=== PATIENT | female | born 1950 | race African-American/Black ===

== ENCOUNTER 2017-11-02 07:21 | Emergency (ER) | payer MEDICARE, OTHER, SELFPAY ==
[2017-11-02 07:22] VITALS: BP 173/84; PULSE 71; RESP 16; TEMP 36.7; O2SAT 97; BMI 31.1
--- NOTE | 2017-11-02 07:29 | RAD_ITS ---
STUDY: X-RAY - RIGHT ANKLE REASON FOR EXAM: Female, 67 years old. Status post fall with ankle pain and swelling. TECHNIQUE: 3 view(s) of the ankle. COMPARISON: None. FINDINGS: Osseous alignment appear anatomic. The ankle mortise is preserved. There is no acute fracture lucency. There is no cortical step-off. 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 There is a well-corticated degenerative plantar spur on the calcaneus. There is nonspecific marked lateral soft tissue swelling. RAD/Ankle min 3 Views IMPRESSION: No radiographically evident acute osseous abnormality. Marked lateral soft tissue swelling/edema. Electronically Signed: Ephraim Leonard MD at 8:24 EDT , Service support ,
--- NOTE | 2017-11-02 07:29 | RAD_ITS ---
STUDY: X-RAY - RIGHT TIBIA AND FIBULA REASON FOR EXAM: Female, 67 years old. Pain status post fall. TECHNIQUE: 2 view(s) of the tibia and fibula were obtained. COMPARISON: None. FINDINGS: Osseous alignments appear anatomic. There is no acute fracture lucency. There is no cortical step-off. There is soft tissue swelling/edema overlying the lateral malleolus. A well corticated plantar calcaneal spur is identified degenerative in nature. RAD/Tibia & Fibula 2 Views IMPRESSION: No plain film evident acute osseous abnormality. Lateral malleolar soft tissue swelling. Degenerative anterior spur on the calcaneus. Electronically Signed: Ephraim Leonard MD at 8:25 EDT , Service support ,
[2017-11-02] MEDS: Ondansetron ODT 4 MG Tablet PO (08:03)
[2017-11-02] MEDS: Morphine 4 MG/ML Syringe IM (08:03)
--- NOTE | 2017-11-02 08:29 | ED.VISSUMM ---
- ER Visit Summary Date of Service: 11/02/17 Chief Complaint: [Injury right ankle] History of Present Illness: The patient is a 67 F [presents to the emergency department via EMS after sustaining an injury to her right ankle during a fall this morning. Patient states that she had gone out to her car to take her to dialysis when she slipped and fell injuring her right ankle. Patient initially able to bear some weight but actually had to crawl into the house where she was able to get onto the couch and call for help. Patient denies any other injuries. Patient denies striking her head. Patient denies neck pain. Patient denies chest pain or abdominal pain.] Physical Examination: [HEENT-PERRLA, EOMI. Cranial nerves II through XII grossly intact. TMs clear. Mucous membranes moist. No adenopathy. No C-spine tenderness on palpation. Cardiovascular-regular rate and rhythm without murmur or ectopy Lungs-clear to auscultation, chest wall stable without crepitus or subcu emphysema Abdomen-normoactive bowel sounds, soft, nontender, no rebound or rigidity, no peritoneal signs. Extremities-intact ?4, normal range of motion, normal pulses, atraumatic]. Right ankle-patient has soft tissue swelling over the lateral malleolus. Patient has tenderness over the proximal fibular head and lateral malleolus. No pain at the base of the fifth metatarsal. Neurovascular intact. No obvious deformity. Test Results: [X-rays of the right ankle and right tib-fib obtained showed no fractures.] Emergency Department Course and Treatment: [Patient will receive Skip wrap, air splint, and crutches. Patient was given 4 mg of morphine and 4 mg of Zofran on arrival.] Treatment Plan: [Patient advised to ice and elevate extremity and follow-up with her primary care physician in 7-10 days. Patient will be given a prescription for 12 [place].] Disposition: [Discharged to home in stable condition.] Impression: [Right ankle sprain] This note was generated with Scan•Jour dictation software. It may contain incorrect words, spelling, and punctuation that were not noted in review of the chart prior to signing ED Disposition - Plan for ED Patient: Chief Complaint: Lower Extremity Injury Referrals: Annette Mckniley MD [Primary Care Provider] -
--- NOTE | 2017-11-02 08:32 | ED.DEP ---
ED Disposition - Plan for ED Patient: Chief Complaint: Lower Extremity Injury Instructions: ED Sprain Ankle W X Ray Prescriptions: Hydrocodone Bitart/Apap 5-325 [Fol[place] 5/325] 1 - 2 tab PO Q4H PRN PRN 3 Days #12 tab PRN Reason: Pain Referrals: Annette Mckinley MD [Primary Care Provider] - 5-7 Days
== END 2017-11-02 08:44 | disposition home or self-care (01) ==
PROVIDERS: Emergency Provider Emergency Medicine; Family Provider Internal Medicine; PCP Internal Medicine
DX: S93.401A Sprain of unspecified ligament of right ankle, initial encounter (principal); W01.0XXA Fall on same level from slipping, tripping and stumbling without subsequent striking against object, initial encounter; Y93.01 Activity, walking, marching and hiking; Y92.008 Other place in unspecified non-institutional (private) residence as the place of occurrence of the external cause; Y99.8 Other external cause status
CPT/HCPCS: 73590; 73610; 96372; 99285

== ENCOUNTER 2018-06-15 23:18 | Observation (INO) | payer MEDICARE, OTHER, SELFPAY ==
[2018-06-15 23:20] VITALS: BP 157/74; PULSE 87; RESP 19; TEMP 36.8; O2SAT 98; BMI 35.4
--- NOTE | 2018-06-15 23:20 | ED.RN ---
CALLED FOR EKG PER RN REQUEST, PULLED OLD EKGS FOR
--- NOTE | 2018-06-15 23:30 | EKG12_ITS ---
Test Reason : CP Blood Pressure : / mmHG Vent. Rate : 082 BPM Atrial Rate : 082 BPM P-R Int : 156 ms QRS Dur : 078 ms QT Int : 382 ms P-R-T Axes : 046 -24 105 degrees QTc Int : 446 ms Normal sinus rhythm Possible Left atrial enlargement T wave abnormality, consider lateral ischemia Abnormal ECG Confirmed by BRIDGET GUADALUPE, LUIZ ([id number]), editor index JAMES MULLEN ([id number]) on 06/19/2018 2:51:26 PM Referred By: JADE Confirmed By:LUIZ GILL MD
--- NOTE | 2018-06-15 23:31 | ED.VISSUMM ---
- ER Visit Summary Date of Service: 06/15/18 Chief Complaint: Chest pain History of Present Illness: The patient is a 67 F who presents for chest pain for approximately 7 hours. Onset was at rest, and pain is in the right chest, described as a bad dull ache. Pain waxes and wanes in intensity but has never completely gone away. It is not relieved or worsened by anything, including movement, breathing, cough, exertion or touch. Patient tried a Valium and half a Vicodin without any relief. She thought it might be a muscle spasm. She states she had similar pain about about 3 years ago but does not know what it was from. She is had a cardiac catheterization in the past and states she had a small amount of disease. She is diabetic, hypertensive, has a history of shingles but is not quite sure exactly where. She is not on any blood thinners. No history of blood clot in the lungs or legs, no recent travel or surgery. Physical Examination: Vital signs: afebrile, hemodynamically stable, no hypoxia on room air General: well nourished, well developed, in mild discomfort, clutching her right chest and breast with the left hand Skin: warm, dry, no rash, no pallor, no hyperesthesia to the right back or chest HEENT: normocephalic and atraumatic; PERRL, EOMI, moist mucous membranes Cardiovascular: regular rate and rhythm without murmurs, no peripheral edema, 2+ pulses all distal extremities Respiratory: No increased work of breathing, lungs are clear to auscultation bilaterally, no rales, rhonchi or wheezing Abdominal: Abdomen is soft, nontender with normoactive bowel sounds, no guarding or rebound, no masses MSK: Moves all extremities, no deformities, normal strength Neuro: Awake and alert, oriented ?4. No facial droop, sensation and motor function intact and symmetric Test Results: Abnormal Lab Results 06/16/18 06/16/18 06/16/18 00:05 00:05 00:05 WBC 9.1 RBC 4.90 Hgb 12.9 Hct 39.4 MCV 80.4 L MCH 26.3 L MCHC 32.7 RDW 14.2 RDW Differential 41.3 Plt Count 176 MPV 11.6 Immature Gran % (Auto) 0.500 Neut % (Auto) 52.2 Lymph % (Auto) 36.0 [place] % (Auto) 8.2 Eos % (Auto) 2.4 Baso % (Auto) 0.7 Absolute Neuts (auto) 4.8 Absolute Lymphs (auto) 3.29 Total Counted Not Reportable PT 12.5 INR 0.9 APTT 26.9 Sodium 136 Potassium 3.8 Chloride 100 Carbon Dioxide 29.0 Anion Gap 7 BUN 23 H Creatinine 1.22 H Estim Creat Clear Calc 33.30 Est GFR (MDRD) Af Amer 56 L Est GFR (MDRD) Non-Af 47 L BUN/Creatinine Ratio 18.9 Glucose 310 H Calcium 8.3 L Troponin I 0.022 Clinical Impression(s) from Imaging Studies Chest X-Ray 06/15/18 23:55 IMPRESSION: There is no acute cardiopulmonary disease. Other nonacute findings as outlined above. Electronically Signed: Nury Falcon MD at 0:09 EST , Service support , Chest CTA 06/16/18 01:13 IMPRESSION: No demonstrated pulmonary embolism, aneurysm, leak or arterial dissection. Mild pericardial fluid, coronary artery calcification, ossification along the aortic arch and left ventricular wall thickening. Emphysema. No pulmonary edema, congestive heart failure or confluent pneumonia. Other nonacute findings as outlined above. Electronically Signed: Nury Falcon MD at 2:44 EST , Service support , Medications Given Discontinued Medications Morphine Sulfate () 4 mg IV X1 ONE Stop: 06/16/18 00:26 Nitroglycerin (Nitrostat) 0.4 mg SUBLINGUAL Q5M MÓNICA Stop: 06/15/18 23:41 Last Admin: 06/16/18 00:04 Dose: 0.4 mg Admin: 06/15/18 23:54 Dose: 0.4 mg Admin: 06/15/18 23:38 Dose: 0.4 mg Emergency Department Course and Treatment: Patient received aspirin by EMS and 1 nitroglycerin without any change in her discomfort. EKG concerning for new T wave inversions in the anterolateral leads that were not present on an EKG from 2011. Otherwise a sinus rhythm. Chest pain workup was performed. Patient was given additional nitro. She does have a history of shingles which she thinks was on her right torso but does not equate her current pain to her post-herpetic neuralgia. Given her EKG changes, significant risk factors, and the description of the pain, cardiac etiology must be ruled out before considering postherpetic neuralgia. Patient had a troponin within normal range. Glucose elevated at 310. Creatinine of 1.22, with prior creatinine for comparison from 2012. This is likely patient's baseline. No electrolyte derangements. No leukocytosis or anemia. Chest x-ray showed no acute process. Patient has no risk factors for pulmonary embolism, no hypoxia, no tachycardia, and no tachypnea. Thus PE is low on the differential. However, she is having severe right-sided pain, constant, and patient is not PERC negative due to age. She is low risk per Well's criteria. D-dimer obtained and was elevated, even per age-adjusted criteria. CTA showed no PE or dissection. A chart review did show an EKG from 2017 that exhibited the T wave inversions present on patient's EKG today. Thus this may be baseline for her. Due to patient's significant risk factors, her right-sided chest pain, and T wave inversions on EKG, she will be admitted for further chest pain workup. Patient discussed with Dr. Lozano for admission. Treatment Plan: [] Disposition: [] Impression: right-sided chest pain, concern for ACS This note was generated with Olu[employer]ai dictation software. It may contain incorrect words, spelling, and punctuation that were not noted in review of the chart prior to signing ED Disposition - Plan for ED Patient: Disposition: Acute Care Hospital [facility] Chief Complaint: Chest Pain
--- NOTE | 2018-06-15 23:34 | ED.DCSUM_ITS ---
- ER Visit Summary Date of Service: 06/15/18 Chief Complaint: Chest pain History of Present Illness: The patient is a 67 F who presents for chest pain for approximately 7 hours. Onset was at rest, and pain is in the right chest, described as a bad dull ache. Pain waxes and wanes in intensity but has never completely gone away. It is not relieved or worsened by anything, including movement, breathing, cough, exertion or touch. Patient tried a Valium and half a Vicodin without any relief. She thought it might be a muscle spasm. She states she had similar pain about about 3 years ago but does not know what it was from. She is had a cardiac catheterization in the past and states she had a small amount of disease. She is diabetic, hypertensive, has a history of shingles but is not quite sure exactly where. She is not on any blood thinners. No history of blood clot in the lungs or legs, no recent travel or surgery. Physical Examination: Vital signs: afebrile, hemodynamically stable, no hypoxia on room air General: well nourished, well developed, in mild discomfort, clutching her right chest and breast with the left hand Skin: warm, dry, no rash, no pallor, no hyperesthesia to the right back or chest HEENT: normocephalic and atraumatic; PERRL, EOMI, moist mucous membranes Cardiovascular: regular rate and rhythm without murmurs, no peripheral edema, 2+ pulses all distal extremities Respiratory: No increased work of breathing, lungs are clear to auscultation bilaterally, no rales, rhonchi or wheezing Abdominal: Abdomen is soft, nontender with normoactive bowel sounds, no guarding or rebound, no masses MSK: Moves all extremities, no deformities, normal strength Neuro: Awake and alert, oriented ?4. No facial droop, sensation and motor function intact and symmetric Test Results: Abnormal Lab Results 06/16/18 06/16/18 06/16/18 00:05 00:05 00:05 WBC 9.1 RBC 4.90 Hgb 12.9 Hct 39.4 MCV 80.4 L MCH 26.3 L MCHC 32.7 RDW 14.2 RDW Differential 41.3 Plt Count 176 MPV 11.6 Immature Gran % (Auto) 0.500 Neut % (Auto) 52.2 Lymph % (Auto) 36.0 [place] % (Auto) 8.2 Eos % (Auto) 2.4 Baso % (Auto) 0.7 Absolute Neuts (auto) 4.8 Absolute Lymphs (auto) 3.29 Total Counted Not Reportable PT 12.5 INR 0.9 APTT 26.9 Sodium 136 Potassium 3.8 Chloride 100 Carbon Dioxide 29.0 Anion Gap 7 BUN 23 H Creatinine 1.22 H Estim Creat Clear Calc 33.30 Est GFR (MDRD) Af Amer 56 L Est GFR (MDRD) Non-Af 47 L BUN/Creatinine Ratio 18.9 Glucose 310 H Calcium 8.3 L Troponin I 0.022 Clinical Impression(s) from Imaging Studies Chest X-Ray 06/15/18 23:55 IMPRESSION: There is no acute cardiopulmonary disease. Other nonacute findings as outlined above. Electronically Signed: Nury Falcon MD at 0:09 EST , Service support , Chest CTA 06/16/18 01:13 IMPRESSION: No demonstrated pulmonary embolism, aneurysm, leak or arterial dissection. Mild pericardial fluid, coronary artery calcification, ossification along the aortic arch and left ventricular wall thickening. Emphysema. No pulmonary edema, congestive heart failure or confluent pneumonia. Other nonacute findings as outlined above. Electronically Signed: Nury Falcon MD at 2:44 EST , Service support , Medications Given Discontinued Medications Morphine Sulfate () 4 mg IV X1 ONE Stop: 06/16/18 00:26 Nitroglycerin (Nitrostat) 0.4 mg SUBLINGUAL Q5M MÓNICA Stop: 06/15/18 23:41 Last Admin: 06/16/18 00:04 Dose: 0.4 mg Admin: 06/15/18 23:54 Dose: 0.4 mg Admin: 06/15/18 23:38 Dose: 0.4 mg Emergency Department Course and Treatment: Patient received aspirin by EMS and 1 nitroglycerin without any change in her discomfort. EKG concerning for new T wave inversions in the anterolateral leads that were not present on an EKG from 2011. Otherwise a sinus rhythm. Chest pain workup was performed. Patient was given additional nitro. She does have a history of shingles which she thinks was on her right torso but does not equate her current pain to her post-herpetic neuralgia. Given her EKG changes, significant risk factors, and the description of the pain, cardiac etiology must be ruled out before considering postherpetic neuralgia. Patient had a troponin within normal range. Glucose elevated at 310. Creatinine of 1.22, with prior creatinine for comparison from 2012. This is likely patient's baseline. No electrolyte derangements. No leukocytosis or anemia. Chest x-ray showed no acute process. Patient has no risk factors for pulmonary embolism, no hypoxia, no tachycardia, and no tachypnea. Thus PE is low on the differential. However, she is having severe right-sided pain, constant, and patient is not PERC negative due to age. She is low risk per Well's criteria. D-dimer obtained and was elevated, even per age-adjusted criteria. CTA showed no PE or dissection. A chart review did show an EKG from 2017 that exhibited the T wave inversions present on patient's EKG today. Thus this may be baseline for her. Due to patient's significant risk factors, her right-sided chest pain, and T wave inversions on EKG, she will be admitted for further chest pain workup. Patient discussed with Dr. Lozano for admission. Treatment Plan: [] Disposition: [] Impression: right-sided chest pain, concern for ACS This note was generated with Quintiles dictation software. It may contain incorrect words, spelling, and punctuation that were not noted in review of the chart prior to signing ED Disposition - Plan for ED Patient: Disposition: Acute Care Hospital [facility] Chief Complaint: Chest Pain
[2018-06-15 23:35] VITALS: O2SAT 97
[2018-06-15 23:38] VITALS: BP 196/82; PULSE 77
[2018-06-15 23:54] VITALS: BP 180/87; PULSE 80
--- NOTE | 2018-06-15 23:55 | RAD_ITS ---
STUDY: X-RAY CHEST REASON FOR EXAM: Female, 67 years old. Sternal chest pain with radiation to jaw, pain comes and goes TECHNIQUE: PA and lateral views of the chest. COMPARISON: Prior comparison studies are not available for review at this time. FINDINGS: There are superimposed monitor leads. The lungs are clear and expanded. There is no demonstrated pleural abnormality. Normal size heart. Normal mediastinum and stefany. Normal visualized pulmonary arteries. There is atherosclerotic calcification of the aortic arch with tortuosity. There are degenerative changes of the visualized thoracic spine. There is degenerative osteoarthritis of the bilateral shoulders and prior ORIF right shoulder. There is no demonstrated abnormality of the visualized soft tissue structures of the upper abdomen. RAD/Chest PA and Lateral IMPRESSION: There is no acute cardiopulmonary disease. Other nonacute findings as outlined above. Electronically Signed: Nury Falcon MD at 0:09 EST , Service support ,
[2018-06-16] VITALS (12 sets, daily range): BP systolic 129–202; BP diastolic 70–100; PULSE 63–94; RESP 17–24; TEMP 36.2–36.6; O2SAT 95–99; BMI 34.1; BMI 34.2
[2018-06-16 00:19] LABS: Absolute Lymphocyte Count 3.29 X10^3/ul (0.83-4.51); Absolute Neutrophil Count 4.8 X10^3/uL (2.0-7.7); Basophil# 0.06 X10^3/uL; Basophil% 0.7 % (0-1); Eosinophil# 0.22 X10^3/uL; Eosinophils% 2.4 % (0-5); Hematocrit 39.4 % (37-47); Hemoglobin 12.9 g/dl (12.0-15.0); Lymphocyte # 3.29 X10^3/ul (4.0); Mean Corp Hgb Conc 32.7 g/gl (32-36); Mean Corpuscular Hgb 26.3 pg (27.0-32.0); Mean Corpuscular Volume 80.4 fL (81-99); Mean Platelet Vol. 11.6 fl (6.2-12.0); Monocyte# 0.75 X10^3/uL; Monocyte% 8.2 % (0-10); Neutrophil # 4.76 X10^3/uL (2.7-7.7); Neutrophil % 52.2 % (47-70); Platelet Count 176 K/mm3 (150-450); RBC Distribution Width CV 14.2 % (11.6-14.6); RBC Distribution Width SD 41.3 fl (35.1-43.9); White Blood Count 9.1 K/mm3 (4.4-11.0)
[2018-06-16 00:21] LABS: POSITIVE COUNT NO; POSITIVE DIFFERENTIAL NO; POSITIVE MORPHOLOGY NO
[2018-06-16 00:26] LABS: International Normalized Ratio 0.9; Partial Thromboplast Time 26.9 Seconds (24.1-36.2); Prothrombin Time (Protime)PT. 12.5 SECONDS (11.7-14.9)
[2018-06-16 00:27] LABS: Anion Gap 7 (5-15); BUN 23 mg/dL (7-18); BUN/Creat Ratio 18.9 RATIO (10-20); Calcium,Total 8.3 mg/dL (8.5-10.1); Chloride 100 mmol/L (98-107); Creatinine, Serum 1.22 mg/dL (0.55-1.02); EST Glomerular Filtration Rate 47 mL/min (>60); Est Glom Filt Rate - Afr Amer 56 mL/min (>60); Glucose 310 mg/dL (74-106); Potassium 3.8 mmol/L (3.5-5.1); Sodium Level 136 mmol/L (136-145)
[2018-06-16 01:12] LABS: D-Dimer Quantitative (DVT/PE) 0.92 FEU/ug/m (0.27-0.49)
--- NOTE | 2018-06-16 01:13 | CT_ITS ---
STUDY: CTA CHEST REASON FOR EXAM: Female, 67 years old. Midsternal chest pain radiating to jaw, elevated d-dimer. History of diabetes, hypertension, ascites RADIATION DOSAGE (If Supplied By Facility): CTDIvol = ( 12.65 ) mGy, DLP = ( 608.27 ) mGycm TECHNIQUE: The examination was performed with the intravenous administration of 100 ml of Isovue 370 contrast material. Post-processing of the angiographic images was performed, with multiplanar reformation and 3D reconstruction. There is obesity, the entirety of soft tissue is not imaged. Individualized dose optimization techniques were used for this CT. COMPARISON: Chest x-ray 06/15/2018. CT chest 02/04/2007 axial images only FINDINGS: Normal enhancement of the main pulmonary artery and right and left pulmonary arteries. Normal enhancement of the bilateral peripheral pulmonary arteries. There is no demonstrated pulmonary embolism. Calcification atheromatous wall thickening of the aortic arch and at the origin of the left subclavian artery. There is a bovine arch as a vascular variant. There is no demonstrated aortic dissection. Mild pericardial fluid. There are calcifications of the coronary arteries. Thickening of the left ventricular wall. Normal mediastinum. Normal hilar regions. Mild symmetric bilateral emphysema with small right, moderate sized subsegmental apical cysts/bulla. Linear changes in the lung bases felt to be chronic likely scarring, minor atelectasis in the left upper lobe.. The lungs are well expanded. Normal pulmonary parenchyma. Normal pleura. Normal chest wall structures. There are degenerative changes of thoracic spine and bilateral shoulder joint status post ORIF left shoulder. Liver is incompletely imaged but appears enlarged. CT/CTA Chest W/WO Contrast IMPRESSION: No demonstrated pulmonary embolism, aneurysm, leak or arterial dissection. Mild pericardial fluid, coronary artery calcification, ossification along the aortic arch and left ventricular wall thickening. Emphysema. No pulmonary edema, congestive heart failure or confluent pneumonia. Other nonacute findings as outlined above. Electronically Signed: Nury Falcon MD at 2:44 EST , Service support ,
--- NOTE | 2018-06-16 01:13 | ED.RN ---
lab called with critical lab results. D dimer 0.92. Dr. Hernandez made aware. no new orders at this time
[2018-06-16] MEDS: Morphine 4 MG/ML Syringe IV (01:22)
[2018-06-16] MEDS: 0.9% Normal Saline 1,000 ML 999 ML IV (01:22)
--- NOTE | 2018-06-16 01:50 | HP.PCM_ITS ---
Problem List (1) Chest pain Status: Acute (2) Anxiety Status: Chronic (3) Hyperlipidemia Status: Chronic Qualifiers: Comment: On statin without side effect. Enc fax seed oil capsules. (4) Hypertension Status: Chronic Comment: Initial BP elevated. Rechecked 136/80 Enc to continue to monitor diet, weight, exercise. (5) Diabetes mellitus Status: Chronic Qualifiers: Diabetes mellitus type: type 2 Comment: Control has improved. A1c down to 7.3 Doing fairly well with diet. Exercise has started to increase. Eating occ snack. (6) Cellulitis of buttock Status: Resolved (7) Hepatitis C Status: Chronic (8) Angina pectoris Status: Chronic (9) Chronic renal failure, stage 3 (moderate) Status: Chronic History of Present Illness Date of Admission: 06/16/18 Chief Complaint: r chest pain The patient is a 67 year old F with a past medical history of hypertension, diabetes mellitus type 2, hyperlipidemia, hepatitis C and reported angina pectoris who presented to the ED at [facility] on 06/15/18 c/o R side chest pain that came on at rest that AM and had been coming and going all day. The pain lasts a few seconds and it radiates around the right side and into the R lower thoracic area. She took Valium and and Vicodin at home but this did not relieve the pain. She received NTG in the ED and this also did not relieve the pain. She denies SOB and she has not had diaphoresis. She denies cough. She denies palpitations. She tells me that she has had a cardiac cath in the past and there was a tiny bit of disease in 1 artery. She has been very anxious lately because her has been in a NH for the past month and he is supposed to be coming home Tuesday. When she saw her PCP recently her BP was up over 200 systolic and this is unusual. She had a stress test a little over a year ago that was negative for ischemia and showed a normal ejection fraction. Vital signs of presentation to the emergency room were temperature 98.3, pulse rate 87, blood pressure 157/74, respiratory rate 19 and she was 97-98% saturated on room air. EKG shows normal sinus rhythm with nonspecific ST and T wave changes in the lateral precordial leads which have been present in the past. CBC was unremarkable and electrolytes were within normal limits. The BUN is 23 with a creatinine of 1.22 which is up from 0.74 in 2016. Troponin was normal at 0.022. A d-dimer was increased at 0.9 and a CTA of the chest has been ordered. Chest x-ray shows no infiltrates, pleural effusions or significant pulmonary vascular congestion. On PE she has pain with palpation of the right anterior chest that tracks along the rib, into the axilla and to the costo-vertebral angle.....the chest pain is reproducible with palpation. OMT was performed on the rib and the pt had resolution of the pain in the back but still had mild pain in the anterior chest. It was much improved. Past Medical History Past Medical History (Chronic Problems): Chronic Problems (Last Reviewed 03/07/18 @ 13:22 by Chika Matute) Anxiety (Chronic) Chronic renal failure, stage 3 (moderate) (Chronic) Hyperlipidemia (Chronic) On statin without side effect. Enc fax seed oil capsules. Hypertension (Chronic) Initial BP elevated. Rechecked 136/80 Enc to continue to monitor diet, weight, exercise. Diabetes mellitus (Chronic) Control has improved. A1c down to 7.3 Doing fairly well with diet. Exercise has started to increase. Eating occ snack. Hepatitis C (Chronic) Angina pectoris (Chronic) Medical History: Medical History (Last Reviewed 06/16/18 @ 01:50 by Dae Lozano DO) Back problem M53.9 Corneal injury S05.8X9A Diabetes type 2, controlled E11.9 Dx : 1998 Last exacerbation : DKA : never Hypoglycemic episode : never ER visit : never Hepatitis K75.9 Right wrist pain M25.531 Allergies metformin Allergy (Verified 06/15/18 23:19) Unknown Home Medications: Ambulatory Orders Medication Instructions Recorded Diazepam [Valium] 5 mg PO DAILY 04/15/16 Lisinopril [Zestril] 20 mg PO BID 04/15/16 Simvastatin [Zocor] 20 mg PO QHS 04/15/16 blood sugar diagnostic strips See Dose Instructions .ROUTE 07/26/17 .MEDSUPPLY #20 ea insulin aspart U- 100 100 unit/mL 10 unit SC TID ml 07/26/17 subcutaneous pen Hydrocodone Bitart/Apap 5-325 1 - 2 tab PO Q4H PRN PRN 3 Days 11/02/17 [[place] 5/325] #12 tab Surgical History: Surgical History (Last Reviewed 06/16/18 @ 01:50 by Dae Lozano DO) History of total abdominal hysterectomy Z98.890, Z90.710 S/P colonoscopy Z98.890 Surgical History: hysterectomy Psychiatric History: No pertinent psych hx [employer] History: No pertinent [employer]PER[employer]OR history Lives: Spouse/ Significant Other Smoking Status: Never smoker Tobacco Use: Non-smoker Alcohol: Rare Drugs: None - *Family History Maternal Family History: Family History (Last Reviewed 06/16/18 @ 01:51 by Dae Lozano DO) Mother Arthritis Father Arthritis History Items: Heart Disease Review of Systems Constitutional: Denies: Anorexia, Chills, Fever, Weight Change HEENT: Denies: Head Aches, Sinus Congestion, Sinus Drainage Cardiovascular: Reports: Chest Pain. Denies: Edema, Light Headedness, Orthopnea, Palpitations, Syncope Respiratory: Denies: Cough, Shortness of breath at rest, Sputum production Gastrointestinal: Denies: Abdominal Pain, Diarrhea, Nausea, Vomiting Genitourinary: Denies: Dysuria Musculoskeletal: Denies: Joint Pain, Joint Tenderness Skin: Denies: Rash, Wounds Neurological: Denies: Focal weakness, Numbness, Tingling, Seizures Psychiatric: Reports: Anxiety. Denies: Depression, Homicidal Ideations, Suicidal Ideations Hematologic/ Lymphatic: Denies: Easy Bruising, Easy Bleeding, Hx of blood clot VTE Information - Inpt Only VTE Present on Admission: No VTE Mechan Device Prophylaxis: SCD's VTE Pharm Prophylaxis ordered?: Yes Patient Problems: Active and Suspected Problems (Last Reviewed 03/07/18 @ 13:22 by Chika Matute) Chest pain (Acute) - Physical Exam General: Alert, Oriented x3, Cooperative, No apparent distress, Well developed, Well nourished HEENT: Atraumatic, PERRLA, EOMI, Normocephalic Oral: Moist Mucosa Neck: Supple, No JVD, Negative Carotid Bruits Lungs: Clear to auscultation, Normal air movement Cardiovascular: Regular rate, Regular Rhythm, Normal S1, Normal S2, No murmurs, No Ectopic Activity, No rub noted, No Gallop Abdomen: Bowel Sounds Present, Soft, Non Tender Extremities: No clubbing, No cyanosis, No edema, Capillary Refill Less than 3 Seconds, Peripheral Pulses Normal, - - onychomycosis of the toenails Skin: No rashes, No breakdown Musculoskeletal: No Tenderness to Palpation of Joints or Extremities, No Muscle Wasting, - - pain with palpation of the R 6 and 7 th ribs that radiates into the axilla and around to the costovertebral angle. Palpation of this rib reproduces the chest pain Neurological: Cranial nerves II-XII grossly intact, Neuro grossly intact Psych/Mental Status: Normal Affect, Appropriate, Anxious Vital Signs Temp Pulse Resp BP Pulse Ox 98.3 F 82 20 H 168/76 H 98 06/15/18 23:20 06/16/18 01:14 06/16/18 01:14 06/16/18 01:14 06/16/18 01:14 Oxygen Delivery Method Room Air Weight: 187 lb 13.341 oz Body Mass Index (BMI) 35.4 Laboratory Tests Past 24 Hrs 06/15/18 06/16/18 06/16/18 00:05 00:05 00:05 WBC 9.1 RBC 4.90 Hgb 12.9 Hct 39.4 MCV 80.4 L MCH 26.3 L MCHC 32.7 RDW 14.2 RDW Differential 41.3 Plt Count 176 MPV 11.6 Immature Gran % (Auto) 0.500 Neut % (Auto) 52.2 Lymph % (Auto) 36.0 [place] % (Auto) 8.2 Eos % (Auto) 2.4 Baso % (Auto) 0.7 Absolute Neuts (auto) 4.8 Absolute Lymphs (auto) 3.29 Total Counted Not Reportable PT 12.5 INR 0.9 APTT 26.9 D-Dimer Quant (PE/DVT) 0.92 H* Sodium Potassium Chloride Carbon Dioxide Anion Gap BUN Creatinine Estim Creat Clear Calc Est GFR (MDRD) Af Amer Est GFR (MDRD) Non-Af BUN/Creatinine Ratio Glucose Calcium Troponin I 06/16/18 00:05 WBC RBC Hgb Hct MCV MCH MCHC RDW RDW Differential Plt Count MPV Immature Gran % (Auto) Neut % (Auto) Lymph % (Auto) [place] % (Auto) Eos % (Auto) Baso % (Auto) Absolute Neuts (auto) Absolute Lymphs (auto) Total Counted PT INR APTT D-Dimer Quant (PE/DVT) Sodium 136 Potassium 3.8 Chloride 100 Carbon Dioxide 29.0 Anion Gap 7 BUN 23 H Creatinine 1.22 H Estim Creat Clear Calc 33.30 Est GFR (MDRD) Af Amer 56 L Est GFR (MDRD) Non-Af 47 L BUN/Creatinine Ratio 18.9 Glucose 310 H Calcium 8.3 L Troponin I 0.022 Assessment/Plan All Active Problems (Last Reviewed 03/07/18 @ 13:22 by Chika Matute) Chest pain (Acute) Cellulitis of buttock (Resolved) Diverticulitis large intestine (Resolved) Impressions 1. Chest pain - with an Abnormal EKG but, unchanged from prior EKG's. Negative stress a little over a year ago. D-Dimer elevated and CTA of the chest has been ordered. 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 However she does have multiple risk factors for CAD so will admit to a monitored bed for serial cardiac enzymes and a stress in the AM if these are negative. 2. Uncontrolled hypertension 3. Hyperlipidemia 4. Diabetes mellitus type 2 5. Morbid obesity 6. Anxiety Await the results of CTA of the chest Admit to a monitored bed on PCU ASA 81 mg PO daily SL NTG 0.4 mg PRN chest pain Serial Cardiac Enzymes Stat EKG PRN CP Chest XRAY - done nuclear Stress test in the AM if the cardiac enzymes are negative DVT prophylaxis ordered Zostrix to the anterior chest for musculoskeletal pain Code Visit OBSV E&M: 05799 Initial observation care L3
--- NOTE | 2018-06-16 02:11 | EKG12_ITS ---
Test Reason : CP ADMIT Blood Pressure : / mmHG Vent. Rate : 074 BPM Atrial Rate : 074 BPM P-R Int : 168 ms QRS Dur : 082 ms QT Int : 416 ms P-R-T Axes : 053 -27 134 degrees QTc Int : 461 ms Normal sinus rhythm T wave abnormality, consider lateral ischemia Abnormal ECG When compared with ECG of 20-MAY-2012 05:41, T wave inversion now evident in Lateral leads Confirmed by BRIDGET GUADALUPE, LUIZ ([id number]), manager editorial JAMES MULLEN ([id number]) on 06/19/2018 2:54:19 PM Referred By: DR MEJIA Confirmed By:LUIZ GILL MD
[2018-06-16 02:18] LABS: Hemoglobin A1c 9.5 % (4.2-6.3)
[2018-06-16] MEDS: Ketorolac 15 MG/ML Vial IV (02:39)
[2018-06-16] MEDS: Capsaicin 0.025% 1 APPLIC Tube TOPICAL (02:56)
[2018-06-16] MEDS: Aspirin 81 MG TAB.CHEW 324 MG PO (03:04)
[2018-06-16] MEDS: 0.9% NaCl Peripheral Flush Adult/Peds IV (03:15)
[2018-06-16] MEDS: Ondansetron 4 MG/2 ML Vial IV (03:15)
[2018-06-16 04:15] LABS: ALB/GLOB Ratio 0.7 RATIO (0.9-2.4); AST(SGOT) 19 U/L (15-37); Alanine Aminotransfer ALT/SGPT 20 U/L (13-56); Alkaline Phosphatase 70 U/L (45-117); Anion Gap 9 (5-15); BUN 21 mg/dL (7-18); BUN/Creat Ratio 18.3 RATIO (10-20); Calcium,Total 8.1 mg/dL (8.5-10.1); Chloride 101 mmol/L (98-107); Cholesterol 215 mg/dL (200); Creatinine, Serum 1.15 mg/dL (0.55-1.02); EST Glomerular Filtration Rate 50 mL/min (>60); Est Glom Filt Rate - Afr Amer 60 mL/min (>60); Estimated Creatinine Clearance 35.33 ml/min; Globulin 4.2 g/dL (2.2-4.2); Glucose 222 mg/dL (74-106); High Density Lipoprotein 58 mg/dL; Potassium 3.9 mmol/L (3.5-5.1); Protein, Total 7.2 g/dL (6.4-8.2); Sodium Level 136 mmol/L (136-145); Triglycerides 126 mg/dL; Very Low Density Lipoprotein 25 mg/dL (5-40)
[2018-06-16] MEDS: Labetalol 200 MG Tablet 400 MG PO ×2 (04:17→11:47)
[2018-06-16] MEDS: Lisinopril 20 MG Tablet PO (06:19)
[2018-06-16] MEDS: Aspirin E.C. 81 MG Tablet PO (06:19)
[2018-06-16 06:52] LABS: International Normalized Ratio 0.9; Prothrombin Time (Protime)PT. 12.4 SECONDS (11.7-14.9)
[2018-06-16 06:53] LABS: Partial Thromboplast Time 25.6 Seconds (24.1-36.2)
[2018-06-16 06:55] LABS: Bedside Glucose 331 mg/dL (70-110)
[2018-06-16] MEDS: hydroCHLOROthiazide 25 MG Tablet PO (11:47)
[2018-06-16] MEDS: diazePAM 5 MG Tablet PO (11:47)
[2018-06-16] MEDS: Insulin Lispro 100 UNIT/ML INSULN.PEN SC (11:47)
--- NOTE | 2018-06-16 11:51 | STRESSREP ---
Stress Test Report Pharmacologic myocardial perfusion stress test. 67-year-old lady with a history of chest pain. Stress protocol: Resting EKG demonstrates normal sinus rhythm with a rate of 67 bpm T wave inversions noted in lead I, II and aVL. 0.4 mg of regadenoson was infused per usual protocol followed by rapid intravenous saline flush injection continuous EKG monitoring was performed. Patient maintained sinus rhythm throughout the recording. Post infusion patient experienced a vagal episode with bradycardia arrhythmia with a heart rate to 41 bpm with 2-1 heart block. She recovered after being put in the Trendelenburg position back to normal sinus rhythm. She did have some nausea and emesis. The maximum heart rate was 104 bpm which was 68% of maximum predicted heart rate the maximum workload was 1 metabolic equivalent. At rest there were no ST or T wave changes noted suggest ischemia at peak infusion no ST or T wave changes were noted suggest ischemia. The resting blood pressure was 132/70 with a final blood pressure of 152/100 mmHg. Myocardial perfusion protocol. 12.0 mCi of technetium 99m sestamibi was injected at rest. 0.4 mg of regadenoson was infused per usual protocol peak infusion 34.0 mCi of technetium 99m sestamibi was injected stress images were obtained stress and rest images were reconstructed and compared in the short axis vertical long horizontal long axis. Gated images were also obtained Perfusion SPECT analysis: Review of the stress images demonstrate normal uptake of tracer noted in all areas of myocardium. The resting images similarly demonstrate normal uptake with tracer in all areas of the myocardium. No areas of reversibility are noted suggest ischemia. Gated SPECT analysis: Gated ejection fraction is 60%. Conclusion: Normal pharmacologic myocardial perfusion stress test. Preserved ejection fraction.
[2018-06-16 12:01] LABS: Bedside Glucose 285 mg/dL (70-110)
--- NOTE | 2018-06-16 12:45 | PCM.DC ---
- Discharge Diagnoses Current Active Problems: Current Active and Chronic Problems (Last Reviewed 06/16/18 @ 01:50 by Dae Lozano DO) Chest pain (Acute) Anxiety (Chronic) Chronic renal failure, stage 3 (moderate) (Chronic) You will use the following diet at home:: Calorie/Carbohydrate Controlled (specify 1200, 1400, etc) - 1800 SANDY Your food should be the consistency of: Regular Your liquids should be the consistency of: Regular/Thin Discharge Activity: Return to Normal Activity Weight Bearing Status: Full weight bearing Allergies/Adverse Reactions: Allergies metformin Allergy (Verified 06/15/18 23:19) Unknown Medications to take at Discharge Diazepam [Valium] 5 mg PO DAILY 04/15/16 Lisinopril [Zestril] 20 mg PO BID 04/15/16 Simvastatin [Zocor] 20 mg PO QHS 04/15/16 blood sugar diagnostic strips See Dose Instructions .ROUTE .MEDSUPPLY #20 ea 07/26/17 insulin aspart U- 100 100 unit/mL subcutaneous pen 10 unit SC TID ml 07/26/17 Hydrocodone Bitart/Apap 5-325 [[place] 5/325] 1 - 2 tab PO Q4H PRN PRN 3 Days #12 tab 11/02/17 Aspirin E.C. [Ecotrin] 81 mg PO DAILY@0800 tablet 06/16/18 Labetalol [Trandate (Beta Stefanie)] 400 mg PO BID #120 tablet 06/16/18 hydroCHLOROthiazide [Hydrochlorothiazide] 12.5 mg PO DAILY #30 capsule 06/16/18 The following prescriptions were given: hydroCHLOROthiazide [Hydrochlorothiazide] 12.5 mg PO DAILY #30 capsule Labetalol [Trandate (Beta Stefanie)] 400 mg PO BID #120 tablet Primary Care Physician: Annette Mckinley MD [Primary Care Provider] - Please follow up with your Primary Care Physician in: AT NEXT APPOINTMENT Test Results: Test results from this visit will be discussed in further detail at your follow-up appointment, if applicable.
--- NOTE | 2018-06-16 12:48 | DCINST_ITS ---
- Discharge Diagnoses Current Active Problems: Current Active and Chronic Problems (Last Reviewed 06/16/18 @ 01:50 by Dae Lozano DO) Chest pain (Acute) Anxiety (Chronic) Chronic renal failure, stage 3 (moderate) (Chronic) You will use the following diet at home:: Calorie/Carbohydrate Controlled (specify 1200, 1400, etc) - 1800 SANDY Your food should be the consistency of: Regular Your liquids should be the consistency of: Regular/Thin Discharge Activity: Return to Normal Activity Weight Bearing Status: Full weight bearing Allergies/Adverse Reactions: Allergies metformin Allergy (Verified 06/15/18 23:19) Unknown Medications to take at Discharge Diazepam [Valium] 5 mg PO DAILY 04/15/16 Lisinopril [Zestril] 20 mg PO BID 04/15/16 Simvastatin [Zocor] 20 mg PO QHS 04/15/16 blood sugar diagnostic strips See Dose Instructions .ROUTE .MEDSUPPLY #20 ea 07/26/17 insulin aspart U- 100 100 unit/mL subcutaneous pen 10 unit SC TID ml 07/26/17 Hydrocodone Bitart/Apap 5-325 [[place] 5/325] 1 - 2 tab PO Q4H PRN PRN 3 Days #12 tab 11/02/17 Aspirin E.C. [Ecotrin] 81 mg PO DAILY@0800 tablet 06/16/18 Labetalol [Trandate (Beta Stefanie)] 400 mg PO BID #120 tablet 06/16/18 hydroCHLOROthiazide [Hydrochlorothiazide] 12.5 mg PO DAILY #30 capsule 06/16/18 The following prescriptions were given: hydroCHLOROthiazide [Hydrochlorothiazide] 12.5 mg PO DAILY #30 capsule Labetalol [Trandate (Beta Stefanie)] 400 mg PO BID #120 tablet Primary Care Physician: Annette Mckinley MD [Primary Care Provider] - Please follow up with your Primary Care Physician in: AT NEXT APPOINTMENT Test Results: Test results from this visit will be discussed in further detail at your follow- up appointment, if applicable.
--- NOTE | 2018-06-17 16:54 | PCM.DC.SUM ---
Discharge Date and Diagnosis Date of Admission: 06/16/18 Date of Discharge: 06/16/18 - Primary Discharge Diagnosis #1 musculoskeletal chest pain #2 uncontrolled hypertension #3 type 2 diabetes #4 hyperlipidemia #5 chronic anxiety - Secondary Discharge Diagnosis Chronic Problems (Last Reviewed 06/16/18 @ 01:50 by Dae Lozano DO) Anxiety (Chronic) Chronic renal failure, stage 3 (moderate) (Chronic) Hyperlipidemia (Chronic) On statin without side effect. Enc fax seed oil capsules. Hypertension (Chronic) Initial BP elevated. Rechecked 136/80 Enc to continue to monitor diet, weight, exercise. Diabetes mellitus (Chronic) Control has improved. A1c down to 7.3 Doing fairly well with diet. Exercise has started to increase. Eating occ snack. Hepatitis C (Chronic) Angina pectoris (Chronic) Hospital Course and Treatment Operations: None Procedures: Nuclear stress test Summary of Care Provided: The patient is a 67 year old F was seen in the emergency room at [facility] with chief complaint of chest pain. She described the chest pain is a bad dull ache workup in the emergency room included an EKG which showed no ischemic changes-stable T wave inversions were noted however compared with a previous EKG, chest x-ray was unremarkable, patient's labs were unremarkable, patient's blood pressure was elevated at 196/82. Patient was placed into observation status for chest pain and uncontrolled hypertension, her blood pressure medications were adjusted, serial cardiac enzymes were obtained which remained normal, patient underwent a nuclear stress test which was negative for reversible ischemia. On 06/16/18, patient was seen and examined: On examination she appeared in good health and spirits. Vital signs as documented. Skin warm and dry and without overt rashes. Neck without JVD. Lungs clear. Heart exam notable for regular rhythm, normal sounds and absence of murmurs, rubs or gallops. Abdomen unremarkable and without evidence of organomegaly, masses, or abdominal aortic enlargement. Extremities nonedematous. Neuro: Cranial nerves II through XII are grossly intact, no focal motor deficits were noted. Psych: Patient is alert and oriented x3, she does not appear to be anxious or depressed. On 06/16/18, patient was seen and examined and felt to be stable for discharge home - Physical Exam Vital Signs Temp Pulse Resp BP Pulse Ox 97.5 F L 78 17 163/81 H 99 06/16/18 11:31 06/16/18 13:38 06/16/18 11:31 06/16/18 11:31 06/16/18 11:31 Oxygen Flow Rate (L/min) 2 Oxygen Delivery Method Room Air Weight: 82 kg Body Mass Index (BMI) 34.1 Intake and Output for Last 24 Hours 06/15/18 06/16/18 06/17/18 23:59 23:59 23:59 Intake Total 1050 / 1050 Balance 1050 / 1050 Discharge Activity: Return to Normal Activity Weight Bearing Status: Full weight bearing Home Medications: Medications to take at Discharge Diazepam [Valium] 5 mg PO DAILY 04/15/16 Lisinopril [Zestril] 20 mg PO BID 04/15/16 Simvastatin [Zocor] 20 mg PO QHS 04/15/16 blood sugar diagnostic strips See Dose Instructions .ROUTE .MEDSUPPLY #20 ea 07/26/17 insulin aspart U- 100 100 unit/mL subcutaneous pen 10 unit SC TID ml 07/26/17 Hydrocodone Bitart/Apap 5-325 [[place] 5/325] 1 - 2 tab PO Q4H PRN PRN 3 Days #12 tab 11/02/17 Aspirin E.C. [Ecotrin] 81 mg PO DAILY@0800 tablet 06/16/18 Labetalol [Trandate (Beta Stefanie)] 400 mg PO BID #120 tablet 06/16/18 hydroCHLOROthiazide [Hydrochlorothiazide] 12.5 mg PO DAILY #30 capsule 06/16/18 Following Prescrptions Were Given to Patient: hydroCHLOROthiazide [Hydrochlorothiazide] 12.5 mg PO DAILY #30 capsule Labetalol [Trandate (Beta Stefanie)] 400 mg PO BID #120 tablet Primary Care Physician: Annette Mckinley MD [Primary Care Provider] - Please follow up with your Primary Care Physician in: AT NEXT APPOINTMENT Disposition: Home Minutes spent on discharge:: 32 Patient Condition:: Stable Medical Necessity - Tobacco Use Smoking Status: Former smoker Tobacco Use: Non-smoker Meaningful Use Info Meaningful Use Diagnoses (Choose all that apply): None applicable Code Visit OBSV E&M: 39542 Observ/hosp same date L3
--- NOTE | 2018-06-17 16:58 | DS.PCM_ITS ---
Discharge Date and Diagnosis Date of Admission: 06/16/18 Date of Discharge: 06/16/18 - Primary Discharge Diagnosis #1 musculoskeletal chest pain #2 uncontrolled hypertension #3 type 2 diabetes #4 hyperlipidemia #5 chronic anxiety - Secondary Discharge Diagnosis Chronic Problems (Last Reviewed 06/16/18 @ 01:50 by Dae Lozano DO) Anxiety (Chronic) Chronic renal failure, stage 3 (moderate) (Chronic) Hyperlipidemia (Chronic) On statin without side effect. Enc fax seed oil capsules. Hypertension (Chronic) Initial BP elevated. Rechecked 136/80 Enc to continue to monitor diet, weight, exercise. Diabetes mellitus (Chronic) Control has improved. A1c down to 7.3 Doing fairly well with diet. Exercise has started to increase. Eating occ snack. Hepatitis C (Chronic) Angina pectoris (Chronic) Hospital Course and Treatment Operations: None Procedures: Nuclear stress test Summary of Care Provided: The patient is a 67 year old F was seen in the emergency room at [facility] with chief complaint of chest pain. She described the chest pain is a bad dull ache workup in the emergency room included an EKG which showed no ischemic changes-stable T wave inversions were noted however compared with a previous EKG, chest x-ray was unremarkable, patient's labs were unremarkable, patient's blood pressure was elevated at 196/82. Patient was placed into observation status for chest pain and uncontrolled hypertension, her blood pressure medications were adjusted, serial cardiac enzymes were obtained which remained normal, patient underwent a nuclear stress test which was negative for reversible ischemia. On 06/16/18, patient was seen and examined: On examination she appeared in good health and spirits. Vital signs as documented. Skin warm and dry and without overt rashes. Neck without JVD. Lungs clear. Heart exam notable for regular rhythm, normal sounds and absence of murmurs, rubs or gallops. Abdomen unremark able and without evidence of organomegaly, masses, or abdominal aortic enlargement. Extremities nonedematous. Neuro: Cranial nerves II through XII are grossly intact, no focal motor deficits were noted. Psych: Patient is alert and oriented x3, she does not appear to be anxious or depressed. On 06/16/18, patient was seen and examined and felt to be stable for discharge home - Physical Exam Vital Signs Temp Pulse Resp BP Pulse Ox 97.5 F L 78 17 163/81 H 99 06/16/18 11:31 06/16/18 13:38 06/16/18 11:31 06/16/18 11:31 06/16/18 11:31 Oxygen Flow Rate (L/min) 2 Oxygen Delivery Method Room Air Weight: 82 kg Body Mass Index (BMI) 34.1 Intake and Output for Last 24 Hours 06/15/18 06/16/18 06/17/18 23:59 23:59 23:59 Intake Total 1050 / 1050 Balance 1050 / 1050 Discharge Activity: Return to Normal Activity Weight Bearing Status: Full weight bearing Home Medications: Medications to take at Discharge Diazepam [Valium] 5 mg PO DAILY 04/15/16 Lisinopril [Zestril] 20 mg PO BID 04/15/16 Simvastatin [Zocor] 20 mg PO QHS 04/15/16 blood sugar diagnostic strips See Dose Instructions .ROUTE .MEDSUPPLY #20 ea 07/26/17 insulin aspart U- 100 100 unit/mL subcutaneous pen 10 unit SC TID ml 07/26/17 Hydrocodone Bitart/Apap 5-325 [[place] 5/325] 1 - 2 tab PO Q4H PRN PRN 3 Days #12 tab 11/02/17 Aspirin E.C. [Ecotrin] 81 mg PO DAILY@0800 tablet 06/16/18 Labetalol [Trandate (Beta Stefanie)] 400 mg PO BID #120 tablet 06/16/18 hydroCHLOROthiazide [Hydrochlorothiazide] 12.5 mg PO DAILY #30 capsule 06/16/18 Following Prescrptions Were Given to Patient: hydroCHLOROthiazide [Hydrochlorothiazide] 12.5 mg PO DAILY #30 capsule Labetalol [Trandate (Beta Stefanie)] 400 mg PO BID #120 tablet Primary Care Physician: Annette Mckinley MD [Primary Care Provider] - Please follow up with your Primary Care Physician in: AT NEXT APPOINTMENT Disposition: Home Minutes spent on discharge:: 32 Patient Condition:: Stable Medical Necessity - Tobacco Use Smoking Status: Former smoker Tobacco Use: Non-smoker Meaningful Use Info Meaningful Use Diagnoses (Choose all that apply): None applicable Code Visit OBSV E&M: 00684 Observ/hosp same date L3
== END 2018-06-16 12:46 | disposition home or self-care (01) ==
LOC: ED 23:51 → PCU 06-16 01:39
PROVIDERS: Admitting Provider Internal Medicine; Emergency Provider Emergency Medicine; Family Provider Internal Medicine; PCP Internal Medicine; Visit Provider Internal Medicine
DX: R07.89 Other chest pain (principal); E78.5 Hyperlipidemia, unspecified; F41.9 Anxiety disorder, unspecified; B18.2 Chronic viral hepatitis C; I12.9 Hypertensive chronic kidney disease with stage 1 through stage 4 chronic kidney disease, or unspecified chronic kidney disease; E11.22 Type 2 diabetes mellitus with diabetic chronic kidney disease; N18.3 Chronic kidney disease, stage 3 (moderate); Z79.899 Other long term (current) drug therapy; Z79.4 Long term (current) use of insulin; E66.01 Morbid (severe) obesity due to excess calories; Z68.34 Body mass index [BMI] 34.0-34.9, adult; Z71.3 Dietary counseling and surveillance; R94.31 Abnormal electrocardiogram [ECG] [EKG]; Z87.891 Personal history of nicotine dependence
CPT/HCPCS: 36415; 71046; 71275; 78452; 80048; 80053; 80061; 82962; 83036; 84484; 85025; 85379; 85610; 85730; 93005; 93017; 96374; 96375; 99218; 99285; A9500; J7030; Q9967; A4216; G0378; J2405; J2785

== ENCOUNTER 2018-06-22 10:52 | Inpatient (IN) | payer MEDICARE, OTHER, SELFPAY ==
[2018-06-21 16:09] VITALS: BMI 34.1
[2018-06-22] VITALS (16 sets, daily range): BP systolic 158–202; BP diastolic 51–99; PULSE 66–79; RESP 16–24; TEMP 36.5–37.1; O2SAT 92–100; BMI 36.1; BMI 36.2; BMI 34.4
--- NOTE | 2018-06-22 11:49 | EKG12_ITS ---
Test Reason : Blood Pressure : / mmHG Vent. Rate : 069 BPM Atrial Rate : 069 BPM P-R Int : 180 ms QRS Dur : 080 ms QT Int : 414 ms P-R-T Axes : 044 -09 138 degrees QTc Int : 443 ms Normal sinus rhythm T wave abnormality, consider lateral ischemia Abnormal ECG Confirmed by BRIDGET GUADALUPE, LUIZ ([id number]), assistant film editor JAMES MULLEN ([id number]) on 06/23/2018 11:54:17 AM Referred By: DAIANA Confirmed By:LUIZ GILL MD
--- NOTE | 2018-06-22 11:50 | RAD_ITS ---
STUDY: X-RAY CHEST REASON FOR EXAM: Female, 67 years old. Shortness of breath and chest pain. TECHNIQUE: PA and lateral views of the chest. COMPARISON: Comparison is made with prior study dated June 15, 2018. FINDINGS: EKG electrodes are seen. There is evidence of vascular congestion and mild CHF. There is blunting of the right cause phrenic angle with right basilar atelectasis. There is borderline cardiomegaly. Normal mediastinum and stefany. Normal visualized pulmonary arteries. There is atherosclerotic calcification of the aortic arch with tortuosity. Normal visualized thoracic spine. Metallic anchor clips are seen in the right humeral head most likely secondary to prior rotator cuff surgery. There is no demonstrated abnormality of the visualized soft tissue structures of the upper abdomen. RAD/Chest PA and Lateral IMPRESSION: Findings in keeping with mild degree of CHF. Blunting of the right costophrenic angle with right basilar atelectasis. Electronically Signed: Teto De La Torre MD at 13:14 EST Tel [phone], Service support ,
--- NOTE | 2018-06-22 11:55 | ED.DCSUM_ITS ---
History of Present Illness Chief Complaint: Shortness of Breath Informant: Patient Onset: Weeks - about 1 Context: Gradual Onset Timing: Continuous - worse this AM Quality: sob Location: chest Current Severity: Mild Maximum Severity: Moderate Worsened by: lying flat. light exertion. conversation while sitting at rest. Relieved by: rest, sitting up. Associated Symptoms: sharp left sided chest pain. LUE discomfort. Narrative: This morning patient had sharp nonpleuritic chest discomfort that she rubbed, and then went away. It only lasted a minute or 2. She noticed it when she woke up before she sat up. She states in the past week or so when she is short of breath, she also has some discomfort in her left arm that she rubs to make improve. She was admitted last week and had a nuclear stress test that was negative, and a negative CT angiography of the chest after a slightly elevated d-dimer. She states that her legs are sore but not swollen. She does not have any known history of heart or lung problems. - Past Medical History (1) Anxiety Status: Chronic (2) Chronic renal failure, stage 3 (moderate) Status: Chronic (3) Diabetes mellitus Status: Chronic Comment: Control has improved. A1c down to 7.3 Doing fairly well with diet. Exercise has started to increase. Eating occ snack. (4) Hepatitis C Status: Chronic (5) Hyperlipidemia Status: Chronic Comment: On statin without side effect. Enc fax seed oil capsules. (6) Hypertension Status: Chronic Comment: Initial BP elevated. Rechecked 136/80 Enc to continue to monitor diet, weight, exercise. Past Medical History - Allergies and Home Meds Allergies/Adverse Reactions: Allergies metformin Allergy (Verified 06/21/18 15:59) Unknown aspirin [ASA] Adverse Reaction (Verified 06/22/18 10:56) Nausea Primary Care Physician: Annette Mckinley MD [Primary Care Provider] - Surgical History: hysterectomy Smoking Status: Former smoker - Family History Maternal Family History: Family History (Last Reviewed 06/21/18 @ 16:01 by Chika Matute) Mother Arthritis Father Arthritis Family History: Reports: Heart Disease Review of Systems All systems negative except as indicated General: Denies: Chills, Fever, Sweats Eyes: Denies: Visual changes - bilaterally, Diplopia ENT: Denies: Rhinorrhea, Sore throat Cardiovascular: Denies: Chest pain, Palpitations Respiratory: Reports: Dyspnea, Cough, Dyspnea on exertion, Orthopnea. Denies: Sputum Gastrointestinal: Denies: Abdominal pain, Nausea, Vomiting, Diarrhea, Melena, Hematochezia Genitourinary: Denies: Dysuria, Hematuria, Frequency Musculoskeletal: Reports: Extremity Pain - BLE from hips, down, symmetrically bilaterally. Denies: Back pain, Swelling Skin: Denies: Rash, Abscess, Wounds Neurological: Denies: Headache, Weakness, Parasthesia, Numbness Psych: Reports: Anxiety. Denies: Suicidal thoughts, Suicidal ideations Endocrine: Denies: Polyuria, Polydipsia Hematologic: Denies: Easy bruising, Easy bleeding Allergy: Denies: Swelling of the mouth, Swelling of the tongue Physical Exam Vital Signs/Narrative: Vital Signs Temp Pulse Resp BP Pulse Ox 06/22/18 10:59 70 100 06/22/18 10:56 98.1 F 70 18 158/53 H 98 Inital Vital Signs reviewed: Yes General: Well nourished, Well developed Head: Normocephalic, Atraumatic Eyes: Perrl, EOMI ENT: Moist mucous membranes, No rhinorrhea. Negative for: Nasal congestion, Sinus tenderness Neck: Supple, Nontender, No lymphadenopathy, No JVD Cardiovascular: Regular rate, Regular rhythm, No murmurs Respiratory: No distress, Chest nontender, Diminished - at bases; otherwise, clear Abdomen: Soft, Nontender, Nondistended, Normal bowel sounds Back: Nontender, Normal Inspection Extremities: Nontender, No edema, Tenderness - both shins, w/ nml color. no calf tenderness, no palpable cords. Skin: Normal color, No rash, No Trauma Neurological: Alert, Oriented x3, Cranial nerves II-XII grossly intact, Normal Strength, Normal Sensation Psychological: Normal affect Diagnostic/Tx/Re-eval Impressions Chest X-Ray 06/22/18 11:50 IMPRESSION: Findings in keeping with mild degree of CHF. Blunting of the right costophrenic angle with right basilar atelectasis. Electronically Signed: Teto De La Torre MD at 13:14 EST Tel [phone], Service support , 06/22/18 11:50 Chest PA and Lateral [RAD] Stat Laboratory Results 06/22/18 06/22/18 06/22/18 13:15 13:15 13:15 WBC 8.3 RBC 4.61 Hgb 11.8 L Hct 37.9 MCV 82.2 MCH 25.6 L MCHC 31.1 L RDW 14.7 H RDW Differential 43.8 Plt Count 161 MPV 10.5 Immature Gran % (Auto) 0.200 Neut % (Auto) 59.8 Lymph % (Auto) 30.5 [place] % (Auto) 6.1 Eos % (Auto) 2.6 Baso % (Auto) 0.8 Absolute Neuts (auto) 5.0 Absolute Lymphs (auto) 2.54 Total Counted Not Reportable Sodium 144 Potassium 4.4 Chloride 109 H Carbon Dioxide 29.0 Anion Gap 6 BUN 21 H Creatinine 1.10 H Estim Creat Clear Calc 36.94 Est GFR (MDRD) Af Amer 63 Est GFR (MDRD) Non-Af 52 L BUN/Creatinine Ratio 19.1 Glucose 137 H Calcium 8.8 Troponin I 0.137 H B-Natriuretic Peptide 272.7 H - Rhythm Strip Rhythm Strip: Sinus Rhythm Rate: 70 Ectopy: None - EKG Initial EKG Interpretation: Sinus Rhythm, No Acute Injury Pattern, Inverted T-Waves - V4-6, 1 & aVL, - - no ST dep/jamel Prior: Unchanged - Medical Decision Making Patient is comfortable and stable without chest pain, her workup shows an abnormal troponin, she does have some possibly ischemic lateral EKG abnormalities that were present on her prior EKG. Plan is for admission and further evaluation. Of note, patient has had a negative/normal stress test last week in the hospital. Blood pressures were high then, and they are climbing here in the ER. Initially she was in the 150s now she is at about 200. She feels much better after nebulizer treatment, she is additionally given IV Lasix. I spoke with Dr. Mcdowell, who advises additionally giving her aspirin along with medicine to treat her side effects to it, Norvasc 10 mg, and holding off on any anticoagulation, with plans to perform heart cath in the morning. ED Disposition - Plan for ED Patient: Disposition: Acute Care Hospital [facility] Chief Complaint: Shortness of Breath Diagnosis: ACS (acute coronary syndrome), Hypertensive urgency Referrals: Annette Mckinley MD [Primary Care Provider] -
[2018-06-22] MEDS: Albuterol 2.5 MG/3 ML VIAL.NEB. INHALATION ×2 (12:06→15:44)
[2018-06-22] MEDS: Ipratropium/Albuterol Sulfate 3 ML AMPUL.NEB INHALATION (12:06)
[2018-06-22 13:38] LABS: Absolute Lymphocyte Count 2.54 X10^3/ul (0.83-4.51); Basophil# 0.07 X10^3/uL; Basophil% 0.8 % (0-1); Eosinophil# 0.22 X10^3/uL; Eosinophils% 2.6 % (0-5); Hematocrit 37.9 % (37-47); Hemoglobin 11.8 g/dl (12.0-15.0); Lymphocyte # 2.54 X10^3/ul (4.0); Lymphocyte % 30.5 % (19-41); Mean Corp Hgb Conc 31.1 g/gl (32-36); Mean Corpuscular Hgb 25.6 pg (27.0-32.0); Mean Corpuscular Volume 82.2 fL (81-99); Mean Platelet Vol. 10.5 fl (6.2-12.0); Monocyte# 0.51 X10^3/uL; Monocyte% 6.1 % (0-10); Neutrophil # 4.98 X10^3/uL (2.7-7.7); Neutrophil % 59.8 % (47-70); Platelet Count 161 K/mm3 (150-450); RBC Distribution Width CV 14.7 % (11.6-14.6); RBC Distribution Width SD 43.8 fl (35.1-43.9); Red Blood Count 4.61 M/mm3 (4.2-5.4); White Blood Count 8.3 K/mm3 (4.4-11.0)
[2018-06-22 13:39] LABS: POSITIVE COUNT NO; POSITIVE DIFFERENTIAL NO; POSITIVE MORPHOLOGY NO
[2018-06-22 13:46] LABS: BUN 21 mg/dL (7-18); Estimated Creatinine Clearance 36.94 ml/min; Glucose 137 mg/dL (74-106)
[2018-06-22 13:47] LABS: Anion Gap 6 (5-15); BUN/Creat Ratio 19.1 RATIO (10-20); Calcium,Total 8.8 mg/dL (8.5-10.1); Chloride 109 mmol/L (98-107); EST Glomerular Filtration Rate 52 mL/min (>60); Est Glom Filt Rate - Afr Amer 63 mL/min (>60); Potassium 4.4 mmol/L (3.5-5.1); Sodium Level 144 mmol/L (136-145)
[2018-06-22 14:03] LABS: BNP,B-Type NATRIURETIC PEPTIDE 272.7 pg/mL (0-100)
[2018-06-22] MEDS: Aspirin 325 MG Tablet PO (15:56)
[2018-06-22] MEDS: Ondansetron 4 MG/2 ML Vial IV (15:56)
--- NOTE | 2018-06-22 15:58 | HP.PCM_ITS ---
Problem List (1) Chest pain Status: Acute (2) Anxiety Status: Chronic (3) Hypertensive urgency Status: Acute (4) Hyperlipidemia Status: Chronic Qualifiers: Comment: On statin without side effect. Enc fax seed oil capsules. (5) Hypertension Status: Chronic Comment: Initial BP elevated. Rechecked 136/80 Enc to continue to monitor diet, weight, exercise. 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 A1c down to 7.3 Doing fairly well with diet. Exercise has started to increase. Eating occ snack. History of Present Illness Date of Admission: 06/22/18 Chief Complaint: Chest pressure/SOB The patient is a 67 year old F with PMH as below who was recently admitted to the hospital for right-sided chest pain a little less than a week ago. At that time she had a nuclear stress test as well as a CTA of her chest to rule out a PE. Both the CTA and the stress test were negative. She presents again today to the ER for a 2-second episode of chest pain that she was able to rub away, as well as chest pressure and shortness of breath. She says that the chest pressure is new and is different than the right-sided chest pain she was having a week ago. She states that the chest pressure is mostly now on her left side and up into her throat. In the ER she had an EKG which was unchanged from the one a week ago, and she did have a troponin which was elevated to .137, last week during her admission for chest pain her troponins remained negative. The ER physician also called cardiology who recommended a dose of aspirin and possible cardiac catheterization in the morning. Past Medical History Past Medical History (Chronic Problems): Chronic Problems (Last Reviewed 06/21/18 @ 16:01 by Chika Matute) Anxiety (Chronic) Chronic renal failure, stage 3 (moderate) (Chronic) Hyperlipidemia (Chronic) On statin without side effect. Enc fax seed oil capsules. Hypertension (Chronic) Initial BP elevated. Rechecked 136/80 Enc to continue to monitor diet, weight, exercise. Diabetes mellitus (Chronic) Control has improved. A1c down to 7.3 Doing fairly well with diet. Exercise has started to increase. Eating occ snack. Hepatitis C (Chronic) Angina pectoris (Chronic) Medical History: Medical History (Last Reviewed 06/21/18 @ 16:01 by Chika Matute) Back problem M53.9 Corneal injury S05.8X9A Diabetes type 2, controlled E11.9 Dx : 1998 Last exacerbation : DKA : never Hypoglycemic episode : never ER visit : never Hepatitis K75.9 Right wrist pain M25.531 Allergies metformin Allergy (Verified 06/21/18 15:59) Unknown aspirin [ASA] Adverse Reaction (Verified 06/22/18 10:56) Nausea Home Medications: Ambulatory Orders Medication Instructions Recorded Lisinopril [Zestril] 20 mg PO BID 04/15/16 Simvastatin [Zocor] 20 mg PO QHS 04/15/16 insulin aspart U- 100 100 unit/mL 10 unit SC TIDCM ml 07/26/17 subcutaneous pen Hydrocodone Bitart/Apap 5-325 1 - 2 tab PO Q4H PRN PRN 3 Days 11/02/17 [[place] 5/325] #12 tab Labetalol [Trandate (Beta Stefanie)] 400 mg PO BID #120 tab 06/16/18 hydroCHLOROthiazide 12.5 mg PO DAILY #30 cap 06/16/18 [Hydrochlorothiazide] Diazepam [Valium] 2.5 mg PO PRN PRN 06/22/18 Insulin Detemir [Levemir FlexPen] 10 units SQ QHS 06/22/18 Insulin Detemir [Levemir FlexPen] 17 units SQ DAILY 06/22/18 Lidocaine [Lidoderm Patch] 1 patch TOPICAL DAILY 06/22/18 Nitroglycerin [Nitrostat] 0.4 mg SUBLINGUAL Q5M PRN 06/22/18 Surgical History: Surgical History (Last Reviewed 06/21/18 @ 16:01 by Chika Matute) History of total abdominal hysterectomy Z98.890, Z90.710 S/P colonoscopy Z98.890 Surgical History: hysterectomy Smoking Status: Former smoker Tobacco Use: Cigarettes - *Family History Maternal Family History: Family History (Last Reviewed 06/21/18 @ 16:01 by Chika Matute) Mother Arthritis Father Arthritis History Items: Heart Disease Review of Systems Constitutional: Denies: Chills, Fever, Weight Change HEENT: Denies: Head Aches, Sinus Congestion, Sinus Drainage Cardiovascular: Reports: Chest Pressure, Heaviness. Denies: Chest Pain, Palpitations Respiratory: Reports: Shortness of Breath. Denies: Cough, Shortness of breath at rest, Sputum production Gastrointestinal: Denies: Abdominal Pain, Nausea, Vomiting Genitourinary: Denies: Dysuria Musculoskeletal: Denies: Joint Pain, Joint Tenderness Skin: Denies: Rash, Wounds Neurological: Denies: Numbness, Tingling, Focal weakness Psychiatric: Denies: Anxiety, Depression Hematologic/ Lymphatic: Denies: Easy Bruising, Easy Bleeding VTE Information - Inpt Only VTE Present on Admission: No Patient Problems: Active and Suspected Problems (Last Reviewed 06/21/18 @ 16:01 by Chika Matute) ACS (acute coronary syndrome) (Acute) Hypertensive urgency (Acute) - Physical Exam General: Alert, Oriented x3, Cooperative, No apparent distress HEENT: Atraumatic, PERRLA, EOMI, Normocephalic Oral: Moist Mucosa Neck: Supple, No JVD Lungs: Clear to auscultation, Normal air movement, No rhonchi, No wheeze, No rales Cardiovascular: Regular rate, Regular Rhythm, Normal S1, Normal S2, No murmurs Abdomen: Soft, Non Tender, Non-Distended, No Hepato-splenomegaly Extremities: No edema, Capillary Refill Less than 3 Seconds Skin: No rashes, No breakdown Neurological: Neuro grossly intact, Sensory exam intact to light touch and pain Psych/Mental Status: Normal Affect, Appropriate Vital Signs Temp Pulse Resp BP Pulse Ox 98.1 F 71 20 H 202/99 H 95 06/22/18 10:56 06/22/18 14:03 06/22/18 14:03 06/22/18 14:03 06/22/18 14:03 Oxygen Delivery Method Room Air Weight: 191 lb 5.78 oz Body Mass Index (BMI) 36.1 Laboratory Tests Past 24 Hrs 06/22/18 06/22/18 06/22/18 13:15 13:15 13:15 WBC 8.3 RBC 4.61 Hgb 11.8 L Hct 37.9 MCV 82.2 MCH 25.6 L MCHC 31.1 L RDW 14.7 H RDW Differential 43.8 Plt Count 161 MPV 10.5 Immature Gran % (Auto) 0.200 Neut % (Auto) 59.8 Lymph % (Auto) 30.5 [place] % (Auto) 6.1 Eos % (Auto) 2.6 Baso % (Auto) 0.8 Absolute Neuts (auto) 5.0 Absolute Lymphs (auto) 2.54 Total Counted Not Reportable Sodium 144 Potassium 4.4 Chloride 109 H Carbon Dioxide 29.0 Anion Gap 6 BUN 21 H Creatinine 1.10 H Estim Creat Clear Calc 36.94 Est GFR (MDRD) Af Amer 63 Est GFR (MDRD) Non-Af 52 L BUN/Creatinine Ratio 19.1 Glucose 137 H Calcium 8.8 Troponin I 0.137 H B-Natriuretic Peptide 272.7 H Assessment/Plan All Active Problems (Last Reviewed 06/21/18 @ 16:01 by Chika Matute) Chest pain (Acute) ACS (acute coronary syndrome) (Acute) Hypertensive urgency (Acute) Cellulitis of buttock (Resolved) Diverticulitis large intestine (Resolved) 1. Hypertensive urgency/Chest pressure with an elevated troponin/SOB/HTN/HLD - will obtain serial enzymes, EKG was unchanged from previous - c/w to cardiology, possible cath in the am, will f/u with an further recommendations - Will add Norvasc to her daily regimen and will continue her home meds - During her last admission her SBP was greater than 170 most of the time - HCTZ, lisinopril BID, Labetalol BID - C/w Statin 2. DM2 - BG is 137 - C/w home medications and monitor 3. Anxiety - stable - can c/w her valium PRN DVT: SCDs Code Visit Inpatient E&M: 03172 Init Hosp L3
[2018-06-22] MEDS: amLODIPine 10 MG Tablet PO (15:59)
[2018-06-22] MEDS: Furosemide 20 MG/2 ML VIAL IV (16:01)
--- NOTE | 2018-06-22 17:11 | PCM.CONS.C ---
Reason for Consult Date of Consultation: 06/22/18 Reason for Consultation: Chest pain History of Present Illness: The patient is a 67 year old F with a past medical history of hypertension and no significant coronary artery disease who presented to the emergency room this afternoon with episodes of chest discomfort. He says that some of these were sharp occasionally radiating to her arm and also her leg. She denied any dizziness or diaphoresis no near syncope or syncope. She was seen in the emergency room and was noted to be markedly hypertensive. She had been in the hospital a week ago and at that time was noted to be hypertensive with EKG changes. Her troponins were negative then. She underwent a pharmacologic myocardial perfusion stress test we did not demonstrate any evidence of ischemia. She was subsequently discharged but has re-presented this time with a similar problem. Her troponins this time were noted to be mildly abnormal and she was also noted to be short of breath. Cardiology was called for further evaluation and management. [] Past Medical History Allergies/Adverse Reactions: Allergies metformin Allergy (Verified 06/21/18 15:59) Unknown aspirin [ASA] Adverse Reaction (Verified 06/22/18 10:56) Nausea Home Medications: Ambulatory Orders Medication Instructions Recorded Lisinopril [Zestril] 20 mg PO BID 04/15/16 Simvastatin [Zocor] 20 mg PO QHS 04/15/16 insulin aspart U- 100 100 unit/mL 10 unit SC TIDCM ml 07/26/17 subcutaneous pen Hydrocodone Bitart/Apap 5-325 1 - 2 tab PO Q4H PRN PRN 3 Days 11/02/17 [[place] 5/325] #12 tab Labetalol [Trandate (Beta Stefanie)] 400 mg PO BID #120 tab 06/16/18 hydroCHLOROthiazide 12.5 mg PO DAILY #30 cap 06/16/18 [Hydrochlorothiazide] Diazepam [Valium] 2.5 mg PO PRN PRN 06/22/18 Insulin Detemir [Levemir FlexPen] 10 units SQ QHS 06/22/18 Insulin Detemir [Levemir FlexPen] 17 units SQ DAILY 06/22/18 Lidocaine [Lidoderm Patch] 1 patch TOPICAL DAILY 06/22/18 Nitroglycerin [Nitrostat] 0.4 mg SUBLINGUAL Q5M PRN 06/22/18 Past Medical History (Chronic Problems): Chronic Problems (Last Reviewed 06/21/18 @ 16:01 by Chika Matute) Anxiety (Chronic) Chronic renal failure, stage 3 (moderate) (Chronic) Hyperlipidemia (Chronic) On statin without side effect. Enc fax seed oil capsules. Hypertension (Chronic) Initial BP elevated. Rechecked 136/80 Enc to continue to monitor diet, weight, exercise. Diabetes mellitus (Chronic) Control has improved. A1c down to 7.3 Doing fairly well with diet. Exercise has started to increase. Eating occ snack. Hepatitis C (Chronic) Angina pectoris (Chronic) Surgical History: hysterectomy - *Family History Maternal Family History: Family History (Last Reviewed 06/21/18 @ 16:01 by Chika Matute) Mother Arthritis Father Arthritis History Items: Heart Disease Smoking Status: Former smoker Tobacco Use: Cigarettes Alcohol: None Drugs: None Review of Systems - Review of Systems General: Denies: Fever, Night Sweats, Fatigue HEENT: Denies: Vision Change Cardiovascular: Reports: Chest Discomfort at Rest. Denies: Chest Discomfort, Shortness of Breath, Orthopnea, PND, Peripheral Edema, Palpitations, Lightheadedness, Dizziness, Near Syncope, Syncope Respiratory: Denies: Cough, Sputum Production, Hemoptysis Gastrointestinal: Denies: Indigestion, Hematemesis, Hematochezia, Melena Genitourinary: Denies: Dysuria, Hematuria Muscoloskeletal: Denies: Myalgias Skin: Denies: Rash Neurological: Denies: Dizziness Psychiatric: Reports: Anxiety Endocrine: Denies: Unexplained Weight Loss Hematologic/ Lymphatic: Denies: Anemia Subjectve: Pleasant lady in no apparent distress Objective: Vital Signs Temp Pulse Resp BP Pulse Ox 97.7 F L 79 18 161/73 H 96 06/22/18 16:50 06/22/18 16:50 06/22/18 16:50 06/22/18 16:50 06/22/18 16:50 Oxygen Delivery Method Room Air Weight: 182 lb 1.629 oz Body Mass Index (BMI) 34.4 General: Awake, Alert, Oriented x 3 HEENT: PERRL, EOMI, Sclera Non Icteric Neck: Supple, Good ROM, No Lymph Node Enlargement Lungs: Clear to auscultation Cardiovascular: Regular Rhythm, Normal S1, Normal S2, No Murmurs, No Rubs, No Gallops Vascular: No Carotid Bruits, Normal Femoral Pulses, Normal Radial Pulses, Normal Dorsalis Pedal Pulse, Normal Posterior Tibial Pulses Abdomen: Bowel Sounds Present, Soft, Non Tender, No HSM, No Organomegaly Extremities: No Cyanosis, No Clubbing, No edema Skin: No Rashes Lymphatic: No Lymph Node Enlargement Neurological: No Focal Motor or Sensory Deficit Psych/Mental Status: Appropriate 06/22/18 13:15: WBC 8.3, RBC 4.61, Hgb 11.8 L, Hct 37.9, MCV 82.2, MCH 25.6 L, MCHC 31.1 L, RDW 14.7 H, RDW Differential 43.8, Plt Count 161, MPV 10.5, Immature Gran % (Auto) 0.200, Neut % (Auto) 59.8, Lymph % (Auto) 30.5, [place] % (Auto) 6.1, Eos % (Auto) 2.6, Baso % (Auto) 0.8, Absolute Neuts (auto) 5.0, Total Counted Not Reportable 06/22/18 13:15: Sodium 144, Potassium 4.4, Chloride 109 H, Carbon Dioxide 29.0, Anion Gap 6, BUN 21 H, Creatinine 1.10 H, Est GFR (MDRD) Af Amer 63, Est GFR (MDRD) Non-Af 52 L, BUN/Creatinine Ratio 19.1, Glucose 137 H, Calcium 8.8, Troponin I 0.137 H 06/22/18 13:15: B-Natriuretic Peptide 272.7 H Rhythm: EKG: ECHO: Stress Test: Cardiac Cath: PCI: CT Surgery: Holter monitor: EPS: PPM: CXR: Chest CT Scan: Assessment/Plan 1. Chest pain Patient presents with chest pain which is somewhat atypical. She has recently had a normal stress test. My recommendation at this time in view of her presentation and her EKG changes will be to proceed with a left heart catheterization. The risk benefits and alternatives have been explained to her she understands and agrees to proceed. 2. Hypertension Her blood pressure appears to be rather uncontrolled. I would recommend that we optimize her blood pressure continuing her beta-stefanie Norvasc 10 mg a day Increase hydrochlorothiazide to 25 mg a day Continue lisinopril 20 mg twice a day Close follow-up by her primary physician 3. Diastolic heart failure She does have a history of diastolic heart failure and she would need some diuretics in addition to the current medications which have been prescribed Thank you for allowing me to participate in the care of your patient. Please don't hesitate to call if any issues arise
--- NOTE | 2018-06-22 17:20 | CON.PCM_ITS ---
Reason for Consult Date of Consultation: 06/22/18 Reason for Consultation: Chest pain History of Present Illness: The patient is a 67 year old F with a past medical history of hypertension and no significant coronary artery disease who presented to the emergency room this afternoon with episodes of chest discomfort. He says that some of these were sharp occasionally radiating to her arm and also her leg. She denied any dizziness or diaphoresis no near syncope or syncope. She was seen in the emergency room and was noted to be markedly hypertensive. She had been in the hospital a week ago and at that time was noted to be hypertensive with EKG changes. Her troponins were negative then. She underwent a pharmacologic myocardial perfusion stress test we did not demonstrate any evidence of ischemia. She was subsequently discharged but has re-presented this time with a similar problem. Her troponins this time were noted to be mildly abnormal and she was also noted to be short of breath. Cardiology was called for further evaluation and management. [] Past Medical History Allergies/Adverse Reactions: Allergies metformin Allergy (Verified 06/21/18 15:59) Unknown aspirin [ASA] Adverse Reaction (Verified 06/22/18 10:56) Nausea Home Medications: Ambulatory Orders Medication Instructions Recorded Lisinopril [Zestril] 20 mg PO BID 04/15/16 Simvastatin [Zocor] 20 mg PO QHS 04/15/16 insulin aspart U- 100 100 unit/mL 10 unit SC TIDCM ml 07/26/17 subcutaneous pen Hydrocodone Bitart/Apap 5-325 1 - 2 tab PO Q4H PRN PRN 3 Days 11/02/17 [[place] 5/325] #12 tab Labetalol [Trandate (Beta Stefanie)] 400 mg PO BID #120 tab 06/16/18 hydroCHLOROthiazide 12.5 mg PO DAILY #30 cap 06/16/18 [Hydrochlorothiazide] Diazepam [Valium] 2.5 mg PO PRN PRN 06/22/18 Insulin Detemir [Levemir FlexPen] 10 units SQ QHS 06/22/18 Insulin Detemir [Levemir FlexPen] 17 units SQ DAILY 06/22/18 Lidocaine [Lidoderm Patch] 1 patch TOPICAL DAILY 06/22/18 Nitroglycerin [Nitrostat] 0.4 mg SUBLINGUAL Q5M PRN 06/22/18 Past Medical History (Chronic Problems): Chronic Problems (Last Reviewed 06/21/18 @ 16:01 by Chika Matute) Anxiety (Chronic) Chronic renal failure, stage 3 (moderate) (Chronic) Hyperlipidemia (Chronic) On statin without side effect. Enc fax seed oil capsules. Hypertension (Chronic) Initial BP elevated. Rechecked 136/80 Enc to continue to monitor diet, weight, exercise. Diabetes mellitus (Chronic) Control has improved. A1c down to 7.3 Doing fairly well with diet. Exercise has started to increase. Eating occ snack. Hepatitis C (Chronic) Angina pectoris (Chronic) Surgical History: hysterectomy - *Family History Maternal Family History: Family History (Last Reviewed 06/21/18 @ 16:01 by Chika Matute) Mother Arthritis Father Arthritis History Items: Heart Disease Smoking Status: Former smoker Tobacco Use: Cigarettes Alcohol: None Drugs: None Review of Systems - Review of Systems General: Denies: Fever, Night Sweats, Fatigue HEENT: Denies: Vision Change Cardiovascular: Reports: Chest Discomfort at Rest. Denies: Chest Discomfort, Shortness of Breath, Orthopnea, PND, Peripheral Edema, Palpitations, Lightheadedness, Dizziness, Near Syncope, Syncope Respiratory: Denies: Cough, Sputum Production, Hemoptysis Gastrointestinal: Denies: Indigestion, Hematemesis, Hematochezia, Melena Genitourinary: Denies: Dysuria, Hematuria Muscoloskeletal: Denies: Myalgias Skin: Denies: Rash Neurological: Denies: Dizziness Psychiatric: Reports: Anxiety Endocrine: Denies: Unexplained Weight Loss Hematologic/ Lymphatic: Denies: Anemia Subjectve: Pleasant lady in no apparent distress Objective: Vital Signs Temp Pulse Resp BP Pulse Ox 97.7 F L 79 18 161/73 H 96 06/22/18 16:50 06/22/18 16:50 06/22/18 16:50 06/22/18 16:50 06/22/18 16:50 Oxygen Delivery Method Room Air Weight: 182 lb 1.629 oz Body Mass Index (BMI) 34.4 General: Awake, Alert, Oriented x 3 HEENT: PERRL, EOMI, Sclera Non Icteric Neck: Supple, Good ROM, No Lymph Node Enlargement Lungs: Clear to auscultation Cardiovascular: Regular Rhythm, Normal S1, Normal S2, No Murmurs, No Rubs, No Gallops Vascular: No Carotid Bruits, Normal Femoral Pulses, Normal Radial Pulses, Normal Dorsalis Pedal Pulse, Normal Posterior Tibial Pulses Abdomen: Bowel Sounds Present, Soft, Non Tender, No HSM, No Organomegaly Extremities: No Cyanosis, No Clubbing, No edema Skin: No Rashes Lymphatic: No Lymph Node Enlargement Neurological: No Focal Motor or Sensory Deficit Psych/Mental Status: Appropriate 06/22/18 13:15: WBC 8.3, RBC 4.61, Hgb 11.8 L, Hct 37.9, MCV 82.2, MCH 25.6 L, MCHC 31.1 L, RDW 14.7 H, RDW Differential 43.8, Plt Count 161, MPV 10.5, Immature Gran % (Auto) 0.200, Neut % (Auto) 59.8, Lymph % (Auto) 30.5, [place] % (Auto) 6.1, Eos % (Auto) 2.6, Baso % (Auto) 0.8, Absolute Neuts (auto) 5.0, Total Counted Not Reportable 06/22/18 13:15: Sodium 144, Potassium 4.4, Chloride 109 H, Carbon Dioxide 29.0, Anion Gap 6, BUN 21 H, Creatinine 1.10 H, Est GFR (MDRD) Af Amer 63, Est GFR (MDRD) Non-Af 52 L, BUN/Creatinine Ratio 19.1, Glucose 137 H, Calcium 8.8, Troponin I 0.137 H 06/22/18 13:15: B-Natriuretic Peptide 272.7 H Rhythm: EKG: ECHO: Stress Test: Cardiac Cath: PCI: CT Surgery: Holter monitor: EPS: PPM: CXR: Chest CT Scan: Assessment/Plan 1. Chest pain * Patient presents with chest pain which is somewhat atypical. She has recently had a normal stress test. My recommendation at this time in view of her presentation and her EKG changes will be to proceed with a left heart catheterization. The risk benefits and alternatives have been explained to her she understands and agrees to proceed. * 2. Hypertension * Her blood pressure appears to be rather uncontrolled. I would recommend that we optimize her blood pressure continuing her beta-stefanie * Norvasc 10 mg a day * Increase hydrochlorothiazide to 25 mg a day * Continue lisinopril 20 mg twice a day * Close follow-up by her primary physician * 3. Diastolic heart failure * She does have a history of diastolic heart failure and she would need some diuretics in addition to the current medications which have been prescribed * * Thank you for allowing me to participate in the care of your patient. Please don't hesitate to call if any issues arise
--- NOTE | 2018-06-22 17:32 | EKG12_ITS ---
Test Reason : CP ADMISSION Blood Pressure : / mmHG Vent. Rate : 076 BPM Atrial Rate : 076 BPM P-R Int : 172 ms QRS Dur : 080 ms QT Int : 400 ms P-R-T Axes : 050 -12 138 degrees QTc Int : 450 ms Normal sinus rhythm T wave abnormality, consider lateral ischemia Abnormal ECG Confirmed by BRIDGET GUADALUPE, LUIZ ([id number]), technical editor JAMES MULLEN ([id number]) on 06/26/2018 7:49:51 AM Referred By: DEANNA Confirmed By:LUIZ GILL MD
[2018-06-22] MEDS: Clopidogrel Bisulfate 300 MG Tablet PO (18:38)
[2018-06-22] MEDS: HYDROcodone Bitartrate/Apap 5/325 Tablet PO (19:36)
[2018-06-22] MEDS: Atorvastatin Calcium 10 MG Tablet PO (22:20)
[2018-06-22] MEDS: Lisinopril 20 MG Tablet PO (22:20)
[2018-06-22] MEDS: Labetalol 200 MG Tablet 400 MG PO (22:20)
[2018-06-22 22:40] LABS: Bedside Glucose 210 mg/dL (70-110)
[2018-06-23] VITALS (43 sets, daily range): BP systolic 112–203; BP diastolic 24–104; PULSE 63–75; RESP 13–26; TEMP 36.6–36.9; O2SAT 15–100
[2018-06-23] MEDS: HYDROcodone Bitartrate/Apap 5/325 Tablet PO ×2 (04:58→20:29)
[2018-06-23 05:37] LABS: Absolute Lymphocyte Count 2.29 X10^3/ul (0.83-4.51); Absolute Neutrophil Count 3.7 X10^3/uL (2.0-7.7); Basophil# 0.04 X10^3/uL; Basophil% 0.6 % (0-1); Eosinophil# 0.21 X10^3/uL; Hematocrit 35.4 % (37-47); Lymphocyte # 2.29 X10^3/ul (4.0); Lymphocyte % 33.2 % (19-41); Mean Corp Hgb Conc 31.1 g/gl (32-36); Mean Corpuscular Hgb 25.5 pg (27.0-32.0); Mean Corpuscular Volume 82.1 fL (81-99); Mean Platelet Vol. 11.1 fl (6.2-12.0); Monocyte# 0.63 X10^3/uL; Monocyte% 9.1 % (0-10); Neutrophil # 3.71 X10^3/uL (2.7-7.7); Platelet Count 162 K/mm3 (150-450); Prothrombin Time (Protime)PT. 13.2 SECONDS (11.7-14.9); RBC Distribution Width CV 14.7 % (11.6-14.6); RBC Distribution Width SD 43.9 fl (35.1-43.9); Red Blood Count 4.31 M/mm3 (4.2-5.4); White Blood Count 6.9 K/mm3 (4.4-11.0)
[2018-06-23 05:38] LABS: Partial Thromboplast Time 27.9 Seconds (24.1-36.2)
[2018-06-23 05:41] LABS: Anion Gap 7 (5-15); BUN 23 mg/dL (7-18); BUN/Creat Ratio 16.9 RATIO (10-20); Calcium,Total 8.2 mg/dL (8.5-10.1); Chloride 108 mmol/L (98-107); Creatinine, Serum 1.36 mg/dL (0.55-1.02); EST Glomerular Filtration Rate 41 mL/min (>60); Est Glom Filt Rate - Afr Amer 50 mL/min (>60); Estimated Creatinine Clearance 29.87 ml/min; Glucose 178 mg/dL (74-106); Potassium 4.2 mmol/L (3.5-5.1); Sodium Level 143 mmol/L (136-145)
[2018-06-23] MEDS: Labetalol 200 MG Tablet 400 MG PO ×2 (05:41→21:43)
[2018-06-23] MEDS: amLODIPine 10 MG Tablet PO (05:41)
[2018-06-23] MEDS: Clopidogrel Bisulfate 75 MG Tablet PO (05:41)
[2018-06-23] MEDS: Lisinopril 20 MG Tablet PO ×3 (05:41→21:43)
[2018-06-23 05:43] LABS: POSITIVE COUNT NO; POSITIVE DIFFERENTIAL NO; POSITIVE MORPHOLOGY NO
--- NOTE | 2018-06-23 05:55 | EKG12_ITS ---
Test Reason : AM Blood Pressure : / mmHG Vent. Rate : 067 BPM Atrial Rate : 067 BPM P-R Int : 186 ms QRS Dur : 080 ms QT Int : 436 ms P-R-T Axes : 053 -16 128 degrees QTc Int : 460 ms Normal sinus rhythm T wave abnormality, consider lateral ischemia Abnormal ECG When compared with ECG of 22-JUN-2018 17:42, MANUAL COMPARISON REQUIRED, DATA IS UNCONFIRMED Confirmed by BRIDGET GUADALUPE, LUIZ ([id number]), editor book JAMES MULLEN ([id number]) on 06/26/2018 7:48:27 AM Referred By: DEANNA Confirmed By:LUIZ GILL MD
[2018-06-23 06:51] LABS: Bedside Glucose 203 mg/dL (70-110)
--- NOTE | 2018-06-23 07:50 | PCM.PN.CARD ---
Subjectve: Patient seen and evaluated Objective: Vital Signs Temp Pulse Resp BP Pulse Ox 98.3 F 70 18 176/70 H 97 06/23/18 05:40 06/23/18 05:40 06/23/18 05:40 06/23/18 05:40 06/23/18 05:40 Oxygen Delivery Method Room Air Weight: 182 lb 1.629 oz Body Mass Index (BMI) 34.4 Intake and Output for Last 24 Hours 06/21/18 06/22/18 06/23/18 23:59 23:59 23:59 Intake Total 240 / 240 120 / 120 Balance 240 / 240 120 / 120 General: Awake, Alert, Oriented x 3 HEENT: PERRL, EOMI, Sclera Non Icteric Neck: Supple, Good ROM, No Lymph Node Enlargement Lungs: Clear to auscultation Cardiovascular: Regular Rhythm, Normal S1, Normal S2, No Murmurs, No Rubs, No Gallops Vascular: No Carotid Bruits, Normal Femoral Pulses, Normal Radial Pulses, Normal Dorsalis Pedal Pulse, Normal Posterior Tibial Pulses Abdomen: Bowel Sounds Present, Soft, Non Tender, No HSM, No Organomegaly Extremities: No Cyanosis, No Clubbing, No edema Neurological: No Focal Motor or Sensory Deficit 06/22/18 13:15: WBC 8.3, RBC 4.61, Hgb 11.8 L, Hct 37.9, MCV 82.2, MCH 25.6 L, MCHC 31.1 L, RDW 14.7 H, RDW Differential 43.8, Plt Count 161, MPV 10.5, Immature Gran % (Auto) 0.200, Neut % (Auto) 59.8, Lymph % (Auto) 30.5, [place] % (Auto) 6.1, Eos % (Auto) 2.6, Baso % (Auto) 0.8, Absolute Neuts (auto) 5.0, Total Counted Not Reportable 06/22/18 13:15: Sodium 144, Potassium 4.4, Chloride 109 H, Carbon Dioxide 29.0, Anion Gap 6, BUN 21 H, Creatinine 1.10 H, Est GFR (MDRD) Af Amer 63, Est GFR (MDRD) Non-Af 52 L, BUN/Creatinine Ratio 19.1, Glucose 137 H, Calcium 8.8, Troponin I 0.137 H 06/22/18 13:15: B-Natriuretic Peptide 272.7 H 06/22/18 19:00: Troponin I 0.103 H 06/22/18 21:20: Troponin I 0.094 H 06/23/18 05:10: WBC 6.9, RBC 4.31, Hgb 11.0 L, Hct 35.4 L, MCV 82.1, MCH 25.5 L, MCHC 31.1 L, RDW 14.7 H, RDW Differential 43.9, Plt Count 162, MPV 11.1, Immature Gran % (Auto) 0.100, Neut % (Auto) 54.0, Lymph % (Auto) 33.2, [place] % (Auto) 9.1, Eos % (Auto) 3.0, Baso % (Auto) 0.6, Absolute Neuts (auto) 3.7, Total Counted Not Reportable 06/23/18 05:10: PT 13.2, INR 1.0, APTT 27.9 06/23/18 05:10: Sodium 143, Potassium 4.2, Chloride 108 H, Carbon Dioxide 28.0, Anion Gap 7, BUN 23 H, Creatinine 1.36 H, Est GFR (MDRD) Af Amer 50 L, Est GFR (MDRD) Non-Af 41 L, BUN/Creatinine Ratio 16.9, Glucose 178 H, Calcium 8.2 L Rhythm: EKG: ECHO: Stress Test: Cardiac Cath: PCI: CT Surgery: Holter monitor: EPS: PPM: CXR: Chest CT Scan: Medical Necessity - Tobacco Use Smoking Status: Former smoker Tobacco Use: Cigarettes Assessment/Plan 1. Chest pain Patient presents with chest pain which is somewhat atypical. She has recently had a normal stress test. She underwent a cardiac catheterization today which demonstrated normal left main coronary Left anterior descending artery with moderate 60-75% stenosis Left circumflex artery with moderate mid segment disease Codominant right coronary artery with proximal 60% stenosis Preserved left ventricular systolic function It appears that the patient may have had balanced ischemia based on the last stress test. However with the moderately severe disease noted in the left anterior descending artery would recommend angioplasty and stenting of the above vessel. 2. Hypertension Her blood pressure appears to be rather uncontrolled. I would recommend that we optimize her blood pressure continuing her beta-ramón Norvasc 10 mg a day Increase hydrochlorothiazide to 25 mg a day Continue lisinopril 20 mg twice a day Close follow-up by her primary physician 3. Diastolic heart failure She does have a history of diastolic heart failure and she would need some diuretics in addition to the current medications which have been prescribed Thank you for allowing me to participate in the care of your patient. Please don't hesitate to call if any issues arise
--- NOTE | 2018-06-23 07:55 | PN.CARD_ITS ---
Subjectve: Patient seen and evaluated Objective: Vital Signs Temp Pulse Resp BP Pulse Ox 98.3 F 70 18 176/70 H 97 06/23/18 05:40 06/23/18 05:40 06/23/18 05:40 06/23/18 05:40 06/23/18 05:40 Oxygen Delivery Method Room Air Weight: 182 lb 1.629 oz Body Mass Index (BMI) 34.4 Intake and Output for Last 24 Hours 06/21/18 06/22/18 06/23/18 23:59 23:59 23:59 Intake Total 240 / 240 120 / 120 Balance 240 / 240 120 / 120 General: Awake, Alert, Oriented x 3 HEENT: PERRL, EOMI, Sclera Non Icteric Neck: Supple, Good ROM, No Lymph Node Enlargement Lungs: Clear to auscultation Cardiovascular: Regular Rhythm, Normal S1, Normal S2, No Murmurs, No Rubs, No Gallops Vascular: No Carotid Bruits, Normal Femoral Pulses, Normal Radial Pulses, Normal Dorsalis Pedal Pulse, Normal Posterior Tibial Pulses Abdomen: Bowel Sounds Present, Soft, Non Tender, No HSM, No Organomegaly Extremities: No Cyanosis, No Clubbing, No edema Neurological: No Focal Motor or Sensory Deficit 06/22/18 13:15: WBC 8.3, RBC 4.61, Hgb 11.8 L, Hct 37.9, MCV 82.2, MCH 25.6 L, MCHC 31.1 L, RDW 14.7 H, RDW Differential 43.8, Plt Count 161, MPV 10.5, Immature Gran % (Auto) 0.200, Neut % (Auto) 59.8, Lymph % (Auto) 30.5, [place] % (Auto) 6.1, Eos % (Auto) 2.6, Baso % (Auto) 0.8, Absolute Neuts (auto) 5.0, Total Counted Not Reportable 06/22/18 13:15: Sodium 144, Potassium 4.4, Chloride 109 H, Carbon Dioxide 29.0, Anion Gap 6, BUN 21 H, Creatinine 1.10 H, Est GFR (MDRD) Af Amer 63, Est GFR ( MDRD) Non-Af 52 L, BUN/Creatinine Ratio 19.1, Glucose 137 H, Calcium 8.8, Troponin I 0.137 H 06/22/18 13:15: B-Natriuretic Peptide 272.7 H 06/22/18 19:00: Troponin I 0.103 H 06/22/18 21:20: Troponin I 0.094 H 06/23/18 05:10: WBC 6.9, RBC 4.31, Hgb 11.0 L, Hct 35.4 L, MCV 82.1, MCH 25.5 L, MCHC 31.1 L, RDW 14.7 H, RDW Differential 43.9, Plt Count 162, MPV 11.1, Immature Gran % (Auto) 0.100, Neut % (Auto) 54.0, Lymph % (Auto) 33.2, [place] % (Auto) 9.1, Eos % (Auto) 3.0, Baso % (Auto) 0.6, Absolute Neuts (auto) 3.7, Total Counted Not Reportable 06/23/18 05:10: PT 13.2, INR 1.0, APTT 27.9 06/23/18 05:10: Sodium 143, Potassium 4.2, Chloride 108 H, Carbon Dioxide 28.0, Anion Gap 7, BUN 23 H, Creatinine 1.36 H, Est GFR (MDRD) Af Amer 50 L, Est GFR (MDRD) Non-Af 41 L, BUN/Creatinine Ratio 16.9, Glucose 178 H, Calcium 8.2 L Rhythm: EKG: ECHO: Stress Test: Cardiac Cath: PCI: CT Surgery: Holter monitor: EPS: PPM: CXR: Chest CT Scan: Medical Necessity - Tobacco Use Smoking Status: Former smoker Tobacco Use: Cigarettes Assessment/Plan 1. Chest pain * Patient presents with chest pain which is somewhat atypical. She has recently had a normal stress test. * She underwent a cardiac catheterization today which demonstrated normal left main coronary * Left anterior descending artery with moderate 60-75% stenosis * Left circumflex artery with moderate mid segment disease * Codominant right coronary artery with proximal 60% stenosis * Preserved left ventricular systolic function * It appears that the patient may have had balanced ischemia based on the last stress test. However with the moderately severe disease noted in the left a nterior descending artery would recommend angioplasty and stenting of the above vessel. 2. Hypertension * Her blood pressure appears to be rather uncontrolled. I would recommend that we optimize her blood pressure continuing her beta-ramón * Norvasc 10 mg a day * Increase hydrochlorothiazide to 25 mg a day * Continue lisinopril 20 mg twice a day * Close follow-up by her primary physician * 3. Diastolic heart failure * She does have a history of diastolic heart failure and she would need some diuretics in addition to the current medications which have been prescribed * * Thank you for allowing me to participate in the care of your patient. Please don't hesitate to call if any issues arise
--- NOTE | 2018-06-23 08:07 | CL.D_ITS ---
Patient Name: NIKUNJ LORD Study Date: 06/23/2018 Performing: Sylvain Mcdowell MD Ht: 61.02 inches 155 cm : 1950 Wt: 182.98 lbs 83 kg Age: 67 Gender: female BSA: 1.82 PROCEDURE(S) PERFORMED [id number]/LV [id number] W OR WO PTCA, SINGLE CORONARY ARTERY CLINICAL PROFILE AND INDICATIONS Heart Failure: None Stress/Imaging Stress Test w/SPECT MPI: Yes Result: NegativeStress Test with SPECT MPI: Negative CAD Presentations: Unstable angina. CONCLUSIONS 2 vessel CAD with LAD and RCA with 75 % stenosis RECOMMENDATIONS Referred for immediate PCI DESCRIPTION OF PROCEDURE The patient arrived to the procedure lab. The risks and benefits of the procedure as well as a full d escription of our services here and current unavailability of surgical backup were fully explained to the patient and/or their significant other prior to the catheterization. The Timeout was completed, verifying the correct patient and procedure. The patient's procedural site was prepped and draped in the usual fashion. Local anesthetic was given subcutaneously to right radial region with Lidocaine 2% . Using a modified Seldinger technique, arterial access was obtained via the right radial artery, a 6 Fr sheath was inserted. Right Coronary Artery selective angiography was then performed in multiple v iews using a 5 Fr. 4.0 Norris catheter. Left Coronary Artery selective angiography was performed in mu ltiple views using a 5 Fr. 4.0 Norris catheter. Left Ventriculography was performed in PIEDRA projection using a 5 Fr. Pigtail catheter. LV to AO pullback pressures were then recorded.The arterial sheath was pulled and a TR Band was applied for hemostasis w/ 12ml air CORONARY ANGIOGRAPHY DOMINANCE: Co- Dominant LEFT HEART ASSESSMENT Left Ventricular Ejection Fraction: by LV Gram 65 % Normal LV wall motion Normal Left Ventricular systolic function LEFT MAIN: Angiographically normal LEFT ANTERIOR DECENDING ARTERY: PROX LAD: long 75 % Stenosis MID LAD: Mild luminal irregularities less than 30% CIRCUMFLEX ARTERY: MID CIRC: Mild luminal irregularities less than 30% OM 1: Ostial - 65 % Stenosis RIGHT CORONARY ARTERY: PROX RCA: 70 % Stenosis COMPLICATIONS No Complications PROCEDURE MEDICATIONS Versed 1 mg IV Fentanyl 50 mcg IV Oxygen: 2 L/min via nasal cannula Heparin diluted in 23cc Heparinized saline. Patient given 10cc IA of this solution. 06/23/2018 07:13 :40 Labetalol 20 mg 06/23/2018 07:24:56 Heparin 7000 unit(s) IV 06/23/2018 07:45:08 Heparin 1000 unit(s) IV 06/23/2018 08:07:22 Heparin 2000 unit(s) IV 06/23/2018 08:19:45 Nitro Tab 0.4 mg PO 06/23/2018 07:27:59 Nitro 200 mcg IC 06/23/2018 08:02:01 Nitro 200 mcg IC 06/23/2018 08:09:33 Nitro 400 mcg IC 06/23/2018 08:20:12 Verapamil 2.5mg, Ntg 100mcgs, 2000 units of Heparin diluted in 23cc Heparinized saline. Patient give n 10cc IA of this solution. 06/23/2018 07:13:40 SUMMARY OF HEMODYNAMIC DATA Time AIR REST ECG 06:52:42 AO 187/93 (128) SA 07:18:29 AO 208/101 (140) 07:22:14 LV 185/24, 39 07:26:24 LV 183/24, 38 07:26:31 LV 190/24, 39 07:28:19 LVp 195/30, 44 07:28:39 AOp 191/81 (119) 07:28:44 AO 184/80 (114) 07:43:39 ECG 08:41:11 RM AIR REST 08:41:19 Signed By Sylvain Mcdowell MD On 06/23/2018 08:43:32 Sylvain Mcdowell MD
--- NOTE | 2018-06-23 08:31 | EKG12_ITS ---
Test Reason : POST PCI Blood Pressure : / mmHG Vent. Rate : 063 BPM Atrial Rate : 063 BPM P-R Int : 184 ms QRS Dur : 084 ms QT Int : 420 ms P-R-T Axes : 061 -17 143 degrees QTc Int : 429 ms Normal sinus rhythm T wave abnormality, consider lateral ischemia Abnormal ECG When compared with ECG of 23-JUN-2018 04:13, MANUAL COMPARISON REQUIRED, DATA IS UNCONFIRMED Confirmed by BRIDGET GUADALUPE, LUIZ ([id number]), editorial clerk JAMES MULLEN ([id number]) on 06/26/2018 7:58:25 AM Referred By: A NBA Confirmed By:LUIZ GILL MD
--- NOTE | 2018-06-23 08:43 | CL.I_ITS ---
Patient Name: NIKUNJ LODR Study Date: 06/23/2018 Performing: Saul Fonseca MD Ht: 61.02 inches 155 cm : 1950 Wt: 182.98 lbs 83 kg Age: 67 Gender: female BSA: 1.82 PROCEDURE(S) PERFORMED [id number] W OR WO PTCA, SINGLE CORONARY ARTERY CLINICAL PROFILE AND CO-MORBIDITIES Heart Failure: None Stress/Imaging Stress Test w/SPECT MPI: Yes Result: Negative Stress Test with SPECT MPI: Negative CAD Presentations: Unstable angina. CONCLUSIONS Successful SIVAN prox LAD using Synergy 3.0x38 mm RECOMMENDATIONS ASA Indefinitley Plavix for at least 12 months Follow up with Dr. Mcdowell INTERVENTION INFORMATION LESION SITE: LAD (Proximal) Lesion Complexity: High/C, culprit lesion: Yes Pre Stenosis: 80 % Pre intervention JULITA flow: 3 PROCEDURE: Drug Eluting Stent with post dilatation Post Stenosis: 0 % Post intervention JULITA flow: 3 Lesion Devices: Terumo .014 Runthrough Extra Floppy 180cm straight Cordis 6 Fr XB3.0 100cm Guide Catheter Barry Sci Synergy MR SIVAN 3.00x38 Barry Sci NC EMERGE MR 3.00x30 BALLOON Lesion Devices: Cordis 6 Fr JR4 100cm Guide Catheter Cordis 6 Fr 3DRC 100cm Guide Catheter COMPLICATIONS No Complications PROCEDURE MEDICATIONS Versed 1 mg IV Fentanyl 50 mcg IV Oxygen: 2 L/min via nasal cannula Heparin diluted in 23cc Heparinized saline. Patient given 10cc IA of this solution. 06/23/2018 07:13 :40 Labetalol 20 mg 06/23/2018 07:24:56 Heparin 7000 unit(s) IV 06/23/2018 07:45:08 Heparin 1000 unit(s) IV 06/23/2018 08:07:22 Heparin 2000 unit(s) IV 06/23/2018 08:19:45 Nitro Tab 0.4 mg PO 06/23/2018 07:27:59 Nitro 200 mcg IC 06/23/2018 08:02:01 Nitro 200 mcg IC 06/23/2018 08:09:33 Nitro 400 mcg IC 06/23/2018 08:20:12 Verapamil 2.5mg, Ntg 100mcgs, 2000 units of Heparin diluted in 23cc Heparinized saline. Patient give n 10cc IA of this solution. 06/23/2018 07:13:40 SUMMARY OF HEMODYNAMIC DATA Time AIR REST ECG 06:52:42 AO 187/93 (128) SA 07:18:29 AO 208/101 (140) 07:22:14 LV 185/24, 39 07:26:24 LV 183/24, 38 07:26:31 LV 190/24, 39 07:28:19 LVp 195/30, 44 07:28:39 AOp 191/81 (119) 07:28:44 AO 184/80 (114) 07:43:39 ECG 08:41:11 08:41:19 Signed By Saul Fonseca MD On 06/23/2018 08:41:34 Saul Fonseca MD
[2018-06-23] MEDS: 0.9% Normal Saline 1,000 ML 100 ML IV (09:00)
--- NOTE | 2018-06-23 10:00 | EKG12_ITS ---
Test Reason : CHEST PAIN Blood Pressure : / mmHG Vent. Rate : 071 BPM Atrial Rate : 071 BPM P-R Int : 162 ms QRS Dur : 084 ms QT Int : 410 ms P-R-T Axes : 044 002 130 degrees QTc Int : 445 ms Normal sinus rhythm T wave abnormality, consider lateral ischemia Abnormal ECG When compared with ECG of 23-JUN-2018 08:45, MANUAL COMPARISON REQUIRED, DATA IS UNCONFIRMED Confirmed by BRIDGET GUADALUPE, LUIZ ([id number]), supervising editor news reel JAMES MULLEN ([id number]) on 06/28/2018 4:04:15 PM Referred By: NBA Confirmed By:LUIZ GILL MD
--- NOTE | 2018-06-23 10:21 | CASEMGMT ---
As per admitting RN, pt has LW/POA forms but is not able to bring them in. LEIGH ANN Up, [employer]
--- NOTE | 2018-06-23 10:42 | CRPHASE1 ---
Patient Data/Charges Phase II Referral:: [facility] Start Phase II:: FOLLOWING CARDIOLOGY OFFICE VISIT Risk Factors/Lifestyle Smoking Status: Former smoker Hx Hypertension: Yes Hx Diabetes Mellitus Type 2: Yes Hx Metabolic Disorders: Yes Post-Menopausal: Yes Stress: Home/Family Risk Factor for Sedentary Lifestyle: Moderate Risk Family History: Family History (Last Reviewed 06/21/18 @ 16:01 by Chika Matute) Mother Arthritis Father Arthritis Past Cardiac Illness: Other - HEPATITIS Phase I Education Given On:: [place], Nutrition, Antiplatelet medication, Diabetes - Type II Issues Affecting Care:: None Knowledge of Condition:: Yes Learning Preferences: Verbal, Written Hospital Course Presenting Symptoms:: CHEST PAIN Medical/Surgical History Diabetes Type II:: Yes Hypertension:: Yes Discharge/Home/Social Eval Discharge Disposition: Home
--- NOTE | 2018-06-23 10:44 | CRPH1.INSTRU ---
General Education CAD and cardiac anatomy and function:: Patient communicates acknowledgment Explanation of diagnoses and procedures:: Patient communicates acknowledgment Sign/Symptoms of SD:: Patient communicates acknowledgment Antiplatelet therapy: Patient communicates acknowledgment Proper use of NTG-SL: Not instructed Emergency procedures and activation of EMS: Patient communicates acknowledgment Compliance of all prescribed medications: Patient communicates acknowledgment Smoking Recommendations Include:: Previous smoker; encourage continued cessation Nicotine/Smoking Response Code:: Patient communicates acknowledgment Dyslipidemia Patient Dyslipidemia Risk Factors Are:: Total Cholesterol, Triglycerides, HDL, LDL Recommendations Include:: Lipid profile provided, Reviewed NCEP/ATP guidelines, Therapeutic Lifestyle Change dietary guidelines Dyslipidemia Response Code:: Patient communicates acknowledgment Overweight/Obesity Patient Overweight/Obesity Risk Factors Are:: Obesity - > or = 30 Recommendations Include:: Weight loss of 5-10%, Reduced calorie diet, Exercise 5-7 times/week Overweight/Obesity:: Patient communicates acknowledgment Hypertension Recommendations Include:: BP <130/80 if diabetic, DASH dietary guidelines, Decrease/maintain normal body weight, Moderation of ETOH Hypertension:: Patient communicates acknowledgment Heart Disease Heart Disease Response Code:: Patient communicates acknowledgment Diabetes Patient Diabetes Risk Factors Are:: Elevated blood sugars Date of HgbA1c:: 06/23/ - 9.5 Recommendations Include:: Maintain fasting blood sugars 70-110 md/dL, Maintain HgbA1c of 6% or less, Monitor blood sugar as prescribed, Diabetic dietary guidelines, Decrease/maintain body weight Diabetes:: Patient communicates acknowledgment Metabolic Syndrome Patient Metabolic Syndrome Risk Factors Are [3 of 5]:: Fasting blood sugar > 100 mg/dL, Waist circumference > 35 [female] or 40 [male], Hypertension Recommendations Include:: Reinforce compliance to risk factor modifications, Patient is diabetic, Encouraged follow-up with Primary Care Physician Metabolic Syndrome Response Code:: Patient communicates acknowledgment Sedentary Patient Sedentary Risk Factors Are:: Lack of regular exercise Recommendations Include:: Aerobic exercise 5-7 times/week for 20-30 minutes continuously, Benefits of regular exercise, Discussed home walking program, Monitored Outpatient Cardiac Rehab Sedentary Response Code:: Patient communicates acknowledgment Stress Recommendations Include:: Identification of stressors, and assessment of coping skills, Stress management techniques Stress Response Code:: Patient communicates acknowledgment
[2018-06-23 10:50] LABS: ACT Activated Clotting Time 263 sec (74-137)
[2018-06-23 10:50] LABS: ACT Activated Clotting Time 235 sec (74-137)
[2018-06-23 11:15] LABS: Bedside Glucose 225 mg/dL (70-110)
[2018-06-23] MEDS: Insulin Lispro 100 UNIT/ML INSULN.PEN 10 UNIT SC (11:32)
[2018-06-23] MEDS: Lidocaine 5% Patch 1 PATCH TOPICAL (11:33)
[2018-06-23] MEDS: hydroCHLOROthiazide 12.5mg 25 MG PO (11:34)
--- NOTE | 2018-06-23 11:59 | PN_ITS ---
<Alphonso Fabian - Last Filed: 06/23/18 11:55> Patient Problems: Active and Suspected Problems (Last Reviewed 06/21/18 @ 16:01 by Chika Matute) ACS (acute coronary syndrome) (Acute) Hypertensive urgency (Acute) Subjective: Seen post cath/stent placement. No CP. No LH. BP high, pt complains when her BP is up her vision gets blurry, but currently she has no blurry vision fortunately. She has a mild Right frontal headache. No N/V. - Physical Exam General: Alert, Oriented x3, Cooperative HEENT: Atraumatic, PERRLA, EOMI, Normocephalic Neck: Supple, No JVD, Negative Carotid Bruits Lungs: Clear to auscultation, Normal air movement Cardiovascular: Regular rate, No murmurs Abdomen: Bowel Sounds Present, Soft, Non Tender Extremities: No edema, Capillary Refill Less than 3 Seconds Skin: No rashes, No breakdown Musculoskeletal: No Tenderness to Palpation of Joints or Extremities Neurological: Cranial nerves II-XII grossly intact Psych/Mental Status: Normal Affect, Appropriate, Alert and oriented to time, place, person, mood and affect Vital Signs Temp Pulse Resp BP Pulse Ox 98.3 F 64 15 143/80 H 97 06/23/18 05:40 06/23/18 11:00 06/23/18 11:00 06/23/18 11:00 06/23/18 11:00 Oxygen Flow Rate (L/min) 2 Oxygen Delivery Method Room Air Weight: 182 lb 1.629 oz Body Mass Index (BMI) 34.4 Intake and Output for Last 24 Hours 06/21/18 06/22/18 06/23/18 23:59 23:59 23:59 Intake Total 240 / 240 120 / 120 Balance 240 / 240 120 / 120 Laboratory Tests Past 24 Hrs 06/22/18 06/22/18 06/22/18 13:15 13:15 13:15 WBC 8.3 RBC 4.61 Hgb 11.8 L Hct 37.9 MCV 82.2 MCH 25.6 L MCHC 31.1 L RDW 14.7 H RDW Differential 43.8 Plt Count 161 MPV 10.5 Immature Gran % (Auto) 0.200 Neut % (Auto) 59.8 Lymph % (Auto) 30.5 Canadian % (Auto) 6.1 Eos % (Auto) 2.6 Baso % (Auto) 0.8 Absolute Neuts (auto) 5.0 Absolute Lymphs (auto) 2.54 Total Counted Not Reportable PT INR APTT Activated Clotting Time Sodium 144 Potassium 4.4 Chloride 109 H Carbon Dioxide 29.0 Anion Gap 6 BUN 21 H Creatinine 1.10 H Estim Creat Clear Calc 36.94 Est GFR (MDRD) Af Amer 63 Est GFR (MDRD) Non-Af 52 L BUN/Creatinine Ratio 19.1 Glucose 137 H Calcium 8.8 Troponin I 0.137 H B-Natriuretic Peptide 272.7 H 06/22/18 06/22/18 06/23/18 19:00 21:20 05:10 WBC 6.9 RBC 4.31 Hgb 11.0 L Hct 35.4 L MCV 82.1 MCH 25.5 L MCHC 31.1 L RDW 14.7 H RDW Differential 43.9 Plt Count 162 MPV 11.1 Immature Gran % (Auto) 0.100 Neut % (Auto) 54.0 Lymph % (Auto) 33.2 Canadian % (Auto) 9.1 Eos % (Auto) 3.0 Baso % (Auto) 0.6 Absolute Neuts (auto) 3.7 Absolute Lymphs (auto) 2.29 Total Counted Not Reportable PT INR APTT Activated Clotting Time Sodium Potassium Chloride Carbon Dioxide Anion Gap BUN Creatinine Estim Creat Clear Calc Est GFR (MDRD) Af Amer Est GFR (MDRD) Non-Af BUN/Creatinine Ratio Glucose Calcium Troponin I 0.103 H 0.094 H B-Natriuretic Peptide 06/23/18 06/23/18 06/23/18 05:10 05:10 07:55 WBC RBC Hgb Hct MCV MCH MCHC RDW RDW Differential Plt Count MPV Immature Gran % (Auto) Neut % (Auto) Lymph % (Auto) Canadian % (Auto) Eos % (Auto) Baso % (Auto) Absolute Neuts (auto) Absolute Lymphs (auto) Total Counted PT 13.2 INR 1.0 APTT 27.9 Activated Clotting Time 263 H Sodium 143 Potassium 4.2 Chloride 108 H Carbon Dioxide 28.0 Anion Gap 7 BUN 23 H Creatinine 1.36 H Estim Creat Clear Calc 29.87 Est GFR (MDRD) Af Amer 50 L Est GFR (MDRD) Non-Af 41 L BUN/Creatinine Ratio 16.9 Glucose 178 H Calcium 8.2 L Troponin I B-Natriuretic Peptide 06/23/18 08:16 WBC RBC Hgb Hct MCV MCH MCHC RDW RDW Differential Plt Count MPV Immature Gran % (Auto) Neut % (Auto) Lymph % (Auto) Canadian % (Auto) Eos % (Auto) Baso % (Auto) Absolute Neuts (auto) Absolute Lymphs (auto) Total Counted PT INR APTT Activated Clotting Time 235 H Sodium Potassium Chloride Carbon Dioxide Anion Gap BUN Creatinine Estim Creat Clear Calc Est GFR (MDRD) Af Amer Est GFR (MDRD) Non-Af BUN/Creatinine Ratio Glucose Calcium Troponin I B-Natriuretic Peptide POC Glucose 06/23/18 06/23/18 06/22/18 11:10 06:37 22:22 POC Glucose 225 H 203 H 210 H Medical Necessity - Tobacco Use Smoking Status: Former smoker Tobacco Use: Cigarettes Assessment/Plan All Active Problems (Last Reviewed 06/21/18 @ 16:01 by Chika Matute) Chest pain (Acute) ACS (acute coronary syndrome) (Acute) Hypertensive urgency (Acute) Cellulitis of buttock (Resolved) Diverticulitis large intestine (Resolved) 1. CP/NSTEMI - post cath and 2 stents placed. Continue asa/plavix/statin/estefani/imdur/hctz 2. DMt2 - continue insulin regiment. 3. HTN - remains elevated. mild farris. trend with additional agents. prn trandate. 4. HLD - statin 5. Chronic back pain - home meds DVT ppx: SCDs DC planning: possibly home tomorrow if stable overnight. This patient was seen by Alphonso Fabian PA-C under the supervision of Dr. Alstno. <Samina Alston E - Last Filed: 06/23/18 12:12> - Physical Exam Vital Signs Temp Pulse Resp BP Pulse Ox 98.3 F 66 15 181/74 H 96 06/23/18 05:40 06/23/18 11:30 06/23/18 11:30 06/23/18 11:30 06/23/18 11:30 Oxygen Flow Rate (L/min) 2 Oxygen Delivery Method Room Air Weight: 182 lb 1.629 oz Body Mass Index (BMI) 34.4 Intake and Output for Last 24 Hours 06/21/18 06/22/18 06/23/18 23:59 23:59 23:59 Intake Total 240 / 240 120 / 120 Balance 240 / 240 120 / 120 Laboratory Tests Past 24 Hrs 06/22/18 06/22/18 06/22/18 13:15 13:15 13:15 WBC 8.3 RBC 4.61 Hgb 11.8 L Hct 37.9 MCV 82.2 MCH 25.6 L MCHC 31.1 L RDW 14.7 H RDW Differential 43.8 Plt Count 161 MPV 10.5 Immature Gran % (Auto) 0.200 Neut % (Auto) 59.8 Lymph % (Auto) 30.5 Canadian % (Auto) 6.1 Eos % (Auto) 2.6 Baso % (Auto) 0.8 Absolute Neuts (auto) 5.0 Absolute Lymphs (auto) 2.54 Total Counted Not Reportable PT INR APTT Activated Clotting Time Sodium 144 Potassium 4.4 Chloride 109 H Carbon Dioxide 29.0 Anion Gap 6 BUN 21 H Creatinine 1.10 H Estim Creat Clear Calc 36.94 Est GFR (MDRD) Af Amer 63 Est GFR (MDRD) Non-Af 52 L BUN/Creatinine Ratio 19.1 Glucose 137 H Calcium 8.8 Troponin I 0.137 H B-Natriuretic Peptide 272.7 H 06/22/18 06/22/18 06/23/18 19:00 21:20 05:10 WBC 6.9 RBC 4.31 Hgb 11.0 L Hct 35.4 L MCV 82.1 MCH 25.5 L MCHC 31.1 L RDW 14.7 H RDW Differential 43.9 Plt Count 162 MPV 11.1 Immature Gran % (Auto) 0.100 Neut % (Auto) 54.0 Lymph % (Auto) 33.2 Canadian % (Auto) 9.1 Eos % (Auto) 3.0 Baso % (Auto) 0.6 Absolute Neuts (auto) 3.7 Absolute Lymphs (auto) 2.29 Total Counted Not Reportable PT INR APTT Activated Clotting Time Sodium Potassium Chloride Carbon Dioxide Anion Gap BUN Creatinine Estim Creat Clear Calc Est GFR (MDRD) Af Amer Est GFR (MDRD) Non-Af BUN/Creatinine Ratio Glucose Calcium Troponin I 0.103 H 0.094 H B-Natriuretic Peptide 06/23/18 06/23/18 06/23/18 05:10 05:10 07:55 WBC RBC Hgb Hct MCV MCH MCHC RDW RDW Differential Plt Count MPV Immature Gran % (Auto) Neut % (Auto) Lymph % (Auto) Canadian % (Auto) Eos % (Auto) Baso % (Auto) Absolute Neuts (auto) Absolute Lymphs (auto) Total Counted PT 13.2 INR 1.0 APTT 27.9 Activated Clotting Time 263 H Sodium 143 Potassium 4.2 Chloride 108 H Carbon Dioxide 28.0 Anion Gap 7 BUN 23 H Creatinine 1.36 H Estim Creat Clear Calc 29.87 Est GFR (MDRD) Af Amer 50 L Est GFR (MDRD) Non-Af 41 L BUN/Creatinine Ratio 16.9 Glucose 178 H Calcium 8.2 L Troponin I B-Natriuretic Peptide 06/23/18 08:16 WBC RBC Hgb Hct MCV MCH MCHC RDW RDW Differential Plt Count MPV Immature Gran % (Auto) Neut % (Auto) Lymph % (Auto) Canadian % (Auto) Eos % (Auto) Baso % (Auto) Absolute Neuts (auto) Absolute Lymphs (auto) Total Counted PT INR APTT Activated Clotting Time 235 H Sodium Potassium Chloride Carbon Dioxide Anion Gap BUN Creatinine Estim Creat Clear Calc Est GFR (MDRD) Af Amer Est GFR (MDRD) Non-Af BUN/Creatinine Ratio Glucose Calcium Troponin I B-Natriuretic Peptide POC Glucose 06/23/18 06/23/18 06/22/18 11:10 06:37 22:22 POC Glucose 225 H 203 H 210 H Assessment/Plan Hospitalist note: I am seeing this patient in conjunction with Alphonso Fabian. I independently seen and examined the patient. Progress note above , laboratory data and imaging studies reviewed and I concur with the above treatment plan. Patient seen and examined. She denied any more chest pressure or pain, denied shortness of breath. This morning, she underwent cardiac catheterization and she was found to have two-vessel disease with LAD and RCA with 75% stenosis, status post drug eluting stents placement. Blood pressure slightly elevated, other vital l signs are stable at this time. - Physical Exam General: Alert, Oriented x3, Cooperative, No apparent distress. HEENT: Atraumatic, PERRLA, EOMI. Neck: Supple, No JVD, Negative Carotid Bruits, Trachea Midline, Thyroid Normal. Lungs: Clear to auscultation, Normal air movement, No rhonchi, No wheeze, No rales. Cardiovascular: Regular rate, Regular Rhythm, Normal S1, Normal S2, PMI Normal. Abdomen: Bowel Sounds Present, Soft, Non Tender, Non-Distended, No Hepato- splenomegaly. Extremities: No clubbing, No cyanosis, No edema Skin: No rashes, No breakdown Neurological: Neuro grossly intact #1 Acute non-ST elevation OR: Status post cardiac catheterization, found to have two-vessel disease of the LAD and RCA, status post stenting. She is on aspirin, Plavix, statins, lisinopril and nitrates. Blood work was remarkable for creatinine of 1.26. Her troponins are trending down. Blood pressure is not well controlled. Cardiology on the case, plan to continue same treatment, monitor blood pressure. #2 other chronic medical problems: Stable, continue current medications as above. This note was generated with [employer] dictation software. It may contain incorrect words, spelling, and punctuation that were not noted in checking the note before signing. Code Visit Inpatient E&M: 04821 Subs Hosp L2
[2018-06-23] MEDS: Isosorbide Mononitrate 30 MG Tablet PO (12:16)
--- NOTE | 2018-06-23 13:10 | CASEMGMT ---
SW met with patient in room in regard to prior level of function and discharge plan. Pt;s primary care physician is Dr. Mckinley, uses [facility] for Medication. Pt's is POA, she is not able to bring the forms to the hospital at present however. Pt has Medicare, [employer], and has prescription coverage also. Pt lives home w/her in a mobile home, a few steps to enter. Pt was independent prior to admission, drives, helps her a lot. Pt is struggling w/housework. SW spoke w/pt about Passport, pt will not qualify for Medicaid however. Pt has no history of home health or alf stay. Pt plans to return home at discharge. Pt explains her goes to dialysis, and he uses the [facility]. Pt explains her just recently got out of [facility]. She states her was frustrated w/her as she was in the hospital. Pt's is used to pt caring for him, not for her to be sick herself. SW offered support. SW asked about other supports, she states everyone is in [place] and [place]. Pt also talked about having trouble getting words out at times, she hears and comprehends but struggles to speak at times. SW asked if she let her physician know, she states no. SW encouraged her to let her physician know. SW let RN know what pt said in regard to this. Home health needs not anticipated. SW spoke w/pt about Meals on Wheels, pt is agreeable to referral for [facility] Whe[facility] for both she and and . SW completed the [facility] referral and faxed it to [facility] for pt, let pt know. No further needs anticipated. LEIGH ANN Up, TONGUE CARRIER
--- NOTE | 2018-06-23 13:18 | CHAPLAIN ---
Type of Pastoral Visit _x__ Initial Visit ___ Follow-up Visit ___ On-call Visit ___ General Patient Visit ___ Spiritual Assessment ___ Family Conference ___ Bereavement ___ Rapid Response ___ Code Blue ___ Other (describe below) Pastoral Care Referral From _x__ Patient ___ Family ___ Nurse ___ Physician ___ School Teacher ___ Signal Maintainer ___ Other (describe below) Sacrament/Intervention ___ Active listening ___ Anointing ___ Jehovah'S Witness ___ Bereavement ___ Communion ___ Rosie exploration ___ ___ Life review _x__ Prayer ___ Reconciliation ___ Sacrament of Sick _x__ Supportive presence ___ Wedding ___ Other (describe below) Pastoral Comments
[2018-06-23 17:00] LABS: Bedside Glucose 97 mg/dL (70-110)
[2018-06-23] MEDS: Atorvastatin Calcium 10 MG Tablet PO (21:43)
[2018-06-23 21:46] LABS: Bedside Glucose 174 mg/dL (70-110)
[2018-06-24] VITALS (21 sets, daily range): BP systolic 106–195; BP diastolic 41–79; PULSE 62–70; RESP 11–22; TEMP 36.6–36.9; O2SAT 94–99
[2018-06-24 05:09] LABS: Hematocrit 32.1 % (37-47); Hemoglobin 10.1 g/dl (12.0-15.0); Mean Corp Hgb Conc 31.5 g/gl (32-36); Mean Corpuscular Hgb 25.6 pg (27.0-32.0); Mean Corpuscular Volume 81.5 fL (81-99); Mean Platelet Vol. 10.5 fl (6.2-12.0); Platelet Count 147 K/mm3 (150-450); RBC Distribution Width CV 14.6 % (11.6-14.6); RBC Distribution Width SD 43.8 fl (35.1-43.9); Red Blood Count 3.94 M/mm3 (4.2-5.4); White Blood Count 7.5 K/mm3 (4.4-11.0)
[2018-06-24 05:10] LABS: Scan Indicated on CBC? Y/N NO
[2018-06-24 05:23] LABS: Anion Gap 7 (5-15); BUN 27 mg/dL (7-18); BUN/Creat Ratio 18.4 RATIO (10-20); Calcium,Total 7.9 mg/dL (8.5-10.1); Chloride 107 mmol/L (98-107); Creatinine, Serum 1.47 mg/dL (0.55-1.02); EST Glomerular Filtration Rate 38 mL/min (>60); Est Glom Filt Rate - Afr Amer 45 mL/min (>60); Estimated Creatinine Clearance 27.64 ml/min; Glucose 165 mg/dL (74-106); Potassium 3.9 mmol/L (3.5-5.1); Sodium Level 142 mmol/L (136-145)
[2018-06-24] MEDS: cloNIDine HCl 0.1 MG Tablet PO (07:09)
[2018-06-24 07:11] LABS: Bedside Glucose 148 mg/dL (70-110)
[2018-06-24] MEDS: Aspirin E.C. 81 MG Tablet PO (07:58)
[2018-06-24] MEDS: hydroCHLOROthiazide 12.5mg 25 MG PO (07:59)
[2018-06-24] MEDS: Labetalol 200 MG Tablet 400 MG PO ×2 (08:00→21:24)
[2018-06-24] MEDS: Insulin Lispro 100 UNIT/ML INSULN.PEN 10 UNIT SC ×2 (08:02→11:01)
--- NOTE | 2018-06-24 08:30 | EKG12_ITS ---
Test Reason : AM Blood Pressure : / mmHG Vent. Rate : 066 BPM Atrial Rate : 066 BPM P-R Int : 190 ms QRS Dur : 080 ms QT Int : 448 ms P-R-T Axes : 053 -17 130 degrees QTc Int : 469 ms Normal sinus rhythm T wave abnormality, consider lateral ischemia Abnormal ECG Confirmed by BRIDGET GUADALUPE, LUIZ ([id number]), editorial cartoonist JAMES MULLEN ([id number]) on 06/28/2018 4:03:06 PM Referred By: DEANNA Confirmed By:LUIZ GLIL MD
[2018-06-24] MEDS: Lisinopril 20 MG Tablet PO ×2 (10:49→21:25)
[2018-06-24] MEDS: Isosorbide Mononitrate 30 MG Tablet PO (10:49)
[2018-06-24] MEDS: Lidocaine 5% Patch 1 PATCH TOPICAL (10:50)
[2018-06-24] MEDS: Clopidogrel Bisulfate 75 MG Tablet PO (10:50)
--- NOTE | 2018-06-24 11:08 | PCM.PN.CARD ---
Subjectve: Denies any complaints. Objective: Vital Signs Temp Pulse Resp BP Pulse Ox 98 F 66 17 140/60 H 98 06/24/18 11:00 06/24/18 11:00 06/24/18 11:00 06/24/18 11:00 06/24/18 11:00 Oxygen Flow Rate (L/min) 2 Oxygen Delivery Method Room Air Weight: 82.6 kg Body Mass Index (BMI) 34.4 Finger Stick Blood Glucose 97 Intake and Output for Last 24 Hours 06/22/18 06/23/18 06/24/18 23:59 23:59 23:59 Intake Total 240 / 240 3190 / 3190 400 / 400 Output Total 950 / 950 1000 / 1000 Balance 240 / 240 2240 / 2240 -600 / -600 General: Awake, Alert, Oriented x 3 HEENT: Atraumatic, Normocephalic Oral: Moist Mucosa Neck: Supple Lungs: Clear to auscultation Cardiovascular: Regular Rhythm, Normal S1, Normal S2 Vascular: - - Right radial pulse 2+ Extremities: No edema 06/24/18 04:58: WBC 7.5, RBC 3.94 L, Hgb 10.1 L, Hct 32.1 L, MCV 81.5, MCH 25.6 L, MCHC 31.5 L, RDW 14.6, RDW Differential 43.8, Plt Count 147 L, MPV 10.5 06/24/18 04:58: Sodium 142, Potassium 3.9, Chloride 107, Carbon Dioxide 28.0, Anion Gap 7, BUN 27 H, Creatinine 1.47 H, Est GFR (MDRD) Af Amer 45 L, Est GFR (MDRD) Non-Af 38 L, BUN/Creatinine Ratio 18.4, Glucose 165 H, Calcium 7.9 L Rhythm: Normal sinus rhythm EKG: ECHO: Stress Test: Cardiac Cath: PCI: CT Surgery: Holter monitor: EPS: PPM: CXR: Chest CT Scan: Medical Necessity - Tobacco Use Smoking Status: Former smoker Tobacco Use: Cigarettes Assessment/Plan 1. Coronary artery disease status post percutaneous intervention to the left anterior descending artery. Stable. Asymptomatic. 2. Hypertension. Blood pressure still uncontrolled requiring as needed Catapres. Stop amlodipine. Start on nifedipine extended release. Need to monitor blood pressure. DC hydrochlorothiazide. Start on Lasix. 3. Diabetes mellitus. If blood pressure improves requiring no further prn administration of clonidine today, then may discharge home tomorrow morning
[2018-06-24 11:11] LABS: Bedside Glucose 373 mg/dL (70-110)
[2018-06-24] MEDS: 0.9% NaCl Peripheral Flush Adult/Peds IV (12:23)
[2018-06-24] MEDS: Furosemide 40 MG/4 ML Vial IV (12:23)
--- NOTE | 2018-06-24 13:44 | PN_ITS ---
<Alphonso Fabian - Last Filed: 06/24/18 13:42> Patient Problems: Active and Suspected Problems (Last Reviewed 06/21/18 @ 16:01 by Chika Matute) ACS (acute coronary syndrome) (Acute) Hypertensive urgency (Acute) Subjective: BP improving. Some CP this AM, right sided, resolved before I saw her this AM. She did also complain of ongoing SOB with exertion, while up in the room. No LE edema. No fever/chills. No palp. No dizziness/LH. - Physical Exam General: Alert, Oriented x3, Cooperative HEENT: Atraumatic, PERRLA, EOMI, Normocephalic Neck: Supple, No JVD, Negative Carotid Bruits Lungs: Rales - right sided Cardiovascular: Regular rate, No murmurs Abdomen: Bowel Sounds Present, Soft, Non Tender Extremities: No edema, Capillary Refill Less than 3 Seconds Skin: No rashes, No breakdown Musculoskeletal: No Tenderness to Palpation of Joints or Extremities Neurological: Cranial nerves II-XII grossly intact Psych/Mental Status: Normal Affect, Appropriate Vital Signs Temp Pulse Resp BP Pulse Ox 98.1 F 65 17 151/57 H 99 06/24/18 12:00 06/24/18 12:00 06/24/18 12:00 06/24/18 12:00 06/24/18 12:00 Oxygen Flow Rate (L/min) 2 Oxygen Delivery Method Room Air Weight: 182 lb 1.629 oz Body Mass Index (BMI) 34.4 Finger Stick Blood Glucose 97 Intake and Output for Last 24 Hours 06/22/18 06/23/18 06/24/18 23:59 23:59 23:59 Intake Total 240 / 240 3190 / 3190 920 / 920 Output Total 950 / 950 1300 / 1300 Balance 240 / 240 2240 / 2240 -380 / -380 Laboratory Tests Past 24 Hrs 06/24/18 06/24/18 04:58 04:58 WBC 7.5 RBC 3.94 L Hgb 10.1 L Hct 32.1 L MCV 81.5 MCH 25.6 L MCHC 31.5 L RDW 14.6 RDW Differential 43.8 Plt Count 147 L MPV 10.5 Sodium 142 Potassium 3.9 Chloride 107 Carbon Dioxide 28.0 Anion Gap 7 BUN 27 H Creatinine 1.47 H Estim Creat Clear Calc 27.64 Est GFR (MDRD) Af Amer 45 L Est GFR (MDRD) Non-Af 38 L BUN/Creatinine Ratio 18.4 Glucose 165 H Calcium 7.9 L POC Glucose 06/24/18 06/24/18 06/23/18 10:59 07:00 21:34 POC Glucose 373 H 148 H 174 H 06/23/18 16:52 POC Glucose 97 Medical Necessity - Tobacco Use Smoking Status: Former smoker Tobacco Use: Cigarettes Assessment/Plan All Active Problems (Last Reviewed 06/21/18 @ 16:01 by Chika Matute) Chest pain (Acute) ACS (acute coronary syndrome) (Acute) Hypertensive urgency (Acute) Cellulitis of buttock (Resolved) Diverticulitis large intestine (Resolved) 1. CP/NSTEMI - post cath and 2 stents placed. Continue asa/plavix/statin/ac e/imdur/hctz. With some congestion on cxr, rales on exam, elevated BNP, and SOB with exertion, will add 40mg IV lasix x1 to see if this helps her breathing. -Creatinine did bump, will continue to monitor and recheck AM BMP. 2. DMt2 - continue insulin regiment. 3. HTN - improving. 4. HLD - statin 5. Chronic back pain - home meds DVT ppx: SCDs DC planning: possibly home tomorrow if stable overnight. This patient was seen by Alphonso Fabian PA-C under the supervision of Dr. Alston. <Samina Alston - Last Filed: 06/24/18 13:48> - Physical Exam Vital Signs Temp Pulse Resp BP Pulse Ox 98.1 F 65 17 151/57 H 99 06/24/18 12:00 06/24/18 12:00 06/24/18 12:00 06/24/18 12:00 06/24/18 12:00 Oxygen Flow Rate (L/min) 2 Oxygen Delivery Method Room Air Weight: 182 lb 1.629 oz Body Mass Index (BMI) 34.4 Finger Stick Blood Glucose 97 Intake and Output for Last 24 Hours 06/22/18 06/23/18 06/24/18 23:59 23:59 23:59 Intake Total 240 / 240 3190 / 3190 920 / 920 Output Total 950 / 950 1300 / 1300 Balance 240 / 240 2240 / 2240 -380 / -380 Laboratory Tests Past 24 Hrs 06/24/18 06/24/18 04:58 04:58 WBC 7.5 RBC 3.94 L Hgb 10.1 L Hct 32.1 L MCV 81.5 MCH 25.6 L MCHC 31.5 L RDW 14.6 RDW Differential 43.8 Plt Count 147 L MPV 10.5 Sodium 142 Potassium 3.9 Chloride 107 Carbon Dioxide 28.0 Anion Gap 7 BUN 27 H Creatinine 1.47 H Estim Creat Clear Calc 27.64 Est GFR (MDRD) Af Amer 45 L Est GFR (MDRD) Non-Af 38 L BUN/Creatinine Ratio 18.4 Glucose 165 H Calcium 7.9 L POC Glucose 06/24/18 06/24/18 06/23/18 10:59 07:00 21:34 POC Glucose 373 H 148 H 174 H 06/23/18 16:52 POC Glucose 97 Assessment/Plan Hospitalist note: I am seeing this patient in conjunction with Alphonso Fabian. I independently seen and examined the patient. Progress note above and laboratory data I concur with the above treatment plan. Today, patient complains of exertional shortness of breath when she walks to the bathroom. Overnight, she had chest pain on the right side that lasted for a few seconds. Her vital signs are stable. - Physical Exam General: Alert, Oriented x3, Cooperative, No apparent distress. HEENT: Atraumatic, PERRLA, EOMI. Neck: Supple, No JVD, Negative Carotid Bruits, Trachea Midline, Thyroid Normal. Lungs: Clear to auscultation, Normal air movement, No rhonchi, No wheeze, No rales. Cardiovascular: Regular rate, Regular Rhythm, Normal S1, Normal S2, PMI Normal. Abdomen: Bowel Sounds Present, Soft, Non Tender, Non-Distended, No Hepato- splenomegaly. Extremities: No clubbing, No cyanosis, No edema Skin: No rashes, No breakdown Neurological: Neuro grossly intact #1 Acute non-ST elevation CA: Status post cardiac catheterization, found to have two-vessel disease of the LAD and RCA, status post stenting. She is on aspirin, Plavix, statins, lisinopril and nitrates. Today, patient complained of exertional shortness of breath and she does have minimal pulmonary vascular congestion on chest x-ray. Blood pressure still uncontrolled, fluctuating up and down. Serum creatinine start to go up. Plan: Started on nifedipine XL 60 mg p.o. daily, will give 1 dose of IV Lasix, repeat BMP tomorrow morning. #2 uncontrolled hypertension: Blood pressure still fluctuating significantly. Started on nifedipine, continue labetalol, lisinopril and ulcers Midamor nitrate. Also, started on Lasix. #3 other chronic medical problems: Stable, continue current medications as above. This note was generated with [employer] dictation software. It may contain incorrect words, spelling, and punctuation that were not noted in checking the note before signing. Code Visit Inpatient E&M: 04392 Subs Hosp L2
[2018-06-24] MEDS: HYDROcodone Bitartrate/Apap 5/325 Tablet PO (14:45)
[2018-06-24 17:21] LABS: Bedside Glucose 79 mg/dL (70-110)
[2018-06-24] MEDS: Magnesium Hydroxide 30 ML UDC PO (17:59)
[2018-06-24] MEDS: Atorvastatin Calcium 10 MG Tablet PO (21:24)
[2018-06-24 21:31] LABS: Bedside Glucose 124 mg/dL (70-110)
[2018-06-25] VITALS (7 sets, daily range): BP systolic 135–155; BP diastolic 55–68; PULSE 66–70; RESP 16–18; TEMP 36.6–36.8; O2SAT 95–97
[2018-06-25 06:22] LABS: Anion Gap 9 (5-15); BUN 32 mg/dL (7-18); BUN/Creat Ratio 22.9 RATIO (10-20); Calcium,Total 8.6 mg/dL (8.5-10.1); Chloride 109 mmol/L (98-107); EST Glomerular Filtration Rate 40 mL/min (>60); Est Glom Filt Rate - Afr Amer 48 mL/min (>60); Estimated Creatinine Clearance 29.02 ml/min; Glucose 102 mg/dL (74-106); Potassium 3.9 mmol/L (3.5-5.1); Sodium Level 144 mmol/L (136-145)
[2018-06-25 06:23] LABS: Absolute Lymphocyte Count 2.15 X10^3/ul (0.83-4.51); Absolute Neutrophil Count 3.9 X10^3/uL (2.0-7.7); Basophil# 0.04 X10^3/uL; Basophil% 0.6 % (0-1); Eosinophil# 0.25 X10^3/uL; Eosinophils% 3.6 % (0-5); Hematocrit 34.1 % (37-47); Hemoglobin 10.8 g/dl (12.0-15.0); Lymphocyte # 2.15 X10^3/ul (4.0); Lymphocyte % 30.6 % (19-41); Mean Corp Hgb Conc 31.7 g/gl (32-36); Mean Corpuscular Hgb 25.8 pg (27.0-32.0); Mean Corpuscular Volume 81.6 fL (81-99); Mean Platelet Vol. 11.3 fl (6.2-12.0); Monocyte# 0.64 X10^3/uL; Monocyte% 9.1 % (0-10); Neutrophil # 3.91 X10^3/uL (2.7-7.7); Neutrophil % 55.7 % (47-70); Platelet Count 165 K/mm3 (150-450); RBC Distribution Width CV 14.6 % (11.6-14.6); RBC Distribution Width SD 42.7 fl (35.1-43.9); Red Blood Count 4.18 M/mm3 (4.2-5.4)
[2018-06-25 06:35] LABS: POSITIVE COUNT NO; POSITIVE DIFFERENTIAL NO; POSITIVE MORPHOLOGY NO
[2018-06-25 07:06] LABS: Bedside Glucose 108 mg/dL (70-110)
[2018-06-25] MEDS: Aspirin E.C. 81 MG Tablet PO (07:44)
[2018-06-25] MEDS: diazePAM 5 MG Tablet 2.5 MG PO (07:44)
[2018-06-25] MEDS: Insulin Lispro 100 UNIT/ML INSULN.PEN 10 UNIT SC ×2 (07:46→13:12)
[2018-06-25] MEDS: NIFEdipine 60 MG Tablet PO (07:48)
[2018-06-25] MEDS: Labetalol 200 MG Tablet 400 MG PO (09:02)
[2018-06-25] MEDS: Isosorbide Mononitrate 30 MG Tablet PO (09:02)
[2018-06-25] MEDS: Clopidogrel Bisulfate 75 MG Tablet PO (09:02)
[2018-06-25] MEDS: Lidocaine 5% Patch 1 PATCH TOPICAL (09:03)
[2018-06-25] MEDS: Furosemide 40 MG Tablet PO (09:03)
[2018-06-25] MEDS: Lisinopril 20 MG Tablet PO (09:10)
--- NOTE | 2018-06-25 10:00 | EKG12_ITS ---
Test Reason : AM EKG Blood Pressure : / mmHG Vent. Rate : 067 BPM Atrial Rate : 067 BPM P-R Int : 186 ms QRS Dur : 082 ms QT Int : 428 ms P-R-T Axes : 052 -17 133 degrees QTc Int : 452 ms Normal sinus rhythm T wave abnormality, consider lateral ischemia Abnormal ECG When compared with ECG of 24-JUN-2018 05:15, MANUAL COMPARISON REQUIRED, DATA IS UNCONFIRMED Confirmed by BRIDGET GUADALUPE, LUIZ ([id number]), fashion editor JAMES MULLEN ([id number]) on 06/28/2018 3:59:13 PM Referred By: ROSSY Confirmed By:LUIZ GILL MD
[2018-06-25 11:15] LABS: Bedside Glucose 156 mg/dL (70-110)
--- NOTE | 2018-06-25 11:41 | DCINST_ITS ---
- Discharge Diagnoses Current Active Problems: Current Active and Chronic Problems (Last Reviewed 06/21/18 @ 16:01 by Chika Matute) ACS (acute coronary syndrome) (Acute) Hypertensive urgency (Acute) You will use the following diet at home:: Calorie/Carbohydrate Controlled (specify 1200, 1400, etc) - 1800 parris., Cardiac Your food should be the consistency of: Regular Discharge Activity: Return to Normal Activity Weight Bearing Status: Weight bearing as tolerated Call your doctor if you observe: Fever of 101 or Higher, Shortness of breath, Dizziness, Fainting spells, Chest pain, Increased palpitations (irregular heartbeat), Uncontrolled pain Instructions: Discharge Instructions for Heart Attack, Controlling High Blood Pressure, Taking Your Blood Pressure Allergies/Adverse Reactions: Allergies metformin Allergy (Verified 06/21/18 15:59) Unknown aspirin [ASA] Adverse Reaction (Verified 06/22/18 10:56) Nausea Medications to take at Discharge Lisinopril [Zestril] 20 mg PO BID 04/15/16 Simvastatin [Zocor] 20 mg PO QHS 04/15/16 insulin aspart U- 100 100 unit/mL subcutaneous pen 10 unit SC TIDCM ml 07/26/17 Hydrocodone Bitart/Apap 5-325 [[place] 5/325] 1 - 2 tab PO Q4H PRN PRN 3 Days #12 tab 11/02/17 Labetalol [Trandate (Beta Stefanie)] 400 mg PO BID #120 tab 06/16/18 Diazepam [Valium] 2.5 mg PO PRN PRN 06/22/18 Insulin Detemir [Levemir FlexPen] 10 units SQ QHS 06/22/18 Insulin Detemir [Levemir FlexPen] 17 units SQ DAILY 06/22/18 Lidocaine [Lidoderm Patch] 1 patch TOPICAL DAILY 06/22/18 Nitroglycerin [Nitrostat] 0.4 mg SUBLINGUAL Q5M PRN 06/22/18 Aspirin E.C. [Ecotrin] 81 mg PO DAILY@0800 #90 tablet 06/25/18 Clopidogrel Bisulfate [Plavix] 75 mg PO DAILY #90 tablet 06/25/18 Furosemide [Lasix] 40 mg PO DAILY #30 tablet 06/25/18 Isosorbide Mononitrate [Imdur] 30 mg PO DAILY #30 tablet 06/25/18 NIFEdipine [Procardia Xl] 60 mg PO DAILY #30 tablet 06/25/18 The following prescriptions were given: Aspirin E.C. [Ecotrin] 81 mg PO DAILY@0800 #90 tablet Clopidogrel Bisulfate [Plavix] 75 mg PO DAILY #90 tablet Furosemide [Lasix] 40 mg PO DAILY #30 tablet Isosorbide Mononitrate [Imdur] 30 mg PO DAILY #30 tablet NIFEdipine [Procardia Xl] 60 mg PO DAILY #30 tablet Primary Care Physician: Annette Mckinley MD [Primary Care Provider] - Please follow up with your Primary Care Physician in: 1 week. Test Results: Test results from this visit will be discussed in further detail at your follow- up appointment, if applicable. Please Follow Up With: Sylvain Mcdowell MD When: 2 weeks.
--- NOTE | 2018-06-25 14:01 | PCM.DC.SUM ---
Discharge Date and Diagnosis Date of Admission: 06/22/18 Date of Discharge: 06/25/18 - Primary Discharge Diagnosis #1 acute non-ST elevation HI, status post stents to LAD and RCA. #2 uncontrolled hypertension. - Secondary Discharge Diagnosis Chronic Problems (Last Reviewed 06/21/18 @ 16:01 by Chika Matute) Anxiety (Chronic) Chronic renal failure, stage 3 (moderate) (Chronic) Hyperlipidemia (Chronic) On statin without side effect. Enc fax seed oil capsules. Hypertension (Chronic) Initial BP elevated. Rechecked 136/80 Enc to continue to monitor diet, weight, exercise. Diabetes mellitus (Chronic) Control has improved. A1c down to 7.3 Doing fairly well with diet. Exercise has started to increase. Eating occ snack. Hepatitis C (Chronic) Angina pectoris (Chronic) Hospital Course and Treatment Imaging Results: Clinical Impression(s) from Imaging Studies Chest X-Ray 06/22/18 11:50 IMPRESSION: Findings in keeping with mild degree of CHF. Blunting of the right costophrenic angle with right basilar atelectasis. Electronically Signed: Teto De La Torre MD at 13:14 EST Tel [phone], Service support , Dr. Mcdowell, Dr. yañez, cardiology. Operations: None Procedures: Cardiac catheterization, EKG Summary of Care Provided: Patient seen and examined on the day of discharge and appeared to be stable to be discharged home. Shortness of breath on ambulation improved. She denied any more chest pain. Her blood pressure is getting better, other vital signs are stable. The patient is a 67 year old F admitted because of chest pain and shortness of breath, found to have acute non-ST elevation HI. Patient underwent cardiac catheterization she was found to have two-vessel disease of the LAD and RCA . She underwent successful SIVAN placement to proximal LAD. Patient was treated with aspirin, Plavix, statins, labetalol and lisinopril. Her blood pressure was elevated. Her medication was adjusted. She was started on Procardia XL 60 mg p.o. daily as well as isosorbide mononitrate. Patient did complain of exertional shortness of breath and that was expected to be due to probable mild acute diastolic CHF. She received 1 dose of IV Lasix and she was started on oral Lasix. Her symptoms improved. Patient remained without chest pain after the cardiac intervention. Her blood pressure improved. Patient discharged home in a stable medical condition, discharged on aspirin, Plavix, labetalol, lisinopril, statins and nitrates. Started on Procardia XL for uncontrolled hypertension as well as Lasix recommended to follow-up with PCP in 1 week, recommended to check blood pressure at least twice daily, follow-up with cardiology in 2 weeks. - Physical Exam General: Alert, Oriented x3, Cooperative, No apparent distress HEENT: Atraumatic, PERRLA, EOMI, Normocephalic Oral: Moist Mucosa, No Gingival or Mucosal Lesions/ Ulcerations Neck: Supple, No JVD, Negative Carotid Bruits, Trachea Midline, Thyroid Normal Size and Texture Lungs: Clear to auscultation, Normal air movement, No rhonchi, No wheeze, No rales Cardiovascular: Regular rate, Regular Rhythm, Normal S1, Normal S2, PMI Normal Abdomen: Bowel Sounds Present, Soft, Non Tender, Non-Distended, No Hepato-splenomegaly Extremities: No clubbing, No cyanosis, No edema Skin: No rashes, No breakdown Lymphatic: No Cervical, Supraclavicular, or Inguinal Adenopathy Neurological: Cranial nerves II-XII grossly intact, Neuro grossly intact Psych/Mental Status: Normal Affect, Appropriate Vital Signs Temp Pulse Resp BP Pulse Ox 98.3 F 70 16 138/55 H 95 06/25/18 08:57 06/25/18 08:57 06/25/18 08:57 06/25/18 08:57 06/25/18 08:57 Oxygen Flow Rate (L/min) 2 Oxygen Delivery Method Room Air Weight: 181 lb 7.047 oz Body Mass Index (BMI) 34.4 Finger Stick Blood Glucose 97 Intake and Output for Last 24 Hours 06/23/18 06/24/18 06/25/18 23:59 23:59 23:59 Intake Total 3190 / 3190 1400 / 1400 600 / 600 Output Total 950 / 950 1300 / 1300 Balance 2240 / 2240 100 / 100 600 / 600 Laboratory Tests Past 24 Hrs 06/25/18 06/25/18 05:53 05:53 WBC 7.0 RBC 4.18 L Hgb 10.8 L Hct 34.1 L MCV 81.6 MCH 25.8 L MCHC 31.7 L RDW 14.6 RDW Differential 42.7 Plt Count 165 MPV 11.3 Immature Gran % (Auto) 0.400 Neut % (Auto) 55.7 Lymph % (Auto) 30.6 [place] % (Auto) 9.1 Eos % (Auto) 3.6 Baso % (Auto) 0.6 Absolute Neuts (auto) 3.9 Absolute Lymphs (auto) 2.15 Total Counted Not Reportable Sodium 144 Potassium 3.9 Chloride 109 H Carbon Dioxide 26.0 Anion Gap 9 BUN 32 H Creatinine 1.40 H Estim Creat Clear Calc 29.02 Est GFR (MDRD) Af Amer 48 L Est GFR (MDRD) Non-Af 40 L BUN/Creatinine Ratio 22.9 H Glucose 102 Calcium 8.6 POC Glucose 06/25/18 06/25/18 06/24/18 11:04 06:48 21:07 POC Glucose 156 H 108 124 H 06/24/18 16:49 POC Glucose 79 Discharge Activity: Return to Normal Activity Weight Bearing Status: Weight bearing as tolerated Call your doctor if you observe: Fever of 101 or Higher, Shortness of breath, Dizziness, Fainting spells, Chest pain, Increased palpitations (irregular heartbeat), Uncontrolled pain Home Medications: Medications to take at Discharge Lisinopril [Zestril] 20 mg PO BID 04/15/16 Simvastatin [Zocor] 20 mg PO QHS 04/15/16 insulin aspart U- 100 100 unit/mL subcutaneous pen 10 unit SC TIDCM ml 07/26/17 Hydrocodone Bitart/Apap 5-325 [[place] 5/325] 1 - 2 tab PO Q4H PRN PRN 3 Days #12 tab 11/02/17 Labetalol [Trandate (Beta Stefanei)] 400 mg PO BID #120 tab 06/16/18 Diazepam [Valium] 2.5 mg PO PRN PRN 06/22/18 Insulin Detemir [Levemir FlexPen] 10 units SQ QHS 06/22/18 Insulin Detemir [Levemir FlexPen] 17 units SQ DAILY 06/22/18 Lidocaine [Lidoderm Patch] 1 patch TOPICAL DAILY 06/22/18 Nitroglycerin [Nitrostat] 0.4 mg SUBLINGUAL Q5M PRN 06/22/18 Aspirin E.C. [Ecotrin] 81 mg PO DAILY@0800 #90 tablet 06/25/18 Clopidogrel Bisulfate [Plavix] 75 mg PO DAILY #90 tablet 06/25/18 Furosemide [Lasix] 40 mg PO DAILY #30 tablet 06/25/18 Isosorbide Mononitrate [Imdur] 30 mg PO DAILY #30 tablet 06/25/18 NIFEdipine [Procardia Xl] 60 mg PO DAILY #30 tablet 06/25/18 Following Prescrptions Were Given to Patient: Aspirin E.C. [Ecotrin] 81 mg PO DAILY@0800 #90 tablet Clopidogrel Bisulfate [Plavix] 75 mg PO DAILY #90 tablet Furosemide [Lasix] 40 mg PO DAILY #30 tablet Isosorbide Mononitrate [Imdur] 30 mg PO DAILY #30 tablet NIFEdipine [Procardia Xl] 60 mg PO DAILY #30 tablet Primary Care Physician: Annette Mckinley MD [Primary Care Provider] - Please follow up with your Primary Care Physician in: 1 week. Please Follow Up With: Sylvain Mcdowell MD When: 2 weeks. Patient Instructions: Controlling High Blood Pressure, Taking Your Blood Pressure, Discharge Instructions for Heart Attack Disposition: Home Minutes spent on discharge:: 32 Patient Condition:: Stable Medical Necessity - Tobacco Use Smoking Status: Former smoker Tobacco Use: Cigarettes Meaningful Use Info Meaningful Use Diagnoses (Choose all that apply): AMI - AMI Aspirin given w/in 24hrs of arrival?: Yes ASA at discharge?: Yes Statins at discharge?: Yes Skip/ARB at discharge?: Yes Beta Stefanie at discharge?: Yes Done w/ Acute HI measure.: Yes Code Visit Inpatient E&M: 23139 Disch Hosp
--- NOTE | 2018-06-25 14:07 | DS.PCM_ITS ---
Discharge Date and Diagnosis Date of Admission: 06/22/18 Date of Discharge: 06/25/18 - Primary Discharge Diagnosis #1 acute non-ST elevation MO, status post stents to LAD and RCA. #2 uncontrolled hypertension. - Secondary Discharge Diagnosis Chronic Problems (Last Reviewed 06/21/18 @ 16:01 by Chika Matute) Anxiety (Chronic) Chronic renal failure, stage 3 (moderate) (Chronic) Hyperlipidemia (Chronic) On statin without side effect. Enc fax seed oil capsules. Hypertension (Chronic) Initial BP elevated. Rechecked 136/80 Enc to continue to monitor diet, weight, exercise. Diabetes mellitus (Chronic) Control has improved. A1c down to 7.3 Doing fairly well with diet. Exercise has started to increase. Eating occ snack. Hepatitis C (Chronic) Angina pectoris (Chronic) Hospital Course and Treatment Imaging Results: Clinical Impression(s) from Imaging Studies Chest X-Ray 06/22/18 11:50 IMPRESSION: Findings in keeping with mild degree of CHF. Blunting of the right costophrenic angle with right basilar atelectasis. Electronically Signed: Teto De La Torre MD at 13:14 EST Tel [phone], Service support , Dr. Mcdowell, Dr. yañez, cardiology. Operations: None Procedures: Cardiac catheterization, EKG Summary of Care Provided: Patient seen and examined on the day of discharge and appeared to be stable to be discharged home. Shortness of breath on ambulation improved. She denied any more chest pain. Her blood pressure is getting better, other vital signs are stable. The patient is a 67 year old F admitted because of chest pain and shortness of breath, found to have acute non-ST elevation MO. Patient underwent cardiac catheterization she was found to have two-vessel disease of the LAD and RCA . She underwent successful SIVAN placement to proximal LAD. Patient was treated with aspirin, Plavix, statins, labetalol and lisinopril. Her blood pressure was elevated. Her medication was adjusted. She was started on Procardia XL 60 mg p.o. daily as well as isosorbide mononitrate. Patient did complain of exertional shortness of breath and that was expected to be due to probable mild acute diastolic CHF. She received 1 dose of IV Lasix and she was started on oral Lasix. Her symptoms improved. Patient remained without chest pain after the cardiac intervention. Her blood pressure improved. Patient discharged home in a stable medical condition, discharged on aspirin, Plavix, labetalol, lisinopril, statins and nitrates. Started on Procardia XL for uncontrolled hypertension as well as Lasix recommended to follow-up with PCP in 1 week, recommended to check blood pressure at least twice daily, follow-up with cardiology in 2 weeks. - Physical Exam General: Alert, Oriented x3, Cooperative, No apparent distress HEENT: Atraumatic, PERRLA, EOMI, Normocephalic Oral: Moist Mucosa, No Gingival or Mucosal Lesions/ Ulcerations Neck: Supple, No JVD, Negative Carotid Bruits, Trachea Midline, Thyroid Normal Size and Texture Lungs: Clear to auscultation, Normal air movement, No rhonchi, No wheeze, No rales Cardiovascular: Regular rate, Regular Rhythm, Normal S1, Normal S2, PMI Normal Abdomen: Bowel Sounds Present, Soft, Non Tender, Non-Distended, No Hepato- splenomegaly Extremities: No clubbing, No cyanosis, No edema Skin: No rashes, No breakdown Lymphatic: No Cervical, Supraclavicular, or Inguinal Adenopathy Neurological: Cranial nerves II-XII grossly intact, Neuro grossly intact Psych/Mental Status: Normal Affect, Appropriate Vital Signs Temp Pulse Resp BP Pulse Ox 98.3 F 70 16 138/55 H 95 06/25/18 08:57 06/25/18 08:57 06/25/18 08:57 06/25/18 08:57 06/25/18 08:57 Oxygen Flow Rate (L/min) 2 Oxygen Delivery Method Room Air Weight: 181 lb 7.047 oz Body Mass Index (BMI) 34.4 Finger Stick Blood Glucose 97 Intake and Output for Last 24 Hours 06/23/18 06/24/18 06/25/18 23:59 23:59 23:59 Intake Total 3190 / 3190 1400 / 1400 600 / 600 Output Total 950 / 950 1300 / 1300 Balance 2240 / 2240 100 / 100 600 / 600 Laboratory Tests Past 24 Hrs 06/25/18 06/25/18 05:53 05:53 WBC 7.0 RBC 4.18 L Hgb 10.8 L Hct 34.1 L MCV 81.6 MCH 25.8 L MCHC 31.7 L RDW 14.6 RDW Differential 42.7 Plt Count 165 MPV 11.3 Immature Gran % (Auto) 0.400 Neut % (Auto) 55.7 Lymph % (Auto) 30.6 [place] % (Auto) 9.1 Eos % (Auto) 3.6 Baso % (Auto) 0.6 Absolute Neuts (auto) 3.9 Absolute Lymphs (auto) 2.15 Total Counted Not Reportable Sodium 144 Potassium 3.9 Chloride 109 H Carbon Dioxide 26.0 Anion Gap 9 BUN 32 H Creatinine 1.40 H Estim Creat Clear Calc 29.02 Est GFR (MDRD) Af Amer 48 L Est GFR (MDRD) Non-Af 40 L BUN/Creatinine Ratio 22.9 H Glucose 102 Calcium 8.6 POC Glucose 06/25/18 06/25/18 06/24/18 11:04 06:48 21:07 POC Glucose 156 H 108 124 H 06/24/18 16:49 POC Glucose 79 Discharge Activity: Return to Normal Activity Weight Bearing Status: Weight bearing as tolerated Call your doctor if you observe: Fever of 101 or Higher, Shortness of breath, Dizziness, Fainting spells, Chest pain, Increased palpitations (irregular heartbeat), Uncontrolled pain Home Medications: Medications to take at Discharge Lisinopril [Zestril] 20 mg PO BID 04/15/16 Simvastatin [Zocor] 20 mg PO QHS 04/15/16 insulin aspart U- 100 100 unit/mL subcutaneous pen 10 unit SC TIDCM ml 07/26/17 Hydrocodone Bitart/Apap 5-325 [[place] 5/325] 1 - 2 tab PO Q4H PRN PRN 3 Days #12 tab 11/02/17 Labetalol [Trandate (Beta Stefanie)] 400 mg PO BID #120 tab 06/16/18 Diazepam [Valium] 2.5 mg PO PRN PRN 06/22/18 Insulin Detemir [Levemir FlexPen] 10 units SQ QHS 06/22/18 Insulin Detemir [Levemir FlexPen] 17 units SQ DAILY 06/22/18 Lidocaine [Lidoderm Patch] 1 patch TOPICAL DAILY 06/22/18 Nitroglycerin [Nitrostat] 0.4 mg SUBLINGUAL Q5M PRN 06/22/18 Aspirin E.C. [Ecotrin] 81 mg PO DAILY@0800 #90 tablet 06/25/18 Clopidogrel Bisulfate [Plavix] 75 mg PO DAILY #90 tablet 06/25/18 Furosemide [Lasix] 40 mg PO DAILY #30 tablet 06/25/18 Isosorbide Mononitrate [Imdur] 30 mg PO DAILY #30 tablet 06/25/18 NIFEdipine [Procardia Xl] 60 mg PO DAILY #30 tablet 06/25/18 Following Prescrptions Were Given to Patient: Aspirin E.C. [Ecotrin] 81 mg PO DAILY@0800 #90 tablet Clopidogrel Bisulfate [Plavix] 75 mg PO DAILY #90 tablet Furosemide [Lasix] 40 mg PO DAILY #30 tablet Isosorbide Mononitrate [Imdur] 30 mg PO DAILY #30 tablet NIFEdipine [Procardia Xl] 60 mg PO DAILY #30 tablet Primary Care Physician: Annette Mckinley MD [Primary Care Provider] - Please follow up with your Primary Care Physician in: 1 week. Please Follow Up With: Sylvain Mcdowell MD When: 2 weeks. Patient Instructions: Controlling High Blood Pressure, Taking Your Blood Pressure, Discharge Instructions for Heart Attack Disposition: Home Minutes spent on discharge:: 32 Patient Condition:: Stable Medical Necessity - Tobacco Use Smoking Status: Former smoker Tobacco Use: Cigarettes Meaningful Use Info Meaningful Use Diagnoses (Choose all that apply): AMI - AMI Aspirin given w/in 24hrs of arrival?: Yes ASA at discharge?: Yes Statins at discharge?: Yes Skip/ARB at discharge?: Yes Beta Stefanie at discharge?: Yes Done w/ Acute MO measure.: Yes Code Visit Inpatient E&M: 67067 Disch Hosp
--- NOTE | 2018-06-26 14:19 | CASEMGMT ---
RN CM Discharge Follow-up Phone Call: PEPE: Lynne Strata: 3 Call Date: 06/26/18 Discharge Date: 06/25/18 Time of Call: 1420 Duration: 0 ? Admitting Diagnosis: NSTEMI This RN KYREE attempted to contact pt regarding discharged follow-up. Voicemail message received and message left requesting a return call if the pt has any questions or concerns. Lexi Ivy RN
--- OUTSIDE RECORDS SUMMARY | 2018-08-08 09:37 | XMS RPT_ITS ---
:1950 Author Organization OHIP Support Name Relationship Address Phone ELIAS LORD Unavailable [address] [place] [address] R Unavailable Unavailable Unavailable ELIAS LORD Unavailable [address] [place] [address] R Unavailable Unavailable Unavailable ELIAS LORD Unavailable [address] [place] [address] R Unavailable Unavailable Unavailable ELIAS LORD Unavailable [address] [place] [address] R Unavailable Unavailable Unavailable ELIAS LORD Unavailable [address] [place] [address] R Unavailable Unavailable Unavailable ELIAS LORD Unavailable [address] [place] [address] R Unavailable Unavailable Unavailable ELIAS LORD Unavailable [address] [place] [address] R Unavailable Unavailable Unavailable ELIAS LORD Unavailable [address] [place] [address] R Unavailable Unavailable Unavailable ELIAS LORD Unavailable [address] [place] [address] R Unavailable Unavailable Unavailable ELIAS LORD Unavailable [address] [place] [address] R Unavailable Unavailable Unavailable ELIAS LORD Unavailable [address] [place] [address] R Unavailable Unavailable Unavailable ELIAS LORD Unavailable [address] [place] [address] R Unavailable Unavailable Unavailable LEIAS LORD Unavailable [address] [place] [address] R Unavailable Unavailable Unavailable ELIAS LORD Unavailable [address] [place] [address] R Unavailable Unavailable Unavailable ELIAS LORD Unavailable [address] [place] [address] R Unavailable Unavailable Unavailable ELIAS LORD Unavailable [address] [place] [address] R Unavailable Unavailable Unavailable ELIAS LORD Unavailable [address] [place] [address] R Unavailable Unavailable Unavailable ELIAS LORD Unavailable [address] [place] [address] R Unavailable Unavailable Unavailable ELIAS LORD Unavailable [address] [phone] [address] [place] [address] R Unavailable Unavailable Unavailable ELIAS LORD Unavailable [address] [place] [address] R Unavailable Unavailable Unavailable ELIAS LORD Unavailable [address] [place] [address] R Unavailable Unavailable Unavailable ELIAS LORD Unavailable [phone] [address] [place] [address] R Unavailable Unavailable Unavailable Care Team Providers Name Role Phone Sheryl Lopez DIRECTOR QUALITY SYSTEMS-C Attending Unavailable Talampas, Abrahan Referring Unavailable Talampas, Abrahan Primary Care Unavailable Kotsonis, Patrick F Admitting Unavailable Jeremias, Sylvain Consulting Unavailable Ashelfah, Ghasem Attending Unavailable Kotsonis, Patrick F Admitting Unavailable Kotsonis, Patrick F Attending Unavailable Talampas, Abrahan Primary Care Unavailable Jeremias, Sylvain Consulting Unavailable Kotsonis, Patrick F Consulting Unavailable Kotsonis, Patrick F Admitting Unavailable Jeremias, Sylvain Attending Unavailable Talampas, Abrahan Primary Care Unavailable Jeremias, [place] Consulting Unavailable Ashelfah, Ghasem Consulting Unavailable Kotsonis, Patrick F Admitting Unavailable Talampas, Abrahan Primary Care Unavailable Jeremias, Sylvain Consulting Unavailable Ashelfah, Ghasem Attending Unavailable Ashelfah, Ghasem Consulting Unavailable Kotsonis, Patrick F Admitting Unavailable Nba, Saul Attending Unavailable Talampas, Abrahan Primary Care Unavailable Jeremias, Sylvain Consulting Unavailable Ashelfah, Ghasem Consulting Unavailable Kotsonis, Patrick F Admitting Unavailable Talampas, Abrahan Primary Care Unavailable Jeremias, Sylvain Consulting Unavailable Ashelfah, Ghasem Attending Unavailable Ashelfah, Ghasem Consulting Unavailable Kotsonis, Patrick F Admitting Unavailable Ashelfah, Ghasem Attending Unavailable Talampas, Abrahan Primary Care Unavailable Jeremias, Sylvain Consulting Unavailable Ashelfah, Ghasem Consulting Unavailable Yue Holley Attending Unavailable Jeremias, Sylvain Attending Unavailable Sementi, Lauren Referring Unavailable Jeremias, [place] Attending Unavailable Ashelfah, Ghasem Referring Unavailable Jeremias, Sylvain Attending Unavailable Talampas, Abrahan Referring Unavailable Jeremias, [place] Attending Unavailable Jeremias, Sylvain Referring Unavailable Talampas, Abrahan Primary Care Unavailable Sheryl Lopez DIRECTOR QUALITY SYSTEMS-C Attending Unavailable Talampas, Abrahan Referring Unavailable Talampas, Abrahan Primary Care Unavailable Talampas, Abrahan Primary Care Unavailable Ungur, Malloryus Attending Unavailable ShookSheryl DIRECTOR QUALITY SYSTEMS-C Attending Unavailable Talampas, Abrahan Referring Unavailable ShookSheryl DIRECTOR QUALITY SYSTEMS-C Attending Unavailable Talampas, Abrahan Referring Unavailable Talampas, Abrahan Primary Care Unavailable Sementi, Lauren Admitting Unavailable Tereletsky Simon Attending Unavailable Sementi, Lauren Admitting Unavailable Sementi, Lauren Attending Unavailable Talampas, Abrahan Primary Care Unavailable Sementi, Lauren Consulting Unavailable Sementi, Lauren Admitting Unavailable Tereletsky, Simon Attending Unavailable Talampas, Abrahan Primary Care Unavailable Tereletsky, Simon Consulting Unavailable Jeremias, [place] Attending Unavailable Jeremias, [place] Referring Unavailable Talampas, Abrahan Primary Care Unavailable Nba, Saul Attending Unavailable Nba, Saul Referring Unavailable Talampas, Abrahan Primary Care Unavailable TALAMPAS, ABRAHAN D Attending Unavailable TALAMPAS, ABRAHAN D Referring Unavailable TALAMPAS, ABRAHAN D Referring Unavailable TALAMPAS, ABRAHAN D Attending Unavailable MANDO DAVENPORT ([facility]) Referring Unavailable TESTRAKE, EL Attending Unavailable TESTRAKE, EL Referring Unavailable TALAMPAS, ABRAHAN D Referring Unavailable TALAMPAS, ABRAHAN D Attending Unavailable CORNIELLO, MANDO [place] ([facility]) Referring Unavailable TALAMPAS, ABRAHAN D Attending Unavailable TESTRAKE, EL Attending Unavailable TESTRAKE, EL Referring Unavailable TESTRAKE, EL Referring Unavailable TALAMPAS, ABRAHAN D Referring Unavailable TALAMPAS, ABRAHAN D Attending Unavailable CORNIELLO, MANDO [place] ([facility]) Referring Unavailable TALAMPAS, ABRAHAN D Attending Unavailable TESTRAKE, EL Attending Unavailable TESTRAKE, EL Referring Unavailable TALAMPAS, ABRAHAN D Attending Unavailable CORNIELLO, MANDO [place] ([facility]) Referring Unavailable TALAMPAS, ABRAHAN D Referring Unavailable TALAMPAS, ABRAHAN D Referring Unavailable TALAMPAS, ABRAHAN D Attending Unavailable TALAMPAS, ABRAHAN D Referring Unavailable TALAMPAS, ABRAHAN D Referring Unavailable MCINTOSH, YOUNG (BROACHING MACHINE SET UP OPERATOR) Attending Unavailable TALAMPAS, ABRAHAN D Referring Unavailable MCINTOSH, YOUNG (BROACHING MACHINE SET UP OPERATOR) Referring Unavailable MCINTOSH, YOUNG (BROACHING MACHINE SET UP OPERATOR) Attending Unavailable MCINTOSH, YOUNG (BROACHING MACHINE SET UP OPERATOR) Referring Unavailable TALAMPAS, ABRAHAN D Attending Unavailable TALAMPAS, ABRAHAN D Referring Unavailable MCINTOSH, YOUNG (BROACHING MACHINE SET UP OPERATOR) Attending Unavailable CORNIELLO, MANDO [place] ([facility]) Referring Unavailable CARLOS EDUARDO DE LEÓN Attending Unavailable [facility] Referring Unavailable PROBLEMS PROBLEMS DATE TYPE CONDITION / CODE ATTENDING STATUS SOURCE 07/24/2018 Unknown I21.4 - Non-ST Jeremias, [place] Active [facility] elevation (NSTEMI) Community myocardial Hospital infarction / Repository I21.4(ICD-10) 07/24/2018 Unknown I25.10 - Jeremias, Sylavin Active [place] Atherosclerotic Community heart disease of [facility] [place] coronary Repository artery without angina pectoris / I25.10(ICD-10) 07/24/2018 Unknown I10 - Essential Jeremias, Sylvain Active [facility] (primary) Community hypertension / Hospital I10(ICD-10) Repository 07/24/2018 Unknown E78.5 - Jeremias, Sylvain Active [place] Hyperlipidemia, Community unspecified / Hospital E78.5(ICD-10) Repository 07/24/2018 Unknown I50.31 - Acute Jeremias, [place] Active [facility] diastolic Community (congestive) heart Hospital failure / Repository I50.31(ICD-10) 07/24/2018 Unknown Z95.5 - Presence of Jeremias, [place] Active [place] coronary angioplasty Community implant and graft / Hospital Z95.5(ICD-10) Repository 07/05/2018 Unknown R07.9 - Chest pain, Jeremias, [place] Active [place] unspecified / Community R07.9(ICD-10) Hospital Repository 05/10/2018 Active Encounter for NA Active [place] screening mammogram [facility] Main for malignant [place] neoplasm of breast / Repository Z12.31(ICD-10) 04/24/2018 Active Myalgia, unspecified NA Active [place] site / Clinic Main M79.10(ICD-10) [place] Repository 04/24/2018 Active Paresthesia of skin NA Active [place] / R20.2(ICD-10) Clinic Main [place] Repository 01/17/2018 Active 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 / [place] Z79.899(ICD-10) Repository 01/02/2018 Admitting Unknown / SARTHAK, Active [place] General diagnosis UNK(Unknown) [facility] Repository 12/09/2017 Active Sprain of other NA Active [place] ligament of right Clinic Main ankle, initial [place] encounter / Repository S93.491A(ICD-10) 11/02/2017 Unknown S93.409A - Sprain of Ungur, Remus Active [place] unspecified ligament Community of unspecified Hospital ankle, initial Repository encounter / S93.409A(ICD-10) 06/25/2016 Active Type 2 diabetes NA Active [place] mellitus with Clinic Main diabetic nephropathy [place] / E11.21(ICD-10) Repository 06/27/2015 Active Essential (primary) NA Active [place] hypertension / Clinic Main I10(ICD-10) [place] Repository 04/23/2015 Active Type 2 diabetes NA Active [place] mellitus with Clinic Main hyperglycemia / [place] E11.65(ICD-10) Repository 04/23/2015 Active Type 2 diabetes NA Active [place] 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[place] complication / Repository E11.39(ICD-10) 04/23/2015 Active Glaucoma in diseases NA Active [place] classified elsewhere Clinic Main / H42(ICD-10) [place] Repository 02/08/2007 Active Pure NA Active [place] hypercholesterolemia Clinic Main , unspecified / [place] E78.00(ICD-10) Repository 08/26/2017 Active 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, [facility]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 / [place] H47.019(ICD-10) Repository 08/04/2017 Active Unknown / ABRAAHN GALVAN Active [place] UNK(Unknown) D Clinic Main [place] Repository PROCEDURES PROCEDURES No Procedure Records FoundRESULTS RESULTS CR - HISTORY AND Observed: 07/25/2018 Status: F Source: [place] PHYSICAL 12:53 PM [facility] REPOSITORY [facility] Cardiac Rehab [address] [place] [address] CR - History AND Physical MR#: [id number] Acct: [id number] Name: TORI LORD Rep #: [id number] : 1950 67 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 Mcdowell Primary Diagnosis: PTCA PCI w/coronary stent placement, nstemi - History of Present Cardiac Event Onset Date: Enter Onset Date of cardiac illnesses in Comment field below Acute Myocardial Infarction within 12 months:: Yes - NSTEMI PTCA or coronary stenting:: Yes - 06/23/18, repeat procedure 07/29/2018 for added stent placement Heart or Heart-Lung Transplant:: No Heart Failure EF <35%:: No Type of Symptoms:: tired, hard to walk, shortness of breath when walking, pressure on the right side of chest, blood pressure were very high, was actually in the doctors office for the elevated blood pressure sent to hospital. Interventions with present event:: heart cath, stent placement Were there any complications?: still had to work through soem issues but overall did okay. - Medications Home Medications: Ambulatory Orders Medication Instructions Recorded insulin aspart U- 100 100 unit/mL 10 unit SC TIDCM ml 07/26/17 subcutaneous pen Insulin Detemir [Levemir FlexPen] 10 units SQ QHS 06/22/18 - Allergies Allergies/Adverse Reactions: Allergies metformin Allergy (Verified 07/21/18 12:22) Unknown - Sleep Disorder Evaluation Hx of Sleep Apnea: No Do you snore loudly (louder than talking or can be heard through closed doors)?: Yes Do you often feel tired/ fatigued/ sleepy during daytime?: Yes - frequently nods off in the chair Has anyone observed you stop breathing during sleep?: No History of Hypertension (for STOP score): Yes STOP Results: Positive Advanced Directives - Advanced Directives Power of Director Safety Council: Yes Living Will: Yes Advance Directives Information Provided: No Advance Directives on File: Yes DNR Order?:: No - MOLST See MOLST form: No Past Medical History - Past Medical Illness Medical History: Past Medical History (Last Reviewed 07/21/18 @ 14:13 by Sylvain Mcdowell MD) Non-ST elevation (NSTEMI) myocardial infarction (Resolved) Onset Date: 06/22/18 I21.4 Acute diastolic (congestive) heart failure (Acute) I50.31 Atherosclerosis of coronary artery of [place] heart without angina pectoris (Chronic) I25.10 KVA-TGB-Mjzr LAD w/ a 3.0 x 38 mm Synergy Stent 06/23/18 Essential (primary) hypertension (Chronic) I10 Hyperlipidemia (Chronic) E78.5 Anxiety F41.9 Back problem M53.9 Corneal injury S05.8X9A Diabetes type 2, controlled E11.9 Dx : 1997 Last exacerbation : DKA : never Hypoglycemic episode : never ER visit : never Hepatitis K75.9 Right wrist pain M25.531 - Past Surgical History Surgical History: Past Surgical History (Last Reviewed 07/21/18 @ 14:13 by Sylvain Mcdowell MD) History of coronary artery stent placement (Resolved) Onset Date: 06/23/18 Z95.5 QAX-FOU-Tcpu LAD w/ a 3.0 x 38 mm Synergy Stent 06/23/18 History of total abdominal hysterectomy Z98.890, Z90.710 S/P colonoscopy Z98.890 Surgical History: hysterectomy - Family History Summary Family History: Family History (Last Reviewed 07/21/18 @ 14:13 by Sylvain Mcdowell MD) Mother Arthritis Father Arthritis Social History - Smoking History Smoking Status: Former smoker Years Smokin Packs Smoked per Day: 0.5 Hx Smoking Cessation Date: 20 years ago. Hx Tobacco Use: No Hx Smoking Exposure: No - Alcohol Use Alcohol Usage: No - Substance Abuse Hx Substance Use: No - Occupation Occupation (List type of work in comments):: Retired - Hobbies, Recreation, Social Activities Hobbies: Other - kylie foods, yard work gardening, flower beds. Recreational Activities: I am able to engage in most, but not all activities - has to do them slower and in smaller quantity Social Environment - Status Marital Status: - Current Living Arrangements Living Environment:: Spouse - Children How many children do you have?: 5 - 3 step children Do any of your children live nearby?: No - [place] and [place] - Safety Do you feel safe in your surroundings?: Yes - Assistance Do you need any assistance at home?: yes; has a rn home care that comes to help with heavy housework. Review of Systems - Review of Systems Hints: Right click = Denies (Slash). Left click = Reports ([place]) Review of Present Symptoms: Reports: Shortness of Breath with Exertion - if getting up and to heavy activity, can't work to fast or walk to fast., Fatigue, Appetite - Normal, Appetite - Special Diet - Diabetic diet, low fat, low carb, no salt diet., Sleep - Normal. Denies: Shortness of Breath at Rest, Angina, Dizziness/Lightheadedness, Heart Arrhythmia/Irregularities, Sexual Changes - Pain Is Patient Pain Free?: Yes Pain Location: none Pain Level: 0/10 Risk Factor Assessment - Chief Complaint Chief Complaint: Patient presents to cardiac rehab today following recent NSTEMI and PCI w/coronary stent placement. She is scheduled tuesdayJul 29 for an additional stent placement by Dr. Calero. We will postpone her starting her cardiac rehab for two more weeks to allow for proper recovery from the intervention this tuesday. - Vital Signs Temperature: 98.7 F Respiratory Rate: 16 Pulse Ox: 96 Blood Pressure: 172/68 Nailbeds:: pink - Pulse Pulse Rate: 80 Pulse Rhythm: Regular - Hypertension How long have you been treated?: 1999 On medication(s)?: yes Blood Pressure Sitting - Left Arm: 172/68 - Stress Stress: Recent - Blood Cholesterol/Lipids HDL Cholesterol (mg/dL) Goal = less than 40 mg/dL: 58 LDL Cholesterol (mg/dL) Goal = less than 70 mg/dL: 132 Triglycerides (mg/dL) Goal = less than 150 mg/dL: 126 - Diabetes Diabetic History: Type II, Insulin Dependent Nutrition Referral for Diabetes: Yes - Obesity Height: 5 ft 1 in Weight:: 177 lb Weight in Pounds: 177.0 lbs Weight Source: Estimated by Patient Body Mass Index (BMI): 33.4 Realistic Weight Goal (Loss of 1-2 lbs/week): 165 Nutritional Referral for Obesity: Yes - Physical Inactivity Physical Inactivity: None - Risk Stratification Risk Guidelines: Lowest Risk: Risk Factor for Smoking, Risk Factor for Depression, Moderate Risk: Risk Factor for Dyslipidemia, Risk Factor for Diabetes, Risk Factor for Hypertension, Highest Risk: Risk Factor for Obesity, Risk Factor for Sedentary Lifestyle - For Smoking Smoking Risk Guidelines: Smoking Low Risk: None or quit greater than 6 months ago. Smoking Moderate Risk: Smoker or quit 6 months or less ago. Smoking High Risk: Smoker - For Dyslipidemia Dyslipidemia Risk Guidelines: Low Risk: Moderate Risk: High Risk: 15-25% fat 25.1-29% fat >/= 30% fat. <7% sat fat 7-9% sat fat >9% sat fat. <150 mg chol 150-299 mg chol >/= 300 mg chol. LDL <100 LDL 100-129 LDL >/= 130. Chol/HDL ratio <5.0 Chol/HDL ratio 5.0-6.0 Chol/HDL ratio >6.0. Triglycerides <100 Triglycerides 100-149 Triglycerides >/= 150 - For Diabetes Mellitus Diabetes Risk Guidelines: Diabetes Low Risk: HgA1c <6.5% and/or FBG <120. Diabetes Moderate Risk: HgA1c 6.6-7.9% and/or FBG 120- 180. Diabetes High Risk: HgA1c >/= 8% and/or FBG >180 - For Obesity/Overweight Obesity/Overweight Risk Guidelines: Obesity Low Risk: BMI <25.0. Obesity Moderate Risk: BMI 25-29.9. Obesity High Risk: BMI >/= 30.0 - For Hypertension Hypertension Risk Guidelines: Hypertension Low Risk: Systolic <120 and Diastolic <80. Hypertension Moderate Risk: Systolic 120-139 and Diastolic 80-89. Hypertension High Risk: Systolic >/= 140 and Diastolic >/= 90 - For Sedentary Lifestyle Sedentary Lifestyle Risk Guidelines: Sedentary Lifestyle Low Risk: >/= 1,500 kcal/week. Sedentary Lifestyle Moderate Risk: 700-1,499 kcal/week. Sedentary Lifestyle High Risk: < 700 kcal/week - For Depression Depression Risk Guidelines: Depression Low Risk: Not clinically depressed. Depression Moderate Risk: Mildly depressed. Depression High Risk: Clinically depressed - Family History Family History: Family History (Last Reviewed 07/21/18 @ 14:13 by Sylvain Mcdowell MD) Mother Arthritis Father Arthritis Motivation - Motivation to Participate On a scale of 1 to 10, how prepared are you to commit to attending program?: 10 - 100% What do you see as barriers to successfully being able to complete the program?: none; is on dialysis and conflict with his treatment What do you see as the benefits of succesfully completing the program? In other words, what do you hope to get out of participating in the program?: being able to move again, do things I am used to doing again. Are there issues you are dealing with that will interfere with completing the program?: none Do you have a spouse or signficant other, family or friends who will help support you to complete the program?: yes; locally support of friends and family to help. 07/25/18 1105 <Electronically signed by Ag Ortega CRT, RCP, BS> Date Ag Ortega CRT, RCP, BS Outcome assessment reviewed. Exercise plan approved as documented. Treatment plan and goals support patient needs/abilities. Continue with current plan. I certify the patient demonstrates improvement and remains willing and capable of participation. the patient continues to benefit from cardiac rehab services/training. The patient may continue at current intensity, endurance and modality and progress per protocol. 07/25/18 1253 <Electronically signed by Sylvain Mcdowell MD> Cosigner Signature: Date Sylvain Mcdowell MD CC: Signed BASIC METABOLIC Collected: 07/21/2018 Status: F Source: [place] PROFILE (BMP) 3:08 PM [facility] REPOSITORY TYPE CODE TESTS RESULT OUT OF RANGE REFERENCE UNITS LAB L501.0100 74-106 mg/dL High GLU 118 Result Comment: Fasting Glucose result from 100 to 125 mg/dL suggests IMPAIRED HOMEOSTASIS per A.D.A. criteria. Please note revised GLUCOSE reference range effective 2017. LAB L501.1000 7-18 mg/dL Normal BUN 17 LAB L501.1100 0.55-1.02 mg/dL Normal CREAT,SERUM 0.98 Result Comment: The validity of the calculated GFR AND GFRAA in patients over 70 years has not been determined. Clinical correlation is essential. LAB L501.1110 >60 mL/min Normal EST GFR 60 Result Comment: Non- GFR Calc LAB L501.1115 >60 mL/min Normal EST GFR - AA 72 Result Comment: GFR Calc LAB L501.1300 10-20 RATIO Normal BUN/CRE 17.3 LAB L501.2200 8.5-10.1 mg/dL CA Normal 9.3 LAB L501.5300 136-145 mmol/L NA Normal 141 LAB L501.5600 3.5-5.1 mmol/L K Normal 3.8 LAB L501.5900 98-107 mmol/L CL Normal 104 LAB L501.6100 21.0-32.0 mmol/L Normal CO2 28.0 LAB L501.6200 5-15 Normal GAP 9 Performed By: #### L500.2500 #### [facility] [address] [place], [address] CBC W/DIFF, AUTOMATED Collected: 07/21/2018 Status: F Source: [place] 3:08 PM [facility] REPOSITORY TYPE CODE TESTS RESULT OUT OF RANGE REFERENCE UNITS LAB L100.1000 4.4-11.0 K/mm3 Normal WBC 7.0 LAB L100.1200 4.2-5.4 M/mm3 Normal RBC 5.08 LAB L100.1300 12.0-15.0 g/dl Normal HGB 13.1 LAB L100.1400 37-47 % Normal HCT 41.5 LAB L100.1500 81-99 fL Normal MCV 81.7 LAB L100.1600 27.0-32.0 pg Low MCH 25.8 LAB L100.1700 32-36 g/gl Low MCHC 31.6 LAB L100.1810 11.6-14.6 % Normal RDW CV 14.5 LAB L100.1820 35.1-43.9 fl Normal RDW SD 43.6 LAB L100.1900 150-450 K/mm3 Normal PLT 211 LAB L100.2000 6.2-12.0 fl Normal MPV 11.3 LAB L100.2100 47-70 % Normal NEUT% 56.9 LAB L100.2200 19-41 % Normal LY% 34.8 LAB L100.2300 0-10 % Normal MONO% 5.0 LAB L100.2400 0-5 % Normal EO% 2.0 LAB L100.2500 0-1 % Normal BASO% 0.9 LAB L100.2550 0.0-0.9 % Normal IM GRAN % 0.400 Result Comment: IG% - Immature Granulocytes (promyelocytes, myelocytes and metamyelocytes) > 1% indicates that a LEFT SHIFT is Present. LAB L100.2620 2.0-7.7 X10 3/uL Normal Absolute Neut 4.0 LAB L100.2720 0.83-4.51 X10 3/ul Normal Absolute Lymph 2.42 Performed By: #### L100.0100 #### [facility] [address] [place], [address] CARDIOLOGY VISIT Observed: 07/21/2018 Status: F Source: [place] REPORT 2:22 PM [facility] REPOSITORY [facility] [address] [place] [address] OFFICE VISIT Date of Service: 07/21/18 MR#: [id number] Acct: [id number] Name: TORI LORD Rep #: [id number] : 1950 Provider: Sylvain Mcdowell MD Age/Sex: 67/F Location: [facility] [place] Status: Signed [facility] Chief Complaint: Follow up visit Details: TORI LORD, is a 67 F who presents to the office today for a follow-up evaluation. She had presented to the emergency room with chest discomfort which was recurrent she underwent a cardiac catheterization which demonstrated significant left anterior descending artery stenosis with a long 75% proximal stenosis and a mid 30% stenosis in the circumflex artery with 40% stenosis. The right coronary artery had a 70% stenosis. She underwent angioplasty and stenting with a drug-eluting stent to the left anterior descending artery successfully. She is been doing well she does complain of some cough her blood pressure has also been somewhat erratic. She has had no dizziness or diaphoresis no near syncope or syncope. Her physical exam here today demonstrates clear lung hartley regular rate and rhythm and no pedal edema. Intake Vital Signs07/21/18 Height 5 ft 1 in Intake Visit Reasons: DC 12-16 post PCU/Nba (NEW to [facility] [place]) Allergies metformin Allergy (Verified 07/21/18 12:22) Unknown aspirin [ASA] Adverse Reaction (Verified 07/21/18 12:22) Nausea Medications insulin aspart U- 100 100 unit/mL subcutaneous pen 10 unit SC TIDCM ml 07/26/17 [History Confirmed 07/21/18] Insulin Detemir [Levemir FlexPen] 10 units SQ QHS 06/22/18 [History Confirmed 07/21/18] Insulin Detemir [Levemir FlexPen] 17 units SQ DAILY 06/22/18 [History Confirmed 07/21/18] Nitroglycerin [Nitrostat] 0.4 mg SUBLINGUAL Q5M PRN 06/22/18 [History Confirmed 07/21/18] aspirin 81 mg tablet,delayed release 81 mg PO DAILY@0800 #90 tab 07/21/18 [Rx Confirmed 07/21/18] clopidogrel 75 mg tablet 75 mg PO DAILY #90 tab 07/21/18 [Rx Confirmed 07/21/18] hydrochlorothiazide 12.5 mg capsule 12.5 mg PO DAILY 07/21/18 [History Confirmed 07/21/18] isosorbide mononitrate ER 30 mg tablet,extended release 24 hr 30 mg PO DAILY #90 tab 07/21/18 [Rx Confirmed 07/21/18] metoprolol succinate ER 50 mg tablet,extended release 24 hr 50 mg PO DAILY #90 tab 07/21/18 [Rx Confirmed 07/21/18] nifedipine ER 60 mg tablet,extended release 24 hr 60 mg PO DAILY #90 tab 07/21/18 [Rx Confirmed 07/21/18] simvastatin 20 mg tablet 20 mg PO QHS #90 tab 07/21/18 [Rx Confirmed 07/21/18] [facility] Medical History Non-ST elevation (NSTEMI) myocardial infarction (Resolved 06/22/18) Acute diastolic (congestive) heart failure (Acute) Atherosclerosis of coronary artery of [place] heart without angina pectoris (Chronic) Essential (primary) hypertension (Chronic) Hyperlipidemia (Chronic) Anxiety (Acute) Back problem (Acute) Corneal injury (Acute) Diabetes type 2, controlled (Acute) Hepatitis (Acute) Right wrist pain (Acute) Surgical History History of coronary artery stent placement (Resolved 06/23/18) History of total abdominal hysterectomy (Acute) S/P colonoscopy (Acute) Family History Mother Arthritis Father Arthritis Social History Smoking Status: Former smoker second hand exposure: No alcohol intake: never substance use type: does not use ROS Const Const: Positive for fatigue and weakness; negative for difficulty sleeping, frequent falls, excessive sweating or headache(s) Eyes Eyes: Negative for loss of peripheral vision, transient loss of vision, blurry vision, tunnel vision or double vision ENT ENT: Negative for headache(s), dizziness, Nosebleed/epistaxis or balance problems Cardio Chest Pain: Yes Character: tightness Location: left chest, right chest Duration: brief Palpitations: No Edema: None Muscle aches with walking: None Additional Details: C/O RUE pain s/p heart cath. Right radial pulse 3+ Resp Respiratory: Positive for SOB with activity; negative for SOB at rest, SOB orthopnea\SOB lying down, paroxysmal nocturnal dyspnea or Cough GI GI: Negative nausea, heartburn, black,tarry stools or vomiting : Negative for hematuria Musc Musc: Positive for joint pain (Bilateral hip pain); negative for balance problems, muscle aches/ myalgia or muscle weakness Skin Skin: Negative non-healing lesions, unusual bruising or rash Neuro Neuro: Positive for weakness; negative for frequent falls, headache(s), blurry vision, double vision, dizziness, lightheadedness, orthostatic symptoms, near syncope, syncope or lack of coordination Thanh Hematologic/Lymphatic: Negative for easy bruising or easy bleeding Endo Endo: Positive for fatigue; negative for excessive sweating or increased thirst/drinking Psych Psych: Negative for anxiety or depression Allergy Allergy/Immunology: Negative for hives, Negative for rash Cardiology Exam Const Appearance: cooperative, healthy appearing, well developed, well groomed and no acute distress Nutritional Appearance: well nourished and average body habitus Orientation: alert, awake and oriented x3 Head Head: normal to inspection, normocephalic and atraumatic Ears: hearing grossly normal bilaterally and external ears normal Nose: external nose normal, nasal mucous membranes and turbinates normal, nares normal, septum normal, no nasal discharge Face and Sinus: face symmetric Mouth: oral mucosae normal, tongue normal, oropharynx normal and moist mucous membranes Teeth and gingiva: dentition normal Throat: posterior oropharynx normal, tonsils normal and uvula midline Eyes General: appearance normal, both eyes and all related structures Eyelids: eyelids normal Conjunctivae: conjunctivae normal Pupils: PERRL, normal by confrontation and accommodation normal EOM: EOM intact bilaterally Neck Neck: normal visual inspection, trachea midline and no JVD JVD: +5 Carotids: normal carotid upstroke and bounding pulses Chest Chest inspection: normal inspection of the chest, symmetric chest movement and normal respiratory effort Auscultation: Bilateral: Clear to Auscultation Cardio Palpation: normal PMI Rate: regular rate Rhythm: regular rhythm Heart sounds: S1 normal, S2 normal and normal, physiologic split S2; negative rub, gallop or murmur GI GI: normal to inspection, soft, no hepatosplenomegaly and bowel sounds present Neuro General: alert, awake, oriented x3, no focal sensory deficit, gait normal and moves all extremities Skin Skin: no rashes or lesions noted Extremities Pulses: Normal: Right Femoral Pulse, Left Femoral Pulse, Right Dorsalis Pedis Pulse, Left Dorsalis Pedis Pulse, Right Posterior Tibial Pulse, Left Posterior Tibial Pulse, Right Radial Pulse, Left Radial Pulse Lower Extremity Edema: None: Bilateral Musculoskel Musculoskeletal: No joint tenderness Psych Psychological: normal affect Assessment AND Plan 1. Atherosclerosis of coronary artery of [place] heart without angina pectoris I25.10 [id number] LAD w/ a 3.0 x 38 mm Synergy Stent 06/23/18 Plan She does have a history of atherosclerotic cardiovascular disease. She has had previous stenting of the LAD and needs to have the right coronary artery stented. She will be brought in electively to have the above done she will continue on her calcium channel ramón nitrates aspirin and clopidogrel. I would like us to metoprolol 50 mill grams a day long-acting. Orders Orders: 2. Essential (primary) hypertension I10 Plan She does have a history of hypertension which is not well controlled on the current medical therapy. My recommendation is for her to continue the same medications with addition of Toprol-XL to her regimen. 3. Mixed hyperlipidemia E78.5 Plan She does have a history of mixed hyperlipidemia and will remain on her medium intensity statin at this time. 4. Acute diastolic (congestive) heart failure I50.31 Plan She does have mild diastolic dysfunction noted. I suspect this is also on the basis of her hypertension. I would recommend that she remain on the diuretic with the hydrochlorothiazide. Thank you for allowing me to participate in the care of your patient. Please don't hesitate to call if any issues arise Plan Detail Other Orders Orders: Other Medications New: Refilled: Discontinued: Follow Up 3 Months (mmm) Coding Level of Care Code Off vis,est,level 4 Diagnoses Atherosclerosis of coronary artery of [place] heart without angina pectoris I25.10 Essential (primary) hypertension I10 Mixed hyperlipidemia E78.5 Acute diastolic (congestive) heart failure I50.31 Coding Level of Care Code Off vis,est,level 4 Diagnoses Atherosclerosis of coronary artery of [place] heart without angina pectoris I25.10 Essential (primary) hypertension I10 Mixed hyperlipidemia E78.5 Acute diastolic (congestive) heart failure I50.31 Supplemental Info Supplemental Information Labs LDL Cholesterol 132 mg/dL (0-130) H 06/16/18 HDL Cholesterol 58 mg/dL (40-) 06/16/18 Triglycerides 126 mg/dL (-199) 06/16/18 VLDL Cholesterol 25 mg/dL (5-40) 06/16/18 Diagnostics Electrocardiogram 06/25/18 Stress Test Nuclear Medicine 06/16/18 Stress Test 06/16/18 Cardiac Catheterization 06/23/18 Chest X-Ray 06/22/18 07/21/18 1422 <Electronically signed by Sylvain Mcdowell MD> Date Sylvain Mcdowell MD Cosigner Signature: Date (if applicable) CC: Abrahan Galvan MD 12 LEAD EKG PERFORMED Observed: 07/21/2018 Status: F Source: [facility] [place] 2:22 PM [facility] REPOSITORY [facility] [address] [id number] 12 Lead EKG performed by BMS 07/21/18 142 MR#: [id number] Acct: [id number] Name: TORI LORD Rep #: [id number] : 1950 67 From: Sylvain Mcdowell MD Attending Dr: Sylvain Mcdowell MD Status: DEP AMB Ordering Dr: Sylvain Mcdowell MD Date: 07/21/18 [place] [facility] [place]: F AA Admitted: BMS/12 Lead EKG performed by [facility] ECG Report Interpretation Sinus Rhythm - Nonspecific T-abnormality. ABNORMAL Electronically signed on 08/01/2018 at 13:19 by Sylvain Mcdowell [employer] Version [id number] 08/01/18 1324 Date Sylvain Mcdowell MD CC: Abrahan Galvan MD Date Dictated: 07/21/181421 Date Transcribed: 07/21/181421 Delivery Stock Clerk: [place] Signed PROGRESS Observed: 06/29/2018 Status: COMPLETED Source: [place] 12:44 PM [facility] REPOSITORY HNO ID: [id number] Author: Rocio Morris [facility] Service: (none) Author Type: Registered Nurse Type: Progress Notes Filed: 06/29/2018 4:04 PM Note Text: PRIMARY CARE COORDINATION IN OFFICE VISIT WITH PCP Patient has been identified by name and date of . PCP Assessment/Plan: Reviewed PCP plan with patient using Teach Back Pt is doing well. Still w/fatigue and she is trying to rest. is on dialysis and he expects her to do a great deal for him. PCC Plan of Care: Patient concerns: He BP elevated, tho she is more concerned about her . She said she will go home and rest. Patient goals: to regain strength and ability to get around. PCC Interventions: Pt agreed to MoW every day for she and her so today was the first day and worked out very well for them. She will continue as long as she feels she needs it. Next Office Visit: 07/25/2018 Plan For Next Call: 2 wks. Rocio Hampton fusion analyst Sewage Disposal Worker Internal Medicine [facility] June 29, 2018 PROGRESS Observed: 06/29/2018 Status: COMPLETED Source: [place] 12:34 PM [facility] [place] REPOSITORY O ID: [id number] Author: Young Mcintosh (Cns) Service: (none) Author Type: Nurse Specialist Type: Progress Notes Filed: 06/29/2018 1:19 PM Note Text: Transitional Care Management Progress Note The patients TCM visit was performed within the 7 days of discharge. Patient's Date of discharge: June 25, 2018 Date of initial coordinator contact after discharge: June 27, 2018 Discharge diagnosis: Acute non-STEMI with stents placed in the LAD and RCA Medication review completed Yes Young Mcintosh, REFRIGERATION HOUSEMAN.BROACHING MACHINE SET UP OPERATOR Provider Documentation: In follow-up of hospitalization, Tori Lord is a 67 year old female with the chief complaint of acute non-STEMI with stents placed in the LAD and RCA I have reviewed the patient?s last hospital course including diagnostic testing performed during this hospitalization, their discharge medications, and my assessment and plan with the patient and any family members present at today?s visit. HPI: She was taken by squad to [facility] on May 23, 2018. She was admitted because of chest pain and shortness of breath. She was found to have an acute non-ST elevation AL. She underwent cardiac catheterization and was found to have two-vessel disease of the LAD and RCA. She underwent successful drug-eluting stent placement to the proximal LAD. She was treated with aspirin and Plavix statin labetalol and lisinopril. On arrival blood pressure was elevated. Medication adjustments were made with improvement of blood pressure control. She was started on Procardia XL 60 mg oral daily as well as isosorbide mononitrate. She did have exertional shortness of breath that was attributed to mild acute diastolic heart failure during her admission. She was treated with 1 dose of IV Lasix and was started on oral Lasix. Symptoms continued to improve. She remained without chest pain following her cardiac intervention. Blood pressure remained controlled following medication adjustments. She was discharged home in stable medical condition. Advised follow-up with primary care physician in one week. Recommended to check blood pressure at least twice daily and follow-up with cardiology in 2 weeks. Medications at discharge lisinopril 20 mg oral twice daily, simvastatin 20 mg oral daily, insulin subcutaneous 3 times daily with meals, hydrocodone as needed for pain, labetalol 400 mg oral twice daily, diazepam 2.5 mg oral as needed, Levemir flex pen 10 units subcutaneous daily at bedtime, Pap smear flex pen 17 units subcutaneous daily, Lidoderm patch, sublingual nitroglycerin, aspirin 81 mg oral daily Plavix 75 mg oral daily Lasix 40 mg oral daily Imdur 30 mg oral daily nifedipine 60 mg oral daily. Advised to follow up with [facility] . Has follow up with Dr. De León 08/2017. [facility] 06/25/2018 labs LAB L501.0100 GLU 102 Normal 74-106 mg/dL Result Comment: Fasting Glucose result from 100 to 125 mg/dL suggests IMPAIRED HOMEOSTASIS per A.D.A. criteria. Please note revised GLUCOSE reference range effective 2017. LAB L501.1000 BUN 32 High 7-18 mg/dL LAB L501.1100 CREAT,SERUM 1.40 High 0.55-1.02 mg/dL Result Comment: The validity of the calculated GFR AND GFRAA in patients over 70 years has not been determined. Clinical correlation is essential. LAB L501.1110 EST GFR 40 Low >60 mL/min Result Comment: Non- GFR Calc LAB L501.1115 EST GFR - AA 48 Low >60 mL/min Result Comment: GFR Calc LAB L501.1255 Estimated CRCL 29.02 Normal ? ml/min LAB L501.1300 BUN/CRE 22.9 High 10-20 RATIO LAB L501.2200 CA 8.6 Normal 8.5-10.1 mg/dL LAB L501.5300 NA 144 Normal 136-145 mmol/L LAB L501.5600 K 3.9 Normal 3.5-5.1 mmol/L LAB L501.5900 CL 109 High 98-107 mmol/L LAB L501.6100 CO2 26.0 Normal 21.0-32.0 mmol/L LAB L501.6200 GAP 9 Normal 5-15 ? Presents today feeling improved. No further chest pain. Breathing is improved, decreased shortness of breath. Reports she has been taking all medications as prescribed. She has a July 19 appointment with , cardiac rehab follow up is scheduled at [facility]. Right radial access site for heart catheterization is without bleeding, hematoma, erythema. PAST MEDICAL HISTORY: Reviewed and updated ALLERGIES: Reviewed and updated MEDICATIONS: Reviewed and updated SOCIAL HISTORY: Reviewed and updated FAMILY HISTORY: Reviewed and updated REVIEW OF SYSTEMS: Respiratory system: no cough, no orthopnea, no paroxysmal nocturnal dyspnea Cardiovascular system: No chest pain, palpitations, edema Gastrointestinal system: no abdominal pain, no constipation, no diarrhea Genitourinary system: no dysuria, no hematuria, no stones Endocrine system: diabetes mellitus Neurologic system: no syncope, no dizziness All other systems reviewed and negative, other than HPI. PHYSICAL EXAMINATION BP 160/72 Pulse 80 Resp 16 General appearance: Well appearing, alert, in no acute distress, well-hydrated, well nourished. Lungs: clear to auscultation no wheezing or rhonchi Heart: RRR without murmur, gallop, or rubs. No ectopy Abdomen: Abdomen soft, non-tender. Bowel sounds normal. No masses, organomegaly Extremities: No deformities, edema, skin discoloration, clubbing or cyanosis. Good capillary refill. normal right radial pulse without hematoma or erythema or warmth at the heart catheterization access site 1. I have reviewed the patient record including associated test results during the last hospitalization Yes 2. I have reviewed Lab test Yes 3. I have reviewed Radiology test Yes 4. I reviewed assessment/plan with the patient/family member Yes ASSESSMENT/PLAN 1. 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 NSTEMI (non-ST elevated myocardial infarction) (HCC) - ICD9: 410.70, ICD10: I21.4 3. S/P coronary artery stent placement - ICD9: V45.82, ICD10: Z95.5 4. ACS (acute coronary syndrome) (HCC) - ICD9: 411.1, ICD10: I24.9 5. Hypertension, uncontrolled - ICD9: 401.9, ICD10: I10 Continue with aspirin and Plavix and statin BP is improved control, not yet at target. Well healed at cath site No current CP or shortness of breath Has scheduled follow up with price lister and Dr. Sarthak Mcintosh APRN.CNS June 29, 2018 12:34 PM CNOV Observed: 06/29/2018 Status: COMPLETED Source: [place] 12:20 PM [facility] REPOSITORY Office Visit (INTMWS) TORI LORD ([id number]) 1950 F Date Time Provider Department 06/29/18 12:20 PM YOUNG MCINTOSH (RAMONITA) INTMWS During your visit today, we recorded the following information about you: Pulse Respiration Blood pressure 80/minute 16/minute 160/72 Young Mcintosh APRN.CNS 06/29/2018 1:19 PM Signed Transitional Care Management Progress Note The patients TCM visit was performed within the 7 days of discharge. Patient's Date of discharge: June 25, 2018 Date of initial coordinator contact after discharge: June 27, 2018 Discharge diagnosis: Acute non-STEMI with stents placed in the LAD and RCA Medication review completed Yes Young Mcintosh APRN.CNS Provider Documentation: In follow-up of hospitalization, Tori Dae Lord is a 67 year old female with the chief complaint of acute non-STEMI with stents placed in the LAD and RCA I have reviewed the patient?s last hospital course including diagnostic testing performed during this hospitalization, their discharge medications, and my assessment and plan with the patient and any family members present at today?s visit. HPI: She was taken by squad to [facility] on May 23, 2018. She was admitted because of chest pain and shortness of breath. She was found to have an acute non-ST elevation AL. She underwent cardiac catheterization and was found to have two-vessel disease of the LAD and RCA. She underwent successful drug-eluting stent placement to the proximal LAD. She was treated with aspirin and Plavix statin labetalol and lisinopril. On arrival blood pressure was elevated. Medication adjustments were made with improvement of blood pressure control. She was started on Procardia XL 60 mg oral daily as well as isosorbide mononitrate. She did have exertional shortness of breath that was attributed to mild acute diastolic heart failure during her admission. She was treated with 1 dose of IV Lasix and was started on oral Lasix. Symptoms continued to improve. She remained without chest pain following her cardiac intervention. Blood pressure remained controlled following medication adjustments. She was discharged home in stable medical condition. Advised follow-up with primary care physician in one week. Recommended to check blood pressure at least twice daily and follow-up with cardiology in 2 weeks. Medications at discharge lisinopril 20 mg oral twice daily, simvastatin 20 mg oral daily, insulin subcutaneous 3 times daily with meals, hydrocodone as needed for pain, labetalol 400 mg oral twice daily, diazepam 2.5 mg oral as needed, Levemir flex pen 10 units subcutaneous daily at bedtime, Pap smear flex pen 17 units subcutaneous daily, Lidoderm patch, sublingual nitroglycerin, aspirin 81 mg oral daily Plavix 75 mg oral daily Lasix 40 mg oral daily Imdur 30 mg oral daily nifedipine 60 mg oral daily. Advised to follow up with [facility] . Has follow up with Dr. De León 08/2017. [facility] 06/25/2018 labs LAB L501.0100 GLU 102 Normal 74-106 mg/dL Result Comment: Fasting Glucose result from 100 to 125 mg/dL suggests IMPAIRED HOMEOSTASIS per A.D.A. criteria. Please note revised GLUCOSE reference range effective 2017. LAB L501.1000 BUN 32 High 7-18 mg/dL LAB L501.1100 CREAT,SERUM 1.40 High 0.55-1.02 mg/dL Result Comment: The validity of the calculated GFR AND GFRAA in patients over 70 years has not been determined. Clinical correlation is essential. LAB L501.1110 EST GFR 40 Low >60 mL/min Result Comment: Non- GFR Calc LAB L501.1115 EST GFR - AA 48 Low >60 mL/min Result Comment: GFR Calc LAB L501.1255 Estimated CRCL 29.02 Normal ? ml/min LAB L501.1300 BUN/CRE 22.9 High 10-20 RATIO LAB L501.2200 CA 8.6 Normal 8.5-10.1 mg/dL LAB L501.5300 NA 144 Normal 136-145 mmol/L LAB L501.5600 K 3.9 Normal 3.5-5.1 mmol/L LAB L501.5900 CL 109 High 98-107 mmol/L LAB L501.6100 CO2 26.0 Normal 21.0-32.0 mmol/L LAB L501.6200 GAP 9 Normal 5-15 ? Presents today feeling improved. No further chest pain. Breathing is improved, decreased shortness of breath. Reports she has been taking all medications as prescribed. She has a July 19 appointment with , cardiac rehab follow up is scheduled at [facility]. Right radial access site for heart catheterization is without bleeding, hematoma, erythema. PAST MEDICAL HISTORY: Reviewed and updated ALLERGIES: Reviewed and updated MEDICATIONS: Reviewed and updated SOCIAL HISTORY: Reviewed and updated FAMILY HISTORY: Reviewed and updated REVIEW OF SYSTEMS: Respiratory system: no cough, no orthopnea, no paroxysmal nocturnal dyspnea Cardiovascular system: No chest pain, palpitations, edema Gastrointestinal system: no abdominal pain, no constipation, no diarrhea Genitourinary system: no dysuria, no hematuria, no stones Endocrine system: diabetes mellitus Neurologic system: no syncope, no dizziness All other systems reviewed and negative, other than HPI. PHYSICAL EXAMINATION BP 160/72 Pulse 80 Resp 16 General appearance: Well appearing, alert, in no acute distress, well-hydrated, well nourished. Lungs: clear to auscultation no wheezing or rhonchi Heart: RRR without murmur, gallop, or rubs. No ectopy Abdomen: Abdomen soft, non-tender. Bowel sounds normal. No masses, organomegaly Extremities: No deformities, edema, skin discoloration, clubbing or cyanosis. Good capillary refill. normal right radial pulse without hematoma or erythema or warmth at the heart catheterization access site 1. I have reviewed the patient record including associated test results during the last hospitalization Yes 2. I have reviewed Lab test Yes 3. I have reviewed Radiology test Yes 4. I reviewed assessment/plan with the patient/family member Yes ASSESSMENT/PLAN 1. 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 NSTEMI (non-ST elevated myocardial infarction) ([facility]) - ICD9: 410.70, ICD10: I21.4 3. S/P coronary artery stent placement - ICD9: V45.82, ICD10: Z95.5 4. ACS (acute coronary syndrome) ([facility]) - ICD9: 411.1, ICD10: I24.9 5. Hypertension, uncontrolled - ICD9: 401.9, ICD10: I10 Continue with aspirin and Plavix and statin BP is improved control, not yet at target. Well healed at cath site No current CP or shortness of breath Has scheduled follow up with price lister and Dr. Sarthak Mcintosh APRN.BROACHING MACHINE SET UP OPERATOR June 29, 2018 12:34 PM Young Mcintosh APRN.BROACHING MACHINE SET UP OPERATOR 06/29/2018 12:57 PM Signed Check labs before next visit Referring Provider: MANDO DAVENPORT ([facility]) [[id number]] Allergies As of Date: 06/29/2018 Noted Allergy Reaction BENTYL (DICYCLOMINE) 12/30/2016 1 - Mental Status Change Comments: difficulty thinking Caused her to take extra insulin because did not remember taking it BYETTA (EXENATIDE) 01/03/2012 8 - GI Upset CYCLOBENZAPRINE 06/28/2011 14 - Other: See Comments Comments: Vaginal itich DOXYCYCLINE 03/22/2013 11 - Vomiting METFORMIN 03/31/2005 8 - GI Upset NEURONTIN (GABAPENTIN) 10/14/2006 5 - Intolerance Comments: bad dreams NSAIDS (NON-STEROIDAL ANTI-INFLAM*10/23/2007 8 - GI Upset Comments: Avoids all NSAIDs because upsets her stomach Date Reviewed: 06/29/2018 Reviewed by: Karen Pena LPN - Fully Assessed Reason for Visit: Hospital F/U [57] Primary Visit Diagnosis: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) [E11.65, E11.39, H42] Other Visit Diagnoses:NSTEMI (non-ST elevated myocardial infarction) ([facility]) [I21.4] S/P coronary artery stent placement [Z95.5] ACS (acute coronary syndrome) ([facility]) [I24.9] Hypertension, uncontrolled [I10] Prescriptions as of 06/29/2018 Sig: ASPIRIN 81 MG TABLET,DELAYED * Take 81 mg by mouth once maricarmen* CLOPIDOGREL 75 MG TABLET Take 1 tablet by mouth once d* DIAZEPAM 5 MG TABLET Take 0.5-1 tablets by mouth o* FUROSEMIDE 40 MG TABLET Take 1 tablet by mouth once d* HYDROCODONE 7.5 MG-ACETAMINOP* Take 1-2 tablets by mouth onc* INSULIN ASPART U-100 100 UNI* Inject 10 Units subcutaneousl* INSULIN DETEMIR (U-100) 100 U* Inject 16 units subcutaneousl* Patient taking differently: Inject 17 units subcutaneousl* PEN NEEDLE, DIABETIC 31 GAUGE* 1 Each four times daily. ISOSORBIDE MONONITRATE ER 30 * Take 1 tablet by mouth once d* LABETALOL 200 MG TABLET Take 1 tablet by mouth twice * Patient taking differently: Take 400 mg by mouth twice da* * FINGERSTIX LANCETS use as directed LIDOCAINE 5 % TOPICAL PATCH Apply 1 Patch as directed norbert* LISINOPRIL 20 MG TABLET Take 1 tablet by mouth twice * NIFEDIPINE ER 60 MG TABLET,EX* Take 1 tablet by mouth once d* NITROGLYCERIN 0.4 MG SUBLINGU* Dissolve 1 tablet under the t* SIMVASTATIN 20 MG TABLET Take 1 tablet by mouth daily * ACYCLOVIR 5 % TOPICAL CREAM Apply 1 application to affect* BLOOD SUGAR DIAGNOSTIC STRIPS Test blood sugar(s) 3 to 4 ti* CICLOPIROX 8 % TOPICAL SOLUTI* Apply 1 application to affect* CODEINE 10 MG-GUAIFENESIN 100* Take 5-10 mL by mouth four ti* Patient not taking: Reported on 04/24/2018 DICLOFENAC EPOLAMINE 1.3 % TR* Apply 1 application to affect* HYDROCHLOROTHIAZIDE 12.5 MG C* Take daily Patient not taking: Reported on 06/29/2018 [id number] 3* TRIAMCINOLONE ACETONIDE 0.5 %* Apply 1 application to affect* Patient not taking: Reported on 06/29/2018 Problem List As Of Date 06/29/2018 Noted Resolved TRIGGER FINGER [M65.30] INVALID FOR* More... Essential hypertension [I10] INVALID FOR* More... Esophageal reflux [K21.9] INVALID FOR*01/31/2013 More... ALLERGIC RHINITIS NOS [J30.9] INVALID FOR* PERS HX OF DISEASES NEC [V13.8] INVALID FOR* More... TENOSYNOV HAND/WRIST NEC [M65.849, M65.839] INVALID FOR* JOINT CONTRACTURE-HAND [M24.549] INVALID FOR* Coronary atherosclerosis [I25.10] INVALID FOR* More... 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 Acute back pain with sciatica [M54.40] INVALID FOR* More... 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 NSTEMI (non-ST elevated myocardial infarction) *INVALID FOR* S/P coronary artery stent placement [Z95.5] INVALID FOR* More... Other instructions from your clinician: Check labs before next visit Follow-up and Disposition History Recorded Encounter Status:Closed by YOUNG WEINBERG on 06/29/18 ZACKERY Observed: 06/29/2018 Status: COMPLETED Source: [place] 12:00 AM [facility] REPOSITORY Patient Outreach (INTMWS) TORI LORD ([id number]) 1950 F Date Time Provider Department 06/29/18 ROCIO PEREZ During your visit today, we recorded the following information about you: Rocio Morris RN 06/29/2018 4:04 PM Signed PRIMARY CARE COORDINATION IN OFFICE VISIT WITH PCP Patient has been identified by name and date of . PCP Assessment/Plan: Reviewed PCP plan with patient using [employer] Pt is doing well. Still w/fatigue and she is trying to rest. is on dialysis and he expects her to do a great deal for him. PCC Plan of Care: Patient concerns: He BP elevated, tho she is more concerned about her . She said she will go home and rest. Patient goals: to regain strength and ability to get around. PCC Interventions: Pt agreed to MoW every day for she and her so today was the first day and worked out very well for them. She will continue as long as she feels she needs it. Next Office Visit: 07/25/2018 Plan For Next Call: 2 wks. 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 Worker Internal Medicine [facility] June 29, 2018 Allergies As of Date: 06/29/2018 Noted Allergy Reaction BENTYL (DICYCLOMINE) 12/30/2016 1 - Mental Status Change Comments: difficulty thinking Caused her to take extra insulin because did not remember taking it BYETTA (EXENATIDE) 01/03/2012 8 - GI Upset CYCLOBENZAPRINE 06/28/2011 14 - Other: See Comments Comments: Vaginal itich DOXYCYCLINE 03/22/2013 11 - Vomiting METFORMIN 03/31/2005 8 - GI Upset NEURONTIN (GABAPENTIN) 10/14/2006 5 - Intolerance Comments: bad dreams NSAIDS (NON-STEROIDAL ANTI-INFLAM*10/23/2007 8 - GI Upset Comments: Avoids all NSAIDs because upsets her stomach Date Reviewed: 06/29/2018 Reviewed by: Karen Pena LPN - Fully Assessed 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] Prescriptions as of 06/29/2018 Sig: ACYCLOVIR 5 % TOPICAL CREAM Apply 1 application to affect* ASPIRIN 81 MG TABLET,DELAYED * Take 81 mg by mouth once maricarmen* BLOOD SUGAR DIAGNOSTIC STRIPS Test blood sugar(s) 3 to 4 ti* CICLOPIROX 8 % TOPICAL SOLUTI* Apply 1 application to affect* CLOPIDOGREL 75 MG TABLET Take 1 tablet by mouth once d* CODEINE 10 MG-GUAIFENESIN 100* Take 5-10 mL by mouth four ti* Patient not taking: Reported on 04/24/2018 DIAZEPAM 5 MG TABLET Take 0.5-1 tablets by mouth o* DICLOFENAC EPOLAMINE 1.3 % TR* Apply 1 application to affect* FUROSEMIDE 40 MG TABLET Take 1 tablet by mouth once d* HYDROCHLOROTHIAZIDE 12.5 MG C* Take daily Patient not taking: Reported on 06/29/2018 HYDROCODONE 7.5 MG-ACETAMINOP* Take 1-2 tablets by mouth onc* INSULIN ASPART U-100 100 UNI* Inject 10 Units subcutaneousl* INSULIN DETEMIR (U-100) 100 U* Inject 16 units subcutaneousl* Patient taking differently: Inject 17 units subcutaneousl* PEN NEEDLE, DIABETIC 31 GAUGE* 1 Each four times daily. ISOSORBIDE MONONITRATE ER 30 * Take 1 tablet by mouth once d* LABETALOL 200 MG TABLET Take 1 tablet by mouth twice * Patient taking differently: Take 400 mg by mouth twice da* * FINGERSTIX LANCETS use as directed LIDOCAINE 5 % TOPICAL PATCH Apply 1 Patch as directed norbert* LISINOPRIL 20 MG TABLET Take 1 tablet by mouth twice * [id number] 3* NIFEDIPINE ER 60 MG TABLET,EX* Take 1 tablet by mouth once d* NITROGLYCERIN 0.4 MG SUBLINGU* Dissolve 1 tablet under the t* SIMVASTATIN 20 MG TABLET Take 1 tablet by mouth daily * TRIAMCINOLONE ACETONIDE 0.5 %* Apply 1 application to affect* Patient not taking: Reported on 06/29/2018 Problem List As Of Date 06/29/2018 Noted Resolved TRIGGER FINGER [M65.30] INVALID FOR* More... Essential hypertension [I10] INVALID FOR* More... Esophageal reflux [K21.9] INVALID FOR*01/31/2013 More... ALLERGIC RHINITIS NOS [J30.9] INVALID FOR* PERS HX OF DISEASES NEC [V13.8] INVALID FOR* More... TENOSYNOV HAND/WRIST NEC [M65.849, M65.839] INVALID FOR* JOINT CONTRACTURE-HAND [M24.549] INVALID FOR* Coronary atherosclerosis [I25.10] INVALID FOR* More... 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 Acute back pain with sciatica [M54.40] INVALID FOR* More... 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 NSTEMI (non-ST elevated myocardial infarction) *INVALID FOR* S/P coronary artery stent placement [Z95.5] INVALID FOR* More... Encounter Status:Closed by ROCIO HAMPTON on 06/29/18 12 LEAD ELECTROCARDIOGRAM Observed: 06/28/2018 Status: F Source: [place] 4:04 PM [facility] REPOSITORY [facility] Cardiovascular Services [address] [place] [id number] 12 Lead EKG 06/23/182033 MR#: [id number] Acct: [id number] Name: TORI LORD Rep #: [id number] : 1950 67 From: Sylvain Mcdowell MD Attending Dr: Samina Alston Status: DIS IN Ordering Dr: Saul Arango MD Date: 06/23/18 Location: [facility] Sex: F AA Admitted: 06/22/18 Test Reason : CHEST PAIN Blood Pressure : / mmHG Vent. Rate : 071 BPM Atrial Rate : 071 BPM P-R Int : 162 ms QRS Dur : 084 ms QT Int : 410 ms P-R-T Axes : 044 002 130 degrees QTc Int : 445 ms Normal sinus rhythm T wave abnormality, consider lateral ischemia Abnormal ECG When compared with ECG of 23-JUN-2018 08:45, MANUAL COMPARISON REQUIRED, DATA IS UNCONFIRMED Confirmed by SYLVAIN MCDOWELL MD ([id number]), assignment desk editor JAMES MULLEN ([id number]) on 06/28/2018 4:04:15 PM Referred By: NBA Confirmed By:SYLVAIN MCDOWELL MD 06/28/18 1606 Date Sylvain Mcdowell MD CC: Saul Arango MD; Samina Alston; Abrahan Galvan MD Signed 12 LEAD ELECTROCARDIOGRAM Observed: 06/28/2018 Status: F Source: [place] 4:03 PM COUNT INCLUDES THE [facility] REPOSITORY [facility] Cardiovascular Services [address] [place] [place] [address] 12 Lead EKG 06/24/18 0515 MR#: [id number] Acct: [id number] Name: TORI LORD Rep #: [id number] : 1950 67 From: Sylvain Mcdowell MD Attending Dr: Samina Alston Status: DIS IN Ordering Dr: Saul Arango MD Date: 06/24/18 Location: [facility] Sex: F AA Admitted: 06/22/18 Test Reason : AM Blood Pressure : / mmHG Vent. Rate : 066 BPM Atrial Rate : 066 BPM P-R Int : 190 ms QRS Dur : 080 ms QT Int : 448 ms P-R-T Axes : 053 -17 130 degrees QTc Int : 469 ms Normal sinus rhythm T wave abnormality, consider lateral ischemia Abnormal ECG Confirmed by SYLVAIN MCDOWELL MD ([id number]), assignment desk editor JAMES MULLEN ([id number]) on 06/28/2018 4:03:06 PM Referred By: DEANNA Confirmed By:SYLVAIN MCDOWELL MD 06/28/18 1609 Date Sylvain Mcdowell MD CC: Saul Arango MD; Samina Galvan MD Signed 12 LEAD ELECTROCARDIOGRAM Observed: 06/28/2018 Status: F Source: [place] 3:59 [facility] Cardiovascular Services [address] [place] [address] 12 Lead EKG 06/25/18 0536 MR#: [id number] Acct: [id number] Name: TORI LORD Rep #: [id number] : 1950 67 From: Sylvain Mcdowell MD Attending Dr: Samina Alston Status: DIS IN Ordering Dr: Saul Arango MD Date: 06/25/18 Location: [facility] Sex: F AA Admitted: 06/22/18 Test Reason : AM EKG Blood Pressure : / mmHG Vent. Rate : 067 BPM Atrial Rate : 067 BPM P-R Int : 186 ms QRS Dur : 082 ms QT Int : 428 ms P-R-T Axes : 052 -17 133 degrees QTc Int : 452 ms Normal sinus rhythm T wave abnormality, consider lateral ischemia Abnormal ECG When compared with ECG of 24-JUN-2018 05:15, MANUAL COMPARISON REQUIRED, DATA IS UNCONFIRMED Confirmed by SYLVAIN MCDOWELL MD ([id number]), assignment desk editor JAMES MULLEN ([id number]) on 06/28/2018 3:59:13 PM Referred By: ROSSY Confirmed By:SYLVAIN MCDOWELL MD 06/28/18 1559 Date Sylvain Mcdowell MD CC: Saul Arango MD; Samina Alston; Abrahan Galvan MD Signed PROGRESS Observed: 06/27/2018 Status: COMPLETED Source: [place] 11:07 AM [facility] REPOSITORY O ID: [id number] Author: Rocio Morris [facility] Service: (none) Author Type: Registered Nurse Type: Progress Notes Filed: 06/27/2018 4:06 PM Note Text: TRANSITION CARE MANAGEMENT (TCM) INITIAL CONTACT Provider Action/FYI: Pt stressed from dialysis problem. He is going daily for shorter periods for now. He has rides there so she can rest while he's gone. Initial contact with patient post discharge, spoke to Tori. Patient identified by name and . TRANSITION CARE MANAGEMENT: Date of Outreach: 06/27/2018 Outreach Attempt 1: Contact Made Date of Discharge 06/25/2018 Some recent data might be hidden SUMMARY: -Pt discharged from [facility] on 06/25/18. -Follow up appointment on 06/29/18 with RAMONITA Isabel. -Medication review done with pt. -Admitted for: HTN, Acute NSTEMI, S/P stents LAD>RCA CONCERNS: Feeling very tired. Had 2 stents put in. Using a walker. She is using meds she rec'd. BSs in hosp 79-109, 122. Checking BP 150/ AM before meds. Needs to check BSs. Has to take care of as well on dialysis, MWF. Had problem with fistula. Has MOW coming on . I convinced her to have it daily at least for now. NEW MEDICATIONS: Plavix 75mg Lasix 40mg daily Imdur 30mg daily Procardia XL 60mg daily ASA 81mg MEDS HELD/DISCONTINUED: HCTZ BRIEF HOSPITAL COURSE: The patient is a 67 year old F admitted because of chest pain and shortness of breath, found to have acute non-ST elevation AL. Patient underwent cardiac catheterization she was found to have two- vessel disease of the LAD and RCA . She underwent successful SIVAN placement to proximal LAD. Patient was treated with aspirin, Plavix, statins, labetalol and lisinopril. Her blood pressure was elevated. Her medication was adjusted. She was started on Procardia XL 60 mg p.o. daily as well as isosorbide mononitrate. Patient did complain of exertional shortness of breath and that was expected to be due to probable mild acute diastolic CHF. She received 1 dose of IV Lasix and she was started on oral Lasix. Her symptoms improved. Patient remained without chest pain after the cardiac intervention. Her blood pressure improved. Patient discharged home in a stable medical condition, discharged on aspirin, Plavix, labetalol, lisinopril, statins and nitrates. Started on Procardia XL for uncontrolled hypertension as well as Lasix recommended to follow-up with PCP in 1 week, recommended to check blood pressure at least twice daily, follow-up with cardiology in 2 weeks. Copied from [facility] D/C summary. CNPTOUTREACH Observed: 06/27/2018 Status: COMPLETED Source: [place] 12:00 AM [facility] REPOSITORY Patient Outreach (INTMWS) TORI LORD ([id number]) 1950 F Date Time Provider Department 06/27/18 ROCIO PEREZ During your visit today, we recorded the following information about you: Rocio Morris RN 06/27/2018 4:06 PM Signed TRANSITION CARE MANAGEMENT (TCM) INITIAL CONTACT Provider Action/FYI: Pt stressed from dialysis problem. He is going daily for shorter periods for now. He has rides there so she can rest while he's gone. Initial contact with patient post discharge, spoke to Tori. Patient identified by name and . TRANSITION CARE MANAGEMENT: Date of Outreach: 06/27/2018 Outreach Attempt 1: Contact Made Date of Discharge 06/25/2018 Some recent data might be hidden SUMMARY: -Pt discharged from [facility] on 06/25/18. -Follow up appointment on 06/29/18 with RAMONITA Isabel. -Medication review done with pt. -Admitted for: HTN, Acute NSTEMI, S/P stents LAD>RCA CONCERNS: Feeling very tired. Had 2 stents put in. Using a walker. She is using meds she rec'd. BSs in hosp 79-109, 122. Checking BP 150/ AM before meds. Needs to check BSs. Has to take care of as well on dialysis, MWF. Had problem with fistula. Has MOW coming on . I convinced her to have it daily at least for now. NEW MEDICATIONS: Plavix 75mg Lasix 40mg daily Imdur 30mg daily Procardia XL 60mg daily ASA 81mg MEDS HELD/DISCONTINUED: HCTZ BRIEF HOSPITAL COURSE: The patient is a 67 year old F admitted because of chest pain and shortness of breath, found to have acute non-ST elevation AL. Patient underwent cardiac catheterization she was found to have two-vessel disease of the LAD and RCA . She underwent successful SIVAN placement to proximal LAD. Patient was treated with aspirin, Plavix, statins, labetalol and lisinopril. Her blood pressure was elevated. Her medication was adjusted. She was started on Procardia XL 60 mg p.o. daily as well as isosorbide mononitrate. Patient did complain of exertional shortness of breath and that was expected to be due to probable mild acute diastolic CHF. She received 1 dose of IV Lasix and she was started on oral Lasix. Her symptoms improved. Patient remained without chest pain after the cardiac intervention. Her blood pressure improved. Patient discharged home in a stable medical condition, discharged on aspirin, Plavix, labetalol, lisinopril, statins and nitrates. Started on Procardia XL for uncontrolled hypertension as well as Lasix recommended to follow-up with PCP in 1 week, recommended to check blood pressure at least twice daily, follow-up with cardiology in 2 weeks. Copied from [facility] D/C summary. Allergies As of Date: 06/27/2018 Noted Allergy Reaction BENTYL (DICYCLOMINE) 12/30/2016 1 - Mental Status Change Comments: difficulty thinking Caused her to take extra insulin because did not remember taking it BYETTA (EXENATIDE) 01/03/2012 8 - GI Upset CYCLOBENZAPRINE 06/28/2011 14 - Other: See Comments Comments: Vaginal itich DOXYCYCLINE 03/22/2013 11 - Vomiting METFORMIN 03/31/2005 8 - GI Upset NEURONTIN (GABAPENTIN) 10/14/2006 5 - Intolerance Comments: bad dreams NSAIDS (NON-STEROIDAL ANTI-INFLAM*10/23/2007 8 - GI Upset Comments: Avoids all NSAIDs because upsets her stomach Date Reviewed: 06/22/2018 Reviewed by: Lashon Lundberg LPN - Fully Assessed 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] Primary Visit Diagnosis:ACS (acute coronary syndrome) (HCC) [I24.9] Other Visit Diagnoses:S/P coronary artery stent placement [Z95.5] Hypertension, uncontrolled [I10] Order(s):clopidogrel (PLAVIX) 75 mg tabletTake 1 tablet by mouth once daily.Disp: Rfl: furosemide (LASIX) 40 mg tabletTake 1 tablet by mouth once daily.Disp: Rfl: isosorbide mononitrate ER (IMDUR) 30 mg 24 hr tabletTake 1 tablet by mouth once daily.Disp: Rfl: NIFEdipine ER (PROCARDIA XL) 60 mg 24 hr tabletTake 1 tablet by mouth once daily.Disp: Rfl: Prescriptions as of 06/27/2018 Sig: ASPIRIN 81 MG TABLET,DELAYED * Take 81 mg by mouth once maricarmen* BLOOD SUGAR DIAGNOSTIC STRIPS Test blood sugar(s) 3 to 4 ti* HYDROCODONE 7.5 MG-ACETAMINOP* Take 1-2 tablets by mouth onc* INSULIN ASPART U-100 100 UNI* Inject 10 Units subcutaneousl* INSULIN DETEMIR (U-100) 100 U* Inject 16 units subcutaneousl* LABETALOL 200 MG TABLET Take 1 tablet by mouth twice * LISINOPRIL 20 MG TABLET Take 1 tablet by mouth twice * SIMVASTATIN 20 MG TABLET Take 1 tablet by mouth daily * ACYCLOVIR 5 % TOPICAL CREAM Apply 1 application to affect* CICLOPIROX 8 % TOPICAL SOLUTI* Apply 1 application to affect* CLOPIDOGREL 75 MG TABLET Take 1 tablet by mouth once d* CODEINE 10 MG-GUAIFENESIN 100* Take 5-10 mL by mouth four ti* Patient not taking: Reported on 04/24/2018 DIAZEPAM 5 MG TABLET Take 0.5-1 tablets by mouth o* DICLOFENAC EPOLAMINE 1.3 % TR* Apply 1 application to affect* FUROSEMIDE 40 MG TABLET Take 1 tablet by mouth once d* HYDROCHLOROTHIAZIDE 12.5 MG C* Take daily PEN NEEDLE, DIABETIC 31 GAUGE* 1 Each four times daily. ISOSORBIDE MONONITRATE ER 30 * Take 1 tablet by mouth once d* * FINGERSTIX LANCETS use as directed LIDOCAINE 5 % TOPICAL PATCH Apply 1 Patch as directed norbert* [id number] 3* NIFEDIPINE ER 60 MG TABLET,EX* Take 1 tablet by mouth once d* NITROGLYCERIN 0.4 MG SUBLINGU* Dissolve 1 tablet under the t* TRIAMCINOLONE ACETONIDE 0.5 %* Apply 1 application to affect* Medication notes this encounter LABETALOL 200 MG TABLET >> Rocio Morris RN 06/27/2018 11:14 AM >> ROCIO HAMPTON Jun 27, 2018 11:14 AM Increased to 400mg BID at [facility] 06/22/18 Problem List As Of Date 06/27/2018 Noted Resolved TRIGGER FINGER [M65.30] INVALID FOR* More... Essential hypertension [I10] INVALID FOR* More... Esophageal reflux [K21.9] INVALID FOR*01/31/2013 More... ALLERGIC RHINITIS NOS [J30.9] INVALID FOR* PERS HX OF DISEASES NEC [V13.8] INVALID FOR* More... TENOSYNOV HAND/WRIST NEC [M65.849, M65.839] INVALID FOR* JOINT CONTRACTURE-HAND [M24.549] INVALID FOR* Coronary atherosclerosis [I25.10] INVALID FOR* More... 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 Acute back pain with sciatica [M54.40] INVALID FOR* More... 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 Prescriptions ordered this encounter Disp Refills Start End CLOPIDOGREL 75 MG TABLET 06/27/2018 Class: Med Update Route: ORAL Sig: Take 1 tablet by mouth once daily. FUROSEMIDE 40 MG TABLET 06/27/2018 Class: Med Update Route: ORAL Sig: Take 1 tablet by mouth once daily. ISOSORBIDE MONONITRATE ER 30 MG TABL* 06/27/2018 Class: Med Update Route: ORAL Sig: Take 1 tablet by mouth once daily. NIFEDIPINE ER 60 MG TABLET,EXTENDED * 06/27/2018 Class: Med Update Route: ORAL Sig: Take 1 tablet by mouth once daily. Encounter Status:Closed by ROCIO HAMPTON on 06/27/18 12 LEAD ELECTROCARDIOGRAM Observed: 06/26/2018 Status: F Source: [place] 7:58 AM [facility] REPOSITORY [facility] Cardiovascular Services [address] [place] [address] [place] [address] 12 Lead EKG 12/14/18 0845 MR#: [id number] Acct: [id number] Name: TORI LORD Rep #: [id number] : 1950 67 From: Sylvain Mcdowell MD Attending Dr: Samina Alston Status: DIS IN Ordering Dr: Saul Arango MD Date: 06/23/18 Location: U Sex: F AA Admitted: 06/22/18 Test Reason : POST PCI Blood Pressure : / mmHG Vent. Rate : 063 BPM Atrial Rate : 063 BPM P-R Int : 184 ms QRS Dur : 084 ms QT Int : 420 ms P-R-T Axes : 061 -17 143 degrees QTc Int : 429 ms Normal sinus rhythm T wave abnormality, consider lateral ischemia Abnormal ECG When compared with ECG of 23-JUN-2018 04:13, MANUAL COMPARISON REQUIRED, DATA IS UNCONFIRMED Confirmed by SYLVAIN MCDOWELL MD ([id number]), assignment desk editor JAMES MULLEN ([id number]) on 06/26/2018 7:58:25 AM Referred By: Ceci ARANGO Confirmed By:SYLVAIN MCDOWELL MD 06/26/18 0758 Date Sylvain Mcdowell MD CC: Saul Arango MD; Samina Alston; Abrahan Galvan MD Signed 12 LEAD ELECTROCARDIOGRAM Observed: 06/26/2018 Status: F Source: [place] 7:50 AM [facility] REPOSITORY [facility] Cardiovascular Services [address] [place] [address] 12 Lead EKG 06/22/18 1742 MR#: [id number] Acct: [id number] Name: TORI LORD Rep #: [id number] : 1950 67 From: Sylvain Mcdowell MD Attending Dr: Samina Alston Status: DIS IN Ordering Dr: Patrick Suárez MD Date: 06/22/18 Location: [facility] Sex: F AA Admitted: 06/22/18 Test Reason : CP ADMISSION Blood Pressure : / mmHG Vent. Rate : 076 BPM Atrial Rate : 076 BPM P-R Int : 172 ms QRS Dur : 080 ms QT Int : 400 ms P-R-T Axes : 050 -12 138 degrees QTc Int : 450 ms Normal sinus rhythm T wave abnormality, consider lateral ischemia Abnormal ECG Confirmed by SYLVAIN MCDOWELL MD ([id number]), assignment desk editor JAMES MULLEN ([id number]) on 06/26/2018 7:49:51 AM Referred By: DEANNA Confirmed By:SYLVAIN MCDOWELL MD 06/26/18 0749 Date Sylvain Mcdowell MD CC: Samina Alston; Abrahan Galvan MD; Patrick Suárez MD Signed 12 LEAD ELECTROCARDIOGRAM Observed: 06/26/2018 Status: F Source: [place] 7:48 AM [facility] Cardiovascular Services [address] [place] [id number] 12 Lead EKG 06/23/18 0413 MR#: [id number] Acct: [id number] Name: TORI LORD Dae Rep #: [id number] : 1950 67 From: Sylvain Mcdowell MD Attending Dr: Samina Alston Status: DIS IN Ordering Dr: Patrick Suárez MD Date: 06/23/18 Location: [facility] Sex: F AA Admitted: 06/22/18 Test Reason : AM Blood Pressure : / mmHG Vent. Rate : 067 BPM Atrial Rate : 067 BPM P-R Int : 186 ms QRS Dur : 080 ms QT Int : 436 ms P-R-T Axes : 053 -16 128 degrees QTc Int : 460 ms Normal sinus rhythm T wave abnormality, consider lateral ischemia Abnormal ECG When compared with ECG of 22-JUN-2018 17:42, MANUAL COMPARISON REQUIRED, DATA IS UNCONFIRMED Confirmed by SYLVAIN MCDOWELL MD ([id number]), assignment desk editor JAMES MULLEN ([id number]) on 06/26/2018 7:48:27 AM Referred By: KOTSONIS Confirmed By:SYLVAIN MCDOWELL MD 06/26/18 0748 Date Sylvain Mcdowell MD CC: Samina Alston; Abrahan Galvan MD; Patrick Suárez MD Signed DISCHARGE SUMMARY Observed: 06/25/2018 Status: F Source: [place] 2:08 PM [facility] [place] REPOSITORY [facility] Medical Records Department [address] [place] [address] Discharge Summary 06/25/18 1401 MR#: [id number] Acct: [id number] Name: TORI LORD Rep #: [id number] : 1950 67 From: Samina Alston MD PCP: Abrahan Galvan MD Status: DIS IN Y Location: [place] [address] Discharge Date and Diagnosis Date of Admission: 06/22/18 Date of Discharge: 06/25/18 - Primary Discharge Diagnosis #1 acute non-ST elevation AL, status post stents to LAD and RCA. #2 uncontrolled hypertension. - Secondary Discharge Diagnosis Chronic Problems (Last Reviewed 06/21/18 @ 16:01 by Chika Matute) Anxiety (Chronic) Chronic renal failure, stage 3 (moderate) (Chronic) Hyperlipidemia (Chronic) On statin without side effect. Enc fax seed oil capsules. Hypertension (Chronic) Initial BP elevated. Rechecked 136/80 Enc to continue to monitor diet, weight, exercise. Diabetes mellitus (Chronic) Control has improved. A1c down to 7.3 Doing fairly well with diet. Exercise has started to increase. Eating occ snack. Hepatitis C (Chronic) Angina pectoris (Chronic) Hospital Course and Treatment Imaging Results: Clinical Impression(s) from Imaging Studies Chest X-Ray 06/22/18 11:50 IMPRESSION: Findings in keeping with mild degree of CHF. Blunting of the right costophrenic angle with right basilar atelectasis. Electronically Signed: Teto De La Torre MD at 13:14 EST Tel [phone], Service support , Dr. Mcdowell, Dr. arango, cardiology. Operations: None Procedures: Cardiac catheterization, EKG Summary of Care Provided: Patient seen and examined on the day of discharge and appeared to be stable to be discharged home. Shortness of breath on ambulation improved. She denied any more chest pain. Her blood pressure is getting better, other vital signs are stable. The patient is a 67 year old F admitted because of chest pain and shortness of breath, found to have acute non-ST elevation AL. Patient underwent cardiac catheterization she was found to have two-vessel disease of the LAD and RCA . She underwent successful SIVAN placement to proximal LAD. Patient was treated with aspirin, Plavix, statins, labetalol and lisinopril. Her blood pressure was elevated. Her medication was adjusted. She was started on Procardia XL 60 mg p.o. daily as well as isosorbide mononitrate. Patient did complain of exertional shortness of breath and that was expected to be due to probable mild acute diastolic CHF. She received 1 dose of IV Lasix and she was started on oral Lasix. Her symptoms improved. Patient remained without chest pain after the cardiac intervention. Her blood pressure improved. Patient discharged home in a stable medical condition, discharged on aspirin, Plavix, labetalol, lisinopril, statins and nitrates. Started on Procardia XL for uncontrolled hypertension as well as Lasix recommended to follow-up with PCP in 1 week, recommended to check blood pressure at least twice daily, follow-up with cardiology in 2 weeks. - Physical Exam General: Alert, Oriented x3, Cooperative, No apparent distress HEENT: Atraumatic, PERRLA, EOMI, Normocephalic Oral: Moist Mucosa, No Gingival or Mucosal Lesions/ Ulcerations Neck: Supple, No JVD, Negative Carotid Bruits, Trachea Midline, Thyroid Normal Size and Texture Lungs: Clear to auscultation, Normal air movement, No rhonchi, No wheeze, No rales Cardiovascular: Regular rate, Regular Rhythm, Normal S1, Normal S2, PMI Normal Abdomen: Bowel Sounds Present, Soft, Non Tender, Non-Distended, No Hepato-splenomegaly Extremities: No clubbing, No cyanosis, No edema Skin: No rashes, No breakdown Lymphatic: No Cervical, Supraclavicular, or Inguinal Adenopathy Neurological: Cranial nerves II-XII grossly intact, Neuro grossly intact Psych/Mental Status: Normal Affect, Appropriate Vital Signs Temp Pulse Resp BP Pulse Ox 98.3 F 70 16 138/55 H 95 06/25/18 08:57 06/25/18 08:57 06/25/18 08:57 06/25/18 08:57 06/25/18 08:57 Oxygen Flow Rate (L/min) 2 Oxygen Delivery Method Room Air Weight: 181 lb 7.047 oz Body Mass Index (BMI) 34.4 Finger Stick Blood Glucose 97 Intake and Output for Last 24 Hours Intake Total 3190 / 3190 1400 / 1400 600 / 600 Output Total 950 / 950 1300 / 1300 Balance 2240 / 2240 100 / 100 600 / 600 Laboratory Tests Past 24 Hrs WBC 7.0 RBC 4.18 L Hgb 10.8 L Hct 34.1 L MCV 81.6 MCH 25.8 L MCHC 31.7 L POC Glucose POC Glucose 156 H 108 124 H POC Glucose 79 Discharge Activity: Return to Normal Activity Weight Bearing Status: Weight bearing as tolerated Call your doctor if you observe: Fever of 101 or Higher, Shortness of breath, Dizziness, Fainting spells, Chest pain, Increased palpitations (irregular heartbeat), Uncontrolled pain Home Medications: Medications to take at Discharge Lisinopril [Zestril] 20 mg PO BID 04/15/16 Simvastatin [Zocor] 20 mg PO QHS 04/15/16 insulin aspart U- 100 100 unit/mL subcutaneous pen 10 unit SC TIDCM ml 07/26/17 Hydrocodone Bitart/Apap 5-325 [[place] 5/325] 1 - 2 tab PO Q4H PRN PRN 3 Days #12 tab 11/02/17 Labetalol [Trandate (Beta Ramón)] 400 mg PO BID #120 tab 06/16/18 Diazepam [Valium] 2.5 mg PO PRN PRN 06/22/18 Insulin Detemir [Levemir FlexPen] 10 units SQ QHS 06/22/18 Insulin Detemir [Levemir FlexPen] 17 units SQ DAILY 06/22/18 Lidocaine [Lidoderm Patch] 1 patch TOPICAL DAILY 06/22/18 Nitroglycerin [Nitrostat] 0.4 mg SUBLINGUAL Q5M PRN 06/22/18 Aspirin E.C. [Ecotrin] 81 mg PO DAILY@0800 #90 tablet 06/25/18 Clopidogrel Bisulfate [Plavix] 75 mg PO DAILY #90 tablet 06/25/18 Furosemide [Lasix] 40 mg PO DAILY #30 tablet 06/25/18 Isosorbide Mononitrate [Imdur] 30 mg PO DAILY #30 tablet 06/25/18 NIFEdipine [Procardia Xl] 60 mg PO DAILY #30 tablet 06/25/18 Following Prescrptions Were Given to Patient: Aspirin E.C. [Ecotrin] 81 mg PO DAILY@0800 #90 tablet Clopidogrel Bisulfate [Plavix] 75 mg PO DAILY #90 tablet Furosemide [Lasix] 40 mg PO DAILY #30 tablet Isosorbide Mononitrate [Imdur] 30 mg PO DAILY #30 tablet NIFEdipine [Procardia Xl] 60 mg PO DAILY #30 tablet Primary Care Physician: Abrahan Galvan MD [Primary Care Provider] - Please follow up with your Primary Care Physician in: 1 week. Please Follow Up With: Sylvain Mcdowell MD When: 2 weeks. Patient Instructions: Controlling High Blood Pressure, Taking Your Blood Pressure, Discharge Instructions for Heart Attack Disposition: Home Minutes spent on discharge:: 32 Patient Condition:: Stable Medical Necessity - Tobacco Use Smoking Status: Former smoker Tobacco Use: Cigarettes Meaningful Use Info Meaningful Use Diagnoses (Choose all that apply): AMI - AMI Aspirin given w/in 24hrs of arrival?: Yes ASA at discharge?: Yes Statins at discharge?: Yes Marlene/ARB at discharge?: Yes Beta Ramón at discharge?: Yes Done w/ Acute AL measure.: Yes Code Visit Inpatient E AND M: [id number] Disch Hosp 06/25/18 1408 <Electronically signed by Samina Alston MD> Date Samina Alston MD Cosigner Signature (if applicable): Date CC: Sylvain Mcdowell MD; Samina Alston; Abrahan Galvan MD Signed DISCHARGE INSTRUCTION Observed: 06/25/2018 Status: F Source: [place] 11:41 AM [facility] REPOSITORY [facility] Medical Records Department [address] [place] [address] Instructions for Home/Discharge Instructions 06/25/18 1139 MR#: [id number] Acct: [id number] Name: TORI LORD Rep #: [id number] : 1950 67 From: Samina Alston MD PCP: Abrahan Galvan MD Status: ADM IN - Discharge Diagnoses Current Active Problems: Current Active and Chronic Problems (Last Reviewed 06/21/18 @ 16:01 by Chika Matute) ACS (acute coronary syndrome) (Acute) Hypertensive urgency (Acute) You will use the following diet at home:: Calorie/Carbohydrate Controlled (specify 1200, 1400, etc) - 1800 sandy., Cardiac Your food should be the consistency of: Regular Discharge Activity: Return to Normal Activity Weight Bearing Status: Weight bearing as tolerated Call your doctor if you observe: Fever of 101 or Higher, Shortness of breath, Dizziness, Fainting spells, Chest pain, Increased palpitations (irregular heartbeat), Uncontrolled pain Instructions: Discharge Instructions for Heart Attack, Controlling High Blood Pressure, Taking Your Blood Pressure Allergies/Adverse Reactions: Allergies metformin Allergy (Verified 06/21/18 15:59) Unknown aspirin [ASA] Adverse Reaction (Verified 06/22/18 10:56) Nausea Medications to take at Discharge Lisinopril [Zestril] 20 mg PO BID 04/15/16 Simvastatin [Zocor] 20 mg PO QHS 04/15/16 insulin aspart U- 100 100 unit/mL subcutaneous pen 10 unit SC TIDCM ml 07/26/17 Hydrocodone Bitart/Apap 5-325 [[place] 5/325] 1 - 2 tab PO Q4H PRN PRN 3 Days #12 tab 11/02/17 Labetalol [Trandate (Beta Ramón)] 400 mg PO BID #120 tab 06/16/18 Diazepam [Valium] 2.5 mg PO PRN PRN 06/22/18 Insulin Detemir [Levemir FlexPen] 10 units SQ QHS 06/22/18 Insulin Detemir [Levemir FlexPen] 17 units SQ DAILY 06/22/18 Lidocaine [Lidoderm Patch] 1 patch TOPICAL DAILY 06/22/18 Nitroglycerin [Nitrostat] 0.4 mg SUBLINGUAL Q5M PRN 06/22/18 Aspirin E.C. [Ecotrin] 81 mg PO DAILY@0800 #90 tablet 06/25/18 Clopidogrel Bisulfate [Plavix] 75 mg PO DAILY #90 tablet 06/25/18 Furosemide [Lasix] 40 mg PO DAILY #30 tablet 06/25/18 Isosorbide Mononitrate [Imdur] 30 mg PO DAILY #30 tablet 06/25/18 NIFEdipine [Procardia Xl] 60 mg PO DAILY #30 tablet 06/25/18 The following prescriptions were given: Aspirin E.C. [Ecotrin] 81 mg PO DAILY@0800 #90 tablet Clopidogrel Bisulfate [Plavix] 75 mg PO DAILY #90 tablet Furosemide [Lasix] 40 mg PO DAILY #30 tablet Isosorbide Mononitrate [Imdur] 30 mg PO DAILY #30 tablet NIFEdipine [Procardia Xl] 60 mg PO DAILY #30 tablet Primary Care Physician: Abrahan Galvan MD [Primary Care Provider] - Please follow up with your Primary Care Physician in: 1 week. Test Results: Test results from this visit will be discussed in further detail at your follow-up appointment, if applicable. Please Follow Up With: Sylvain Mcdowell MD When: 2 weeks. 06/25/18 1141 <Electronically signed by Samina Alston MD> Date Samina Alston MD CC: Sylvain Mcdowell MD; Abrahan Galvan MD BEDSIDE GLUCOSE Collected: 06/25/2018 Status: F Source: [place] 11:04 AM [facility] REPOSITORY TYPE CODE TESTS RESULT OUT OF REFERENCE UNITS RANGE LAB L501.080 70-110 mg/dL High BEDSIDE GLU 156 Result Comment: MANAGEMENT OF PATIENT CARE PER NURSING PROTOCOL Performed By: #### L501.080 #### [facility] Laboratory Point of Care [address] [place] [address] BEDSIDE GLUCOSE Collected: 06/25/2018 Status: F Source: [place] 6:48 AM [facility] REPOSITORY TYPE CODE TESTS RESULT OUT OF RANGE REFERENCE UNITS LAB L501.080 70-110 mg/dL Normal BEDSIDE GLU 108 Result Comment: MANAGEMENT OF PATIENT CARE PER NURSING PROTOCOL Performed By: #### L501.080 #### [facility] Point of Care [address] [place] [address] BASIC METABOLIC Collected: 06/25/2018 Status: F Source: [place] PROFILE (BMP) 5:53 AM [facility] REPOSITORY TYPE CODE TESTS RESULT OUT OF RANGE REFERENCE UNITS LAB L501.0100 74-106 mg/dL Normal GLU 102 Result Comment: Fasting Glucose result from 100 to 125 mg/dL suggests IMPAIRED HOMEOSTASIS per A.D.A. criteria. Please note revised GLUCOSE reference range effective 2017. LAB L501.1000 7-18 mg/dL High BUN 32 LAB L501.1100 0.55-1.02 mg/dL High CREAT,SERUM 1.40 Result Comment: The validity of the calculated GFR AND GFRAA in patients over 70 years has not been determined. Clinical correlation is essential. LAB L501.1110 >60 mL/min Low EST GFR 40 Result Comment: Non- GFR Calc LAB L501.1115 >60 mL/min Low EST GFR - AA 48 Result Comment: GFR Calc LAB L501.1255 ml/min Normal Estimated CRCL 29.02 LAB L501.1300 10-20 RATIO High BUN/CRE 22.9 LAB L501.2200 8.5-10 mg/dL Normal .1 CA 8.6 LAB L501.5300 136-14 mmol/L Normal 5 NA 144 LAB L501.5600 3.5-5. mmol/L Normal 1 K 3.9 LAB L501.5900 98-107 mmol/L High CL 109 LAB L501.6100 21.0-3 mmol/L Normal 2.0 CO2 26.0 LAB L501.6200 5-15 Normal GAP 9 Performed By: #### L500.2500 #### [facility] [address] [place], [address] CBC W/DIFF, AUTOMATED Collected: 06/25/2018 Status: F Source: [place] 5:53 AM [facility] REPOSITORY TYPE CODE TESTS RESULT OUT OF RANGE REFERENCE UNITS LAB L100.1000 4.4-11.0 K/mm3 Normal WBC 7.0 LAB L100.1200 4.2-5.4 M/mm3 Low RBC 4.18 LAB L100.1300 12.0-15.0 g/dl Low HGB 10.8 LAB L100.1400 37-47 % Low HCT 34.1 LAB L100.1500 81-99 fL Normal MCV 81.6 LAB L100.1600 27.0-32.0 pg Low MCH 25.8 LAB L100.1700 32-36 g/gl Low MCHC 31.7 LAB L100.1810 11.6-14.6 % Normal RDW CV 14.6 LAB L100.1820 35.1-43.9 fl Normal RDW SD 42.7 LAB L100.1900 150-450 K/mm3 Normal PLT 165 LAB L100.2000 6.2-12.0 fl Normal MPV 11.3 LAB L100.2100 47-70 % Normal NEUT% 55.7 LAB L100.2200 19-41 % Normal LY% 30.6 LAB L100.2300 0-10 % Normal MONO% 9.1 LAB L100.2400 0-5 % Normal EO% 3.6 LAB L100.2500 0-1 % Normal BASO% 0.6 LAB L100.2550 0.0-0.9 % Normal IM GRAN % 0.400 Result Comment: IG% - Immature Granulocytes (promyelocytes, myelocytes and metamyelocytes) > 1% indicates that a LEFT SHIFT is Present. LAB L100.2620 2.0-7.7 X10 3/uL Normal Absolute Neut 3.9 LAB L100.2720 0.83-4.51 X10 3/ul Normal Absolute Lymph 2.15 Performed By: #### L100.0100 #### [facility] [address] [place], [place], [address] BEDSIDE GLUCOSE Collected: 06/24/2018 Status: F Source: [place] 9:07 PM [facility] REPOSITORY TYPE CODE TESTS RESULT OUT OF REFERENCE UNITS RANGE LAB L501.080 70-110 mg/dL High BEDSIDE GLU 124 Result Comment: MANAGEMENT OF PATIENT CARE PER NURSING PROTOCOL Performed By: #### L501.080 #### [facility] Point of Care [address] [place] [address] BEDSIDE GLUCOSE Collected: 06/24/2018 Status: F Source: [place] 4:49 PM [facility] REPOSITORY TYPE CODE TESTS RESULT OUT OF RANGE REFERENCE UNITS LAB L501.080 70-110 mg/dL Normal BEDSIDE GLU 79 Result Comment: MANAGEMENT OF PATIENT CARE PER NURSING PROTOCOL Performed By: #### L501.080 #### [facility] Point of Care [address] [place] [address] CONSULTATION Observed: 06/24/2018 Status: F Source: [place] 11:46 AM [facility] REPOSITORY [facility] Medical Records Department [address] [place] [address] Consultation 06/22/18 1711 MR#: [id number] Acct: [id number] Name: TORI LORD Rep #: [id number] : 1950 67 From: Sylvain Mcdowell MD PCP: Abrahan Galvan MD Status: ADM IN Y Location: ICU [id number] Reason for Consult Date of Consultation: 06/22/18 Reason for Consultation: Chest pain History of Present Illness: The patient is a 67 year old F with a past medical history of hypertension and no significant coronary artery disease who presented to the emergency room this afternoon with episodes of chest discomfort. He says that some of these were sharp occasionally radiating to her arm and also her leg. She denied any dizziness or diaphoresis no near syncope or syncope. She was seen in the emergency room and was noted to be markedly hypertensive. She had been in the hospital a week ago and at that time was noted to be hypertensive with EKG changes. Her troponins were negative then. She underwent a pharmacologic myocardial perfusion stress test we did not demonstrate any evidence of ischemia. She was subsequently discharged but has re-presented this time with a similar problem. Her troponins this time were noted to be mildly abnormal and she was also noted to be short of breath. Cardiology was called for further evaluation and management. [] Past Medical History Allergies/Adverse Reactions: Allergies metformin Allergy (Verified 06/21/18 15:59) Unknown aspirin [ASA] Adverse Reaction (Verified 06/22/18 10:56) Nausea Home Medications: Ambulatory Orders Medication Instructions Recorded Lisinopril [Zestril] 20 mg PO BID 04/15/16 Simvastatin [Zocor] 20 mg PO QHS 04/15/16 insulin aspart U- 100 100 unit/mL 10 unit SC TIDCM ml 07/26/17 Past Medical History (Chronic Problems): Chronic Problems (Last Reviewed 06/21/18 @ 16:01 by Chika Matute) Anxiety (Chronic) Chronic renal failure, stage 3 (moderate) (Chronic) Hyperlipidemia (Chronic) On statin without side effect. Enc fax seed oil capsules. Hypertension (Chronic) Initial BP elevated. Rechecked 136/80 Enc to continue to monitor diet, weight, exercise. Diabetes mellitus (Chronic) Control has improved. A1c down to 7.3 Doing fairly well with diet. Exercise has started to increase. Eating occ snack. Hepatitis C (Chronic) Angina pectoris (Chronic) Surgical History: hysterectomy - *Family History Maternal Family History: Family History (Last Reviewed 06/21/18 @ 16:01 by Chika Matute) Mother Arthritis Father Arthritis History Items: Heart Disease Smoking Status: Former smoker Tobacco Use: Cigarettes Alcohol: None Drugs: None Review of Systems - Review of Systems General: Denies: Fever, Night Sweats, Fatigue HEENT: Denies: Vision Change Cardiovascular: Reports: Chest Discomfort at Rest. Denies: Chest Discomfort, Shortness of Breath, Orthopnea, PND, Peripheral Edema, Palpitations, Lightheadedness, Dizziness, Near Syncope, Syncope Respiratory: Denies: Cough, Sputum Production, Hemoptysis Gastrointestinal: Denies: Indigestion, Hematemesis, Hematochezia, Melena Genitourinary: Denies: Dysuria, Hematuria Muscoloskeletal: Denies: Myalgias Skin: Denies: Rash Neurological: Denies: Dizziness Psychiatric: Reports: Anxiety Endocrine: Denies: Unexplained Weight Loss Hematologic/ Lymphatic: Denies: Anemia Subjectve: Pleasant lady in no apparent distress Objective: Vital Signs Temp Pulse Resp BP Pulse Ox 97.7 F L 79 18 161/73 H 96 06/22/18 16:50 06/22/18 16:50 06/22/18 16:50 06/22/18 16:50 06/22/18 16:50 Oxygen Delivery Method Room Air Weight: 182 lb 1.629 oz Body Mass Index (BMI) 34.4 General: Awake, Alert, Oriented x 3 HEENT: PERRL, EOMI, Sclera Non Icteric Neck: Supple, Good ROM, No Lymph Node Enlargement Lungs: Clear to auscultation Cardiovascular: Regular Rhythm, Normal S1, Normal S2, No Murmurs, No Rubs, No Gallops Vascular: No Carotid Bruits, Normal Femoral Pulses, Normal Radial Pulses, Normal Dorsalis Pedal Pulse, Normal Posterior Tibial Pulses Abdomen: Bowel Sounds Present, Soft, Non Tender, No HSM, No Organomegaly Extremities: No Cyanosis, No Clubbing, No edema Skin: No Rashes Lymphatic: No Lymph Node Enlargement Neurological: No Focal Motor or Sensory Deficit Psych/Mental Status: Appropriate 06/22/18 13:15: WBC 8.3, RBC 4.61, Hgb 11.8 L, Hct 37.9, MCV 82.2, MCH 25.6 L, MCHC 31.1 L, RDW 14.7 H, RDW Differential 43.8, Plt Count 161, MPV 10.5, Immature Gran % (Auto) 0.200, Neut % (Auto) 59.8, Lymph % (Auto) 30.5, Lee % (Auto) 6.1, Eos % (Auto) 2.6, Baso % (Auto) 0.8, Absolute Neuts (auto) 5.0, Total Counted Not Reportable 06/22/18 13:15: Sodium 144, Potassium 4.4, Chloride 109 H, Carbon Dioxide 29.0, Anion Gap 6, BUN 21 H, Creatinine 1.10 H, Est GFR (MDRD) Af Amer 63, Est GFR (MDRD) Non-Af 52 L, BUN/Creatinine Ratio 19.1, Glucose 137 H, Calcium 8.8, Troponin I 0.137 H 06/22/18 13:15: B-Natriuretic Peptide 272.7 H Rhythm: EKG: ECHO: Stress Test: Cardiac Cath: PCI: CT Surgery: Holter monitor: EPS: PPM: CXR: Chest CT Scan: Assessment/Plan 1. Chest pain * Patient presents with chest pain which is somewhat atypical. She has recently had a normal stress test. My recommendation at this time in view of her presentation and her EKG changes will be to proceed with a left heart catheterization. The risk benefits and alternatives have been explained to her she understands and agrees to proceed. * 2. Hypertension * Her blood pressure appears to be rather uncontrolled. I would recommend that we optimize her blood pressure continuing her beta-ramón * Norvasc 10 mg a day * Increase hydrochlorothiazide to 25 mg a day * Continue lisinopril 20 mg twice a day * Close follow-up by her primary physician * 3. Diastolic heart failure * She does have a history of diastolic heart failure and she would need some diuretics in addition to the current medications which have been prescribed * * Thank you for allowing me to participate in the care of your patient. Please don't hesitate to call if any issues arise 06/24/18 1146 <Electronically signed by Sylvain Mcdowell MD> Date Sylvain Mcdowell MD Cosigner Signature (if applicable): Date CC: Sylvain Mcdowell MD; Abrahan Galvan MD Signed BEDSIDE GLUCOSE Collected: 06/24/2018 Status: F Source: [place] 10:59 AM [facility] REPOSITORY TYPE CODE TESTS RESULT OUT OF REFERENCE UNITS RANGE LAB L501.080 70-110 mg/dL High BEDSIDE GLU 373 Result Comment: MANAGEMENT OF PATIENT CARE PER NURSING PROTOCOL Performed By: #### L501.080 #### [facility] Point of Care [address] [place], [place] [id number] BEDSIDE GLUCOSE Collected: 06/24/2018 Status: F Source: [place] 7:00 AM [facility] REPOSITORY TYPE CODE TESTS RESULT OUT OF REFERENCE UNITS RANGE LAB L501.080 70-110 mg/dL High BEDSIDE GLU 148 Result Comment: MANAGEMENT OF PATIENT CARE PER NURSING PROTOCOL Performed By: #### L501.080 #### [facility] Point of Care [address] [place], [place] [id number] CBC-COMPLETE BLOOD CNT Collected: 06/24/2018 Status: F Source: [place] NO DIFF 4:58 AM [facility] REPOSITORY TYPE CODE TESTS RESULT OUT OF RANGE REFERENCE UNITS LAB L100.1000 4.4-11.0 K/mm3 Normal WBC 7.5 LAB L100.1200 4.2-5.4 M/mm3 Low RBC 3.94 LAB L100.1300 12.0-15.0 g/dl Low HGB 10.1 LAB L100.1400 37-47 % Low HCT 32.1 LAB L100.1500 81-99 fL Normal MCV 81.5 LAB L100.1600 27.0-32.0 pg Low MCH 25.6 LAB L100.1700 32-36 g/gl Low MCHC 31.5 LAB L100.1810 11.6-14.6 % Normal RDW CV 14.6 LAB L100.1820 35.1-43.9 fl Normal RDW SD 43.8 LAB L100.1900 150-450 K/mm3 Low PLT 147 LAB L100.2000 6.2-12.0 fl Normal MPV 10.5 Performed By: #### L100.0500 #### [facility] [place], [address] BASIC METABOLIC Collected: 06/24/2018 Status: F Source: [place] PROFILE (BMP) 4:58 AM [facility] REPOSITORY TYPE CODE TESTS RESULT OUT OF RANGE REFERENCE UNITS LAB L501.0100 74-106 mg/dL High GLU 165 Result Comment: Fasting Glucose result greater than or equal to 126 mg/dL suggests DIABETES MELLITUS per A.D.A. criteria. Please note revised GLUCOSE reference range effective 2017. LAB L501.1000 7-18 mg/dL High BUN 27 LAB L501.1100 0.55-1.02 mg/dL High CREAT,SERUM 1.47 Result Comment: The validity of the calculated GFR AND GFRAA in patients over 70 years has not been determined. Clinical correlation is essential. LAB L501.1110 >60 mL/min Low EST GFR 38 Result Comment: Non- GFR Calc LAB L501.1115 >60 mL/min Low EST GFR - AA 45 Result Comment: GFR Calc LAB L501.1255 ml/min Normal Estimated CRCL 27.64 LAB L501.1300 10-20 RATIO Normal BUN/CRE 18.4 LAB L501.2200 8.5-10 mg/dL Low .1 CA 7.9 LAB L501.5300 136-14 mmol/L Normal 5 NA 142 LAB L501.5600 3.5-5. mmol/L Normal 1 K 3.9 LAB L501.5900 98-107 mmol/L Normal CL 107 LAB L501.6100 21.0-3 mmol/L Normal 2.0 CO2 28.0 LAB L501.6200 5-15 Normal GAP 7 Performed By: #### L500.2500 #### [facility] [address] [place], [address] BEDSIDE GLUCOSE Collected: 06/23/2018 Status: F Source: [place] 9:34 PM [facility] REPOSITORY TYPE CODE TESTS RESULT OUT OF REFERENCE UNITS RANGE LAB L501.080 70-110 mg/dL High BEDSIDE GLU 174 Result Comment: MANAGEMENT OF PATIENT CARE PER NURSING PROTOCOL Performed By: #### L501.080 #### [facility] Point of Care [address] [place] [address] BEDSIDE GLUCOSE Collected: 06/23/2018 Status: F Source: [place] 4:52 PM [facility] REPOSITORY TYPE CODE TESTS RESULT OUT OF RANGE REFERENCE UNITS LAB L501.080 70-110 mg/dL Normal BEDSIDE GLU 97 Result Comment: MANAGEMENT OF PATIENT CARE PER NURSING PROTOCOL Performed By: #### L501.080 #### [facility] Point of Care [address] [place] [address] 12 LEAD ELECTROCARDIOGRAM Observed: 06/23/2018 Status: F Source: [place] 11:54 AM [facility] REPOSITORY [facility] Cardiovascular Services [address] [place] [address] 12 Lead EKG 06/22/18 1114 MR#: [id number] Acct: [id number] Name: TORI LORD Dae Rep #: [id number] : 1950 67 From: Sylvain Mcdowell MD Attending Dr: Samina Alston Status: ADM IN Ordering Dr: Lopez Ahmadi MD Date: 06/22/18 Location: ICU Sex: F AA Admitted: 06/22/18 Test Reason : Blood Pressure : / mmHG Vent. Rate : 069 BPM Atrial Rate : 069 BPM P-R Int : 180 ms QRS Dur : 080 ms QT Int : 414 ms P-R-T Axes : 044 -09 138 degrees QTc Int : 443 ms Normal sinus rhythm T wave abnormality, consider lateral ischemia Abnormal ECG Confirmed by JEREMIAS GUADALUPE, SYLVAIN ([id number]), assignment desk editor JAMES MULLEN ([id number]) on 06/23/2018 11:54:17 AM Referred By: DAIANA Confirmed By:SYLVAIN MCDOWELL MD 06/23/18 1154 Date Sylvain Mcdowell MD CC: LOPEZ AHMADI MD; Samina Alston; Abrahan Galvan MD Signed BEDSIDE GLUCOSE Collected: 06/23/2018 Status: F Source: [place] 11:10 AM [facility] REPOSITORY TYPE CODE TESTS RESULT OUT OF REFERENCE UNITS RANGE LAB L501.080 70-110 mg/dL High BEDSIDE GLU 225 Result Comment: MANAGEMENT OF PATIENT CARE PER NURSING PROTOCOL Performed By: #### L501.080 #### [facility] Point of Care [address] [place] [address] ACT ACTIVATED CLOTTING Collected: 06/23/2018 Status: F Source: [place] TIME 8:16 AM [facility] REPOSITORY TYPE CODE TESTS RESULT OUT OF RANGE REFERENCE UNITS LAB L9100.0100 74-137 sec High ACTk CLOT 235 TIME Performed By: #### L9100.0100 #### [facility] Point of Care [address] [place] [address] ACT ACTIVATED CLOTTING Collected: 06/23/2018 Status: F Source: [place] TIME 7:55 AM [facility] REPOSITORY TYPE CODE TESTS RESULT OUT OF RANGE REFERENCE UNITS LAB L9100.0100 74-137 sec High ACTk CLOT 263 TIME Performed By: #### L9100.0100 #### [facility] Point of Care [address] [place] [address] BEDSIDE GLUCOSE Collected: 06/23/2018 Status: F Source: [place] 6:37 AM [facility] REPOSITORY TYPE CODE TESTS RESULT OUT OF REFERENCE UNITS RANGE LAB L501.080 70-110 mg/dL High BEDSIDE GLU 203 Result Comment: MANAGEMENT OF PATIENT CARE PER NURSING PROTOCOL Performed By: #### L501.080 #### [facility] Point of Care [address] [place], [place] [address] BASIC METABOLIC Collected: 06/23/2018 Status: F Source: [place] PROFILE (BMP) 5:10 AM [facility] REPOSITORY TYPE CODE TESTS RESULT OUT OF RANGE REFERENCE UNITS LAB L501.0100 74-106 mg/dL High GLU 178 Result Comment: Fasting Glucose result greater than or equal to 126 mg/dL suggests DIABETES MELLITUS per A.D.A. criteria. Please note revised GLUCOSE reference range effective 2017. LAB L501.1000 7-18 mg/dL High BUN 23 LAB L501.1100 0.55-1.02 mg/dL High CREAT,SERUM 1.36 Result Comment: The validity of the calculated GFR AND GFRAA in patients over 70 years has not been determined. Clinical correlation is essential. LAB L501.1110 >60 mL/min Low EST GFR 41 Result Comment: Non- GFR Calc LAB L501.1115 >60 mL/min Low EST GFR - AA 50 Result Comment: GFR Calc LAB L501.1255 ml/min Normal Estimated CRCL 29.87 LAB L501.1300 10-20 RATIO Normal BUN/CRE 16.9 LAB L501.2200 8.5-10 mg/dL Low .1 CA 8.2 LAB L501.5300 136-14 mmol/L Normal 5 NA 143 LAB L501.5600 3.5-5. mmol/L Normal 1 K 4.2 LAB L501.5900 98-107 mmol/L High CL 108 LAB L501.6100 21.0-3 mmol/L Normal 2.0 CO2 28.0 LAB L501.6200 5-15 Normal GAP 7 Performed By: #### L500.2500 #### [facility] [address] [place], [place], [address] CBC W/DIFF, AUTOMATED Collected: 06/23/2018 Status: F Source: [place] 5:10 AM [facility] REPOSITORY TYPE CODE TESTS RESULT OUT OF RANGE REFERENCE UNITS LAB L100.1000 4.4-11.0 K/mm3 Normal WBC 6.9 LAB L100.1200 4.2-5.4 M/mm3 Normal RBC 4.31 LAB L100.1300 12.0-15.0 g/dl Low HGB 11.0 LAB L100.1400 37-47 % Low HCT 35.4 LAB L100.1500 81-99 fL Normal MCV 82.1 LAB L100.1600 27.0-32.0 pg Low MCH 25.5 LAB L100.1700 32-36 g/gl Low MCHC 31.1 LAB L100.1810 11.6-14.6 % High RDW CV 14.7 LAB L100.1820 35.1-43.9 fl Normal RDW SD 43.9 LAB L100.1900 150-450 K/mm3 Normal PLT 162 LAB L100.2000 6.2-12.0 fl Normal MPV 11.1 LAB L100.2100 47-70 % Normal NEUT% 54.0 LAB L100.2200 19-41 % Normal LY% 33.2 LAB L100.2300 0-10 % Normal MONO% 9.1 LAB L100.2400 0-5 % Normal EO% 3.0 LAB L100.2500 0-1 % Normal BASO% 0.6 LAB L100.2550 0.0-0.9 % Normal IM GRAN % 0.100 Result Comment: IG% - Immature Granulocytes (promyelocytes, myelocytes and metamyelocytes) > 1% indicates that a LEFT SHIFT is Present. LAB L100.2620 2.0-7.7 X10 3/uL Normal Absolute Neut 3.7 LAB L100.2720 0.83-4.51 X10 3/ul Normal Absolute Lymph 2.29 Performed By: #### L100.0100 #### [facility] [address] [place], [place], [id number] PROTHROMBIN TIME W/INR Collected: 06/23/2018 Status: F Source: [place] 5:10 AM [facility] REPOSITORY TYPE CODE TESTS RESULT OUT OF RANGE REFERENCE UNITS LAB L300.4150 11.7-14.9 SECONDS Normal PROTIME 13.2 LAB L300.4200 Normal INR 1.0 Performed By: #### L300.3900, L300.4310 #### [facility] [address] [place], [address] PARTIAL THROMBOPLAST Collected: 06/23/2018 Status: F Source: [place] TIME 5:10 AM [facility] REPOSITORY TYPE CODE TESTS RESULT OUT OF RANGE REFERENCE UNITS LAB L300.4310 24.1-36.2 Seconds Normal PTT 27.9 Performed By: #### L300.3900, L300.4310 #### [facility] [address] [place], [address] BEDSIDE GLUCOSE Collected: 06/22/2018 Status: F Source: [place] 10:22 PM [facility] REPOSITORY TYPE CODE TESTS RESULT OUT OF REFERENCE UNITS RANGE LAB L501.080 70-110 mg/dL High BEDSIDE GLU 210 Result Comment: MANAGEMENT OF PATIENT CARE PER NURSING PROTOCOL Performed By: #### L501.080 #### [facility] Point of Care [address] [place] [address] TROPONIN-I Collected: 06/22/2018 Status: F Source: [place] 9:20 PM [facility] REPOSITORY Order Comment: 'TROP' Serial specimen #1, #2 or #3: 3 TYPE CODE TESTS RESULT OUT OF RANGE REFERENCE UNITS LAB L501.4010 <0.045 ng/mL High 0.094 TROPONIN-I Result Comment: TROPONIN-I EXPECTED VALUES <0.045 Negative 0.045 - 0.590 Consistent with Cardiac Damage > OR = 0.600 Critical Value Not every elevated troponin is indicative of AL. These values should be used with clinical judgement in examining the patient's clinical picture for diagnosis. To establish a diagnosis of AL versus myocardial injury, there must be a demonstrated rise and/or fall in the troponin values, in addition to ischemic symptoms, EKG changes, new regional wall motion abnormality, and/or angiographical evidence. PLEASE NOTE: REFERENCE RANGES EDITED 17 Performed By: #### L501.4010 #### [facility] [address] [place], [address] TROPONIN-I Collected: 06/22/2018 Status: F Source: [place] 7:00 PM [facility] REPOSITORY Order Comment: 'TROP' Serial specimen #1, #2 or #3: 2 TYPE CODE TESTS RESULT OUT OF RANGE REFERENCE UNITS LAB L501.4010 <0.045 ng/mL High 0.103 TROPONIN-I Result Comment: TROPONIN-I EXPECTED VALUES <0.045 Negative 0.045 - 0.590 Consistent with Cardiac Damage > OR = 0.600 Critical Value Not every elevated troponin is indicative of AL. These values should be used with clinical judgement in examining the patient's clinical picture for diagnosis. To establish a diagnosis of AL versus myocardial injury, there must be a demonstrated rise and/or fall in the troponin values, in addition to ischemic symptoms, EKG changes, new regional wall motion abnormality, and/or angiographical evidence. PLEASE NOTE: REFERENCE RANGES EDITED 17 Performed By: #### L501.4010 #### [facility] [address] [place], [address] HISTORY AND PHYSICAL Observed: 06/22/2018 Status: F Source: [place] EXAM 4:51 PM [facility] REPOSITORY [facility] Medical Records Department [address] [place] [address] History and Physical 06/22/18 1554 MR#: [id number] Acct: [id number] Name: TORI LORD Rep #: [id number] : 1950 67 From: Patrick Suárez MD PCP: Abrahan Galvan MD Status: ADM IN Location: [place] [address] Problem List (1) Chest pain Status: Acute (2) Anxiety Status: Chronic (3) Hypertensive urgency Status: Acute (4) Hyperlipidemia Status: Chronic Qualifiers: Comment: On statin without side effect. Enc fax seed oil capsules. (5) Hypertension Status: Chronic Comment: Initial BP elevated. Rechecked 136/80 Enc to continue to monitor diet, weight, exercise. (6) Diabetes mellitus Status: Chronic Qualifiers: Diabetes mellitus type: type 2 Diabetes mellitus intermediate teacher insulin use: with intermediate teacher use Diabetes mellitus complication status: with unspecified complications Qualified Code(s): E11.8 - Type 2 diabetes mellitus with unspecified complications; Z79.4 - prison (current) use of insulin Comment: Control has improved. A1c down to 7.3 Doing fairly well with diet. Exercise has started to increase. Eating occ snack. History of Present Illness Date of Admission: 06/22/18 Chief Complaint: Chest pressure/SOB The patient is a 67 year old F with PMH as below who was recently admitted to the hospital for right-sided chest pain a little less than a week ago. At that time she had a nuclear stress test as well as a CTA of her chest to rule out a PE. Both the CTA and the stress test were negative. She presents again today to the ER for a 2-second episode of chest pain that she was able to rub away, as well as chest pressure and shortness of breath. She says that the chest pressure is new and is different than the right-sided chest pain she was having a week ago. She states that the chest pressure is mostly now on her left side and up into her throat. In the ER she had an EKG which was unchanged from the one a week ago, and she did have a troponin which was elevated to .137, last week during her admission for chest pain her troponins remained negative. The ER physician also called cardiology who recommended a dose of aspirin and possible cardiac catheterization in the morning. Past Medical History Past Medical History (Chronic Problems): Chronic Problems (Last Reviewed 06/21/18 @ 16:01 by Chika Matute) Anxiety (Chronic) Chronic renal failure, stage 3 (moderate) (Chronic) Hyperlipidemia (Chronic) On statin without side effect. Enc fax seed oil capsules. Hypertension (Chronic) Initial BP elevated. Rechecked 136/80 Enc to continue to monitor diet, weight, exercise. Diabetes mellitus (Chronic) Control has improved. A1c down to 7.3 Doing fairly well with diet. Exercise has started to increase. Eating occ snack. Hepatitis C (Chronic) Angina pectoris (Chronic) Medical History: Medical History (Last Reviewed 06/21/18 @ 16:01 by Chika Matute) Back problem M53.9 Corneal injury S05.8X9A Diabetes type 2, controlled E11.9 Dx : 1997 Last exacerbation : DKA : never Hypoglycemic episode : never ER visit : never Hepatitis K75.9 Right wrist pain M25.531 Allergies metformin Allergy (Verified 06/21/18 15:59) Unknown aspirin [ASA] Adverse Reaction (Verified 06/22/18 10:56) Nausea Home Medications: Ambulatory Orders Medication Instructions Recorded Lisinopril [Zestril] 20 mg PO BID 04/15/16 Simvastatin [Zocor] 20 mg PO QHS 04/15/16 insulin aspart U- 100 100 unit/mL 10 unit SC TIDCM ml 07/26/17 Surgical History: Surgical History (Last Reviewed 06/21/18 @ 16:01 by Chika Matute) History of total abdominal hysterectomy Z98.890, Z90.710 S/P colonoscopy Z98.890 Surgical History: hysterectomy Smoking Status: Former smoker Tobacco Use: Cigarettes - *Family History Maternal Family History: Family History (Last Reviewed 06/21/18 @ 16:01 by Chika Matute) Mother Arthritis Father Arthritis History Items: Heart Disease Review of Systems Constitutional: Denies: Chills, Fever, Weight Change HEENT: Denies: Head Aches, Sinus Congestion, Sinus Drainage Cardiovascular: Reports: Chest Pressure, Heaviness. Denies: Chest Pain, Palpitations Respiratory: Reports: Shortness of Breath. Denies: Cough, Shortness of breath at rest, Sputum production Gastrointestinal: Denies: Abdominal Pain, Nausea, Vomiting Genitourinary: Denies: Dysuria Musculoskeletal: Denies: Joint Pain, Joint Tenderness Skin: Denies: Rash, Wounds Neurological: Denies: Numbness, Tingling, Focal weakness Psychiatric: Denies: Anxiety, Depression Hematologic/ Lymphatic: Denies: Easy Bruising, Easy Bleeding VTE Information - Inpt Only VTE Present on Admission: No Patient Problems: Active and Suspected Problems (Last Reviewed 06/21/18 @ 16:01 by Chika Matute) ACS (acute coronary syndrome) (Acute) Hypertensive urgency (Acute) - Physical Exam General: Alert, Oriented x3, Cooperative, No apparent distress HEENT: Atraumatic, PERRLA, EOMI, Normocephalic Oral: Moist Mucosa Neck: Supple, No JVD Lungs: Clear to auscultation, Normal air movement, No rhonchi, No wheeze, No rales Cardiovascular: Regular rate, Regular Rhythm, Normal S1, Normal S2, No murmurs Abdomen: Soft, Non Tender, Non-Distended, No Hepato-splenomegaly Extremities: No edema, Capillary Refill Less than 3 Seconds Skin: No rashes, No breakdown Neurological: Neuro grossly intact, Sensory exam intact to light touch and pain Psych/Mental Status: Normal Affect, Appropriate Vital Signs Temp Pulse Resp BP Pulse Ox 98.1 F 71 20 H 202/99 H 95 06/22/18 10:56 06/22/18 14:03 06/22/18 14:03 06/22/18 14:03 06/22/18 14:03 Oxygen Delivery Method Room Air Weight: 191 lb 5.78 oz Body Mass Index (BMI) 36.1 Laboratory Tests Past 24 Hrs Assessment/Plan All Active Problems (Last Reviewed 06/21/18 @ 16:01 by Chika Matute) Chest pain (Acute) ACS (acute coronary syndrome) (Acute) Hypertensive urgency (Acute) Cellulitis of buttock (Resolved) Diverticulitis large intestine (Resolved) 1. Hypertensive urgency/Chest pressure with an elevated troponin/SOB/HTN/HLD - will obtain serial enzymes, EKG was unchanged from previous - c/w to cardiology, possible cath in the am, will f/u with an further recommendations - Will add Norvasc to her daily regimen and will continue her home meds - During her last admission her SBP was greater than 170 most of the time - HCTZ, lisinopril BID, Labetalol BID - C/w Statin 2. DM2 - BG is 137 - C/w home medications and monitor 3. Anxiety - stable - can c/w her valium PRN DVT: SCDs Code Visit Inpatient E AND M: [id number] Init Hosp L3 06/22/18 1651 <Electronically signed by Patrick Suárez MD> Date Patrick Suárez MD Cosigner Signature: Date (if applicable) CC: Abrahan Galvan MD; Patrick Suárez MD Signed EMERGENCY DEPARTMENT Observed: 06/22/2018 Status: F Source: [place] SUMMARY 3:52 PM [facility] REPOSITORY [facility] Medical Records Department [address] [place] [address] Emergency Department Summary 06/22/18 1151 MR#: [id number] Acct: [id number] Name: TORI LORD Rep #: [id number] : 1950 67 From: Lopez Ahmadi MD PCP: Abrahan Galvan MD Status: REG ER History of Present Illness Chief Complaint: Shortness of Breath Informant: Patient Onset: Weeks - about 1 Context: Gradual Onset Timing: Continuous - worse this AM Quality: sob Location: chest Current Severity: Mild Maximum Severity: Moderate Worsened by: lying flat. light exertion. conversation while sitting at rest. Relieved by: rest, sitting up. Associated Symptoms: sharp left sided chest pain. LUE discomfort. Narrative: This morning patient had sharp nonpleuritic chest discomfort that she rubbed, and then went away. It only lasted a minute or 2. She noticed it when she woke up before she sat up. She states in the past week or so when she is short of breath, she also has some discomfort in her left arm that she rubs to make improve. She was admitted last week and had a nuclear stress test that was negative, and a negative CT angiography of the chest after a slightly elevated d-dimer. She states that her legs are sore but not swollen. She does not have any known history of heart or lung problems. - Past Medical History (1) Anxiety Status: Chronic (2) Chronic renal failure, stage 3 (moderate) Status: Chronic (3) Diabetes mellitus Status: Chronic Comment: Control has improved. A1c down to 7.3 Doing fairly well with diet. Exercise has started to increase. Eating occ snack. (4) Hepatitis C Status: Chronic (5) Hyperlipidemia Status: Chronic Comment: On statin without side effect. Enc fax seed oil capsules. (6) Hypertension Status: Chronic Comment: Initial BP elevated. Rechecked 136/80 Enc to continue to monitor diet, weight, exercise. Past Medical History - Allergies and Home Meds Allergies/Adverse Reactions: Allergies metformin Allergy (Verified 06/21/18 15:59) Unknown aspirin [ASA] Adverse Reaction (Verified 06/22/18 10:56) Nausea Primary Care Physician: Abrahan Galvan MD [Primary Care Provider] - Surgical History: hysterectomy Smoking Status: Former smoker - Family History Maternal Family History: Family History (Last Reviewed 06/21/18 @ 16:01 by Chika Matute) Mother Arthritis Father Arthritis Family History: Reports: Heart Disease Review of Systems All systems negative except as indicated General: Denies: Chills, Fever, Sweats Eyes: Denies: Visual changes - bilaterally, Diplopia ENT: Denies: Rhinorrhea, Sore throat Cardiovascular: Denies: Chest pain, Palpitations Respiratory: Reports: Dyspnea, Cough, Dyspnea on exertion, Orthopnea. Denies: Sputum Gastrointestinal: Denies: Abdominal pain, Nausea, Vomiting, Diarrhea, Melena, Hematochezia Genitourinary: Denies: Dysuria, Hematuria, Frequency Musculoskeletal: Reports: Extremity Pain - BLE from hips, down, symmetrically bilaterally. Denies: Back pain, Swelling Skin: Denies: Rash, Abscess, Wounds Neurological: Denies: Headache, Weakness, Parasthesia, Numbness Psych: Reports: Anxiety. Denies: Suicidal thoughts, Suicidal ideations Endocrine: Denies: Polyuria, Polydipsia Hematologic: Denies: Easy bruising, Easy bleeding Allergy: Denies: Swelling of the mouth, Swelling of the tongue Physical Exam Vital Signs/Narrative: Vital Signs 06/22/18 10:59 70 100 06/22/18 10:56 98.1 F 70 18 158/53 H 98 Inital Vital Signs reviewed: Yes General: Well nourished, Well developed Head: Normocephalic, Atraumatic Eyes: Perrl, EOMI ENT: Moist mucous membranes, No rhinorrhea. Negative for: Nasal congestion, Sinus tenderness Neck: Supple, Nontender, No lymphadenopathy, No JVD Cardiovascular: Regular rate, Regular rhythm, No murmurs Respiratory: No distress, Chest nontender, Diminished - at bases; otherwise, clear Abdomen: Soft, Nontender, Nondistended, Normal bowel sounds Back: Nontender, Normal Inspection Extremities: Nontender, No edema, Tenderness - both shins, w/ nml color. no calf tenderness, no palpable cords. Skin: Normal color, No rash, No Trauma Neurological: Alert, Oriented x3, Cranial nerves II-XII grossly intact, Normal Strength, Normal Sensation Psychological: Normal affect Diagnostic/Tx/Re-eval Impressions Chest X-Ray 06/22/18 11:50 IMPRESSION: Findings in keeping with mild degree of CHF. Blunting of the right costophrenic angle with right basilar atelectasis. Electronically Signed: Teto De La Torre MD at 13:14 EST Tel [phone], Service support , 06/22/18 11:50 Chest PA and Lateral [RAD] Stat Laboratory Results - Rhythm Strip Rhythm Strip: Sinus Rhythm Rate: 70 Ectopy: None - EKG Initial EKG Interpretation: Sinus Rhythm, No Acute Injury Pattern, Inverted T-Waves - V4-6, 1 AND aVL, - - no ST dep/jamel Prior: Unchanged - Medical Decision Making Patient is comfortable and stable without chest pain, her workup shows an abnormal troponin, she does have some possibly ischemic lateral EKG abnormalities that were present on her prior EKG. Plan is for admission and further evaluation. Of note, patient has had a negative/normal stress test last week in the hospital. Blood pressures were high then, and they are climbing here in the ER. Initially she was in the 150s now she is at about 200. She feels much better after nebulizer treatment, she is additionally given IV Lasix. I spoke with Dr. Mcdowell, who advises additionally giving her aspirin along with medicine to treat her side effects to it, Norvasc 10 mg, and holding off on any anticoagulation, with plans to perform heart cath in the morning. ED Disposition - Plan for ED Patient: Disposition: [facility] Chief Complaint: Shortness of Breath Diagnosis: ACS (acute coronary syndrome), Hypertensive urgency Referrals: Abrahan Galvan MD [Primary Care Provider] - What to do if you have Problems For any increased pain, shortness of breath, bleeding, nausea or vomiting, chest pain, or any unexpected problems, contact your Primary Care Provider. Call [facility] ([phone]) or report to the closest Emergency Room. Call 911 if necessary. 06/22/18 0169 <Electronically signed by Lopez Ahmadi MD> Date Lopez Ahmadi MD Cosigner Signature (If Indicated): Date CC: Abrahan Galvan MD CBC W/DIFF, AUTOMATED Collected: 06/22/2018 Status: F Source: [place] 1:15 PM [facility] REPOSITORY TYPE CODE TESTS RESULT OUT OF RANGE REFERENCE UNITS LAB L100.1000 4.4-11.0 K/mm3 Normal WBC 8.3 LAB L100.1200 4.2-5.4 M/mm3 Normal RBC 4.61 LAB L100.1300 12.0-15.0 g/dl Low HGB 11.8 LAB L100.1400 37-47 % Normal HCT 37.9 LAB L100.1500 81-99 fL Normal MCV 82.2 LAB L100.1600 27.0-32.0 pg Low MCH 25.6 LAB L100.1700 32-36 g/gl Low MCHC 31.1 LAB L100.1810 11.6-14.6 % High RDW CV 14.7 LAB L100.1820 35.1-43.9 fl Normal RDW SD 43.8 LAB L100.1900 150-450 K/mm3 Normal PLT 161 LAB L100.2000 6.2-12.0 fl Normal MPV 10.5 LAB L100.2100 47-70 % Normal NEUT% 59.8 LAB L100.2200 19-41 % Normal LY% 30.5 LAB L100.2300 0-10 % Normal MONO% 6.1 LAB L100.2400 0-5 % Normal EO% 2.6 LAB L100.2500 0-1 % Normal BASO% 0.8 LAB L100.2550 0.0-0.9 % Normal IM GRAN % 0.200 Result Comment: IG% - Immature Granulocytes (promyelocytes, myelocytes and metamyelocytes) > 1% indicates that a LEFT SHIFT is Present. LAB L100.2620 2.0-7.7 X10 3/uL Normal Absolute Neut 5.0 LAB L100.2720 0.83-4.51 X10 3/ul Normal Absolute Lymph 2.54 Performed By: #### L100.0100 #### [facility] [address], [address] BASIC METABOLIC Collected: 06/22/2018 Status: F Source: [place] PROFILE (BMP) 1:15 PM [facility] REPOSITORY TYPE CODE TESTS RESULT OUT OF RANGE REFERENCE UNITS LAB L501.0100 74-106 mg/dL High GLU 137 Result Comment: Fasting Glucose result greater than or equal to 126 mg/dL suggests DIABETES MELLITUS per A.D.A. criteria. Please note revised GLUCOSE reference range effective 2017. LAB L501.1000 7-18 mg/dL High BUN 21 LAB L501.1100 0.55-1.02 mg/dL High CREAT,SERUM 1.10 Result Comment: The validity of the calculated GFR AND GFRAA in patients over 70 years has not been determined. Clinical correlation is essential. LAB L501.1110 >60 mL/min Low EST GFR 52 Result Comment: Non- GFR Calc LAB L501.1115 >60 mL/min Normal EST GFR - AA 63 Result Comment: GFR Calc LAB L501.1255 ml/min Normal Estimated CRCL 36.94 LAB L501.1300 10-20 RATIO Normal BUN/CRE 19.1 LAB L501.2200 8.5-10 mg/dL Normal .1 CA 8.8 LAB L501.5300 136-14 mmol/L Normal 5 NA 144 LAB L501.5600 3.5-5. mmol/L Normal 1 K 4.4 LAB L501.5900 98-107 mmol/L High CL 109 LAB L501.6100 21.0-3 mmol/L Normal 2.0 CO2 29.0 LAB L501.6200 5-15 Normal GAP 6 Performed By: #### L500.2500, L501.4010 #### [facility] [address] [place], [address] TROPONIN-I Collected: 06/22/2018 Status: F Source: SHEEL[place] 1:15 PM [facility] REPOSITORY TYPE CODE TESTS RESULT OUT OF RANGE REFERENCE UNITS LAB L501.4010 <0.045 ng/mL High 0.137 TROPONIN-I Result Comment: TROPONIN-I EXPECTED VALUES <0.045 Negative 0.045 - 0.590 Consistent with Cardiac Damage > OR = 0.600 Critical Value Not every elevated troponin is indicative of AL. These values should be used with clinical judgement in examining the patient's clinical picture for diagnosis. To establish a diagnosis of AL versus myocardial injury, there must be a demonstrated rise and/or fall in the troponin values, in addition to ischemic symptoms, EKG changes, new regional wall motion abnormality, and/or angiographical evidence. PLEASE NOTE: REFERENCE RANGES EDITED 17 Performed By: #### L500.2500, L501.4010 #### [facility] [address] [place], [address] BNP,B-TYPE NATRIURETIC Collected: 06/22/2018 Status: F Source: [place] 1:15 PM [facility] REPOSITORY TYPE CODE TESTS RESULT OUT OF RANGE REFERENCE UNITS LAB L503.6620 0-100 pg/mL High B-TYPE 272.7 RADHA PEP Performed By: #### L503.6620 #### [facility] [address] [place], [address] CHEST PA AND LATERAL Observed: 06/22/2018 Status: F Source: SHEELA 11:51 AM [facility] REPOSITORY [facility] Imaging Services [address] [facility] [place] [address] Chest PA and Lateral MR#: [id number] Acct: [id number] Name: TORI LORD Rep #: [id number] : 1950 F 67 From: Teto De La Torre MD PCP: Abrahan Galvan MD Status: PRE ER Study: Chest PA and Lateral Date of Exam: 06/22/18 Exam# [id number] Ordering Dr: Lopez Ahmadi MD STUDY: X-RAY CHEST REASON FOR EXAM: Female, 67 years old. Shortness of breath and chest pain. TECHNIQUE: PA and lateral views of the chest. COMPARISON: Comparison is made with prior study dated June 15, 2018. FINDINGS: EKG electrodes are seen. There is evidence of vascular congestion and mild CHF. There is blunting of the right cause phrenic angle with right basilar atelectasis. There is borderline cardiomegaly. Normal mediastinum and stefany. Normal visualized pulmonary arteries. There is atherosclerotic calcification of the aortic arch with tortuosity. Normal visualized thoracic spine. Metallic anchor clips are seen in the right humeral head most likely secondary to prior rotator cuff surgery. There is no demonstrated abnormality of the visualized soft tissue structures of the upper abdomen. RAD/Chest PA and Lateral IMPRESSION: Findings in keeping with mild degree of CHF. Blunting of the right costophrenic angle with right basilar atelectasis. Electronically Signed: Teto De La Torre MD at 13:14 EST Tel [phone], Service support , CC: LOPEZ AHMADI MD; Abrahan Galvan MD Delivery Stock Clerk: Signed PROGRESS Observed: 06/22/2018 Status: COMPLETED Source: [place] 10:00 AM [facility] REPOSITORY HNO ID: [id number] Author: Abarhan Galvan Service: (none) Author Type: Physician Type: Progress Notes Filed: 07/13/2018 8:36 PM Note Text: Patient presents for DM SMA with Dr. Galvan and Osbaldo Byrne PharmD GOALS: <8% ? Tori Lord is a 67 year old female was last seen by PCP, Dr. Galvan on 05/18 for an SMA - no med changes were made. Saw PharmD on 06/13 for DM - no med changes were made to DM meds because patient wants to get off all medications and only wants to improve diabetes through lifestyle modifications. BP was found to be very elevated in office and HCTZ 12.5mg was initiated. Saw Ramonita Isabel on 06/14 for BP recheck - no med changes. Patient went to ED on 06/16 for chest pain - started on labetalol 200mg BID. 06/22/18 1016 BP: (!) 227/105 Pulse: 77 Resp: 28 Patient did not stay for DM SMA given symptomatic with SOB and chest pressure--squad called to bring patient to ER. Was admitted with NSTEMI and uncontrolled hypertension. Abrahan Galvan MD CNOV Observed: 06/22/2018 Status: COMPLETED Source: [place] 10:00 AM [facility] REPOSITORY Office Visit (INTMWS) RISATORI GAMA ([id number]) 1950 F Date Time Provider Department 06/22/18 10:00 AM ABRAHAN GALVAN INTMWS During your visit today, we recorded the following information about you: Pulse Respiration Blood pressure 77/minute 28/minute 227/105 Abrahan Galvan MD 07/13/2018 8:36 PM Signed Patient presents for DM SMA with Dr. Galvan and Osbaldo Byrne PharmD GOALS: <8% ? Tori M Risa is a 67 year old female was last seen by PCP, Dr. Galvan on 05/18 for an SMA - no med changes were made. Saw PharmD on 06/13 for DM - no med changes were made to DM meds because patient wants to get off all medications and only wants to improve diabetes through lifestyle modifications. BP was found to be very elevated in office and HCTZ 12.5mg was initiated. Saw Ramonita Isabel on 06/14 for BP recheck - no med changes. Patient went to ED on 06/16 for chest pain - started on labetalol 200mg BID. 06/22/18 1016 BP: (!) 227/105 Pulse: 77 Resp: 28 Patient did not stay for DM SMA given symptomatic with SOB and chest pressure--squad called to bring patient to ER. Was admitted with NSTEMI and uncontrolled hypertension. MD Lashon Coe LPN 06/22/2018 10:50 AM Signed [facility] Emergency Response Form. NOT TO BE USED AT [facility] Complete this report when the Emergency Medical Response is activated (911 calls/EmergencyTransport to the ED) or when a Code Sheet is utilized in the care of a patient (i.e., ASC) Date of the Event: 06/22/18 (Must provide Value) Time of the Event:1015 (Must provide Value) Was emergency response activated? (Local EMS/Emergency Department) YES (Must provide Value) Location of the Incident: [facility] ([facility]CLUD[facility] THE [facility]) (Must provide Value) Reason/Chief Complaint for Emergency Call (Check all that apply): Chest Pain/Pressure, Hypertension/Hypotension and Respiratory Arrest/Difficulty Breathing (Must provide Value) CPR Initiated-Chest Compressions and/or Rescue Breathing Provided: NO (Must provide value) Facility AED Used-Automatic External Defibrillator: NO (Must provide value) EMS AED Used-Automatic External Defibrillator: NO (Must provide value) Prior to EMS arrival, was any treatment administered? NO Describe treatment Provided comfort Patient Disposition: Transferred to Hospital ED (Must provide value) Computer Technology Instructor information: Name of Provider- Lashon Lundberg (Must provide value) Referring Provider: ABRAHAN GALVAN [[id number]] Allergies As of Date: 06/22/2018 Noted Allergy Reaction BENTYL (DICYCLOMINE) 12/30/2016 1 - Mental Status Change Comments: difficulty thinking Caused her to take extra insulin because did not remember taking it BYETTA (EXENATIDE) 01/03/2012 8 - GI Upset CYCLOBENZAPRINE 06/28/2011 14 - Other: See Comments Comments: Vaginal itich DOXYCYCLINE 03/22/2013 11 - Vomiting METFORMIN 03/31/2005 8 - GI Upset NEURONTIN (GABAPENTIN) 10/14/2006 5 - Intolerance Comments: bad dreams NSAIDS (NON-STEROIDAL ANTI-INFLAM*10/23/2007 8 - GI Upset Comments: Avoids all NSAIDs because upsets her stomach Date Reviewed: 06/22/2018 Reviewed by: Lashon Lundberg LPN - Fully Assessed Reason for Visit: DM SMA [Other] Primary Visit Diagnosis:Hypertensive urgency [I16.0] Other Visit Diagnosis:SOB (shortness of breath) [R06.02] Prescriptions as of 06/22/2018 Sig: ASPIRIN 81 MG TABLET,DELAYED * Take 81 mg by mouth once maricarmen* LABETALOL 200 MG TABLET Take 1 tablet by mouth twice * Patient taking differently: Take 400 mg by mouth twice da* HYDROCHLOROTHIAZIDE 12.5 MG C* Take daily Patient not taking: Reported on 06/29/2018 NITROGLYCERIN 0.4 MG SUBLINGU* Dissolve 1 tablet under the t* INSULIN DETEMIR (U-100) 100 U* Inject 16 units subcutaneousl* Patient taking differently: Inject 17 units subcutaneousl* LIDOCAINE 5 % TOPICAL PATCH Apply 1 Patch as directed norbert* SIMVASTATIN 20 MG TABLET Take 1 tablet by mouth daily * LISINOPRIL 20 MG TABLET Take 1 tablet by mouth twice * DIAZEPAM 5 MG TABLET Take 0.5-1 tablets by mouth o* HYDROCODONE 7.5 MG-ACETAMINOP* Take 1-2 tablets by mouth onc* DICLOFENAC EPOLAMINE 1.3 % TR* Apply 1 application to affect* ACYCLOVIR 5 % TOPICAL CREAM Apply 1 application to affect* INSULIN ASPART U-100 100 UNI* Inject 10 Units subcutaneousl* PEN NEEDLE, DIABETIC 31 GAUGE* 1 Each four times daily. TRIAMCINOLONE ACETONIDE 0.5 %* Apply 1 application to affect* Patient not taking: Reported on 06/29/2018 BLOOD SUGAR DIAGNOSTIC STRIPS Test blood sugar(s) 3 to 4 ti* [id number]-[id number] 3* CODEINE 10 MG-GUAIFENESIN 100* Take 5-10 mL by mouth four ti* Patient not taking: Reported on 04/24/2018 CICLOPIROX 8 % TOPICAL SOLUTI* Apply 1 application to affect* * FINGERSTIX LANCETS use as directed Problem List As Of Date 06/22/2018 Noted Resolved TRIGGER FINGER [M65.30] INVALID FOR* More... Essential hypertension [I10] INVALID FOR* More... Esophageal reflux [K21.9] INVALID FOR*01/31/2013 More... ALLERGIC RHINITIS NOS [J30.9] INVALID FOR* PERS HX OF DISEASES NEC [V13.8] INVALID FOR* More... TENOSYNOV HAND/WRIST NEC [M65.849, M65.839] INVALID FOR* JOINT CONTRACTURE-HAND [M24.549] INVALID FOR* Coronary atherosclerosis [I25.10] INVALID FOR* More... 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 Acute back pain with sciatica [M54.40] INVALID FOR* More... 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 Visit Notes: >> Lashon Lundberg ANALYTICAL RESEARCH PROGRAM MANAGER Debbi Jun 22, 2018 10:48 AM Status: Signed [facility] Emergency Response Form. NOT TO BE USED AT [facility] Complete this report when the Emergency Medical Response is activated (911 calls/EmergencyTransport to the ED) or when a Code Sheet is utilized in the care of a patient (i.e., ASC) Date of the Event: 06/22/18 (Must provide Value) Time of the Event:1015 (Must provide Value) Was emergency response activated? (Local EMS/Emergency Department) YES (Must provide Value) Location of the Incident: [facility] ([facility] THE [facility]) (Must provide Value) Reason/Chief Complaint for Emergency Call (Check all that apply): Chest Pain/Pressure, Hypertension/Hypotension and Respiratory Arrest/Difficulty Breathing (Must provide Value) CPR Initiated-Chest Compressions and/or Rescue Breathing Provided: NO (Must provide value) Facility AED Used-Automatic External Defibrillator: NO (Must provide value) EMS AED Used-Automatic External Defibrillator: NO (Must provide value) Prior to EMS arrival, was any treatment administered? NO Describe treatment Provided comfort Patient Disposition: Transferred to Hospital ED (Must provide value) Computer Technology Instructor information: Name of Provider- Lashon Lundberg (Must provide value) Encounter Status:Closed by ABRAHAN GALVAN MD on 07/13/18 ENDOCRINOLOGY VISIT Observed: 06/22/2018 Status: F Source: SHEELA REPORT 7:53 AM [facility] REPOSITORY [facility] [address] [place] [address]. [address] [place] [address] OFFICE VISIT Date of Service: 06/21/18 MR#: [id number] Acct: [id number] Name: TORI LORD Rep #: [id number] : 1950 Provider: Sheryl Lopez NP Age/Sex: 67/F Location: [facility] Status: Signed HPI History of present illness History of present illness Tori Lord is a 67 year old female with diabetes type 2. Diagnosed in 1997. Continues on levemir 17 units in am and 8 units in pm. Also continues on meal insulin novolog 10 units each meal. A1c down to 7.3 in October 2017 Now is over 9 range. Pt denies difficulty with injections or self monitoring of BG. Denies any signs of infection or irritation at site of injections. Reports taking insulin as directed Reports recent hospital stay due to chest pain and not feeling well. Has returned home and feels much better. Recent elevation in BP with changes in BP medication. PCP managing. At time of visit: -Pt denies symptoms of hypertensive emergency (CP,SOB,JACK, or blurred vision) and hypotension(dizziness or lightheadedness) -Pt denies symptoms of hypoglycemia ( sweaty, confusion, anxiety, tremor, hunger, palpitations) and hyperglycemia ( polydipsia, polyuria) -Pt denies potential medication adverse effect. Hypoglycemia Aware of hypoglycemia: yes Able to self treat low BG: Yes Frequent low Blood sugar: No Has supply of glucagon: Yes SMBG 2-4 times daily Average currently 180 Diet 3 meals Low sodium Does not carb count Exam Const General: comfortable, no acute distress Nutritional Appearance: overweight Orientation: oriented x3 HENMT Head: normal to inspection, atraumatic Ears: hearing grossly normal bilaterally Mouth: oral mucosae normal, moist mucous membranes Teeth and gingiva: dentition normal Eyes General: appearance normal, both eyes and all related structures Conjunctivae: conjunctivae normal Pupils: PERRL Neck Neck: normal visual inspection, full ROM Neck mass: No Thyroid: thyroid normal Chest Chest palpation AND inspection: deferred Resp Effort AND Inspection: normal respiratory effort, able to speak in complete sentences, symmetric chest movement Auscultation: Bilateral: Clear to Auscultation Cardio Rate: regular rate Rhythm: regular rhythm Heart Sounds: S1 normal, S2 normal GI Inspection: normal to inspection Auscultation: normal bowel sounds Palpation: soft General: deferred Musc Cervical Spine: cervical ROM normal Skin General: no rashes or lesions noted Wounds: no wounds Diabetic Foot Pulses: L dorsalis pedis pulse: normal, R dorsalis pedis pulse: normal Monofilament test: Left foot: normal, Right foot: normal Neuro General: gait normal Cognition: normal cognition Speech: speech normal Gait: normal gait Extrem General: normal to inspection, full ROM Psych Appearance: well kempt Mental Status: mental status grossly normal Speech and Movement: speech and movement normal Thought Content: normal Judgment: judgment good Type: type 2, insulin-requiring Glucose control symptoms: Reports high post-meal glucose Weight and fatigue symptoms: Denies snoring Cardiopulmonary symptoms: Reports chest pain at rest; denies dyspnea on exertion, lightheadedness or myalgias GI symptoms: Denies constipation, diarrhea, nausea/dyspepsia or vomiting Other symptoms: Denies blurry vision or change in vision Pertinent visit history: Reports recent hospital admission Self monitoring: Yes Percentage of fasting blood glucose within goal: 25%-50% of the time Dietary compliance: Diabetes: good Diabetes education in past year: Yes Glucose testing: demonstrates correct use of meter, understands testing schedule Sick day education - understands ketone testing: Yes Physical activity: regular Intake Vital Signs06/21/18 Body Mass Index (BMI) 34.1 Intake Visit Reasons: Diabetes follow-up Nurse Discharge Planner Required: No Accompanied by: Self Allergies metformin Allergy (Verified 06/21/18 15:59) Unknown Medications Diazepam [Valium] 5 mg PO DAILY 04/15/16 [History Confirmed 06/21/18] Lisinopril [Zestril] 20 mg PO BID 04/15/16 [History Confirmed 06/21/18] Simvastatin [Zocor] 20 mg PO QHS 04/15/16 [History Confirmed 06/21/18] blood sugar diagnostic strips See Dose Instructions .ROUTE .MEDSUPPLY #20 ea 07/26/17 [History Confirmed 06/21/18] insulin aspart U- 100 100 unit/mL subcutaneous pen 10 unit SC TID ml 07/26/17 [History Confirmed 06/21/18] Hydrocodone Bitart/Apap 5-325 [[place] 5/325] 1 - 2 tab PO Q4H PRN PRN 3 Days #12 tab 11/02/17 [Rx Confirmed 06/21/18] Aspirin E.C. [Ecotrin] 81 mg PO DAILY@0800 tab 06/16/18 [Rx Confirmed 06/21/18] Labetalol [Trandate (Beta Ramón)] 400 mg PO BID #120 tab 06/16/18 [Rx Confirmed 06/21/18] hydroCHLOROthiazide [Hydrochlorothiazide] 12.5 mg PO DAILY #30 cap 06/16/18 [Rx Confirmed 06/21/18] Nurse's Note: blood sugars : low : 196 high : 211 [facility] Medical History Back problem (Acute) Corneal injury (Acute) Diabetes type 2, controlled (Acute) Hepatitis (Acute) Right wrist pain (Acute) Surgical History History of total abdominal hysterectomy (Acute) S/P colonoscopy (Acute) Family History Mother Arthritis Father Arthritis Social History Smoking Status: Former smoker second hand exposure: No alcohol intake: never substance use type: does not use ROS Const Constitutional: Positive for fatigue and night sweats; no anorexia, body ache, chills, fever(s), frequent falls, decreased energy, malaise, weakness, weight change, sleep problems, abnormal sleep pattern, change in appetite, other, headache(s), snoring or excessive sweating Eyes Eyes: No blurry vision, change in vision, double vision, discharge, dry eyes, bulging eyes, floaters, visual disturbances, eye pain, light sensitivity, spots in vision, tunnel vision or other ENT ENT: No abnormal hearing, ear pain, ear discharge, ear pressure, hearing loss, tinnitus, dizziness/vertigo, balance problems, nosebleed/epistaxis, nasal congestion, nasal obstruction, nose pain, sinus pressure, sinus pain, nasal discharge, post nasal drip, headache(s), facial pain, dental pain, dry mouth, bad breath, hoarseness, lip swelling, mouth lesions, mouth pain, sore throat, tongue swelling, throat swelling, other, difficulty swallowing or neck pain Resp Respiratory: Positive for cough, shortness of breath and wheezing; no change in phlegm color, chest congestion, excessive phlegm production, hemoptysis, pain on inspiration, pain with cough, snoring, stridor or other Cardio Cardiology: Positive for chest pain at rest, chest pain with exertion and shortness of breath; no leg pain with exertion, excessive sweating, dyspnea on exertion, generalized swelling, irregular heart rhythm, lightheadedness, orthopnea, radiating jaw, neck or arm pain, fast heart rate, slow heart rate, palpitations or other Gastro GI: No abdominal pain, belching, bloating, change in bowel habits, change in stool character, coffee ground emesis, constipation, cramping, diarrhea, heartburn, difficulty swallowing, feeling full early, excessive flatus, incontinent of stools, Vomiting blood/hematemesis, blood in stool, loose stools, Black,tarry stools, nausea/dyspepsia, pain with swallowing, vomiting or other Genitourinary-Female: No difficulty urinating, burning urination, painful urination, urinary incontinence, urinary frequency, urinary urgency, urinary hesitancy, urinary retention, blood in urine, Frequent nighttime urination/ nocturia, post void dribbling, suprapubic fullness, side pain, sexual problems, genital lesions, genital itching, hot flashes, abnormal periods, abnormal vaginal bleeding, absent period, painful periods, light periods, heavy periods, difficulty getting , painful intercourse, pelvic pain, vaginal dryness, vaginal odor, Vaginal Itching or other Musc Musculoskeletal: Positive for muscle weakness (bilat legs) and back pain; no abnormal walking, joint pain, deformity, joint swelling, limited range of motion, loss of height, muscle cramps, decreased muscle mass, body aches, neck pain, numbness, radiating pain into limb, stiffness, tingling or other Skin Skin: No acne, hair loss, change in hair, nail changes, boil, change in skin color, dry skin, redness, excessive hair growth, yellowing of the skin, lesions, itching, rash, skin pain, skin ulcer, sores, skin swelling, wounds or other Breast Breast: No other Neuro Neurology: No frequent falls, weakness, visual disturbances, abnormal hearing, headache(s), abnormal walking, numbness or tingling Psych Psychiatric: No abnormal sleep pattern, No change in appetite Endo Endocrine: Positive for fatigue; no other or excessive sweating Aller/Imm Allergy/Immunologic: Positive for wheezing; no lip swelling, tongue swelling, throat swelling or itchy eyes Assessment AND Plan 1. Type 2 diabetes mellitus with complication, with long-term current use of insulin E11.8; Z79.4 Plan No further issues since hospital stay. Appetite good and using pain patch which she reports is doing very well controlling her back pain. BG continue to range 140-200 with most BG 180 currently. Reports labs done at [facility] by Dr. Galvan. No copies at this time. Continues to have elevated Cr. A1c currently 9.5 Discussed importance of checking BG and monitoring BG closely. Patient Instructions Control portions Food selections should be healthy Choose more low carb vegetables Avoid snacks and desserts. Drink water Exercise daily Eat more fresh foods, not canned or processed Eat more slowly Monitor BG in pairs, before meal and 2 hours later. Has follow up with PCP scheduled. Plan Detail Additional Comments 1. Please schedule follow up in 3 months. 2. Lab work one week before appointment. 3. Discussed importance of regular exercise and recommend starting or continuing a regular exercise program for good health. 4. The patient was encouraged to lose weight for good health 5. The importance of monitoring blood sugar regularly was reviewed. 6. The importance of monitoring the HBA1c level regularly was reviewed. 7. The importance of prper foot care and regularly checking feet to prevent sores and loss of limbs was reviewed. 8. The importance of keeping BP at or below 130/80 to prevent stroke, heart attacks, kidney failure, blindness was reviewed. Spent approximately 30 minutes with patient with over 50% of time spent in discussion and counseling regarding medication adjustment, symptoms and treatment of hypoglycemia, diet adherence, and checking BG before driving. Coding Level of Care Code Off vis,est,level 3 Diagnoses Type 2 diabetes mellitus with complication, with long-term current use of insulin E11.8; Z79.4 Diabetes mellitus type: type 2 Diabetes mellitus complication status: with unspecified complications Diabetes mellitus intermediate teacher insulin use: with nursing home use 06/22/18 0753 <Electronically signed by Sheryl JONES> Date Sheryl JONES Cosigner Signature: Date (if applicable) CC: 12 LEAD ELECTROCARDIOGRAM Observed: 06/19/2018 Status: F Source: SHEELA 2:54 PM COUNT INCLUDES THE [facility] REPOSITORY [facility] Cardiovascular Services [address] [place] [address] 12 Lead EKG 06/16/18 0322 MR#: [id number] Acct: [id number] Name: TORI LORD Rep #: [id number] : 1950 67 From: Sylvain Mcdowell MD Attending Dr: Simon Patel DO Status: DIS ELLI Ordering Dr: Dae Lozano DO Date: 06/16/18 Location: [facility] Sex: F C Admitted: 06/16/18 Test Reason : CP ADMIT Blood Pressure : / mmHG Vent. Rate : 074 BPM Atrial Rate : 074 BPM P-R Int : 168 ms QRS Dur : 082 ms QT Int : 416 ms P-R-T Axes : 053 -27 134 degrees QTc Int : 461 ms Normal sinus rhythm T wave abnormality, consider lateral ischemia Abnormal ECG When compared with ECG of 20-MAY-2012 05:41, T wave inversion now evident in Lateral leads Confirmed by JEREMIAS GUADALUPE, SYLVAIN ([id number]), assignment desk editor JAMES MULLEN ([id number]) on 06/19/2018 2:54:19 PM Referred By: DR LOZANO Confirmed By:SYLVAIN MCDOWELL MD 06/19/18 1454 Date Sylvain Mcdowell MD CC: Lauren Lozano; Abrahan Galvan MD; Simon Patel DO Signed 12 LEAD ELECTROCARDIOGRAM Observed: 06/19/2018 Status: F Source: [place] 2:51 PM COUNT INCLUDES THE [facility] REPOSITORY [facility] Cardiovascular Services [address] [place] [address] 12 Lead EKG 06/15/18 2322 MR#: [id number] Acct: [id number] Name: TORI LORD Rep #: [id number] : 1950 67 From: Sylvain Mcdowell MD Attending Dr: Simon Patel DO Status: DIS ELLI Ordering Dr: Vee Hernandez MD Date: 06/15/18 Location: [facility] Sex: F C Admitted: 06/16/18 Test Reason : CP Blood Pressure : / mmHG Vent. Rate : 082 BPM Atrial Rate : 082 BPM P-R Int : 156 ms QRS Dur : 078 ms QT Int : 382 ms P-R-T Axes : 046 -24 105 degrees QTc Int : 446 ms Normal sinus rhythm Possible Left atrial enlargement T wave abnormality, consider lateral ischemia Abnormal ECG Confirmed by SYLVAIN MCDOWELL MD ([id number]), assignment desk editor JAMES MULLEN ([id number]) on 06/19/2018 2:51:26 PM Referred By: JADE Confirmed By:SYLVAIN MCDOWELL MD 06/19/18 1451 Date Sylvain Mcdowell MD CC: Vee Hernandez MD; Abrahan Galvan MD; Simon Patel DO Signed PROGRESS Observed: 06/19/2018 Status: COMPLETED Source: [place] 8:35 AM [facility] [place] REPOSITORY HNO ID: [id number] Author: Young ([facility]) Arnaldo Service: (none) Author Type: Nurse Specialist Type: Progress Notes Filed: 06/19/2018 9:15 AM Note Text: OUTPATIENT VISIT DATE June 19, 2018 OUTPATIENT VISIT TYPE ESTABLISHED PRIMARY CARE PHYSICIAN: Abrahan Galvan MD CHIEF COMPLAINT: Patient presents with: Hospital F/U History of Present Illness: Tori Lord is a 67 year old female who was last seen June 14, 2018. 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 It was noted she was not taking amlodipine previously ordered. Continues with lisinopril 20 mg twice daily. Presents today reporting that she took one dose of 12.5 mg of hydrochlorothiazide last night and this morning. She notes over the last 3 weeks she has intermittently had chest pain when walking to the [place] her which has relieved with sitting and resting for a few minutes. Currently without chest pain or shortness of breath. No palpitations or edema. She has noted a headache which improved with taking hydrochlorothiazide last evening. Does have chronic low back and left hip pain for which she has used topical lidocaine patch with relief. [place] that hydrocodone did not write much relief of pain for her. She status post heart catheterization 2006 with moderate CAD noted, stress test 2016. EKG 2016. Last 3 Encounter BP Readings: Date: BP: 06/14/2018 180/88 06/13/2018 213/99 05/18/2018 166/92 Presents today for follow up of blood pressure. she reports admission to [facility] hospital since last here on 06/16/2018 for chest pain reported 7 hours prior to admission. EKG showed T wave inversion in anterior leads. Troponin was negative. She was started on labetolol 400 mgBID. Pharmacological nuclear stress test was completed and negative for ischemia. She presents today reporting that she's had no further chest pain since discharge home no shortness of breath. She reported nausea while in hospital but none since discharge. She is feeling a bit fatigued. She is able to walk with her home without difficulty, chest pain or shortness of breath. She reports taking labetalol 200 mg twice a day since discharge, not 400 mg twice a day. She has not checked blood pressures since discharge, she will be picking up a blood pressure monitor seen. She has sublingual nitroglycerin to take if needed. She reports she did not take any prior to the ER visit, had just picked them up but not taken any. Last 14 Encounter BP Readings: Date: BP: 06/19/2018 132/80 06/14/2018 202/83[TruBP average[ 06/13/2018 213/99 05/18/2018 166/92 04/24/2018 196/84 01/27/2018 132/80 01/19/2018 201/86 10/18/2017 150/88 09/01/2017 134/88 08/04/2017 187/84 06/07/2017 132/88 05/26/2017 130/80 05/03/2017 140/72 04/26/2017 160/72 No recent hospital or ED visits. No new medical problems or medications. Able to obtain medications. No problems with taking medications or note side effects. PAST MEDICAL HISTORY Diagnosis Date - Allergic rhinitis, cause unspecified 03/31/2005 - Chronic hepatitis C without hepatic coma (HCC) 03/27/2017 failed to respond to treatment started March 2016; Genotype 2; based on history-- from blood transfusion - Coronary atherosclerosis of unspecified type of vessel, [place] or graft 12/12/2006 50% lesion in LAD as seen on heart cath 11/29/2006 - Esophageal reflux - Glaucoma 07/29/10 chronic angle closure glaucoma (treated by Dr. 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) 09/05/2014 - Type II or unspecified type diabetes mellitus without mention of complication, not stated as uncontrolled - Unspecified essential hypertension PAST SURGICAL HISTORY Procedure Laterality Date - COLONOSCOP W/ OR W/O [facility] SPEC 1998 Colonoscopy - COLONOSCOP W/ OR W/O [facility] SPEC 09/15/11 repeat 10 years - PAST SURGICAL HISTORY OF left knee arthroscopy - PAST SURGICAL HISTORY OF 07/22/2010 LPI Right Eye - REPAIR ROTATOR CUFF,ACUTE 1996 Rotator cuff repair-right - TOTAL ABDOM HYSTERECTOMY Hysterectomy, JONATHAN FAMILY HISTORY Problem Relation Age of Onset - Heart Mother - Cancer Brother prostate cancer - other (htn) Sister - Diabetes Brother Social History Substance Use Topics - Smoking status: Former Smoker Packs/day: 0.50 Years: 10.00 Types: Cigarettes Quit date: 07/11/1999 - Smokeless tobacco: Never Used - Alcohol use No ALLERGIES: ALLERGIES Allergen Reactions - Bentyl [Dicyclomine] Mental Status Change difficulty thinking Caused her to take extra insulin because did not remember taking it - Byetta [Exenatide] GI Upset - Cyclobenzaprine Other: See Comments Vaginal itich - Doxycycline Vomiting - Metformin GI Upset - Neurontin [Gabapent* Intolerance bad dreams - Nsaids (Non-Steroid* GI Upset Avoids all NSAIDs because upsets her stomach MEDICATIONS Hydrochlorothiazide 12.5 mg capsule Take twice daily nitroglycerin sublingual (NITROQUICK) 0.4 mg SL tablet Dissolve 1 tablet under the tongue as needed. DISSOLVE ON TONGUE FOR CHEST PAIN. IF NO PAIN RELIEF, CALL 911 insulin detemir U-100 (LEVEMIR FLEXTOUCH U-100 INSULN) 100 unit/mL (3 mL) inpn injection Inject 16 units subcutaneously every morning;inject 12 units subcutaneously every evening. Adjust as directed lidocaine (LIDODERM) 5 % Apply 1 Patch as directed every 24 hours. Remove after 12 hours. Location: post-herpetic neuralgia on chest simvastatin (ZOCOR) 20 mg tablet Take 1 tablet by mouth daily at bedtime. lisinopril (ZESTRIL, PRINIVIL) 20 mg tablet Take 1 tablet by mouth twice daily. diazePAM (VALIUM) 5 mg tablet Take 0.5-1 tablets by mouth once daily as needed for up to 30 days. HYDROcodone-Acetaminophen (NORCO) 7.5-325 mg per tablet Take 1-2 tablets by mouth once daily for 30 days. as needed.Earliest Fill Date: 04/06/18 diclofenac (FLECTOR) 1.3 % topical patch Apply 1 application to affected area. On for 12 hours at a time acyclovir (ZOVIRAX) 5 % crea Apply 1 application to affected area twice daily. Location: vulvar insulin aspart U-100 (NOVOLOG FLEXPEN U-100 INSULIN) 100 unit/mL inpn Inject 10 Units subcutaneously three times daily before meals. insulin needles, DISPOSABLE, (PEN NEEDLE) 31 gauge x 5/16 ndle 1 Each four times daily. triamcinolone acetonide (KENALOG) 0.5 % cream Apply 1 application to affected area twice daily. For rash/itching. Apply sparingly. Avoid face/skin fold. blood sugar diagnostic (BLOOD GLUCOSE TEST) test strip Test blood sugar(s) 3 to 4 times daily as directed. Dx: Type 2 DM - Uncontrolled E11.65 Insulin: Yes [id number] 3.5 MG/ML-10,000 UNIT/ML-0.1% EYE DROPS codeine-guaiFENesin (ROBITUSSIN AC) 10-100 mg/5 mL syrup Take 5-10 mL by mouth four times daily as needed for Cough. May cause drowsiness. Ciclopirox (LOPROX) 8 % solution Apply 1 application to affected area daily at bedtime. Lancets (FINGERSTIX LANCETS) [facility] use as directed REVIEW OF SYSTEMS: GENERAL: Negative for: Weight loss or gain, Fever or Chills, Weakness and Sleep difficulties. Physical Examination: There were no vitals taken for this visit. BP w/Orthostatic Vitals Date and Time Orthostatic BP Orthostatic Pulse BP Pulse BP Position BP Site BP Cuff Size 06/14/18943 -- -- 180/88 84 Sitting Left Arm Regular Adult Peak Flow Date and Time PF Resp 06/14/18943 -- 16 General appearance: Well appearing, alert, in no acute distress, well-hydrated, well nourished. Skin: Skin color, texture, turgor normal, no suspicious rashes or lesions Neck: Supple, no adenopathy; thyroid symmetric, normal size, no bruits Lungs: Lungs clear to auscultation. No wheezing, rhonchi, rales Heart: RRR without murmur, gallop, or rubs. Abdomen: Abdomen soft, non-tender. Bowel sounds normal. No masses, organomegaly Extremities: No edema, skin discoloration, clubbing or cyanosis. Good capillary refill. Peripheral pulses: Normal Neuro: Gait normal. Sensation grossly intact. Reviewed chart, outside records, tests I personally interviewed, confirmed and edited the above information if obtained by others. TESTING: Glucose (mg/dL) Date Value 04/24/2018 196 Potassium (mmol/L) Date Value 04/24/2018 3.9 Sodium (mmol/L) Date Value 04/24/2018 140 Chloride (mmol/L) Date Value 04/24/2018 104 CO2 (mmol/L) Date Value 04/24/2018 24 Creatinine (mg/dL) Date Value 04/24/2018 1.03 BUN (mg/dL) Date Value 04/24/2018 21 Anion Gap (mmol/L) Date Value 04/24/2018 12 Calcium (mg/dL) Date Value 04/24/2018 8.6 Glucose (mg/dL) Date Value 04/24/2018 196 Potassium (mmol/L) Date Value 04/24/2018 3.9 Sodium (mmol/L) Date Value 04/24/2018 140 Chloride (mmol/L) Date Value 04/24/2018 104 CO2 (mmol/L) Date Value 04/24/2018 24 Creatinine (mg/dL) Date Value 04/24/2018 1.03 BUN (mg/dL) Date Value 04/24/2018 21 Anion Gap (mmol/L) Date Value 04/24/2018 12 Calcium (mg/dL) Date Value 04/24/2018 8.6 Protein, Total (g/dL) Date Value 04/24/2018 6.8 Albumin (g/dL) Date Value 04/24/2018 3.5 Bilirubin, Total (mg/dL) Date Value 04/24/2018 0.4 Alkaline Phosphatase (U/L) Date Value 04/24/2018 61 AST (U/L) Date Value 04/24/2018 23 ALT (U/L) Date Value 04/24/2018 12 Hemoglobin (g/dL) Date Value 04/24/2018 13.2 Hematocrit (%) Date Value 04/24/2018 42.3 WBC (k/uL) Date Value 04/24/2018 8.46 Cholesterol, Total (mg/dL) Date Value 09/08/2017 184 HDL Cholesterol (mg/dL) Date Value 09/08/2017 57 LDL Cholesterol (mg/dL) Date Value 09/08/2017 113 Triglyceride (mg/dL) Date Value 09/08/2017 70 Hemoglobin A1C Date Value Ref Range Status 04/24/2018 9.7 (H) 4.3 - 5.6 % Final 01/17/2018 8.0 (H) 4.3 - 5.6 % Final 09/08/2017 8.0 (H) 4.3 - 5.6 % Final 06/06/2017 9.4 (H) 4.3 - 5.6 % Final Comment: [place] [employer] guidelines indicate that patients with HgbA1c in the range 5.7-6.4% are at increased risk for development of diabetes, and intervention by lifestyle modification may be beneficial. HgbA1c greater or equal to 6.5% is considered diagnostic of diabetes. 04/04/2017 8.6 (H) 4.3 - 5.6 % Final Comment: [place] [employer] guidelines indicate that patients with HgbA1c in the range 5.7-6.4% are at increased risk for development of diabetes, and intervention by lifestyle modification may be beneficial. HgbA1c greater or equal to 6.5% is considered diagnostic of diabetes. Ejection Fraction - Result: 66 % Date: 09/27/2014 Time: 11:15:00 IMPRESSION: Ms. Lord is a 67 year old woman with history of diabetes currently poorly controlled, moderate coronary artery disease by 2006 heart catheterization, negative stress test 2017 who presented last week with uncontrolled blood pressure. After my examination and review of data, I make the following recommendations. PLAN AND RECOMMENDATIONS: 1. . Essential hypertension - ICD9: 401.9, ICD10: I10 Since last here she was admitted to [facility] with chest pain and elevated blood pressure. Addition of labetalol was made to her medications, blood pressure is currently well controlled without chest pain or shortness of breath - good control - HYDROCHLOROTHIAZIDE 12.5 MG CAPSULE - ECG COMPLETE W INTERPRETATION Continue with lisinopril 20 mg morning and evening Continue with hydrochlorothiazide 12.5 mg once daily She was discharged on 400 mg of labetalol twice daily however has been taking 200 mg twice daily. Blood pressure is well-controlled with 200 mg by labetolol twice daily, will continue with this dose. Keep appointment with Abrahan Galvan MD Keep appt with Dr. Sarthak MEREDITH for concerning symptoms is advised / discussed Advised to go to ER if develops chest pain, shortness of breath, or severe worsening of symptoms. Discussed risks, benefits, alternatives, and potential side effects of medications. Ms. Lord expressed understanding and agreed with the plan. Young Mcintosh APRN.CNS CNOV Observed: 06/19/2018 Status: COMPLETED Source: [place] 8:20 AM [facility] REPOSITORY Office Visit (INTMWS) TORI LORD ([id number]) 1950 F Date Time Provider Department 06/19/18 8:20 AM YOUNG MCINTOSH ([place]) INTMWS During your visit today, we recorded the following information about you: Pulse Respiration Blood pressure Weight 72/minute 16/minute 132/80 81.6 kg Young Mcintosh APRN.CNS 06/19/2018 9:15 AM Signed OUTPATIENT VISIT DATE June 19, 2018 OUTPATIENT VISIT TYPE ESTABLISHED PRIMARY CARE PHYSICIAN: Abrahan Galvan MD CHIEF COMPLAINT: Patient presents with: Hospital F/U History of Present Illness: Tori Lord is a 67 year old female who was last seen June 14, 2018. 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 It was noted she was not taking amlodipine previously ordered. Continues with lisinopril 20 mg twice daily. Presents today reporting that she took one dose of 12.5 mg of hydrochlorothiazide last night and this morning. She notes over the last 3 weeks she has intermittently had chest pain when [place] her which has relieved with sitting and resting for a few minutes. Currently without chest pain or shortness of breath. No palpitations or edema. She has noted a headache which improved with taking hydrochlorothiazide last evening. Does have chronic low back and left hip pain for which she has used topical lidocaine patch with relief. [place] that hydrocodone did not write much relief of pain for her. She status post heart catheterization 2006 with moderate CAD noted, stress test 2016. EKG 2016. Last 3 Encounter BP Readings: Date: BP: 06/14/2018 180/88 06/13/2018 213/99 05/18/2018 166/92 Presents today for follow up of blood pressure. she reports admission to [facility] hospital since last here on 06/16/2018 for chest pain reported 7 hours prior to admission. EKG showed T wave inversion in anterior leads. Troponin was negative. She was started on labetolol 400 mgBID. Pharmacological nuclear stress test was completed and negative for ischemia. She presents today reporting that she's had no further chest pain since discharge home no shortness of breath. She reported nausea while in hospital but none since discharge. She is feeling a bit fatigued. She is able to walk with her home without difficulty, chest pain or shortness of breath. She reports taking labetalol 200 mg twice a day since discharge, not 400 mg twice a day. She has not checked blood pressures since discharge, she will be picking up a blood pressure monitor seen. She has sublingual nitroglycerin to take if needed. She reports she did not take any prior to the ER visit, had just picked them up but not taken any. Last 14 Encounter BP Readings: Date: BP: 06/19/2018 132/80 06/14/2018 202/83[TruBP average[ 06/13/2018 213/99 05/18/2018 166/92 04/24/2018 196/84 01/27/2018 132/80 01/19/2018 201/86 10/18/2017 150/88 09/01/2017 134/88 08/04/2017 187/84 06/07/2017 132/88 05/26/2017 130/80 05/03/2017 140/72 04/26/2017 160/72 No recent hospital or ED visits. No new medical problems or medications. Able to obtain medications. No problems with taking medications or note side effects. PAST MEDICAL HISTORY Diagnosis Date - Allergic rhinitis, cause unspecified 03/31/2005 - Chronic hepatitis C without hepatic coma (HCC) 03/27/2017 failed to respond to treatment started March 2016; Genotype 2; based on history-- from blood transfusion - Coronary atherosclerosis of unspecified type of vessel, [place] or graft 12/12/2006 50% lesion in LAD as seen on heart cath 11/29/2006 - Esophageal reflux - Glaucoma 07/29/10 chronic angle closure glaucoma (treated by Dr. 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) 09/05/2014 - Type II or unspecified type diabetes mellitus without mention of complication, not stated as uncontrolled - Unspecified essential hypertension PAST SURGICAL HISTORY Procedure Laterality Date - COLONOSCOP W/ OR W/O [facility] SPEC 1998 Colonoscopy - COLONOSCOP W/ OR W/O [facility] SPEC 09/15/11 repeat 10 years - PAST SURGICAL HISTORY OF left knee arthroscopy - PAST SURGICAL HISTORY OF 07/22/2010 LPI Right Eye - REPAIR ROTATOR CUFF,ACUTE 1996 Rotator cuff repair-right - TOTAL ABDOM HYSTERECTOMY Hysterectomy, [facility]ONATHAN FAMILY HISTORY Problem Relation Age of Onset - Heart Mother - Cancer Brother prostate cancer - other (htn) Sister - Diabetes Brother Social History Substance Use Topics - Smoking status: Former Smoker Packs/day: 0.50 Years: 10.00 Types: Cigarettes Quit date: 07/11/1999 - Smokeless tobacco: Never Used - Alcohol use No ALLERGIES: ALLERGIES Allergen Reactions - Bentyl [Dicyclomine] Mental Status Change difficulty thinking Caused her to take extra insulin because did not remember taking it - Byetta [Exenatide] GI Upset - Cyclobenzaprine Other: See Comments Vaginal itich - Doxycycline Vomiting - Metformin GI Upset - Neurontin [Gabapent* Intolerance bad dreams - Nsaids (Non-Steroid* GI Upset Avoids all NSAIDs because upsets her stomach MEDICATIONS Hydrochlorothiazide 12.5 mg capsule Take twice daily nitroglycerin sublingual (NITROQUICK) 0.4 mg SL tablet Dissolve 1 tablet under the tongue as needed. DISSOLVE ON TONGUE FOR CHEST PAIN. IF NO PAIN RELIEF, CALL 911 insulin detemir U-100 (LEVEMIR FLEXTOUCH U-100 INSULN) 100 unit/mL (3 mL) inpn injection Inject 16 units subcutaneously every morning;inject 12 units subcutaneously every evening. Adjust as directed lidocaine (LIDODERM) 5 % Apply 1 Patch as directed every 24 hours. Remove after 12 hours. Location: post-herpetic neuralgia on chest simvastatin (ZOCOR) 20 mg tablet Take 1 tablet by mouth daily at bedtime. lisinopril (ZESTRIL, PRINIVIL) 20 mg tablet Take 1 tablet by mouth twice daily. diazePAM (VALIUM) 5 mg tablet Take 0.5-1 tablets by mouth once daily as needed for up to 30 days. HYDROcodone-Acetaminophen (NORCO) 7.5-325 mg per tablet Take 1-2 tablets by mouth once daily for 30 days. as needed.Earliest Fill Date: 04/06/18 diclofenac (FLECTOR) 1.3 % topical patch Apply 1 application to affected area. On for 12 hours at a time acyclovir (ZOVIRAX) 5 % crea Apply 1 application to affected area twice daily. Location: vulvar insulin aspart U-100 (NOVOLOG FLEXPEN U-100 INSULIN) 100 unit/mL inpn Inject 10 Units subcutaneously three times daily before meals. insulin needles, DISPOSABLE, (PEN NEEDLE) 31 gauge x 5/16 ndle 1 Each four times daily. triamcinolone acetonide (KENALOG) 0.5 % cream Apply 1 application to affected area twice daily. For rash/itching. Apply sparingly. Avoid face/skin fold. blood sugar diagnostic (BLOOD GLUCOSE TEST) test strip Test blood sugar(s) 3 to 4 times daily as directed. Dx: Type 2 DM - Uncontrolled E11.65 Insulin: Yes [id number] 3.5 MG/ML-10,000 UNIT/ML-0.1% EYE DROPS codeine-guaiFENesin (ROBITUSSIN AC) 10-100 mg/5 mL syrup Take 5-10 mL by mouth four times daily as needed for Cough. May cause drowsiness. Ciclopirox (LOPROX) 8 % solution Apply 1 application to affected area daily at bedtime. Lancets (FINGERSTIX LANCETS) Misc Misc use as directed REVIEW OF SYSTEMS: GENERAL: Negative for: Weight loss or gain, Fever or Chills, Weakness and Sleep difficulties. Physical Examination: There were no vitals taken for this visit. BP w/Orthostatic Vitals Date and Time Orthostatic BP Orthostatic Pulse BP Pulse BP Position BP Site BP Cuff Size 06/14/18943 -- -- 180/88 84 Sitting Left Arm Regular Adult Peak Flow Date and Time PF Resp 06/14/18943 -- 16 General appearance: Well appearing, alert, in no acute distress, well-hydrated, well nourished. Skin: Skin color, texture, turgor normal, no suspicious rashes or lesions Neck: Supple, no adenopathy; thyroid symmetric, normal size, no bruits Lungs: Lungs clear to auscultation. No wheezing, rhonchi, rales Heart: RRR without murmur, gallop, or rubs. Abdomen: Abdomen soft, non-tender. Bowel sounds normal. No masses, organomegaly Extremities: No edema, skin discoloration, clubbing or cyanosis. Good capillary refill. Peripheral pulses: Normal Neuro: Gait normal. Sensation grossly intact. Reviewed chart, outside records, tests I personally interviewed, confirmed and edited the above information if obtained by others. TESTING: Glucose (mg/dL) Date Value 04/24/2018 196 Potassium (mmol/L) Date Value 04/24/2018 3.9 Sodium (mmol/L) Date Value 04/24/2018 140 Chloride (mmol/L) Date Value 04/24/2018 104 CO2 (mmol/L) Date Value 04/24/2018 24 Creatinine (mg/dL) Date Value 04/24/2018 1.03 BUN (mg/dL) Date Value 04/24/2018 21 Anion Gap (mmol/L) Date Value 04/24/2018 12 Calcium (mg/dL) Date Value 04/24/2018 8.6 Glucose (mg/dL) Date Value 04/24/2018 196 Potassium (mmol/L) Date Value 04/24/2018 3.9 Sodium (mmol/L) Date Value 04/24/2018 140 Chloride (mmol/L) Date Value 04/24/2018 104 CO2 (mmol/L) Date Value 04/24/2018 24 Creatinine (mg/dL) Date Value 04/24/2018 1.03 BUN (mg/dL) Date Value 04/24/2018 21 Anion Gap (mmol/L) Date Value 04/24/2018 12 Calcium (mg/dL) Date Value 04/24/2018 8.6 Protein, Total (g/dL) Date Value 04/24/2018 6.8 Albumin (g/dL) Date Value 04/24/2018 3.5 Bilirubin, Total (mg/dL) Date Value 04/24/2018 0.4 Alkaline Phosphatase (U/L) Date Value 04/24/2018 61 AST (U/L) Date Value 04/24/2018 23 ALT (U/L) Date Value 04/24/2018 12 Hemoglobin (g/dL) Date Value 04/24/2018 13.2 Hematocrit (%) Date Value 04/24/2018 42.3 WBC (k/uL) Date Value 04/24/2018 8.46 Cholesterol, Total (mg/dL) Date Value 09/08/2017 184 HDL Cholesterol (mg/dL) Date Value 09/08/2017 57 LDL Cholesterol (mg/dL) Date Value 09/08/2017 113 Triglyceride (mg/dL) Date Value 09/08/2017 70 Hemoglobin A1C Date Value Ref Range Status 04/24/2018 9.7 (H) 4.3 - 5.6 % Final 01/17/2018 8.0 (H) 4.3 - 5.6 % Final 09/08/2017 8.0 (H) 4.3 - 5.6 % Final 06/06/2017 9.4 (H) 4.3 - 5.6 % Final Comment: [place] [employer] guidelines indicate that patients with HgbA1c in the range 5.7-6.4% are at increased risk for development of diabetes, and intervention by lifestyle modification may be beneficial. HgbA1c greater or equal to 6.5% is considered diagnostic of diabetes. 04/04/2017 8.6 (H) 4.3 - 5.6 % Final Comment: [place] [employer] guidelines indicate that patients with HgbA1c in the range 5.7-6.4% are at increased risk for development of diabetes, and intervention by lifestyle modification may be beneficial. HgbA1c greater or equal to 6.5% is considered diagnostic of diabetes. Ejection Fraction - Result: 66 % Date: 09/27/2014 Time: 11:15:00 IMPRESSION: Ms. Lord is a 67 year old woman with history of diabetes currently poorly controlled, moderate coronary artery disease by 2006 heart catheterization, negative stress test 2016 who presented last week with uncontrolled blood pressure. After my examination and review of data, I make the following recommendations. PLAN AND RECOMMENDATIONS: 1. . Essential hypertension - ICD9: 401.9, ICD10: I10 Since last here she was admitted to [facility] with chest pain and elevated blood pressure. Addition of labetalol was made to her medications, blood pressure is currently well controlled without chest pain or shortness of breath - good control - HYDROCHLOROTHIAZIDE 12.5 MG CAPSULE - ECG COMPLETE W INTERPRETATION Continue with lisinopril 20 mg morning and evening Continue with hydrochlorothiazide 12.5 mg once daily She was discharged on 400 mg of labetalol twice daily however has been taking 200 mg twice daily. Blood pressure is well-controlled with 200 mg by labetolol twice daily, will continue with this dose. Keep appointment with Abrahan Galvan MD Keep appt with Dr. Sarthak MEREDITH for concerning symptoms is advised / discussed Advised to go to ER if develops chest pain, shortness of breath, or severe worsening of symptoms. Discussed risks, benefits, alternatives, and potential side effects of medications. Ms. Lord expressed understanding and agreed with the plan. GINGER Isabel APRN.CNS 06/19/2018 9:02 AM Signed Continue with labetolol 200 mg twice daily. Referring Provider: YOUNG MCINTOSH ([facility]) [[id number]] Allergies As of Date: 06/19/2018 Noted Allergy Reaction BENTYL (DICYCLOMINE) 12/30/2016 1 - Mental Status Change Comments: difficulty thinking Caused her to take extra insulin because did not remember taking it BYETTA (EXENATIDE) 01/03/2012 8 - GI Upset CYCLOBENZAPRINE 06/28/2011 14 - Other: See Comments Comments: Vaginal itich DOXYCYCLINE 03/22/2013 11 - Vomiting METFORMIN 03/31/2005 8 - GI Upset NEURONTIN (GABAPENTIN) 10/14/2006 5 - Intolerance Comments: bad dreams NSAIDS (NON-STEROIDAL ANTI-INFLAM*10/23/2007 8 - GI Upset Comments: Avoids all NSAIDs because upsets her stomach Date Reviewed: 06/19/2018 Reviewed by: Karen Pena LPN - Fully Assessed Reason for Visit: Hospital F/U [57] Visit Diagnosis:Essential hypertension [I10] Order(s):labetalol (TRANDATE) 200 mg tabletTake 1 tablet by mouth twice daily.Disp: 180 tabletRfl: 3 Hydrochlorothiazide 12.5 mg capsuleTake dailyDisp: 60 capsuleRfl: 5 Prescriptions as of 06/19/2018 Sig: ASPIRIN 81 MG TABLET,DELAYED * Take 81 mg by mouth once maricarmen* LABETALOL 200 MG TABLET Take 1 tablet by mouth twice * HYDROCHLOROTHIAZIDE 12.5 MG C* Take daily NITROGLYCERIN 0.4 MG SUBLINGU* Dissolve 1 tablet under the t* INSULIN DETEMIR (U-100) 100 U* Inject 16 units subcutaneousl* LIDOCAINE 5 % TOPICAL PATCH Apply 1 Patch as directed norbert* SIMVASTATIN 20 MG TABLET Take 1 tablet by mouth daily * LISINOPRIL 20 MG TABLET Take 1 tablet by mouth twice * DIAZEPAM 5 MG TABLET Take 0.5-1 tablets by mouth o* HYDROCODONE 7.5 MG-ACETAMINOP* Take 1-2 tablets by mouth onc* DICLOFENAC EPOLAMINE 1.3 % TR* Apply 1 application to affect* ACYCLOVIR 5 % TOPICAL CREAM Apply 1 application to affect* INSULIN ASPART U-100 100 UNI* Inject 10 Units subcutaneousl* PEN NEEDLE, DIABETIC 31 GAUGE* 1 Each four times daily. TRIAMCINOLONE ACETONIDE 0.5 %* Apply 1 application to affect* BLOOD SUGAR DIAGNOSTIC STRIPS Test blood sugar(s) 3 to 4 ti* [id number] 3* CICLOPIROX 8 % TOPICAL SOLUTI* Apply 1 application to affect* * FINGERSTIX LANCETS use as directed CODEINE 10 MG-GUAIFENESIN 100* Take 5-10 mL by mouth four ti* Patient not taking: Reported on 04/24/2018 Problem List As Of Date 06/19/2018 Noted Resolved TRIGGER FINGER [M65.30] INVALID FOR* More... Essential hypertension [I10] INVALID FOR* More... Esophageal reflux [K21.9] INVALID FOR*01/31/2013 More... ALLERGIC RHINITIS NOS [J30.9] INVALID FOR* PERS HX OF DISEASES NEC [V13.8] INVALID FOR* More... TENOSYNOV HAND/WRIST NEC [M65.849, M65.839] INVALID FOR* JOINT CONTRACTURE-HAND [M24.549] INVALID FOR* Coronary atherosclerosis [I25.10] INVALID FOR* More... 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 Acute back pain with sciatica [M54.40] INVALID FOR* More... 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 Other instructions from your clinician: Continue with labetolol 200 mg twice daily. Prescriptions ordered this encounter Disp Refills Start End LABETALOL 200 MG TABLET 180 * 3 06/19/2018 Cmt: Hold on file until needed Route: ORAL Sig: Take 1 tablet by mouth twice daily. HYDROCHLOROTHIAZIDE 12.5 MG CAPSULE 60 c* 5 06/19/2018 Class: Med Update Sig: Take daily Medications Discontinued During This Encounter labetalol (TRANDATE) 200 mg tablet 06/19/2018 Class: Historical Med Route: ORAL Sig: Take 400 mg by mouth twice daily. Disc: Reason for discontinue is not on file. Hydrochlorothiazide 12.5 mg capsule 60 c* 5 06/14/2018 06/19/2018 Class: Med Update Sig: Take twice daily Patient taking differently: Take 12.5 mg by mouth. Take twice daily Disc: Adjust Sig - Block E-Cancel Follow-up and Disposition History Recorded Encounter Status:Closed by YOUNG WEINBERG on 06/19/18 DISCHARGE SUMMARY Observed: 06/17/2018 Status: F Source: [place] 4:59 PM [facility] [place] REPOSITORY [facility] Medical Records Department [address] [place] [address] Discharge Summary 06/17/18 1654 MR#: [id number] Acct: [id number] Name: TORI LORD Rep #: [id number] : 1950 67 From: Simon Patel DO PCP: Abrahan Galvan MD Status: DIS ELLI Y Location: [place] [address] Discharge Date and Diagnosis Date of Admission: 06/16/18 Date of Discharge: 06/16/18 - Primary Discharge Diagnosis #1 musculoskeletal chest pain #2 uncontrolled hypertension #3 type 2 diabetes #4 hyperlipidemia #5 chronic anxiety - Secondary Discharge Diagnosis Chronic Problems (Last Reviewed 06/16/18 @ 01:50 by Dae Lozano DO) Anxiety (Chronic) Chronic renal failure, stage 3 (moderate) (Chronic) Hyperlipidemia (Chronic) On statin without side effect. Enc fax seed oil capsules. Hypertension (Chronic) Initial BP elevated. Rechecked 136/80 Enc to continue to monitor diet, weight, exercise. Diabetes mellitus (Chronic) Control has improved. A1c down to 7.3 Doing fairly well with diet. Exercise has started to increase. Eating occ snack. Hepatitis C (Chronic) Angina pectoris (Chronic) Hospital Course and Treatment Operations: None Procedures: Nuclear stress test Summary of Care Provided: The patient is a 67 year old F was seen in the emergency room at [facility] with chief complaint of chest pain. She described the chest pain is a bad dull ache workup in the emergency room included an EKG which showed no ischemic changes-stable T wave inversions were noted however compared with a previous EKG, chest x-ray was unremarkable, patient's labs were unremarkable, patient's blood pressure was elevated at 196/82. Patient was placed into observation status for chest pain and uncontrolled hypertension, her blood pressure medications were adjusted, serial cardiac enzymes were obtained which remained normal, patient underwent a nuclear stress test which was negative for reversible ischemia. On 06/16/18, patient was seen and examined: On examination she appeared in good health and spirits. Vital signs as documented. Skin warm and dry and without overt rashes. Neck without JVD. Lungs clear. Heart exam notable for regular rhythm, normal sounds and absence of murmurs, rubs or gallops. Abdomen unremarkable and without evidence of organomegaly, masses, or abdominal aortic enlargement. Extremities nonedematous. Neuro: Cranial nerves II through XII are grossly intact, no focal motor deficits were noted. Psych: Patient is alert and oriented x3, she does not appear to be anxious or depressed. On 06/16/18, patient was seen and examined and felt to be stable for discharge home - Physical Exam Vital Signs Temp Pulse Resp BP Pulse Ox 97.5 F L 78 17 163/81 H 99 06/16/18 11:31 06/16/18 13:38 06/16/18 11:31 06/16/18 11:31 06/16/18 11:31 Oxygen Flow Rate (L/min) 2 Oxygen Delivery Method Room Air Weight: 82 kg Body Mass Index (BMI) 34.1 Intake and Output for Last 24 Hours Intake Total 1050 / 1050 Balance 1050 / 1050 Discharge Activity: Return to Normal Activity Weight Bearing Status: Full weight bearing Home Medications: Medications to take at Discharge Diazepam [Valium] 5 mg PO DAILY 04/15/16 Lisinopril [Zestril] 20 mg PO BID 04/15/16 Simvastatin [Zocor] 20 mg PO QHS 04/15/16 blood sugar diagnostic strips See Dose Instructions .ROUTE .MEDSUPPLY #20 ea 07/26/17 insulin aspart U- 100 100 unit/mL subcutaneous pen 10 unit SC TID ml 07/26/17 Hydrocodone Bitart/Apap 5-325 [[place] 5/325] 1 - 2 tab PO Q4H PRN PRN 3 Days #12 tab 11/02/17 Aspirin E.C. [Ecotrin] 81 mg PO DAILY@0800 tablet 06/16/18 Labetalol [Trandate (Beta Ramón)] 400 mg PO BID #120 tablet 06/16/18 hydroCHLOROthiazide [Hydrochlorothiazide] 12.5 mg PO DAILY #30 capsule 06/16/18 Following Prescrptions Were Given to Patient: hydroCHLOROthiazide [Hydrochlorothiazide] 12.5 mg PO DAILY #30 capsule Labetalol [Trandate (Beta Ramón)] 400 mg PO BID #120 tablet Primary Care Physician: Abrahan Galvan MD [Primary Care Provider] - Please follow up with your Primary Care Physician in: AT NEXT APPOINTMENT Disposition: Home Minutes spent on discharge:: 32 Patient Condition:: Stable Medical Necessity - Tobacco Use Smoking Status: Former smoker Tobacco Use: Non-smoker Meaningful Use Info Meaningful Use Diagnoses (Choose all that apply): None applicable Code Visit OBSV E AND M: 62170 Observ/hosp same date L3 06/17/18 165 <Electronically signed by Simon Patel DO> Date Simon Patel DO Cosigner Signature (if applicable): Date CC: Abrahan Galvan MD; Simon Patel DO Signed DISCHARGE INSTRUCTION Observed: 06/16/2018 Status: F Source: [place] 12:48 PM [facility] REPOSITORY [facility] Medical Records Department [address] [place] [address] Instructions for Home/Discharge Instructions 06/16/18 1245 MR#: [id number] Acct: [id number] Name: TORI LORD Rep #: [id number] : 1950 67 From: Simon Patel DO PCP: Abrahan Galvan MD Status: ADM ELLI - Discharge Diagnoses Current Active Problems: Current Active and Chronic Problems (Last Reviewed 06/16/18 @ 01:50 by Dae Lozano DO) Chest pain (Acute) Anxiety (Chronic) Chronic renal failure, stage 3 (moderate) (Chronic) You will use the following diet at home:: Calorie/Carbohydrate Controlled (specify 1200, 1400, etc) - 1800 SANDY Your food should be the consistency of: Regular Your liquids should be the consistency of: Regular/Thin Discharge Activity: Return to Normal Activity Weight Bearing Status: Full weight bearing Allergies/Adverse Reactions: Allergies metformin Allergy (Verified 06/15/18 23:19) Unknown Medications to take at Discharge Diazepam [Valium] 5 mg PO DAILY 04/15/16 Lisinopril [Zestril] 20 mg PO BID 04/15/16 Simvastatin [Zocor] 20 mg PO QHS 04/15/16 blood sugar diagnostic strips See Dose Instructions .ROUTE .MEDSUPPLY #20 ea 07/26/17 insulin aspart U- 100 100 unit/mL subcutaneous pen 10 unit SC TID ml 07/26/17 Hydrocodone Bitart/Apap 5-325 [[place] 5/325] 1 - 2 tab PO Q4H PRN PRN 3 Days #12 tab 11/02/17 Aspirin E.C. [Ecotrin] 81 mg PO DAILY@0800 tablet 06/16/18 Labetalol [Trandate (Beta Ramón)] 400 mg PO BID #120 tablet 06/16/18 hydroCHLOROthiazide [Hydrochlorothiazide] 12.5 mg PO DAILY #30 capsule 06/16/18 The following prescriptions were given: hydroCHLOROthiazide [Hydrochlorothiazide] 12.5 mg PO DAILY #30 capsule Labetalol [Trandate (Beta Ramón)] 400 mg PO BID #120 tablet Primary Care Physician: Abrahan Galvan MD [Primary Care Provider] - Please follow up with your Primary Care Physician in: AT NEXT APPOINTMENT Test Results: Test results from this visit will be discussed in further detail at your follow-up appointment, if applicable. 06/16/18 1248 <Electronically signed by Simon Patel DO> Date Simon Patel DO CC: Abrahan Galvan MD STRESS REPORT Observed: 06/16/2018 Status: F Source: [place] 11:55 AM [facility] [place] REPOSITORY [facility] Cardiovascular Services [address] [place] [address] MR#: [id number] Acct: [id number] Name: TORI LORD Rep #: [id number] : 1950 67 From: Sylvain Mcdowell MD Primary Care: Abrahan Galvan MD Status: ADM ELLI Ordering Dr: Sex: F C Stress Test Report Pharmacologic myocardial perfusion stress test. 67-year-old lady with a history of chest pain. Stress protocol: Resting EKG demonstrates normal sinus rhythm with a rate of 67 bpm T wave inversions noted in lead I, II and aVL. 0.4 mg of regadenoson was infused per usual protocol followed by rapid intravenous saline flush injection continuous EKG monitoring was performed. Patient maintained sinus rhythm throughout the recording. Post infusion patient experienced a vagal episode with bradycardia arrhythmia with a heart rate to 41 bpm with 2- 1 heart block. She recovered after being put in the Trendelenburg position back to normal sinus rhythm. She did have some nausea and emesis. The maximum heart rate was 104 bpm which was 68% of maximum predicted heart rate the maximum workload was 1 metabolic equivalent. At rest there were no ST or T wave changes noted suggest ischemia at peak infusion no ST or T wave changes were noted suggest ischemia. The resting blood pressure was 132/70 with a final blood pressure of 152/100 mmHg. Myocardial perfusion protocol. 12.0 mCi of technetium 99m sestamibi was injected at rest. 0.4 mg of regadenoson was infused per usual protocol peak infusion 34.0 mCi of technetium 99m sestamibi was injected stress images were obtained stress and rest images were reconstructed and compared in the short axis vertical long horizontal long axis. Gated images were also obtained Perfusion SPECT analysis: Review of the stress images demonstrate normal uptake of tracer noted in all areas of myocardium. The resting images similarly demonstrate normal uptake with tracer in all areas of the myocardium. No areas of reversibility are noted suggest ischemia. Gated SPECT analysis: Gated ejection fraction is 60%. Conclusion: Normal pharmacologic myocardial perfusion stress test. Preserved ejection fraction. 06/16/18 1155 <Electronically signed by Sylvain Mcdowell MD> Date Sylvain Mcdowell MD CC: Abrahan Galvan MD; Simon Patel DO Date Dictated: 06/16/181150 Date Transcribed: 06/16/181150 Delivery Stock Clerk: [place] Signed BEDSIDE GLUCOSE Collected: 06/16/2018 Status: F Source: [place] 11:36 AM [facility] REPOSITORY TYPE CODE TESTS RESULT OUT OF REFERENCE UNITS RANGE LAB L501.080 70-110 mg/dL High BEDSIDE GLU 285 Result Comment: MANAGEMENT OF PATIENT CARE PER NURSING PROTOCOL Performed By: #### L501.080 #### [facility] Point of Care [address] [place], [place] [address] BEDSIDE GLUCOSE Collected: 06/16/2018 Status: F Source: [place] 6:36 AM [facility] REPOSITORY TYPE CODE TESTS RESULT OUT OF REFERENCE UNITS RANGE LAB L501.080 70-110 mg/dL High BEDSIDE GLU 331 Result Comment: MANAGEMENT OF PATIENT CARE PER NURSING PROTOCOL Performed By: #### L501.080 #### [facility] Point of Care [address] [place] [address] PROTHROMBIN TIME W/INR Collected: 06/16/2018 Status: F Source: [place] 6:15 AM [facility] REPOSITORY TYPE CODE TESTS RESULT OUT OF RANGE REFERENCE UNITS LAB L300.4150 11.7-14.9 SECONDS Normal PROTIME 12.4 LAB L300.4200 Normal INR 0.9 Performed By: #### L300.3900, L300.4310 #### [facility] [address] [place], [address] PARTIAL THROMBOPLAST Collected: 06/16/2018 Status: F Source: [place] TIME 6:15 AM [facility] REPOSITORY TYPE CODE TESTS RESULT OUT OF RANGE REFERENCE UNITS LAB L300.4310 24.1-36.2 Seconds Normal PTT 25.6 Performed By: #### L300.3900, L300.4310 #### [facility] [address] [place], [address] TROPONIN-I Collected: 06/16/2018 Status: F Source: [place] 6:15 AM [facility] REPOSITORY Order Comment: 'TROP' Serial specimen #1, #2 or #3: 3 TYPE CODE TESTS RESULT OUT OF RANGE REFERENCE UNITS LAB L501.4010 <0.045 ng/mL Normal < 0.015 TROPONIN-I Result Comment: TROPONIN-I EXPECTED VALUES <0.045 Negative 0.045 - 0.590 Consistent with Cardiac Damage > OR = 0.600 Critical Value Not every elevated troponin is indicative of AL. These values should be used with clinical judgement in examining the patient's clinical picture for diagnosis. To establish a diagnosis of AL versus myocardial injury, there must be a demonstrated rise and/or fall in the troponin values, in addition to ischemic symptoms, EKG changes, new regional wall motion abnormality, and/or angiographical evidence. PLEASE NOTE: REFERENCE RANGES EDITED 17 Performed By: #### L501.4010 #### [facility] [address] [place], [address] TROPONIN-I Collected: 06/16/2018 Status: F Source: [place] 3:20 AM [facility] REPOSITORY Order Comment: 'TROP' Serial specimen #1, #2 or #3: 2 TYPE CODE TESTS RESULT OUT OF RANGE REFERENCE UNITS LAB L501.4010 <0.045 ng/mL Normal 0.022 TROPONIN-I Result Comment: TROPONIN-I EXPECTED VALUES <0.045 Negative 0.045 - 0.590 Consistent with Cardiac Damage > OR = 0.600 Critical Value Not every elevated troponin is indicative of AL. These values should be used with clinical judgement in examining the patient's clinical picture for diagnosis. To establish a diagnosis of AL versus myocardial injury, there must be a demonstrated rise and/or fall in the troponin values, in addition to ischemic symptoms, EKG changes, new regional wall motion abnormality, and/or angiographical evidence. PLEASE NOTE: REFERENCE RANGES EDITED 17 Performed By: #### L501.4010 #### [facility] [address] [place], [address] COMPREHENSIVE METABOLIC Collected: 06/16/2018 Status: F Source: [facility] 3:20 AM [facility] REPOSITORY TYPE CODE TESTS RESULT OUT OF RANGE REFERENCE UNITS LAB L501.0100 74-106 mg/dL High GLU 222 Result Comment: Glucose result greater than or equal to 200 mg/dL suggests DIABETES MELLITUS per A.D.A. criteria. Please note revised GLUCOSE reference range effective 2017. LAB L501.1000 7-18 mg/dL High BUN 21 LAB L501.1100 0.55-1.02 mg/dL High CREAT,SERUM 1.15 Result Comment: The validity of the calculated GFR AND GFRAA in patients over 70 years has not been determined. Clinical correlation is essential. LAB L501.1110 >60 mL/min Low EST GFR 50 Result Comment: Non- GFR Calc LAB L501.1115 >60 mL/min Normal EST GFR - AA 60 Result Comment: GFR Calc LAB L501.1255 ml/min Normal Estimated CRCL 35.33 LAB L501.1300 10-20 RATIO Normal BUN/CRE 18.3 LAB L501.1500 6.4-8. g/dL Normal 2 T PROT 7.2 LAB L501.1800 3.2-5. g/dL Low 0 ALB 3.0 LAB L501.1950 2.2-4. g/dL Normal 2 GLOB 4.2 LAB L501.2000 0.9-2. RATIO Low 4 A/G 0.7 LAB L501.2200 8.5-10 mg/dL Low .1 CA 8.1 LAB L501.4100 15-37 U/L Normal AST 19 Result Comment: Slight Hemolysis, Result may be falsely increased. LAB L501.4305 45-117 U/L Normal ALK P 70 LAB L501.4405 13-56 U/L Normal ALT 20 LAB L501.4600 0.20-1.00 mg/dL Normal T BILI 0.40 LAB L501.5300 136-145 mmol/L Normal NA 136 LAB L501.5600 3.5-5.1 mmol/L Normal K 3.9 Result Comment: Slight Hemolysis, Result may be falsely increased. LAB L501.5900 98-107 mmol/L Normal CL 101 LAB L501.6100 21.0-32.0 mmol/L Normal CO2 26.0 LAB L501.6200 5-15 Normal 9 GAP Performed By: #### L500.4050, L500.4100 #### [facility] [address] [facility] [place], [address] LIPID PROFILE Collected: 06/16/2018 Status: F Source: [place] 3:20 AM [facility] REPOSITORY TYPE CODE TESTS RESULT OUT OF RANGE REFERENCE UNITS LAB L501.4900 200 mg/dL High CHOL 215 Result Comment: <200 mg/dL Desirable 200-240 mg/dL Borderline >240 mg/dL High Risk LAB L501.5000 mg/dL Normal TRIG 126 Result Comment: The drugs N-Acetylcysteine and Metamizole may falsely depress this assay. Serum Triglycerides Reference Interval Normal <150 mg/dL Borderline high 150 - 199 mg/dL High 200 - 499 mg/dL Very High > or = 500 mg/dL LAB L501.6400 mg/dL Normal HDL 58 Result Comment: The drugs N-Acetylcysteine and Metamizole may falsely depress this assay. Reference Range HDL <40 mg/dL Low HDL Cholesterol HDL >or= 60 mg/dL High HDL Cholesterol LAB L501.6500 0-130 mg/dL High LDL 132 LAB L501.6600 5-40 mg/dL Normal VLDL 25 Performed By: #### L500.4050, L500.4100 #### [facility] [address] [place], [address] EMERGENCY DEPARTMENT Observed: 06/16/2018 Status: F Source: [place] SUMMARY 2:58 AM [facility] REPOSITORY [facility] Medical Records Department [address] [place] [address] Emergency Department Summary 06/15/18 2331 MR#: [id number] Acct: [id number] Name: TORI LORD Rep #: [id number] : 1950 67 From: Vee Hernandez MD PCP: Abrahan Galvan MD Status: ADM ELLI - ER Visit Summary Date of Service: 06/15/18 Chief Complaint: Chest pain History of Present Illness: The patient is a 67 F who presents for chest pain for approximately 7 hours. Onset was at rest, and pain is in the right chest, described as a bad dull ache. Pain waxes and wanes in intensity but has never completely gone away. It is not relieved or worsened by anything, including movement, breathing, cough, exertion or touch. Patient tried a Valium and half a Vicodin without any relief. She thought it might be a muscle spasm. She states she had similar pain about about 3 years ago but does not know what it was from. She is had a cardiac catheterization in the past and states she had a small amount of disease. She is diabetic, hypertensive, has a history of shingles but is not quite sure exactly where. She is not on any blood thinners. No history of blood clot in the lungs or legs, no recent travel or surgery. Physical Examination: Vital signs: afebrile, hemodynamically stable, no hypoxia on room air General: well nourished, well developed, in mild discomfort, clutching her right chest and breast with the left hand Skin: warm, dry, no rash, no pallor, no hyperesthesia to the right back or chest HEENT: normocephalic and atraumatic; PERRL, EOMI, moist mucous membranes Cardiovascular: regular rate and rhythm without murmurs, no peripheral edema, 2+ pulses all distal extremities Respiratory: No increased work of breathing, lungs are clear to auscultation bilaterally, no rales, rhonchi or wheezing Abdominal: Abdomen is soft, nontender with normoactive bowel sounds, no guarding or rebound, no masses MSK: Moves all extremities, no deformities, normal strength Neuro: Awake and alert, oriented 4. No facial droop, sensation and motor function intact and symmetric Test Results: Abnormal Lab Results Clinical Impression(s) from Imaging Studies Chest X-Ray 06/15/18 23:55 IMPRESSION: There is no acute cardiopulmonary disease. Other nonacute findings as outlined above. Electronically Signed: Nury Falcon MD at 0:09 EST , Service support , Chest CTA 06/16/18 01:13 IMPRESSION: No demonstrated pulmonary embolism, aneurysm, leak or arterial dissection. Mild pericardial fluid, coronary artery calcification, ossification along the aortic arch and left ventricular wall thickening. Emphysema. No pulmonary edema, congestive heart failure or confluent pneumonia. Other nonacute findings as outlined above. Electronically Signed: Nury Falcon MD at 2:44 EST , Service support , Medications Given Discontinued Medications Morphine Sulfate () 4 mg IV X1 ONE Stop: 06/16/18 00:26 Nitroglycerin (Nitrostat) 0.4 mg SUBLINGUAL Q5M MÓNICA Stop: 06/15/18 23:41 Last Admin: 06/16/18 00:04 Dose: 0.4 mg Admin: 06/15/18 23:54 Dose: 0.4 mg Admin: 06/15/18 23:38 Dose: 0.4 mg Emergency Department Course and Treatment: Patient received aspirin by EMS and 1 nitroglycerin without any change in her discomfort. EKG concerning for new T wave inversions in the anterolateral leads that were not present on an EKG from 2011. Otherwise a sinus rhythm. Chest pain workup was performed. Patient was given additional nitro. She does have a history of shingles which she thinks was on her right torso but does not equate her current pain to her post-herpetic neuralgia. Given her EKG changes, significant risk factors, and the description of the pain, cardiac etiology must be ruled out before considering postherpetic neuralgia. Patient had a troponin within normal range. Glucose elevated at 310. Creatinine of 1.22, with prior creatinine for comparison from 2011. This is likely patient's baseline. No electrolyte derangements. No leukocytosis or anemia. Chest x-ray showed no acute process. Patient has no risk factors for pulmonary embolism, no hypoxia, no tachycardia, and no tachypnea. Thus PE is low on the differential. However, she is having severe right- sided pain, constant, and patient is not PERC negative due to age. She is low risk per Well's criteria. D-dimer obtained and was elevated, even per age-adjusted criteria. CTA showed no PE or dissection. A chart review did show an EKG from 2017 that exhibited the T wave inversions present on patient's EKG today. Thus this may be baseline for her. Due to patient's significant risk factors, her right-sided chest pain, and T wave inversions on EKG, she will be admitted for further chest pain workup. Patient discussed with Dr. Lozano for admission. Treatment Plan: [] Disposition: [] Impression: right-sided chest pain, concern for ACS This note was generated with [employer] dictation software. It may contain incorrect words, spelling, and punctuation that were not noted in review of the chart prior to signing ED Disposition - Plan for ED Patient: Disposition: Acute Care Hospital [facility] Chief Complaint: Chest Pain What to do if you have Problems For any increased pain, shortness of breath, bleeding, nausea or vomiting, chest pain, or any unexpected problems, contact your Primary Care Provider. Call [facility] ([phone]) or report to the closest Emergency Room. Call 911 if necessary. 06/16/18 0258 <Electronically signed by Vee Hernandez MD> Date Vee Hernandez MD Cosigner Signature (If Indicated): Date CC: Abrahan Galvan MD HISTORY AND PHYSICAL Observed: 06/16/2018 Status: F Source: [place] EXAM 1:58 AM [facility] [place] REPOSITORY [facility] Medical Records Department [address] [place] [address] History and Physical 06/16/18 0136 MR#: [id number] Acct: [id number] Name: TORI LORD Rep #: [id number] : 1950 67 From: Dae Lozano DO PCP: Abrahan Galvan MD Status: ADM ELLI Y Location: [place] [address] Problem List (1) Chest pain Status: Acute (2) Anxiety Status: Chronic (3) Hyperlipidemia Status: Chronic Qualifiers: Comment: On statin without side effect. Enc fax seed oil capsules. (4) Hypertension Status: Chronic Comment: Initial BP elevated. Rechecked 136/80 Enc to continue to monitor diet, weight, exercise. (5) Diabetes mellitus Status: Chronic Qualifiers: Diabetes mellitus type: type 2 Comment: Control has improved. A1c down to 7.3 Doing fairly well with diet. Exercise has started to increase. Eating occ snack. (6) Cellulitis of buttock Status: Resolved (7) Hepatitis C Status: Chronic (8) Angina pectoris Status: Chronic (9) Chronic renal failure, stage 3 (moderate) Status: Chronic History of Present Illness Date of Admission: 06/16/18 Chief Complaint: r chest pain The patient is a 67 year old F with a past medical history of hypertension, diabetes mellitus type 2, hyperlipidemia, hepatitis C and reported angina pectoris who presented to the ED at [facility] on 06/15/18 c/o R side chest pain that came on at rest that AM and had been coming and going all day. The pain lasts a few seconds and it radiates around the right side and into the R lower thoracic area. She took Valium and and Vicodin at home but this did not relieve the pain. She received NTG in the ED and this also did not relieve the pain. She denies SOB and she has not had diaphoresis. She denies cough. She denies palpitations. She tells me that she has had a cardiac cath in the past and there was a tiny bit of disease in 1 artery. She has been very anxious lately because her has been in a NH for the past month and he is supposed to be coming home Tuesday. When she saw her PCP recently her BP was up over 200 systolic and this is unusual. She had a stress test a little over a year ago that was negative for ischemia and showed a normal ejection fraction. Vital signs of presentation to the emergency room were temperature 98.3, pulse rate 87, blood pressure 157/74, respiratory rate 19 and she was 97-98% saturated on room air. EKG shows normal sinus rhythm with nonspecific ST and T wave changes in the lateral precordial leads which have been present in the past. CBC was unremarkable and electrolytes were within normal limits. The BUN is 23 with a creatinine of 1.22 which is up from 0.74 in 2016. Troponin was normal at 0.022. A d-dimer was increased at 0.9 and a CTA of the chest has been ordered. Chest x-ray shows no infiltrates, pleural effusions or significant pulmonary vascular congestion. On PE she has pain with palpation of the right anterior chest that tracks along the rib, into the axilla and to the costo-vertebral angle.....the chest pain is reproducible with palpation. OMT was performed on the rib and the pt had resolution of the pain in the back but still had mild pain in the anterior chest. It was much improved. Past Medical History Past Medical History (Chronic Problems): Chronic Problems (Last Reviewed 03/07/18 @ 13:22 by Chika Matute) Anxiety (Chronic) Chronic renal failure, stage 3 (moderate) (Chronic) Hyperlipidemia (Chronic) On statin without side effect. Enc fax seed oil capsules. Hypertension (Chronic) Initial BP elevated. Rechecked 136/80 Enc to continue to monitor diet, weight, exercise. Diabetes mellitus (Chronic) Control has improved. A1c down to 7.3 Doing fairly well with diet. Exercise has started to increase. Eating occ snack. Hepatitis C (Chronic) Angina pectoris (Chronic) Medical History: Medical History (Last Reviewed 06/16/18 @ 01:50 by Dae Lozano DO) Back problem M53.9 Corneal injury S05.8X9A Diabetes type 2, controlled E11.9 Dx : 1997 Last exacerbation : DKA : never Hypoglycemic episode : never ER visit : never Hepatitis K75.9 Right wrist pain M25.531 Allergies metformin Allergy (Verified 06/15/18 23:19) Unknown Home Medications: Ambulatory Orders Medication Instructions Recorded Diazepam [Valium] 5 mg PO DAILY 04/15/16 Surgical History: Surgical History (Last Reviewed 06/16/18 @ 01:50 by Dae Lozano DO) History of total abdominal hysterectomy Z98.890, Z90.710 S/P colonoscopy Z98.890 Surgical History: hysterectomy Psychiatric History: No pertinent psych hx CAREER SERVICES ASSISTANT History: No pertinent CAREER SERVICES ASSISTANT history Lives: Spouse/ Significant Other Smoking Status: Never smoker Tobacco Use: Non-smoker Alcohol: Rare Drugs: None - *Family History Maternal Family History: Family History (Last Reviewed 06/16/18 @ 01:51 by Dae Lozano DO) Mother Arthritis Father Arthritis History Items: Heart Disease Review of Systems Constitutional: Denies: Anorexia, Chills, Fever, Weight Change HEENT: Denies: Head Aches, Sinus Congestion, Sinus Drainage Cardiovascular: Reports: Chest Pain. Denies: Edema, Light Headedness, Orthopnea, Palpitations, Syncope Respiratory: Denies: Cough, Shortness of breath at rest, Sputum production Gastrointestinal: Denies: Abdominal Pain, Diarrhea, Nausea, Vomiting Genitourinary: Denies: Dysuria Musculoskeletal: Denies: Joint Pain, Joint Tenderness Skin: Denies: Rash, Wounds Neurological: Denies: Focal weakness, Numbness, Tingling, Seizures Psychiatric: Reports: Anxiety. Denies: Depression, Homicidal Ideations, Suicidal Ideations Hematologic/ Lymphatic: Denies: Easy Bruising, Easy Bleeding, Hx of blood clot VTE Information - Inpt Only VTE Present on Admission: No VTE Mechan Device Prophylaxis: SCD's VTE Pharm Prophylaxis ordered?: Yes Patient Problems: Active and Suspected Problems (Last Reviewed 03/07/18 @ 13:22 by Chika Matute) Chest pain (Acute) - Physical Exam General: Alert, Oriented x3, Cooperative, No apparent distress, Well developed, Well nourished HEENT: Atraumatic, PERRLA, EOMI, Normocephalic Oral: Moist Mucosa Neck: Supple, No JVD, Negative Carotid Bruits Lungs: Clear to auscultation, Normal air movement Cardiovascular: Regular rate, Regular Rhythm, Normal S1, Normal S2, No murmurs, No Ectopic Activity, No rub noted, No Gallop Abdomen: Bowel Sounds Present, Soft, Non Tender Extremities: No clubbing, No cyanosis, No edema, Capillary Refill Less than 3 Seconds, Peripheral Pulses Normal, - - onychomycosis of the toenails Skin: No rashes, No breakdown Musculoskeletal: No Tenderness to Palpation of Joints or Extremities, No Muscle Wasting, - - pain with palpation of the R 6 and 7 th ribs that radiates into the axilla and around to the costovertebral angle. Palpation of this rib reproduces the chest pain Neurological: Cranial nerves II-XII grossly intact, Neuro grossly intact Psych/Mental Status: Normal Affect, Appropriate, Anxious Vital Signs Temp Pulse Resp BP Pulse Ox 98.3 F 82 20 H 168/76 H 98 06/15/18 23:20 06/16/18 01:14 06/16/18 01:14 06/16/18 01:14 06/16/18 01:14 Oxygen Delivery Method Room Air Weight: 187 lb 13.341 oz Body Mass Index (BMI) 35.4 Laboratory Tests Past 24 Hrs WBC RBC Hgb Assessment/Plan All Active Problems (Last Reviewed 03/07/18 @ 13:22 by Chika Matute) Chest pain (Acute) Cellulitis of buttock (Resolved) Diverticulitis large intestine (Resolved) Impressions 1. Chest pain - with an Abnormal EKG but, unchanged from prior EKG's. Negative stress a little over a year ago. D-Dimer elevated and CTA of the chest has been ordered. 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 However she does have multiple risk factors for CAD so will admit to a monitored bed for serial cardiac enzymes and a stress in the AM if these are negative. 2. Uncontrolled hypertension 3. Hyperlipidemia 4. Diabetes mellitus type 2 5. Morbid obesity 6. Anxiety Await the results of CTA of the chest Admit to a monitored bed on PCU ASA 81 mg PO daily SL NTG 0.4 mg PRN chest pain Serial Cardiac Enzymes Stat EKG PRN CP Chest XRAY - done nuclear Stress test in the AM if the cardiac enzymes are negative DVT prophylaxis ordered Zostrix to the anterior chest for musculoskeletal pain Code Visit OBSV Rolly AND Dae: [id number] Initial observation care L3 06/16/18 0158 <Electronically signed by Dae Lozano DO> Date M C. Sementi DO Cosigner Signature: Date (if applicable) CC: Lauren Lozano; Abrahan Galvan MD Signed CTA CHEST W/WO Observed: 06/16/2018 Status: F Source: [place] CONTRAST 1:14 AM [facility] [place] REPOSITORY [facility] Imaging Services [address] [place] [address] CTA Chest W/WO Contrast MR#: [id number] Acct: [id number] Name: TORI LORD Rep #: [id number] : 1950 F 67 From: Nury Falcon MD PCP: Abrahan Galvan MD Status: ADM ELLI Study: CTA Chest W/WO Contrast Date of Exam: 06/16/18 Exam# [id number] Ordering Dr: Vee Hernandez MD STUDY: CTA CHEST REASON FOR EXAM: Female, 67 years old. Midsternal chest pain radiating to jaw, elevated d-dimer. History of diabetes, hypertension, ascites RADIATION DOSAGE (If Supplied By Facility): CTDIvol = ( 12.65 ) mGy, DLP = ( 608.27 ) mGycm TECHNIQUE: The examination was performed with the intravenous administration of 100 ml of Isovue 370 contrast material. Post-processing of the angiographic images was performed, with multiplanar reformation and 3D reconstruction. There is obesity, the entirety of soft tissue is not imaged. Individualized dose optimization techniques were used for this CT. COMPARISON: Chest x-ray 06/15/2018. CT chest 02/04/2007 axial images only FINDINGS: Normal enhancement of the main pulmonary artery and right and left pulmonary arteries. Normal enhancement of the bilateral peripheral pulmonary arteries. There is no demonstrated pulmonary embolism. Calcification atheromatous wall thickening of the aortic arch and at the origin of the left subclavian artery. There is a bovine arch as a vascular variant. There is no demonstrated aortic dissection. Mild pericardial fluid. There are calcifications of the coronary arteries. Thickening of the left ventricular wall. Normal mediastinum. Normal hilar regions. Mild symmetric bilateral emphysema with small right, moderate sized subsegmental apical cysts/bulla. Linear changes in the lung bases felt to be chronic likely scarring, minor atelectasis in the left upper lobe.. The lungs are well expanded. Normal pulmonary parenchyma. Normal pleura. Normal chest wall structures. There are degenerative changes of thoracic spine and bilateral shoulder joint status post ORIF left shoulder. Liver is incompletely imaged but appears enlarged. CT/CTA Chest W/WO Contrast IMPRESSION: No demonstrated pulmonary embolism, aneurysm, leak or arterial dissection. Mild pericardial fluid, coronary artery calcification, ossification along the aortic arch and left ventricular wall thickening. Emphysema. No pulmonary edema, congestive heart failure or confluent pneumonia. Other nonacute findings as outlined above. Electronically Signed: Nury Falcon MD at 2:44 EST , Service support , CC: Vee Hernandez MD; Abrahan Galvan MD Delivery Stock Clerk: Signed CBC W/DIFF, AUTOMATED Collected: 06/16/2018 Status: F Source: [place] 12:05 AM [facility] REPOSITORY TYPE CODE TESTS RESULT OUT OF RANGE REFERENCE UNITS LAB L100.1000 4.4-11.0 K/mm3 Normal WBC 9.1 LAB L100.1200 4.2-5.4 M/mm3 Normal RBC 4.90 LAB L100.1300 12.0-15.0 g/dl Normal HGB 12.9 LAB L100.1400 37-47 % Normal HCT 39.4 LAB L100.1500 81-99 fL Low MCV 80.4 LAB L100.1600 27.0-32.0 pg Low MCH 26.3 LAB L100.1700 32-36 g/gl Normal MCHC 32.7 LAB L100.1810 11.6-14.6 % Normal RDW CV 14.2 LAB L100.1820 35.1-43.9 fl Normal RDW SD 41.3 LAB L100.1900 150-450 K/mm3 Normal PLT 176 LAB L100.2000 6.2-12.0 fl Normal MPV 11.6 LAB L100.2100 47-70 % Normal NEUT% 52.2 LAB L100.2200 19-41 % Normal LY% 36.0 LAB L100.2300 0-10 % Normal MONO% 8.2 LAB L100.2400 0-5 % Normal EO% 2.4 LAB L100.2500 0-1 % Normal BASO% 0.7 LAB L100.2550 0.0-0.9 % Normal IM GRAN % 0.500 Result Comment: IG% - Immature Granulocytes (promyelocytes, myelocytes and metamyelocytes) > 1% indicates that a LEFT SHIFT is Present. LAB L100.2620 2.0-7.7 X10 3/uL Normal Absolute Neut 4.8 LAB L100.2720 0.83-4.51 X10 3/ul Normal Absolute Lymph 3.29 Performed By: #### L100.0100 #### [facility] [address] [place], [address] BASIC METABOLIC Collected: 06/16/2018 Status: F Source: [place] PROFILE (BMP) 12:05 AM [facility] REPOSITORY TYPE CODE TESTS RESULT OUT OF RANGE REFERENCE UNITS LAB L501.0100 74-106 mg/dL High GLU 310 Result Comment: Glucose result greater than or equal to 200 mg/dL suggests DIABETES MELLITUS per A.D.A. criteria. Please note revised GLUCOSE reference range effective 2017. LAB L501.1000 7-18 mg/dL High BUN 23 LAB L501.1100 0.55-1.02 mg/dL High CREAT,SERUM 1.22 Result Comment: The validity of the calculated GFR AND GFRAA in patients over 70 years has not been determined. Clinical correlation is essential. LAB L501.1110 >60 mL/min Low EST GFR 47 Result Comment: Non- GFR Calc LAB L501.1115 >60 mL/min Low EST GFR - AA 56 Result Comment: GFR Calc LAB L501.1255 ml/min Normal Estimated CRCL 33.30 LAB L501.1300 10-20 RATIO Normal BUN/CRE 18.9 LAB L501.2200 8.5-10 mg/dL Low .1 CA 8.3 LAB L501.5300 136-14 mmol/L Normal 5 NA 136 LAB L501.5600 3.5-5. mmol/L Normal 1 K 3.8 LAB L501.5900 98-107 mmol/L Normal CL 100 LAB L501.6100 21.0-3 mmol/L Normal 2.0 CO2 29.0 LAB L501.6200 5-15 Normal GAP 7 Performed By: #### L500.2500, L501.4010 #### [facility] [address] [place], [address] TROPONIN-I Collected: 06/16/2018 Status: F Source: [place] 12:05 AM [facility] REPOSITORY TYPE CODE TESTS RESULT OUT OF RANGE REFERENCE UNITS LAB L501.4010 <0.045 ng/mL Normal 0.022 TROPONIN-I Result Comment: TROPONIN-I EXPECTED VALUES <0.045 Negative 0.045 - 0.590 Consistent with Cardiac Damage > OR = 0.600 Critical Value Not every elevated troponin is indicative of AL. These values should be used with clinical judgement in examining the patient's clinical picture for diagnosis. To establish a diagnosis of AL versus myocardial injury, there must be a demonstrated rise and/or fall in the troponin values, in addition to ischemic symptoms, EKG changes, new regional wall motion abnormality, and/or angiographical evidence. PLEASE NOTE: REFERENCE RANGES EDITED 17 Performed By: #### L500.2500, L501.4010 #### [facility] [address] [place], [address] PROTHROMBIN TIME W/INR Collected: 06/16/2018 Status: F Source: [place] 12:05 AM [facility] REPOSITORY TYPE CODE TESTS RESULT OUT OF RANGE REFERENCE UNITS LAB L300.4150 11.7-14.9 SECONDS Normal PROTIME 12.5 LAB L300.4200 Normal INR 0.9 Performed By: #### L300.3900, L300.4310 #### [facility] [address] [place], [address] PARTIAL THROMBOPLAST Collected: 06/16/2018 Status: F Source: [place] TIME 12:05 AM [facility] REPOSITORY TYPE CODE TESTS RESULT OUT OF RANGE REFERENCE UNITS LAB L300.4310 24.1-36.2 Seconds Normal PTT 26.9 Performed By: #### L300.3900, L300.4310 #### [facility] [address] [place], [address] HEMOGLOBIN A1C Collected: 06/16/2018 Status: F Source: [place] 12:05 AM [facility] REPOSITORY TYPE CODE TESTS RESULT OUT OF RANGE REFERENCE UNITS LAB L501.9985 4.2-6.3 % High HGB A1C 9.5 Performed By: #### L501.9985 #### [facility] [address] [place], [address] CHEST PA AND LATERAL Observed: 06/15/2018 Status: F Source: [place] 11:31 PM [facility] REPOSITORY [facility] Imaging Services [address] [place] [address] Chest PA and Lateral MR#: [id number] Acct: [id number] Name: TORI LORD Rep #: [id number] : 1950 F 67 From: Nury Falcon MD PCP: Abrahan Galvan MD Status: REG ER Study: Chest PA and Lateral Date of Exam: 06/15/18 Exam# [id number] Ordering Dr: Vee Hernandez MD STUDY: X-RAY CHEST REASON FOR EXAM: Female, 67 years old. Sternal chest pain with radiation to jaw, pain comes and goes TECHNIQUE: PA and lateral views of the chest. COMPARISON: Prior comparison studies are not available for review at this time. FINDINGS: There are superimposed monitor leads. The lungs are clear and expanded. There is no demonstrated pleural abnormality. Normal size heart. Normal mediastinum and stefany. Normal visualized pulmonary arteries. There is atherosclerotic calcification of the aortic arch with tortuosity. There are degenerative changes of the visualized thoracic spine. There is degenerative osteoarthritis of the bilateral shoulders and prior ORIF right shoulder. There is no demonstrated abnormality of the visualized soft tissue structures of the upper abdomen. RAD/Chest PA and Lateral IMPRESSION: There is no acute cardiopulmonary disease. Other nonacute findings as outlined above. Electronically Signed: Nury Falcon MD at 0:09 EST , Service support , CC: Vee Hernandez MD; Abrahan Galvan MD Delivery Stock Clerk: Signed D-DIMER QUANTITATIVE Collected: 06/15/2018 Status: F Source: [place] (DVT/PE) 12:05 AM [facility] REPOSITORY TYPE CODE TESTS RESULT OUT OF RANGE REFERENCE UNITS LAB L300.8000 0.27-0.49 FEU/ug/m High alert D-DIMER 0.92 QUANT Result Comment: D-Dimer ELEVATED (>0.49): Additional studies and clinical assessments are indicated to conclude diagnosis of: Deep Vein Thrombosis (DVT) or Pulmonary Embolism (PE) CRITICAL VALUE VERIFIED. CALLED TO [place] [id number] 06/16/18 0112 Evelyn Mishra. RESULTS READ BACK BY SAME . Performed By: #### L300.8000 #### [facility] [place], [address] ECG COMPLETE W Observed: 06/14/2018 Status: F Source: [place] INTERPRETATION 10:28 AM [facility] REPOSITORY NAME : TORI LORD PID : [id number] : 1950 Gender : Female Race : ORD : [id number] Procedure Date : Jun 14 2018 10:28:08 Edit Date : Jun 17 2018 12:58:03 Diagnosis:NORMAL SINUS RHYTHM POSSIBLE LEFT ATRIAL ENLARGEMENT ST & LATERAL T WAVE ABNORMALITY ABNORMAL ECG Confirmed by GÓMEZ BLANK D.O. ([id number]) on 06/17/2018 12:57:55 PM Ventricular Rate : 83 BPM Atrial Rate : 83 BPM P-R Interval : 162 ms QRS Duration : 78 ms Q-T Interval : 396 ms QTC Calculation(Bezet) : 465 ms P [place] : 51 degrees R [place] : -25 degrees T [place] : 142 degrees Test Reason : Location : [facility] : [facility] Overread By : GÓMEZ BLANK D.O. Edited By : GÓMEZ BLANK D.O. Referred By : YOUNG MCINTOSH Acquired by : MATTHEW PENA LPN, PROGRESS Observed: 06/14/2018 Status: COMPLETED Source: [place] 10:00 AM [facility] REPOSITORY [facility] ID: [id number] Author: Young (Leather Craftsman) Arnaldo Service: (none) Author Type: Nurse Specialist Type: Progress Notes Filed: 06/14/2018 10:47 AM Note Text: OUTPATIENT VISIT DATE June 14, 2018 OUTPATIENT VISIT TYPE ESTABLISHED PRIMARY CARE PHYSICIAN: Abrahan Galvan MD CHIEF COMPLAINT: Patient presents with: Pain: Lower back to hip History of Present Illness: Tori Lord is a 67 year old female who was last seen by of pharmacy yesterday. 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 It was noted she was not taking amlodipine previously ordered. Continues with lisinopril 20 mg twice daily. Presents today reporting that she took one dose of 12.5 mg of hydrochlorothiazide last night and this morning. She notes over the last 3 weeks she has intermittently had chest pain when walking to the [place] her which has relieved with sitting and resting for a few minutes. Currently without chest pain or shortness of breath. No palpitations or edema. She has noted a headache which improved with taking hydrochlorothiazide last evening. Does have chronic low back and left hip pain for which she has used topical lidocaine patch with relief. [place] that hydrocodone did not write much relief of pain for her. She status post heart catheterization 2006 with moderate CAD noted, stress test 2016. EKG 2016. Last 3 Encounter BP Readings: Date: BP: 06/14/2018 180/88 06/13/2018 213/99 05/18/2018 166/92 No recent hospital or ED visits. No new medical problems or medications. Able to obtain medications. No problems with taking medications or note side effects. PAST MEDICAL HISTORY Diagnosis Date - Allergic rhinitis, cause unspecified 03/31/2005 - Chronic hepatitis C without hepatic coma (HCC) 03/27/2017 failed to respond to treatment started March 2016; Genotype 2; based on history-- from blood transfusion - Coronary atherosclerosis of unspecified type of vessel, [place] or graft 12/12/2006 50% lesion in LAD as seen on heart cath 11/29/2006 - Esophageal reflux - Glaucoma 07/29/10 chronic angle closure glaucoma (treated by Dr. 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) 09/05/2014 - Type II or unspecified type diabetes mellitus without mention of complication, not stated as uncontrolled - Unspecified essential hypertension PAST SURGICAL HISTORY Procedure Laterality Date - COLONOSCOP W/ OR W/O [facility] SPEC 1998 Colonoscopy - COLONOSCOP W/ OR W/O [facility] SPEC 09/15/11 repeat 10 years - PAST SURGICAL HISTORY OF left knee arthroscopy - PAST SURGICAL HISTORY OF 07/22/2010 LPI Right Eye - REPAIR ROTATOR CUFF,ACUTE 1996 Rotator cuff repair-right - TOTAL ABDOM HYSTERECTOMY Hysterectomy, [facility]ONATHAN FAMILY HISTORY Problem Relation Age of Onset - Heart Mother - Cancer Brother prostate cancer - other (htn) Sister - Diabetes Brother Social History Substance Use Topics - Smoking status: Former Smoker Packs/day: 0.50 Years: 10.00 Types: Cigarettes Quit date: 07/11/1999 - Smokeless tobacco: Never Used - Alcohol use No ALLERGIES: ALLERGIES Allergen Reactions - Bentyl [Dicyclomine] Mental Status Change difficulty thinking Caused her to take extra insulin because did not remember taking it - Byetta [Exenatide] GI Upset - Cyclobenzaprine Other: See Comments Vaginal itich - Doxycycline Vomiting - Metformin GI Upset - Neurontin [Gabapent* Intolerance bad dreams - Nsaids (Non-Steroid* GI Upset Avoids all NSAIDs because upsets her stomach MEDICATIONS Hydrochlorothiazide 12.5 mg capsule Take 1 capsule by mouth daily or until you see the nurse practitioner this week, then dose will likely be increased to twice daily. insulin detemir U-100 (LEVEMIR FLEXTOUCH U-100 INSULN) 100 unit/mL (3 mL) inpn injection Inject 16 units subcutaneously every morning;inject 12 units subcutaneously every evening. Adjust as directed lidocaine (LIDODERM) 5 % Apply 1 Patch as directed every 24 hours. Remove after 12 hours. Location: post-herpetic neuralgia on chest simvastatin (ZOCOR) 20 mg tablet Take 1 tablet by mouth daily at bedtime. lisinopril (ZESTRIL, PRINIVIL) 20 mg tablet Take 1 tablet by mouth twice daily. diclofenac (FLECTOR) 1.3 % topical patch Apply 1 application to affected area. On for 12 hours at a time acyclovir (ZOVIRAX) 5 % crea Apply 1 application to affected area twice daily. Location: vulvar insulin aspart U-100 (NOVOLOG FLEXPEN U-100 INSULIN) 100 unit/mL inpn Inject 10 Units subcutaneously three times daily before meals. insulin needles, DISPOSABLE, (PEN NEEDLE) 31 gauge x 5/16 ndle 1 Each four times daily. triamcinolone acetonide (KENALOG) 0.5 % cream Apply 1 application to affected area twice daily. For rash/itching. Apply sparingly. Avoid face/skin fold. blood sugar diagnostic (BLOOD GLUCOSE TEST) test strip Test blood sugar(s) 3 to 4 times daily as directed. Dx: Type 2 DM - Uncontrolled E11.65 Insulin: Yes nitroglycerin sublingual (NITROQUICK) 0.4 mg SL tablet Dissolve 1 tablet under the tongue as needed. DISSOLVE ON TONGUE FOR CHEST PAIN. IF NO PAIN RELIEF, CALL 911 [id number] 3.5 MG/ML-10,000 UNIT/ML-0.1% EYE DROPS Ciclopirox (LOPROX) 8 % solution Apply 1 application to affected area daily at bedtime. Lancets (FINGERSTIX LANCETS) [facility] use as directed diazePAM (VALIUM) 5 mg tablet Take 0.5-1 tablets by mouth once daily as needed for up to 30 days. HYDROcodone-Acetaminophen (NORCO) 7.5-325 mg per tablet Take 1-2 tablets by mouth once daily for 30 days. as needed.Earliest Fill Date: 04/06/18 codeine-guaiFENesin (ROBITUSSIN AC) 10-100 mg/5 mL syrup Take 5-10 mL by mouth four times daily as needed for Cough. May cause drowsiness. REVIEW OF SYSTEMS: GENERAL: Negative for: Weight loss or gain, Fever or Chills, Weakness and Sleep difficulties. Physical Examination: BP 180/88 Pulse 84 Resp 16 Wt 180 lb (81.6kg) BP w/Orthostatic Vitals Date and Time Orthostatic BP Orthostatic Pulse BP Pulse BP Position BP Site BP Cuff Size 06/14/18943 -- -- 180/88 84 Sitting Left Arm Regular Adult Peak Flow Date and Time PF Resp 06/14/18943 -- 16 General appearance: Well appearing, alert, in no acute distress, well-hydrated, well nourished. Skin: Skin color, texture, turgor normal, no suspicious rashes or lesions Neck: Supple, no adenopathy; thyroid symmetric, normal size, no bruits Lungs: Lungs clear to auscultation. No wheezing, rhonchi, rales Heart: RRR without murmur, gallop, or rubs. Abdomen: Abdomen soft, non-tender. Bowel sounds normal. No masses, organomegaly Extremities: No edema, skin discoloration, clubbing or cyanosis. Good capillary refill. Peripheral pulses: Normal Neuro: Gait normal. Sensation grossly intact. Reviewed chart, outside records, tests I personally interviewed, confirmed and edited the above information if obtained by others. TESTING: Glucose (mg/dL) Date Value 04/24/2018 196 Potassium (mmol/L) Date Value 04/24/2018 3.9 Sodium (mmol/L) Date Value 04/24/2018 140 Chloride (mmol/L) Date Value 04/24/2018 104 CO2 (mmol/L) Date Value 04/24/2018 24 Creatinine (mg/dL) Date Value 04/24/2018 1.03 BUN (mg/dL) Date Value 04/24/2018 21 Anion Gap (mmol/L) Date Value 04/24/2018 12 Calcium (mg/dL) Date Value 04/24/2018 8.6 Glucose (mg/dL) Date Value 04/24/2018 196 Potassium (mmol/L) Date Value 04/24/2018 3.9 Sodium (mmol/L) Date Value 04/24/2018 140 Chloride (mmol/L) Date Value 04/24/2018 104 CO2 (mmol/L) Date Value 04/24/2018 24 Creatinine (mg/dL) Date Value 04/24/2018 1.03 BUN (mg/dL) Date Value 04/24/2018 21 Anion Gap (mmol/L) Date Value 04/24/2018 12 Calcium (mg/dL) Date Value 04/24/2018 8.6 Protein, Total (g/dL) Date Value 04/24/2018 6.8 Albumin (g/dL) Date Value 04/24/2018 3.5 Bilirubin, Total (mg/dL) Date Value 04/24/2018 0.4 Alkaline Phosphatase (U/L) Date Value 04/24/2018 61 AST (U/L) Date Value 04/24/2018 23 ALT (U/L) Date Value 04/24/2018 12 Hemoglobin (g/dL) Date Value 04/24/2018 13.2 Hematocrit (%) Date Value 04/24/2018 42.3 WBC (k/uL) Date Value 04/24/2018 8.46 Cholesterol, Total (mg/dL) Date Value 09/08/2017 184 HDL Cholesterol (mg/dL) Date Value 09/08/2017 57 LDL Cholesterol (mg/dL) Date Value 09/08/2017 113 Triglyceride (mg/dL) Date Value 09/08/2017 70 Hemoglobin A1C Date Value Ref Range Status 04/24/2018 9.7 (H) 4.3 - 5.6 % Final 01/17/2018 8.0 (H) 4.3 - 5.6 % Final 09/08/2017 8.0 (H) 4.3 - 5.6 % Final 06/06/2017 9.4 (H) 4.3 - 5.6 % Final Comment: [place] [employer] guidelines indicate that patients with HgbA1c in the range 5.7-6.4% are at increased risk for development of diabetes, and intervention by lifestyle modification may be beneficial. HgbA1c greater or equal to 6.5% is considered diagnostic of diabetes. 04/04/2017 8.6 (H) 4.3 - 5.6 % Final Comment: [place] [employer] guidelines indicate that patients with HgbA1c in the range 5.7-6.4% are at increased risk for development of diabetes, and intervention by lifestyle modification may be beneficial. HgbA1c greater or equal to 6.5% is considered diagnostic of diabetes. Ejection Fraction - Result: 66 % Date: 09/27/2014 Time: 11:15:00 IMPRESSION: Ms. Lord is a 67 year old woman with history of diabetes currently poorly controlled, moderate coronary artery disease by 2006 heart catheterization, negative stress test 2016 who presents with uncontrolled blood pressure After my examination and review of data, I make the following recommendations. PLAN AND RECOMMENDATIONS: 1. . Essential hypertension - ICD9: 401.9, ICD10: I10 - poor control - HYDROCHLOROTHIAZIDE 12.5 MG CAPSULE - ECG COMPLETE W INTERPRETATION Take lisinopril 20 mg morning and evening Take hydrochlorothiazide 12.5 mg morning and evening Return to clinic in 3-7 days for recheck of blood pressure Make appt with Dr. Sarthak MEREDITH for concerning symptoms is advised / discussed EKG in office today essentially unchanged from my review. 2. Midline low back pain without sciatica, unspecified chronicity - ICD9: 724.2, ICD10: M54.5 Helped with topical lidocaine, defers additional medication at this time Under stress due husbands recent illness. Advised to go to ER if develops chest pain, shortness of breath, or severe worsening of symptoms. Discussed risks, benefits, alternatives, and potential side effects of medications. Ms. Lord expressed understanding and agreed with the plan. Young Mcintosh APRN.CNS CNOV Observed: 06/14/2018 Status: COMPLETED Source: [place] 9:40 AM [facility] REPOSITORY Office Visit (INTMWS) TORI LORD ([id number]) 1950 F Date Time Provider Department 06/14/18 9:40 AM YOUNG MCINTOSH ([facility]) INTMWS During your visit today, we recorded the following information about you: Pulse Respiration Blood pressure Weight 86/minute 16/minute 202/83 81.6 kg Young Mcintosh APRN.CNS 06/14/2018 10:47 AM Signed OUTPATIENT VISIT DATE June 14, 2018 OUTPATIENT VISIT TYPE ESTABLISHED PRIMARY CARE PHYSICIAN: Abrahan Galvan MD CHIEF COMPLAINT: Patient presents with: Pain: Lower back to hip History of Present Illness: Tori Lord is a 67 year old female who was last seen by of pharmacy yesterday. 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 It was noted she was not taking amlodipine previously ordered. Continues with lisinopril 20 mg twice daily. Presents today reporting that she took one dose of 12.5 mg of hydrochlorothiazide last night and this morning. She notes over the last 3 weeks she has intermittently had chest pain when walking to the [place] her which has relieved with sitting and resting for a few minutes. Currently without chest pain or shortness of breath. No palpitations or edema. She has noted a headache which improved with taking hydrochlorothiazide last evening. Does have chronic low back and left hip pain for which she has used topical lidocaine patch with relief. [place] that hydrocodone did not write much relief of pain for her. She status post heart catheterization 2006 with moderate CAD noted, stress test 2016. EKG 2017. Last 3 Encounter BP Readings: Date: BP: 06/14/2018 180/88 06/13/2018 213/99 05/18/2018 166/92 No recent hospital or ED visits. No new medical problems or medications. Able to obtain medications. No problems with taking medications or note side effects. PAST MEDICAL HISTORY Diagnosis Date - Allergic rhinitis, cause unspecified 03/31/2005 - Chronic hepatitis C without hepatic coma (HCC) 03/27/2017 failed to respond to treatment started March 2016; Genotype 2; based on history-- from blood transfusion - Coronary atherosclerosis of unspecified type of vessel, [place] or graft 12/12/2006 50% lesion in LAD as seen on heart cath 11/29/2006 - Esophageal reflux - Glaucoma 07/29/10 chronic angle closure glaucoma (treated by Dr. 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) 09/05/2014 - Type II or unspecified type diabetes mellitus without mention of complication, not stated as uncontrolled - Unspecified essential hypertension PAST SURGICAL HISTORY Procedure Laterality Date - COLONOSCOP W/ OR W/O [facility] SPEC 1998 Colonoscopy - COLONOSCOP W/ OR W/O [facility] SPEC 09/15/11 repeat 10 years - PAST SURGICAL HISTORY OF left knee arthroscopy - PAST SURGICAL HISTORY OF 07/22/2010 LPI Right Eye - REPAIR ROTATOR CUFF,ACUTE 1996 Rotator cuff repair-right - TOTAL ABDOM HYSTERECTOMY Hysterectomy, [facility]ONATHAN FAMILY HISTORY Problem Relation Age of Onset - Heart Mother - Cancer Brother prostate cancer - other (htn) Sister - Diabetes Brother Social History Substance Use Topics - Smoking status: Former Smoker Packs/day: 0.50 Years: 10.00 Types: Cigarettes Quit date: 07/11/1999 - Smokeless tobacco: Never Used - Alcohol use No ALLERGIES: ALLERGIES Allergen Reactions - Bentyl [Dicyclomine] Mental Status Change difficulty thinking Caused her to take extra insulin because did not remember taking it - Byetta [Exenatide] GI Upset - Cyclobenzaprine Other: See Comments Vaginal itich - Doxycycline Vomiting - Metformin GI Upset - Neurontin [Gabapent* Intolerance bad dreams - Nsaids (Non-Steroid* GI Upset Avoids all NSAIDs because upsets her stomach MEDICATIONS Hydrochlorothiazide 12.5 mg capsule Take 1 capsule by mouth daily or until you see the nurse practitioner this week, then dose will likely be increased to twice daily. insulin detemir U-100 (LEVEMIR FLEXTOUCH U-100 INSULN) 100 unit/mL (3 mL) inpn injection Inject 16 units subcutaneously every morning;inject 12 units subcutaneously every evening. Adjust as directed lidocaine (LIDODERM) 5 % Apply 1 Patch as directed every 24 hours. Remove after 12 hours. Location: post-herpetic neuralgia on chest simvastatin (ZOCOR) 20 mg tablet Take 1 tablet by mouth daily at bedtime. lisinopril (ZESTRIL, PRINIVIL) 20 mg tablet Take 1 tablet by mouth twice daily. diclofenac (FLECTOR) 1.3 % topical patch Apply 1 application to affected area. On for 12 hours at a time acyclovir (ZOVIRAX) 5 % crea Apply 1 application to affected area twice daily. Location: vulvar insulin aspart U-100 (NOVOLOG FLEXPEN U-100 INSULIN) 100 unit/mL inpn Inject 10 Units subcutaneously three times daily before meals. insulin needles, DISPOSABLE, (PEN NEEDLE) 31 gauge x 5/16 ndle 1 Each four times daily. triamcinolone acetonide (KENALOG) 0.5 % cream Apply 1 application to affected area twice daily. For rash/itching. Apply sparingly. Avoid face/skin fold. blood sugar diagnostic (BLOOD GLUCOSE TEST) test strip Test blood sugar(s) 3 to 4 times daily as directed. Dx: Type 2 DM - Uncontrolled E11.65 Insulin: Yes nitroglycerin sublingual (NITROQUICK) 0.4 mg SL tablet Dissolve 1 tablet under the tongue as needed. DISSOLVE ON TONGUE FOR CHEST PAIN. IF NO PAIN RELIEF, CALL 911 [id number] 3.5 MG/ML-10,000 UNIT/ML-0.1% EYE DROPS Ciclopirox (LOPROX) 8 % solution Apply 1 application to affected area daily at bedtime. Lancets (FINGERSTIX LANCETS) Misc Misc use as directed diazePAM (VALIUM) 5 mg tablet Take 0.5-1 tablets by mouth once daily as needed for up to 30 days. HYDROcodone-Acetaminophen (NORCO) 7.5-325 mg per tablet Take 1-2 tablets by mouth once daily for 30 days. as needed.Earliest Fill Date: 04/06/18 codeine-guaiFENesin (ROBITUSSIN AC) 10-100 mg/5 mL syrup Take 5-10 mL by mouth four times daily as needed for Cough. May cause drowsiness. REVIEW OF SYSTEMS: GENERAL: Negative for: Weight loss or gain, Fever or Chills, Weakness and Sleep difficulties. Physical Examination: BP 180/88 Pulse 84 Resp 16 Wt 180 lb (81.6kg) BP w/Orthostatic Vitals Date and Time Orthostatic BP Orthostatic Pulse BP Pulse BP Position BP Site BP Cuff Size 06/14/18943 -- -- 180/88 84 Sitting Left Arm Regular Adult Peak Flow Date and Time PF Resp 06/14/18 0944 -- 16 General appearance: Well appearing, alert, in no acute distress, well-hydrated, well nourished. Skin: Skin color, texture, turgor normal, no suspicious rashes or lesions Neck: Supple, no adenopathy; thyroid symmetric, normal size, no bruits Lungs: Lungs clear to auscultation. No wheezing, rhonchi, rales Heart: RRR without murmur, gallop, or rubs. Abdomen: Abdomen soft, non-tender. Bowel sounds normal. No masses, organomegaly Extremities: No edema, skin discoloration, clubbing or cyanosis. Good capillary refill. Peripheral pulses: Normal Neuro: Gait normal. Sensation grossly intact. Reviewed chart, outside records, tests I personally interviewed, confirmed and edited the above information if obtained by others. TESTING: Glucose (mg/dL) Date Value 04/24/2018 196 Potassium (mmol/L) Date Value 04/24/2018 3.9 Sodium (mmol/L) Date Value 04/24/2018 140 Chloride (mmol/L) Date Value 04/24/2018 104 CO2 (mmol/L) Date Value 04/24/2018 24 Creatinine (mg/dL) Date Value 04/24/2018 1.03 BUN (mg/dL) Date Value 04/24/2018 21 Anion Gap (mmol/L) Date Value 04/24/2018 12 Calcium (mg/dL) Date Value 04/24/2018 8.6 Glucose (mg/dL) Date Value 04/24/2018 196 Potassium (mmol/L) Date Value 04/24/2018 3.9 Sodium (mmol/L) Date Value 04/24/2018 140 Chloride (mmol/L) Date Value 04/24/2018 104 CO2 (mmol/L) Date Value 04/24/2018 24 Creatinine (mg/dL) Date Value 04/24/2018 1.03 BUN (mg/dL) Date Value 04/24/2018 21 Anion Gap (mmol/L) Date Value 04/24/2018 12 Calcium (mg/dL) Date Value 04/24/2018 8.6 Protein, Total (g/dL) Date Value 04/24/2018 6.8 Albumin (g/dL) Date Value 04/24/2018 3.5 Bilirubin, Total (mg/dL) Date Value 04/24/2018 0.4 Alkaline Phosphatase (U/L) Date Value 04/24/2018 61 AST (U/L) Date Value 04/24/2018 23 ALT (U/L) Date Value 04/24/2018 12 Hemoglobin (g/dL) Date Value 04/24/2018 13.2 Hematocrit (%) Date Value 04/24/2018 42.3 WBC (k/uL) Date Value 04/24/2018 8.46 Cholesterol, Total (mg/dL) Date Value 09/08/2017 184 HDL Cholesterol (mg/dL) Date Value 09/08/2017 57 LDL Cholesterol (mg/dL) Date Value 09/08/2017 113 Triglyceride (mg/dL) Date Value 09/08/2017 70 Hemoglobin A1C Date Value Ref Range Status 04/24/2018 9.7 (H) 4.3 - 5.6 % Final 01/17/2018 8.0 (H) 4.3 - 5.6 % Final 09/08/2017 8.0 (H) 4.3 - 5.6 % Final 06/06/2017 9.4 (H) 4.3 - 5.6 % Final Comment: [place] [employer] guidelines indicate that patients with HgbA1c in the range 5.7-6.4% are at increased risk for development of diabetes, and intervention by lifestyle modification may be beneficial. HgbA1c greater or equal to 6.5% is considered diagnostic of diabetes. 04/04/2017 8.6 (H) 4.3 - 5.6 % Final Comment: [place] [employer] guidelines indicate that patients with HgbA1c in the range 5.7-6.4% are at increased risk for development of diabetes, and intervention by lifestyle modification may be beneficial. HgbA1c greater or equal to 6.5% is considered diagnostic of diabetes. Ejection Fraction - Result: 66 % Date: 09/27/2014 Time: 11:15:00 IMPRESSION: Ms. Lord is a 67 year old woman with history of diabetes currently poorly controlled, moderate coronary artery disease by 2006 heart catheterization, negative stress test 2016 who presents with uncontrolled blood pressure After my examination and review of data, I make the following recommendations. PLAN AND RECOMMENDATIONS: 1. . Essential hypertension - ICD9: 401.9, ICD10: I10 - poor control - HYDROCHLOROTHIAZIDE 12.5 MG CAPSULE - ECG COMPLETE W INTERPRETATION Take lisinopril 20 mg morning and evening Take hydrochlorothiazide 12.5 mg morning and evening Return to clinic in 3-7 days for recheck of blood pressure Make appt with Dr. De León ER for concerning symptoms is advised / discussed EKG in office today essentially unchanged from my review. 2. Midline low back pain without sciatica, unspecified chronicity - ICD9: 724.2, ICD10: M54.5 Helped with topical lidocaine, defers additional medication at this time Under stress due husbands recent illness. Advised to go to ER if develops chest pain, shortness of breath, or severe worsening of symptoms. Discussed risks, benefits, alternatives, and potential side effects of medications. Ms. Lord expressed understanding and agreed with the plan. Young Mcintosh APRN.BROACHING MACHINE SET UP OPERATOR Young Mcintosh APRN.CNS 06/14/2018 10:20 AM Addendum Take lisinopril 20 mg morning and evening Take hydrochlorothiazide 12.5 mg morning and evening Return to clinic in 3-7 days for recheck of blood pressure Make appt with Dr. De León Referring Provider: ABRAHAN GALVAN [[id number]] Allergies As of Date: 06/14/2018 Noted Allergy Reaction BENTYL (DICYCLOMINE) 12/30/2016 1 - Mental Status Change Comments: difficulty thinking Caused her to take extra insulin because did not remember taking it BYETTA (EXENATIDE) 01/03/2012 8 - GI Upset CYCLOBENZAPRINE 06/28/2011 14 - Other: See Comments Comments: Vaginal itich DOXYCYCLINE 03/22/2013 11 - Vomiting METFORMIN 03/31/2005 8 - GI Upset NEURONTIN (GABAPENTIN) 10/14/2006 5 - Intolerance Comments: bad dreams NSAIDS (NON-STEROIDAL ANTI-INFLAM*10/23/2007 8 - GI Upset Comments: Avoids all NSAIDs because upsets her stomach Date Reviewed: 06/14/2018 Reviewed by: Karen Pena LPN - Fully Assessed Reason for Visit: Pain [78] Cmt: Lower back to hip Primary Visit Diagnosis:Essential hypertension [I10] Other Visit Diagnosis:Midline low back pain without sciatica, unspecified chronicity [M54.5] Order(s):Hydrochlorothiazide 12.5 mg capsuleTake twice dailyDisp: 60 capsuleRfl: 5 ECG COMPLETE W INTERPRETATION [ECG01] Order #: [id number] FUTURE Prescriptions as of 06/14/2018 Sig: HYDROCHLOROTHIAZIDE 12.5 MG C* Take twice daily INSULIN DETEMIR (U-100) 100 U* Inject 16 units subcutaneousl* LIDOCAINE 5 % TOPICAL PATCH Apply 1 Patch as directed norbert* SIMVASTATIN 20 MG TABLET Take 1 tablet by mouth daily * LISINOPRIL 20 MG TABLET Take 1 tablet by mouth twice * DICLOFENAC EPOLAMINE 1.3 % TR* Apply 1 application to affect* ACYCLOVIR 5 % TOPICAL CREAM Apply 1 application to affect* INSULIN ASPART U-100 100 UNI* Inject 10 Units subcutaneousl* PEN NEEDLE, DIABETIC 31 GAUGE* 1 Each four times daily. TRIAMCINOLONE ACETONIDE 0.5 %* Apply 1 application to affect* BLOOD SUGAR DIAGNOSTIC STRIPS Test blood sugar(s) 3 to 4 ti* NITROGLYCERIN 0.4 MG SUBLINGU* Dissolve 1 tablet under the t* [id number] 3* CICLOPIROX 8 % TOPICAL SOLUTI* Apply 1 application to affect* * FINGERSTIX LANCETS use as directed DIAZEPAM 5 MG TABLET Take 0.5-1 tablets by mouth o* HYDROCODONE 7.5 MG-ACETAMINOP* Take 1-2 tablets by mouth onc* CODEINE 10 MG-GUAIFENESIN 100* Take 5-10 mL by mouth four ti* Patient not taking: Reported on 04/24/2018 Problem List As Of Date 06/14/2018 Noted Resolved TRIGGER FINGER [M65.30] INVALID FOR* More... Essential hypertension [I10] INVALID FOR* More... Esophageal reflux [K21.9] INVALID FOR*01/31/2013 More... ALLERGIC RHINITIS NOS [J30.9] INVALID FOR* PERS HX OF DISEASES NEC [V13.8] INVALID FOR* More... TENOSYNOV HAND/WRIST NEC [M65.849, M65.839] INVALID FOR* JOINT CONTRACTURE-HAND [M24.549] INVALID FOR* Coronary atherosclerosis [I25.10] INVALID FOR* More... 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 Acute back pain with sciatica [M54.40] INVALID FOR* More... 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 Other instructions from your clinician: Take lisinopril 20 mg morning and evening Take hydrochlorothiazide 12.5 mg morning and evening Return to clinic in 3-7 days for recheck of blood pressure Make appt with Dr. De León Prescriptions ordered this encounter Disp Refills Start End HYDROCHLOROTHIAZIDE 12.5 MG CAPSULE 60 c* 5 06/14/2018 Class: Med Update Sig: Take twice daily Medications Discontinued During This Encounter Hydrochlorothiazide 12.5 mg capsule 60 c* 5 06/13/2018 06/14/2018 Sig: Take 1 capsule by mouth daily or until you see the nurse practitioner this week, then dose will likely be increased to twice daily. Disc: Adjust Sig - Block E-Cancel Follow-up and Disposition History Recorded Encounter Status:Closed by YOUNG WEINBERG on 06/14/18 PROGRESS Observed: 06/13/2018 Status: COMPLETED Source: [place] 2:30 PM [facility] REPOSITORY O ID: [id number] Author: Osbaldo Byrne (Pharmacist) Service: (none) Author Type: Pharmacist Type: Progress Notes Filed: 06/13/2018 4:32 PM Note Text: Patient consents to pharmacy collaborative practice agreement. REASON FOR CONSULT: DM GOALS: A1c < 8% CONSULTING PROVIDER: Dr. Galvan Date of Consult: 05/18/18 Tori Lord is a 67 year old female was last seen by PCP, Dr. Abrahan Galvan MD for an SMA on 05/18/18 - . Subjective: Patient is presenting today for initial pharmacotherapy management appointment for diabetes. INTERIM HISTORY: Patient reports her lower left abdomen and lower back are inflamed Reports she used to have issues with right side - was examined by physician and she said it was fine Using a lidocaine patch and diclofenac patch on her side and back - sometimes eating makes her uncomfortable Reports this has been going on for about 3 weeks Reports she is no longer interested in using a CGM - doesn't want a needle stuck in her Patient does not like needles currently in rehab facility - hopefully getting out on Tuesday and will come home Reports having a lot of stress Reports occasional heart flutter/palpitations - comes and goes; says this is normal Occasionally has headaches Does not check BP at home Patient says her goals are to get off ALL medications Patient does NOT want to start any new medications or adjust doses of medications Patient only wants to work on diet, exercise, and stress mngt to control DM Past DM medications: Metformin (GI upset) Exenatide (GI upset) ? Current DM regimen: Insulin detemir 16 units QAM and 11 units QPM (taking 12 units in the evening) Insulin aspart 10 units TIDAC (taking 11 units with breakfast and 9 units with dinner; usually skips eating lunch) ? Current HTN regimen: Lisinopril 20mg BID Amlodipine 5mg daily Preventative Medications: ? On MARLENE/ARB: Yes ? On Statin: Yes ? On ASA: No ROS: ? Patient denies CP, SOB, JACK, blurred vision, dizziness or lightheadedness ? Patient denies symptoms of hypoglycemia (sweating, anxiety, palpitations, hunger, and tremor) ? Patient denies symptoms of hyperglycemia (polyuria, polydipsia, polyphagia) ? Patient denies potential medication adverse effects DIET/EXERCISE/SOCIAL Hx: ? Usually eats 2 meals/day ? Making dietary changes over past 3 weeks because of side/back/belly pain (eating smaller amounts) ? Breakfast: Glucerna ? Lunch: small piece of fish and vegetables (broccoli, cauliflower) today; usually skips lunch ? Dinner: Salads; apple and cheese last night; ox tails with carrots ? Snacks: denies snacks ? Beverages: water, 1 small orange crush or Sadiq Cash - she splits it with ; V8 juice (small jar - also splits with ) ? Exercise: walks a lot (walks 1/2 mile to see at rehab facility) - has been walking ~1 mile/day for past couple months ? Tobacco: none ? Alcohol: none ? Illicits: none MEDICATIONS: ? Pill bottles are not present. ? Adherence: denies missed doses. ? [facility]acy: [facility] ([place]) ? Rx coverage: Medicare ([employer]) ? Affordability: (insulins can be pricey) - in donut hole ? Diabetes supplies: One Touch Ultra ? 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) Trigger Middle Finger of Left Hand Diabetic Nephropathy Associated With Type 2 Diabetes Mellitus (Hcc) Acute Back Pain With Sciatica Chronic Hepatitis C Without Hepatic Coma (Hcc) PAST MEDICAL HISTORY Diagnosis Date - Allergic rhinitis, cause unspecified 03/31/2005 - Chronic hepatitis C without hepatic coma (HCC) 03/27/2017 failed to respond to treatment started March 2016; Genotype 2; based on history-- from blood transfusion - Coronary atherosclerosis of unspecified type of vessel, [place] or graft 12/12/2006 50% lesion in LAD as seen on heart cath 11/29/2006 - Esophageal reflux - Glaucoma 07/29/10 chronic angle closure glaucoma (treated by Dr. 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) 09/05/2014 - Type II or unspecified type diabetes mellitus without mention of complication, not stated as uncontrolled - Unspecified essential hypertension ALLERGIES Allergen Reactions - Bentyl [Dicyclomine] Mental Status Change difficulty thinking Caused her to take extra insulin because did not remember taking it - Byetta [Exenatide] GI Upset - Cyclobenzaprine Other: See Comments Vaginal itich - Doxycycline Vomiting - Metformin GI Upset - Neurontin [Gabapent* Intolerance bad dreams - Nsaids (Non-Steroid* GI Upset Avoids all NSAIDs because upsets her stomach Medication List Medication Directions Comments Action/Plan acyclovir (ZOVIRAX) 5 % crea Apply 1 application to affected area twice daily. Location: vulvar amLODIPine (NORVASC) 5 mg tablet Take 1 tablet by mouth once daily. Reports not taking; says it made her feel funny; refuses to take it Removed from med list blood sugar diagnostic (BLOOD GLUCOSE TEST) test strip Test blood sugar(s) 3 to 4 times daily as directed. Dx: Type 2 DM - Uncontrolled E11.65 Insulin: Yes Ciclopirox (LOPROX) 8 % solution Apply 1 application to affected area daily at bedtime. codeine-guaiFENesin (ROBITUSSIN AC) 10-100 mg/5 mL syrup Take 5-10 mL by mouth four times daily as needed for Cough. May cause drowsiness. Patient not taking: Reported on 04/24/2018 Has for PRN use; not used often diazePAM (VALIUM) 5 mg tablet Take 0.5-1 tablets by mouth once daily as needed for up to 30 days. Occasionally takes 1/2 tab; used last week; reports this is for thumping in chest; takes maybe 3 doses/mo diclofenac (FLECTOR) 1.3 % topical patch Apply 1 application to affected area. On for 12 hours at a time Patient not taking: Reported on 04/24/2018 using HYDROcodone-Acetaminophen (NORCO) 7.5-325 mg per tablet Take 1-2 tablets by mouth once daily for 30 days. as needed. Earliest Fill Date: 9/27/18 Takes PRN insulin aspart U-100 (NOVOLOG FLEXPEN U-100 INSULIN) 100 unit/mL inpn Inject 10 Units subcutaneously three times daily before meals. Taking 11 units in AM and 9 units with dinner insulin detemir U-100 (LEVEMIR FLEXTOUCH U-100 INSULN) 100 unit/mL (3 mL) inpn injection Inject 16 units subcutaneously every morning;inject 11 units subcutaneously every evening. Adjust as directed Has been taking 16 units QAM and 12 units QPM (couldn't remember what dose she should have been using in the evening) insulin needles, DISPOSABLE, (PEN NEEDLE) 31 gauge x 5/16 ndle 1 Each four times daily. Lancets (FINGERSTIX LANCETS) [facility] as directed lidocaine (LIDODERM) 5 % Apply 1 Patch as directed every 24 hours. Remove after 12 hours. Location: post-herpetic neuralgia on chest Uses PRN lisinopril (ZESTRIL, PRINIVIL) 20 mg tablet Take 1 tablet by mouth twice daily. Taking BID [id number] 3.5 MG/ML-10,000 UNIT/ML-0.1% EYE DROPS None Entered nitroglycerin sublingual (NITROQUICK) 0.4 mg SL tablet Dissolve 1 tablet under the tongue as needed. DISSOLVE ON TONGUE FOR CHEST PAIN. IF NO PAIN RELIEF, CALL 911 Hasn't needed to use at all this year simvastatin (ZOCOR) 20 mg tablet Take 1 tablet by mouth daily at bedtime. taking triamcinolone acetonide (KENALOG) 0.5 % cream Apply 1 application to affected area twice daily. For rash/itching. Apply sparingly. Avoid face/skin fold. Rx meds not listed in EPIC: none OTCs: occasionally uses cold packs Herbals: none GLYCEMIC CONTROL: ? Glucometer present at visit: No ? SMBG?s: checking 2x/week - hasn't checked BG since April; reports numbers were in 200s; doesn't like needles ? Hypoglycemia: occasionally feels low - says she felt low in the 250s ? How corrected: carries orange in purse Objective: VITALS: BP 186/96 Pulse 81 Recheck after relaxing in dark room for 5 mins: 213/99; recheck after relaxing another 5 minutes: 210/99 Last 3 Encounter BP Readings: Date: BP: 05/18/2018 166/92 04/24/2018 196/84 01/27/2018 132/80 Wt: 83.6 kg (184 lb 3.2 oz) BMI: 34.80 kg/(m2) LABS Lab Results Component Value Date HBA1C 9.7 04/24/2018 HBA1C 8.0 01/17/2018 HBA1C 8.0 09/08/2017 CMP: Glucose 196 04/24/2018 BUN 21 04/24/2018 Creatinine 1.03 04/24/2018 Sodium 140 04/24/2018 Potassium 3.9 04/24/2018 Chloride 104 04/24/2018 CO2 24 04/24/2018 Protein, Total 6.8 04/24/2018 Albumin 3.5 04/24/2018 Calcium 8.6 04/24/2018 Alkaline Phosphatase 61 04/24/2018 Bilirubin, Total 0.4 04/24/2018 AST 23 04/24/2018 ALT 12 04/24/2018 eGFR 53 (per 04/24/18 CMP) ? Estimated CrCL 51.2 mL/min (calculated using Ht 154.9 cm, adjusted Wt 62.1 kg, sCr 1.03 mg/dL, using [place]) Last Lipid Panel Lab Results Component Value Date CHOL 184 09/08/2017 Lab Results Component Value Date HDL 57 09/08/2017 Lab Results Component Value Date LDL 113 09/08/2017 Lab Results Component Value Date TG 70 09/08/2017 Albumin/Creat Ratio (mg/g) Date Value 09/08/2017 1,507 (H) PHARMACOTHERAPY ASSESSMENT/PLAN: 1. 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) - ICD9: 250.52, 365.44, ICD10: E11.65, E11.39, H42 (primary diagnosis) A1c goal <8%; uncontrolled (last A1c 9.7%) and due for recheck next mo; patient hates needles; not checking BG frequently but reports adherence to insulin; patient's expectations are to be able to completely eliminate medications so she can manage DM through only diet and exercise; PharmD explained how DM control is heavily based on both lifestyle behaviors but also genetics and it is unlikely that patient will ever be able to have good control of BG without any medication; PharmD proposed the idea of trying other oral medications and working on lifestyle modifications to potentially cut back on insulin doses (and perhaps eliminate mealtime insulin eventually) but patient refused to consider that idea - she is only willing to remove medications or decrease doses; PharmD discussed the risks of consistently elevated BG readings on health and stressed the importance of medications in mngt but patient resistant to consider additional/alternative therapies; patient in past did not tolerate metformin - patient would likely greatly benefit from metformin if she were willing to retrial med at a low dose with the ER formulation - did not discuss today because of patient adamantly dismissing the idea of new medications; based on patient preference, will not make med changes today - patient willing to check BG BID to evaluate improvement in BG control through lifestyle modifications; PharmD reviewed appropriate identification and mngt of hypoglycemia; patient also not interested in CGM anymore because doesn't want a needle stuck inside of her - CONTINUE insulin detemir 16 units QAM and 12 units QPM and insulin aspart 10 units TIDAC - Ordered A1c and BMP for next mo - Patient requesting to return to participate in shared medical appt on 06/22 - patient talked with front office associate to schedule appt 2. Essential hypertension - ICD9: 401.9, ICD10: I10 BP goal <140/90; BP highly elevated on initial check in office (per BP ZOE, SBP>200); upon chart review, BP has been elevated in 200s in the past; patient reports adherence to lisinopril but has not been taking amlodipine because of ADEs; since BP was so elevated, PharmD spoke with a nurse practitioner who came and listened to patient and took brief hx - patient asymptomatic in office and Admissions Specialist advised to start HCTZ today and advised pt to go to ED if starts noticing any chest pain, heart palpitations, dizziness, SOB, etc - patient said she understood; Admissions Specialist also requested that patient schedule f/u appt with her later this week; patient also counseled to be sure to take first dose of HCTZ tonight then to take another dose tomorrow AM prior to appt with Admissions Specialist; renal fxn and electrolytes WNL and appropriate to initiate thiazide diuretic - INITIATE HCTZ 12.5mg daily, may increase to BID dosing if needed based on BP result at f/u appt - CONTINUE lisinopril 20mg BID Patient scheduled to see Leiv, Young Mcintosh, tomorrow morning for BP check and back/side/abdominal pain. Patient is scheduled to see PCP for SMA on 06/22/18 - will schedule next PharmD appt at that time. Patient verbalized understanding of instructions. Osbaldo Byrne PharmD, [facility] Primary Care Clinical Pharmacist [place] CNOV Observed: 06/13/2018 Status: COMPLETED Source: [place] 2:30 PM [facility] REPOSITORY Office Visit ([facility]) TORI LORD ([id number]) 1950 F Date Time Provider Department 06/13/18 2:30 PM MELISSA (PHARMACIST)OSBALDO During your visit today, we recorded the following information about you: Pulse Blood pressure 82/minute 213/99 NO VINCENT 06/13/2018 4:32 PM Signed Patient consents to pharmacy collaborative practice agreement. REASON FOR CONSULT: DM GOALS: A1c < 8% CONSULTING PROVIDER: Dr. Galvan Date of Consult: 05/18/18 Tori Lord is a 67 year old female was last seen by PCP, Dr. Abrahan Galvan MD for an SMA on 05/18/18 - . Subjective: Patient is presenting today for initial pharmacotherapy management appointment for diabetes. INTERIM HISTORY: Patient reports her lower left abdomen and lower back are inflamed Reports she used to have issues with right side - was examined by physician and she said it was fine Using a lidocaine patch and diclofenac patch on her side and back - sometimes eating makes her uncomfortable Reports this has been going on for about 3 weeks Reports she is no longer interested in using a CGM - doesn't want a needle stuck in her Patient does not like needles currently in rehab facility - hopefully getting out on Tuesday and will come home Reports having a lot of stress Reports occasional heart flutter/palpitations - comes and goes; says this is normal Occasionally has headaches Does not check BP at home Patient says her goals are to get off ALL medications Patient does NOT want to start any new medications or adjust doses of medications Patient only wants to work on diet, exercise, and stress mngt to control DM Past DM medications: Metformin (GI upset) Exenatide (GI upset) ? Current DM regimen: Insulin detemir 16 units QAM and 11 units QPM (taking 12 units in the evening) Insulin aspart 10 units TIDAC (taking 11 units with breakfast and 9 units with dinner; usually skips eating lunch) ? Current HTN regimen: Lisinopril 20mg BID Amlodipine 5mg daily Preventative Medications: ? On MARLENE/ARB: Yes ? On Statin: Yes ? On ASA: No ROS: ? Patient denies CP, SOB, JACK, blurred vision, dizziness or lightheadedness ? Patient denies symptoms of hypoglycemia (sweating, anxiety, palpitations, hunger, and tremor) ? Patient denies symptoms of hyperglycemia (polyuria, polydipsia, polyphagia) ? Patient denies potential medication adverse effects DIET/EXERCISE/SOCIAL Hx: ? Usually eats 2 meals/day ? Making dietary changes over past 3 weeks because of side/back/belly pain (eating smaller amounts) ? Breakfast: Glucerna ? Lunch: small piece of fish and vegetables (broccoli, cauliflower) today; usually skips lunch ? Dinner: Salads; apple and cheese last night; ox tails with carrots ? Snacks: denies snacks ? Beverages: water, 1 small orange crush or Sadiq Cash - she splits it with ; V8 juice (small jar - also splits with ) ? Exercise: walks a lot (walks 1/2 mile to see at rehab facility) - has been walking ~1 mile/day for past couple months ? Tobacco: none ? Alcohol: none ? Illicits: none MEDICATIONS: ? Pill bottles are not present. ? Adherence: denies missed doses. ? Pharmacy: [facility] ([place]) ? Rx coverage: Medicare ([employer]) ? Affordability: (insulins can be pricey) - in donut hole ? Diabetes supplies: One Touch Ultra ? 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) Trigger Middle Finger of Left Hand Diabetic Nephropathy Associated With Type 2 Diabetes Mellitus (Hcc) Acute Back Pain With Sciatica Chronic Hepatitis C Without Hepatic Coma (Hcc) PAST MEDICAL HISTORY Diagnosis Date - Allergic rhinitis, cause unspecified 03/31/2005 - Chronic hepatitis C without hepatic coma (HCC) 03/27/2017 failed to respond to treatment started March 2016; Genotype 2; based on history-- from blood transfusion - Coronary atherosclerosis of unspecified type of vessel, [place] or graft 12/12/2006 50% lesion in LAD as seen on heart cath 11/29/2006 - Esophageal reflux - Glaucoma 07/29/10 chronic angle closure glaucoma (treated by Dr. 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) 09/05/2014 - Type II or unspecified type diabetes mellitus without mention of complication, not stated as uncontrolled - Unspecified essential hypertension ALLERGIES Allergen Reactions - Bentyl [Dicyclomine] Mental Status Change difficulty thinking Caused her to take extra insulin because did not remember taking it - Byetta [Exenatide] GI Upset - Cyclobenzaprine Other: See Comments Vaginal itich - Doxycycline Vomiting - Metformin GI Upset - Neurontin [Gabapent* Intolerance bad dreams - Nsaids (Non-Steroid* GI Upset Avoids all NSAIDs because upsets her stomach Medication List Medication Directions Comments Action/Plan acyclovir (ZOVIRAX) 5 % crea Apply 1 application to affected area twice daily. Location: vulvar amLODIPine (NORVASC) 5 mg tablet Take 1 tablet by mouth once daily. Reports not taking; says it made her feel funny; refuses to take it Removed from med list blood sugar diagnostic (BLOOD GLUCOSE TEST) test strip Test blood sugar(s) 3 to 4 times daily as directed. Dx: Type 2 DM - Uncontrolled E11.65 Insulin: Yes Ciclopirox (LOPROX) 8 % solution Apply 1 application to affected area daily at bedtime. codeine-guaiFENesin (ROBITUSSIN AC) 10-100 mg/5 mL syrup Take 5-10 mL by mouth four times daily as needed for Cough. May cause drowsiness. Patient not taking: Reported on 04/24/2018 Has for PRN use; not used often diazePAM (VALIUM) 5 mg tablet Take 0.5-1 tablets by mouth once daily as needed for up to 30 days. Occasionally takes 1/2 tab; used last week; reports this is for thumping in chest; takes maybe 3 doses/mo diclofenac (FLECTOR) 1.3 % topical patch Apply 1 application to affected area. On for 12 hours at a time Patient not taking: Reported on 04/24/2018 using HYDROcodone-Acetaminophen (NORCO) 7.5-325 mg per tablet Take 1-2 tablets by mouth once daily for 30 days. as needed. Earliest Fill Date: 04/06/18 Takes PRN insulin aspart U-100 (NOVOLOG FLEXPEN U-100 INSULIN) 100 unit/mL inpn Inject 10 Units subcutaneously three times daily before meals. Taking 11 units in AM and 9 units with dinner insulin detemir U-100 (LEVEMIR FLEXTOUCH U-100 INSULN) 100 unit/mL (3 mL) inpn injection Inject 16 units subcutaneously every morning;inject 11 units subcutaneously every evening. Adjust as directed Has been taking 16 units QAM and 12 units QPM (couldn't remember what dose she should have been using in the evening) insulin needles, DISPOSABLE, (PEN NEEDLE) 31 gauge x 5/16 ndle 1 Each four times daily. Lancets (FINGERSTIX LANCETS) Misc [facility] use as directed lidocaine (LIDODERM) 5 % Apply 1 Patch as directed every 24 hours. Remove after 12 hours. Location: post-herpetic neuralgia on chest Uses PRN lisinopril (ZESTRIL, PRINIVIL) 20 mg tablet Take 1 tablet by mouth twice daily. Taking BID [id number] 3.5 MG/ML-10,000 UNIT/ML-0.1% EYE DROPS None Entered nitroglycerin sublingual (NITROQUICK) 0.4 mg SL tablet Dissolve 1 tablet under the tongue as needed. DISSOLVE ON TONGUE FOR CHEST PAIN. IF NO PAIN RELIEF, CALL 911 Hasn't needed to use at all this year simvastatin (ZOCOR) 20 mg tablet Take 1 tablet by mouth daily at bedtime. taking triamcinolone acetonide (KENALOG) 0.5 % cream Apply 1 application to affected area twice daily. For rash/itching. Apply sparingly. Avoid face/skin fold. Rx meds not listed in EPIC: none OTCs: occasionally uses cold packs Herbals: none GLYCEMIC CONTROL: ? Glucometer present at visit: No ? SMBG?s: checking 2x/week - hasn't checked BG since April; reports numbers were in 200s; doesn't like needles ? Hypoglycemia: occasionally feels low - says she felt low in the 250s ? How corrected: carries orange in purse Objective: VITALS: BP 186/96 Pulse 81 Recheck after relaxing in dark room for 5 mins: 213/99; recheck after relaxing another 5 minutes: 210/99 Last 3 Encounter BP Readings: Date: BP: 05/18/2018 166/92 04/24/2018 196/84 01/27/2018 132/80 Wt: 83.6 kg (184 lb 3.2 oz) BMI: 34.80 kg/(m2) LABS Lab Results Component Value Date HBA1C 9.7 04/24/2018 HBA1C 8.0 01/17/2018 HBA1C 8.0 09/08/2017 CMP: Glucose 196 04/24/2018 BUN 21 04/24/2018 Creatinine 1.03 04/24/2018 Sodium 140 04/24/2018 Potassium 3.9 04/24/2018 Chloride 104 04/24/2018 CO2 24 04/24/2018 Protein, Total 6.8 04/24/2018 Albumin 3.5 04/24/2018 Calcium 8.6 04/24/2018 Alkaline Phosphatase 61 04/24/2018 Bilirubin, Total 0.4 04/24/2018 AST 23 04/24/2018 ALT 12 04/24/2018 eGFR 53 (per 04/24/18 CMP) ? Estimated CrCL 51.2 mL/min (calculated using Ht 154.9 cm, adjusted Wt 62.1 kg, sCr 1.03 mg/dL, using [place] Gault) Last Lipid Panel Lab Results Component Value Date CHOL 184 09/08/2017 Lab Results Component Value Date HDL 57 09/08/2017 Lab Results Component Value Date LDL 113 09/08/2017 Lab Results Component Value Date TG 70 09/08/2017 Albumin/Creat Ratio (mg/g) Date Value 09/08/2017 1,507 (H) PHARMACOTHERAPY ASSESSMENT/PLAN: 1. 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) - ICD9: 250.52, 365.44, ICD10: E11.65, E11.39, H42 (primary diagnosis) A1c goal <8%; uncontrolled (last A1c 9.7%) and due for recheck next mo; patient hates needles; not checking BG frequently but reports adherence to insulin; patient's expectations are to be able to completely eliminate medications so she can manage DM through only diet and exercise; PharmD explained how DM control is heavily based on both lifestyle behaviors but also genetics and it is unlikely that patient will ever be able to have good control of BG without any medication; PharmD proposed the idea of trying other oral medications and working on lifestyle modifications to potentially cut back on insulin doses (and perhaps eliminate mealtime insulin eventually) but patient refused to consider that idea - she is only willing to remove medications or decrease doses; PharmD discussed the risks of consistently elevated BG readings on health and stressed the importance of medications in mngt but patient resistant to consider additional/alternative therapies; patient in past did not tolerate metformin - patient would likely greatly benefit from metformin if she were willing to retrial med at a low dose with the ER formulation - did not discuss today because of patient adamantly dismissing the idea of new medications; based on patient preference, will not make med changes today - patient willing to check BG BID to evaluate improvement in BG control through lifestyle modifications; PharmD reviewed appropriate identification and mngt of hypoglycemia; patient also not interested in CGM anymore because doesn't want a needle stuck inside of her - CONTINUE insulin detemir 16 units QAM and 12 units QPM and insulin aspart 10 units TIDAC - Ordered A1c and BMP for next mo - Patient requesting to return to participate in shared medical appt on 06/22 - patient talked with front office associate to schedule appt 2. Essential hypertension - ICD9: 401.9, ICD10: I10 BP goal <140/90; BP highly elevated on initial check in office (per BP ZOE, SBP>200); upon chart review, BP has been elevated in 200s in the past; patient reports adherence to lisinopril but has not been taking amlodipine because of ADEs; since BP was so elevated, PharmD spoke with a nurse practitioner who came and listened to patient and took brief hx - patient asymptomatic in office and Admissions Specialist advised to start HCTZ today and advised pt to go to ED if starts noticing any chest pain, heart palpitations, dizziness, SOB, etc - patient said she understood; Admissions Specialist also requested that patient schedule f/u appt with her later this week; patient also counseled to be sure to take first dose of HCTZ tonight then to take another dose tomorrow AM prior to appt with Admissions Specialist; renal fxn and electrolytes WNL and appropriate to initiate thiazide diuretic - INITIATE HCTZ 12.5mg daily, may increase to BID dosing if needed based on BP result at f/u appt - CONTINUE lisinopril 20mg BID Patient scheduled to see Young Sims, tomorrow morning for BP check and back/side/abdominal pain. Patient is scheduled to see PCP for [facility] on 06/22/18 - will schedule next PharmD appt at that time. Patient verbalized understanding of instructions. Osbaldo Byrne, ScottD, [facility] Primary Care Clinical Pharmacist [place] OSBALDO BYRNE, PHARMACIST 06/13/2018 4:10 PM Addendum Schedule and appt with Young Mcintosh (nurse practitioner) or Dr. Galvan for later this week to review BP and stomach, back, and neck pains. Also ask front office associate about joining [facility] on 06/22. Please start checking BG twice daily - before breakfast and a couple hours after dinner START hydrochlorothiazide 12.5mg daily - nurse practitioner will likely increase dose to twice daily at your next appt this week. Referring Provider: ABRAHAN GALVAN [[id number]] Allergies As of Date: 06/13/2018 Noted Allergy Reaction BENTYL (DICYCLOMINE) 12/30/2016 1 - Mental Status Change Comments: difficulty thinking Caused her to take extra insulin because did not remember taking it BYETTA (EXENATIDE) 01/03/2012 8 - GI Upset CYCLOBENZAPRINE 06/28/2011 14 - Other: See Comments Comments: Vaginal itich DOXYCYCLINE 03/22/2013 11 - Vomiting METFORMIN 03/31/2005 8 - GI Upset NEURONTIN (GABAPENTIN) 10/14/2006 5 - Intolerance Comments: bad dreams NSAIDS (NON-STEROIDAL ANTI-INFLAM*10/23/2007 8 - GI Upset Comments: Avoids all NSAIDs because upsets her stomach Date Reviewed: 05/18/2018 Reviewed by: Lashon Lundberg LPN - Fully Assessed Reason for Visit: Allied Health Visit [5] Cmt: DM initial Primary Visit Diagnosis: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 Adjust as directedDisp: Rfl: 0 BASIC METABOLIC PNL [SQBMP] Order #: [id number] FUTURE HGB A1C [GSAWV1Z] Order #: [id number] FUTURE Prescriptions as of 06/13/2018 Sig: HYDROCHLOROTHIAZIDE 12.5 MG C* Take 1 capsule by mouth daily* INSULIN DETEMIR (U-100) 100 U* Inject 16 units subcutaneousl* LIDOCAINE 5 % TOPICAL PATCH Apply 1 Patch as directed norbert* SIMVASTATIN 20 MG TABLET Take 1 tablet by mouth daily * LISINOPRIL 20 MG TABLET Take 1 tablet by mouth twice * DIAZEPAM 5 MG TABLET Take 0.5-1 tablets by mouth o* HYDROCODONE 7.5 MG-ACETAMINOP* Take 1-2 tablets by mouth onc* DICLOFENAC EPOLAMINE 1.3 % TR* Apply 1 application to affect* Patient not taking: Reported on 04/24/2018 ACYCLOVIR 5 % TOPICAL CREAM Apply 1 application to affect* INSULIN ASPART U-100 100 UNI* Inject 10 Units subcutaneousl* PEN NEEDLE, DIABETIC 31 GAUGE* 1 Each four times daily. TRIAMCINOLONE ACETONIDE 0.5 %* Apply 1 application to affect* BLOOD SUGAR DIAGNOSTIC STRIPS Test blood sugar(s) 3 to 4 ti* NITROGLYCERIN 0.4 MG SUBLINGU* Dissolve 1 tablet under the t* [id number] 3* CODEINE 10 MG-GUAIFENESIN 100* Take 5-10 mL by mouth four ti* Patient not taking: Reported on 04/24/2018 CICLOPIROX 8 % TOPICAL SOLUTI* Apply 1 application to affect* * FINGERSTIX LANCETS use as directed Medication notes this encounter AMLODIPINE 5 MG TABLET >> OSBALDO BYRNE, PHARMACIST 06/13/2018 4:08 PM patient hasn't taken med in months Problem List As Of Date 06/13/2018 Noted Resolved TRIGGER FINGER [M65.30] INVALID FOR* More... Essential hypertension [I10] INVALID FOR* More... Esophageal reflux [K21.9] INVALID FOR*01/31/2013 More... ALLERGIC RHINITIS NOS [J30.9] INVALID FOR* PERS HX OF DISEASES NEC [V13.8] INVALID FOR* More... TENOSYNOV HAND/WRIST NEC [M65.849, M65.839] INVALID FOR* JOINT CONTRACTURE-HAND [M24.549] INVALID FOR* CORONARY ATHEROSCLER UNSPEC VESSEL [I25.10] INVALID FOR* More... 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 Acute back pain with sciatica [M54.40] INVALID FOR* More... 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 Other instructions from your clinician: Schedule and appt with Young Mcintosh (nurse practitioner) or Dr. Galvan for later this week to review BP and stomach, back, and neck pains. Also ask front office associate about joining [facility] on 06/22. Please start checking BG twice daily - before breakfast and a couple hours after dinner START hydrochlorothiazide 12.5mg daily - nurse practitioner will likely increase dose to twice daily at your next appt this week. Prescriptions ordered this encounter Disp Refills Start End HYDROCHLOROTHIAZIDE 12.5 MG CAPSULE 60 c* 5 06/13/2018 Sig: Take 1 capsule by mouth daily or until you see the nurse practitioner this week, then dose will likely be increased to twice daily. INSULIN DETEMIR (U-100) 100 UNIT/ML * 0 06/13/2018 Class: Med Update Sig: Inject 16 units subcutaneously every morning;inject 12 units subcutaneously every evening. Adjust as directed Medications Discontinued During This Encounter amLODIPine (NORVASC) 5 mg tablet 30 t* 5 01/19/2018 06/13/2018 Route: ORAL Sig: Take 1 tablet by mouth once daily. Patient not taking: Reported on 06/13/2018 Disc: Side Effects insulin detemir U-100 (LEVEMIR FLEXT* 5 Pen 5 05/02/2018 06/13/2018 Class: Med Update Sig: Inject 16 units subcutaneously every morning;inject 11 units subcutaneously every evening. Adjust as directed Disc: Reason for discontinue is not on file. Encounter Status:Closed by MELISSA (PHARMACIST)OSBALDO on 06/13/18 SWEETIE Observed: 06/13/2018 Status: COMPLETED Source: [place] 12:00 AM [facility] REPOSITORY Telephone ([facility]) TORI LORD ([id number]) 1950 F Date Time Provider Department 06/13/18 MELISSA (PHARMACIST[facility] During your visit today, we recorded the following information about you: NO VINCENT 06/13/2018 4:36 PM Signed Patient had appt today for DM mngt and was found to have hypertensive urgency (SBP>200) Patient briefly examined and questioned by Levi, Young Mcintosh, who advised patient to start HCTZ 12.5mg daily (take first dose tonight). Levi also noted patient is asymptomatic and advised her to go to emergency department if notices SOB, chest pain, dizziness, palpitations, etc - patient understood. Script for HCTZ sent to pharmacy Patient scheduled a f/u appt for BP check with Young Mcintosh tomorrow. PharmD advised patient to take first dose of HCTZ tonight then to take second dose tomorrow AM before her f/u appt. Routing to Admissions Specialist and PCP Osbaldo Byrne, Deena, [facility] Primary Care Clinical Pharmacist [facility] Young Mcintosh APRN.BROACHING MACHINE SET UP OPERATOR 06/13/2018 5:28 PM Signed Currently asymptomatic. To start HCTZ tonight, visit tomorrow. ER visit advised for any symptoms. Young Mcintosh APRN.BROACHING MACHINE SET UP OPERATOR Allergies As of Date: 06/13/2018 Noted Allergy Reaction BENTYL (DICYCLOMINE) 12/30/2016 1 - Mental Status Change Comments: difficulty thinking Caused her to take extra insulin because did not remember taking it BYETTA (EXENATIDE) 01/03/2012 8 - GI Upset CYCLOBENZAPRINE 06/28/2011 14 - Other: See Comments Comments: Vaginal itich DOXYCYCLINE 03/22/2013 11 - Vomiting METFORMIN 03/31/2005 8 - GI Upset NEURONTIN (GABAPENTIN) 10/14/2006 5 - Intolerance Comments: bad dreams NSAIDS (NON-STEROIDAL ANTI-INFLAM*10/23/2007 8 - GI Upset Comments: Avoids all NSAIDs because upsets her stomach Date Reviewed: 05/18/2018 Reviewed by: Lashon Lundberg LPN - Fully Assessed Reason for Visit: Blood Pressure [15] Cmt: Elevated BP reading in office Prescriptions as of 06/13/2018 Sig: HYDROCHLOROTHIAZIDE 12.5 MG C* Take 1 capsule by mouth daily* INSULIN DETEMIR (U-100) 100 U* Inject 16 units subcutaneousl* LIDOCAINE 5 % TOPICAL PATCH Apply 1 Patch as directed norbert* SIMVASTATIN 20 MG TABLET Take 1 tablet by mouth daily * LISINOPRIL 20 MG TABLET Take 1 tablet by mouth twice * DIAZEPAM 5 MG TABLET Take 0.5-1 tablets by mouth o* HYDROCODONE 7.5 MG-ACETAMINOP* Take 1-2 tablets by mouth onc* DICLOFENAC EPOLAMINE 1.3 % TR* Apply 1 application to affect* Patient not taking: Reported on 04/24/2018 ACYCLOVIR 5 % TOPICAL CREAM Apply 1 application to affect* INSULIN ASPART U-100 100 UNI* Inject 10 Units subcutaneousl* PEN NEEDLE, DIABETIC 31 GAUGE* 1 Each four times daily. TRIAMCINOLONE ACETONIDE 0.5 %* Apply 1 application to affect* BLOOD SUGAR DIAGNOSTIC STRIPS Test blood sugar(s) 3 to 4 ti* NITROGLYCERIN 0.4 MG SUBLINGU* Dissolve 1 tablet under the t* [id number] 3* CODEINE 10 MG-GUAIFENESIN 100* Take 5-10 mL by mouth four ti* Patient not taking: Reported on 04/24/2018 CICLOPIROX 8 % TOPICAL SOLUTI* Apply 1 application to affect* * FINGERSTIX LANCETS use as directed Problem List As Of Date 06/13/2018 Noted Resolved TRIGGER FINGER [M65.30] INVALID FOR* More... Essential hypertension [I10] INVALID FOR* More... Esophageal reflux [K21.9] INVALID FOR*01/31/2013 More... ALLERGIC RHINITIS NOS [J30.9] INVALID FOR* PERS HX OF DISEASES NEC [V13.8] INVALID FOR* More... TENOSYNOV HAND/WRIST NEC [M65.849, M65.839] INVALID FOR* JOINT CONTRACTURE-HAND [M24.549] INVALID FOR* CORONARY ATHEROSCLER UNSPEC VESSEL [I25.10] INVALID FOR* More... 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 Acute back pain with sciatica [M54.40] INVALID FOR* More... 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 Encounter Status:Closed by MELISSA (PHARMACIST)OSBALDO on 06/13/18 PROGRESS Observed: 05/18/2018 Status: COMPLETED Source: [place] 10:00 AM [facility] [place] REPOSITORY O ID: [id number] Author: Abrahan Galvan Service: (none) Author Type: Physician Type: Progress Notes Filed: 05/29/2018 11:08 PM Note Text: Patient presents for DM SMA with Dr. Galvan and Osbaldo Byrne PharmD GOALS: <8% Tori Lord is a 67 year old female was last seen by PCP, Dr. Galvan on 04/24. At last PCP visit no med changes were made. Patient was referred to PharmD for DM mngt in March 2017 but never followed-up. Subjective: Reports being very stressed Stress eating with ice cream Walking every day Reports drinking Glucerna during the day Patient reports she needs to get stress under control Reports adherence to insulin detemir Reports not eating meals often - often does not give mealtime injections because of this PCP increased insulin dose yesterday Patient very interested in applying for 3dplusmee CGM Open to seeing pharmacy to start this process Past DM medications: Metformin (GI upset) Exenatide (GI upset) Current DM regimen: Insulin detemir 16 units QAM and 11 units QPM Insulin aspart 10 units TIDAC (taking 11 units TIDAC - often skips meals so sometimes goes days without insulin) Current HTN regimen: Lisinopril 20mg BID Amlodipine 5mg daily ? Patient denies CP, SOB, JACK, blurred vision, dizziness or lightheadedness ? Patient denies symptoms of hypoglycemia (sweating, anxiety, palpitations, hunger, and tremor) ? Patient denies symptoms hyperglycemia (polyuria, polydipsia) ? Patient denies potential medication adverse effects DIET/EXERCISE/SOCIAL Hx: ? No changes ALLERGIES Allergen Reactions - Bentyl [Dicyclomine] Mental Status Change difficulty thinking Caused her to take extra insulin because did not remember taking it - Byetta [Exenatide] GI Upset - Cyclobenzaprine Other: See Comments Vaginal itich - Doxycycline Vomiting - Metformin GI Upset - Neurontin [Gabapent* Intolerance bad dreams - Nsaids (Non-Steroid* GI Upset Avoids all NSAIDs because upsets her stomach PAST MEDICAL HISTORY Diagnosis Date - Allergic rhinitis, cause unspecified 03/31/2005 - Chronic hepatitis C without hepatic coma (HCC) 03/27/2017 failed to respond to treatment started March 2016; Genotype 2; based on history-- from blood transfusion 1970s - Coronary atherosclerosis of unspecified type of vessel, [place] or graft 12/12/2006 50% lesion in LAD as seen on heart cath 11/29/2006 - Esophageal reflux - Glaucoma 07/29/10 chronic angle closure glaucoma (treated by Dr. 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) 09/05/2014 - Type II or unspecified type diabetes mellitus without mention of complication, not stated as uncontrolled - Unspecified essential hypertension Current Outpatient Prescriptions: insulin detemir U-100 (LEVEMIR FLEXTOUCH U-100 INSULN) 100 unit/mL (3 mL) inpn injection Inject 16 units subcutaneously every morning;inject 11 units subcutaneously every evening. Adjust as directed lidocaine (LIDODERM) 5 % Apply 1 Patch as directed every 24 hours. Remove after 12 hours. Location: post-herpetic neuralgia on chest simvastatin (ZOCOR) 20 mg tablet Take 1 tablet by mouth daily at bedtime. lisinopril (ZESTRIL, PRINIVIL) 20 mg tablet Take 1 tablet by mouth twice daily. diazePAM (VALIUM) 5 mg tablet Take 0.5-1 tablets by mouth once daily as needed for up to 30 days. HYDROcodone-Acetaminophen (NORCO) 7.5-325 mg per tablet Take 1-2 tablets by mouth once daily for 30 days. as needed.Earliest Fill Date: 04/06/18 diclofenac (FLECTOR) 1.3 % topical patch Apply 1 application to affected area. On for 12 hours at a time (Patient not taking: Reported on 04/24/2018 ) acyclovir (ZOVIRAX) 5 % crea Apply 1 application to affected area twice daily. Location: vulvar insulin aspart U-100 (NOVOLOG FLEXPEN U-100 INSULIN) 100 unit/mL inpn Inject 10 Units subcutaneously three times daily before meals. insulin needles, DISPOSABLE, (PEN NEEDLE) 31 gauge x 5/16 ndle 1 Each four times daily. amLODIPine (NORVASC) 5 mg tablet Take 1 tablet by mouth once daily. triamcinolone acetonide (KENALOG) 0.5 % cream Apply 1 application to affected area twice daily. For rash/itching. Apply sparingly. Avoid face/skin fold. blood sugar diagnostic (BLOOD GLUCOSE TEST) test strip Test blood sugar(s) 3 to 4 times daily as directed. Dx: Type 2 DM - Uncontrolled E11.65 Insulin: Yes nitroglycerin sublingual (NITROQUICK) 0.4 mg SL tablet Dissolve 1 tablet under the tongue as needed. DISSOLVE ON TONGUE FOR CHEST PAIN. IF NO PAIN RELIEF, CALL 911 [id number] 3.5 MG/ML-10,000 UNIT/ML-0.1% EYE DROPS codeine-guaiFENesin (ROBITUSSIN AC) 10-100 mg/5 mL syrup Take 5-10 mL by mouth four times daily as needed for Cough. May cause drowsiness. (Patient not taking: Reported on 04/24/2018 ) Ciclopirox (LOPROX) 8 % solution Apply 1 application to affected area daily at bedtime. Lancets (FINGERSTIX LANCETS) Misc Misc use as directed No current facility-administered medications for this visit. GLYCEMIC CONTROL: ? SMBG?s: FBG today 211; lowest BG in past couple week 196; denies anything in 300s ? Hypoglycemia: none Objective: VITALS: BP 166/92 Pulse 88 Resp 24 Last 3 Encounter BP Readings: Date: BP: 04/24/2018 196/84 01/27/2018 132/80 01/19/2018 201/86 Wt: 83.6 kg (184 lb 3.2 oz) BMI: 34.80 kg/(m2) LABS Lab Results Component Value Date HBA1C 9.7 04/24/2018 HBA1C 8.0 01/17/2018 HBA1C 8.0 09/08/2017 CMP: Glucose 196 04/24/2018 BUN 21 04/24/2018 Creatinine 1.03 04/24/2018 Sodium 140 04/24/2018 Potassium 3.9 04/24/2018 Chloride 104 04/24/2018 CO2 24 04/24/2018 Protein, Total 6.8 04/24/2018 Albumin 3.5 04/24/2018 Calcium 8.6 04/24/2018 Alkaline Phosphatase 61 04/24/2018 Bilirubin, Total 0.4 04/24/2018 AST 23 04/24/2018 ALT 12 04/24/2018 eGFR 53 (per 04/24/18 [facility]) Estimated CrCL 51.2 mL/min (calculated using Ht 154.9 cm, adjusted Wt 62.1 kg, sCr 1.03 mg/dL, using [place] Gault) Last Lipid Panel Lab Results Component Value Date CHOL 184 09/08/2017 Lab Results Component Value Date HDL 57 09/08/2017 Lab Results Component Value Date LDL 113 09/08/2017 Lab Results Component Value Date TG 70 09/08/2017 Albumin/Creat Ratio (mg/g) Date Value 09/08/2017 1,507 (H) ASSESSMENT/PLAN: 1. 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) - ICD9: 250.52, 365.44, ICD10: E11.65, E11.39, H42 (primary diagnosis) A1c goal <8%; uncontrolled based on last A1c (9.7%); A1c increased since summer - patient attributes to stress; patient reports adherence with basal insulin but often skips doses of insulin aspart because she skips meals (however she stress eats and snacks throughout the day); patient does not like injections - may benefit from switching from mealtime insulin to a once-weekly GLP-1 agonist; patient interested in starting the Freestyle Nel and is willing to f/u with pharmacy to begin this process; no medication changes today since patient just had insulin dose adjustment yesterday - CONTINUE current regimen - CONSULT TO AMBULATORY CLINIC PHARMACY 2. Essential hypertension - ICD9: 401.9, ICD10: I10 BP goal <140/90; uncontrolled on current regimen; BP has been elevated for past office visits; was not directly addressed today to be followed-up with PCP and PharmD; patient reports being very stressed lately and also was slightly worked up during SMA visit today which could have contributed to elevated BP; in future, t/c increasing amlodipine to max dose or adding a thiazide diuretic for additional BP control; renal fxn and K+ WNL and appropriate for continued use - CONTINUE current regimen Patient is scheduled to see BROACHING MACHINE SET UP OPERATOR on 07/25/18. Patient to return to clinic for PharmD f/u - to be scheduled by PSS. Patient verbalized understanding of instructions. Dr. Galvan and Osbalod Byrne, ScottD The patient was seen, chart reviewed and I concur with the above evaluation and plan. Reviewed with SMA group management of DM. Encounter Diagnosis ICD-10-CM 1. 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 Stress at home F43.9 3. Essential hypertension I10 Above issues addressed with patient. Patient involved in shared decision making for management of medical issues. History and medications reviewed. Epic updated as needed Refills taken care of and meds adjusted as indicated after reviewed history, exam and labs. Health Maintenance reviewed. Updated record and/or ordered tests as recorded. Encouraged on efforts at healthy diet and regular exercise and adequate sleep. Work on stress management Abrahan Galvan MD CNOV Observed: 05/18/2018 Status: COMPLETED Source: [place] 10:00 AM [facility] REPOSITORY Office Visit (INTMWS) TORI LORD ([id number]) 1950 F Date Time Provider Department 05/18/18 10:00 AM ABRAHAN GALVAN INTMWS During your visit today, we recorded the following information about you: Pulse Respiration Blood pressure 88/minute 24/minute 166/92 Abrahan Galvan MD 05/29/2018 11:08 PM Signed Patient presents for DM SMA with Dr. Galvan and Osbaldo Byrne PharmD GOALS: <8% Tori Lord is a 67 year old female was last seen by PCP, Dr. Galvan on 04/24. At last PCP visit no med changes were made. Patient was referred to PharmD for DM mngt in March 2017 but never followed-up. Subjective: Reports being very stressed Stress eating with ice cream Walking every day Reports drinking Glucerna during the day Patient reports she needs to get stress under control Reports adherence to insulin detemir Reports not eating meals often - often does not give mealtime injections because of this PCP increased insulin dose yesterday Patient very interested in applying for 3dplusmee CGM Open to seeing pharmacy to start this process Past DM medications: Metformin (GI upset) Exenatide (GI upset) Current DM regimen: Insulin detemir 16 units QAM and 11 units QPM Insulin aspart 10 units TIDAC (taking 11 units TIDAC - often skips meals so sometimes goes days without insulin) Current HTN regimen: Lisinopril 20mg BID Amlodipine 5mg daily ? Patient denies CP, SOB, JACK, blurred vision, dizziness or lightheadedness ? Patient denies symptoms of hypoglycemia (sweating, anxiety, palpitations, hunger, and tremor) ? Patient denies symptoms hyperglycemia (polyuria, polydipsia) ? Patient denies potential medication adverse effects DIET/EXERCISE/SOCIAL Hx: ? No changes ALLERGIES Allergen Reactions - Bentyl [Dicyclomine] Mental Status Change difficulty thinking Caused her to take extra insulin because did not remember taking it - Byetta [Exenatide] GI Upset - Cyclobenzaprine Other: See Comments Vaginal itich - Doxycycline Vomiting - Metformin GI Upset - Neurontin [Gabapent* Intolerance bad dreams - Nsaids (Non-Steroid* GI Upset Avoids all NSAIDs because upsets her stomach PAST MEDICAL HISTORY Diagnosis Date - Allergic rhinitis, cause unspecified 03/31/2005 - Chronic hepatitis C without hepatic coma (HCC) 03/27/2017 failed to respond to treatment started March 2016; Genotype 2; based on history-- from blood transfusion - Coronary atherosclerosis of unspecified type of vessel, [place] or graft 12/12/2006 50% lesion in LAD as seen on heart cath 11/29/2006 - Esophageal reflux - Glaucoma 07/29/10 chronic angle closure glaucoma (treated by Dr. 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) 09/05/2014 - Type II or unspecified type diabetes mellitus without mention of complication, not stated as uncontrolled - Unspecified essential hypertension Current Outpatient Prescriptions: insulin detemir U-100 (LEVEMIR FLEXTOUCH U-100 INSULN) 100 unit/mL (3 mL) inpn injection Inject 16 units subcutaneously every morning;inject 11 units subcutaneously every evening. Adjust as directed lidocaine (LIDODERM) 5 % Apply 1 Patch as directed every 24 hours. Remove after 12 hours. Location: post-herpetic neuralgia on chest simvastatin (ZOCOR) 20 mg tablet Take 1 tablet by mouth daily at bedtime. lisinopril (ZESTRIL, PRINIVIL) 20 mg tablet Take 1 tablet by mouth twice daily. diazePAM (VALIUM) 5 mg tablet Take 0.5-1 tablets by mouth once daily as needed for up to 30 days. HYDROcodone-Acetaminophen (NORCO) 7.5-325 mg per tablet Take 1-2 tablets by mouth once daily for 30 days. as needed.Earliest Fill Date: 04/06/18 diclofenac (FLECTOR) 1.3 % topical patch Apply 1 application to affected area. On for 12 hours at a time (Patient not taking: Reported on 04/24/2018 ) acyclovir (ZOVIRAX) 5 % crea Apply 1 application to affected area twice daily. Location: vulvar insulin aspart U-100 (NOVOLOG FLEXPEN U-100 INSULIN) 100 unit/mL inpn Inject 10 Units subcutaneously three times daily before meals. insulin needles, DISPOSABLE, (PEN NEEDLE) 31 gauge x 5/16 ndle 1 Each four times daily. amLODIPine (NORVASC) 5 mg tablet Take 1 tablet by mouth once daily. triamcinolone acetonide (KENALOG) 0.5 % cream Apply 1 application to affected area twice daily. For rash/itching. Apply sparingly. Avoid face/skin fold. blood sugar diagnostic (BLOOD GLUCOSE TEST) test strip Test blood sugar(s) 3 to 4 times daily as directed. Dx: Type 2 DM - Uncontrolled E11.65 Insulin: Yes nitroglycerin sublingual (NITROQUICK) 0.4 mg SL tablet Dissolve 1 tablet under the tongue as needed. DISSOLVE ON TONGUE FOR CHEST PAIN. IF NO PAIN RELIEF, CALL 911 TIVEFHHT-WPIQCJNGP-ATGROCSL 3.5 MG/ML-10,000 UNIT/ML-0.1% EYE DROPS codeine-guaiFENesin (ROBITUSSIN AC) 10-100 mg/5 mL syrup Take 5-10 mL by mouth four times daily as needed for Cough. May cause drowsiness. (Patient not taking: Reported on 04/24/2018 ) Ciclopirox (LOPROX) 8 % solution Apply 1 application to affected area daily at bedtime. Lancets (FINGERSTIX LANCETS) [facility] as directed No current facility-administered medications for this visit. GLYCEMIC CONTROL: ? SMBG?s: FBG today 211; lowest BG in past couple week 196; denies anything in 300s ? Hypoglycemia: none Objective: VITALS: BP 166/92 Pulse 88 Resp 24 Last 3 Encounter BP Readings: Date: BP: 04/24/2018 196/84 01/27/2018 132/80 01/19/2018 201/86 Wt: 83.6 kg (184 lb 3.2 oz) BMI: 34.80 kg/(m2) LABS Lab Results Component Value Date HBA1C 9.7 04/24/2018 HBA1C 8.0 01/17/2018 HBA1C 8.0 09/08/2017 CMP: Glucose 196 04/24/2018 BUN 21 04/24/2018 Creatinine 1.03 04/24/2018 Sodium 140 04/24/2018 Potassium 3.9 04/24/2018 Chloride 104 04/24/2018 CO2 24 04/24/2018 Protein, Total 6.8 04/24/2018 Albumin 3.5 04/24/2018 Calcium 8.6 04/24/2018 Alkaline Phosphatase 61 04/24/2018 Bilirubin, Total 0.4 04/24/2018 AST 23 04/24/2018 ALT 12 04/24/2018 eGFR 53 (per 04/24/18 CMP) Estimated CrCL 51.2 mL/min (calculated using Ht 154.9 cm, adjusted Wt 62.1 kg, sCr 1.03 mg/dL, using [place]) Last Lipid Panel Lab Results Component Value Date CHOL 184 09/08/2017 Lab Results Component Value Date HDL 57 09/08/2017 Lab Results Component Value Date LDL 113 09/08/2017 Lab Results Component Value Date TG 70 09/08/2017 Albumin/Creat Ratio (mg/g) Date Value 09/08/2017 1,507 (H) ASSESSMENT/PLAN: 1. 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) - ICD9: 250.52, 365.44, ICD10: E11.65, E11.39, H42 (primary diagnosis) A1c goal <8%; uncontrolled based on last A1c (9.7%); A1c increased since summer - patient attributes to stress; patient reports adherence with basal insulin but often skips doses of insulin aspart because she skips meals (however she stress eats and snacks throughout the day); patient does not like injections - may benefit from switching from mealtime insulin to a once- weekly GLP-1 agonist; patient interested in starting the Freestyle Nel and is willing to f/u with pharmacy to begin this process; no medication changes today since patient just had insulin dose adjustment yesterday - CONTINUE current regimen - CONSULT TO AMBULATORY CLINIC PHARMACY 2. 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 Patient to return to clinic for PharmD f/u - to be scheduled by PSS. Patient verbalized understanding of instructions. Dr. Galvan and Osbaldo Byrne PharmD The patient was seen, chart reviewed and I concur with the above evaluation and plan. Reviewed with [facility] group management of DM. Encounter Diagnosis ICD-10-CM 1. 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 Stress at home F43.9 3. Essential hypertension I10 Above issues addressed with patient. Patient involved in shared decision making for management of medical issues. History and medications reviewed. Epic updated as needed Refills taken care of and meds adjusted as indicated after reviewed history, exam and labs. Health Maintenance reviewed. Updated record and/or ordered tests as recorded. Encouraged on efforts at healthy diet and regular exercise and adequate sleep. Work on stress management MD Abrahan Coe MD 05/18/2018 10:45 AM Signed Keep up the walking for helping with stress management as well as to help get sugars down. Try to choose something for stress eating that does not have as much carbs for most of the time. Once in a while for the Drumstick ice cream cone okay ;D Referring Provider: ABRAHAN GALVAN [[id number]] Allergies As of Date: 05/18/2018 Noted Allergy Reaction BENTYL (DICYCLOMINE) 12/30/2016 1 - Mental Status Change Comments: difficulty thinking Caused her to take extra insulin because did not remember taking it BYETTA (EXENATIDE) 01/03/2012 8 - GI Upset CYCLOBENZAPRINE 06/28/2011 14 - Other: See Comments Comments: Vaginal itich DOXYCYCLINE 03/22/2013 11 - Vomiting METFORMIN 03/31/2005 8 - GI Upset NEURONTIN (GABAPENTIN) 10/14/2006 5 - Intolerance Comments: bad dreams NSAIDS (NON-STEROIDAL ANTI-INFLAM*10/23/2007 8 - GI Upset Comments: Avoids all NSAIDs because upsets her stomach Date Reviewed: 05/18/2018 Reviewed by: Lashon Lundberg LPN - Fully Assessed Reason for Visit: DM SMA [Other] Primary Visit Diagnosis: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) [E11.65, E11.39, H42] Other Visit Diagnoses:Stress at home [F43.9] Essential hypertension [I10] Order(s):CONSULT TO AMBULATORY CLINIC PHARMACY [[id number]] Order #: [id number]: 1 Prescriptions as of 05/18/2018 Sig: INSULIN DETEMIR (U-100) 100 U* Inject 16 units subcutaneousl* LIDOCAINE 5 % TOPICAL PATCH Apply 1 Patch as directed norbert* SIMVASTATIN 20 MG TABLET Take 1 tablet by mouth daily * LISINOPRIL 20 MG TABLET Take 1 tablet by mouth twice * DIAZEPAM 5 MG TABLET Take 0.5-1 tablets by mouth o* HYDROCODONE 7.5 MG-ACETAMINOP* Take 1-2 tablets by mouth onc* DICLOFENAC EPOLAMINE 1.3 % TR* Apply 1 application to affect* Patient not taking: Reported on 04/24/2018 ACYCLOVIR 5 % TOPICAL CREAM Apply 1 application to affect* INSULIN ASPART U-100 100 UNI* Inject 10 Units subcutaneousl* PEN NEEDLE, DIABETIC 31 GAUGE* 1 Each four times daily. AMLODIPINE 5 MG TABLET Take 1 tablet by mouth once d* TRIAMCINOLONE ACETONIDE 0.5 %* Apply 1 application to affect* BLOOD SUGAR DIAGNOSTIC STRIPS Test blood sugar(s) 3 to 4 ti* NITROGLYCERIN 0.4 MG SUBLINGU* Dissolve 1 tablet under the t* [id number] 3* CODEINE 10 MG-GUAIFENESIN 100* Take 5-10 mL by mouth four ti* Patient not taking: Reported on 04/24/2018 CICLOPIROX 8 % TOPICAL SOLUTI* Apply 1 application to affect* * FINGERSTIX LANCETS use as directed Problem List As Of Date 05/18/2018 Noted Resolved TRIGGER FINGER [M65.30] INVALID FOR* More... Essential hypertension [I10] INVALID FOR* More... Esophageal reflux [K21.9] INVALID FOR*01/31/2013 More... ALLERGIC RHINITIS NOS [J30.9] INVALID FOR* PERS HX OF DISEASES NEC [V13.8] INVALID FOR* More... TENOSYNOV HAND/WRIST NEC [M65.849, M65.839] INVALID FOR* JOINT CONTRACTURE-HAND [M24.549] INVALID FOR* CORONARY ATHEROSCLER UNSPEC VESSEL [I25.10] INVALID FOR* More... 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 Acute back pain with sciatica [M54.40] INVALID FOR* More... 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 Other instructions from your clinician: Keep up the walking for helping with stress management as well as to help get sugars down. Try to choose something for stress eating that does not have as much carbs for most of the time. Once in a while for the Drumstick ice cream cone okay ;D Disposition: Return in about 3 months (around 08/18/2018) for DM SMA. Follow-up and Disposition History Recorded Encounter Status:Closed by ABRAHAN GALVAN MD on 05/29/18 CNCO Observed: 05/10/2018 Status: COMPLETED Source: [place] 7:59 AM [facility] REPOSITORY HNO ID: [id number] Author: Mammography Coordinator Service: (none) Author Type: Physician Type: Letter Filed: 05/11/2018 11:31 PM Note Text: May 10, 2018 PID: [id number] Tori Lord [address] [place] [address] Dear Ms. Lord, We are pleased to inform you that the results of your recent breast imaging exam on 05/10/2018 are normal. Early detection of cancer is very important. We also understand recommendations regarding breast cancer screening are controversial. Please discuss with your primary care provider which strategy is best for you and whether a mammogram is right for you. Your imaging studies and report will be kept on file at [facility] as part of your permanent medical record and are available for your continuing care. Thank you for allowing us to help in meeting your health care needs. Sincerely, Dr. Weiss Interpreting Radiologist [facility] (Normal over 40) [facility] SCREENING Observed: 05/10/2018 Status: F Source: [place] 7:48 AM [facility] REPOSITORY * * *Final Report* * * DATE OF EXAM: May 10 2018 7:48AM [facility] 0581 - [facility] SCREENING / PROCEDURE REASON: Encounter for screening mammogram for breast cancer * * * * Physician Interpretation * * * * RESULT: #[id number] - [facility] SCREENING BILATERAL DIGITAL SCREENING MAMMOGRAM WITH CAD: 05/10/2018 HISTORY: Encounter For Screening Mammogram For Breast Cancer /patient reports NO breast symptoms /priors available for comparison. RESULT: TECHNIQUE: The study was acquired using full field digital technology and interpreted from soft copy. Current study was also evaluated with a Computer Aided Detection (CAD). Comparison is made to exams dated: 07/09/2016 mammogram and 04/09/2015 mammogram - [facility]. There are scattered fibroglandular elements in both breasts. No significant masses, calcifications, or other findings are seen in either breast. There has been no significant interval change. IMPRESSION: NEGATIVE There is no mammographic evidence of malignancy.A 1 year screening mammogram is recommended. Shae Weiss M.D. fa/penrad:05/10/2018 07:59:55 Headend Technician: Yvonne VILLAGRAN(Irene)(Dae), [facility] letter sent: Normal over 40 Mammogram BI-RADS: 1 Negative Multiple national specialty organizations have released breast cancer screening guidelines for women at average risk for developing breast cancer - guidelines that are based on both evidence and opinion, yet differ on when to start and how often to screen for breast cancer. With representation from Breast Imaging, Internal Medicine, Women's Health, Family Medicine, and Medical/Surgical Oncology, the [facility] has carefully reviewed the data and reached the following consensus: 1) All women should engage in shared decision-making with their providers to decide when to start and how often to screen; 2) All women should have the opportunity to start screening mammography at age 40; 3) For women ages 45-55, we recommend annual screening mammograms; 4) For women ages 55 and over, we support both the transition from an annual to a biennial interval if this aligns more with patient's values and preferences, or continuation with annual screening; 5) All women should discuss with their providers when to stop screening mammograms. Delivery Stock Clerk: Yong Transcribe Date/Time: May 10 2018 7:28A Dictated by: SHAE WEISS MD This examination was interpreted and the report reviewed and electronically signed by: SHAE WEISS MD on May 10 2018 7:59AM EST [id number] Observed: 05/10/2018 Status: COMPLETED Source: [place] 7:24 AM [facility] REPOSITORY HNO ID: [id number] Author: Areli Hart Rt Service: (none) Author Type: (none) Type: Progress Notes Filed: 05/10/2018 7:51 AM Note Text: Radiology Service Progress Note PATIENT NAME: Tori Lord DATE OF SERVICE: May 10, 2018 TIME: 7:25 AM PATIENT IDENTITY VERIFICATION COMPLETED USING TWO (2) METHODS: Patient confirmed name verbally and Date of . PATIENT GENDER DATA: Female. status: : No status: NO. PATIENT RELEVANT IMPLANT DATA REVIEWED: Not Applicable RADIOLOGY DEPARTMENT: [facility] kai scr mammogram PERIPHERAL IV DATA: Not applicable SIGNED BY: Areli Hart Rt May 10, 2018 7:25 AM URINALYSIS WITH Collected: 04/24/2018 Status: F Source: [facility] 5:47 PM [facility] REPOSITORY TYPE CODE TESTS RESULT OUT OF RANGE REFERENCE UNITS LAB UCOL Yellow Color Yellow LAB [facility] Clear Clarity Abnormal Cloudy Alert LAB UGLUC Negative mg/dL Glucose, Abnormal Urine 150 Alert LAB UBIL Negative Bilirubin, Urine Negative LAB UKET Negative Ketones, Urine Negative LAB USPG 1.005-1.030 Specific [place], Ur 1.016 LAB UHGB Negative Hemoglobin/Blood, Negative Ur LAB UPH 4.5-8.0 pH 5.0 LAB UPROT Negative mg/dL Protein, Abnormal Urine >=300 Alert LAB UUROB Normal Urobilinogen Normal LAB UNITR Negative Nitrites Negative LAB ULKEST Negative Leukest Abnormal Trace Alert LAB UCOM Comments SEE COMMENT Result Comment: N/A LAB UMCOM Urine SEE Kelvin Comment COMMENT Result Comment: N/A LAB UWBC 0-5 /HPF Abnormal WBC Alert 6-10 LAB URBC 0-3 /HPF RBC 0-3 LAB UEPI /HPF Epithelial Cells SEE COMMENT Result Comment: Few Squamous Epithelial Cells Performed By: #### UAWMIC #### [facility] [employer] [place], [place] [address] CBC Collected: 04/24/2018 Status: F Source: [place] 3:22 PM [facility] REPOSITORY TYPE CODE TESTS RESULT OUT OF REFERENCE UNITS RANGE LAB WBC 3.70-11.00 k/uL WBC 8.46 LAB RBC 3.90-5.20 m/uL RBC 5.08 LAB HGB 11.5-15.5 g/dL Hemoglobin 13.2 LAB HCT 36.0-46.0 % Hematocrit 42.3 LAB MCV 80.0-100.0 fL MCV 83.3 LAB MCH 26.0-34.0 pG MCH 26.0 LAB MCHC 30.5-36.0 g/dL MCHC 31.2 LAB RDWCV 11.5-15.0 % RDW-CV 14.6 LAB PLTCT 150-400 k/uL Platelet Count 167 LAB MPV 9.0-12.7 fL MPV 12.0 LAB ABSNUC <0.01 k/uL Absolute nRBC <0.01 Performed By: #### CBC, CK, CMP, MG1, TSH, FT4, HBA1C #### [facility] [employer] [address] [place], [place] [address] CK Collected: 04/24/2018 Status: F Source: [facility] 3:22 PM MAIN CAMPUS REPOSITORY TYPE CODE TESTS RESULT OUT OF RANGE REFERENCE UNITS LAB CK 42-196 U/L CK 164 Performed By: #### CBC, CK, CMP, MG1, TSH, FT4, HBA1C #### [facility] [address] [place], [place] [address] COMP METABOLIC PANEL Collected: 04/24/2018 Status: F Source: [place] 3:22 PM [facility] REPOSITORY TYPE CODE TESTS RESULT OUT OF REFERENCE UNITS RANGE LAB TP 6.3-8.0 g/dL Protein, Total 6.8 LAB ALB 3.9-4.9 g/dL Low Albumin 3.5 LAB CA 8.5-10.2 mg/dL Calcium, Total 8.6 LAB TBIL 0.2-1.3 mg/dL Bilirubin, Total 0.4 LAB ALKP 34-123 U/L Alkaline Phosphatase 61 LAB AST 13-35 U/L AST 23 LAB GLU 74-99 mg/dL Glucose High 196 Result Comment: The [place] Diabetes Association (ADA) provides guidance for cutoff values for fasting glucose and random glucose. The ADA defines fasting as no caloric intake for at least 8 hours. Fas ting plasma glucose results between 100 to 125 mg/dL indicate increased risk for diabetes (prediabetes). Fasting plasma glucose results greater than or equal to 126 mg/dL meet the criteria for diagnosis of diabetes. In the absence of unequivocal hyperglycemia, results should be confirmed by repeat testing. In a patient with classic symptoms of hyperglycemia or hyperglycemic crisis, random plasma glucose results greater than or equal to 200 mg/dL meet the criteria for diagnosis of diabetes. Reference: Standards of Medical Care in Diabetes 2016, [place] [employer] Association. Diabetes Care. 2016.39(Suppl 1). LAB BUN 7-21 mg/dL BUN 21 LAB CRET 0.58-0.96 mg/dL Creatinine High 1.03 LAB NA 136-144 mmol/L Sodium 140 LAB K 3.7-5.1 mmol/L Potassium 3.9 LAB CL 97-105 mmol/L Chloride 104 LAB CO2 22-30 mmol/L CO2 24 LAB AGAP 9-18 mmol/L Anion Gap 12 LAB ALT 7-38 U/L ALT 12 LAB GFRAA eGFR- Amer. >60 LAB GFRNAA . eGFR-All Other Races 53 Result Comment: eGFR (Estimated GFR) Units of measure: mL/min/1.73 meters squared eGFR is derived from the reexpressed MDRD Study equation using the following parameters: serum creatinine, age, gender and race. The creatinine assay has been calibrated to be traceable to IDMS. An eGFR <60 mL/min/1.73m2 for >3 months is consistent with chronic kidney disease. Refer to KDOQI guidelines for clinical interpretation. In patients with unstable renal function, e.g. those with acute kidney injury, the eGFR may not accurately reflect actual GFR. Performed By: #### CBC, CK, CMP, MG1, TSH, FT4, HBA1C #### [place] [address] MAGNESIUM Collected: 04/24/2018 Status: F Source: [place] 3:22 [facility] REPOSITORY TYPE CODE TESTS RESULT OUT OF REFERENCE UNITS RANGE LAB MG 1.7-2.3 mg/dL Magnesium 2.0 Performed By: #### CBC, CK, CMP, MG1, TSH, FT4, HBA1C #### [place] [phone] TSH Collected: 04/24/2018 Status: F Source: [place] 3:22 [facility] REPOSITORY TYPE CODE TESTS RESULT OUT OF RANGE REFERENCE UNITS LAB TSH 0.400-5.500 uU/mL TSH 0.600 Performed By: #### CBC, CK, CMP, MG1, TSH, FT4, HBA1C #### [place] [phone] FREE T4 Collected: 04/24/2018 Status: F Source: [place] 3:22 PM [facility] REPOSITORY TYPE CODE TESTS RESULT OUT OF RANGE REFERENCE UNITS LAB FT4 0.9-1.7 ng/dL Free T4 1.2 Performed By: #### CBC, CK, CMP, MG1, TSH, FT4, HBA1C #### [place] [phone] HEMOGLOBIN A1C Collected: 04/24/2018 Status: F Source: [place] 3:22 PM [facility] REPOSITORY TYPE CODE TESTS RESULT OUT OF REFERENCE UNITS RANGE LAB HGBA1C 4.3-5.6 % High Hemoglobin A1c 9.7 LAB HBA0 mg/dL Est. Average Glucose 232 Result Comment: eAG: (Estimated average glucose) is a calculated value from HgbA1c and is accounting representative of the average blood glucose level in the last 2-3 month period. Performed By: #### CBC, CK, CMP, MG1, TSH, FT4, HBA1C #### [facility] [address] [place], [place] [address] PROGRESS Observed: 04/24/2018 Status: COMPLETED Source: [place] 2:25 PM [facility] REPOSITORY HNO ID: [id number] Author: Abrahan Galvan Service: (none) Author Type: Physician Type: Progress Notes Filed: 05/08/2018 12:38 AM Note Text: Patient presents with: Recheck: Follow up SUBJECTIVE: Tori Lord is a 67 year old year old lady here today for 3 month follow up appointment for review of medical conditions. Neck has been hurting--front part of neck to upper chest. Started after got back. No injury noted. Really tired Has to get things done before 2:30PM since after that ,exhausted Really out of breath-started before gained the weight. Weight gained--while at [place] where stayed for 3 weeks. Been back about 3 weeks ago. Sugars got wacky. Up to 196 this AM. Urinary incontinence with sensory unawareness that started prior to going to [place]. PAST MEDICAL HISTORY Diagnosis Date - Allergic rhinitis, cause unspecified 03/31/2005 - Chronic hepatitis C without hepatic coma (HCC) 03/27/2017 failed to respond to treatment started March 2016; Genotype 2; based on history-- from blood transfusion - Coronary atherosclerosis of unspecified type of vessel, [place] or graft 12/12/2006 50% lesion in LAD as seen on heart cath 11/29/2006 - Esophageal reflux - Glaucoma 07/29/10 chronic angle closure glaucoma (treated by Dr. 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 HYDROcodone-Acetaminophen (NORCO) 7.5-325 mg per tablet Take 1-2 tablets by mouth once daily for 30 days. as needed.Earliest Fill Date: 04/06/18 acyclovir (ZOVIRAX) 5 % crea Apply 1 application to affected area twice daily. Location: vulvar insulin detemir U-100 (LEVEMIR FLEXTOUCH U-100 INSULN) 100 unit/mL (3 mL) inpn injection Inject 15 units subcutaneously every morning;inject 10 units subcutaneously every evening. Adjust as directed insulin aspart U-100 (NOVOLOG FLEXPEN U-100 INSULIN) 100 unit/mL inpn Inject 10 Units subcutaneously three times daily before meals. insulin needles, DISPOSABLE, (PEN NEEDLE) 31 gauge x 5/16 ndle 1 Each four times daily. amLODIPine (NORVASC) 5 mg tablet Take 1 tablet by mouth once daily. triamcinolone acetonide (KENALOG) 0.5 % cream Apply 1 application to affected area twice daily. For rash/itching. Apply sparingly. Avoid face/skin fold. simvastatin (ZOCOR) 20 mg tablet take 1 tablet by mouth at bedtime blood sugar diagnostic (BLOOD GLUCOSE TEST) test strip Test blood sugar(s) 3 to 4 times daily as directed. Dx: Type 2 DM - Uncontrolled E11.65 Insulin: Yes nitroglycerin sublingual (NITROQUICK) 0.4 mg SL tablet Dissolve 1 tablet under the tongue as needed. DISSOLVE ON TONGUE FOR CHEST PAIN. IF NO PAIN RELIEF, CALL 911 [id number] 3.5 MG/ML-10,000 UNIT/ML-0.1% EYE DROPS lisinopril (ZESTRIL, PRINIVIL) 20 mg tablet Take 1 tablet by mouth twice daily. Ciclopirox (LOPROX) 8 % solution Apply 1 application to affected area daily at bedtime. Lancets (FINGERSTIX LANCETS) [facility] use as directed diclofenac (FLECTOR) 1.3 % topical patch Apply 1 application to affected area. On for 12 hours at a time (Patient not taking: Reported on 04/24/2018 ) codeine-guaiFENesin (ROBITUSSIN AC) 10-100 mg/5 mL syrup Take 5-10 mL by mouth four times daily as needed for Cough. May cause drowsiness. (Patient not taking: Reported on 04/24/2018 ) No current facility-administered medications for this visit. OBJECTIVE: BP 196/84 Pulse 92 Resp 20 Wt 83.6 kg (184 lb 3.2 oz) BMI 34.80 kg/m? Patient is alert, oriented times 3, no apparent distress, affect is bright, reactive. Last 5 Encounter BP Readings: Date: BP: 04/24/2018 196/84 01/27/2018 132/80 01/19/2018 201/86 10/18/2017 150/88 09/01/2017 134/88 Last 5 Encounter Wt Readings: Date: Wt: 04/24/2018 83.6 kg (184 lb 3.2 oz) 01/27/2018 80.9 kg (178 lb 6.4 oz) 11/17/2017 79.4 kg (175 lb) 10/18/2017 80.3 kg (177 lb) 08/04/2017 78 kg (172 lb) Heart: Regular rate, rhythm, no murmurs, gallops, rubs. Lungs: Clear to auscultation, bilaterally, breathing non labored. Ext: No cyanosis, clubbing, or edema. May 23, 2017 ? 5:42 PM Carlos Eduardo De León routed this conversation to [facility] Carlos Eduardo De León ? 5:41 PM Note Stress test reported to show normal heart function and circulation. Continue current medications. We will get together as scheduled. Carlos Eduardo De León MD ASSESSMENT AND PLAN: Encounter Diagnosis ICD-10-CM 1. 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 Diabetic nephropathy associated with type 2 diabetes mellitus (HCC) E11.21 COMP METABOLIC PANEL URINALYSIS WITH MICROSCOPIC 3. Cervicalgia M54.2 4. Chest heaviness R07.89 even when not active; fatigue after sits and rests 5. Essential hypertension I10 TSH BLD T4 FREE/FREE THYROX 6. Paresthesia of both hands R20.2 MAGNESIUM BLD TSH BLD T4 FREE/FREE THYROX right worse 7. Muscle pain M79.10 CK CREATINE KINASE Will follow up with Dr. De León. Found results of stress test under telephone encounters as noted above. Above issues addressed with patient. Patient involved in shared decision making for management of medical issues. History and medications reviewed. Epic updated as needed Refills taken care of and meds adjusted as indicated after reviewed history, exam and labs. Further evaluation and treatment as indicated. Health Maintenance reviewed. Updated record and/or ordered tests as recorded. Encouraged on efforts at healthy diet and regular exercise and adequate sleep. The majority of the visit was spent counseling and/or coordinating care for the patient. Sbkc-bl-xinl time was at least 25 minutes. Abrahan Galvan MD CNOV Observed: 04/24/2018 Status: COMPLETED Source: [place] 1:20 PM [facility] REPOSITORY Office Visit (INTMWS) TORI LORD ([id number]) 1950 F Date Time Provider Department 04/24/18 1:20 PM ABRAHAN GALVAN INTMWS During your visit today, we recorded the following information about you: Pulse Respiration Blood pressure Weight 92/minute 20/minute 196/84 83.6 kg Abrahan Galvan MD 05/08/2018 12:38 AM Signed Patient presents with: Recheck: Follow up SUBJECTIVE: Tori Lord is a 67 year old year old lady here today for 3 month follow up appointment for review of medical conditions. Neck has been hurting--front part of neck to upper chest. Started after got back. No injury noted. Really tired Has to get things done before 2:30PM since after that ,exhausted Really out of breath-started before gained the weight. Weight gained--while at [place] where stayed for 3 weeks. Been back about 3 weeks ago. Sugars got wacky. Up to 196 this AM. Urinary incontinence with sensory unawareness that started prior to going to [place]. PAST MEDICAL HISTORY Diagnosis Date - Allergic rhinitis, cause unspecified 03/31/2005 - Chronic hepatitis C without hepatic coma (HCC) 03/27/2017 failed to respond to treatment started March 2016; Genotype 2; based on history-- from blood transfusion - Coronary atherosclerosis of unspecified type of vessel, [place] or graft 12/12/2006 50% lesion in LAD as seen on heart cath 11/29/2006 - Esophageal reflux - Glaucoma 07/29/10 chronic angle closure glaucoma (treated by Dr. 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 HYDROcodone-Acetaminophen (NORCO) 7.5-325 mg per tablet Take 1-2 tablets by mouth once daily for 30 days. as needed.Earliest Fill Date: 04/06/18 acyclovir (ZOVIRAX) 5 % crea Apply 1 application to affected area twice daily. Location: vulvar insulin detemir U-100 (LEVEMIR FLEXTOUCH U-100 INSULN) 100 unit/mL (3 mL) inpn injection Inject 15 units subcutaneously every morning;inject 10 units subcutaneously every evening. Adjust as directed insulin aspart U-100 (NOVOLOG FLEXPEN U-100 INSULIN) 100 unit/mL inpn Inject 10 Units subcutaneously three times daily before meals. insulin needles, DISPOSABLE, (PEN NEEDLE) 31 gauge x 5/16 ndle 1 Each four times daily. amLODIPine (NORVASC) 5 mg tablet Take 1 tablet by mouth once daily. triamcinolone acetonide (KENALOG) 0.5 % cream Apply 1 application to affected area twice daily. For rash/itching. Apply sparingly. Avoid face/skin fold. simvastatin (ZOCOR) 20 mg tablet take 1 tablet by mouth at bedtime blood sugar diagnostic (BLOOD GLUCOSE TEST) test strip Test blood sugar(s) 3 to 4 times daily as directed. Dx: Type 2 DM - Uncontrolled E11.65 Insulin: Yes nitroglycerin sublingual (NITROQUICK) 0.4 mg SL tablet Dissolve 1 tablet under the tongue as needed. DISSOLVE ON TONGUE FOR CHEST PAIN. IF NO PAIN RELIEF, CALL 911 [id number] 3.5 MG/ML-10,000 UNIT/ML-0.1% EYE DROPS lisinopril (ZESTRIL, PRINIVIL) 20 mg tablet Take 1 tablet by mouth twice daily. Ciclopirox (LOPROX) 8 % solution Apply 1 application to affected area daily at bedtime. Lancets (FINGERSTIX LANCETS) Misc Misc use as directed diclofenac (FLECTOR) 1.3 % topical patch Apply 1 application to affected area. On for 12 hours at a time (Patient not taking: Reported on 04/24/2018 ) codeine-guaiFENesin (ROBITUSSIN AC) 10-100 mg/5 mL syrup Take 5-10 mL by mouth four times daily as needed for Cough. May cause drowsiness. (Patient not taking: Reported on 04/24/2018 ) No current facility-administered medications for this visit. OBJECTIVE: BP 196/84 Pulse 92 Resp 20 Wt 83.6 kg (184 lb 3.2 oz) BMI 34.80 kg/m? Patient is alert, oriented times 3, no apparent distress, affect is bright, reactive. Last 5 Encounter BP Readings: Date: BP: 04/24/2018 196/84 01/27/2018 132/80 01/19/2018 201/86 10/18/2017 150/88 09/01/2017 134/88 Last 5 Encounter Wt Readings: Date: Wt: 04/24/2018 83.6 kg (184 lb 3.2 oz) 01/27/2018 80.9 kg (178 lb 6.4 oz) 11/17/2017 79.4 kg (175 lb) 10/18/2017 80.3 kg (177 lb) 08/04/2017 78 kg (172 lb) Heart: Regular rate, rhythm, no murmurs, gallops, rubs. Lungs: Clear to auscultation, bilaterally, breathing non labored. Ext: No cyanosis, clubbing, or edema. May 23, 2017 ? 5:42 PM Carlos Eduardo De León routed this conversation to [facility] Carlos Eduardo De León ? 5:41 PM Note Stress test reported to show normal heart function and circulation. Continue current medications. We will get together as scheduled. Carlos Eduardo De León MD ASSESSMENT AND PLAN: Encounter Diagnosis ICD-10-CM 1. 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 Diabetic nephropathy associated with type 2 diabetes mellitus (HCC) E11.21 COMP METABOLIC PANEL URINALYSIS WITH MICROSCOPIC 3. Cervicalgia M54.2 4. Chest heaviness R07.89 even when not active; fatigue after sits and rests 5. Essential hypertension I10 TSH BLD T4 FREE/FREE THYROX 6. Paresthesia of both hands R20.2 MAGNESIUM BLD TSH BLD T4 FREE/FREE THYROX right worse 7. Muscle pain M79.10 CK CREATINE KINASE Will follow up with Dr. De León. Found results of stress test under telephone encounters as noted above. Above issues addressed with patient. Patient involved in shared decision making for management of medical issues. History and medications reviewed. Epic updated as needed Refills taken care of and meds adjusted as indicated after reviewed history, exam and labs. Further evaluation and treatment as indicated. Health Maintenance reviewed. Updated record and/or ordered tests as recorded. Encouraged on efforts at healthy diet and regular exercise and adequate sleep. The majority of the visit was spent counseling and/or coordinating care for the patient. Rlng-mh-vsvb time was at least 25 minutes. Abrahan Galvan MD Referring Provider: MANDO DAVENPORT ([facility]) [[id number]] Allergies As of Date: 04/24/2018 Noted Allergy Reaction BENTYL (DICYCLOMINE) 12/30/2016 1 - Mental Status Change Comments: difficulty thinking Caused her to take extra insulin because did not remember taking it BYETTA (EXENATIDE) 01/03/2012 8 - GI Upset CYCLOBENZAPRINE 06/28/2011 14 - Other: See Comments Comments: Vaginal itich DOXYCYCLINE 03/22/2013 11 - Vomiting METFORMIN 03/31/2005 8 - GI Upset NEURONTIN (GABAPENTIN) 10/14/2006 5 - Intolerance Comments: bad dreams NSAIDS (NON-STEROIDAL ANTI-INFLAM*10/23/2007 8 - GI Upset Comments: Avoids all NSAIDs because upsets her stomach Date Reviewed: 04/24/2018 Reviewed by: Lashon Lundberg LPN - Fully Assessed Reason for Visit: Recheck [92] Cmt: Follow up Radiology Mammogram [1485] Cmt: at [facility] Reason For Visit History Recorded Primary Visit Diagnosis: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) [E11.65, E11.39, H42] Other Visit Diagnoses:Diabetic nephropathy associated with type 2 diabetes mellitus (HCC) [E11.21] Cervicalgia [M54.2] Chest heaviness [R07.89] Comment:even when not active; fatigue after sits and rests Essential hypertension [I10] Paresthesia of both hands [R20.2] Comment:right worse Muscle pain [M79.10] Encounter for screening mammogram for breast cancer [Z12.31] Muscle strain of chest wall, sequela [S29.011S] Sternoclavicular joint pain, unspecified laterality [M25.519] Postherpetic neuralgia [B02.29] Comment:try to get patch coered; diclofenac no longer covered; uses for back too Microalbuminuria [R80.9] Order(s):COMP METABOLIC PANEL [SQCMP] Order #: [id number] FUTURE CBC [SQCBC] Order #: [id number] FUTURE CK CREATINE KINASE [SQCK] Order #: [id number] FUTURE HGB A1C [JVLJA1Y] Order #: [id number] FUTURE MAGNESIUM BLD [SQMG1] Order #: [id number] FUTURE TSH BLD [SQTSH] Order #: [id number] FUTURE T4 FREE/FREE THYROX [SQFT4] Order #: [id number] FUTURE URINALYSIS WITH MICROSCOPIC [SQUAWMIC] Order #: [id number]. #:[id number] ARTEMIO SCREENING [8826270] Order #: [id number] FUTURE ARTEMIO SCREENING W SUKUMAR [3449186] Order #: [id number] FUTURE lidocaine (LIDODERM) 5 %Apply 1 Patch as directed every 24 hours. Remove after 12 hours. Location: post-herpetic neuralgia on chestDisp: 30 PatchRfl: 5 simvastatin (ZOCOR) 20 mg tabletTake 1 tablet by mouth daily at bedtime.Disp: 90 tabletRfl: 3 lisinopril (ZESTRIL, PRINIVIL) 20 mg tabletTake 1 tablet by mouth twice daily.Disp: 180 tabletRfl: 3 Prescriptions as of 04/24/2018 Sig: SIMVASTATIN 20 MG TABLET Take 1 tablet by mouth daily * LISINOPRIL 20 MG TABLET Take 1 tablet by mouth twice * DIAZEPAM 5 MG TABLET Take 0.5-1 tablets by mouth o* HYDROCODONE 7.5 MG-ACETAMINOP* Take 1-2 tablets by mouth onc* ACYCLOVIR 5 % TOPICAL CREAM Apply 1 application to affect* INSULIN ASPART U-100 100 UNI* Inject 10 Units subcutaneousl* PEN NEEDLE, DIABETIC 31 GAUGE* 1 Each four times daily. AMLODIPINE 5 MG TABLET Take 1 tablet by mouth once d* X INSULIN DETEMIR (U-100) 100 U* Inject 15 units subcutaneousl* TRIAMCINOLONE ACETONIDE 0.5 %* Apply 1 application to affect* BLOOD SUGAR DIAGNOSTIC STRIPS Test blood sugar(s) 3 to 4 ti* NITROGLYCERIN 0.4 MG SUBLINGU* Dissolve 1 tablet under the t* [id number] 3* CICLOPIROX 8 % TOPICAL SOLUTI* Apply 1 application to affect* * FINGERSTIX LANCETS use as directed LIDOCAINE 5 % TOPICAL PATCH Apply 1 Patch as directed norbert* DICLOFENAC EPOLAMINE 1.3 % TR* Apply 1 application to affect* Patient not taking: Reported on 04/24/2018 CODEINE 10 MG-GUAIFENESIN 100* Take 5-10 mL by mouth four ti* Patient not taking: Reported on 04/24/2018 Medication notes this encounter DIAZEPAM 5 MG TABLET >> Abrahan Galvan MD 04/24/2018 2:49 PM >> ABRAHAN GALVAN MD TueApr 24, 2018 2:49 PM can lasts several months if no flare ups HYDROCODONE 7.5 MG-ACETAMINOPHEN 325 MG TABLET >> Abrahan Galvan MD 04/24/2018 2:49 PM >> ABRAHAN GALVAN MD TueApr 24, 2018 2:49 PM lasts longer than 30 days; 3 to 4 months if pain not severe Problem List As Of Date 04/24/2018 Noted Resolved TRIGGER FINGER [M65.30] INVALID FOR* More... Essential hypertension [I10] INVALID FOR* More... Esophageal reflux [K21.9] INVALID FOR*01/31/2013 More... ALLERGIC RHINITIS NOS [J30.9] INVALID FOR* PERS HX OF DISEASES NEC [V13.8] INVALID FOR* More... TENOSYNOV HAND/WRIST NEC [M65.849, M65.839] INVALID FOR* JOINT CONTRACTURE-HAND [M24.549] INVALID FOR* CORONARY ATHEROSCLER UNSPEC VESSEL [I25.10] INVALID FOR* More... 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 Acute back pain with sciatica [M54.40] INVALID FOR* More... 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 Prescriptions ordered this encounter Disp Refills Start End LIDOCAINE 5 % TOPICAL PATCH 30 P* 5 04/24/2018 Route: TRANSDERM. Sig: Apply 1 Patch as directed every 24 hours. Remove after 12 hours. Location: post-herpetic neuralgia on chest SIMVASTATIN 20 MG TABLET 90 t* 3 04/24/2018 Route: ORAL Sig: Take 1 tablet by mouth daily at bedtime. LISINOPRIL 20 MG TABLET 180 * 3 04/24/2018 Route: ORAL Sig: Take 1 tablet by mouth twice daily. Medications Discontinued During This Encounter simvastatin (ZOCOR) 20 mg tablet 90 t* 1 08/03/2017 04/24/2018 Sig: take 1 tablet by mouth at bedtime Disc: Reason for discontinue is not on file. lisinopril (ZESTRIL, PRINIVIL) 20 mg* 60 t* 11 04/07/2017 04/24/2018 Route: ORAL Sig: Take 1 tablet by mouth twice daily. Disc: Reason for discontinue is not on file. Disposition: Return for May [facility]; add the next 3 months one on one. Follow-up and Disposition History Recorded Encounter Status:Closed by ABRAHAN GALVAN MD on 05/08/18 LAM Observed: 04/04/2018 Status: COMPLETED Source: [place] 10:25 AM [facility] REPOSITORY Office Visit (PODIWS) TORI LORD ([id number]) 1950 F Date Time Provider Department 04/04/18 10:25 AM EL DAVID During your visit today, we recorded the following information about you: El David DPM 04/04/2018 10:53 AM Signed El David DPM Department of Podiatry [address] [facility] [address] Dept: [phone] Dept Diabetic Nail Care SUBJECTIVE: Follow up office visit: This 67 year old female presents to clinic c/o painful toenails. Patient states that the nails are especially painful with shoe gear and pressure. Patient admits to being diabetic and states that their blood sugar was 153 mg/dL a couple days ago. Patient denies claudication type symptoms when walking. No other pedal complaints at this time. No change in medications or medical history since last visit. The preliminary HPI obtained by the septic tank service technician was explained in detail with the patient and my findings have been incorporated in the documentation. El David DPM Hemoglobin A1C (%) Date Value 01/17/2018 8.0 PAST MEDICAL HISTORY Diagnosis Date - Allergic rhinitis, cause unspecified 03/31/2005 - Chronic hepatitis C without hepatic coma (HCC) 03/27/2017 failed to respond to treatment started March 2016; Genotype 2; based on history-- from blood transfusion 1970s - Coronary atherosclerosis of unspecified type of vessel, [place] or graft 12/12/2006 50% lesion in LAD as seen on heart cath 11/29/2006 - Esophageal reflux - Glaucoma 07/29/10 chronic angle closure glaucoma (treated by Dr. 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) 09/05/2014 - Type II or unspecified type diabetes mellitus without mention of complication, not stated as uncontrolled - Unspecified essential hypertension FAMILY HISTORY Problem Relation Age of Onset - Heart Mother - Cancer Brother prostate cancer - other (htn) Sister - Diabetes Brother REVIEW OF SYSTEMS: CONSTITUTIONAL: No fevers, chills, nightsweats, unintended weight loss HEENT: Denies frequent or severe heaches, nasal congestion/sinus symptoms, problematic allergy problems. EYES: No diplopia or blurry vision. CARDIOVASCULAR: No chest pain, dyspnea, palpitations, orthopnea, PND, ankle edema. PULM: No dyspnea, unexplained cough. GI: No dysphagia/odynophagia, problematic reflux, constipation, diarrhea, changes in stool habits, hematochezia, melena. : No new urinary complaints, including dysuria, gross hematuria or pyuria. NEURO: No new balance problems, peripheral weakness/paresthesias or numbness of concern. MUSC-SKEL: No new joint pain, swelling, or erythema. PSY: No concerns regarding depression, anxiety or panic. INTEGUMENTARY: No new skin changes (rash, new or changing mole, new growth) OBJECTIVE: Patient presents to clinic ambulating in diabetic shoes. Vasc: DP and PT pulses are palpable bilateral. CFT is less than 5 seconds bilateral. Skin temperature is warm to warm proximal to distal bilateral. There is no edema or varicosities noted. Hair growth present. Neuro: Protective sensation is intact to the foot and toes when tested with the 5.07 SWM bilateral. Vibratory sensation is decreased at the hallux bilateral. significant neurological defecits. Derm: Inspection and palpation performed. Nails 1-5 b/l are painful, discolored-yellow, thick, crumbly, dystrophic and with subungal debris. Skin is dry and scaly b/l. Hyperkeratosis left hallux. NO ulcerations, scars, verruca or other lesions noted. Ortho: Ankle joint DF is full with the knee extended and full with knee flexed. No pain or crepitus noted. STJ, MTJ ROM are full and free of pain or crepitus. Muscle strength is 5/5 for dorsiflexors, plantarflexors, inverters, everters. ASSESSMENT: (E11.42) Diabetic polyneuropathy associated with type 2 diabetes mellitus (HCC) (primary encounter diagnosis) (B35.1) Onychomycosis (M79.675) Pain in toe of left foot (M79.674) Pain in toe of right foot (L85.3) Xerosis cutis PLAN:Patient was seen and evaluated. Nails 1-5 bilateral were debrided in length and thickness. Callus filed to left hallux with sanding disk. Recommend lotion to feet daily. Diabetic shoes ordered. Patient was instructed on the continued importance of diabetic foot care along with proper diet and keeping their blood sugar under control to prevent complications. Patient is to RTC in 3-4 months. El David DPM Referring Provider: EL DAVID [[id number]] Allergies As of Date: 04/04/2018 Noted Allergy Reaction BENTYL (DICYCLOMINE) 12/30/2016 1 - Mental Status Change Comments: difficulty thinking Caused her to take extra insulin because did not remember taking it BYETTA (EXENATIDE) 01/03/2012 8 - GI Upset CYCLOBENZAPRINE 06/28/2011 14 - Other: See Comments Comments: Vaginal itich DOXYCYCLINE 03/22/2013 11 - Vomiting METFORMIN 03/31/2005 8 - GI Upset NEURONTIN (GABAPENTIN) 10/14/2006 5 - Intolerance Comments: bad dreams NSAIDS (NON-STEROIDAL ANTI-INFLAM*10/23/2007 8 - GI Upset Comments: Avoids all NSAIDs because upsets her stomach Date Reviewed: 04/04/2018 Reviewed by: Nikki Mata RN - Fully Assessed Reason for Visit: Diabetic Foot Care [916] Primary Visit Diagnosis:Diabetic polyneuropathy associated with type 2 diabetes mellitus (HCC) [E11.42] Other Visit Diagnoses:Onychomycosis [B35.1] Pain in toe of left foot [M79.675] Pain in toe of right foot [M79.674] Xerosis cutis [L85.3] Order(s):DIAB SHOE FOR DENSITY INSERT [[id number]] Order #: [id number] Prescriptions as of 04/04/2018 Sig: DICLOFENAC EPOLAMINE 1.3 % TR* Apply 1 application to affect* ACYCLOVIR 5 % TOPICAL CREAM Apply 1 application to affect* INSULIN DETEMIR (U-100) 100 U* Inject 15 units subcutaneousl* INSULIN ASPART U-100 100 UNI* Inject 10 Units subcutaneousl* PEN NEEDLE, DIABETIC 31 GAUGE* 1 Each four times daily. AMLODIPINE 5 MG TABLET Take 1 tablet by mouth once d* HYDROCODONE 7.5 MG-ACETAMINOP* Take 1-2 tablets by mouth onc* TRIAMCINOLONE ACETONIDE 0.5 %* Apply 1 application to affect* DIAZEPAM 5 MG TABLET Take 0.5-1 tablets by mouth o* SIMVASTATIN 20 MG TABLET take 1 tablet by mouth at bed* BLOOD SUGAR DIAGNOSTIC STRIPS Test blood sugar(s) 3 to 4 ti* NITROGLYCERIN 0.4 MG SUBLINGU* Dissolve 1 tablet under the t* [id number]-[id number] 3* LISINOPRIL 20 MG TABLET Take 1 tablet by mouth twice * CICLOPIROX 8 % TOPICAL SOLUTI* Apply 1 application to affect* * FINGERSTIX LANCETS use as directed CODEINE 10 MG-GUAIFENESIN 100* Take 5-10 mL by mouth four ti* Problem List As Of Date 04/04/2018 Noted Resolved TRIGGER FINGER [M65.30] INVALID FOR* More... Essential hypertension [I10] INVALID FOR* More... Esophageal reflux [K21.9] INVALID FOR*01/31/2013 More... ALLERGIC RHINITIS NOS [J30.9] INVALID FOR* PERS HX OF DISEASES NEC [V13.8] INVALID FOR* More... TENOSYNOV HAND/WRIST NEC [M65.849, M65.839] INVALID FOR* JOINT CONTRACTURE-HAND [M24.549] INVALID FOR* CORONARY ATHEROSCLER UNSPEC VESSEL [I25.10] INVALID FOR* More... 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 Acute back pain with sciatica [M54.40] INVALID FOR* More... 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 Disposition: Return in about 3 months (around 07/04/2018) for nail care. Follow-up and Disposition History Recorded Encounter Status:Closed by EL DAVID DPM on 04/04/18 PROGRESS Observed: 04/04/2018 Status: COMPLETED Source: [place] 10:22 AM [facility] REPOSITORY O ID: [id number] Author: El David Service: (none) Author Type: Physician Type: Progress Notes Filed: 04/04/2018 10:53 AM Note Text: El David DPM Department of Podiatry [address] [facility] [address] Dept: [phone] Dept Diabetic Nail Care SUBJECTIVE: Follow up office visit: This 67 year old female presents to clinic c/o painful toenails. Patient states that the nails are especially painful with shoe gear and pressure. Patient admits to being diabetic and states that their blood sugar was 153 mg/dL a couple days ago. Patient denies claudication type symptoms when walking. No other pedal complaints at this time. No change in medications or medical history since last visit. The preliminary HPI obtained by the septic tank service technician was explained in detail with the patient and my findings have been incorporated in the documentation. El David DPM Hemoglobin A1C (%) Date Value 01/17/2018 8.0 PAST MEDICAL HISTORY Diagnosis Date - Allergic rhinitis, cause unspecified 03/31/2005 - Chronic hepatitis C without hepatic coma (HCC) 03/27/2017 failed to respond to treatment started March 2016; Genotype 2; based on history-- from blood transfusion - Coronary atherosclerosis of unspecified type of vessel, [place] or graft 12/12/2006 50% lesion in LAD as seen on heart cath 11/29/2006 - Esophageal reflux - Glaucoma 07/29/10 chronic angle closure glaucoma (treated by Dr. 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) 09/05/2014 - Type II or unspecified type diabetes mellitus without mention of complication, not stated as uncontrolled - Unspecified essential hypertension FAMILY HISTORY Problem Relation Age of Onset - Heart Mother - Cancer Brother prostate cancer - other (htn) Sister - Diabetes Brother REVIEW OF SYSTEMS: CONSTITUTIONAL: No fevers, chills, nightsweats, unintended weight loss HEENT: Denies frequent or severe heaches, nasal congestion/sinus symptoms, problematic allergy problems. EYES: No diplopia or blurry vision. CARDIOVASCULAR: No chest pain, dyspnea, palpitations, orthopnea, PND, ankle edema. PULM: No dyspnea, unexplained cough. GI: No dysphagia/odynophagia, problematic reflux, constipation, diarrhea, changes in stool habits, hematochezia, melena. : No new urinary complaints, including dysuria, gross hematuria or pyuria. NEURO: No new balance problems, peripheral weakness/paresthesias or numbness of concern. MUSC-SKEL: No new joint pain, swelling, or erythema. PSY: No concerns regarding depression, anxiety or panic. INTEGUMENTARY: No new skin changes (rash, new or changing mole, new growth) OBJECTIVE: Patient presents to clinic ambulating in diabetic shoes. Vasc: DP and PT pulses are palpable bilateral. CFT is less than 5 seconds bilateral. Skin temperature is warm to warm proximal to distal bilateral. There is no edema or varicosities noted. Hair growth present. Neuro: Protective sensation is intact to the foot and toes when tested with the 5.07 SWM bilateral. Vibratory sensation is decreased at the hallux bilateral. significant neurological defecits. Derm: Inspection and palpation performed. Nails 1-5 b/l are painful, discolored-yellow, thick, crumbly, dystrophic and with subungal debris. Skin is dry and scaly b/l. Hyperkeratosis left hallux. NO ulcerations, scars, verruca or other lesions noted. Ortho: Ankle joint DF is full with the knee extended and full with knee flexed. No pain or crepitus noted. STJ, MTJ ROM are full and free of pain or crepitus. Muscle strength is 5/5 for dorsiflexors, plantarflexors, inverters, everters. ASSESSMENT: (E11.42) Diabetic polyneuropathy associated with type 2 diabetes mellitus (HCC) (primary encounter diagnosis) (B35.1) Onychomycosis (M79.675) Pain in toe of left foot (M79.674) Pain in toe of right foot (L85.3) Xerosis cutis PLAN:Patient was seen and evaluated. Nails 1-5 bilateral were debrided in length and thickness. Callus filed to left hallux with sanding disk. Recommend lotion to feet daily. Diabetic shoes ordered. Patient was instructed on the continued importance of diabetic foot care along with proper diet and keeping their blood sugar under control to prevent complications. Patient is to RTC in 3-4 months. El David DPM ENDOCRINOLOGY VISIT Observed: 03/08/2018 Status: F Source: [place] REPORT 7:41 AM [facility] REPOSITORY [facility] [address] [place] [address]. [address] [place] [address] OFFICE VISIT Date of Service: 03/07/18 MR#: [id number] Acct: [id number] Name: TORI LORD Rep #: [id number] : 1950 Provider: Sheryl Lopez NP Age/Sex: 67/F Location: [facility] [place] Status: Signed HPI History of present illness HPI History of present illness History of present illness Tori Lord is a 67 year old female with diabetes type 2. Diagnosed in 1997. Continues on levemir 17 units in am and 8 units in pm. Also continues on meal insulin novolog 10 units each meal. A1c down to 7.3 in October 2017 Improved from previous 7.4 Pt denies difficulty with injections or self monitoring of BG. Denies any signs of infection or irritation at site of injections. Reports taking insulin as directed Since our last visit she denies excessive thirst, increased frequency of urination, chest pain or dyspnea. Follows a healthy diet, Is compliant with medication and is tolerating without side effects. Recent elevation in BP with changes in BP medication. PCP managing. At time of visit: -Pt denies symptoms of hypertensive emergency (CP,SOB,JACK, or blurred vision) and hypotension(dizziness or lightheadedness) -Pt denies symptoms of hypoglycemia ( sweaty, confusion, anxiety, tremor, hunger, palpitations) and hyperglycemia ( polydipsia, polyuria) -Pt denies potential medication adverse effect. Hypoglycemia Aware of hypoglycemia: yes Able to self treat low BG: Yes Frequent low Blood sugar: No Has supply of glucagon: Yes SMBG 2-4 times daily Average currently 180 Diet 3 meals Low sodium Does not carb count Type: type 2 Exam Const General: comfortable, no acute distress Nutritional Appearance: overweight Orientation: oriented x3 HENMT Head: normal to inspection, atraumatic Ears: hearing grossly normal bilaterally Mouth: oral mucosae normal, moist mucous membranes Teeth and gingiva: dentition normal Eyes General: appearance normal, both eyes and all related structures Conjunctivae: conjunctivae normal Pupils: PERRL Neck Neck: normal visual inspection, full ROM Neck mass: No Thyroid: thyroid normal Chest Chest palpation AND inspection: deferred Resp Effort AND Inspection: normal respiratory effort, able to speak in complete sentences, symmetric chest movement Auscultation: Bilateral: Clear to Auscultation Cardio Rate: regular rate Rhythm: regular rhythm Heart Sounds: S1 normal, S2 normal GI Inspection: normal to inspection Auscultation: normal bowel sounds Palpation: soft General: deferred Musc Cervical Spine: cervical ROM normal Skin General: no rashes or lesions noted Wounds: no wounds Diabetic Foot Pulses: L dorsalis pedis pulse: normal, R dorsalis pedis pulse: normal Monofilament test: Left foot: normal, Right foot: normal Neuro General: gait normal Cognition: normal cognition Speech: speech normal Gait: normal gait Extrem General: normal to inspection, full ROM Psych Appearance: well kempt Mental Status: mental status grossly normal Speech and Movement: speech and movement normal Thought Content: normal Judgment: judgment good Type: type 2 Glucose control symptoms: Reports high post-meal glucose Weight and fatigue symptoms: Denies snoring Cardiopulmonary symptoms: Denies chest pain at rest, dyspnea on exertion, lightheadedness or myalgias GI symptoms: Denies constipation, diarrhea, nausea/dyspepsia or vomiting Other symptoms: Denies blurry vision or change in vision Pertinent visit history: Denies recent visit to ER or recent glucagon injection Self monitoring: Yes Diabetes education in past year: Yes Glucose testing: demonstrates correct use of meter Sick day education - understands ketone testing: Yes Physical activity: regular Intake Vital Signs03/07/18 Height 5 ft 2 in 03/07/18 Weight: 177 lb 8 oz 03/07/18 Body Mass Index (BMI) 32.4 03/07/18 Blood Pressure 172/80 03/07/18 Blood Pressure Location Lt popliteal 03/07/18 Blood Pressure Position Sitting Intake Visit Reasons: Diabetes follow-up Nurse Discharge Planner Required: No Accompanied by: Self Is patient in pain?: No Allergies metformin Allergy (Verified 03/07/18 13:21) Unknown Medications Diazepam [Valium] 5 mg PO DAILY 04/15/16 [History Confirmed 03/07/18] Lisinopril [Zestril] 20 mg PO BID 04/15/16 [History Confirmed 03/07/18] Simvastatin [Zocor] 20 mg PO QHS 04/15/16 [History Confirmed 03/07/18] blood sugar diagnostic strips See Dose Instructions .ROUTE .MEDSUPPLY #20 ea 07/26/17 [History Confirmed 03/07/18] hydrocodone 7.5 mg-acetaminophen 300 mg tablet 1 tab PO Q6H PRN 07/26/17 [History Confirmed 03/07/18] insulin aspart U-100 100 unit/mL subcutaneous pen 10 unit SC TID ml 07/26/17 [History Confirmed 03/07/18] insulin detemir (U-100) 100 unit/mL subcutaneous solution See Label Instructions SC BID 07/26/17 [History Confirmed 03/07/18] Hydrocodone Bitart/Apap 5-325 [[place] 5/325] 1 - 2 tab PO Q4H PRN PRN 3 Days #12 tab 11/02/17 [Rx Confirmed 03/07/18] Is last menstrual period known: No Post menopausal: Yes Patient : No Nurse's Note: blood sugars : low : high : PFSH Medical History Back problem (Acute) Corneal injury (Acute) Diabetes type 2, controlled (Acute) Hepatitis (Acute) Right wrist pain (Acute) Surgical History History of total abdominal hysterectomy (Acute) S/P colonoscopy (Acute) Family History Mother Arthritis Father Arthritis Social History Smoking Status: Never smoker second hand exposure: No alcohol intake: never substance use type: does not use ROS Const Constitutional: Positive for fatigue; no anorexia, body ache, chills, fever(s), frequent falls, decreased energy, malaise, night sweats, weakness, weight change, sleep problems, abnormal sleep pattern, change in appetite, other, headache(s), snoring or excessive sweating Eyes Eyes: No blurry vision, change in vision, double vision, discharge, dry eyes, bulging eyes, floaters, visual disturbances, eye pain, light sensitivity, spots in vision, tunnel vision or other ENT ENT: No abnormal hearing, ear pain, ear discharge, ear pressure, hearing loss, tinnitus, dizziness/vertigo, balance problems, nosebleed/epistaxis, nasal congestion, nasal obstruction, nose pain, sinus pressure, sinus pain, nasal discharge, post nasal drip, headache(s), facial pain, dental pain, dry mouth, bad breath, hoarseness, lip swelling, mouth lesions, mouth pain, sore throat, tongue swelling, throat swelling, other, difficulty swallowing or neck pain Resp Respiratory: No cough, change in phlegm color, chest congestion, excessive phlegm production, hemoptysis, pain on inspiration, shortness of breath, pain with cough, snoring, stridor, wheezing or other Cardio Cardiology: No chest pain at rest, chest pain with exertion, leg pain with exertion, excessive sweating, shortness of breath, dyspnea on exertion, generalized swelling, irregular heart rhythm, lightheadedness, orthopnea, radiating jaw, neck or arm pain, fast heart rate, slow heart rate, palpitations or other Gastro GI: Positive for abdominal pain (r lower abdomin); no belching, bloating, change in bowel habits, change in stool character, coffee ground emesis, constipation, cramping, diarrhea, heartburn, difficulty swallowing, feeling full early, excessive flatus, incontinent of stools, Vomiting blood/hematemesis, blood in stool, loose stools, Black,tarry stools, nausea/dyspepsia, pain with swallowing, vomiting or other Genitourinary-Female: No difficulty urinating, burning urination, painful urination, urinary incontinence, urinary frequency, urinary urgency, urinary hesitancy, urinary retention, blood in urine, Frequent nighttime urination/ nocturia, post void dribbling, suprapubic fullness, side pain, sexual problems, genital lesions, genital itching, hot flashes, abnormal periods, abnormal vaginal bleeding, absent period, painful periods, light periods, heavy periods, difficulty getting , painful intercourse, pelvic pain, vaginal dryness, vaginal odor, Vaginal Itching or other Musc Musculoskeletal: No abnormal walking, joint pain, back pain, deformity, joint swelling, limited range of motion, loss of height, muscle cramps, muscle weakness, decreased muscle mass, body aches, neck pain, numbness, radiating pain into limb, stiffness, tingling or other Skin Skin: No acne, hair loss, change in hair, nail changes, boil, change in skin color, dry skin, redness, excessive hair growth, yellowing of the skin, lesions, itching, rash, skin pain, skin ulcer, sores, skin swelling, wounds or other Breast Breast: No other Neuro Neurology: No frequent falls, weakness, visual disturbances, abnormal hearing, headache(s), abnormal walking, numbness or tingling Psych Psychiatric: No abnormal sleep pattern, No change in appetite Endo Endocrine: Positive for fatigue; no other or excessive sweating Aller/Imm Allergy/Immunologic: No lip swelling, tongue swelling, throat swelling, wheezing or itchy eyes Assessment AND Plan 1. Type 2 diabetes mellitus without complication, unspecified nursing home insulin use status E11.9 Plan Reports she has beenoverly stressed due to husbands health. He has been up frequently at night and her sleep is unterupted. She is occ forgetting her insulin or taking it off scheduled due to his health. She is working hard to get things back on schedule. This has created higher BG readings and she thinks is responsible for her higher BG readings. Labs done at [facility]. Will obtain copies. No adjustments at this time. Plan Detail Additional Comments 1. Please schedule follow up in 3 months. 2. Lab work one week before appointment. 3. Discussed importance of regular exercise and recommend starting or continuing a regular exercise program for good health. 4. The patient was encouraged to lose weight for good health 5. The importance of monitoring blood sugar regularly was reviewed. 6. The importance of monitoring the HBA1c level regularly was reviewed. 7. The importance of prper foot care and regularly checking feet to prevent sores and loss of limbs was reviewed. 8. The importance of keeping BP at or below 130/80 to prevent stroke, heart attacks, kidney failure, blindness was reviewed. Spent approximately 30 minutes with patient with over 50% of time spent in discussion and counseling regarding medication adjustment, symptoms and treatment of hypoglycemia, diet adherence, and checking BG before driving. Coding Level of Care Code Off vis,est,level 3 Diagnoses Type 2 diabetes mellitus without complication, unspecified intermediate teacher insulin use status E11.9 Diabetes mellitus type: type 2 Diabetes mellitus complication status: without complication Diabetes mellitus intermediate teacher insulin use: unspecified nursing home insulin use status 03/08/18 0741 <Electronically signed by Sheryl JONES> Date Sheryl JONES Cosigner Signature: Date (if applicable) CC: PROGRESS Observed: 02/16/2018 Status: COMPLETED Source: [place] 10:00 AM [facility] REPOSITORY [facility] ID: [id number] Author: Abrahan Galvan Service: (none) Author Type: Physician Type: Progress Notes Filed: 03/02/2018 11:50 PM Note Text: Patient presents for DM SMA with Dr. Galvan and Yoli Lan, PharmD GOALS: A1c < 8% Tori Lord is a 67 year old female was last seen by PCP, Dr. Galvan on 01/19. At last PCP visit amlodipine was started. ? Patient denies CP, SOB, JACK, blurred vision, dizziness or lightheadedness ? Patient denies symptoms of hypoglycemia (sweating, anxiety, palpitations, hunger, and tremor) ? Patient denies symptoms hyperglycemia (polyuria, polydipsia) ? Patient denies potential medication adverse effects ALLERGIES Allergen Reactions - Bentyl [Dicyclomine] Mental Status Change difficulty thinking Caused her to take extra insulin because did not remember taking it - Byetta [Exenatide] GI Upset - Cyclobenzaprine Other: See Comments Vaginal itich - Doxycycline Vomiting - Metformin GI Upset - Neurontin [Gabapent* Intolerance bad dreams - Nsaids (Non-Steroid* GI Upset Avoids all NSAIDs because upsets her stomach PAST MEDICAL HISTORY Diagnosis Date - Allergic rhinitis, cause unspecified 03/31/2005 - Chronic hepatitis C without hepatic coma (HCC) 03/27/2017 failed to respond to treatment started March 2016; Genotype 2; based on history-- from blood transfusion - Coronary atherosclerosis of unspecified type of vessel, [place] or graft 12/12/2006 50% lesion in LAD as seen on heart cath 11/29/2006 - Esophageal reflux - Glaucoma 07/29/10 chronic angle closure glaucoma (treated by Dr. 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) 09/05/2014 - Type II or unspecified type diabetes mellitus without mention of complication, not stated as uncontrolled - Unspecified essential hypertension Current Outpatient Prescriptions: acyclovir (ZOVIRAX) 5 % crea Apply 1 application to affected area twice daily. Location: vulvar insulin detemir U-100 (LEVEMIR FLEXTOUCH U-100 INSULN) 100 unit/mL (3 mL) inpn injection Inject 15 units subcutaneously every morning;inject 10 units subcutaneously every evening. Adjust as directed insulin aspart U-100 (NOVOLOG FLEXPEN U-100 INSULIN) 100 unit/mL inpn Inject 10 Units subcutaneously three times daily before meals. insulin needles, DISPOSABLE, (PEN NEEDLE) 31 gauge x 5/16 ndle 1 Each four times daily. amLODIPine (NORVASC) 5 mg tablet Take 1 tablet by mouth once daily. HYDROcodone-Acetaminophen (NORCO) 7.5-325 mg per tablet Take 1-2 tablets by mouth once daily for 30 days. as needed.Earliest Fill Date: 11/17/17 triamcinolone acetonide (KENALOG) 0.5 % cream Apply 1 application to affected area twice daily. For rash/itching. Apply sparingly. Avoid face/skin fold. diazePAM (VALIUM) 5 mg tablet Take 0.5-1 tablets by mouth once daily as needed for up to 30 days. simvastatin (ZOCOR) 20 mg tablet take 1 tablet by mouth at bedtime blood sugar diagnostic (BLOOD GLUCOSE TEST) test strip Test blood sugar(s) 3 to 4 times daily as directed. Dx: Type 2 DM - Uncontrolled E11.65 Insulin: Yes nitroglycerin sublingual (NITROQUICK) 0.4 mg SL tablet Dissolve 1 tablet under the tongue as needed. DISSOLVE ON TONGUE FOR CHEST PAIN. IF NO PAIN RELIEF, CALL 911 [id number] 3.5 MG/ML-10,000 UNIT/ML-0.1% EYE DROPS lisinopril (ZESTRIL, PRINIVIL) 20 mg tablet Take 1 tablet by mouth twice daily. diclofenac (FLECTOR) 1.3 % topical patch Apply 1 application to affected area. On for 12 hours at a time codeine-guaiFENesin (ROBITUSSIN AC) 10-100 mg/5 mL syrup Take 5-10 mL by mouth four times daily as needed for Cough. May cause drowsiness. Ciclopirox (LOPROX) 8 % solution Apply 1 application to affected area daily at bedtime. Lancets (FINGERSTIX LANCETS) [facility] as directed No current facility-administered medications for this visit. VITALS: There were no vitals taken for this visit. Last 3 Encounter BP Readings: Date: BP: 01/27/2018 132/80 01/19/2018 201/86 10/18/2017 150/88 Wt: 80.9 kg (178 lb 6.4 oz) BMI: 33.71 kg/(m2) LABS Lab Results Component Value Date HBA1C 8.0 01/17/2018 HBA1C 8.0 09/08/2017 HBA1C 9.4 06/06/2017 CMP: Glucose 124 09/08/2017 BUN 16 09/08/2017 Creatinine 1.03 09/08/2017 Sodium 144 09/08/2017 Potassium 4.5 09/08/2017 Chloride 105 09/08/2017 CO2 29 09/08/2017 Protein, Total 6.9 09/08/2017 Albumin 3.8 09/08/2017 Calcium 8.8 09/08/2017 Alkaline Phosphatase 58 09/08/2017 Bilirubin, Total 0.5 09/08/2017 AST 18 09/08/2017 ALT 14 09/08/2017 Estimated Creatinine Clearance: 50.3 mL/min (A) (based on SCr of 1.03 mg/dL (H)). Last Lipid Panel Lab Results Component Value Date CHOL 184 09/08/2017 Lab Results Component Value Date HDL 57 09/08/2017 Lab Results Component Value Date LDL 113 09/08/2017 Lab Results Component Value Date TG 70 09/08/2017 Albumin/Creat Ratio (mg/g) Date Value 09/08/2017 1,507 (H) ASSESSMENT/PLAN: 1. 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 - Continue current medications 2. Muscle strain of chest wall, sequela - ICD9: 905.7, ICD10: S29.011S Continue present management. Further evaluation and treatment as indicated. - DICLOFENAC EPOLAMINE 1.3 % TRANSDERMAL 12 HOUR PATCH 3. Sternoclavicular joint pain, unspecified laterality - ICD9: 719.41, ICD10: M25.519 Continue present management. Further evaluation and treatment as indicated. - DICLOFENAC EPOLAMINE 1.3 % TRANSDERMAL 12 HOUR PATCH Patient is scheduled to see PCP 04/24. Patient to return to clinic for PharmD f/u next DM SMA. Patient verbalized understanding of instructions. Dr. Galvan and Yoli Lan PharmD The patient was seen; chart reviewed and I concur with the above evaluation and plan. PharmD and I discussed with DM SMA group medications for management of DM, HTN and lipids. Also reviewed diet and exercise to help with control of DM. Discussed with each patient individual meds and management of their diabetes issues. Note that patient was not able to stay for whole appointment and nurse was not able to get BP, etc since also came late. Did participate in part of group discussion about diabetes and healthy diet, etc. Abrahan Galvan MD CNOV Observed: 02/16/2018 Status: COMPLETED Source: [place] 10:00 AM [facility] REPOSITORY Office Visit (INTMWS) TORI LORD ([id number]) 1950 F Date Time Provider Department 02/16/18 10:00 AM ABRAHAN GALVAN During your visit today, we recorded the following information about you: Abrahan Galvan MD 03/02/2018 11:50 PM Signed Patient presents for DM SMA with Dr. Galvan and Yoli Lan, ScottD GOALS: A1c < 8% Tori Lord is a 67 year old female was last seen by PCP, Dr. Galvan on 01/19. At last PCP visit amlodipine was started. ? Patient denies CP, SOB, JACK, blurred vision, dizziness or lightheadedness ? Patient denies symptoms of hypoglycemia (sweating, anxiety, palpitations, hunger, and tremor) ? Patient denies symptoms hyperglycemia (polyuria, polydipsia) ? Patient denies potential medication adverse effects ALLERGIES Allergen Reactions - Bentyl [Dicyclomine] Mental Status Change difficulty thinking Caused her to take extra insulin because did not remember taking it - Byetta [Exenatide] GI Upset - Cyclobenzaprine Other: See Comments Vaginal itich - Doxycycline Vomiting - Metformin GI Upset - Neurontin [Gabapent* Intolerance bad dreams - Nsaids (Non-Steroid* GI Upset Avoids all NSAIDs because upsets her stomach PAST MEDICAL HISTORY Diagnosis Date - Allergic rhinitis, cause unspecified 03/31/2005 - Chronic hepatitis C without hepatic coma (HCC) 03/27/2017 failed to respond to treatment started March 2016; Genotype 2; based on history-- from blood transfusion - Coronary atherosclerosis of unspecified type of vessel, [place] or graft 12/12/2006 50% lesion in LAD as seen on heart cath 11/29/2006 - Esophageal reflux - Glaucoma 07/29/10 chronic angle closure glaucoma (treated by Dr. 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) 09/05/2014 - Type II or unspecified type diabetes mellitus without mention of complication, not stated as uncontrolled - Unspecified essential hypertension Current Outpatient Prescriptions: acyclovir (ZOVIRAX) 5 % crea Apply 1 application to affected area twice daily. Location: vulvar insulin detemir U-100 (LEVEMIR FLEXTOUCH U-100 INSULN) 100 unit/mL (3 mL) inpn injection Inject 15 units subcutaneously every morning;inject 10 units subcutaneously every evening. Adjust as directed insulin aspart U-100 (NOVOLOG FLEXPEN U-100 INSULIN) 100 unit/mL inpn Inject 10 Units subcutaneously three times daily before meals. insulin needles, DISPOSABLE, (PEN NEEDLE) 31 gauge x 5/16 ndle 1 Each four times daily. amLODIPine (NORVASC) 5 mg tablet Take 1 tablet by mouth once daily. HYDROcodone-Acetaminophen (NORCO) 7.5-325 mg per tablet Take 1-2 tablets by mouth once daily for 30 days. as needed.Earliest Fill Date: 11/17/17 triamcinolone acetonide (KENALOG) 0.5 % cream Apply 1 application to affected area twice daily. For rash/itching. Apply sparingly. Avoid face/skin fold. diazePAM (VALIUM) 5 mg tablet Take 0.5-1 tablets by mouth once daily as needed for up to 30 days. simvastatin (ZOCOR) 20 mg tablet take 1 tablet by mouth at bedtime blood sugar diagnostic (BLOOD GLUCOSE TEST) test strip Test blood sugar(s) 3 to 4 times daily as directed. Dx: Type 2 DM - Uncontrolled E11.65 Insulin: Yes nitroglycerin sublingual (NITROQUICK) 0.4 mg SL tablet Dissolve 1 tablet under the tongue as needed. DISSOLVE ON TONGUE FOR CHEST PAIN. IF NO PAIN RELIEF, CALL 911 EPXCZOLV-[id number]-XRBVIXTW 3.5 MG/ML-10,000 UNIT/ML-0.1% EYE DROPS lisinopril (ZESTRIL, PRINIVIL) 20 mg tablet Take 1 tablet by mouth twice daily. diclofenac (FLECTOR) 1.3 % topical patch Apply 1 application to affected area. On for 12 hours at a time codeine-guaiFENesin (ROBITUSSIN AC) 10-100 mg/5 mL syrup Take 5-10 mL by mouth four times daily as needed for Cough. May cause drowsiness. Ciclopirox (LOPROX) 8 % solution Apply 1 application to affected area daily at bedtime. Lancets (FINGERSTIX LANCETS) Misc Misc use as directed No current facility-administered medications for this visit. VITALS: There were no vitals taken for this visit. Last 3 Encounter BP Readings: Date: BP: 01/27/2018 132/80 01/19/2018 201/86 10/18/2017 150/88 Wt: 80.9 kg (178 lb 6.4 oz) BMI: 33.71 kg/(m2) LABS Lab Results Component Value Date HBA1C 8.0 01/17/2018 HBA1C 8.0 09/08/2017 HBA1C 9.4 06/06/2017 CMP: Glucose 124 09/08/2017 BUN 16 09/08/2017 Creatinine 1.03 09/08/2017 Sodium 144 09/08/2017 Potassium 4.5 09/08/2017 Chloride 105 09/08/2017 CO2 29 09/08/2017 Protein, Total 6.9 09/08/2017 Albumin 3.8 09/08/2017 Calcium 8.8 09/08/2017 Alkaline Phosphatase 58 09/08/2017 Bilirubin, Total 0.5 09/08/2017 AST 18 09/08/2017 ALT 14 09/08/2017 Estimated Creatinine Clearance: 50.3 mL/min (A) (based on SCr of 1.03 mg/dL (H)). Last Lipid Panel Lab Results Component Value Date CHOL 184 09/08/2017 Lab Results Component Value Date HDL 57 09/08/2017 Lab Results Component Value Date LDL 113 09/08/2017 Lab Results Component Value Date TG 70 09/08/2017 Albumin/Creat Ratio (mg/g) Date Value 09/08/2017 1,507 (H) ASSESSMENT/PLAN: 1. 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 - Continue current medications 2. Muscle strain of chest wall, sequela - ICD9: 905.7, ICD10: S29.011S Continue present management. Further evaluation and treatment as indicated. - DICLOFENAC EPOLAMINE 1.3 % TRANSDERMAL 12 HOUR PATCH 3. Sternoclavicular joint pain, unspecified laterality - ICD9: 719.41, ICD10: M25.519 Continue present management. Further evaluation and treatment as indicated. - DICLOFENAC EPOLAMINE 1.3 % TRANSDERMAL 12 HOUR PATCH Patient is scheduled to see PCP 04/24. Patient to return to clinic for PharmD f/u next DM SMA. Patient verbalized understanding of instructions. Dr. Galvan and Yoli Lan PharmD The patient was seen; chart reviewed and I concur with the above evaluation and plan. PharmD and I discussed with DM SMA group medications for management of DM, HTN and lipids. Also reviewed diet and exercise to help with control of DM. Discussed with each patient individual meds and management of their diabetes issues. Note that patient was not able to stay for whole appointment and nurse was not able to get BP, etc since also came late. Did participate in part of group discussion about diabetes and healthy diet, etc. Abrahan Galvan MD Referring Provider: SELF [[id number]] Allergies As of Date: 02/16/2018 Noted Allergy Reaction BENTYL (DICYCLOMINE) 12/30/2016 1 - Mental Status Change Comments: difficulty thinking Caused her to take extra insulin because did not remember taking it BYETTA (EXENATIDE) 01/03/2012 8 - GI Upset CYCLOBENZAPRINE 06/28/2011 14 - Other: See Comments Comments: Vaginal itich DOXYCYCLINE 03/22/2013 11 - Vomiting METFORMIN 03/31/2005 8 - GI Upset NEURONTIN (GABAPENTIN) 10/14/2006 5 - Intolerance Comments: bad dreams NSAIDS (NON-STEROIDAL ANTI-INFLAM*10/23/2007 8 - GI Upset Comments: Avoids all NSAIDs because upsets her stomach Date Reviewed: 01/27/2018 Reviewed by: Veronica Cummins LPN - Fully Assessed Primary Visit Diagnosis: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 On for 12 hours at a timeDisp: 30 PatchRfl: 5 Prescriptions as of 02/16/2018 Sig: DICLOFENAC EPOLAMINE 1.3 % TR* Apply 1 application to affect* ACYCLOVIR 5 % TOPICAL CREAM Apply 1 application to affect* INSULIN DETEMIR (U-100) 100 U* Inject 15 units subcutaneousl* INSULIN ASPART U-100 100 UNI* Inject 10 Units subcutaneousl* PEN NEEDLE, DIABETIC 31 GAUGE* 1 Each four times daily. AMLODIPINE 5 MG TABLET Take 1 tablet by mouth once d* HYDROCODONE 7.5 MG-ACETAMINOP* Take 1-2 tablets by mouth onc* TRIAMCINOLONE ACETONIDE 0.5 %* Apply 1 application to affect* DIAZEPAM 5 MG TABLET Take 0.5-1 tablets by mouth o* SIMVASTATIN 20 MG TABLET take 1 tablet by mouth at bed* BLOOD SUGAR DIAGNOSTIC STRIPS Test blood sugar(s) 3 to 4 ti* NITROGLYCERIN 0.4 MG SUBLINGU* Dissolve 1 tablet under the t* [id number]-[id number] 3* LISINOPRIL 20 MG TABLET Take 1 tablet by mouth twice * CODEINE 10 MG-GUAIFENESIN 100* Take 5-10 mL by mouth four ti* CICLOPIROX 8 % TOPICAL SOLUTI* Apply 1 application to affect* * FINGERSTIX LANCETS use as directed Problem List As Of Date 02/16/2018 Noted Resolved TRIGGER FINGER [M65.30] INVALID FOR* More... Essential hypertension [I10] INVALID FOR* More... Esophageal reflux [K21.9] INVALID FOR*01/31/2013 More... ALLERGIC RHINITIS NOS [J30.9] INVALID FOR* PERS HX OF DISEASES NEC [V13.8] INVALID FOR* More... TENOSYNOV HAND/WRIST NEC [M65.849, M65.839] INVALID FOR* JOINT CONTRACTURE-HAND [M24.549] INVALID FOR* CORONARY ATHEROSCLER UNSPEC VESSEL [I25.10] INVALID FOR* More... 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 Acute back pain with sciatica [M54.40] INVALID FOR* More... 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 Prescriptions ordered this encounter Disp Refills Start End DICLOFENAC EPOLAMINE 1.3 % TRANSDERM* 30 P* 5 02/16/2018 Sig: Apply 1 application to affected area. On for 12 hours at a time Medications Discontinued During This Encounter diclofenac (FLECTOR) 1.3 % topical p* 30 P* 5 09/30/2016 02/16/2018 Sig: Apply 1 application to affected area. On for 12 hours at a time Disc: Reason for discontinue is not on file. Encounter Status:Closed by ABRAHAN GALVAN MD on 03/02/18 PROGRESS Observed: 01/27/2018 Status: COMPLETED Source: [place] 2:17 PM [facility] RE[facility] O ID: [id number] Author: Charla Olivas Service: (none) Author Type: Nurse Practitioner Type: Progress Notes Filed: 01/27/2018 2:43 PM Note Text: Subjective The history is provided by the patient. No taxation accountant was used. HPI Tori Lord is a 67 year old female who presents today for CC of vulvar pain. This started over the past few days. She is also having lesions. Symptoms are worsened by nothing She has tried no treatment or medications. Risk factors none PMH HSV There were no vitals taken for this visit. ALLERGIES Allergen Reactions - Bentyl [Dicyclomine] Mental Status Change difficulty thinking Caused her to take extra insulin because did not remember taking it - Byetta [Exenatide] GI Upset - Cyclobenzaprine Other: See Comments Vaginal itich - Doxycycline Vomiting - Metformin GI Upset - Neurontin [Gabapent* Intolerance bad dreams - Nsaids (Non-Steroid* GI Upset Avoids all NSAIDs because upsets her stomach ACTIVE PROBLEM LIST Trigger Finger (Acquired) Essential Hypertension Allergic Rhinitis, Cause Unspecified Hx of Diseases NEC Other Tenosynovitis of Hand and Wrist Contracture of Hand Joint Coronary Atherosclerosis of Unspecified Type of Vessel, [place] Or Graft Pure Hypercholesterolemia Postherpetic Neuralgia Thyromegaly Displacement of Cervical Intervertebral Disc Without Myelopathy Cervicalgia Chronic Low Back Pain Degenerative Arthritis of Thumb Mild nonproliferative diabetic retinopathy (HCC) Glaucoma Suspect 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) Trigger Middle Finger of Left Hand Diabetic Nephropathy Associated With Type 2 Diabetes Mellitus (Hcc) Acute Back Pain With Sciatica Chronic Hepatitis C Without Hepatic Coma (Hcc) Family History Problem Relation Age of Onset - Heart Mother - Cancer Brother prostate cancer - htn [OTHER] Sister - Diabetes Brother Social History Marital status: Spouse name: Years of education: Number of children: 2 Social History Main Topics Smoking status: Former Smoker Packs/day: 0.50 Years: 10.00 Types: Cigarettes Quit date: 07/11/1999 Smokeless tobacco: Never Used Alcohol use: No Drug use: No Sexual activity: No Review of Systems Constitutional: Negative for chills, fever and malaise/fatigue. Genitourinary: Negative for dysuria, flank pain, frequency, hematuria and urgency. Vulvar lesion Skin: Negative for rash. Neurological: Negative for headaches. Objective Physical Exam Constitutional: She is oriented to person, place, and time and well-developed, well-nourished, and in no distress. HENT: Head: Normocephalic and atraumatic. Eyes: Conjunctivae and EOM are normal. Pupils are equal, round, and reactive to light. Neck: Normal range of motion. Neck supple. Pulmonary/Chest: Effort normal. Abdominal: Soft. There is no hepatosplenomegaly. There is no tenderness. There is no rigidity, no rebound, no guarding and no CVA tenderness. Genitourinary: Vulva exhibits lesion (ulcerative, on right labia). Lymphadenopathy: Right: Inguinal adenopathy present. Neurological: She is alert and oriented to person, place, and time. Skin: Skin is warm. Psychiatric: Affect normal. Nursing note and vitals reviewed. ASSESSMENT/PLAN: 1. Vulval lesion - ICD9: 624.8, ICD10: N90.89 - appears to be HSV lesion Apply ointment to area twice a day as needed May use vaseline to area for comfort Valtrex 1 tablet twice a day for 7 days - VALACYCLOVIR 500 MG TABLET - ACYCLOVIR 5 % TOPICAL CREAM Follow up with fraud prevention analyst as needed Diagnosis and treatment plan were discussed and questions were answered to the patient's satisfaction. Pt acknowledged understanding of concepts and follow up plan. Specific signs and symptoms that would indicate the need for higher level of care were discussed in detail warranting prompt ER evaluation. Charla Olivas APRN.CNP CNOV Observed: 01/27/2018 Status: COMPLETED Source: [place] 2:15 PM [facility] REPOSITORY Office Visit (WSTR) TORI LORD ([id number]) 1950 F Date Time Provider Department 01/27/18 2:15 PM CHARLA OLIVAS (LEVI) WSTR During your visit today, we recorded the following information about you: Temperature Pulse Respiration Blood pressure 98.6 degrees 64/minute 16/minute 132/80 Weight 80.9 kg Charla Olivas APRN.CNP 01/27/2018 2:43 PM Signed Subjective The history is provided by the patient. No taxation accountant was used. HPI Tori Champagneiott is a 67 year old female who presents today for CC of vulvar pain. This started over the past few days. She is also having lesions. Symptoms are worsened by nothing She has tried no treatment or medications. Risk factors none PMH HSV There were no vitals taken for this visit. ALLERGIES Allergen Reactions - Bentyl [Dicyclomine] Mental Status Change difficulty thinking Caused her to take extra insulin because did not remember taking it - Byetta [Exenatide] GI Upset - Cyclobenzaprine Other: See Comments Vaginal itich - Doxycycline Vomiting - Metformin GI Upset - Neurontin [Gabapent* Intolerance bad dreams - Nsaids (Non-Steroid* GI Upset Avoids all NSAIDs because upsets her stomach ACTIVE PROBLEM LIST Trigger Finger (Acquired) Essential Hypertension Allergic Rhinitis, Cause Unspecified Hx of Diseases NEC Other Tenosynovitis of Hand and Wrist Contracture of Hand Joint Coronary Atherosclerosis of Unspecified Type of Vessel, [place] Or Graft Pure Hypercholesterolemia Postherpetic Neuralgia Thyromegaly Displacement of Cervical Intervertebral Disc Without Myelopathy Cervicalgia Chronic Low Back Pain Degenerative Arthritis of Thumb Mild nonproliferative diabetic retinopathy (HCC) Glaucoma Suspect 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) Trigger Middle Finger of Left Hand Diabetic Nephropathy Associated With Type 2 Diabetes Mellitus (Hcc) Acute Back Pain With Sciatica Chronic Hepatitis C Without Hepatic Coma (Hcc) Family History Problem Relation Age of Onset - Heart Mother - Cancer Brother prostate cancer - htn [OTHER] Sister - Diabetes Brother Social History Marital status: Spouse name: Years of education: Number of children: 2 Social History Main Topics Smoking status: Former Smoker Packs/day: 0.50 Years: 10.00 Types: Cigarettes Quit date: 07/11/1999 Smokeless tobacco: Never Used Alcohol use: No Drug use: No Sexual activity: No Review of Systems Constitutional: Negative for chills, fever and malaise/fatigue. Genitourinary: Negative for dysuria, flank pain, frequency, hematuria and urgency. Vulvar lesion Skin: Negative for rash. Neurological: Negative for headaches. Objective Physical Exam Constitutional: She is oriented to person, place, and time and well-developed, well-nourished, and in no distress. HENT: Head: Normocephalic and atraumatic. Eyes: Conjunctivae and EOM are normal. Pupils are equal, round, and reactive to light. Neck: Normal range of motion. Neck supple. Pulmonary/Chest: Effort normal. Abdominal: Soft. There is no hepatosplenomegaly. There is no tenderness. There is no rigidity, no rebound, no guarding and no CVA tenderness. Genitourinary: Vulva exhibits lesion (ulcerative, on right labia). Lymphadenopathy: Right: Inguinal adenopathy present. Neurological: She is alert and oriented to person, place, and time. Skin: Skin is warm. Psychiatric: Affect normal. Nursing note and vitals reviewed. ASSESSMENT/PLAN: 1. Vulval lesion - ICD9: 624.8, ICD10: N90.89 - appears to be HSV lesion Apply ointment to area twice a day as needed May use vaseline to area for comfort Valtrex 1 tablet twice a day for 7 days - VALACYCLOVIR 500 MG TABLET - ACYCLOVIR 5 % TOPICAL CREAM Follow up with fraud prevention analyst as needed Diagnosis and treatment plan were discussed and questions were answered to the patient's satisfaction. Pt acknowledged understanding of concepts and follow up plan. Specific signs and symptoms that would indicate the need for higher level of care were discussed in detail warranting prompt ER evaluation. JESE Bennett APRN.CNP 01/27/2018 2:38 PM Signed ASSESSMENT/PLAN: 1. Vulval lesion - ICD9: 624.8, ICD10: N90.89 Apply ointment to area twice a day as needed May use vaseline to area for comfort Valtrex 1 tablet twice a day for 7 days - VALACYCLOVIR 500 MG TABLET - ACYCLOVIR 5 % TOPICAL CREAM Follow up with fraud prevention analyst as needed Referring Provider: SELF [[id number]] Allergies As of Date: 01/27/2018 Noted Allergy Reaction BENTYL (DICYCLOMINE) 12/30/2016 1 - Mental Status Change Comments: difficulty thinking Caused her to take extra insulin because did not remember taking it BYETTA (EXENATIDE) 01/03/2012 8 - GI Upset CYCLOBENZAPRINE 06/28/2011 14 - Other: See Comments Comments: Vaginal itich DOXYCYCLINE 03/22/2013 11 - Vomiting METFORMIN 03/31/2005 8 - GI Upset NEURONTIN (GABAPENTIN) 10/14/2006 5 - Intolerance Comments: bad dreams NSAIDS (NON-STEROIDAL ANTI-INFLAM*10/23/2007 8 - GI Upset Comments: Avoids all NSAIDs because upsets her stomach Date Reviewed: 01/27/2018 Reviewed by: Veronica Cummins LPN - Fully Assessed Reason for Visit: vaginal issues [Other] Cmt: x 1 week-bumps around vagina- hard to sit Primary Visit Diagnosis:Vulval lesion [N90.89] Order(s):valACYclovir (VALTREX) 500 mg tabletTake 1 tablet by mouth twice daily for 7 days.Disp: 14 tabletRfl: 0 acyclovir (ZOVIRAX) 5 % creaApply 1 application to affected area twice daily. Location: vulvarDisp: 1 TubeRfl: 0 Prescriptions as of 01/27/2018 Sig: INSULIN DETEMIR (U-100) 100 U* Inject 15 units subcutaneousl* INSULIN ASPART U-100 100 UNI* Inject 10 Units subcutaneousl* PEN NEEDLE, DIABETIC 31 GAUGE* 1 Each four times daily. AMLODIPINE 5 MG TABLET Take 1 tablet by mouth once d* TRIAMCINOLONE ACETONIDE 0.5 %* Apply 1 application to affect* SIMVASTATIN 20 MG TABLET take 1 tablet by mouth at bed* BLOOD SUGAR DIAGNOSTIC STRIPS Test blood sugar(s) 3 to 4 ti* NITROGLYCERIN 0.4 MG SUBLINGU* Dissolve 1 tablet under the t* [id number]-HZVBKMJRN-IHAIERYB 3* LISINOPRIL 20 MG TABLET Take 1 tablet by mouth twice * DICLOFENAC EPOLAMINE 1.3 % TR* Apply 1 application to affect* CICLOPIROX 8 % TOPICAL SOLUTI* Apply 1 application to affect* * FINGERSTIX LANCETS use as directed VALACYCLOVIR 500 MG TABLET Take 1 tablet by mouth twice * ACYCLOVIR 5 % TOPICAL CREAM Apply 1 application to affect* HYDROCODONE 7.5 MG-ACETAMINOP* Take 1-2 tablets by mouth onc* DIAZEPAM 5 MG TABLET Take 0.5-1 tablets by mouth o* CODEINE 10 MG-GUAIFENESIN 100* Take 5-10 mL by mouth four ti* Problem List As Of Date 01/27/2018 Noted Resolved TRIGGER FINGER [M65.30] INVALID FOR* More... Essential hypertension [I10] INVALID FOR* More... Esophageal reflux [K21.9] INVALID FOR*01/31/2013 More... ALLERGIC RHINITIS NOS [J30.9] INVALID FOR* PERS HX OF DISEASES NEC [V13.8] INVALID FOR* More... TENOSYNOV HAND/WRIST NEC [M65.849, M65.839] INVALID FOR* JOINT CONTRACTURE-HAND [M24.549] INVALID FOR* CORONARY ATHEROSCLER UNSPEC VESSEL [I25.10] INVALID FOR* More... 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 Acute back pain with sciatica [M54.40] INVALID FOR* More... 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 Other instructions from your clinician: ASSESSMENT/PLAN: 1. Vulval lesion - ICD9: 624.8, ICD10: N90.89 Apply ointment to area twice a day as needed May use vaseline to area for comfort Valtrex 1 tablet twice a day for 7 days - VALACYCLOVIR 500 MG TABLET - ACYCLOVIR 5 % TOPICAL CREAM Follow up with fraud prevention analyst as needed Prescriptions ordered this encounter Disp Refills Start End VALACYCLOVIR 500 MG TABLET 14 t* 0 01/27/2018 02/03/2018 Route: ORAL Sig: Take 1 tablet by mouth twice daily for 7 days. ACYCLOVIR 5 % TOPICAL CREAM 1 Tu* 0 01/27/2018 Route: TOPICAL Sig: Apply 1 application to affected area twice daily. Location: vulvar Encounter Status:Closed by CHARLA OLIVAS CNP on 01/27/18 PROGRESS Observed: 01/19/2018 Status: COMPLETED Source: [place] 10:00 AM [facility] REPOSITORY O ID: [id number] Author: Abrahan Galvan Service: (none) Author Type: Physician Type: Progress Notes Filed: 01/19/2018 1:18 PM Note Text: Patient presents for DM SMA with Dr. Galvan and oYli Lan, PharmD GOALS: A1c < 8% Tori Lord is a 67 year old female was last seen by PCP, Dr. Galvan on 11/17/17. At last PCP visit no DM medication changes were made. Reports has been with who was admitted to hospital, discharged yesterday Busy with him at home Has not checked BG or taken insulin Did take her morning pills Sometimes morning BGs are 200 if she has a cookie night before Otherwise her mornings are in the 140s ? Patient denies CP, SOB, JACK, blurred vision, dizziness or lightheadedness ? Patient denies symptoms of hypoglycemia (sweating, anxiety, palpitations, hunger, and tremor) ? Patient denies symptoms hyperglycemia (polyuria, polydipsia) ? Patient denies potential medication adverse effects DIET/EXERCISE/SOCIAL Hx: ? Will have a glucerna if she hasn't eaten in the morning ALLERGIES Allergen Reactions - Bentyl [Dicyclomine] Mental Status Change difficulty thinking Caused her to take extra insulin because did not remember taking it - Byetta [Exenatide] GI Upset - Cyclobenzaprine Other: See Comments Vaginal itich - Doxycycline Vomiting - Metformin GI Upset - Neurontin [Gabapent* Intolerance bad dreams - Nsaids (Non-Steroid* GI Upset Avoids all NSAIDs because upsets her stomach PAST MEDICAL HISTORY Diagnosis Date - Allergic rhinitis, cause unspecified 03/31/2005 - Chronic hepatitis C without hepatic coma (HCC) 03/27/2017 failed to respond to treatment started March 2016; Genotype 2; based on history-- from blood transfusion - Coronary atherosclerosis of unspecified type of vessel, [place] or graft 12/12/2006 50% lesion in LAD as seen on heart cath 11/29/2006 - Esophageal reflux - Glaucoma 07/29/10 chronic angle closure glaucoma (treated by Dr. 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 as needed.Earliest Fill Date: 11/17/17 triamcinolone acetonide (KENALOG) 0.5 % cream Apply 1 application to affected area twice daily. For rash/itching. Apply sparingly. Avoid face/skin fold. diazePAM (VALIUM) 5 mg tablet Take 0.5-1 tablets by mouth once daily as needed for up to 30 days. simvastatin (ZOCOR) 20 mg tablet take 1 tablet by mouth at bedtime blood sugar diagnostic (BLOOD GLUCOSE TEST) test strip Test blood sugar(s) 3 to 4 times daily as directed. Dx: Type 2 DM - Uncontrolled E11.65 Insulin: Yes nitroglycerin sublingual (NITROQUICK) 0.4 mg SL tablet Dissolve 1 tablet under the tongue as needed. DISSOLVE ON TONGUE FOR CHEST PAIN. IF NO PAIN RELIEF, CALL 911 [id number] 3.5 MG/ML-10,000 UNIT/ML-0.1% EYE DROPS lisinopril (ZESTRIL, PRINIVIL) 20 mg tablet Take 1 tablet by mouth twice daily. insulin detemir (LEVEMIR FLEXTOUCH) 100 unit/mL (3 mL) inpn injection Inject 15 units subcutaneously every morning;inject 10 units subcutaneously every evening. Adjust as directed insulin aspart (NOVOLOG) 100 unit/mL inpn Take 10 units with meals as directed (east 2 to 3 meals per day). Adjust as directed. diclofenac (FLECTOR) 1.3 % topical patch Apply 1 application to affected area. On for 12 hours at a time codeine-guaiFENesin (ROBITUSSIN AC) 10-100 mg/5 mL syrup Take 5-10 mL by mouth four times daily as needed for Cough. May cause drowsiness. blood sugar diagnostic (HandupTOUCH ULTRA TEST) test strip Test blood sugar(s) 4 times daily. Dx: Type 2 DM - Uncontrolled E11.65 Insulin: Yes insulin needles, DISPOSABLE, (PEN NEEDLE) 31 gauge x 5/16 ndle 1 Each four times daily. Ciclopirox (LOPROX) 8 % solution Apply 1 application to affected area daily at bedtime. Lancets (FINGERSTIX LANCETS) [facility] use as directed No current facility-administered medications for this visit. GLYCEMIC CONTROL: ? SMBG?s: staying mostly between 100-200, a couple lows, she takes a quick sugar and then eats VITALS: BP 198/88 Pulse 78 Resp 20 Last 3 Encounter BP Readings: Date: BP: 10/18/2017 150/88 09/01/2017 134/88 08/04/2017 187/84 Wt: 79.4 kg (175 lb) BMI: 33.07 kg/(m2) LABS Lab Results Component Value Date HBA1C 8.0 01/17/2018 HBA1C 8.0 09/08/2017 HBA1C 9.4 06/06/2017 CMP: Glucose 124 09/08/2017 BUN 16 09/08/2017 Creatinine 1.03 09/08/2017 Sodium 144 09/08/2017 Potassium 4.5 09/08/2017 Chloride 105 09/08/2017 CO2 29 09/08/2017 Protein, Total 6.9 09/08/2017 Albumin 3.8 09/08/2017 Calcium 8.8 09/08/2017 Alkaline Phosphatase 58 09/08/2017 Bilirubin, Total 0.5 09/08/2017 AST 18 09/08/2017 ALT 14 09/08/2017 Estimated Creatinine Clearance: 49.8 mL/min (A) (based on SCr of 1.03 mg/dL (H)). Last Lipid Panel Lab Results Component Value Date CHOL 184 09/08/2017 Lab Results Component Value Date HDL 57 09/08/2017 Lab Results Component Value Date LDL 113 09/08/2017 Lab Results Component Value Date TG 70 09/08/2017 Albumin/Creat Ratio (mg/g) Date Value 09/08/2017 1,507 (H) ASSESSMENT/PLAN: 1. 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 - Continue current medications - Check HgA1C and BMP - Blood glucose monitoring on a twice a day schedule - PEN NEEDLE, DIABETIC 31 GAUGE X 5/16 - INSULIN DETEMIR (U-100) 100 UNIT/ML (3 ML) SUBCUTANEOUS PEN - INSULIN ASPART U - BASIC METABOLIC PNL - HGB A1C 2. Essential hypertension - ICD9: 401.9, ICD10: I10 - poor control - Add amlodipine (Norvasc) - Goal of BP <140/90 - AMLODIPINE 5MG TABLET ONCE DAILY Patient is scheduled to see PCP [facility] in 1 month. Patient to return to clinic for PharmD f/u at [facility]. Patient verbalized understanding of instructions. Dr. Galvan and Yoli Lan, PharmD Patient only one who showed up for [facility], but met with both of us since have been co-managing her DM. The patient was seen; chart reviewed and I concur with the above evaluation and plan. PharmD and I discussed with patient her medications for management of DM andHTN. Discussed management of hypoglycemia. We can decrease insulin if starts having too frequent of lows. Monitor high BP symptoms. Discussed that can contribute to vision issues. Follows with eye doctor routinely given DM/glaucoma issues, etc. The majority of the visit was spent counseling and/or coordinating care for the patient. Lfkr-zy-yymh time was at least 25 minutes. Abrahan Galvan MD CNOV Observed: 01/19/2018 Status: COMPLETED Source: [place] 10:00 AM [facility] REPOSITORY Office Visit (INTMWS) TORI LORD ([id number]) 1950 F Date Time Provider Department 01/19/18 10:00 AM ABRAHAN GALVAN INTMWS During your visit today, we recorded the following information about you: Pulse Respiration Blood pressure 78/minute 20/minute 201/86 Abrahan Galvan MD 01/19/2018 1:18 PM Signed Patient presents for DM SMA with Dr. Galvan and Yoli Lan, PharmD GOALS: A1c < 8% Tori Lord is a 67 year old female was last seen by PCP, Dr. Galvan on 11/17/17. At last PCP visit no DM medication changes were made. Reports has been with who was admitted to hospital, discharged yesterday Busy with him at home Has not checked BG or taken insulin Did take her morning pills Sometimes morning BGs are 200 if she has a cookie night before Otherwise her mornings are in the 140s ? Patient denies CP, SOB, JACK, blurred vision, dizziness or lightheadedness ? Patient denies symptoms of hypoglycemia (sweating, anxiety, palpitations, hunger, and tremor) ? Patient denies symptoms hyperglycemia (polyuria, polydipsia) ? Patient denies potential medication adverse effects DIET/EXERCISE/SOCIAL Hx: ? Will have a glucerna if she hasn't eaten in the morning ALLERGIES Allergen Reactions - Bentyl [Dicyclomine] Mental Status Change difficulty thinking Caused her to take extra insulin because did not remember taking it - Byetta [Exenatide] GI Upset - Cyclobenzaprine Other: See Comments Vaginal itich - Doxycycline Vomiting - Metformin GI Upset - Neurontin [Gabapent* Intolerance bad dreams - Nsaids (Non-Steroid* GI Upset Avoids all NSAIDs because upsets her stomach PAST MEDICAL HISTORY Diagnosis Date - Allergic rhinitis, cause unspecified 03/31/2005 - Chronic hepatitis C without hepatic coma (HCC) 03/27/2017 failed to respond to treatment started March 2016; Genotype 2; based on history-- from blood transfusion - Coronary atherosclerosis of unspecified type of vessel, [place] or graft 12/12/2006 50% lesion in LAD as seen on heart cath 11/29/2006 - Esophageal reflux - Glaucoma 07/29/10 chronic angle closure glaucoma (treated by Dr. 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 as needed.Earliest Fill Date: 11/17/17 triamcinolone acetonide (KENALOG) 0.5 % cream Apply 1 application to affected area twice daily. For rash/itching. Apply sparingly. Avoid face/skin fold. diazePAM (VALIUM) 5 mg tablet Take 0.5-1 tablets by mouth once daily as needed for up to 30 days. simvastatin (ZOCOR) 20 mg tablet take 1 tablet by mouth at bedtime blood sugar diagnostic (BLOOD GLUCOSE TEST) test strip Test blood sugar(s) 3 to 4 times daily as directed. Dx: Type 2 DM - Uncontrolled E11.65 Insulin: Yes nitroglycerin sublingual (NITROQUICK) 0.4 mg SL tablet Dissolve 1 tablet under the tongue as needed. DISSOLVE ON TONGUE FOR CHEST PAIN. IF NO PAIN RELIEF, CALL 911 [id number] 3.5 MG/ML-10,000 UNIT/ML-0.1% EYE DROPS lisinopril (ZESTRIL, PRINIVIL) 20 mg tablet Take 1 tablet by mouth twice daily. insulin detemir (LEVEMIR FLEXTOUCH) 100 unit/mL (3 mL) inpn injection Inject 15 units subcutaneously every morning;inject 10 units subcutaneously every evening. Adjust as directed insulin aspart (NOVOLOG) 100 unit/mL inpn Take 10 units with meals as directed (dianne 2 to 3 meals per day). Adjust as directed. diclofenac (FLECTOR) 1.3 % topical patch Apply 1 application to affected area. On for 12 hours at a time codeine-guaiFENesin (ROBITUSSIN AC) 10-100 mg/5 mL syrup Take 5-10 mL by mouth four times daily as needed for Cough. May cause drowsiness. blood sugar diagnostic (ONETOUCH ULTRA TEST) test strip Test blood sugar(s) 4 times daily. Dx: Type 2 DM - Uncontrolled E11.65 Insulin: Yes insulin needles, DISPOSABLE, (PEN NEEDLE) 31 gauge x 5/16 ndle 1 Each four times daily. Ciclopirox (LOPROX) 8 % solution Apply 1 application to affected area daily at bedtime. Lancets (FINGERSTIX LANCETS) Misc Misc use as directed No current facility-administered medications for this visit. GLYCEMIC CONTROL: ? SMBG?s: staying mostly between 100-200, a couple lows, she takes a quick sugar and then eats VITALS: BP 198/88 Pulse 78 Resp 20 Last 3 Encounter BP Readings: Date: BP: 10/18/2017 150/88 09/01/2017 134/88 08/04/2017 187/84 Wt: 79.4 kg (175 lb) BMI: 33.07 kg/(m2) LABS Lab Results Component Value Date HBA1C 8.0 01/17/2018 HBA1C 8.0 09/08/2017 HBA1C 9.4 06/06/2017 CMP: Glucose 124 09/08/2017 BUN 16 09/08/2017 Creatinine 1.03 09/08/2017 Sodium 144 09/08/2017 Potassium 4.5 09/08/2017 Chloride 105 09/08/2017 CO2 29 09/08/2017 Protein, Total 6.9 09/08/2017 Albumin 3.8 09/08/2017 Calcium 8.8 09/08/2017 Alkaline Phosphatase 58 09/08/2017 Bilirubin, Total 0.5 09/08/2017 AST 18 09/08/2017 ALT 14 09/08/2017 Estimated Creatinine Clearance: 49.8 mL/min (A) (based on SCr of 1.03 mg/dL (H)). Last Lipid Panel Lab Results Component Value Date CHOL 184 09/08/2017 Lab Results Component Value Date HDL 57 09/08/2017 Lab Results Component Value Date LDL 113 09/08/2017 Lab Results Component Value Date TG 70 09/08/2017 Albumin/Creat Ratio (mg/g) Date Value 09/08/2017 1,507 (H) ASSESSMENT/PLAN: 1. 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 - Continue current medications - Check HgA1C and BMP - Blood glucose monitoring on a twice a day schedule - PEN NEEDLE, DIABETIC 31 GAUGE X 5/16 - INSULIN DETEMIR (U-100) 100 UNIT/ML (3 ML) SUBCUTANEOUS PEN - INSULIN ASPART U - BASIC METABOLIC PNL - HGB A1C 2. Essential hypertension - ICD9: 401.9, ICD10: I10 - poor control - Add amlodipine (Norvasc) - Goal of BP <140/90 - AMLODIPINE 5MG TABLET ONCE DAILY Patient is scheduled to see PCP [facility] in 1 month. Patient to return to clinic for PharmD f/u at [facility]. Patient verbalized understanding of instructions. Dr. Galvan and Yoli Lan, PharmD Patient only one who showed up for [facility], but met with both of us since have been co-managing her DM. The patient was seen; chart reviewed and I concur with the above evaluation and plan. PharmD and I discussed with patient her medications for management of DM andHTN. Discussed management of hypoglycemia. We can decrease insulin if starts having too frequent of lows. Monitor high BP symptoms. Discussed that can contribute to vision issues. Follows with eye doctor routinely given DM/glaucoma issues, etc. The majority of the visit was spent counseling and/or coordinating care for the patient. Yhqf-ok-mwbw time was at least 25 minutes. Abrahan Galvan MD Referring Provider: MANDO DAVENPORT ([facility]) [[id number]] Allergies As of Date: 01/19/2018 Noted Allergy Reaction BENTYL (DICYCLOMINE) 12/30/2016 1 - Mental Status Change Comments: difficulty thinking Caused her to take extra insulin because did not remember taking it BYETTA (EXENATIDE) 01/03/2012 8 - GI Upset CYCLOBENZAPRINE 06/28/2011 14 - Other: See Comments Comments: Vaginal itich DOXYCYCLINE 03/22/2013 11 - Vomiting METFORMIN 03/31/2005 8 - GI Upset NEURONTIN (GABAPENTIN) 10/14/2006 5 - Intolerance Comments: bad dreams NSAIDS (NON-STEROIDAL ANTI-INFLAM*10/23/2007 8 - GI Upset Comments: Avoids all NSAIDs because upsets her stomach Date Reviewed: 12/08/2017 Reviewed by: Roseanna Mahoney Ma - Fully Assessed Reason for Visit: DM SMA [Other] Cmt: Diabetes Reason For Visit History Recorded Primary Visit Diagnosis: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 Adjust as directedDisp: 5 PenRfl: 5 insulin aspart U-100 (NOVOLOG FLEXPEN U-100 INSULIN) 100 unit/mL inpnInject 10 Units subcutaneously three times daily before meals.Disp: 5 PenRfl: 5 insulin needles, DISPOSABLE, (PEN NEEDLE) 31 gauge x 5/16 ndle1 Each four times daily.Disp: 100 EachRfl: 11 BASIC METABOLIC PNL [SQBMP] Order #: [id number] FUTURE HGB A1C [KRTIE4I] Order #: [id number] FUTURE amLODIPine (NORVASC) 5 mg tabletTake 1 tablet by mouth once daily.Disp: 30 tabletRfl: 5 Prescriptions as of 01/19/2018 Sig: INSULIN DETEMIR (U-100) 100 U* Inject 15 units subcutaneousl* LISINOPRIL 20 MG TABLET Take 1 tablet by mouth twice * INSULIN ASPART U-100 100 UNI* Inject 10 Units subcutaneousl* PEN NEEDLE, DIABETIC 31 GAUGE* 1 Each four times daily. AMLODIPINE 5 MG TABLET Take 1 tablet by mouth once d* HYDROCODONE 7.5 MG-ACETAMINOP* Take 1-2 tablets by mouth onc* TRIAMCINOLONE ACETONIDE 0.5 %* Apply 1 application to affect* DIAZEPAM 5 MG TABLET Take 0.5-1 tablets by mouth o* SIMVASTATIN 20 MG TABLET take 1 tablet by mouth at bed* BLOOD SUGAR DIAGNOSTIC STRIPS Test blood sugar(s) 3 to 4 ti* NITROGLYCERIN 0.4 MG SUBLINGU* Dissolve 1 tablet under the t* [id number] 3* DICLOFENAC EPOLAMINE 1.3 % TR* Apply 1 application to affect* CODEINE 10 MG-GUAIFENESIN 100* Take 5-10 mL by mouth four ti* CICLOPIROX 8 % TOPICAL SOLUTI* Apply 1 application to affect* * FINGERSTIX LANCETS use as directed Problem List As Of Date 01/19/2018 Noted Resolved TRIGGER FINGER [M65.30] INVALID FOR* More... Essential hypertension [I10] INVALID FOR* More... Esophageal reflux [K21.9] INVALID FOR*01/31/2013 More... ALLERGIC RHINITIS NOS [J30.9] INVALID FOR* PERS HX OF DISEASES NEC [V13.8] INVALID FOR* More... TENOSYNOV HAND/WRIST NEC [M65.849, M65.839] INVALID FOR* JOINT CONTRACTURE-HAND [M24.549] INVALID FOR* CORONARY ATHEROSCLER UNSPEC VESSEL [I25.10] INVALID FOR* More... 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 Acute back pain with sciatica [M54.40] INVALID FOR* More... 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 Prescriptions ordered this encounter Disp Refills Start End INSULIN DETEMIR (U-100) 100 UNIT/ML * 5 Pen 5 01/19/2018 Sig: Inject 15 units subcutaneously every morning;inject 10 units subcutaneously every evening. Adjust as directed INSULIN ASPART U-100 100 UNIT/ML MINER* 5 Pen 5 01/19/2018 Route: SUBCUTANEOUS Sig: Inject 10 Units subcutaneously three times daily before meals. PEN NEEDLE, DIABETIC 31 GAUGE X 5/16 100 * 11 01/19/2018 Route: Misc Si Each four times daily. AMLODIPINE 5 MG TABLET 30 t* 5 01/19/2018 Route: ORAL Sig: Take 1 tablet by mouth once daily. Medications Discontinued During This Encounter insulin aspart (NOVOLOG) 100 unit/mL* 5 Pen 11 12/30/2016 01/19/2018 Sig: Take 10 units with meals as directed (east 2 to 3 meals per day). Adjust as directed. Disc: Reason for discontinue is not on file. blood sugar diagnostic (ONETOUCH ULT* 100 * 11 05/31/2016 01/19/2018 Sig: Test blood sugar(s) 4 times daily. Dx: Type 2 DM - Uncontrolled E11.65 Insulin: Yes Disc: Duplicate Entry insulin detemir (LEVEMIR FLEXTOUCH) * 04/07/2017 01/19/2018 Class: Med Update Sig: Inject 15 units subcutaneously every morning;inject 10 units subcutaneously every evening. Adjust as directed Disc: Reason for discontinue is not on file. insulin needles, DISPOSABLE, (PEN NE* 100 * 11 02/17/2016 01/19/2018 Route: Miscell. (Med.Supl.;Non-Drugs) Si Each four times daily. Disc: Reason for discontinue is not on file. Disposition: Return for 1 month for DM SMA; Keep Apr 10 with PCP. Follow-up and Disposition History Recorded Encounter Status:Closed by ABRAHAN GALVAN MD on 01/19/18 HEMOGLOBIN A1C Collected: 01/17/2018 Status: F Source: [place] 10:36 AM [facility] REPOSITORY TYPE CODE TESTS RESULT OUT OF REFERENCE UNITS RANGE LAB HGBA1C 4.3-5.6 % High Hemoglobin A1c 8.0 LAB HBA0 mg/dL Est. Average Glucose 183 Result Comment: eAG: (Estimated average glucose) is a calculated value from HgbA1c and is accounting representative of the average blood glucose level in the last 2-3 month period. Performed By: #### HBA1C #### [facility] [address] [place], [place] [address] CNPTOUTREACH Observed: 01/03/2018 Status: COMPLETED Source: [place] 12:00 AM [facility] REPOSITORY Patient Outreach (FAMPST) TORI LORD ([id number]) 1950 F Date Time Provider Department 01/03/18 ABRAHAN GALVAN FAMPST During your visit today, we recorded the following information about you: Allergies As of Date: 01/03/2018 Noted Allergy Reaction BENTYL (DICYCLOMINE) 12/30/2016 1 - Mental Status Change Comments: difficulty thinking Caused her to take extra insulin because did not remember taking it BYETTA (EXENATIDE) 01/03/2012 8 - GI Upset CYCLOBENZAPRINE 06/28/2011 14 - Other: See Comments Comments: Vaginal itich DOXYCYCLINE 03/22/2013 11 - Vomiting METFORMIN 03/31/2005 8 - GI Upset NEURONTIN (GABAPENTIN) 10/14/2006 5 - Intolerance Comments: bad dreams NSAIDS (NON-STEROIDAL ANTI-INFLAM*10/23/2007 8 - GI Upset Comments: Avoids all NSAIDs because upsets her stomach Date Reviewed: 12/08/2017 Reviewed by: Roseanna Mahoney Ma - Fully Assessed Visit Diagnosis:Medication management [Z79.899] Order(s):HGB A1C [XYQBK4A] Order #: [id number] FUTURE Prescriptions as of 01/03/2018 Sig: TRIAMCINOLONE ACETONIDE 0.5 %* Apply 1 application to affect* X HYDROCODONE 7.5 MG-ACETAMINOP* Take 1-2 tablets by mouth onc* X DIAZEPAM 5 MG TABLET Take 0.5-1 tablets by mouth o* SIMVASTATIN 20 MG TABLET take 1 tablet by mouth at bed* BLOOD SUGAR DIAGNOSTIC STRIPS Test blood sugar(s) 3 to 4 ti* NITROGLYCERIN 0.4 MG SUBLINGU* Dissolve 1 tablet under the t* [id number] 3* LISINOPRIL 20 MG TABLET Take 1 tablet by mouth twice * X INSULIN DETEMIR (U-100) 100 U* Inject 15 units subcutaneousl* X INSULIN ASPART U-100 100 UNI* Take 10 units with meals as d* X DICLOFENAC EPOLAMINE 1.3 % TR* Apply 1 application to affect* CODEINE 10 MG-GUAIFENESIN 100* Take 5-10 mL by mouth four ti* X BLOOD SUGAR DIAGNOSTIC STRIPS Test blood sugar(s) 4 times d* X PEN NEEDLE, DIABETIC 31 GAUGE* 1 Each four times daily. CICLOPIROX 8 % TOPICAL SOLUTI* Apply 1 application to affect* * FINGERSTIX LANCETS use as directed Problem List As Of Date 01/03/2018 Noted Resolved TRIGGER FINGER [M65.30] INVALID FOR* More... Essential hypertension [I10] INVALID FOR* More... Esophageal reflux [K21.9] INVALID FOR*01/31/2013 More... ALLERGIC RHINITIS NOS [J30.9] INVALID FOR* PERS HX OF DISEASES NEC [V13.8] INVALID FOR* More... TENOSYNOV HAND/WRIST NEC [M65.849, M65.839] INVALID FOR* JOINT CONTRACTURE-HAND [M24.549] INVALID FOR* CORONARY ATHEROSCLER UNSPEC VESSEL [I25.10] INVALID FOR* More... 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 Acute back pain with sciatica [M54.40] INVALID FOR* More... 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 Encounter Status:Closed by LEONARD PRODUSER on 04/21/18 PROGRESS Observed: 12/09/2017 Status: COMPLETED Source: [place] 10:40 AM [facility] REPOSITORY HNO ID: [id number] Author: Opal (Rt) Mateus Mullen Service: (none) Author Type: Designer Architect Type: Progress Notes Filed: 12/09/2017 10:41 AM Note Text: Radiology Service Progress Note PATIENT NAME: Tori Lord DATE OF SERVICE: December 09, 2017 TIME: 10:40 AM PATIENT IDENTITY VERIFICATION COMPLETED USING TWO (2) METHODS: Patient confirmed name verbally and Date of . PATIENT GENDER DATA: Female. status: : No status: NO. PATIENT RELEVANT IMPLANT DATA REVIEWED: Not Applicable RADIOLOGY DEPARTMENT: General X-ray: Exam(s) Completed: Lower Extremity X-Ray(s): Ankle, Right and Wt. Bearing: PERIPHERAL IV DATA: Not applicable SIGNED BY: RT Solitario December 09, 2017 10:40 AM XR ANKLE 3V AP/LAT/OBL Observed: 12/09/2017 Status: F Source: [facility] 10:32 AM [facility] REPOSITORY * * *Final Report* * * DATE OF EXAM: Dec 09 2017 10:32AM [id number] [id number] - XR ANKLE 3V AP/LAT/OBL RT / PROCEDURE REASON: Sprain of other ligament of right ankle, initial encounter * * * * Physician Interpretation * * * * CLINICAL:..... Sprain of other ligament of right ankle, initial encounter TECHNIQUE: AP lateral and oblique views of the right ankle FINDINGS: There is no evidence of acute fracture, subluxation or dislocation seen. The soft tissues demonstrate soft tissue swelling over lateral malleolus and the medial malleolus.. No foreign bodies are identified. Narrowing is also seen at the talonavicular joint on the lateral view. A small plantar and posterior calcaneal enthesophyte is present. IMPRESSION: Minimal degenerative change otherwise no acute traumatic abnormality. Delivery Stock Clerk: PSCB Transcribe Date/Time: Dec 11 2017 1:59P Dictated by : ELIAS SOUZA MD This examination was interpreted and the report reviewed and electronically signed by: ELISA SOUZA MD on Dec 11 2017 2:00PM EST [id number] Observed: 12/08/2017 Status: COMPLETED Source: [place] 2:41 PM [facility] [place] REPOSITORY HNO ID: [id number] Author: Nikki Mata RN Service: (none) Author Type: (none) Type: Progress Notes Filed: 12/08/2017 10:37 PM Note Text: Per Dr. David, Tori has been provided with an aircast boot, size medium, and instructed/educated in its application, wear, and care. All questions were answered, and patient was able to demonstrate competence with the necessary skills to utilize the above equipment. April PPA signed by patient. Boot billed to April. Nikki Mata RN PROGRESS Observed: 12/08/2017 Status: COMPLETED Source: [place] 12:55 PM [facility] [place] REPOSITORY HNO ID: [id number] Author: El David Service: (none) Author Type: Physician Type: Progress Notes Filed: 12/13/2017 10:40 PM Note Text: El David DPM Department of Podiatry [address] [facility] [address] Dept: [phone] Dept Diabetic Nail Care SUBJECTIVE: Follow up office visit: This 67 year old female presents to clinic c/o painful toenails. Patient states that the nails are especially painful with shoe gear and pressure. Patient reports that in september, she rolled her ankle. She went to ed and had xrays that were apparently negative but she continues to complain of pain and difficulty walking. Patient denies claudication type symptoms when walking. Patient reports tender R ankle, was seen in ED in September for fall. OBJECTIVE: Patient presents to clinic ambulating in diabetic shoes. Vasc: DP and PT pulses are palpable bilateral. CFT is less than 5 seconds bilateral. Skin temperature is warm to warm proximal to distal bilateral. There is mild edema to right ankle. Hair growth present. Neuro: Protective sensation is absent to the foot and toes when tested with the 5.07 SWM bilateral. Vibratory sensation is absent at the hallux bilateral. significant neurological defecits. Derm: Inspection and palpation performed. Nails 2-5 b/l are painful, discolored-yellow, thick, crumbly, dystrophic and with subungal debris. Skin is dry and scaly b/l. Hyperkeratosis to b/l hallux.. NO ulcerations, scars, verruca or other lesions noted. Ortho: Ankle joint DF is decreased with the knee extended and decreased with knee flexed. No pain or crepitus noted. STJ, MTJ ROM are full and free of pain or crepitus. Muscle strength is 5/5 for dorsiflexors, plantarflexors, inverters, everters. There is swelling to right ankle with pain to lateral aspect of right ankle. No laxity with anterior drawer ASSESSMENT: (B35.1) Onychomycosis (primary encounter diagnosis) (M79.675) Pain in toe of left foot (M79.674) Pain in toe of right foot (L85.3) Xerosis cutis (E11.42) Diabetic polyneuropathy associated with type 2 diabetes mellitus (HCC) (S93.601A) Sprain of anterior talofibular ligament of right ankle, initial encounter Plan: Patient was seen and evaluated. Nails 1-5 bilateral were debrided in length and thickness. Callus to b/l hallux debrided with sanding disk as courtesy. Recommend lotion to feet due to dryness Discussed right ankle pain. Will repeat xrays. Discussed therapy vs boot immoblization. Patient feels pain is too severe at this time so will try boot. If no improvement in 3 weeks, consider mri. Patient was instructed on the continued importance of diabetic foot care along with proper diet and keeping their blood sugar under control to prevent complications. Patient to f/u in 3 weeks. El David DPM CNOV Observed: 12/08/2017 Status: COMPLETED Source: [place] 12:40 PM [facility] REPOSITORY Office Visit (PODIWS) TORI LORD ([id number]) 1950 F Date Time Provider Department 12/08/17 12:40 PM EL DAVID PODIWS During your visit today, we recorded the following information about you: El David DPM 12/13/2017 10:40 PM Addendum El David DPM Department of Podiatry [address] [facility] [address] Dept: [phone] Dept Diabetic Nail Care SUBJECTIVE: Follow up office visit: This 67 year old female presents to clinic c/o painful toenails. Patient states that the nails are especially painful with shoe gear and pressure. Patient reports that in september, she rolled her ankle. She went to ed and had xrays that were apparently negative but she continues to complain of pain and difficulty walking. Patient denies claudication type symptoms when walking. Patient reports tender R ankle, was seen in ED in September for fall. OBJECTIVE: Patient presents to clinic ambulating in diabetic shoes. Vasc: DP and PT pulses are palpable bilateral. CFT is less than 5 seconds bilateral. Skin temperature is warm to warm proximal to distal bilateral. There is mild edema to right ankle. Hair growth present. Neuro: Protective sensation is absent to the foot and toes when tested with the 5.07 SWM bilateral. Vibratory sensation is absent at the hallux bilateral. significant neurological defecits. Derm: Inspection and palpation performed. Nails 2-5 b/l are painful, discolored-yellow, thick, crumbly, dystrophic and with subungal debris. Skin is dry and scaly b/l. Hyperkeratosis to b/l hallux.. NO ulcerations, scars, verruca or other lesions noted. Ortho: Ankle joint DF is decreased with the knee extended and decreased with knee flexed. No pain or crepitus noted. STJ, MTJ ROM are full and free of pain or crepitus. Muscle strength is 5/5 for dorsiflexors, plantarflexors, inverters, everters. There is swelling to right ankle with pain to lateral aspect of right ankle. No laxity with anterior drawer ASSESSMENT: (B35.1) Onychomycosis (primary encounter diagnosis) (M79.675) Pain in toe of left foot (M79.674) Pain in toe of right foot (L85.3) Xerosis cutis (E11.42) Diabetic polyneuropathy associated with type 2 diabetes mellitus (HCC) (S93.281A) Sprain of anterior talofibular ligament of right ankle, initial encounter Plan: Patient was seen and evaluated. Nails 1-5 bilateral were debrided in length and thickness. Callus to b/l hallux debrided with sanding disk as courtesy. Recommend lotion to feet due to dryness Discussed right ankle pain. Will repeat xrays. Discussed therapy vs boot immoblization. Patient feels pain is too severe at this time so will try boot. If no improvement in 3 weeks, consider mri. Patient was instructed on the continued importance of diabetic foot care along with proper diet and keeping their blood sugar under control to prevent complications. Patient to f/u in 3 weeks. NHUNG Sanchez RN 12/08/2017 1:43 PM Signed Xray today You have been placed in a walking boot. You are to remain weightbearing in the boot. When immobilized for a period of time your risk for deep venous thrombosis (blood clot in the leg) is elevated. I want you to take your leg out of the boot every hour or so and move the ankle up and down as well as massage the calf muscles. If you experience any leg swelling or pain in the leg, increased temperature you should let our office know right away. If you have chest pain or shortness of breath you should go to the Emergency Department right away as this can be a sign of a much more serious problem. Nikki Mata RN 12/08/2017 10:37 PM Signed Per Vasile Gonzalezothy has been provided with an aircast boot, size medium, and instructed/educated in its application, wear, and care. All questions were answered, and patient was able to demonstrate competence with the necessary skills to utilize the above equipment. April HOGAN signed by patient. Boot billed to April. Nikki Mata RN Referring Provider: EL DAVID [[id number]] Allergies As of Date: 12/08/2017 Noted Allergy Reaction BENTYL (DICYCLOMINE) 12/30/2016 1 - Mental Status Change Comments: difficulty thinking Caused her to take extra insulin because did not remember taking it BYETTA (EXENATIDE) 01/03/2012 8 - GI Upset CYCLOBENZAPRINE 06/28/2011 14 - Other: See Comments Comments: Vaginal itich DOXYCYCLINE 03/22/2013 11 - Vomiting METFORMIN 03/31/2005 8 - GI Upset NEURONTIN (GABAPENTIN) 10/14/2006 5 - Intolerance Comments: bad dreams NSAIDS (NON-STEROIDAL ANTI-INFLAM*10/23/2007 8 - GI Upset Comments: Avoids all NSAIDs because upsets her stomach Date Reviewed: 12/08/2017 Reviewed by: Roseanna Mahoney Ma - Fully Assessed Reason for Visit: nail care [Other] Primary Visit Diagnosis:Onychomycosis [B35.1] Other Visit Diagnoses:Pain in toe of left foot [M79.675] Pain in toe of right foot [M79.674] Xerosis cutis [L85.3] Diabetic polyneuropathy associated with type 2 diabetes mellitus (HCC) [E11.42] Sprain of anterior talofibular ligament of right ankle, initial encounter [V61.129Q] Order(s):XR ANKLE GENERAL 3V AP/LAT/OBL RT [[id number]] Order #: [id number] FUTURE Prescriptions as of 12/08/2017 Sig: HYDROCODONE 7.5 MG-ACETAMINOP* Take 1-2 tablets by mouth onc* TRIAMCINOLONE ACETONIDE 0.5 %* Apply 1 application to affect* DIAZEPAM 5 MG TABLET Take 0.5-1 tablets by mouth o* SIMVASTATIN 20 MG TABLET take 1 tablet by mouth at bed* BLOOD SUGAR DIAGNOSTIC STRIPS Test blood sugar(s) 3 to 4 ti* NITROGLYCERIN 0.4 MG SUBLINGU* Dissolve 1 tablet under the t* VAGKDJYQ-PGUHUVCED-MIGUIEBE 3* LISINOPRIL 20 MG TABLET Take 1 tablet by mouth twice * INSULIN DETEMIR (U-100) 100 U* Inject 15 units subcutaneousl* INSULIN ASPART U-100 100 UNI* Take 10 units with meals as d* DICLOFENAC EPOLAMINE 1.3 % TR* Apply 1 application to affect* CODEINE 10 MG-GUAIFENESIN 100* Take 5-10 mL by mouth four ti* BLOOD SUGAR DIAGNOSTIC STRIPS Test blood sugar(s) 4 times d* PEN NEEDLE, DIABETIC 31 GAUGE* 1 Each four times daily. CICLOPIROX 8 % TOPICAL SOLUTI* Apply 1 application to affect* * FINGERSTIX LANCETS use as directed Problem List As Of Date 12/08/2017 Noted Resolved TRIGGER FINGER [M65.30] INVALID FOR* More... Essential hypertension [I10] INVALID FOR* More... Esophageal reflux [K21.9] INVALID FOR*01/31/2013 More... ALLERGIC RHINITIS NOS [J30.9] INVALID FOR* PERS HX OF DISEASES NEC [V13.8] INVALID FOR* More... TENOSYNOV HAND/WRIST NEC [M65.849, M65.839] INVALID FOR* JOINT CONTRACTURE-HAND [M24.549] INVALID FOR* CORONARY ATHEROSCLER UNSPEC VESSEL [I25.10] INVALID FOR* More... 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 Acute back pain with sciatica [M54.40] INVALID FOR* More... 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 Other instructions from your clinician: Xray today You have been placed in a walking boot. You are to remain weightbearing in the boot. When immobilized for a period of time your risk for deep venous thrombosis (blood clot in the leg) is elevated. I want you to take your leg out of the boot every hour or so and move the ankle up and down as well as massage the calf muscles. If you experience any leg swelling or pain in the leg, increased temperature you should let our office know right away. If you have chest pain or shortness of breath you should go to the Emergency Department right away as this can be a sign of a much more serious problem. Disposition: Return in about 3 weeks (around 12/29/2017) for ankle injury. Follow-up and Disposition History Recorded Encounter Status:Closed by EL DAVID DPM on 12/08/17 ENDOCRINOLOGY VISIT Observed: 11/30/2017 Status: F Source: [place] REPORT 8:02 AM [facility] REPOSITORY [facility] [address] [place] [address] OFFICE VISIT Date of Service: 11/29/17 MR#: [id number] Acct: [id number] Name: TORI LORD Rep #: [id number] : 1950 Provider: Sheryl Lopez NP Age/Sex: 67/F Location: [facility] [place] Status: Signed HPI History of present illness History of present illness Tori Lord is a 67 year old female with diabetes type 2. Diagnosed in 1997. Continues on levemir 17 units in am and 8 units in pm. Also continues on meal insulin novolog 10 units each meal. A1c down to 7.3 in October 2017 Improved from previous 7.4 Pt denies difficulty with injections or self monitoring of BG. Denies any signs of infection or irritation at site of injections. Reports taking insulin as directed Since our last visit she denies excessive thirst, increased frequency of urination, chest pain or dyspnea. Follows a healthy diet, Is compliant with medication and is tolerating without side effects. At time of visit: -Pt denies symptoms of hypertensive emergency (CP,SOB,JACK, or blurred vision) and hypotension(dizziness or lightheadedness) -Pt denies symptoms of hypoglycemia ( sweaty, confusion, anxiety, tremor, hunger, palpitations) and hyperglycemia ( polydipsia, polyuria) -Pt denies potential medication adverse effect. Hypoglycemia Aware of hypoglycemia: yes Able to self treat low BG: Yes Frequent low Blood sugar: No Has supply of glucagon: Yes SMBG 2-4 times daily 100-160 Diet 3 meals Low sodium Does not carb count Type: type 2 Weight and fatigue symptoms: Denies snoring Cardiopulmonary symptoms: Denies chest pain at rest, dyspnea on exertion, lightheadedness or myalgias GI symptoms: Denies constipation, diarrhea, nausea/dyspepsia or vomiting Other symptoms: Reports change in vision (SWELLING BEHIND EYE HAS GONE DOWN) Self monitoring: Yes Glucometer type: one touch Dietary compliance: Diabetes: good Diabetes education in past year: Yes Glucose testing: demonstrates correct use of meter Sick day education - understands ketone testing: Yes Exam Const General: comfortable, no acute distress Nutritional Appearance: overweight Orientation: oriented x3 HENMT Head: normal to inspection, atraumatic Ears: hearing grossly normal bilaterally Mouth: oral mucosae normal, moist mucous membranes Teeth and gingiva: dentition normal Eyes General: appearance normal, both eyes and all related structures Conjunctivae: conjunctivae normal Pupils: PERRL Neck Neck: normal visual inspection, full ROM Neck mass: No Thyroid: thyroid normal Chest Chest palpation AND inspection: deferred Resp Effort AND Inspection: normal respiratory effort, able to speak in complete sentences, symmetric chest movement Auscultation: Bilateral: Clear to Auscultation Cardio Rate: regular rate Rhythm: regular rhythm Heart Sounds: S1 normal, S2 normal GI Inspection: normal to inspection Auscultation: normal bowel sounds Palpation: soft General: deferred Musc Cervical Spine: cervical ROM normal Skin General: no rashes or lesions noted Wounds: no wounds Diabetic Foot Pulses: L dorsalis pedis pulse: normal, R dorsalis pedis pulse: normal Monofilament test: Left foot: normal, Right foot: normal Neuro General: gait normal Cognition: normal cognition Speech: speech normal Gait: normal gait Extrem General: normal to inspection, full ROM Psych Appearance: well kempt Mental Status: mental status grossly normal Speech and Movement: speech and movement normal Thought Content: normal Judgment: judgment good Weight and fatigue symptoms: Denies snoring Cardiopulmonary symptoms: Denies chest pain at rest, dyspnea on exertion, lightheadedness or myalgias GI symptoms: Denies constipation, diarrhea, nausea/dyspepsia or vomiting Other symptoms: Reports blurry vision and change in vision Intake Vital Signs11/29/17 Height 5 ft 2 in 11/29/17 Weight: 174 lb 6 oz 11/29/17 Body Mass Index (BMI) 31.8 11/29/17 Blood Pressure 150/78 11/29/17 Blood Pressure Location Lt popliteal 11/29/17 Blood Pressure Position Sitting Intake Visit Reasons: Diabetes Mellitus Type 2 Nurse Discharge Planner Required: No Accompanied by: Self Is patient in pain?: No Allergies metformin Allergy (Verified 11/29/17 08:22) Unknown Medications Diazepam [Valium] 5 mg PO DAILY 04/15/16 [History Confirmed 11/29/17] Lisinopril [Zestril] 20 mg PO BID 04/15/16 [History Confirmed 11/29/17] Simvastatin [Zocor] 20 mg PO QHS 04/15/16 [History Confirmed 11/29/17] blood sugar diagnostic strips See Dose Instructions .ROUTE .MEDSUPPLY #20 ea 07/26/17 [History Confirmed 11/29/17] hydrocodone 7.5 mg-acetaminophen 300 mg tablet 1 tab PO Q6H PRN 07/26/17 [History Confirmed 11/29/17] insulin aspart U-100 100 unit/mL subcutaneous pen 10 unit SC TID ml 07/26/17 [History Confirmed 11/29/17] insulin detemir (U-100) 100 unit/mL subcutaneous solution See Label Instructions SC BID 07/26/17 [History Confirmed 11/29/17] Hydrocodone Bitart/Apap 5-325 [[place] 5/325] 1 - 2 tab PO Q4H PRN PRN 3 Days #12 tab 11/02/17 [Rx Confirmed 11/29/17] Is last menstrual period known: No Post menopausal: Yes Patient : No Nurse's Note: blood sugars : low :135 high : 150 PFSH Medical History Back problem (Acute) Corneal injury (Acute) Diabetes type 2, controlled (Acute) Hepatitis (Acute) Right wrist pain (Acute) Surgical History History of total abdominal hysterectomy (Acute) S/P colonoscopy (Acute) Family History Mother Arthritis Father Arthritis Social History Smoking Status: Never smoker second hand exposure: No alcohol intake: never substance use type: does not use ROS Const Constitutional: Positive for fatigue; no anorexia, body ache, chills, fever(s), frequent falls, decreased energy, malaise, night sweats, weakness, weight change, sleep problems, abnormal sleep pattern, change in appetite, other, headache(s), snoring or excessive sweating Eyes Eyes: Positive for blurry vision, change in vision and other (itchy eyes); no double vision, discharge, dry eyes, bulging eyes, floaters, visual disturbances, eye pain, light sensitivity, spots in vision or tunnel vision ENT ENT: No abnormal hearing, ear pain, ear discharge, ear pressure, hearing loss, tinnitus, dizziness/vertigo, balance problems, nosebleed/epistaxis, nasal congestion, nasal obstruction, nose pain, sinus pressure, sinus pain, nasal discharge, post nasal drip, headache(s), facial pain, dental pain, dry mouth, bad breath, hoarseness, lip swelling, mouth lesions, mouth pain, sore throat, tongue swelling, throat swelling, other, difficulty swallowing or neck pain Resp Respiratory: No cough, change in phlegm color, chest congestion, excessive phlegm production, hemoptysis, pain on inspiration, shortness of breath, pain with cough, snoring, stridor, wheezing or other Cardio Cardiology: Positive for generalized swelling; no chest pain at rest, chest pain with exertion, leg pain with exertion, excessive sweating, shortness of breath, dyspnea on exertion, irregular heart rhythm, lightheadedness, orthopnea, radiating jaw, neck or arm pain, fast heart rate, slow heart rate, palpitations or other Gastro GI: No abdominal pain, belching, bloating, change in bowel habits, change in stool character, coffee ground emesis, constipation, cramping, diarrhea, heartburn, difficulty swallowing, feeling full early, excessive flatus, incontinent of stools, Vomiting blood/hematemesis, blood in stool, loose stools, Black,tarry stools, nausea/dyspepsia, pain with swallowing, vomiting or other Genitourinary-Female: No difficulty urinating, burning urination, painful urination, urinary incontinence, urinary frequency, urinary urgency, urinary hesitancy, urinary retention, blood in urine, Frequent nighttime urination/ nocturia, post void dribbling, suprapubic fullness, side pain, sexual problems, genital lesions, genital itching, hot flashes, abnormal periods, abnormal vaginal bleeding, absent period, painful periods, light periods, heavy periods, difficulty getting , painful intercourse, pelvic pain, vaginal dryness, vaginal odor, Vaginal Itching or other Musc Musculoskeletal: Positive for joint pain; no abnormal walking, back pain, deformity, joint swelling, limited range of motion, loss of height, muscle cramps, muscle weakness, decreased muscle mass, body aches, neck pain, numbness, radiating pain into limb, stiffness, tingling or other Skin Skin: No acne, hair loss, change in hair, nail changes, boil, change in skin color, dry skin, redness, excessive hair growth, yellowing of the skin, lesions, itching, rash, skin pain, skin ulcer, sores, skin swelling, wounds or other Breast Breast: No other Neuro Neurology: No frequent falls, weakness, visual disturbances, abnormal hearing, headache(s), abnormal walking, numbness or tingling Psych Psychiatric: No abnormal sleep pattern, No change in appetite Endo Endocrine: Positive for fatigue; no other or excessive sweating Aller/Imm Allergy/Immunologic: No lip swelling, tongue swelling, throat swelling, wheezing or itchy eyes Assessment AND Plan Problems 1. 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 HTN (hypertension) I10 3. Mixed hyperlipidemia E78.2 Plan Detail Additional Comments 1. Please schedule follow up in 3 months. 2. Lab work one week before appointment. 3. Discussed importance of regular exercise and recommend starting or continuing a regular exercise program for good health. 4. The patient was encouraged to lose weight for good health 5. The importance of monitoring blood sugar regularly was reviewed. 6. The importance of monitoring the HBA1c level regularly was reviewed. 7. The importance of prper foot care and regularly checking feet to prevent sores and loss of limbs was reviewed. 8. The importance of keeping BP at or below 130/80 to prevent stroke, heart attacks, kidney failure, blindness was reviewed. Spent approximately 30 minutes with patient with over 50% of time spent in discussion and counseling regarding medication adjustment, symptoms and treatment of hypoglycemia, diet adherence, and checking BG before driving. Coding Level of Care Code Off vis,est,level 4 Diagnoses Type 2 diabetes mellitus without complication, unspecified nursing home insulin use status E11.9 Diabetes mellitus type: type 2 Diabetes mellitus complication status: without complication Diabetes mellitus nursing home insulin use: unspecified nursing home insulin use status HTN (hypertension) I10 Hypertension type: essential hypertension Mixed hyperlipidemia E78.2 Hyperlipidemia type: mixed hyperlipidemia Time Spent (min) 30 11/30/17 0802 <Electronically signed by Sheryl JONES> Date Sheryl JONES Cosigner Signature: Date (if applicable) CC: PROGRESS Observed: 11/17/2017 Status: COMPLETED Source: [place] 4:15 PM [facility] REPOSITORY HNO ID: [id number] Author: Abrahan Galvan Service: (none) Author Type: Physician Type: Progress Notes Filed: 11/30/2017 12:11 AM Note Text: Patient presents with: ED Follow-up SUBJECTIVE: Tori Lord is a 67 year old year old lady here today for hospital follow up appointment for review of medical conditions. Was going down steps and seemed like step was somewhere else so misstepped and fell. Right ankle with severe sprain. Swelling--slowly going down over the past 3 weeks.. Does where glasses with bifocals--might have contributed to misstep and fall. Able to walk and drive now. PAST MEDICAL HISTORY Diagnosis Date - Allergic rhinitis, cause unspecified 03/31/2005 - Chronic hepatitis C without hepatic coma (HCC) 03/27/2017 failed to respond to treatment started March 2016; Genotype 2; based on history-- from blood transfusion - Coronary atherosclerosis of unspecified type of vessel, [place] or graft 12/12/2006 50% lesion in LAD as seen on heart cath 11/29/2006 - Esophageal reflux - Glaucoma 07/29/10 chronic angle closure glaucoma (treated by Dr. 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 as needed.Earliest Fill Date: 10/18/17 diazePAM (VALIUM) 5 mg tablet Take 0.5-1 tablets by mouth once daily as needed for up to 30 days. simvastatin (ZOCOR) 20 mg tablet take 1 tablet by mouth at bedtime triamcinolone acetonide (KENALOG) 0.5 % cream Apply 1 application to affected area twice daily. For rash/itching. Apply sparingly. Avoid face/skin fold. blood sugar diagnostic (BLOOD GLUCOSE TEST) test strip Test blood sugar(s) 3 to 4 times daily as directed. Dx: Type 2 DM - Uncontrolled E11.65 Insulin: Yes nitroglycerin sublingual (NITROQUICK) 0.4 mg SL tablet Dissolve 1 tablet under the tongue as needed. DISSOLVE ON TONGUE FOR CHEST PAIN. IF NO PAIN RELIEF, CALL 911 [id number] 3.5 MG/ML-10,000 UNIT/ML-0.1% EYE DROPS lisinopril (ZESTRIL, PRINIVIL) 20 mg tablet Take 1 tablet by mouth twice daily. insulin detemir (LEVEMIR FLEXTOUCH) 100 unit/mL (3 mL) inpn injection Inject 15 units subcutaneously every morning;inject 10 units subcutaneously every evening. Adjust as directed insulin aspart (NOVOLOG) 100 unit/mL inpn Take 10 units with meals as directed (east 2 to 3 meals per day). Adjust as directed. diclofenac (FLECTOR) 1.3 % topical patch Apply 1 application to affected area. On for 12 hours at a time codeine-guaiFENesin (ROBITUSSIN AC) 10-100 mg/5 mL syrup Take 5-10 mL by mouth four times daily as needed for Cough. May cause drowsiness. blood sugar diagnostic (ONETOUCH ULTRA TEST) test strip Test blood sugar(s) 4 times daily. Dx: Type 2 DM - Uncontrolled E11.65 Insulin: Yes insulin needles, DISPOSABLE, (PEN NEEDLE) 31 gauge x 5/16 ndle 1 Each four times daily. Ciclopirox (LOPROX) 8 % solution Apply 1 application to affected area daily at bedtime. Lancets (FINGERSTIX LANCETS) [facility] use as directed No current facility-administered medications for this visit. OBJECTIVE: Pulse 86 Resp 16 Wt 79.4 kg (175 lb) BMI 33.07 kg/m? Patient is alert, oriented times 3, no apparent distress, affect is bright, reactive. Ext: No cyanosis, clubbing, or edema except ankle swelling on right--bilateral; with some lateral foot swelling. ASSESSMENT AND PLAN: Encounter Diagnosis ICD-10-CM 1. Sprain of right ankle, unspecified ligament, subsequent encounter S93.401D HYDROcodone-Acetaminophen (NORCO) 7.5-325 mg per tablet slowly improving with swelling; able to walk and drive short distances 2. Postherpetic neuralgia B02.29 HYDROcodone-Acetaminophen (NORCO) 7.5-325 mg per tablet Has January appointment Will follow up as needed. Chiropractor still for back pain issues prior to fall. Has had increased pain after fell. Overall doing better. Follow up with orthopedist or rivet hole machine operator as needed. Needing pain med for the ankle too now. Already on for postherpetic neuralgia. OARRS website checked and validated. All prescriptions have been APPROPRIATELY filled. No suspicious activity was identified.- 11/30/2017 by Abrahan Galvan MD Stable with pain control. No signs of diversion or abuse of medication(s); no adverse effects. Continue present management. Above issues addressed with patient. Patient involved in shared decision making for management of her medical issues. History and medications reviewed. Epic updated as needed Refills taken care of and meds adjusted as indicated after reviewed history, exam and labs. Health Maintenance reviewed. Updated record and/or ordered tests as recorded. Encouraged on efforts at healthy diet and regular exercise and adequate sleep. The majority of the visit was spent counseling and/or coordinating care for the patient. Tfwc-af-yixv time was at lest 20 minutes. Abrahan Galvan MD CNOV Observed: 11/17/2017 Status: COMPLETED Source: [place] 3:40 PM [facility] REPOSITORY Office Visit (INTMWS) TORI LORD ([id number]) 1950 F Date Time Provider Department 11/17/17 3:40 PM ABRAHAN GALVAN INTMWS During your visit today, we recorded the following information about you: Pulse Respiration Weight 86/minute 16/minute 79.4 kg Abrahan Galvan MD 11/30/2017 12:11 AM Signed Patient presents with: ED Follow-up SUBJECTIVE: Tori Lord is a 67 year old year old lady here today for hospital follow up appointment for review of medical conditions. Was going down steps and seemed like step was somewhere else so misstepped and fell. Right ankle with severe sprain. Swelling--slowly going down over the past 3 weeks.. Does where glasses with bifocals--might have contributed to misstep and fall. Able to walk and drive now. PAST MEDICAL HISTORY Diagnosis Date - Allergic rhinitis, cause unspecified 03/31/2005 - Chronic hepatitis C without hepatic coma (HCC) 03/27/2017 failed to respond to treatment started March 2016; Genotype 2; based on history-- from blood transfusion - Coronary atherosclerosis of unspecified type of vessel, [place] or graft 12/12/2006 50% lesion in LAD as seen on heart cath 11/29/2006 - Esophageal reflux - Glaucoma 07/29/10 chronic angle closure glaucoma (treated by Dr. 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 as needed.Earliest Fill Date: 10/18/17 diazePAM (VALIUM) 5 mg tablet Take 0.5-1 tablets by mouth once daily as needed for up to 30 days. simvastatin (ZOCOR) 20 mg tablet take 1 tablet by mouth at bedtime triamcinolone acetonide (KENALOG) 0.5 % cream Apply 1 application to affected area twice daily. For rash/itching. Apply sparingly. Avoid face/skin fold. blood sugar diagnostic (BLOOD GLUCOSE TEST) test strip Test blood sugar(s) 3 to 4 times daily as directed. Dx: Type 2 DM - Uncontrolled E11.65 Insulin: Yes nitroglycerin sublingual (NITROQUICK) 0.4 mg SL tablet Dissolve 1 tablet under the tongue as needed. DISSOLVE ON TONGUE FOR CHEST PAIN. IF NO PAIN RELIEF, CALL 911 [id number] 3.5 MG/ML-10,000 UNIT/ML-0.1% EYE DROPS lisinopril (ZESTRIL, PRINIVIL) 20 mg tablet Take 1 tablet by mouth twice daily. insulin detemir (LEVEMIR FLEXTOUCH) 100 unit/mL (3 mL) inpn injection Inject 15 units subcutaneously every morning;inject 10 units subcutaneously every evening. Adjust as directed insulin aspart (NOVOLOG) 100 unit/mL inpn Take 10 units with meals as directed (east 2 to 3 meals per day). Adjust as directed. diclofenac (FLECTOR) 1.3 % topical patch Apply 1 application to affected area. On for 12 hours at a time codeine-guaiFENesin (ROBITUSSIN AC) 10-100 mg/5 mL syrup Take 5-10 mL by mouth four times daily as needed for Cough. May cause drowsiness. blood sugar diagnostic (HandupTOUCH ULTRA TEST) test strip Test blood sugar(s) 4 times daily. Dx: Type 2 DM - Uncontrolled E11.65 Insulin: Yes insulin needles, DISPOSABLE, (PEN NEEDLE) 31 gauge x 5/16 ndle 1 Each four times daily. Ciclopirox (LOPROX) 8 % solution Apply 1 application to affected area daily at bedtime. Lancets (FINGERSTIX LANCETS) [facility] use as directed No current facility-administered medications for this visit. OBJECTIVE: Pulse 86 Resp 16 Wt 79.4 kg (175 lb) BMI 33.07 kg/m? Patient is alert, oriented times 3, no apparent distress, affect is bright, reactive. Ext: No cyanosis, clubbing, or edema except ankle swelling on right--bilateral; with some lateral foot swelling. ASSESSMENT AND PLAN: Encounter Diagnosis ICD-10-CM 1. Sprain of right ankle, unspecified ligament, subsequent encounter S93.401D HYDROcodone-Acetaminophen (NORCO) 7.5-325 mg per tablet slowly improving with swelling; able to walk and drive short distances 2. Postherpetic neuralgia B02.29 HYDROcodone-Acetaminophen (NORCO) 7.5-325 mg per tablet Has January appointment Will follow up as needed. Chiropractor still for back pain issues prior to fall. Has had increased pain after fell. Overall doing better. Follow up with orthopedist or rivet hole machine operator as needed. Needing pain med for the ankle too now. Already on for postherpetic neuralgia. OARRS website checked and validated. All prescriptions have been APPROPRIATELY filled. No suspicious activity was identified.- 11/30/2017 by Abrahan Galvan MD Stable with pain control. No signs of diversion or abuse of medication(s); no adverse effects. Continue present management. Above issues addressed with patient. Patient involved in shared decision making for management of her medical issues. History and medications reviewed. Epic updated as needed Refills taken care of and meds adjusted as indicated after reviewed history, exam and labs. Health Maintenance reviewed. Updated record and/or ordered tests as recorded. Encouraged on efforts at healthy diet and regular exercise and adequate sleep. The majority of the visit was spent counseling and/or coordinating care for the patient. Wvkx-tn-resi time was at lest 20 minutes. Abrahan Galvan MD Referring Provider: SELF [[id number]] Allergies As of Date: 11/17/2017 Noted Allergy Reaction BENTYL (DICYCLOMINE) 12/30/2016 1 - Mental Status Change Comments: difficulty thinking Caused her to take extra insulin because did not remember taking it BYETTA (EXENATIDE) 01/03/2012 8 - GI Upset CYCLOBENZAPRINE 06/28/2011 14 - Other: See Comments Comments: Vaginal itich DOXYCYCLINE 03/22/2013 11 - Vomiting METFORMIN 03/31/2005 8 - GI Upset NEURONTIN (GABAPENTIN) 10/14/2006 5 - Intolerance Comments: bad dreams NSAIDS (NON-STEROIDAL ANTI-INFLAM*10/23/2007 8 - GI Upset Comments: Avoids all NSAIDs because upsets her stomach Date Reviewed: 11/17/2017 Reviewed by: Rosita Simon Shear Setter - Fully Assessed Reason for Visit: ED Follow-up [821] Primary Visit Diagnosis:Sprain of right ankle, unspecified ligament, subsequent encounter [S93.401D] Comment:slowly improving with swelling; able to walk and drive short distances Other Visit Diagnosis:Postherpetic neuralgia [B02.29] Order(s):HYDROcodone-Acetaminophen (NORCO) 7.5-325 mg per tabletTake 1-2 tablets by mouth once daily for 30 days. as needed. Earliest Fill Date: 11/17/17Disp: 60 tabletRfl: 0 triamcinolone acetonide (KENALOG) 0.5 % creamApply 1 application to affected area twice daily. For rash/itching. Apply sparingly. Avoid face/skin fold.Disp: 30 gRfl: 0 Prescriptions as of 11/17/2017 Sig: HYDROCODONE 7.5 MG-ACETAMINOP* Take 1-2 tablets by mouth onc* TRIAMCINOLONE ACETONIDE 0.5 %* Apply 1 application to affect* DIAZEPAM 5 MG TABLET Take 0.5-1 tablets by mouth o* SIMVASTATIN 20 MG TABLET take 1 tablet by mouth at bed* BLOOD SUGAR DIAGNOSTIC STRIPS Test blood sugar(s) 3 to 4 ti* NITROGLYCERIN 0.4 MG SUBLINGU* Dissolve 1 tablet under the t* [id number]-[id number] 3* LISINOPRIL 20 MG TABLET Take 1 tablet by mouth twice * INSULIN DETEMIR (U-100) 100 U* Inject 15 units subcutaneousl* INSULIN ASPART U-100 100 UNI* Take 10 units with meals as d* DICLOFENAC EPOLAMINE 1.3 % TR* Apply 1 application to affect* CODEINE 10 MG-GUAIFENESIN 100* Take 5-10 mL by mouth four ti* BLOOD SUGAR DIAGNOSTIC STRIPS Test blood sugar(s) 4 times d* PEN NEEDLE, DIABETIC 31 GAUGE* 1 Each four times daily. CICLOPIROX 8 % TOPICAL SOLUTI* Apply 1 application to affect* * FINGERSTIX LANCETS use as directed Problem List As Of Date 11/17/2017 Noted Resolved TRIGGER FINGER [M65.30] INVALID FOR* More... Essential hypertension [I10] INVALID FOR* More... Esophageal reflux [K21.9] INVALID FOR*01/31/2013 More... ALLERGIC RHINITIS NOS [J30.9] INVALID FOR* PERS HX OF DISEASES NEC [V13.8] INVALID FOR* More... TENOSYNOV HAND/WRIST NEC [M65.849, M65.839] INVALID FOR* JOINT CONTRACTURE-HAND [M24.549] INVALID FOR* CORONARY ATHEROSCLER UNSPEC VESSEL [I25.10] INVALID FOR* More... 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 Acute back pain with sciatica [M54.40] INVALID FOR* More... 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 Prescriptions ordered this encounter Disp Refills Start End HYDROCODONE 7.5 MG-ACETAMINOPHEN 325* 60 t* 0 11/17/2017 12/17/2017 Class: Print RX Route: ORAL Sig: Take 1-2 tablets by mouth once daily for 30 days. as needed. Earliest Fill Date: 11/17/17 TRIAMCINOLONE ACETONIDE 0.5 % TOPICA* 30 g 0 11/17/2017 Route: TOPICAL Sig: Apply 1 application to affected area twice daily. For rash/itching. Apply sparingly. Avoid face/skin fold. Medications Discontinued During This Encounter HYDROcodone-Acetaminophen (NORCO) 7.* 60 t* 0 10/18/2017 11/17/2017 Class: Print RX Route: ORAL Sig: Take 1-2 tablets by mouth once daily for 30 days. as needed. Earliest Fill Date: 10/18/17 Disc: Reason for discontinue is not on file. triamcinolone acetonide (KENALOG) 0.* 15 g 0 06/23/2017 11/17/2017 Route: TOPICAL Sig: Apply 1 application to affected area twice daily. For rash/itching. Apply sparingly. Avoid face/skin fold. Disc: Reason for discontinue is not on file. Disposition: Return if symptoms worsen or fail to improve, for January as scheduled. Follow-up and Disposition History Recorded Encounter Status:Closed by ABRAHAN GALVAN MD on 11/30/17 DISCHARGE INSTRUCTION Observed: 11/02/2017 Status: F Source: [place] 8:34 AM [facility] REPOSITORY [facility] Medical Records Department [address] [place] [address] Discharge Instruction 11/02/17 0832 MR#: [id number] Acct: [id number] Name: TORI LORD Rep #: [id number] : 1950 67 From: Grace Dillard DO PCP: Abrahan Galvan MD Status: REG ER ED Disposition - Plan for ED Patient: Chief Complaint: Lower Extremity Injury Instructions: ED Sprain Ankle W X Ray Prescriptions: Hydrocodone Bitart/Apap 5-325 [[place] 5/325] 1 - 2 tab PO Q4H PRN PRN 3 Days #12 tab PRN Reason: Pain Referrals: Abrahan Galvan MD [Primary Care Provider] - 5-7 Days What to do if you have Problems For any increased pain, shortness of breath, bleeding, nausea or vomiting, chest pain, or any unexpected problems, contact your Primary Care Provider. Call [facility] ([phone]) or report to the closest Emergency Room. Call 911 if necessary. 11/02/17 0834 <Electronically signed by Grace Dillard DO> Date Grace Dillard DO Cosigner Signature (If Indicated): Date CC: Abrahan Galvan MD EMERGENCY DEPARTMENT Observed: 11/02/2017 Status: F Source: [place] SUMMARY 8:31 AM [facility] Medical Records Department [address] [place] [address] Emergency Department Summary 11/02/17 0829 MR#: [id number] Acct: [id number] Name: TORI LORD Rep #: [id number] : 1950 67 From: Grace Dillard DO PCP: Abrahan Galvan MD Status: REG ER - ER Visit Summary Date of Service: 11/02/17 Chief Complaint: [Injury right ankle] History of Present Illness: The patient is a 67 F [presents to the emergency department via EMS after sustaining an injury to her right ankle during a fall this morning. Patient states that she had gone out to her car to take her to dialysis when she slipped and fell injuring her right ankle. Patient initially able to bear some weight but actually had to crawl into the house where she was able to get onto the couch and call for help. Patient denies any other injuries. Patient denies striking her head. Patient denies neck pain. Patient denies chest pain or abdominal pain.] Physical Examination: [HEENT-PERRLA, EOMI. Cranial nerves II through XII grossly intact. TMs clear. Mucous membranes moist. No adenopathy. No C-spine tenderness on palpation. Cardiovascular-regular rate and rhythm without murmur or ectopy Lungs-clear to auscultation, chest wall stable without crepitus or subcu emphysema Abdomen-normoactive bowel sounds, soft, nontender, no rebound or rigidity, no peritoneal signs. Extremities-intact 4, normal range of motion, normal pulses, atraumatic]. Right ankle-patient has soft tissue swelling over the lateral malleolus. Patient has tenderness over the proximal fibular head and lateral malleolus. No pain at the base of the fifth metatarsal. Neurovascular intact. No obvious deformity. Test Results: [X-rays of the right ankle and right tib-fib obtained showed no fractures.] Emergency Department Course and Treatment: [Patient will receive Marlene wrap, air splint, and crutches. Patient was given 4 mg of morphine and 4 mg of Zofran on arrival.] Treatment Plan: [Patient advised to ice and elevate extremity and follow-up with her primary care physician in 7-10 days. Patient will be given a prescription for 12 [place].] Disposition: [Discharged to home in stable condition.] Impression: [Right ankle sprain] This note was generated with [employer] dictation software. It may contain incorrect words, spelling, and punctuation that were not noted in review of the chart prior to signing ED Disposition - Plan for ED Patient: Chief Complaint: Lower Extremity Injury Referrals: Abrahan Galvan MD [Primary Care Provider] - What to do if you have Problems For any increased pain, shortness of breath, bleeding, nausea or vomiting, chest pain, or any unexpected problems, contact your Primary Care Provider. Call [facility] ([phone]) or report to the closest Emergency Room. Call 911 if necessary. 11/02/17 0867 <Electronically signed by Grace Dillard DO> Date Grace Dillard DO Cosigner Signature (If Indicated): Date CC: Abrahan Galvan MD ANKLE MIN 3 VIEWS Observed: 11/02/2017 Status: F Source: [place] 7:30 AM [facility] REPOSITORY [facility] Imaging Services [address] [place] [address] Ankle min 3 Views MR#: [id number] Acct: [id number] Name: TORI LORD Rep #: [id number] : 1950 F 67 From: Ephraim Leonard MD PCP: Abrahan Galvan MD Status: REG ER Study: Ankle min 3 Views Date of Exam: 11/02/17 Exam# [id number] Ordering Dr: Grace Dillard DO STUDY: X-RAY - RIGHT ANKLE REASON FOR EXAM: Female, 67 years old. Status post fall with ankle pain and swelling. TECHNIQUE: 3 view(s) of the ankle. COMPARISON: None. FINDINGS: Osseous alignment appear anatomic. The ankle mortise is preserved. There is no acute fracture lucency. There is no cortical step-off. 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 There is a well-corticated degenerative plantar spur on the calcaneus. There is nonspecific marked lateral soft tissue swelling. RAD/Ankle min 3 Views IMPRESSION: No radiographically evident acute osseous abnormality. Marked lateral soft tissue swelling/edema. Electronically Signed: Ephraim Leonard MD at 8:24 EDT , Service support , CC: Abrahan Galvan MD; Grace Dillard DO Delivery Stock Clerk: Signed TIBIA AND FIBULA Observed: 11/02/2017 Status: F Source: [place] 2 VIEWS 7:30 AM [facility] REPOSITORY [facility] Imaging Services [address] [place] [address] Tibia AND Fibula 2 Views MR#: [id number] Acct: [id number] Name: TORI LORD Rep #: [id number] : 1950 F 67 From: Ephraim Leonard MD PCP: Abrahan Galvan MD Status: REG ER Study: Tibia AND Fibula 2 Views Date of Exam: 11/02/17 Exam# [id number] Ordering Dr: Grace Dillard DO STUDY: X-RAY - RIGHT TIBIA AND FIBULA REASON FOR EXAM: Female, 67 years old. Pain status post fall. TECHNIQUE: 2 view(s) of the tibia and fibula were obtained. COMPARISON: None. FINDINGS: Osseous alignments appear anatomic. There is no acute fracture lucency. There is no cortical step-off. There is soft tissue swelling/edema overlying the lateral malleolus. A well corticated plantar calcaneal spur is identified degenerative in nature. RAD/Tibia AND Fibula 2 Views IMPRESSION: No plain film evident acute osseous abnormality. Lateral malleolar soft tissue swelling. Degenerative anterior spur on the calcaneus. Electronically Signed: Ephraim Leonard MD at 8:25 EDT , Service support , CC: Abrahan Galvan MD; Grace Dillard DO Delivery Stock Clerk: Signed PROGRESS Observed: 10/18/2017 Status: COMPLETED Source: [place] 1:08 PM [facility] RE[facility] HNO ID: [id number] Author: Abrahan Galvan Service: (none) Author Type: Physician Type: Progress Notes Filed: 10/27/2017 4:10 PM Note Text: Patient presents with: Recheck SUBJECTIVE: Tori Lord is a 67 year old year old lady here today for follow up appointment for review of medical conditions. Pain right abdomen discussed. Dr. Bennett on [place] saw her in a couple days after we discussed. Chiropractor treatment helped. 2 treatments and pain gone. Was sore for a week, but no resolved. Lower back did act up. Doing stretching for this. PAST MEDICAL HISTORY Diagnosis Date - Allergic rhinitis, cause unspecified 03/31/2005 - Chronic hepatitis C without hepatic coma (HCC) 03/27/2017 failed to respond to treatment started March 2016; Genotype 2; based on history-- from blood transfusion - Coronary atherosclerosis of unspecified type of vessel, [place] or graft 12/12/2006 50% lesion in LAD as seen on heart cath 11/29/2006 - Esophageal reflux - Glaucoma 07/29/10 chronic angle closure glaucoma (treated by Dr. 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 simvastatin (ZOCOR) 20 mg tablet take 1 tablet by mouth at bedtime HYDROcodone-Acetaminophen (NORCO) 7.5-325 mg per tablet Take 1-2 tablets by mouth once daily for 30 days. as needed.Earliest Fill Date: 07/14/17 triamcinolone acetonide (KENALOG) 0.5 % cream Apply 1 application to affected area twice daily. For rash/itching. Apply sparingly. Avoid face/skin fold. blood sugar diagnostic (BLOOD GLUCOSE TEST) test strip Test blood sugar(s) 3 to 4 times daily as directed. Dx: Type 2 DM - Uncontrolled E11.65 Insulin: Yes nitroglycerin sublingual (NITROQUICK) 0.4 mg SL tablet Dissolve 1 tablet under the tongue as needed. DISSOLVE ON TONGUE FOR CHEST PAIN. IF NO PAIN RELIEF, CALL 911 [id number] 3.5 MG/ML-10,000 UNIT/ML-0.1% EYE DROPS lisinopril (ZESTRIL, PRINIVIL) 20 mg tablet Take 1 tablet by mouth twice daily. insulin detemir (LEVEMIR FLEXTOUCH) 100 unit/mL (3 mL) inpn injection Inject 15 units subcutaneously every morning;inject 10 units subcutaneously every evening. Adjust as directed insulin aspart (NOVOLOG) 100 unit/mL inpn Take 10 units with meals as directed (east 2 to 3 meals per day). Adjust as directed. diclofenac (FLECTOR) 1.3 % topical patch Apply 1 application to affected area. On for 12 hours at a time codeine-guaiFENesin (ROBITUSSIN AC) 10-100 mg/5 mL syrup Take 5-10 mL by mouth four times daily as needed for Cough. May cause drowsiness. blood sugar diagnostic (HandupTOUCH ULTRA TEST) test strip Test blood sugar(s) 4 times daily. Dx: Type 2 DM - Uncontrolled E11.65 Insulin: Yes insulin needles, DISPOSABLE, (PEN NEEDLE) 31 gauge x 5/16 ndle 1 Each four times daily. Ciclopirox (LOPROX) 8 % solution Apply 1 application to affected area daily at bedtime. Lancets (FINGERSTIX LANCETS) [facility] use as directed No current facility-administered medications for this visit. OBJECTIVE: BP 140/98 Pulse 64 Resp 16 Wt 80.3 kg (177 lb) BMI 33.44 kg/m2 Patient is alert, oriented times 3, no apparent distress, affect is bright, reactive. Last 5 Encounter BP Readings: Date: BP: 10/18/2017 140/98 09/01/2017 134/88 08/04/2017 187/84 06/07/2017 132/88 05/26/2017 130/80 Last 5 Encounter Wt Readings: Date: Wt: 10/18/2017 80.3 kg (177 lb) 08/04/2017 78 kg (172 lb) 06/23/2017 80.7 kg (178 lb) 06/07/2017 79.8 kg (176 lb) 05/26/2017 79.4 kg (175 lb) 10/18/17 1246 10/18/17 1315 BP: 140/98 150/88 Pulse: 64 Resp: 16 Weight: 80.3 kg (177 lb) Heart: Regular rate, rhythm, no murmurs, gallops, rubs. Lungs: Clear to auscultation, bilaterally, breathing non labored. Ext: No cyanosis, clubbing, or edema. ASSESSMENT AND PLAN: Encounter Diagnosis ICD-10-CM 1. Essential hypertension I10 2. Postherpetic neuralgia B02.29 HYDROcodone-Acetaminophen (NORCO) 7.5-325 mg per tablet 3. RUQ pain R10.11 4. Midline low back pain without sciatica, unspecified chronicity M54.5 BP controlled. Continue present management. RUQ pain resolved with chiropractor treatments. LBP from strain noted but not severe enough to need further care. Will refer for pain management as indicated. At this time, stable on current meds so no referral needed. Stable with pain control. No signs of diversion or abuse of medication(s); no adverse effects. Continue present management. OARRS website checked and validated. All prescriptions have been APPROPRIATELY filled. No suspicious activity was identified.- 10/27/2017 by Abrahan Galvan MD Above issues addressed with patient. Patient involved in shared decision making for management of her medical issues. History and medications reviewed. Epic updated as needed Refills taken care of and meds adjusted as indicated after reviewed history, exam and labs. Health Maintenance reviewed. Updated record and/or ordered tests as recorded. Encouraged on efforts at healthy diet and regular exercise and adequate sleep. The majority of the visit was spent counseling and/or coordinating care for the patient. Phef-vv-rmtr time was at least 25 minutes. Abrahan Galvan MD CNOV Observed: 10/18/2017 Status: COMPLETED Source: [place] 11:40 AM [facility] REPOSITORY Office Visit (INTMWS) TORI LORD ([id number]) 1950 F Date Time Provider Department 10/18/17 11:40 AM ABRAHAN GALVAN During your visit today, we recorded the following information about you: Pulse Respiration Blood pressure Weight 64/minute 16/minute 150/88 80.3 kg Abrahan Galvan MD 10/27/2017 4:10 PM Signed Patient presents with: Recheck SUBJECTIVE: Tori Lord is a 67 year old year old lady here today for follow up appointment for review of medical conditions. Pain right abdomen discussed. Dr. Bennett on [facility] saw her in a couple days after we discussed. Chiropractor treatment helped. 2 treatments and pain gone. Was sore for a week, but no resolved. Lower back did act up. Doing stretching for this. PAST MEDICAL HISTORY Diagnosis Date - Allergic rhinitis, cause unspecified 03/31/2005 - Chronic hepatitis C without hepatic coma (HCC) 03/27/2017 failed to respond to treatment started March 2016; Genotype 2; based on history-- from blood transfusion - Coronary atherosclerosis of unspecified type of vessel, [place] or graft 12/12/2006 50% lesion in LAD as seen on heart cath 11/29/2006 - Esophageal reflux - Glaucoma 07/29/10 chronic angle closure glaucoma (treated by Dr. 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 simvastatin (ZOCOR) 20 mg tablet take 1 tablet by mouth at bedtime HYDROcodone-Acetaminophen (NORCO) 7.5-325 mg per tablet Take 1-2 tablets by mouth once daily for 30 days. as needed.Earliest Fill Date: 07/14/17 triamcinolone acetonide (KENALOG) 0.5 % cream Apply 1 application to affected area twice daily. For rash/itching. Apply sparingly. Avoid face/skin fold. blood sugar diagnostic (BLOOD GLUCOSE TEST) test strip Test blood sugar(s) 3 to 4 times daily as directed. Dx: Type 2 DM - Uncontrolled E11.65 Insulin: Yes nitroglycerin sublingual (NITROQUICK) 0.4 mg SL tablet Dissolve 1 tablet under the tongue as needed. DISSOLVE ON TONGUE FOR CHEST PAIN. IF NO PAIN RELIEF, CALL 911 HAUTNDEH-ZEWDCMNVG-IXPGUMPW 3.5 MG/ML-10,000 UNIT/ML-0.1% EYE DROPS lisinopril (ZESTRIL, PRINIVIL) 20 mg tablet Take 1 tablet by mouth twice daily. insulin detemir (LEVEMIR FLEXTOUCH) 100 unit/mL (3 mL) inpn injection Inject 15 units subcutaneously every morning;inject 10 units subcutaneously every evening. Adjust as directed insulin aspart (NOVOLOG) 100 unit/mL inpn Take 10 units with meals as directed (east 2 to 3 meals per day). Adjust as directed. diclofenac (FLECTOR) 1.3 % topical patch Apply 1 application to affected area. On for 12 hours at a time codeine-guaiFENesin (ROBITUSSIN AC) 10-100 mg/5 mL syrup Take 5-10 mL by mouth four times daily as needed for Cough. May cause drowsiness. blood sugar diagnostic (ONETOUCH ULTRA TEST) test strip Test blood sugar(s) 4 times daily. Dx: Type 2 DM - Uncontrolled E11.65 Insulin: Yes insulin needles, DISPOSABLE, (PEN NEEDLE) 31 gauge x 5/16ANDquot; ndle 1 Each four times daily. Ciclopirox (LOPROX) 8 % solution Apply 1 application to affected area daily at bedtime. Lancets (FINGERSTIX LANCETS) Misc Misc use as directed No current facility-administered medications for this visit. OBJECTIVE: BP 140/98 Pulse 64 Resp 16 Wt 80.3 kg (177 lb) BMI 33.44 kg/m2 Patient is alert, oriented times 3, no apparent distress, affect is bright, reactive. Last 5 Encounter BP Readings: Date: BP: 10/18/2017 140/98 09/01/2017 134/88 08/04/2017 187/84 06/07/2017 132/88 05/26/2017 130/80 Last 5 Encounter Wt Readings: Date: Wt: 10/18/2017 80.3 kg (177 lb) 08/04/2017 78 kg (172 lb) 06/23/2017 80.7 kg (178 lb) 06/07/2017 79.8 kg (176 lb) 05/26/2017 79.4 kg (175 lb) 10/18/17 1246 10/18/17 1315 BP: 140/98 150/88 Pulse: 64 Resp: 16 Weight: 80.3 kg (177 lb) Heart: Regular rate, rhythm, no murmurs, gallops, rubs. Lungs: Clear to auscultation, bilaterally, breathing non labored. Ext: No cyanosis, clubbing, or edema. ASSESSMENT AND PLAN: Encounter Diagnosis ICD-10-CM 1. Essential hypertension I10 2. Postherpetic neuralgia B02.29 HYDROcodone-Acetaminophen (NORCO) 7.5-325 mg per tablet 3. RUQ pain R10.11 4. Midline low back pain without sciatica, unspecified chronicity M54.5 BP controlled. Continue present management. RUQ pain resolved with chiropractor treatments. LBP from strain noted but not severe enough to need further care. Will refer for pain management as indicated. At this time, stable on current meds so no referral needed. Stable with pain control. No signs of diversion or abuse of medication(s); no adverse effects. Continue present management. OARRS website checked and validated. All prescriptions have been APPROPRIATELY filled. No suspicious activity was identified.- 10/27/2017 by Abrahan Galvan MD Above issues addressed with patient. Patient involved in shared decision making for management of her medical issues. History and medications reviewed. Epic updated as needed Refills taken care of and meds adjusted as indicated after reviewed history, exam and labs. Health Maintenance reviewed. Updated record and/or ordered tests as recorded. Encouraged on efforts at healthy diet and regular exercise and adequate sleep. The majority of the visit was spent counseling and/or coordinating care for the patient. Eosb-cc-uwbx time was at least 25 minutes. Abrahan Galvan MD Referring Provider: MANDO DAVENPORT ([facility]) [[id number]] Allergies As of Date: 10/18/2017 Noted Allergy Reaction BENTYL (DICYCLOMINE) 12/30/2016 1 - Mental Status Change Comments: difficulty thinking Caused her to take extra insulin because did not remember taking it BYETTA (EXENATIDE) 01/03/2012 8 - GI Upset CYCLOBENZAPRINE 06/28/2011 14 - Other: See Comments Comments: Vaginal itich DOXYCYCLINE 03/22/2013 11 - Vomiting METFORMIN 03/31/2005 8 - GI Upset NEURONTIN (GABAPENTIN) 10/14/2006 5 - Intolerance Comments: bad dreams NSAIDS (NON-STEROIDAL ANTI-INFLAM*10/23/2007 8 - GI Upset Comments: Avoids all NSAIDs because upsets her stomach Date Reviewed: 10/18/2017 Reviewed by: Rosita Simon Shear Setter - Fully Assessed Reason for Visit: Recheck [92] Primary Visit Diagnosis:Essential hypertension [I10] Other Visit Diagnoses:Postherpetic neuralgia [B02.29] RUQ pain [R10.11] Midline low back pain without sciatica, unspecified chronicity [M54.5] Order(s):HYDROcodone-Acetaminophen (NORCO) 7.5-325 mg per tabletTake 1-2 tablets by mouth once daily for 30 days. as needed. Earliest Fill Date: 10/18/17Disp: 60 tabletRfl: 0 Prescriptions as of 10/18/2017 Sig: HYDROCODONE 7.5 MG-ACETAMINOP* Take 1-2 tablets by mouth onc* DIAZEPAM 5 MG TABLET Take 0.5-1 tablets by mouth o* SIMVASTATIN 20 MG TABLET take 1 tablet by mouth at bed* TRIAMCINOLONE ACETONIDE 0.5 %* Apply 1 application to affect* BLOOD SUGAR DIAGNOSTIC STRIPS Test blood sugar(s) 3 to 4 ti* NITROGLYCERIN 0.4 MG SUBLINGU* Dissolve 1 tablet under the t* EKTFXKHP-OXJWHKFSZ-UTRYQXOF 3* LISINOPRIL 20 MG TABLET Take 1 tablet by mouth twice * INSULIN DETEMIR (U-100) 100 U* Inject 15 units subcutaneousl* INSULIN ASPART U-100 100 UNI* Take 10 units with meals as d* DICLOFENAC EPOLAMINE 1.3 % TR* Apply 1 application to affect* CODEINE 10 MG-GUAIFENESIN 100* Take 5-10 mL by mouth four ti* BLOOD SUGAR DIAGNOSTIC STRIPS Test blood sugar(s) 4 times d* PEN NEEDLE, DIABETIC 31 GAUGE* 1 Each four times daily. CICLOPIROX 8 % TOPICAL SOLUTI* Apply 1 application to affect* * FINGERSTIX LANCETS use as directed Problem List As Of Date 10/18/2017 Noted Resolved TRIGGER FINGER [M65.30] INVALID FOR* More... Essential hypertension [I10] INVALID FOR* More... Esophageal reflux [K21.9] INVALID FOR*01/31/2013 More... ALLERGIC RHINITIS NOS [J30.9] INVALID FOR* PERS HX OF DISEASES NEC [V13.8] INVALID FOR* More... TENOSYNOV HAND/WRIST NEC [M65.849, M65.839] INVALID FOR* JOINT CONTRACTURE-HAND [M24.549] INVALID FOR* CORONARY ATHEROSCLER UNSPEC VESSEL [I25.10] INVALID FOR* More... 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 Acute back pain with sciatica [M54.40] INVALID FOR* More... 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 Prescriptions ordered this encounter Disp Refills Start End HYDROCODONE 7.5 MG-ACETAMINOPHEN 325* 60 t* 0 10/18/2017 11/17/2017 Class: Print RX Route: ORAL Sig: Take 1-2 tablets by mouth once daily for 30 days. as needed. Earliest Fill Date: 10/18/17 Medications Discontinued During This Encounter HYDROcodone-Acetaminophen (NORCO) 7.* 60 t* 0 07/14/2017 10/18/2017 Class: Print RX Route: ORAL Sig: Take 1-2 tablets by mouth once daily for 30 days. as needed. Earliest Fill Date: 07/14/17 Disc: Reason for discontinue is not on file. Disposition: Return for 3 months follow up (make next 2 appointments). Follow-up and Disposition History Recorded Encounter Status:Closed by ABRAHAN GALVAN MD on 10/27/17 URINALYSIS WITH Collected: 09/08/2017 Status: F Source: [facility] 11:18 AM [facility] REPOSITORY TYPE CODE TESTS RESULT OUT OF RANGE REFERENCE UNITS LAB UCOL Yellow Color Yellow LAB [facility] Clear Clarity Abnormal Cloudy Alert LAB UGLUC Negative mg/dL Glucose, Urine Negative LAB UBIL Negative Bilirubin, Urine Negative LAB UKET Negative Ketones, Urine Negative LAB USPG 1.005-1.030 Specific [place], Ur 1.014 LAB UHGB Negative Hemoglobin/Blood, Negative Ur LAB UPH 4.5-8.0 pH 6.0 LAB UPROT Negative mg/dL Protein, Abnormal Urine 100 Alert LAB UUROB Normal Urobilinogen Normal LAB UNITR Negative Nitrites Negative LAB ULKEST Negative Leukest Abnormal 1+ Alert LAB UCOM Comments SEE COMMENT Result Comment: N/A LAB UMCOM Urine SEE Kelvin Comment COMMENT Result Comment: N/A LAB UWBC 0-5 /HPF Abnormal Alert WBC 6-10 LAB URBC 0-3 /HPF RBC 0-3 LAB UCAST 0 /LPF Abnormal Alert Cast SEE COMMENT Result Comment: 1-3 Hyaline Cast LAB UEPI /HPF Epithelial SEE Cells COMMENT Result Comment: Few Squamous Epithelial Cells Performed By: #### UAWMIC #### [facility] [employer] [address] [place], [place] [address] ALBUMIN/CREAT RATIO Collected: 09/08/2017 Status: F Source: [place] 11:18 AM [facility] REPOSITORY TYPE CODE TESTS RESULT OUT OF REFERENCE UNITS RANGE LAB UCRR 20-300 mg/dL Creatinine,Ur 88.8 ine,Ran LAB UALBR 0.0-23.0 mg/L High Albumin Urine 1338.3 Random LAB UALBCR 0-30 mg/g High Albumin/Creat 1507 Ratio Result Comment: 30 to 300 mg/g indicates an increased risk for diabetic nephropathy. Greater than 300 mg/g is consistent with clinical nephropathy. (Am J Kidney Disease 1995, 25:107) Performed By: #### UACR #### [facility] [employer] [address], [place] [address] CBC Collected: 09/08/2017 Status: F Source: [place] 11:03 AM [facility] REPOSITORY TYPE CODE TESTS RESULT OUT OF REFERENCE UNITS RANGE LAB WBC 3.70-11.00 k/uL WBC 6.24 LAB RBC 3.90-5.20 m/uL RBC High 5.21 LAB HGB 11.5-15.5 g/dL Hemoglobin 13.4 LAB HCT 36.0-46.0 % Hematocrit 45.5 LAB MCV 80.0-100.0 fL MCV 87.3 LAB MCH 26.0-34.0 pG Low MCH 25.7 LAB MCHC 30.5-36.0 g/dL Low MCHC 29.5 LAB RDWCV 11.5-15.0 % RDW-CV 14.6 LAB PLTCT 150-400 k/uL Platelet Count 176 LAB MPV 9.0-12.7 fL MPV 11.6 LAB ABSNUC <0.01 k/uL Absolute nRBC <0.01 Performed By: #### CBC, CMP, LIPB, HBA1C #### [facility] [address] [place], [place] [address] COMP METABOLIC PANEL Collected: 09/08/2017 Status: F Source: [place] 11:03 AM [facility] REPOSITORY TYPE CODE TESTS RESULT OUT OF REFERENCE UNITS RANGE LAB TP 6.3-8.0 g/dL Protein, Total 6.9 LAB ALB 3.9-4.9 g/dL Low Albumin 3.8 LAB CA 8.5-10.2 mg/dL Calcium, Total 8.8 LAB TBIL 0.2-1.3 mg/dL Bilirubin, Total 0.5 LAB ALKP 32-117 U/L Alkaline Phosphatase 58 LAB AST 13-35 U/L AST 18 LAB GLU 74-99 mg/dL Glucose High 124 Result Comment: The [place] Diabetes Association (ADA) provides guidance for cutoff values for fasting glucose and random glucose. The ADA defines fasting as no caloric intake for at least 8 hours. Fas ting plasma glucose results between 100 to 125 mg/dL indicate increased risk for diabetes (prediabetes). Fasting plasma glucose results greater than or equal to 126 mg/dL meet the criteria for diagnosis of diabetes. In the absence of unequivocal hyperglycemia, results should be confirmed by repeat testing. In a patient with classic symptoms of hyperglycemia or hyperglycemic crisis, random plasma glucose results greater than or equal to 200 mg/dL meet the criteria for diagnosis of diabetes. Reference: Standards of Medical Care in Diabetes 2016, [place] Diabetes Association. Diabetes Care. 2016.39(Suppl 1). LAB BUN 7-21 mg/dL BUN 16 LAB CRET 0.58-0.96 mg/dL Creatinine High 1.03 LAB NA 136-144 mmol/L Sodium 144 LAB K 3.7-5.1 mmol/L Potassium 4.5 LAB CL 97-105 mmol/L Chloride 105 LAB CO2 22-30 mmol/L CO2 29 LAB AGAP 9-18 mmol/L Anion Gap 10 LAB ALT 7-38 U/L ALT 14 LAB GFRAA eGFR- Amer. >60 LAB GFRNAA . eGFR-All Other Races 53 Result Comment: eGFR (Estimated GFR) Units of measure: mL/min/1.73 meters squared eGFR is derived from the reexpressed MDRD Study equation using the following parameters: serum creatinine, age, gender and race. The creatinine assay has been calibrated to be traceable to IDMS. An eGFR <60 mL/min/1.73m2 for >3 months is consistent with chronic kidney disease. Refer to KDOQI guidelines for clinical interpretation. In patients with unstable renal function, e.g. those with acute kidney injury, the eGFR may not accurately reflect actual GFR. Performed By: #### CBC, CMP, LIPB, HBA1C #### [facility] [address] [place] [id number] LIPID PANEL, BASIC Collected: 09/08/2017 Status: F Source: [place] 11:03 AM [facility] REPOSITORY TYPE CODE TESTS RESULT OUT OF REFERENCE UNITS RANGE LAB CHOL <200 mg/dL Cholesterol 184 Result Comment: <200 mg/dL, Desirable 200-239 mg/dL, Borderline high >239 mg/dL, High LAB TRIGLY <150 mg/dL Triglyceride 70 Result Comment: <150 mg/dL, Normal 150-199 mg/dL, Borderline high 200-499 mg/dL, High >499 mg/dL, Very high LAB HDL >39 mg/dL HDL-Cholesterol 57 Result Comment: 40-59 mg/dL, Acceptable >59 mg/dL, High: Negative risk factor for coronary heart disease <40 mg/dL, Low: Positive risk factor for coronary heart disease LAB LDL <100 mg/dL LDL-Cholesterol High 113 Result Comment: <100 mg/dL, Optimal 100-129 mg/dL, Near optimal/above optimal 130-159 mg/dL, Borderline high 160-189 mg/dL, High >189 mg/dL, Very high Secondary prevention optimal LDL Cholesterol levels are recommended to be < 70 mg/dL LAB NONHDL <130 mg/dL Non HDL Cholesterol 127 Result Comment: <130 mg/dL, Optimal 130-159 mg/dL, Near optimal/above optimal 160-189 mg/dL, Borderline high 190-219 mg/dL, High >219 mg/dL, Very high Secondary prevention optimal non HDL Cholesterol levels are recommended to be < 100 mg/dL LAB FT hrs Fasting Time 12 LAB VLDL <30 mg/dL VLDL Cholesterol 14 LAB TCHDL <5.10 TC:HDL Ratio 3.23 LAB LDLHDL <2.54 LDL:HDL Ratio 1.98 Result Comment: Reference: 1. National Cholesterol Education Program ATP III Guideline At-A-Glance Quick Desk Reference: National Heart, Lung, and Blood [place]. National Institutes of Health. 2001: NIH Publication No. 01-3305. 2. An International Atherosclerosis Society position paper: global recommendations for the management of dyslipidemia: executive summary, Atherosclerosis. 2014: 232(2):410-413. Performed By: #### CBC, CMP, LIPB, HBA1C #### [facility] [employer] [address] [place] [id number] HEMOGLOBIN A1C Collected: 09/08/2017 Status: F Source: [place] 11:03 AM [facility] REPOSITORY TYPE CODE TESTS RESULT OUT OF REFERENCE UNITS RANGE LAB HGBA1C 4.3-5.6 % High Hemoglobin A1c 8.0 LAB HBA0 mg/dL Est. Average Glucose 183 Result Comment: eAG: (Estimated average glucose) is a calculated value from HgbA1c and is accounting representative of the average blood glucose level in the last 2-3 month period. Performed By: #### CBC, CMP, LIPB, HBA1C #### [facility] [employer] [address] [place], [place] [address] PROGRESS Observed: 09/01/2017 Status: COMPLETED Source: [place] 3:46 PM [facility] REPOSITORY HNO ID: [id number] Author: El David Service: (none) Author Type: Physician Type: Progress Notes Filed: 09/01/2017 9:26 PM Note Text: Subjective: Patient presents to clinic c/o painful toenails. They state that the nails are especially painful with shoe gear and pressure. Patient states that nails 1-5 b/l are painful. Patient admits to being diabetic and states that their blood sugar was 147 mg/dL this AM. No other pedal complaints at this time. Patient states no change in medications or medical history since last visit. Objective: Patient presents to clinic ambulating in diabetic shoes Vasc: DP and PT pulses are palpable bilateral. CFT is less than 5 seconds bilateral. Skin temperature is warm to cool proximal to distal bilateral. There is mild edema or varicosities noted. Neuro: Protective sensation is decreased to the foot and toes when tested with the 5.07 SWM bilateral. Vibratory sensation is decreased at the hallux IPJ bilateral. The hallux is downgoing bilateral. Derm: Nails 1-5 b/l are painful, discolored-yellow, thick, crumbly, dystrophic and with subungal debris. Skin is dry and scaly, bilateral. There are dry,superficial callus of b/l hallux. No ulcerations, scars, verruca or other lesions noted. Ortho: Muscle strength is 5/5 for all pedal groups tested. Ankle joint DF is full with the knee extended with no pain or crepitus noted. 1st MPJ ROM is full bilateral. Assessment: (B35.1) Onychomycosis (primary encounter diagnosis) (M79.675) Pain in toe of left foot (M79.674) Pain in toe of right foot (L85.3) Xerosis cutis (E11.42) Diabetic polyneuropathy associated with type 2 diabetes mellitus (HCC) (L85.9) Hyperkeratosis Plan: Patient was seen and evaluated. Nails 1-5 bilateral were debrided in length and thickness. Patient to continue with lotion to feet daily Patient callus superficially debrided as courtesy with sanding disk. If callus returns, come in for debridement. Continue with diabetic shoes. Patient was instructed on the continued importance of diabetic foot care along with proper diet and keeping their blood sugar under control to prevent complications. Patient is to RTC in 3-4 months. El David DPM PROGRESS Observed: 09/01/2017 Status: COMPLETED Source: [place] 3:00 PM [facility] REPOSITORY HNO ID: [id number] Author: Nikki Mata RN Service: (none) Author Type: (none) Type: Progress Notes Filed: 09/01/2017 9:26 PM Note Text: Pt reports that her blood sugar was 147 this morning. PROGRESS Observed: 09/01/2017 Status: COMPLETED Source: [place] 10:00 AM [facility] REPOSITORY HNO ID: [id number] Author: Abrahan Galvan Service: (none) Author Type: Physician Type: Progress Notes Filed: 09/18/2017 9:20 PM Note Text: Patient presents for DM SMA with Dr. Galvan and Yoli Lan, ScottD GOALS: A1c < 8% Tori Lord is a 67 year old female was last seen by PCP, Dr. Galvan on 08/04/17. At last PCP visit patient was continued on current regimen. Has routine with taking PM meds so not missing doses. Eating earlier around 5:30 so sguars better in AM; if eats late, AM sugar higher. Sleeps by 7PM usually. 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 Stopped buying the sweets so won't be tempted to eat that when gets snacky. ? Patient denies CP, SOB, JACK, blurred vision, dizziness or lightheadedness ? Patient denies symptoms of hypoglycemia (sweating, anxiety, palpitations, hunger, and tremor) ? Patient denies symptoms hyperglycemia (polyuria, polydipsia) ? Patient denies potential medication adverse effects ALLERGIES Allergen Reactions - Bentyl [Dicyclomine] Mental Status Change difficulty thinking Caused her to take extra insulin because did not remember taking it - Byetta [Exenatide] GI Upset - Cyclobenzaprine Other: See Comments Vaginal itich - Doxycycline Vomiting - Metformin GI Upset - Neurontin [Gabapent* Intolerance bad dreams - Nsaids (Non-Steroid* GI Upset Avoids all NSAIDs because upsets her stomach PAST MEDICAL HISTORY Diagnosis Date - Allergic rhinitis, cause unspecified 03/31/2005 - Chronic hepatitis C without hepatic coma (HCC) 03/27/2017 failed to respond to treatment started March 2016; Genotype 2; based on history-- from blood transfusion - Coronary atherosclerosis of unspecified type of vessel, [place] or graft 12/12/2006 50% lesion in LAD as seen on heart cath 11/29/2006 - Esophageal reflux - Glaucoma 07/29/10 chronic angle closure glaucoma (treated by Dr. 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 as needed.Earliest Fill Date: 07/14/17 triamcinolone acetonide (KENALOG) 0.5 % cream Apply 1 application to affected area twice daily. For rash/itching. Apply sparingly. Avoid face/skin fold. blood sugar diagnostic (BLOOD GLUCOSE TEST) test strip Test blood sugar(s) 3 to 4 times daily as directed. Dx: Type 2 DM - Uncontrolled E11.65 Insulin: Yes nitroglycerin sublingual (NITROQUICK) 0.4 mg SL tablet Dissolve 1 tablet under the tongue as needed. DISSOLVE ON TONGUE FOR CHEST PAIN. IF NO PAIN RELIEF, CALL 911 [id number]-[id number]-MDVPHSWV 3.5 MG/ML-10,000 UNIT/ML-0.1% EYE DROPS lisinopril (ZESTRIL, PRINIVIL) 20 mg tablet Take 1 tablet by mouth twice daily. insulin detemir (LEVEMIR FLEXTOUCH) 100 unit/mL (3 mL) inpn injection Inject 15 units subcutaneously every morning;inject 10 units subcutaneously every evening. Adjust as directed insulin aspart (NOVOLOG) 100 unit/mL inpn Take 10 units with meals as directed (east 2 to 3 meals per day). Adjust as directed. diclofenac (FLECTOR) 1.3 % topical patch Apply 1 application to affected area. On for 12 hours at a time codeine-guaiFENesin (ROBITUSSIN AC) 10-100 mg/5 mL syrup Take 5-10 mL by mouth four times daily as needed for Cough. May cause drowsiness. blood sugar diagnostic (ONETOUCH ULTRA TEST) test strip Test blood sugar(s) 4 times daily. Dx: Type 2 DM - Uncontrolled E11.65 Insulin: Yes insulin needles, DISPOSABLE, (PEN NEEDLE) 31 gauge x 5/16 ndle 1 Each four times daily. Ciclopirox (LOPROX) 8 % solution Apply 1 application to affected area daily at bedtime. Lancets (FINGERSTIX LANCETS) Misc Misc use as directed No current facility-administered medications for this visit. GLYCEMIC CONTROL: ? Glucometer present at visit: yes ? SMBG?s: Date Fasting AM 2 hr PP Before Lunch 2 hr PP Before Dinner 2 hr PP Bedtime 09/01 146 08/31 142 08/30 183 08/29 163 08/28 183 08/27 86 08/26 174 ? Hypoglycemia: no VITALS: BP 134/88 Pulse 76 Last 3 Encounter BP Readings: Date: BP: 08/04/2017 187/84 06/07/2017 132/88 05/26/2017 130/80 Wt: 78 kg (172 lb) BMI: 32.50 kg/(m2) LABS Lab Results Component Value Date HBA1C 9.4 06/06/2017 HBA1C 8.6 04/04/2017 HBA1C 8.9 12/22/2016 CMP: Glucose 217 06/06/2017 BUN 13 06/06/2017 Creatinine 0.81 06/06/2017 Sodium 139 06/06/2017 Potassium 4.4 06/06/2017 Chloride 100 06/06/2017 CO2 27 06/06/2017 Protein, Total 7.3 06/06/2017 Albumin 3.9 06/06/2017 Calcium 9.2 06/06/2017 Alkaline Phosphatase 66 06/06/2017 Bilirubin, Total 0.6 06/06/2017 AST 18 06/06/2017 ALT 20 06/06/2017 Estimated Creatinine Clearance: 62.9 mL/min (based on Cr of 0.81). Last Lipid Panel Lab Results Component Value Date CHOL 201 08/21/2016 Lab Results Component Value Date HDL 52 08/21/2016 Lab Results Component Value Date LDL 129 08/21/2016 Lab Results Component Value Date TG 101 08/21/2016 Albumin/Creat Ratio (mg/g) Date Value 06/06/2017 2215 (H) ASSESSMENT/PLAN: 1. 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 Could consider increase in evening Levemir dose in the future. 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 Patient is scheduled to see PCP 10/18. Patient to return to clinic for PharmD f/u as requested by patient or PCP. Patient verbalized understanding of instructions. Dr. Galvan and Yoli Lan PharmD The patient was seen, chart reviewed and I concur with the above evaluation and plan. Reviewed with [facility] group management of DM. Abrahan Galvan MD After [facility], saw patient one on one Right sided abdomen pain with tenderness to light touch. Even light clothing can cause pain. Burning and stabbing pain. Diazepam helps. The hepatitis med was taken right before developed this pain. Has had workup for the pain when was so severe and went to ER. CT scan at [facility] showed normal study aside from lower DDD and atherosclerosis of aorta. Can't eat too much or pain increased. Tender in dermatome from lower thoracic to belly button on right. Skin normal. No abdominal mass. Discussed management Encounter Diagnosis ICD-10-CM 1. 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 ASHD (arteriosclerotic heart disease) I25.10 3. Other hyperlipidemia E78.4 4. Hypertension, essential I10 5. Radiculopathy of thoracolumbar region M54.15 Stress test ordered given risk factors for CAD. Further evaluation and treatment as indicated. Suspect radiculopathy given skin sensitivity. Above issues addressed with patient. Patient involved in shared decision making for management of her medical issues. History and medications reviewed. Epic updated as needed Refills taken care of and meds adjusted as indicated after reviewed history, exam and labs. Health Maintenance reviewed. Updated record and/or ordered tests as recorded. Encouraged on efforts at healthy diet and regular exercise and adequate sleep. Abrahan Galvan MD CNOV Observed: 09/01/2017 Status: COMPLETED Source: [place] 10:00 AM [facility] REPOSITORY Office Visit (INTMWS) TORI LORD ([id number]) 1950 F Date Time Provider Department 09/01/17 10:00 AM ABRAHAN GALVAN During your visit today, we recorded the following information about you: Pulse Blood pressure 76/minute 134/88 Abrahan Galvan MD 09/18/2017 9:20 PM Signed Patient presents for DM SMA with Dr. Galvan and Yoli Lan, ScottD GOALS: A1c ANDlt; 8% Tori Lord is a 67 year old female was last seen by PCP, Dr. Galvan on 08/04/17. At last PCP visit patient was continued on current regimen. Has routine with taking PM meds so not missing doses. Eating earlier around 5:30 so sguars better in AM; if eats late, AM sugar higher. Sleeps by 7PM usually. 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 Stopped buying the sweets so won't be tempted to eat that when gets snacky. ? Patient denies CP, SOB, JACK, blurred vision, dizziness or lightheadedness ? Patient denies symptoms of hypoglycemia (sweating, anxiety, palpitations, hunger, and tremor) ? Patient denies symptoms hyperglycemia (polyuria, polydipsia) ? Patient denies potential medication adverse effects ALLERGIES Allergen Reactions - Bentyl [Dicyclomine] Mental Status Change difficulty thinking Caused her to take extra insulin because did not remember taking it - Byetta [Exenatide] GI Upset - Cyclobenzaprine Other: See Comments Vaginal itich - Doxycycline Vomiting - Metformin GI Upset - Neurontin [Gabapent* Intolerance bad dreams - Nsaids (Non-Steroid* GI Upset Avoids all NSAIDs because upsets her stomach PAST MEDICAL HISTORY Diagnosis Date - Allergic rhinitis, cause unspecified 03/31/2005 - Chronic hepatitis C without hepatic coma (HCC) 03/27/2017 failed to respond to treatment started March 2016; Genotype 2; based on history-- from blood transfusion - Coronary atherosclerosis of unspecified type of vessel, [place] or graft 12/12/2006 50% lesion in LAD as seen on heart cath 11/29/2006 - Esophageal reflux - Glaucoma 07/29/10 chronic angle closure glaucoma (treated by Dr. 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 as needed.Earliest Fill Date: 07/14/17 triamcinolone acetonide (KENALOG) 0.5 % cream Apply 1 application to affected area twice daily. For rash/itching. Apply sparingly. Avoid face/skin fold. blood sugar diagnostic (BLOOD GLUCOSE TEST) test strip Test blood sugar(s) 3 to 4 times daily as directed. Dx: Type 2 DM - Uncontrolled E11.65 Insulin: Yes nitroglycerin sublingual (NITROQUICK) 0.4 mg SL tablet Dissolve 1 tablet under the tongue as needed. DISSOLVE ON TONGUE FOR CHEST PAIN. IF NO PAIN RELIEF, CALL 911 [id number]-[id number] 3.5 MG/ML-10,000 UNIT/ML-0.1% EYE DROPS lisinopril (ZESTRIL, PRINIVIL) 20 mg tablet Take 1 tablet by mouth twice daily. insulin detemir (LEVEMIR FLEXTOUCH) 100 unit/mL (3 mL) inpn injection Inject 15 units subcutaneously every morning;inject 10 units subcutaneously every evening. Adjust as directed insulin aspart (NOVOLOG) 100 unit/mL inpn Take 10 units with meals as directed (east 2 to 3 meals per day). Adjust as directed. diclofenac (FLECTOR) 1.3 % topical patch Apply 1 application to affected area. On for 12 hours at a time codeine-guaiFENesin (ROBITUSSIN AC) 10-100 mg/5 mL syrup Take 5-10 mL by mouth four times daily as needed for Cough. May cause drowsiness. blood sugar diagnostic (plista ULTRA TEST) test strip Test blood sugar(s) 4 times daily. Dx: Type 2 DM - Uncontrolled E11.65 Insulin: Yes insulin needles, DISPOSABLE, (PEN NEEDLE) 31 gauge x 5/16ANDquot; ndle 1 Each four times daily. Ciclopirox (LOPROX) 8 % solution Apply 1 application to affected area daily at bedtime. Lancets (FINGERSTIX LANCETS) Misc Misc use as directed No current facility-administered medications for this visit. GLYCEMIC CONTROL: ? Glucometer present at visit: yes ? SMBG?s: Date Fasting AM 2 hr PP Before Lunch 2 hr PP Before Dinner 2 hr PP Bedtime 09/01 146 08/31 142 08/30 183 08/29 163 08/28 183 08/27 86 08/26 174 ? Hypoglycemia: no VITALS: BP 134/88 Pulse 76 Last 3 Encounter BP Readings: Date: BP: 08/04/2017 187/84 06/07/2017 132/88 05/26/2017 130/80 Wt: 78 kg (172 lb) BMI: 32.50 kg/(m2) LABS Lab Results Component Value Date HBA1C 9.4 06/06/2017 HBA1C 8.6 04/04/2017 HBA1C 8.9 12/22/2016 CMP: Glucose 217 06/06/2017 BUN 13 06/06/2017 Creatinine 0.81 06/06/2017 Sodium 139 06/06/2017 Potassium 4.4 06/06/2017 Chloride 100 06/06/2017 CO2 27 06/06/2017 Protein, Total 7.3 06/06/2017 Albumin 3.9 06/06/2017 Calcium 9.2 06/06/2017 Alkaline Phosphatase 66 06/06/2017 Bilirubin, Total 0.6 06/06/2017 AST 18 06/06/2017 ALT 20 06/06/2017 Estimated Creatinine Clearance: 62.9 mL/min (based on Cr of 0.81). Last Lipid Panel Lab Results Component Value Date CHOL 201 08/21/2016 Lab Results Component Value Date HDL 52 08/21/2016 Lab Results Component Value Date LDL 129 08/21/2016 Lab Results Component Value Date TG 101 08/21/2016 Albumin/Creat Ratio (mg/g) Date Value 06/06/2017 2215 (H) ASSESSMENT/PLAN: 1. 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 Could consider increase in evening Levemir dose in the future. 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 Patient is scheduled to see PCP 10/18. Patient to return to clinic for PharmD f/u as requested by patient or PCP. Patient verbalized understanding of instructions. Dr. Galvan and Yoli Lan PharmD The patient was seen, chart reviewed and I concur with the above evaluation and plan. Reviewed with [facility] group management of DM. Abrahan Galvan MD After [facility], saw patient one on one Right sided abdomen pain with tenderness to light touch. Even light clothing can cause pain. Burning and stabbing pain. Diazepam helps. The hepatitis med was taken right before developed this pain. Has had workup for the pain when was so severe and went to ER. CT scan at [facility] showed normal study aside from lower DDD and atherosclerosis of aorta. Can't eat too much or pain increased. Tender in dermatome from lower thoracic to belly button on right. Skin normal. No abdominal mass. Discussed management Encounter Diagnosis ICD-10-CM 1. 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 ASHD (arteriosclerotic heart disease) I25.10 3. Other hyperlipidemia E78.4 4. Hypertension, essential I10 5. Radiculopathy of thoracolumbar region M54.15 Stress test ordered given risk factors for CAD. Further evaluation and treatment as indicated. Suspect radiculopathy given skin sensitivity. Above issues addressed with patient. Patient involved in shared decision making for management of her medical issues. History and medications reviewed. Epic updated as needed Refills taken care of and meds adjusted as indicated after reviewed history, exam and labs. Health Maintenance reviewed. Updated record and/or ordered tests as recorded. Encouraged on efforts at healthy diet and regular exercise and adequate sleep. MD Abrahan Orta MD 09/01/2017 11:46 AM Signed Try lidoderm patch to see if helps with the pinched nerve pain. Try TENS for the mid-back to see if helps as well. Consider physical therapy or massotherapy for the lower thoracic spine (part attached to the rib cage). Heat or cold as needed. Jamb Cutter: Consent Form ID: [id number] 09/01/2017 9:52 AM Author: MAGO PROVIDER Signed by [facility] PROVIDER on 09/09/2017 at 8:49 AM Document text: Display document [id number] only Referring Provider: MANDO DAVENPORT ([facility]) [[id number]] Allergies As of Date: 09/01/2017 Noted Allergy Reaction BENTYL (DICYCLOMINE) 12/30/2016 1 - Mental Status Change Comments: difficulty thinking Caused her to take extra insulin because did not remember taking it BYETTA (EXENATIDE) 01/03/2012 8 - GI Upset CYCLOBENZAPRINE 06/28/2011 14 - Other: See Comments Comments: Vaginal itich DOXYCYCLINE 03/22/2013 11 - Vomiting METFORMIN 03/31/2005 8 - GI Upset NEURONTIN (GABAPENTIN) 10/14/2006 5 - Intolerance Comments: bad dreams NSAIDS (NON-STEROIDAL ANTI-INFLAM*10/23/2007 8 - GI Upset Comments: Avoids all NSAIDs because upsets her stomach Date Reviewed: 09/01/2017 Reviewed by: Nikki Mata RN - Fully Assessed Reason for Visit: SMA DM [Other] Primary Visit Diagnosis: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) [E11.65, E11.39, H42] Other Visit Diagnoses:ASHD (arteriosclerotic heart disease) [I25.10] Other hyperlipidemia [E78.4] Hypertension, essential [I10] Radiculopathy of thoracolumbar region [M54.15] Order(s):NM CARDIAC PERF STRESS/EXERCISE [[id number]] Order #: [id number] Prescriptions as of 09/01/2017 Sig: SIMVASTATIN 20 MG TABLET take 1 tablet by mouth at bed* HYDROCODONE 7.5 MG-ACETAMINOP* Take 1-2 tablets by mouth onc* TRIAMCINOLONE ACETONIDE 0.5 %* Apply 1 application to affect* BLOOD SUGAR DIAGNOSTIC STRIPS Test blood sugar(s) 3 to 4 ti* NITROGLYCERIN 0.4 MG SUBLINGU* Dissolve 1 tablet under the t* [id number]-GHAOLBTOC-GJHHPTKO 3* LISINOPRIL 20 MG TABLET Take 1 tablet by mouth twice * INSULIN DETEMIR (U-100) 100 U* Inject 15 units subcutaneousl* INSULIN ASPART U-100 100 UNI* Take 10 units with meals as d* DICLOFENAC EPOLAMINE 1.3 % TR* Apply 1 application to affect* CODEINE 10 MG-GUAIFENESIN 100* Take 5-10 mL by mouth four ti* BLOOD SUGAR DIAGNOSTIC STRIPS Test blood sugar(s) 4 times d* PEN NEEDLE, DIABETIC 31 GAUGE* 1 Each four times daily. CICLOPIROX 8 % TOPICAL SOLUTI* Apply 1 application to affect* * FINGERSTIX LANCETS use as directed Medication notes this encounter NEURONTIN 300 MG CAPSULE >> bArahan Galvan MD 09/01/2017 11:43 AM >> ABRAHAN GALVAN MD [facility] Sep 01, 2017 11:43 AM Made her feel weird Problem List As Of Date 09/01/2017 Noted Resolved TRIGGER FINGER [M65.30] INVALID FOR* More... Essential hypertension [I10] INVALID FOR* More... Esophageal reflux [K21.9] INVALID FOR*01/31/2013 More... ALLERGIC RHINITIS NOS [J30.9] INVALID FOR* PERS HX OF DISEASES NEC [V13.8] INVALID FOR* More... TENOSYNOV HAND/WRIST NEC [M65.849, M65.839] INVALID FOR* JOINT CONTRACTURE-HAND [M24.549] INVALID FOR* CORONARY ATHEROSCLER UNSPEC VESSEL [I25.10] INVALID FOR* More... 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 Acute back pain with sciatica [M54.40] INVALID FOR* More... 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 Other instructions from your clinician: Try lidoderm patch to see if helps with the pinched nerve pain. Try TENS for the mid-back to see if helps as well. Consider physical therapy or massotherapy for the lower thoracic spine (part attached to the rib cage). Heat or cold as needed. Classic SmartForms filed during this visit: Extended Vitals Encounter Status:Closed by ABRAHAN GALVAN MD on 09/18/17 CBC AND DIFFERENTIAL Collected: 08/26/2017 Status: F Source: [place] 8:52 AM [facility] RE[facility] TYPE CODE TESTS RESULT OUT OF REFERENCE UNITS RANGE LAB WBC 3.70-11.00 k/uL WBC 9.03 LAB RBC 3.90-5.20 m/uL RBC High 5.49 LAB HGB 11.5-15.5 g/dL Hemoglobin 14.2 LAB HCT 36.0-46.0 % High Hematocrit 47.2 LAB MCV 80.0-100.0 fL MCV 86.0 LAB MCH 26.0-34.0 pG Low MCH 25.9 LAB MCHC 30.5-36.0 g/dL Low MCHC 30.1 LAB RDWCV 11.5-15.0 % RDW-CV 14.2 LAB PLTCT 150-400 k/uL Platelet Count 200 LAB MPV 9.0-12.7 fL MPV 11.7 LAB ANEUT % Neut% 45.2 LAB AANEUT 1.45-7.50 k/uL Abs Neut 4.09 LAB ALYMP % Lymph% 43.9 LAB AALYMP 1.00-4.00 k/uL Abs Lymph 3.96 LAB AMONO % Lee% 8.3 LAB AAMONO <0.87 k/uL Abs Lee 0.75 LAB AEOS % Eosin% 1.9 LAB AAEOS <0.46 k/uL Abs Eosin 0.17 LAB ABASO % Baso% 0.7 LAB AABASO <0.11 k/uL Abs Baso 0.06 LAB AUNRBC 0 /100 WBC NRBCs 0.0 LAB ABNRBC <0.01 k/uL Absolute nRBC <0.01 LAB DTYP DTYPE Auto Diff Performed By: #### CBCDIF, WSR, CRP, SYPHGX, LYMEWB #### [facility] [address] [id number] SED RATE WESTERGREN Collected: 08/26/2017 Status: F Source: [place] 8:52 AM [facility] REPOSITORY TYPE CODE TESTS RESULT OUT OF REFERENCE UNITS RANGE LAB WSR 0-20 mm/hr Sed Rate Westergren 17 Performed By: #### CBCDIF, WSR, CRP, SYPHGX, LYMEWB #### [place] [address] C-REACTIVE PROTEIN Collected: 08/26/2017 Status: F Source: [place] 8:52 AM [facility] REPOSITORY TYPE CODE TESTS RESULT OUT OF REFERENCE UNITS RANGE LAB CRP <0.9 mg/dL High C-Reactive 1.0 Protein Performed By: #### CBCDIF, WSR, CRP, SYPHGX, LYMEWB #### [place] [address] SYPHILIS IGG WITH Collected: 08/26/2017 Status: F Source: [facility] 8:52 AM [facility] REPOSITORY TYPE CODE TESTS RESULT OUT OF REFERENCE UNITS RANGE LAB SYPHQL Nonreactive Syphilis IgG, Nonreactive Qual Result Comment: In conjunction with this result, the immune status of the patient should be evaluated based on their clinical status, related risk factors, and other diagnostic test results. LAB SYPHLG AI Syphilis IgG <0.2 Result Comment: Antibody index is interpreted as follows: Non reactive SPECIMENS <=0.8 Weak reactive SPECIMENS 0.9 to 5.9 Reactive SPECIMENS >=6.0 Performed By: #### CBCDIF, WSR, CRP, SYPHGX, LYMEWB #### [id number] [place], [place] [address] LYME AB PANEL WBLOT Collected: 08/26/2017 Status: F Source: [place] 8:52 AM [facility] RE[facility]ITORY TYPE CODE TESTS RESULT OUT OF REFERENCE UNITS RANGE LAB LYMEGG Negative Lyme Negative IgG WBlot LAB LYMGBD Lyme p41 IgG Bands Result Comment: CDC criteria for a positive Western blot are the presence of >= 5 bands for IgG. LAB LYMEMM Negative Negative Lyme IgM WBlot LAB LYMMBD p41 Lyme IgM Bands Result Comment: CDC criteria for a positive Western blot are the presence of >= 2 bands for IgM. LAB LYMITR No evidence of antibodies to No evidence of Borrelia Lyme Interp antibodies to burgdorferi. Borrelia burgdorferi. Performed By: #### CBCDIF, WSR, CRP, SYPHGX, LYMEWB #### [facility] [address] [place], [place] [address] ENDOCRINOLOGY VISIT Observed: 08/14/2017 Status: F Source: [facility] REPORT 12:41 PM [facility] REPOSITORY [facility] [address] [place] [address]. [address] [place] [address] OFFICE VISIT Date of Service: 08/09/17 MR#: [id number] Acct: [id number] Name: OTRI LORD Rep #: [id number] : 1950 Provider: Sheryl Lopez NP Age/Sex: 66/F Location: [facility] Status: Signed HPI History of present illness Tori Lord is a 66 year old female with diabetes type 2. Diagnosed in 1997. Continues on levemir 17 units in am and 8 units in pm. Also continues on meal insulin novolog 10 units each meal. A1c down to 7.4 in April 2017. Improved from previous 8.3. Pt denies difficulty with injections or self monitoring of BG. Denies any signs of infection or irritation at site of injections. Reports taking insulin as directed Since our last visit she denies excessive thirst, increased frequency of urination, chest pain or dyspnea. Follows a healthy diet, Is compliant with medication and is tolerating without side effects. At time of visit: -Pt denies symptoms of hypertensive emergency (CP,SOB,JACK, or blurred vision) and hypotension(dizziness or lightheadedness) -Pt denies symptoms of hypoglycemia ( sweaty, confusion, anxiety, tremor, hunger, palpitations) and hyperglycemia ( polydipsia, polyuria) -Pt denies potential medication adverse effect. Hypoglycemia Aware of hypoglycemia: yes Able to self treat low BG: Yes Frequent low Blood sugar: No Has supply of glucagon: Yes SMBG 2-4 times daily 114-169 Diet 3 meals Low sodium Does not carb count Type: type 2 Weight and fatigue symptoms: Denies snoring Cardiopulmonary symptoms: Denies chest pain at rest, dyspnea on exertion, lightheadedness or myalgias GI symptoms: Denies constipation, diarrhea, nausea/dyspepsia or vomiting Other symptoms: Reports change in vision (SWELLING BEHIND EYE HAS GONE DOWN) Self monitoring: Yes Glucometer type: one touch Dietary compliance: Diabetes: good Diabetes education in past year: Yes Glucose testing: demonstrates correct use of meter Sick day education - understands ketone testing: Yes Exam Const General: comfortable, no acute distress Nutritional Appearance: overweight Orientation: oriented x3 HENMT Head: normal to inspection, atraumatic Ears: hearing grossly normal bilaterally Mouth: oral mucosae normal, moist mucous membranes Teeth and gingiva: dentition normal Eyes General: appearance normal, both eyes and all related structures Conjunctivae: conjunctivae normal Pupils: PERRL Neck Neck: normal visual inspection, full ROM Neck mass: No Thyroid: thyroid normal Chest Chest palpation AND inspection: deferred Resp Effort AND Inspection: normal respiratory effort, able to speak in complete sentences, symmetric chest movement Auscultation: Bilateral: Clear to Auscultation Cardio Rate: regular rate Rhythm: regular rhythm Heart Sounds: S1 normal, S2 normal GI Inspection: normal to inspection Auscultation: normal bowel sounds Palpation: soft General: deferred Musc Cervical Spine: cervical ROM normal Skin General: no rashes or lesions noted Wounds: no wounds Diabetic Foot Pulses: L dorsalis pedis pulse: normal, R dorsalis pedis pulse: normal Monofilament test: Left foot: normal, Right foot: normal Neuro General: gait normal Cognition: normal cognition Speech: speech normal Gait: normal gait Extrem General: normal to inspection, full ROM Psych Appearance: well kempt Mental Status: mental status grossly normal Speech and Movement: speech and movement normal Thought Content: normal Judgment: judgment good Intake Vital Signs08/09/17 Height 5 ft 1 in 08/09/17 Weight: 175 lb 08/09/17 Body Mass Index (BMI) 33.0 08/09/17 Blood Pressure 134/80 08/09/17 Blood Pressure Location Lt popliteal Intake Visit Reasons: 3 M FU Nurse Discharge Planner Required: No Accompanied by: Self Is patient in pain?: No Allergies metformin Allergy (Verified 08/09/17 10:47) Unknown Medications Diazepam [Valium] 5 mg PO DAILY 04/15/16 [History Confirmed 08/09/17] Lisinopril [Zestril] 20 mg PO BID 04/15/16 [History Confirmed 08/09/17] Simvastatin [Zocor] 20 mg PO QHS 04/15/16 [History Confirmed 08/09/17] blood sugar diagnostic strips See Dose Instructions .ROUTE .MEDSUPPLY #20 ea 07/26/17 [History Confirmed 08/09/17] hydrocodone 7.5 mg-acetaminophen 300 mg tablet 1 tab PO Q6H PRN 07/26/17 [History Confirmed 08/09/17] insulin aspart 100 unit/mL subcutaneous pen 10 unit SC TID ml 07/26/17 [History Confirmed 08/09/17] insulin detemir 100 unit/mL subcutaneous solution See Label Instructions SC BID 07/26/17 [History Confirmed 08/09/17] Is last menstrual period known: No Post menopausal: Yes Patient : No Nurse's Note: DIABETES TYPE 2 DX : 1998 LAST EXACERBATION : DKA : NEVER HYPOGLYCEMIC EPISODE : NEVER ER VISIT : NEVER BLOOD SUGARS : LOW : 117 HIGH : 182 11:25 bp RECHECK 162/100 PFSH Medical History Back problem (Acute) Corneal injury (Acute) Diabetes type 2, controlled (Acute) Hepatitis (Acute) Right wrist pain (Acute) Surgical History History of total abdominal hysterectomy (Acute) S/P colonoscopy (Acute) Family History Mother Arthritis Father Arthritis Social History Smoking Status: Former smoker second hand exposure: No alcohol intake: never substance use type: does not use ROS Const Constitutional: No anorexia, body ache, chills, fatigue, fever(s), frequent falls, decreased energy, malaise, night sweats, weakness, weight change, sleep problems, abnormal sleep pattern, change in appetite, other, headache(s), snoring or excessive sweating Eyes Eyes: Positive for change in vision (SWELLING BEHIND EYE HAS GONE DOWN); no double vision, discharge, dry eyes, bulging eyes, floaters, visual disturbances, eye pain, light sensitivity, spots in vision, tunnel vision or other ENT ENT: No abnormal hearing, ear pain, ear discharge, ear pressure, hearing loss, tinnitus, dizziness/vertigo, balance problems, nosebleed/epistaxis, nasal congestion, nasal obstruction, nose pain, sinus pressure, sinus pain, nasal discharge, post nasal drip, headache(s), facial pain, dental pain, dry mouth, bad breath, hoarseness, lip swelling, mouth lesions, mouth pain, sore throat, tongue swelling, throat swelling, other, difficulty swallowing or neck pain Resp Respiratory: No cough, change in phlegm color, chest congestion, excessive phlegm production, hemoptysis, pain on inspiration, shortness of breath, pain with cough, snoring, stridor, wheezing or other Cardio Cardiology: No chest pain at rest, chest pain with exertion, leg pain with exertion, excessive sweating, shortness of breath, dyspnea on exertion, generalized swelling, irregular heart rhythm, lightheadedness, orthopnea, radiating jaw, neck or arm pain, fast heart rate, slow heart rate, palpitations or other Gastro GI: Positive for abdominal pain; no belching, bloating, change in bowel habits, change in stool character, coffee ground emesis, constipation, cramping, diarrhea, heartburn, difficulty swallowing, feeling full early, excessive flatus, incontinent of stools, Vomiting blood/hematemesis, blood in stool, loose stools, Black,tarry stools, nausea/dyspepsia, pain with swallowing, vomiting or other Genitourinary-Female: No difficulty urinating, burning urination, painful urination, urinary incontinence, urinary frequency, urinary urgency, urinary hesitancy, urinary retention, blood in urine, Frequent nighttime urination/ nocturia, post void dribbling, suprapubic fullness, side pain, sexual problems, genital lesions, genital itching, hot flashes, abnormal periods, abnormal vaginal bleeding, absent period, painful periods, light periods, heavy periods, difficulty getting , painful intercourse, pelvic pain, vaginal dryness, vaginal odor, Vaginal Itching or other Musc Musculoskeletal: No abnormal walking, joint pain, back pain, deformity, joint swelling, limited range of motion, loss of height, muscle cramps, muscle weakness, decreased muscle mass, body aches, neck pain, numbness, radiating pain into limb, stiffness, tingling or other Neuro Neurology: No frequent falls, weakness, visual disturbances, abnormal hearing, headache(s), abnormal walking, numbness or tingling Psych Psychiatric: No abnormal sleep pattern, No change in appetite Endo Endocrine: No fatigue, other or excessive sweating Aller/Imm Allergy/Immunologic: No lip swelling, tongue swelling, throat swelling or wheezing Assessment AND Plan Problems 1. 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 HTN (hypertension) I10 3. Mixed hyperlipidemia E78.2 Plan Detail Additional Comments 1. Please schedule follow up in 3 months. 2. Lab work one week before appointment. 3. Discussed importance of regular exercise and recommend starting or continuing a regular exercise program for good health. 4. The patient was encouraged to lose weight for good health 5. The importance of monitoring blood sugar regularly was reviewed. 6. The importance of monitoring the HBA1c level regularly was reviewed. 7. The importance of prper foot care and regularly checking feet to prevent sores and loss of limbs was reviewed. 8. The importance of keeping BP at or below 130/80 to prevent stroke, heart attacks, kidney failure, blindness was reviewed. Spent approximately 30 minutes with patient with over 50% of time spent in discussion and counseling regarding medication adjustment, symptoms and treatment of hypoglycemia, diet adherence, and checking BG before driving. Coding Level of Care Code Off vis,est,level 4 Diagnoses Type 2 diabetes mellitus without complication, unspecified nursing home insulin use status E11.9 Diabetes mellitus type: type 2 Diabetes mellitus complication status: without complication Diabetes mellitus nursing home insulin use: unspecified intermediate teacher insulin use status HTN (hypertension) I10 Hypertension type: essential hypertension Mixed hyperlipidemia E78.2 Hyperlipidemia type: mixed hyperlipidemia Time Spent (min) 30 08/14/17 1241 <Electronically signed by Sheryl JONES> Date Sheryl JONES Cosigner Signature: Date (if applicable) CC: PROGRESS Observed: 08/04/2017 Status: COMPLETED Source: [place] 10:00 AM [facility] REPOSITORY HNO ID: [id number] Author: Abrahan Galvan Service: (none) Author Type: Physician Type: Progress Notes Filed: 2017 12:38 AM Note Text: Patient presents for DM SMA with Dr. Galvan and Yoli Lan, PharmD GOALS: A1c < 8% Tori Lord is a 66 year old female was last seen by PCP, Dr. Galvan on 06/23/17. At last PCP visit patient was continue don current regimen. Last time sugars up to 200 to 300's. Brought meter to show that sugars were back down. Started watching diet. Hunger door closed. Sugars down to 80's to 130's. Did not feel low when was 80's. Meter showed 114 to 177 range fasting. 83 was 1/5. Noted following with eye doctor closely because of DM eye issues--improved sugars helped with eye issues already. Insulin 10 units with meals and Levemir 15 units just in AM. ? Patient denies CP, SOB, JACK, blurred vision, dizziness or lightheadedness ? Patient denies symptoms of hypoglycemia (sweating, anxiety, palpitations, hunger, and tremor) ? Patient denies symptoms hyperglycemia (polyuria, polydipsia) ? Patient denies potential medication adverse effects ALLERGIES Allergen Reactions - Bentyl [Dicyclomine] Mental Status Change difficulty thinking Caused her to take extra insulin because did not remember taking it - Byetta [Exenatide] GI Upset - Cyclobenzaprine Other: See Comments Vaginal itich - Doxycycline Vomiting - Metformin GI Upset - Neurontin [Gabapent* Intolerance bad dreams - Nsaids (Non-Steroid* GI Upset Avoids all NSAIDs because upsets her stomach PAST MEDICAL HISTORY Diagnosis Date - Allergic rhinitis, cause unspecified 03/31/2005 - Chronic hepatitis C without hepatic coma (HCC) 03/27/2017 failed to respond to treatment started March 2016; Genotype 2; based on history-- from blood transfusion 1970s - Coronary atherosclerosis of unspecified type of vessel, [place] or graft 12/12/2006 50% lesion in LAD as seen on heart cath 11/29/2006 - Esophageal reflux - Glaucoma 07/29/10 chronic angle closure glaucoma (treated by Dr. 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 as needed.Earliest Fill Date: 07/14/17 diazePAM (VALIUM) 5 mg tablet Take 0.5-1 tablets by mouth once daily as needed for up to 30 days. triamcinolone acetonide (KENALOG) 0.5 % cream Apply 1 application to affected area twice daily. For rash/itching. Apply sparingly. Avoid face/skin fold. blood sugar diagnostic (BLOOD GLUCOSE TEST) test strip Test blood sugar(s) 3 to 4 times daily as directed. Dx: Type 2 DM - Uncontrolled E11.65 Insulin: Yes nitroglycerin sublingual (NITROQUICK) 0.4 mg SL tablet Dissolve 1 tablet under the tongue as needed. DISSOLVE ON TONGUE FOR CHEST PAIN. IF NO PAIN RELIEF, CALL 911 [id number] 3.5 MG/ML-10,000 UNIT/ML-0.1% EYE DROPS lisinopril (ZESTRIL, PRINIVIL) 20 mg tablet Take 1 tablet by mouth twice daily. insulin detemir (LEVEMIR FLEXTOUCH) 100 unit/mL (3 mL) inpn injection Inject 15 units subcutaneously every morning;inject 10 units subcutaneously every evening. Adjust as directed insulin aspart (NOVOLOG) 100 unit/mL inpn Take 10 units with meals as directed (east 2 to 3 meals per day). Adjust as directed. diclofenac (FLECTOR) 1.3 % topical patch Apply 1 application to affected area. On for 12 hours at a time codeine-guaiFENesin (ROBITUSSIN AC) 10-100 mg/5 mL syrup Take 5-10 mL by mouth four times daily as needed for Cough. May cause drowsiness. blood sugar diagnostic (HandupTOUCH ULTRA TEST) test strip Test blood sugar(s) 4 times daily. Dx: Type 2 DM - Uncontrolled E11.65 Insulin: Yes insulin needles, DISPOSABLE, (PEN NEEDLE) 31 gauge x 5/16 ndle 1 Each four times daily. Ciclopirox (LOPROX) 8 % solution Apply 1 application to affected area daily at bedtime. Lancets (FINGERSTIX LANCETS) Misc Misc use as directed No current facility-administered medications for this visit. GLYCEMIC CONTROL: ? Glucometer present at visit: no ? Hypoglycemia: denies VITALS: BP 187/84 Pulse 73 Resp 16 Wt 78 kg (172 lb) BMI 32.5 kg/m2 Last 3 Encounter BP Readings: Date: BP: 06/07/2017 132/88 05/26/2017 130/80 05/03/2017 140/72 Wt: 80.7 kg (178 lb) BMI: 33.63 kg/(m2) LABS Lab Results Component Value Date HBA1C 9.4 06/06/2017 HBA1C 8.6 04/04/2017 HBA1C 8.9 12/22/2016 CMP: Glucose 217 06/06/2017 BUN 13 06/06/2017 Creatinine 0.81 06/06/2017 Sodium 139 06/06/2017 Potassium 4.4 06/06/2017 Chloride 100 06/06/2017 CO2 27 06/06/2017 Protein, Total 7.3 06/06/2017 Albumin 3.9 06/06/2017 Calcium 9.2 06/06/2017 Alkaline Phosphatase 66 06/06/2017 Bilirubin, Total 0.6 06/06/2017 AST 18 06/06/2017 ALT 20 06/06/2017 Estimated Creatinine Clearance: 64.9 mL/min (based on Cr of 0.81). Last Lipid Panel Lab Results Component Value Date CHOL 201 08/21/2016 Lab Results Component Value Date HDL 52 08/21/2016 Lab Results Component Value Date LDL 129 08/21/2016 Lab Results Component Value Date TG 101 08/21/2016 Albumin/Creat Ratio (mg/g) Date Value 06/06/2017 2215 (H) PHARMACOTHERAPY ASSESSMENT/PLAN: 1. 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 Patient is scheduled to see PCP 09/01/17. Patient to return to clinic for PharmD f/u 09/01 [facility]. Patient verbalized understanding of instructions. Dr. Galvan and Yoli Lan PharmD The patient was seen, chart reviewed and I concur with the above evaluation and plan. Abrahan Galvan MD OBSOLETE Observed: 08/03/2017 Status: COMPLETED Source: [place] 12:00 AM [facility] REPOSITORY Refill (FAMPWS) TORI LORD ([id number]) 1950 F Date Time Provider Department 08/03/17 ABRAHAN GALVANWS During your visit today, we recorded the following information about you: Susu Hooks JENNY 08/03/2017 11:49 AM Signed Patient has been identified by name and date of : Yes Pharmacy phones for refill(s): Pending Prescriptions Disp Refills SIMVASTATIN 20 MG TABLET 90 tablet 1 Sig: take 1 tablet by mouth at bedtime MARIZA: Yes Date of last office visit in primary care: 06/23/2017 Appt scheduled w/PCP: 08/04/2017 Last 2 Encounter Wt Readings: Date: Wt: 06/23/2017 80.7 kg (178 lb) 06/07/2017 79.8 kg (176 lb) Previous labs/tests for medication: Cholesterol: HDL Cholesterol (mg/dL) Date Value 08/21/2016 52 LDL Cholesterol (mg/dL) Date Value 08/21/2016 129 ALT (U/L) Date Value 06/06/2017 20 Non HDL Cholesterol (mg/dL) Date Value 08/21/2016 149 Please advise. Thank you. Susu Hooks ANALYTICAL RESEARCH PROGRAM MANAGER Allergies As of Date: 08/03/2017 Noted Allergy Reaction BENTYL (DICYCLOMINE) 12/30/2016 1 - Mental Status Change Comments: difficulty thinking Caused her to take extra insulin because did not remember taking it BYETTA (EXENATIDE) 01/03/2012 8 - GI Upset CYCLOBENZAPRINE 06/28/2011 14 - Other: See Comments Comments: Vaginal itich DOXYCYCLINE 03/22/2013 11 - Vomiting METFORMIN 03/31/2005 8 - GI Upset NEURONTIN (GABAPENTIN) 10/14/2006 5 - Intolerance Comments: bad dreams NSAIDS (NON-STEROIDAL ANTI-INFLAM*10/23/2007 8 - GI Upset Comments: Avoids all NSAIDs because upsets her stomach Date Reviewed: 06/23/2017 Reviewed by: Rosita Simon Shear Setter - Fully Assessed Reason for Visit: Refill Request [94] Order(s):simvastatin (ZOCOR) 20 mg tablettake 1 tablet by mouth at bedtimeDisp: 90 tabletRfl: 1 Prescriptions as of 08/03/2017 Sig: SIMVASTATIN 20 MG TABLET take 1 tablet by mouth at bed* HYDROCODONE 7.5 MG-ACETAMINOP* Take 1-2 tablets by mouth onc* DIAZEPAM 5 MG TABLET Take 0.5-1 tablets by mouth o* TRIAMCINOLONE ACETONIDE 0.5 %* Apply 1 application to affect* BLOOD SUGAR DIAGNOSTIC STRIPS Test blood sugar(s) 3 to 4 ti* NITROGLYCERIN 0.4 MG SUBLINGU* Dissolve 1 tablet under the t* VQWSVFEK-PTTONWNMI-JILOWOIJ 3* LISINOPRIL 20 MG TABLET Take 1 tablet by mouth twice * INSULIN DETEMIR 100 UNIT/ML (* Inject 15 units subcutaneousl* INSULIN ASPART 100 UNIT/ML MINER* Take 10 units with meals as d* DICLOFENAC EPOLAMINE 1.3 % TR* Apply 1 application to affect* CODEINE 10 MG-GUAIFENESIN 100* Take 5-10 mL by mouth four ti* BLOOD SUGAR DIAGNOSTIC STRIPS Test blood sugar(s) 4 times d* PEN NEEDLE, DIABETIC 31 GAUGE* 1 Each four times daily. CICLOPIROX 8 % TOPICAL SOLUTI* Apply 1 application to affect* * FINGERSTIX LANCETS use as directed Problem List As Of Date 08/03/2017 Noted Resolved TRIGGER FINGER [M65.30] INVALID FOR* More... Essential hypertension [I10] INVALID FOR* More... Esophageal reflux [K21.9] INVALID FOR*01/31/2013 More... ALLERGIC RHINITIS NOS [J30.9] INVALID FOR* PERS HX OF DISEASES NEC [V13.8] INVALID FOR* More... TENOSYNOV HAND/WRIST NEC [M65.849, M65.839] INVALID FOR* JOINT CONTRACTURE-HAND [M24.549] INVALID FOR* CORONARY ATHEROSCLER UNSPEC VESSEL [I25.10] INVALID FOR* More... 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 Acute back pain with sciatica [M54.40] INVALID FOR* More... 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 Prescriptions ordered this encounter Disp Refills Start End SIMVASTATIN 20 MG TABLET 90 t* 1 08/03/2017 Sig: take 1 tablet by mouth at bedtime Medications Discontinued During This Encounter simvastatin (ZOCOR) 20 mg tablet 90 t* 1 02/08/2017 08/03/2017 Sig: take 1 tablet by mouth at bedtime Disc: Reason for discontinue is not on file. Encounter Status:Closed by ABRAHAN GALVAN MD on 08/03/17 ALLERGIES ALLERGIES DATE TYPE / NAME / CODE REACTION SEVERITY SOURCE CODE 07/21/2018 Drug aspirin/[id number](RX Nausea Unknown [place] Allergy/41 NORM) [facility] [id number]([facility]) Repository 07/21/2018 Drug metformin/[id number]( Unknown Unknown [place] Allergy/41 RXNORM) [facility] [id number][facility] Repository 12/30/2016 DRUG DICYCLOMINE Mental Chg [place] INGREDI/41 [facility] [id number]( [place] [facility]) Repository 03/22/2013 DRUG DOXYCYCLINE Vomiting [place] INGREDI/41 [facility] [id number]( [place] [facility]) Repository 01/03/2012 DRUG EXENATIDE GI UPSET [place] INGREDI/41 [facility] Main [id number]( [place] [facility]) Repository 06/28/2011 DRUG CYCLOBENZAPRINE OTHER: SEE C [place] INGREDI/41 [facility] [id number]( [place] [facility]) Repository 10/23/2007 Drug NSAIDS (NON-STEROIDAL GI UPSET [place] Class/4195 ANTI-INFLAMMATORY Clinic Main 76605(SN DRUG) [place] ED CT) Repository 10/14/2006 DRUG GABAPENTIN INTOLERANCE [place] INGREDI/41 [facility] Main [id number]( [place] [facility]) Repository 03/31/2005 DRUG METFORMIN GI UPSET [place] INGREDI/41 Clinic Main [id number]( [place] [facility]) Repository NG/[id number] DICYCLOMINE [facility] Repository NG/[id number] EXENATIDE [facility] 06([facility]) Repository NG/[id number] CYCLOBENZAPRINE [facility] 06([facility] Repository NG/[id number] DOXYCYCLINE [facility] Repository NG/[id number] METFORMIN [facility] Repository NG/1279400 GABAPENTIN [facility] Repository NG/[id number] NSAIDS (NON-STEROIDAL [facility] 06(SNOMED [facility]TI-INFLAMMATORY [facility]) DRUG) Repository ENCOUNTERS ENCOUNTERS ADMIT/DISCHARGE ACCOUNT NUMBER ADMITTING ENCOUNTER LOCATION SOURCE CLASS 07/28/2018 [id number] Ambulatory [facility] ding:CLSP Repository 07/25/2018 [id number] Ambulatory [facility] ding:CR Repository 07/21/2018 [id number] Ambulatory [facility] ding:LAB Repository 07/21/2018/07/21/19 [id number] Ambulatory BMSBuilding: [place] [facility] BMS.[facility] Repository 06/29/2018/06/30/20 [id number] Ambulatory [address] Repository 06/27/2018 [id number] Ambulatory BMSBuilding: [place] BMS.[facility] Repository 06/22/2018/06/25/20 [id number] Jwtsonis, Inpatient [place] [facility] ding:PC[facility]oom Repository : [id number]: 1 06/22/2018 [id number] Jwtsonis, Ambulatory BMSBuilding: [place] Patrick F BMS.[facility] Repository 06/22/2018 [id number] Kotsonis, Ambulatory BMSBuilding: [place] [facility] F BMS.CF.[facility] Repository 06/22/2018 [id number] Jwtsonis, Ambulatory BMSBuilding: [place] Patrick F BMS.[facility] Repository 06/22/2018 [id number] Jwtsonis, Ambulatory BMSBuilding: [place] Patrick F BMS.CF.[facility] Repository 06/22/2018 [id number] Jwtsonis, Ambulatory BMSBuilding: [place] Patrick F BMS.[facility] Repository 06/22/2018 [id number] Jwtsonis, Ambulatory BMSBuilding: [place] Patrick F BMS.[facility] Repository 06/22/2018/06/25/20 [id number] Ambulatory BMSBuilding: [place] [facility] Repository 06/22/2018/07/14/19 [id number] Ambulatory [address] Repository 06/21/2018/06/21/20 [id number] Ambulatory BMSBuilding: [place] 18 BMS.[facility] Repository 06/19/2018/06/20/20 [id number] Ambulatory [address] Repository 06/16/2018 [id number] Ambulatory BMSBuilding: [facility] Repository 06/16/2018/06/16/20 [id number] Sementi, Ambulatory [place] ding:PC[facility]oom Repository : [id number]: 1 06/16/2018 [id number] Sementi, Ambulatory [facility]: [place] [facility]MS.[facility] Repository 06/16/2018 [id number] Sementi, Ambulatory BMSBuilding: [place] BMS.[facility] Repository 06/14/2018/06/14/20 [id number] Ambulatory [address] Repository 06/14/2018/06/15/20 [id number] Ambulatory [address] Repository 06/13/2018/06/13/20 [id number] Ambulatory [address] Repository 05/18/2018/05/30/20 [id number] Ambulatory [address] Repository 05/10/2018/05/10/20 [id number] Ambulatory [address] Repository 04/24/2018/04/24/20 [id number] Ambulatory [address] Repository 04/24/2018/05/10/20 [id number] Ambulatory [address] Repository 04/04/2018/04/05/20 [id number] Ambulatory [address] Repository 03/07/2018/03/07/20 [id number] Ambulatory BMSBuilding: [place] 18 BMS.[facility] Repository 02/16/2018/03/03/20 [id number] Ambulatory [address] Repository 01/27/2018/01/31/20 [id number] Ambulatory [address] Repository 01/19/2018/01/21/20 [id number] Ambulatory [address] Repository 01/17/2018/01/18/20 [id number] Ambulatory [address] Repository 01/02/2018 [id number] Ambulatory [facility] MEDICAL Repository CENTERBuildi ng:CAGWS 12/09/2017/12/10/19 [id number] Ambulatory [address] Repository 12/08/2017/12/15/19 [id number] Ambulatory [address] Repository 11/29/2017/11/30/19 [id number] Ambulatory BMSBuilding: [place] 18 BMS.[facility] Repository 11/17/2017/12/02/19 [id number] Ambulatory [address] Repository 11/02/2017/11/03/19 [id number] Emergency [place] [facility] ding:ED Repository 10/18/2017/10/29/19 [id number] Ambulatory [address] Repository 09/08/2017/09/09/19 [id number] Ambulatory [address] Repository 09/01/2017/09/09/19 [id number] Ambulatory [address] Repository 09/01/2017/09/21/19 [id number] Ambulatory [address] Repository 08/26/2017 [id number] Ambulatory [facility] Repository 08/09/2017/08/09/19 [id number] Ambulatory BMSBuilding: [place] 51 [place] [address] Repository 08/04/2017 [id number] [facility] Repository PAYERS PAYERS ENCOUNTER GUARANTOR PAYER SUBSCRIBER SOURCE 07/28/2018 TORI M Primary TORI Coker [id number] Insurance:MEDICARE ELLIOTTDOB: [facility] [id number] Number: Repository [id number]: 330 [id number] [phone] () Date:2018-07-24 07/28/2018 Secondary TORI Levinoster Insurance:[facility]: [facility] [id number] Hospital Number: Repository [id number] Date:3156-33-46GH[address] [address]UR: 07/28/2018 Tertiary NOT GIVENUNK Sheela Insurance:SELF PAY [facility] Number: Effective Repository Date:2018-07-24 07/25/2018 TORI Pearl Primary TORI Coker [id number] Insurance:MEDICARE ELLIOTTDOB: [facility] [id number] Number: Repository [id number]: 330 [id number] [phone] (HP) Date:2018-06-28 07/25/2018 Secondary TORI Dae Hseela Insurance:[facility]: [facility] [id number] Hospital Number: Repository [id number] Date:9101-86-78BV [address], [place] [address]JI: 07/25/2018 Tertiary NOT GIVENUNK Sheela Insurance:SELF PAY [facility] Number: Effective Repository Date:2018-06-28 07/21/2018 ELIAS R Primary TORI M [place] [id number] Insurance:MEDICARE ELLIOTTDOB: [facility] DRLOT PART A [facility] [id number] Number: Repository [id number]: 330 [id number] [phone] () Date:2018-07-21 07/21/2018 Secondary TORI M Sheela [facility] [id number] Hospital Number: Repository [id number] Date:7688-08-63FL [address], [place] [address]RT: 07/21/2018 Tertiary NOT GIVENUNK Sheela Insurance:SELF PAY [facility] Number: Effective Repository Date:2018-07-21 07/21/2018 TORI M Primary TORI M Sheela [id number] Insurance:MEDICARE [facility]OB[facility] [id number] Number: Repository [address]Alc: 330 [id number] [phone] () Date:2018-06-27 07/21/2018 Secondary TORI M [place] Insurance:[facility] [id number] Hospital Number: Repository [id number] Date:3948-22-90OY [address], [place] [address]BY: 07/21/2018 Tertiary NOT GIVENUNK [place] Insurance:SELF PAY [facility] Number: Effective Repository Date:2018-07-07 06/27/2018 ELIAS R Primary TORI M [place] [id number] Insurance:MEDICARE ELLIOTTDOB: [facility] DRLOT PART A [facility] [id number] [place] Number: Repository [address]Byr: 330 [id number] [phone] () Date:2018-06-27 06/27/2018 Secondary TORI M [place] Insurance:BANKERS CORNELTTDOB: [facility] [id number] Hospital Number: Repository [id number] Date:7084-07-26VS [address], [place] [address]SY: 06/27/2018 Tertiary NOT GIVENUNK [place] Insurance:SELF PAY [facility] Hospital Number: Effective Repository Date:2018-06-27 06/22/2018 ELIAS R Primary TORI M Sheela [id number] Insurance:MEDICARE ELLIOTTDOB: [facility] PART [facility] [id number] Number: Repository [address]Clk: 330 [id number] [phone] () Date:2018-06-22 06/22/2018 Secondary TORI M [place] Insurance:[facility]: [facility] [id number] Hospital Number: Repository [id number] Date:4578-07-44BM [address] [address]FO: 06/22/2018 Tertiary NOT GIVENUNK [place] Insurance:SELF PAY [facility] Hospital Number: Effective Repository Date:2018-06-22 06/22/2018 ELIAS R Primary TORI M [place] [id number] Insurance:MEDICARE ELLIOTTDOB: [facility] PART [facility] [id number] Number: Repository [id number]: 330 [id number] [phone] () Date:2018-06-22 06/22/2018 Secondary TORI M Sheela Insurance[facility] [id number] Hospital Number: Repository [id number] Date:1259-03-56HG [address], [place] [address]LN: 06/22/2018 Tertiary NOT GIVENUNK [place] Insurance:SELF PAY [facility] Hospital Number: Effective Repository Date:2018-06-22 06/22/2018 ELIAS R Primary TORI M [place] [id number] Insurance:MEDICARE ELLIOTTDOB: [facility] BEE PART A [facility] [id number] Number: Repository [id number]: 330 [id number] [phone] () Date:2018-06-22 06/22/2018 Secondary TORI M [place] [facility] ELLIOTTDOB: [facility] [id number] Hospital Number: Repository [id number] Date:8014-47-28VF [address], [place] [address]GV: 06/22/2018 Tertiary NOT GIVENUNK Sheela Insurance:SELF PAY [facility] Hospital Number: Effective Repository Date:2018-06-22 06/22/2018 ELIAS R Primary TORI M [place] [id number] Insurance:MEDICARE ELLIOTTDOB: [facility] CRISTAL PART A [facility] [id number] Number: Repository [address]Oek: 330 [id number] [phone] () Date:2018-06-22 06/22/2018 Secondary TORI M [place] [facility] ELLIOTTDOB: [facility] [id number] Hospital Number: Repository [id number] Date:6213-08-53ZN [address]NNV[place], [place] [address]OB: 06/22/2018 Tertiary NOT GIVENUNK [place] Insurance:SELF PAY [facility] Hospital Number: Effective Repository Date:2018-06-22 06/22/2018 ELIAS R Primary TORI M [place] [id number] Insurance:MEDICARE ELLIOTTDOB: [facility] CRISTAL PART A [facility] [id number] Number: Repository [address]Fhb: 330 [id number] [phone] () Date:2018-06-22 06/22/2018 Secondary TORI M [place] Insurance:BANKERS ELLIOTTDOB: [facility] [id number] Hospital Number: Repository [id number] Date:4117-24-94LN [address], [place] [address]FB: 06/22/2018 Tertiary NOT GIVENUNK [place] Insurance:SELF PAY [facility] Number: Effective Repository Date:2018-06-22 06/22/2018 ELIAS R Primary TORI M [place] [id number] Insurance:MEDICARE ELLIOTTDOB: [facility] DRLOT PART A [facility] [id number] Number: Repository [id number]: 330 [id number] [phone] () Date:2018-06-22 06/22/2018 Secondary TORI M [place] Insurance:[facility]TT[facility]: [facility] [id number] Hospital Number: Repository [id number] Date:2844-12-34MB [address]CTLKDUV, [place] [address]WE: 06/22/2018 Tertiary NOT GIVENUNK Sheela Insurance:SELF PAY [facility] Hospital Number: Effective Repository Date:2018-06-22 06/22/2018 ELIAS R Primary TORI M [place] [id number] Insurance:MEDICARE ELLIOTTDOB: [facility] [id number] Number: Repository [address]Maf: 330 [id number] [phone] () Date:2018-06-22 06/22/2018 Secondary TORI M [place] Insurance:BANKERS ELLIOTTDOB: [facility] [id number] Hospital Number: Repository [id number] Date:9567-16-65UR [address], [place] [address]UM: 06/22/2018 Tertiary NOT GIVENUNK Sheela Insurance:SELF PAY [facility] Hospital Number: Effective Repository Date:2018-06-22 06/22/2018 ELIAS R Primary TORI M [place] [id number] Insurance:MEDICARE ELLIOTTDOB: [facility] [id number] Number: Repository [id number]: 254) [id number] [phone] () Date:2018-06-22 06/22/2018 Secondary TORI M She[place] Insurance:[facility]ITALOSCARTTD[facility]: [facility] [id number] Hospital Number: Repository [id number] Date:7982-08-80HY [address]XXZJXBP, [place] [address]EH: 06/22/2018 Tertiary NOT GIVENUNK Sheela Insurance:SELF PAY [facility] Hospital Number: Effective Repository Date:2018-06-22 06/21/2018 ELIAS R Primary TORI M [place] [id number] Insurance:MEDICARE ELLIOTTDOB: [facility] PART A [facility] [id number] Number: Repository [id number]: 330 [id number] [phone] () Date:2018-05-02 06/21/2018 Secondary TORI M [place] Insurance:[facility]TT[facility]: [facility] [id number] Hospital Number: Repository [id number] Date:2601-36-75JT [address]OTPGWLO, [place] [address]FM: 06/21/2018 Tertiary NOT GIVENUNK [place] Insurance:SELF PAY [facility] Hospital Number: Effective Repository Date:2018-06-21 06/16/2018 ELIAS R Primary TORI M [place] [id number] Insurance:MEDICARE ELLIOTTDOB: [facility] PART A [facility] [id number] Number: Repository [id number]: 330 [id number] [phone] () Date:2018-06-15 06/16/2018 Secondary TORI M [place] Insurance:[facility]: [facility] [id number] Hospital Number: Repository [id number] Date:4827-72-48JZ [address], [place] [address]BJ: 06/16/2018 Tertiary NOT GIVENUNK [place] Insurance:SELF PAY [facility] Hospital Number: Effective Repository Date:2018-06-16 06/16/2018 ELIAS R Primary TORI M [place] [id number] Insurance:MEDICARE ELLIOTTDOB: [facility] DRLOT PART A [facility] [id number] Number: Repository [address]Xdf: 330 [id number] [phone] () Date:2018-06-15 06/16/2018 Secondary TORI M [place] Insurance:BANKERS ELLIOTTDOB: [facility] [id number] Hospital Number: Repository [id number] Date:6392-78-62ZB [address], [place] [address]WY: 06/16/2018 Tertiary NOT GIVENUNK Sheela Insurance:SELF PAY [facility] Number: Effective Repository Date:2018-06-15 06/16/2018 ELIAS R Primary TORI M [place] [id number] Insurance:MEDICARE ELLIOTTDOB: [facility] [id number] Number: Repository [address]Het: 330 [id number] [phone] () Date:2018-06-15 06/16/2018 Secondary TORI M [place] Insurance:[facility] ELLIOTTDOB: [facility] [id number] Hospital Number: Repository [id number] Date:6152-58-82DL [address]ILHPTA, [place] [address]BK: 06/16/2018 Tertiary NOT GIVENUNK [place] Insurance:SELF PAY [facility] Hospital Number: Effective Repository Date:2018-06-16 06/16/2018 ELIAS R Primary TORI M [place] [id number] Insurance:MEDICARE ELLIOTTDOB: [facility] DRLOT PART A [facility] [id number] Number: Repository [address]Gfz: 330 [id number] [phone] () Date:2018-06-15 06/16/2018 Secondary TORI M [place] Insurance:BANKERS ELLIOTTDOB: [facility] [id number] Hospital Number: Repository [id number] Date:3037-85-76BA [address], [place] [address]VJ: 06/16/2018 Tertiary NOT GIVENUNK [place] Insurance:SELF PAY [facility] Number: Effective Repository Date:2018-06-16 03/07/2018 ELIAS R Primary TORI M [place] [id number] Insurance:MEDICARE ELLIOTTDOB: [facility] BEE PART A [facility] [id number] Number: Repository [id number]: 330 [id number] [phone] (HP) Date:2017-11-29 03/07/2018 Secondary TORI M She[place] [facility] ELLIOTTDOB: [facility] [id number] Hospital Number: Repository [id number] Date:8596-82-71MU [address]CTKYZT, [place] [address]BV: 03/07/2018 Tertiary NOT GIVENUNK [place] Insurance:SELF PAY [facility] Number: Effective Repository Date:2018-03-07 01/02/2018 TORI M Primary TORI M [facility] ELLIOTTDOB: Insurance:MEDICARE A ELLIOTTDOB: [facility] Number: [id number] Repository CT BEE [id number] [address] [place] [address] Date: 14[address]Dle: () 01/02/2018 Secondary TORI M [facility] Insurance:BANKERS ELLIOTTDOB: [facility] [id number] Repository Number: [id number] Date: 11/29/2017 ELIAS R Primary TORI M [place] [id number] Insurance:MEDICARE ELLIOTTDOB: [facility] BEE PART A [facility] [id number] Number: Repository [id number]: 330 [id number] [phone] (HP) Date:2017-08-09 11/29/2017 Secondary TORI M [place] Insurance:BANKERS ELLIOTTDOB: [facility] [id number] Hospital Number: Repository [id number] Date:2362-33-75JO [address]DWSZJHN, [place] [address]BS: 11/29/2017 Tertiary NOT GIVENUNK Sheela Insurance:SELF PAY [facility] Number: Effective Repository Date:2017-11-29 11/02/2017 ELIAS R Primary TORI M [place] [id number] Insurance:MEDICARE ELLIOTTDOB: [facility] PART [facility] [id number] Number: Repository [address]Mtf: 330 [id number] [phone] (HP) Date:2017-11-02 11/02/2017 Secondary TORI M [place] Insurance:[facility]: [facility] [id number] Hospital Number: Repository [id number] Date:8420-30-97LS [address]BFOJZ, [place] [address]RU: 11/02/2017 Tertiary NOT GIVENUNK Sheela Insurance:SELF PAY [facility] Number: Effective Repository Date:2017-11-02 08/09/2017 Elias R Primary TORI M [place] [id number] Insurance:MEDICARE ELLIOTTDOB: [facility] [id number] Number: Repository [id number]: [id number] [phone] Date:2017-06-14 () 08/09/2017 Secondary TORI M [place] Insurance:BANKERS ELLOSCARTTDOB: [facility] [id number] Hospital Number: Repository [id number] Date:2133-66-17KD [address]QIJQOF, [place] [address]LZ: 08/09/2017 Tertiary NOT GIVENUNK [place] Insurance:SELF PAY [facility] Number: Effective Repository Date:2017-08-08
== END 2018-06-25 13:48 | disposition home or self-care (01) | DRG 246 ==
LOC: ED 14:27 → PCU 16:02 → ICU 06-23 08:18 → PCU 06-24 14:18
PROVIDERS: Internal Medicine Cardiovascular Disease; Admitting Provider Family Medicine; Emergency Provider Emergency Medicine; Family Provider Internal Medicine; PCP Internal Medicine; Visit Provider Hospitalist
DX: I21.4 Non-ST elevation (NSTEMI) myocardial infarction (principal); I50.31 Acute diastolic (congestive) heart failure; I13.0 Hypertensive heart and chronic kidney disease with heart failure and stage 1 through stage 4 chronic kidney disease, or unspecified chronic kidney disease; I25.110 Atherosclerotic heart disease of native coronary artery with unstable angina pectoris; E11.22 Type 2 diabetes mellitus with diabetic chronic kidney disease; E78.5 Hyperlipidemia, unspecified; N18.3 Chronic kidney disease, stage 3 (moderate); I16.0 Hypertensive urgency; Z79.899 Other long term (current) drug therapy; Z79.4 Long term (current) use of insulin; Z87.891 Personal history of nicotine dependence; G89.29 Other chronic pain; M54.9 Dorsalgia, unspecified; F41.9 Anxiety disorder, unspecified; B18.2 Chronic viral hepatitis C
CPT/HCPCS: 36415; 71046; 80048; 82962; 83880; 84484; 85025; 85027; 85347; 85610; 85730; 92928; 93005; 93458; 94640; 99152; 99153; 99285; J7030; Q9967; A4216; C1725; C1769; C1874; C1887; C1894; C9600; J1940; J2405

== ENCOUNTER → 2018-07-21 14:53 | Outpatient (CLI) | payer MEDICARE, OTHER, SELFPAY ==
[2018-07-21 13:31] VITALS: BMI 33.4
[2018-07-21 16:55] LABS: Absolute Lymphocyte Count 2.42 X10^3/ul (0.83-4.51); Basophil# 0.06 X10^3/uL; Basophil% 0.9 % (0-1); Eosinophil# 0.14 X10^3/uL; Hematocrit 41.5 % (37-47); Hemoglobin 13.1 g/dl (12.0-15.0); Lymphocyte # 2.42 X10^3/ul (4.0); Lymphocyte % 34.8 % (19-41); Mean Corp Hgb Conc 31.6 g/gl (32-36); Mean Corpuscular Hgb 25.8 pg (27.0-32.0); Mean Corpuscular Volume 81.7 fL (81-99); Mean Platelet Vol. 11.3 fl (6.2-12.0); Monocyte# 0.35 X10^3/uL; Neutrophil # 3.96 X10^3/uL (2.7-7.7); Neutrophil % 56.9 % (47-70); Platelet Count 211 K/mm3 (150-450); RBC Distribution Width CV 14.5 % (11.6-14.6); RBC Distribution Width SD 43.6 fl (35.1-43.9); Red Blood Count 5.08 M/mm3 (4.2-5.4)
[2018-07-21 17:07] LABS: Anion Gap 9 (5-15); BUN 17 mg/dL (7-18); BUN/Creat Ratio 17.3 RATIO (10-20); Calcium,Total 9.3 mg/dL (8.5-10.1); Chloride 104 mmol/L (98-107); Creatinine, Serum 0.98 mg/dL (0.55-1.02); EST Glomerular Filtration Rate 60 mL/min (>60); Est Glom Filt Rate - Afr Amer 72 mL/min (>60); Glucose 118 mg/dL (74-106); Potassium 3.8 mmol/L (3.5-5.1); Sodium Level 141 mmol/L (136-145)
[2018-07-21 18:19] LABS: POSITIVE COUNT NO; POSITIVE DIFFERENTIAL NO; POSITIVE MORPHOLOGY NO
== END ==
PROVIDERS: Family Provider Internal Medicine; PCP Internal Medicine; Referring Provider Internal Medicine Cardiovascular Disease; Visit Provider Internal Medicine Cardiovascular Disease
DX: I21.4 Non-ST elevation (NSTEMI) myocardial infarction (principal); I25.10 Atherosclerotic heart disease of native coronary artery without angina pectoris
CPT/HCPCS: 36415; 80048; 85025

== ENCOUNTER → 2018-07-25 09:13 | Outpatient (CLI) | payer MEDICARE, OTHER, SELFPAY ==
[2018-06-22 16:27] VITALS: BMI 34.4
[2018-07-21 13:31] VITALS: BMI 33.4
--- NOTE | 2018-07-25 10:45 | PCM.CR.HP2 ---
CR - History & Physical - General Arrival date:: 07/25/18 Arrival time:: 09:15 Date of Referral:: 06/27/18 Date of CR Evaluation:: 07/25/18 Referring Physician: Dr. Mcdowell Primary Diagnosis: PTCA PCI w/coronary stent placement, nstemi - History of Present Cardiac Event Onset Date: Enter Onset Date of cardiac illnesses in Comment field below Acute Myocardial Infarction within 12 months:: Yes - NSTEMI PTCA or coronary stenting:: Yes - 06/23/18, repeat procedure 07/29/2018 for added stent placement Heart or Heart-Lung Transplant:: No Heart Failure EF <35%:: No Type of Symptoms:: tired, hard to walk, shortness of breath when walking, pressure on the right side of chest, blood pressure were very high, was actually in the doctors office for the elevated blood pressure sent to hospital. Interventions with present event:: heart cath, stent placement Were there any complications?: still had to work through [employer] issues but overall did okay. - Medications Home Medications: Ambulatory Orders Medication Instructions Recorded insulin aspart U- 100 100 unit/mL 10 unit SC TIDCM ml 07/26/17 subcutaneous pen Insulin Detemir [Levemir FlexPen] 10 units SQ QHS 06/22/18 Insulin Detemir [Levemir FlexPen] 17 units SQ DAILY 06/22/18 Nitroglycerin [Nitrostat] 0.4 mg SUBLINGUAL Q5M PRN 06/22/18 aspirin 81 mg tablet,delayed 81 mg PO DAILY@0800 #90 tab 07/21/18 release clopidogrel 75 mg tablet 75 mg PO DAILY #90 tab 07/21/18 hydrochlorothiazide 12.5 mg capsule 12.5 mg PO DAILY 07/21/18 isosorbide mononitrate ER 30 mg 30 mg PO DAILY #90 tab 07/21/18 tablet,extended release 24 hr metoprolol succinate ER 50 mg 50 mg PO DAILY #90 tab 07/21/18 tablet,extended release 24 hr nifedipine ER 60 mg 60 mg PO DAILY #90 tab 07/21/18 tablet,extended release 24 hr simvastatin 20 mg tablet 20 mg PO QHS #90 tab 07/21/18 Nifedipine [Nifedipine ER] 60 mg PO 07/25/18 Simvastatin [Zocor] 20 mg PO QHS 07/25/18 - Allergies Allergies/Adverse Reactions: Allergies metformin Allergy (Verified 07/21/18 12:22) Unknown - Sleep Disorder Evaluation Hx of Sleep Apnea: No Do you snore loudly (louder than talking or can be heard through closed doors)?: Yes Do you often feel tired/ fatigued/ sleepy during daytime?: Yes - frequently nods off in the chair Has anyone observed you stop breathing during sleep?: No History of Hypertension (for STOP score): Yes STOP Results: Positive Advanced Directives - Advanced Directives Power of Loss Prevention/Safety District Manager: Yes Living Will: Yes Advance Directives Information Provided: No Advance Directives on File: Yes DNR Order?:: No - MOLST See MOLST form: No Past Medical History - Past Medical Illness Medical History: Past Medical History (Last Reviewed 07/21/18 @ 14:13 by Sylvain Mcdowell MD) Non-ST elevation (NSTEMI) myocardial infarction (Resolved) Onset Date: 06/22/18 I21.4 Acute diastolic (congestive) heart failure (Acute) I50.31 Atherosclerosis of coronary artery of [place] heart without angina pectoris (Chronic) I25.10 [id number] LAD w/ a 3.0 x 38 mm Synergy Stent 06/23/18 Essential (primary) hypertension (Chronic) I10 Hyperlipidemia (Chronic) E78.5 Anxiety F41.9 Back problem M53.9 Corneal injury S05.8X9A Diabetes type 2, controlled E11.9 Dx : 1997 Last exacerbation : DKA : never Hypoglycemic episode : never ER visit : never Hepatitis K75.9 Right wrist pain M25.531 - Past Surgical History Surgical History: Past Surgical History (Last Reviewed 07/21/18 @ 14:13 by Sylvain Mcdowell MD) History of coronary artery stent placement (Resolved) Onset Date: 06/23/18 Z95.5 [id number] LAD w/ a 3.0 x 38 mm Synergy Stent 06/23/18 History of total abdominal hysterectomy Z98.890, Z90.710 S/P colonoscopy Z98.890 Surgical History: hysterectomy - Family History Summary Family History: Family History (Last Reviewed 07/21/18 @ 14:13 by Sylvain Mcdowell MD) Mother Arthritis Father Arthritis Social History - Smoking History Smoking Status: Former smoker Years Smokin Packs Smoked per Day: 0.5 Hx Smoking Cessation Date: 20 years ago. Hx Tobacco Use: No Hx Smoking Exposure: No - Alcohol Use Alcohol Usage: No - Substance Abuse Hx Substance Use: No - Occupation Occupation (List type of work in comments):: Retired - Hobbies, Recreation, Social Activities Hobbies: Other - kylie foods, yard work gardening, flower beds. Recreational Activities: I am able to engage in most, but not all activities - has to do them slower and in smaller quantity Social Environment - Status Marital Status: - Current Living Arrangements Living Environment:: Spouse - Children How many children do you have?: 5 - 3 step children Do any of your children live nearby?: No - [place] and [place] - Safety Do you feel safe in your surroundings?: Yes - Assistance Do you need any assistance at home?: yes; has a direct support professional home health that comes to help with heavy housework. Review of Systems - Review of Systems Hints: Right click = Denies (Slash). Left click = Reports ([place]) Review of Present Symptoms: Reports: Shortness of Breath with Exertion - if getting up and to heavy activity, can't work to fast or walk to fast., Fatigue, Appetite - Normal, Appetite - Special Diet - Diabetic diet, low fat, low carb, no salt diet., Sleep - Normal. Denies: Shortness of Breath at Rest, Angina, Dizziness/Lightheadedness, Heart Arrhythmia/Irregularities, Sexual Changes - Pain Is Patient Pain Free?: Yes Pain Location: none Pain Level: 0/10 Risk Factor Assessment - Chief Complaint Chief Complaint: Patient presents to cardiac rehab today following recent NSTEMI and PCI w/coronary stent placement. She is scheduled tuesdayJul 29 for an additional stent placement by Dr. Calero. We will postpone her starting her cardiac rehab for two more weeks to allow for proper recovery from the intervention this tuesday. - Vital Signs Temperature: 98.7 F Respiratory Rate: 16 Pulse Ox: 96 Blood Pressure: 172/68 Nailbeds:: pink - Pulse Pulse Rate: 80 Pulse Rhythm: Regular - Hypertension How long have you been treated?: 1999 On medication(s)?: yes Blood Pressure Sitting - Left Arm: 172/68 - Stress Stress: Recent - Blood Cholesterol/Lipids HDL Cholesterol (mg/dL) Goal = less than 40 mg/dL: 58 LDL Cholesterol (mg/dL) Goal = less than 70 mg/dL: 132 Triglycerides (mg/dL) Goal = less than 150 mg/dL: 126 - Diabetes Diabetic History: Type II, Insulin Dependent Nutrition Referral for Diabetes: Yes - Obesity Height: 5 ft 1 in Weight:: 177 lb Weight in Pounds: 177.0 lbs Weight Source: Estimated by Patient Body Mass Index (BMI): 33.4 Realistic Weight Goal (Loss of 1-2 lbs/week): 165 Nutritional Referral for Obesity: Yes - Physical Inactivity Physical Inactivity: None - Risk Stratification Risk Guidelines: Lowest Risk: Risk Factor for Smoking, Risk Factor for Depression, Moderate Risk: Risk Factor for Dyslipidemia, Risk Factor for Diabetes, Risk Factor for Hypertension, Highest Risk: Risk Factor for Obesity, Risk Factor for Sedentary Lifestyle - For Smoking Smoking Risk Guidelines: Smoking Low Risk: None or quit greater than 6 months ago. Smoking Moderate Risk: Smoker or quit 6 months or less ago. Smoking High Risk: Smoker - For Dyslipidemia Dyslipidemia Risk Guidelines: Low Risk: Moderate Risk: High Risk: 15-25% fat 25.1-29% fat >/= 30% fat. <7% sat fat 7-9% sat fat >9% sat fat. <150 mg chol 150-299 mg chol >/= 300 mg chol. LDL <100 LDL 100-129 LDL >/= 130. Chol/HDL ratio <5.0 Chol/HDL ratio 5.0-6.0 Chol/HDL ratio >6.0. Triglycerides <100 Triglycerides 100-149 Triglycerides >/= 150 - For Diabetes Mellitus Diabetes Risk Guidelines: Diabetes Low Risk: HgA1c <6.5% and/or FBG <120. Diabetes Moderate Risk: HgA1c 6.6-7.9% and/or FBG 120-180. Diabetes High Risk: HgA1c >/= 8% and/or FBG >180 - For Obesity/Overweight Obesity/Overweight Risk Guidelines: Obesity Low Risk: BMI <25.0. Obesity Moderate Risk: BMI 25-29.9. Obesity High Risk: BMI >/= 30.0 - For Hypertension Hypertension Risk Guidelines: Hypertension Low Risk: Systolic <120 and Diastolic <80. Hypertension Moderate Risk: Systolic 120-139 and Diastolic 80-89. Hypertension High Risk: Systolic >/= 140 and Diastolic >/= 90 - For Sedentary Lifestyle Sedentary Lifestyle Risk Guidelines: Sedentary Lifestyle Low Risk: >/= 1,500 kcal/week. Sedentary Lifestyle Moderate Risk: 700-1,499 kcal/week. Sedentary Lifestyle High Risk: < 700 kcal/week - For Depression Depression Risk Guidelines: Depression Low Risk: Not clinically depressed. Depression Moderate Risk: Mildly depressed. Depression High Risk: Clinically depressed - Family History Family History: Family History (Last Reviewed 07/21/18 @ 14:13 by Sylvain Mcdowell MD) Mother Arthritis Father Arthritis Motivation - Motivation to Participate On a scale of 1 to 10, how prepared are you to commit to attending program?: 10 - 100% What do you see as barriers to successfully being able to complete the program?: none; is on dialysis and conflict with his treatment What do you see as the benefits of succesfully completing the program? In other words, what do you hope to get out of participating in the program?: being able to move again, do things I am used to doing again. Are there issues you are dealing with that will interfere with completing the program?: none Do you have a spouse or signficant other, family or friends who will help support you to complete the program?: yes; locally support of friends and family to help.
--- NOTE | 2018-07-25 10:49 | CR.HP_ITS ---
CR - History & Physical - General Arrival date:: 07/25/18 Arrival time:: 09:15 Date of Referral:: 06/27/18 Date of CR Evaluation:: 07/25/18 Referring Physician: Dr. Mcdowell Primary Diagnosis: PTCA PCI w/coronary stent placement, nstemi - History of Present Cardiac Event Onset Date: Enter Onset Date of cardiac illnesses in Comment field below Acute Myocardial Infarction within 12 months:: Yes - NSTEMI PTCA or coronary stenting:: Yes - 06/23/18, repeat procedure 07/29/2018 for added stent placement Heart or Heart-Lung Transplant:: No Heart Failure EF <35%:: No Type of Symptoms:: tired, hard to walk, shortness of breath when walking, pressure on the right side of chest, blood pressure were very high, was actually in the doctors office for the elevated blood pressure sent to hospital. Interventions with present event:: heart cath, stent placement Were there any complications?: still had to work through [employer] issues but overall did okay. - Medications Home Medications: Ambulatory Orders Medication Instructions Recorded insulin aspart U- 100 100 unit/mL 10 unit SC TIDCM ml 07/26/17 subcutaneous pen Insulin Detemir [Levemir FlexPen] 10 units SQ QHS 06/22/18 Insulin Detemir [Levemir FlexPen] 17 units SQ DAILY 06/22/18 Nitroglycerin [Nitrostat] 0.4 mg SUBLINGUAL Q5M PRN 06/22/18 aspirin 81 mg tablet,delayed 81 mg PO DAILY@0800 #90 tab 07/21/18 release clopidogrel 75 mg tablet 75 mg PO DAILY #90 tab 07/21/18 hydrochlorothiazide 12.5 mg capsule 12.5 mg PO DAILY 07/21/18 isosorbide mononitrate ER 30 mg 30 mg PO DAILY #90 tab 07/21/18 tablet,extended release 24 hr metoprolol succinate ER 50 mg 50 mg PO DAILY #90 tab 07/21/18 tablet,extended release 24 hr nifedipine ER 60 mg 60 mg PO DAILY #90 tab 07/21/18 tablet,extended release 24 hr simvastatin 20 mg tablet 20 mg PO QHS #90 tab 07/21/18 Nifedipine [Nifedipine ER] 60 mg PO 07/25/18 Simvastatin [Zocor] 20 mg PO QHS 07/25/18 - Allergies Allergies/Adverse Reactions: Allergies metformin Allergy (Verified 07/21/18 12:22) Unknown - Sleep Disorder Evaluation Hx of Sleep Apnea: No Do you snore loudly (louder than talking or can be heard through closed doors)?: Yes Do you often feel tired/ fatigued/ sleepy during daytime?: Yes - frequently nods off in the chair Has anyone observed you stop breathing during sleep?: No History of Hypertension (for STOP score): Yes STOP Results: Positive Advanced Directives - Advanced Directives Power of Manager Party: Yes Living Will: Yes Advance Directives Information Provided: No Advance Directives on File: Yes DNR Order?:: No - MOLST See MOLST form: No Past Medical History - Past Medical Illness Medical History: Past Medical History (Last Reviewed 07/21/18 @ 14:13 by Sylvain Mcdowell MD) Non-ST elevation (NSTEMI) myocardial infarction (Resolved) Onset Date: 06/22/18 I21.4 Acute diastolic (congestive) heart failure (Acute) I50.31 Atherosclerosis of coronary artery of [place] heart without angina pectoris (Chronic) I25.10 MIB-IND-Npre LAD w/ a 3.0 x 38 mm Synergy Stent 06/23/18 Essential (primary) hypertension (Chronic) I10 Hyperlipidemia (Chronic) E78.5 Anxiety F41.9 Back problem M53.9 Corneal injury S05.8X9A Diabetes type 2, controlled E11.9 Dx : 1997 Last exacerbation : DKA : never Hypoglycemic episode : never ER visit : never Hepatitis K75.9 Right wrist pain M25.531 - Past Surgical History Surgical History: Past Surgical History (Last Reviewed 07/21/18 @ 14:13 by Sylvain Mcdowell MD) History of coronary artery stent placement (Resolved) Onset Date: 06/23/18 Z95.5 [id number] LAD w/ a 3.0 x 38 mm Synergy Stent 06/23/18 History of total abdominal hysterectomy Z98.890, Z90.710 S/P colonoscopy Z98.890 Surgical History: hysterectomy - Family History Summary Family History: Family History (Last Reviewed 07/21/18 @ 14:13 by Sylvain Mcdowell MD) Mother Arthritis Father Arthritis Social History - Smoking History Smoking Status: Former smoker Years Smokin Packs Smoked per Day: 0.5 Hx Smoking Cessation Date: 20 years ago. Hx Tobacco Use: No Hx Smoking Exposure: No - Alcohol Use Alcohol Usage: No - Substance Abuse Hx Substance Use: No - Occupation Occupation (List type of work in comments):: Retired - Hobbies, Recreation, Social Activities Hobbies: Other - kylie foods, yard work gardening, flower beds. Recreational Activities: I am able to engage in most, but not all activities - has to do them slower and in smaller quantity Social Environment - Status Marital Status: - Current Living Arrangements Living Environment:: Spouse - Children How many children do you have?: 5 - 3 step children Do any of your children live nearby[place] Safety Do you feel safe in your surroundings?: Yes - Assistance Do you need any assistance at home?: yes; has a salesperson trailers and motor homes that comes to help with heavy housework. Review of Systems - Review of Systems Hints: Right click = Denies ([place]ash). Left click = Reports ([place]) Review of Present Symptoms: Reports: Shortness of Breath with Exertion - if getting up and to heavy activity, can't work to fast or walk to fast., Fatigue, Appetite - Normal, Appetite - Special Diet - Diabetic diet, low fat, low carb, no salt diet., Sleep - Normal. Denies: Shortness of Breath at Rest, Angina, Dizziness/Lightheadedness, Heart Arrhythmia/Irregularities, Sexual Changes - Pain Is Patient Pain Free?: Yes Pain Location: none Pain Level: 0/10 Risk Factor Assessment - Chief Complaint Chief Complaint: Patient presents to cardiac rehab today following recent NSTEMI and PCI w/coronary stent placement. She is scheduled tuesdayJul 29 for an additional stent placement by Dr. Calero. We will postpone her starting her cardiac rehab for two more weeks to allow for proper recovery from the intervention this tuesday. - Vital Signs Temperature: 98.7 F Respiratory Rate: 16 Pulse Ox: 96 Blood Pressure: 172/68 Nailbeds:: pink - Pulse Pulse Rate: 80 Pulse Rhythm: Regular - Hypertension How long have you been treated?: 1999 On medication(s)?: yes Blood Pressure Sitting - Left Arm: 172/68 - Stress Stress: Recent - Blood Cholesterol/Lipids HDL Cholesterol (mg/dL) Goal = less than 40 mg/dL: 58 LDL Cholesterol (mg/dL) Goal = less than 70 mg/dL: 132 Triglycerides (mg/dL) Goal = less than 150 mg/dL: 126 - Diabetes Diabetic History: Type II, Insulin Dependent Nutrition Referral for Diabetes: Yes - Obesity Height: 5 ft 1 in Weight:: 177 lb Weight in Pounds: 177.0 lbs Weight Source: Estimated by Patient Body Mass Index (BMI): 33.4 Realistic Weight Goal (Loss of 1-2 lbs/week): 165 Nutritional Referral for Obesity: Yes - Physical Inactivity Physical Inactivity: None - Risk Stratification Risk Guidelines: Lowest Risk: Risk Factor for Smoking, Risk Factor for Depression, Moderate Risk: Risk Factor for Dyslipidemia, Risk Factor for Diabetes, Risk Factor for Hypertension, Highest Risk: Risk Factor for Obesity, Risk Factor for Sedentary Lifestyle - For Smoking Smoking Risk Guidelines: Smoking Low Risk: None or quit greater than 6 months ago. Smoking Moderate Risk: Smoker or quit 6 months or less ago. Smoking High Risk: Smoker - For Dyslipidemia Dyslipidemia Risk Guidelines: Low Risk: Moderate Risk: High Risk: 15-25% fat 25.1-29% fat >/= 30% fat. <7% sat fat 7-9% sat fat >9% sat fat. <150 mg chol 150-299 mg chol >/= 300 mg chol. LDL <100 LDL 100-129 LDL >/= 130. Chol/HDL ratio <5.0 Chol/HDL ratio 5.0-6.0 Chol/HDL ratio >6.0. Triglycerides <100 Triglycerides 100- 149 Triglycerides >/= 150 - For Diabetes Mellitus Diabetes Risk Guidelines: Diabetes Low Risk: HgA1c <6.5% and/or FBG <120. Diabetes Moderate Risk: HgA1c 6.6-7.9% and/or FBG 120-180. Diabetes High Risk: HgA1c >/= 8% and/or FBG >180 - For Obesity/Overweight Obesity/Overweight Risk Guidelines: Obesity Low Risk: BMI <25.0. Obesity Moderate Risk: BMI 25-29.9. Obesity High Risk: BMI >/= 30.0 - For Hypertension Hypertension Risk Guidelines: Hypertension Low Risk: Systolic <120 and Diastolic <80. Hypertension Moderate Risk: Systolic 120-139 and Diastolic 80-89. Hypertension High Risk: Systolic >/= 140 and Diastolic >/= 90 - For Sedentary Lifestyle Sedentary Lifestyle Risk Guidelines: Sedentary Lifestyle Low Risk: >/= 1,500 kcal/week. Sedentary Lifestyle Moderate Risk: 700-1,499 kcal/week. Sedentary Lifestyle High Risk: < 700 kcal/week - For Depression Depression Risk Guidelines: Depression Low Risk: Not clinically depressed. Depression Moderate Risk: Mildly depressed. Depression High Risk: Clinically depressed - Family History Family History: Family History (Last Reviewed 07/21/18 @ 14:13 by Sylvain Mcdowell MD) Mother Arthritis Father Arthritis Motivation - Motivation to Participate On a scale of 1 to 10, how prepared are you to commit to attending program?: 10 - 100% What do you see as barriers to successfully being able to complete the program?: none; is on dialysis and conflict with his treatment What do you see as the benefits of succesfully completing the program? In other words, what do you hope to get out of participating in the program?: being able to move again, do things I am used to doing again. Are there issues you are dealing with that will interfere with completing the program?: none Do you have a spouse or signficant other, family or friends who will help support you to complete the program?: yes; locally support of friends and family to help.
[2018-07-25 11:04] VITALS: BP 172/68; PULSE 80; RESP 16; TEMP 37.1; O2SAT 96; BMI 33.4
--- NOTE | 2018-07-25 11:34 | PCM.CR.ITP ---
General Information - General Information Admitting Diagnosis: NSTEMI, PTCA,PCI w/stent. Repeating PCI w/stent on Tuesday. - Education/Goals Barriers to Learning: Vision Impairment - diabetic vision, corneal injury. Individual Counseling: Initial Assessment: Abnormal Cholesterol Levels, High Blood Pressure, Overweight/Obesity, Diabetes, B. Waist Circumference >35/Females >40/Males, Hypertension, Low HDL <40/Males or <50/Females, Sedentary Lifestyle Cardiac Rehabilitation Goals: 1. Maintain the individual as the primary focus of care. 2. To improve the patient's quality of life. 3. Identification of cardiac risk factors and provide cardiac risk factor management. 4. Enhance the psychosocial status of the patient. 5. Reconditioning enough to allow the patient to resume customary activities. 6. Control symptoms of cardiac disease Scale for measuring improvement of personal goals: Enter appropriate number in Comments. 2 = Unchanged. 3 = Slightly Better. 4 = Moderate Improvement. 5 = Met my Goal Personal Goals: Initial Assessment: Improve energy level, Get back to work, or to resume activities faster, Improve knowledge of cardiac disease, Improve muscle strength and endurance, Improve diet and eating habits (eat healthier), Control risk factors (learn risk factor modification) Exercise - Initial Assessment - Visit Date of Eval: 07/25/18 - starting 08/14/18 Session #:: 0 - Stages of Change Stages of Change:: Action - Exercise Prescription Mode:: Treadmill - with caution, Airdyne, NuStep, Arm Ergometer Angina with exercise?: No Target Heart Rate:: 106-114 - Hypertension Do any of the following apply?: Medication, Diet Resting Blood Pressure:: 172/68 - Intervention Home Exercise/Activity Goal:: Sitting Time <3 hrs/day - Education Goals:: Warm-up, RPE MELISSA Scale, S/S, Safe Exercise, Self-Monitoring - Exercise Program Goals Exercise Program Goals: B/P <130/80 Nutrition - Initial Assessment - Program Goals Nutrition Program Goals: LDL <70. Total Cholesterol <200. HDL >45. Triglycerides <150. HgbA1C <7%. BMI <25 - Visit Date of Assessment:: 07/25/18 - starting 08/14/18 - Stages of Change Stages of Change:: Action - Diabetes Diabetes:: Yes Insulin: Yes Non-Insulin Dependent?: Yes Do you monitor your blood sugar at home?: Yes - Weight Management Height: 5 ft 1 in Weight:: 177 lb Body Fat %:: 33.4 - Intervention Referral to dietitian:: Yes Referral to Diabetic Clinic:: Yes Will attend diet classes:: Yes - Education Gave educational materials for:: Signs & symptoms of hypoglycemia, Signs & symptoms of hyperglycemia, Relate diabetes to coronary artery disease, Healthy eating Tobacco - Initial Assessment - Program Goals Tobacco Program Goals: Complete smoking cessation. Attend education classes. Improve Knowledge Test score - Stage of Change Stages of Change:: Action - Learning Barriers Learning Barriers: Vision - acute vision impairment, requires magnification d/t corneal injury DM vision impairment - Family Support Do you have family support?: Yes - Tobacco Use Tobacco Use: Non-smoker How long ago did you quit using tobacco products?: Greater than or equal to 6 months ago Do you use smokeless tobacco?: No - Intervention Smoking Cessation Referral:: No Individual Education/Counseling:: No Education Schedule Given:: Yes - Education Gave educational material for:: Coronary artery disease, Risk factors, Sexuality, Medical compliance, Cardiac A&P, Angina signs & symptoms Psychosocial - Initial Assess - Target Goals Target Goals: Assess presence or absence of depression. Using a valid screening tool, maximizes coping skills. Positive support system - Stages of Change Stages of Change:: Action - Psychosocial Test Tool Used:: HANDS Depression Questionnaire - Intervention PS - Interventions: Yes Attend Stress Management Classes, No Referral to Mental Health, No Referral to [facility] Case Management, No Referral to Physician, No Uses Stress Management Skills - Education Gave educational materials for:: Coping techniques, Signs & symptoms of depression, Stress management, Relaxation techniques - Patient/Program Goal Preventative Medication(s):: Aspirin, Clopidogrel, Beta ramón, Statin/lipid - Assistive Devices Assistive Devices:: Wheelchair - for long distances due to lower exremety weakness Fall Risk Assessed:: Yes Patient Health Questionnaire Initial Assessment 1. Little interest or pleasure in doing things: Not at all - taken home to complete due to vision impairment Total Score: 0 JANE-Q SV Test - Statements CAD is a disease of the arteries in the heart: False - took home to complete due to vision impairment Self-Efficacy Initial Assessment We would like to know how confident you are in doing certain activities. Please select your confidence level for:: Select your confidence level for the following using the scale 1-10 where 1 is not at all confident and 10 is totally confident. Your score is the average of all 6 responses. Fatigue: How confident are you that you can keep the fatigue caused by your disease from interfering with the things you want to do? Select Number: 4 - took home to complete due to vision impairment. Physical Discomfort or Pain: How confident are you that you can keep the physical discomfort or pain of your disease from interfering with the things you want to do? Emotional Distress: How confident are you that you can keep the emotional distress caused by your disease from interfering with the things you want to do? Other Symptoms or Health Problems: How confident are you that you can keep other symptoms or health problems from interfering with the things you want to do? Different Tasks and Activities: How confident are you that you can do the different tasks and activities needed to manage your health condition so as to reduce your need to see a doctor? Medication: How confident are you that you can do things other than just taking medication to reduce how much your illness affects your everyday life? Nutrition Survey - Nutrition Survey Instructions Scoring Instructions: Scoring is as follows: Yes = 1 points. No = 0 point. Patient score that is >/=12 is considered to be at potential nutritional risk and could benefit from a referral to a registered dietitian. - Nutrition Survey Initial Have you lost >10 lbs over the past 2 months without trying?: No Are you following a special diet at home for diabetes, low fat, or low salt?: Yes Are you interested in meeting with a dietitian for help understanding your diet?: Yes Do you eat less than 3 meals a day?: Yes Do you eat fatty meats (hamilton, sausage, ribs, etc), fried foods, desserts, large amounts of salad dressings, margarine, butter, or cheese most days?: Yes Do you have food allergies? [Enter types in comment field]: No Do you eat in restaurants more than 3 times a week?: No Do you season food with salt, seasoning salt, or garlic salt?: No Do you used canned, boxed, frozen meals, or soups, seasoning packets?: Yes Total Score:: 5
[2018-07-25 11:43] VITALS: BP 172/68
== END ==
PROVIDERS: Family Provider Internal Medicine; PCP Internal Medicine; Referring Provider Internal Medicine Cardiovascular Disease; Visit Provider Internal Medicine Cardiovascular Disease
DX: I21.4 Non-ST elevation (NSTEMI) myocardial infarction (principal); Z95.1 Presence of aortocoronary bypass graft

== ENCOUNTER 2018-09-06 08:00 | Outpatient (RCR) | payer MEDICARE, OTHER, SELFPAY ==
[2018-07-25 11:04] VITALS: BMI 33.4
--- NOTE | 2018-08-23 08:45 | PCM.CR.ITP ---
General Information - General Information Admitting Diagnosis: PCI W/Stenting - Education/Goals Cardiac Rehabilitation Goals: 1. Maintain the individual as the primary focus of care. 2. To improve the patient's quality of life. 3. Identification of cardiac risk factors and provide cardiac risk factor management. 4. Enhance the psychosocial status of the patient. 5. Reconditioning enough to allow the patient to resume customary activities. 6. Control symptoms of cardiac disease Scale for measuring improvement of personal goals: Enter appropriate number in Comments. 2 = Unchanged. 3 = Slightly Better. 4 = Moderate Improvement. 5 = Met my Goal Exercise - 30-day Assessment - Visit Date of Eval: 08/23/18 Session #:: 4 - Stages of Change Stages of Change:: Action - Exercise Prescription Mode:: Treadmill, Biodyne, NuStep, Arm Ergometer Frequency (x/week): 3 Duration:: 30-45 METs - Progression: 0.5-1 MET as tolerated: 2.5 Target Heart Rate:: 106-114 Max HR 85 - Hypertension Resting Blood Pressure:: 140/74 Peak Exercise Blood Pressure:: 140/74 - Intervention Home Exercise/Activity Goal:: Sitting Time <3 hrs/day - Education Goals:: Warm-up, RPE MELISSA Scale, S/S, Safe Exercise, Self-Monitoring - Exercise Program Goals Exercise Program Goals: Aerobic Activity >30 min, B/P <130/80 Nutrition - Initial Assessment - Program Goals Nutrition Program Goals: LDL <70. Total Cholesterol <200. HDL >45. Triglycerides <150. HgbA1C <7%. BMI <25 - Diabetes Do you monitor your blood sugar at home?: Yes Nutrition - 30-Day Assessment - Program Goals Nutrition Program Goals: LDL <70. Total Cholesterol <200. HDL >45. Triglycerides <150. HgbA1C <7%. BMI <25 - Visit Date of Eval: 08/23/18 - Stages of Change Stages of Change:: Action - Diabetes Diabetes:: Yes - Weight Management Weight:: 83.234 kg - Intervention Referral to dietitian:: No Referral to Diabetic Clinic:: No Will attend diet classes:: Yes - Education Attended class for:: Signs & symptoms of hypoglycemia, Signs & symptoms of hyperglycemia, Relate diabetes to coronary artery disease, Healthy eating Tobacco - Initial Assessment - Program Goals Tobacco Program Goals: Complete smoking cessation. Attend education classes. Improve Knowledge Test score - Learning Barriers Learning Barriers: Vision - acute vision impairment, requires magnification d/t corneal injury DM vision impairment Tobacco - 30-Day Assessment - Program Goals Tobacco Program Goals: Complete smoking cessation. Attend education classes. Improve Knowledge Test score - Stage of Change Stages of Change:: Action - Learning Barriers Learning Barriers: Participates in education - Family Support Do you have family support?: Yes - Tobacco Use Tobacco Use: Non-smoker Do you use smokeless tobacco?: No - Intervention Smoking Cessation Referral:: No Individual Education/Counseling:: No Education Schedule Given:: Yes - Education Attended class for:: Tobacco triggers, Coronary artery disease, Risk factors, Sexuality, Medical compliance, Cardiac A&P, Angina signs & symptoms Psychosocial - Initial Assess - Target Goals Target Goals: Assess presence or absence of depression. Using a valid screening tool, maximizes coping skills. Positive support system - Psychosocial Test Tool Used:: HANDS Depression Questionnaire - Assistive Devices Fall Risk Assessed:: Yes Psychosocial - 30-Day Assess - Target Goals Target Goals: Assess presence or absence of depression. Using a valid screening tool, maximizes coping skills. Positive support system - Stages of Change Stages of Change:: Action - Psychosocial Test Tool Used:: HANDS Depression Questionnaire - Intervention PS - Interventions: Yes Uses Stress Management Skills, No Referral to Mental Health, No Referral to [facility] Case Management, No Referral to Physician, No Attend Stress Management Classes - Education Attended classes for:: Coping techniques, Signs & symptoms of depression, Stress management, Relaxation techniques - Assistive Devices Assistive Devices:: None Fall Risk Assessed:: Yes
[2018-08-23 08:50] VITALS: BP 140/74
== END 2018-09-07 23:59 ==
LOC: CR 08:00
PROVIDERS: Family Provider Internal Medicine; PCP Internal Medicine; Referring Provider Internal Medicine Cardiovascular Disease; Visit Provider Internal Medicine Cardiovascular Disease
DX: I21.4 Non-ST elevation (NSTEMI) myocardial infarction (principal); I11.0 Hypertensive heart disease with heart failure; I50.31 Acute diastolic (congestive) heart failure; I25.10 Atherosclerotic heart disease of native coronary artery without angina pectoris; E78.5 Hyperlipidemia, unspecified; Z95.5 Presence of coronary angioplasty implant and graft
CPT/HCPCS: 93798

== ENCOUNTER → 2018-09-21 13:21 | Outpatient (CLI) | payer MEDICARE, OTHER, SELFPAY ==
[2018-07-27 09:27] VITALS: BMI 33.4
--- NOTE | 2018-09-21 13:23 | ART_ITS ---
Reason For Study: Claudication Procedure A bilateral lower extremity continuous wave Doppler with analog waveform analysis,segmental pressures,and ankle brachial indexes without exercise. Left Segmental Pressures Left brachial= 169mmHg. Left thigh = 200mmHg. Left calf = 148mmHg. Left posterior tibial artery = 132mmHg. Left dorsalis pedis artery = 114mmHg. Left digit = 84 mmHg. The left dorsalis pedis waveforms are monophasic. The left posterior tibial artery waveforms are biphasic. Right Segmental Pressures Right brachial= 171mmHg. Right thigh = 201mmHg. Right calf = 135mmHg. Right posterior tibial artery = 121mmHg. Right dorsalis pedis artery = 105mmHg. Right digit = 77 mmHg. The right dorsalis pedis waveforms are monophasic. The right posterior tibial artery waveforms are biphasic. Indices The right ankle brachial index by the dorsalis pedis is .61. The right ankle brachial index by the posterior tibial artery is .71. The right digital-brachial index is .45. The left ankle brachial index by the dorsalis pedis is .67. The left ankle brachial index by the posterior tibial artery is .77. The left digital-brachial index is .49. Interpretation Summary Bilateral lower extremity resting indices in the range of vascular claudication. 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 Abnormal bilateral dorsalis pedis doppler waveforms consistent with tibialis anterior/dorsalis pedis stenosis. Ordering Physician: Sylvain Mcdowell Referring Physician: Annette Mckinley M.D. Performed By: Martita Camacho Carlos Manuel
== END ==
PROVIDERS: Family Provider Internal Medicine; PCP Internal Medicine; Referring Provider Internal Medicine Cardiovascular Disease; Visit Provider Internal Medicine Cardiovascular Disease
DX: I73.9 Peripheral vascular disease, unspecified (principal); I21.4 Non-ST elevation (NSTEMI) myocardial infarction; I25.10 Atherosclerotic heart disease of native coronary artery without angina pectoris; E78.5 Hyperlipidemia, unspecified; I11.0 Hypertensive heart disease with heart failure; I50.31 Acute diastolic (congestive) heart failure; Z95.5 Presence of coronary angioplasty implant and graft
CPT/HCPCS: 93923

== ENCOUNTER 2018-10-06 08:00 | Outpatient (RCR) | payer MEDICARE, OTHER, SELFPAY ==
[2018-07-27 09:27] VITALS: BMI 33.4
[2018-09-08 00:19] VITALS: BP 140/74
--- NOTE | 2018-09-20 10:21 | CR.ITP_ITS ---
General Information - General Information Admitting Diagnosis: PCI W/ Stenting - Education/Goals Barriers to Learning: None Cardiac Rehabilitation Goals: 1. Maintain the individual as the primary focus of care. 2. To improve the patient's quality of life. 3. Identification of cardiac risk factors and provide cardiac risk factor management. 4. Enhance the psychosocial status of the patient. 5. Reconditioning enough to allow the patient to resume customary activities. 6. Control symptoms of cardiac disease Scale for measuring improvement of personal goals: Enter appropriate number in Comments. 2 = Unchanged. 3 = Slightly Better. 4 = Moderate Improvement. 5 = Met my Goal Exercise - 60-Day Assessment - Visit Date of Eval: 09/20/18 Session #:: 15 - Stages of Change Stages of Change:: Action - Physician Prescribed Exercise Modalities: Biodyne, NuStep, SciFit Frequency (days/week): 3 Duration (Minutes):: 30-45 Intensity: 60-80% age predicted maximum heart rate reserve METs - Progression: 0.5-1.0 MET, RPE 11-14 WEEK: 2.5 Target Heart Rate:: 106-114 Max HR 85 - Hypertension Resting Blood Pressure:: 150/70 Peak Exercise Blood Pressure:: 170/72 - Intervention Home Exercise/Activity Goal:: Sitting Time <3 hrs/day - Education Goals:: Warm-up, RPE MELISSA Scale, S/S, Safe Exercise, Self-Monitoring - Exercise Program Goals Exercise Program Goals: Aerobic Activity >30 min, B/P <130/80 Nutrition - Initial Assessment - Program Goals Nutrition Program Goals: LDL <70. Total Cholesterol <200. HDL >45. Triglycerides <150. HgbA1C <7%. BMI <25 - Diabetes Do you monitor your blood sugar at home?: Yes Nutrition - 60-Day Assessment - Program Goals Nutrition Program Goals: LDL <70. Total Cholesterol <200. HDL >45. Triglycerides <150. HgbA1C <7%. BMI <25 - Visit Date of Eval: 09/20/18 - Stages of Change Stages of Change:: Action - Diabetes Diabetes:: Yes - Weight Management Weight:: 84.141 kg - Intervention Referral to dietitian:: No Referral to Diabetic Clinic:: No Will attend diet classes:: Yes - Education Attended class for:: Signs & symptoms of hypoglycemia, Signs & symptoms of hyperglycemia, Relate diabetes to coronary artery disease, Healthy eating Tobacco - Initial Assessment - Program Goals Tobacco Program Goals: Complete smoking cessation. Attend education classes. Improve Knowledge Test score - Learning Barriers Learning Barriers: Vision - acute vision impairment, requires magnification d/t corneal injury DM vision impairment Tobacco - 60-Day Assessment - Program Goals Tobacco Program Goals: Complete smoking cessation. Attend education classes. Improve Knowledge Test score - Stage of Change Stages of Change:: Action - Learning Barriers Learning Barriers: Participates in education - Family Support Do you have family support?: Yes - Tobacco Use Tobacco Use: Non-smoker - Intervention Smoking Cessation Referral:: No Individual Education/Counseling:: No Education Schedule Given:: Yes - Education Attended class for:: Tobacco triggers, Coronary artery disease, Risk factors, Sexuality, Medical compliance, Cardiac A&P, Angina signs & symptoms Psychosocial - Initial Assess - Target Goals Target Goals: Assess presence or absence of depression. Using a valid screening tool, maximizes coping skills. Positive support system - Psychosocial Test Tool Used:: HANDS Depression Questionnaire - Assistive Devices Fall Risk Assessed:: Yes Psychosocial - 60-Day Assess - Target Goals Target Goals: Assess presence or absence of depression. Using a valid screening tool, maximizes coping skills. Positive support system - Stages of Change Stages of Change:: Action - Psychosocial Test Tool Used:: HANDS Depression Questionnaire - Intervention PS - Interventions: Yes Attend Stress Management Classes, Yes Uses Stress Management Skills, No Referral to Mental Health, No Referral to [facility] Case Management, No Referral to Physician - Education Attended classes for:: Coping techniques, Signs & symptoms of depression, Stress management, Relaxation techniques - Assistive Devices Assistive Devices:: None Fall Risk Assessed:: Yes
[2018-09-20 10:23] VITALS: BP 150/70; BP 170/72
== END 2018-10-08 23:59 ==
LOC: CR 08:00
PROVIDERS: Family Provider Internal Medicine; PCP Internal Medicine; Referring Provider Internal Medicine Cardiovascular Disease; Visit Provider Internal Medicine Cardiovascular Disease
DX: I21.4 Non-ST elevation (NSTEMI) myocardial infarction (principal); I50.31 Acute diastolic (congestive) heart failure; Z95.5 Presence of coronary angioplasty implant and graft; I25.10 Atherosclerotic heart disease of native coronary artery without angina pectoris; I11.0 Hypertensive heart disease with heart failure; E78.5 Hyperlipidemia, unspecified
CPT/HCPCS: 93798

== ENCOUNTER 2018-11-01 10:13 | Outpatient (RCR) | payer MEDICARE, OTHER, SELFPAY ==
[2018-07-27 09:27] VITALS: BMI 33.4
[2018-10-25 10:28] VITALS: BMI 33.4
== END 2018-11-07 23:59 ==
LOC: DC 10:13
PROVIDERS: Family Provider Internal Medicine; PCP Internal Medicine; Visit Provider Internal Medicine Cardiovascular Disease
DX: E11.9 Type 2 diabetes mellitus without complications (principal); E78.5 Hyperlipidemia, unspecified; I25.10 Atherosclerotic heart disease of native coronary artery without angina pectoris; I11.0 Hypertensive heart disease with heart failure; I50.31 Acute diastolic (congestive) heart failure
CPT/HCPCS: G0108

== ENCOUNTER 2018-11-06 09:15 | Outpatient (RCR) | payer MEDICARE, OTHER, SELFPAY ==
[2018-10-02 14:24] VITALS: BMI 33.4
[2018-10-09 00:22] VITALS: BP 150/70; BP 170/72
--- NOTE | 2018-10-20 10:35 | CR.ITP_ITS ---
General Information - General Information Admitting Diagnosis: PCI with stenting - Education/Goals Cardiac Rehabilitation Goals: 1. Maintain the individual as the primary focus of care. 2. To improve the patient's quality of life. 3. Identification of cardiac risk factors and provide cardiac risk factor management. 4. Enhance the psychosocial status of the patient. 5. Reconditioning enough to allow the patient to resume customary activities. 6. Control symptoms of cardiac disease Scale for measuring improvement of personal goals: Enter appropriate number in Comments. 2 = Unchanged. 3 = Slightly Better. 4 = Moderate Improvement. 5 = Met my Goal Exercise - 90-Day Assessment - Visit Date of Eval: 10/20/18 Session #:: 25 - Stages of Change Stages of Change:: Action - Physician Prescribed Exercise Modalities: Biodyne, NuStep, SciFit Frequency (days/week): 3 Duration (Minutes):: 30-45 Intensity: 60-80% age predicted maximum heart rate reserve METs - Progression: 0.5-1.0 MET, RPE 11-14 WEEK: 2.5 Target Heart Rate:: 106-114 Max HR 78 - Hypertension Resting Blood Pressure:: 150/70 Peak Exercise Blood Pressure:: 168/70 - Intervention Home Exercise/Activity Goal:: Sitting Time <3 hrs/day - Education Goals:: Warm-up, RPE MELISSA Scale, S/S, Safe Exercise, Self-Monitoring - Exercise Program Goals Exercise Program Goals: Aerobic Activity >30 min, B/P <130/80 Nutrition - Initial Assessment - Program Goals Nutrition Program Goals: LDL <70. Total Cholesterol <200. HDL >45. Triglycerides <150. HgbA1C <7%. BMI <25 - Diabetes Do you monitor your blood sugar at home?: Yes Nutrition - 90-Day Assessment - Program Goals Nutrition Program Goals: LDL <70. Total Cholesterol <200. HDL >45. Triglycerides <150. HgbA1C <7%. BMI <25 - Visit Date of Eval: 10/20/18 - Stages of Change Stages of Change:: Action - Weight Management Weight:: 82.327 kg - Intervention Referral to dietitian:: No Referral to Diabetic Clinic:: No Will attend diet classes:: Yes - Education Attended class for:: Signs & symptoms of hypoglycemia, Signs & symptoms of hyperglycemia, Relate diabetes to coronary artery disease, Healthy eating Tobacco - Initial Assessment - Program Goals Tobacco Program Goals: Complete smoking cessation. Attend education classes. Improve Knowledge Test score - Learning Barriers Learning Barriers: Vision - acute vision impairment, requires magnification d/t corneal injury DM vision impairment Tobacco - 90-Day Assessment - Program Goals Tobacco Program Goals: Complete smoking cessation. Attend education classes. Improve Knowledge Test score - Stage of Change Stages of Change:: Action - Learning Barriers Learning Barriers: Participates in education - Family Support Do you have family support?: Yes - Tobacco Use Tobacco Use: Non-smoker Do you use smokeless tobacco?: No - Intervention Smoking Cessation Referral:: No Individual Education/Counseling:: No Education Schedule Given:: Yes - Education Attended class for:: Tobacco triggers, Coronary artery disease, Risk factors, Sexuality, Medical compliance, Cardiac A&P, Angina signs & symptoms Psychosocial - Initial Assess - Target Goals Target Goals: Assess presence or absence of depression. Using a valid screening tool, maximizes coping skills. Positive support system - Psychosocial Test Tool Used:: HANDS Depression Questionnaire - Assistive Devices Fall Risk Assessed:: Yes Psychosocial - 90-Day Assess - Target Goals Target Goals: Assess presence or absence of depression. Using a valid screening tool, maximizes coping skills. Positive support system - Stages of Change Stages of Change:: Action - Psychosocial Test Tool Used:: HANDS Depression Questionnaire - Intervention PS - Interventions: Yes Attend Stress Management Classes, Yes Uses Stress Management Skills, No Referral to Mental Health, No Referral to [facility] Case Management, No Referral to Physician - Education Attended classes for:: Coping techniques, Signs & symptoms of depression, Stress management, Relaxation techniques - Assistive Devices Assistive Devices:: None Fall Risk Assessed:: Yes
[2018-10-20 10:36] VITALS: BP 150/70; BP 168/70
[2018-10-25 10:28] VITALS: BMI 33.4
== END 2018-11-07 23:59 ==
LOC: CR 09:15
PROVIDERS: Family Provider Internal Medicine; PCP Internal Medicine; Referring Provider Internal Medicine Cardiovascular Disease; Visit Provider Internal Medicine Cardiovascular Disease
DX: I21.4 Non-ST elevation (NSTEMI) myocardial infarction (principal); I50.31 Acute diastolic (congestive) heart failure; Z95.5 Presence of coronary angioplasty implant and graft; I25.10 Atherosclerotic heart disease of native coronary artery without angina pectoris; I11.0 Hypertensive heart disease with heart failure; E78.5 Hyperlipidemia, unspecified; E11.9 Type 2 diabetes mellitus without complications
CPT/HCPCS: 93798; G0108

== ENCOUNTER 2018-11-20 09:13 | Outpatient (RCR) | payer MEDICARE, OTHER, SELFPAY ==
[2018-10-25 10:28] VITALS: BMI 33.4
== END 2018-12-08 23:59 ==
LOC: DC 09:13
PROVIDERS: Family Provider Internal Medicine; PCP Internal Medicine; Visit Provider Internal Medicine Cardiovascular Disease
DX: E11.9 Type 2 diabetes mellitus without complications (principal); E78.5 Hyperlipidemia, unspecified; I11.0 Hypertensive heart disease with heart failure; I25.10 Atherosclerotic heart disease of native coronary artery without angina pectoris; I50.31 Acute diastolic (congestive) heart failure; Z71.3 Dietary counseling and surveillance
CPT/HCPCS: 97802

== ENCOUNTER 2018-11-27 08:00 | Outpatient (RCR) | payer MEDICARE, OTHER, SELFPAY ==
[2018-10-25 10:28] VITALS: BMI 33.4
[2018-11-08 00:38] VITALS: BP 150/70; BP 168/70
--- NOTE | 2018-11-20 08:05 | PCM.CR.ITP ---
Exercise - Final/Discharge - Visit Date of Eval: 11/20/18 Session #:: 32 - Stages of Change Stages of Change:: Action - Physician Prescribed Exercise Modalities: NuStep Frequency (days/week): 3 Duration (Minutes):: 30-45 Intensity: 60-80% age predicted maximum heart rate reserve METs - Progression: 0.5-1.0 MET, RPE 11-14 WEEK: 2.5 Target Heart Rate:: 106-114 - Hypertension Do any of the following apply?: Yes Resting Blood Pressure:: 144/76 Peak Exercise Blood Pressure:: 148/80 - Intervention Home Exercise/Activity Goal:: Moderate Exercise 30 min/day x 5 days/wk - Education Goal Progress: Progressing - Exercise Program Goals Exercise Program Goals: Aerobic Activity >30 min Nutrition - Initial Assessment - Program Goals Nutrition Program Goals: LDL <70. Total Cholesterol <200. HDL >45. Triglycerides <150. HgbA1C <7%. BMI <25 - Diabetes Do you monitor your blood sugar at home?: Yes Nutrition - Final Assessment - Program Goals Nutrition Program Goals: LDL <70. Total Cholesterol <200. HDL >45. Triglycerides <150. HgbA1C <7%. BMI <25 - Visit Date of Eval: 11/20/18 - Stages of Change Stages of Change:: Relapse - Diabetes Diabetes:: Yes Insulin: No Non-Insulin Dependent?: No - Weight Management Height: 5 ft 2.02 in Weight:: 183 lb - Intervention Referral to dietitian:: No Referral to Diabetic Clinic:: No Will attend diet classes:: Yes - Education Education Goal Reached?: Yes Tobacco - Initial Assessment - Program Goals Tobacco Program Goals: Complete smoking cessation. Attend education classes. Improve Knowledge Test score - Learning Barriers Learning Barriers: Vision - acute vision impairment, requires magnification d/t corneal injury DM vision impairment Tobacco - Final Assessment - Program Goals Tobacco Program Goals: Complete smoking cessation. Attend education classes. Improve Knowledge Test score - Stage of Change Stages of Change:: Action - Family Support Do you have family support?: Yes - Tobacco Use Tobacco Use: Non-smoker Do you use smokeless tobacco?: No - Intervention Smoking Cessation Referral:: No Individual Education/Counseling:: No Education Schedule Given:: Yes - Education Education Goal Reached?: Yes Psychosocial - Initial Assess - Target Goals Target Goals: Assess presence or absence of depression. Using a valid screening tool, maximizes coping skills. Positive support system - Psychosocial Test Tool Used:: HANDS Depression Questionnaire - Assistive Devices Fall Risk Assessed:: Yes Psychosocial - Final Assessmen - Target Goals Target Goals: Assess presence or absence of depression. Using a valid screening tool, maximizes coping skills. Positive support system - Stages of Change Stages of Change:: Relapse - Psychosocial Test Tool Used:: HANDS Depression Questionnaire - Intervention PS - Interventions: Yes Attend Stress Management Classes, Yes Uses Stress Management Skills, No Referral to Mental Health, No Referral to [facility] Case Management, No Referral to Physician - Education Education Goal Reached?: Yes - Patient/Program Goal Preventative Medication(s):: Aspirin, Clopidogrel, Beta ramón, Statin/lipid - Assistive Devices Assistive Devices:: None Fall Risk Assessed:: Yes Patient Health Questionnaire Discharge Assessment 1. Little interest or pleasure in doing things: Several days 2. Feeling down, depressed, or hopeless: Several days 3. Trouble falling or staying asleep, or sleeping too much: Not at all 4. Feeling tired or having little energy: Several days 5. Poor appetite or overeating: Not at all 6. Feeling bad about yourself -- or that you are a failure or have let yourself or your family down: Not at all 7. Trouble concentrating on things, such as reading the newspaper or watching television: Not at all 8. Moving or speaking so slowly that other people could have noticed. Or the opposite - being so fidgety or restless that you have been moving around a lot more than usual: Several days 9. Thoughts that you would be better off , or of hurting yourself in some way: Not at all How difficult have these problems made it for you to do your work, take care of things at home, or get along with other people?: Somewhat difficult Total Score: 4 JANE-Q SV Test - Statements CAD is a disease of the arteries in the heart: False Examples of risk factors for heart disease: True Angina is chest pain or discomfort: True The benefits of resistance training include: True Eating more meat and dairy products: False Anti-platelet medications such as aspirin are important: True The only effective way to manage stress: True An exercise warm-up slowly increases heart rate: True Prepared, processed foods usually have high sodium: True Depression is common after a heart attack: True The statin medications lower cholesterol: True To control blood pressure, lower the amount of sodium: True If someone gets chest discomfort during walking: False Transfats are partially hydrogenated vegetable oils: True Sleep apnea that is not treated increases the risk: True To control cholesterol, one should become a vegetarian: False Someone knows if he/she is exercising at the right level: True Diabetes cannot be prevented with exercise & health eating: False Stress is a large risk for heart attack: True A diet that can help lower blood pressure is rich in: True - Total Score Total Correct Responses: 18 Self-Efficacy Discharge Assessment We would like to know how confident you are in doing certain activities. Please select your confidence level for:: Select your confidence level for the following using the scale 1-10 where 1 is not at all confident and 10 is totally confident. Your score is the average of all 6 responses. Fatigue: How confident are you that you can keep the fatigue caused by your disease from interfering with the things you want to do? Select Number: 8 Physical Discomfort or Pain: How confident are you that you can keep the physical discomfort or pain of your disease from interfering with the things you want to do? Select Number: 8 Emotional Distress: How confident are you that you can keep the emotional distress caused by your disease from interfering with the things you want to do? Select Number: 8 Other Symptoms or Health Problems: How confident are you that you can keep other symptoms or health problems from interfering with the things you want to do? Select Number: 9 Different Tasks and Activities: How confident are you that you can do the different tasks and activities needed to manage your health condition so as to reduce your need to see a doctor? Select Number: 10 Medication: How confident are you that you can do things other than just taking medication to reduce how much your illness affects your everyday life? Select Number: 9 Total Score:: 8 Nutrition Survey - Nutrition Survey Instructions Scoring Instructions: Scoring is as follows: Yes = 1 points. No = 0 point. Patient score that is >/=12 is considered to be at potential nutritional risk and could benefit from a referral to a registered dietitian. - Nutrition Survey Discharge Have you lost >10 lbs over the past 2 months without trying?: No Are you following a special diet at home for diabetes, low fat, or low salt?: Yes Are you interested in meeting with a dietitian for help understanding your diet?: No Do you eat less than 3 meals a day?: No Do you eat fatty meats (hamilton, sausage, ribs, etc), fried foods, desserts, large amounts of salad dressings, margarine, butter, or cheese most days?: No Do you have food allergies? [Enter types in comment field]: No Do you eat in restaurants more than 3 times a week?: No Do you season food with salt, seasoning salt, or garlic salt?: No Do you used canned, boxed, frozen meals, or soups, seasoning packets?: Yes Total Score:: 2
[2018-11-20 08:12] VITALS: BP 144/76; BP 148/80
== END 2018-12-08 23:59 ==
LOC: CR 08:00
PROVIDERS: Family Provider Internal Medicine; PCP Internal Medicine; Referring Provider Internal Medicine Cardiovascular Disease; Visit Provider Internal Medicine Cardiovascular Disease
DX: I21.4 Non-ST elevation (NSTEMI) myocardial infarction (principal); I50.31 Acute diastolic (congestive) heart failure; Z95.5 Presence of coronary angioplasty implant and graft; I25.10 Atherosclerotic heart disease of native coronary artery without angina pectoris; I11.0 Hypertensive heart disease with heart failure; E78.5 Hyperlipidemia, unspecified
CPT/HCPCS: 93798

== ENCOUNTER 2019-02-28 08:55 | Day surgery (SDC) | payer MEDICARE, OTHER, SELFPAY ==
--- NOTE | 2019-01-22 02:45 | HP_ITS ---
Intake Vital Signs 01/22/19 Body Mass Index (BMI) 33.4 01/22/19 Height 5 ft 2 in 01/22/19 Weight: 183 lb 01/22/19 Body Mass Index (BMI) 33.5 01/22/19 Blood Pressure 163/78 H 01/22/19 Blood Pressure Location Rt brachial 01/22/19 Respiratory Rate 18 01/22/19 Pulse Rate 80 01/22/19 Pulse Source Monitor 01/22/19 Temperature 98.3 F 01/22/19 Pulse Ox 95 01/22/19 Oxygen Delivery Method room air Intake Visit Reasons: Re-eval Legs/Discuss APLL Chief Complaint: Follow up visit Bone Cooking Operator Required: No Is patient in pain?: No Allergies metformin Allergy (Verified 01/22/19 14:06) Unknown Medications insulin aspart (U-100) 100 unit/mL (3 mL) subcutaneous pen 10 unit SC TIDCM ml 07/26/17 [History Confirmed 01/22/19] Insulin Detemir [Levemir FlexPen] 10 units SQ QHS 06/22/18 [History Confirmed 01/22/19] Insulin Detemir [Levemir FlexPen] 17 units SQ DAILY 06/22/18 [History Confirmed 01/22/19] Nitroglycerin (INPATIENT USE) [Nitrostat] 0.4 mg SUBLINGUAL Q5M PRN 06/22/18 [History Confirmed 01/22/19] aspirin 81 mg tablet,delayed release 81 mg PO DAILY@0800 #90 tab 07/21/18 [Rx Confirmed 01/22/19] clopidogrel 75 mg tablet 75 mg PO DAILY #90 tab 07/21/18 [Rx Confirmed 01/22/19] hydrochlorothiazide 12.5 mg capsule 12.5 mg PO DAILY 07/21/18 [History Confirmed 01/22/19] metoprolol succinate ER 50 mg tablet,extended release 24 hr 50 mg PO DAILY #90 tab 07/21/18 [Rx Confirmed 01/22/19] simvastatin 20 mg tablet 20 mg PO QHS #90 tab 07/21/18 [Rx Confirmed 01/22/19] amlodipine 10 mg tablet 10 mg PO DAILY #30 tab 09/11/18 [Rx Confirmed 01/22/19] isosorbide mononitrate ER 60 mg tablet,extended release 24 hr 60 mg PO DAILY #30 tab 09/11/18 [Rx Confirmed 01/22/19] [facility] Medical History PAD (peripheral artery disease) (Acute) Non-ST elevation (NSTEMI) myocardial infarction (Resolved 06/22/18) Acute diastolic (congestive) heart failure (Acute) Atherosclerosis of coronary artery of [place] heart without angina pectoris (Chronic) Essential (primary) hypertension (Chronic) Hyperlipidemia (Chronic) Anxiety (Acute) Back problem (Acute) Hepatitis (Acute) Right wrist pain (Acute) Corneal injury (Chronic) Diabetes type 2, controlled (Resolved) Surgical History History of coronary artery stent placement (Resolved 06/23/18) History of total abdominal hysterectomy (Acute) S/P colonoscopy (Acute) Family History Mother Arthritis Father Arthritis Social History (Updated 01/22/19 @ 14:45 by Watson Alfredo MD) Smoking Status: Former smoker second hand exposure: No alcohol intake: never substance use type: does not use HPI HPI HPI: NIKUNJ LORD, is a 68 F who presents to the office today for HPI HPI Surgical H&P: Yes HPI: NIKUNJ LORD, is a 68 F who presents to the office today for surgical follow-up regarding bilateral lower extremity claudication. 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 Cooking Operator Required: No Is patient in pain?: Yes (bilat legs) Pain scale (1-10): 10 Allergies metformin Allergy (Verified 10/02/18 14:24) Unknown Medications insulin aspart U- 100 100 unit/mL subcutaneous pen 10 unit SC TIDCM ml 07/26/17 [History Confirmed 10/02/18] Insulin Detemir [Levemir FlexPen] 10 units SQ QHS 06/22/18 [History Confirmed 10/02/18] Insulin Detemir [Levemir FlexPen] 17 units SQ DAILY 06/22/18 [History Confirmed 10/02/18] Nitroglycerin [Nitrostat] 0.4 mg SUBLINGUAL Q5M PRN 06/22/18 [History Confirmed 10/02/18] aspirin 81 mg tablet,delayed release 81 mg PO DAILY@0800 #90 tab 07/21/18 [Rx Confirmed 10/02/18] clopidogrel 75 mg tablet 75 mg PO DAILY #90 tab 07/21/18 [Rx Confirmed 10/02/18] hydrochlorothiazide 12.5 mg capsule 12.5 mg PO DAILY 07/21/18 [History Confirmed 10/02/18] metoprolol succinate ER 50 mg tablet,extended release 24 hr 50 mg PO DAILY #90 tab 07/21/18 [Rx Confirmed 10/02/18] simvastatin 20 mg tablet 20 mg PO QHS #90 tab 07/21/18 [Rx Confirmed 10/02/18] amlodipine 10 mg tablet 10 mg PO DAILY #30 tab 09/11/18 [Rx Confirmed 10/02/18] isosorbide mononitrate ER 60 mg tablet,extended release 24 hr 60 mg PO DAILY #30 tab 09/11/18 [Rx Confirmed 10/02/18] [facility] Medical History Non-ST elevation (NSTEMI) myocardial infarction (Resolved 06/22/18) Acute diastolic (congestive) heart failure (Acute) Atherosclerosis of coronary artery of [place] heart without angina pectoris (Chronic) Essential (primary) hypertension (Chronic) Hyperlipidemia (Chronic) Anxiety (Acute) Back problem (Acute) Corneal injury (Acute) Diabetes type 2, controlled (Acute) Hepatitis (Acute) Right wrist pain (Acute) Surgical History History of coronary artery stent placement (Resolved 06/23/18) History of total abdominal hysterectomy (Acute) S/P colonoscopy (Acute) Family History Mother Arthritis Father Arthritis Social History Smoking Status: Former smoker second hand exposure: No alcohol intake: never substance use type: does not use HPI HPI Surgical H&P: No HPI: NIKUNJ LORD, is a 68 F who presents to the office today for surgical consultation regarding bilateral lower extremity pain at rest and with walking. The patient is referred by Dr. Sylvain Mcdowell and her primary care physician Dr. Annette Mckinley. A written copy of my surgical consult recommendations will be returned to each. Patient states that May 2018 she was admitted with accelerated hypertension. She states that that led to a cardiac catheterization with coronary stents. Apparently she had hoped that this would assist with her lower extremity complaints. The patient states that she has trouble standing without pain emanating from her low back radiating around her abdomen and down her legs. It is so severe that she has to sit. She is able to walk but she additionally complains of severe leg pain and fatigue. She is a long-term diabetic with hypertension. She stopped smoking cigarettes 20 years ago and prior to that was 1 pack/week smoker. She does have hyperlipidemia. On September 21, 2018 at the [facility] she had a resting PVRs. The right DP and PT index at rest were 0.61 and 0.71. The DBI was 0.45. The left DIONISIO for the DP and PT was 0.67 and 0.77. The left TBI was 0.49. This was felt to be in the range of vascular claudication. There is a suspicion of possible bilateral superficial femoral artery occlusive disease. Additional abnormal waveforms identified suggesting possible involvement of the tibialis anterior/dorsalis pedis. The patient states that she is able to lie supine in bed without foot or calf discomfort. When walking she notes that her entire low back hips thighs legs fatigue ROS General General: Yes fatigue; no weight change, appetite, colon cancer, breast cancer or weakness HEENT HEENT: No difficulty swallowing, eye injury, eye surgery, swollen glands or hoarseness Endo Endocrine: Yes diabetes mellitus; no thyroid disease, thyroid cancer, Hair loss, heat intolerance or cold intolerance Skin Skin: No rash or changing moles Breast Breast: No left breast lump, right breast lump, nipple discharge, breast pain, abnormal mammogram, abnormal US or breast enlargement Musc Musculoskeletal: Yes back problems and arthritis; no rheumatoid arthritis, gout or joint pain Cardio Cardiovascular: Yes heart disease, high blood pressure, heart attack and heart stent; no murmur, pacemaker, atrial fibrillation, palpitations, shortness of breat with exertion or chest pain Psych Psychiatric: No depression, anxiety or hearing voices Resp Respiratory: Yes shortness of breath, No sleep apnea, No cough, No COPD, No asthma, No emphysema, No wheezing Gastro Gastrointestinal: No abdominal pain, No nausea or vomiting, No diarrhea, No constipation, No blood in stool, No acid reflux, No hemorrhoids, No ulcers, No gallbladder problem, No black,tarry stools Thanh Hematologic: No blood thinners, No blood disorders, No bleeding, No anemia, No blood clots Neuro Neurologic: No system reviewed and no additional complaints, except as docu, No as per HPI, No abnormal walking, No abnormal hearing, No abnormal movements, No abnormal speech, No behavioral changes, No burning sensations, No confusion, No seizure-like activity, No unsteadiness, No dizziness, No localized weakness, No frequent falls, No headache(s), No lack of coordination, No loss of vision, No memory loss, No numbness, No other visual disturbances, No radiating pain, No restless legs, No sensory deficit, No fainting, No tingling, No tremor(s), No weakness, No other Exam Const General: cooperative, other (Patient appears to be older than stated age) Nutritional Appearance: overweight Orientation: alert [facility] Head: normal to inspection Chest Chest palpation & inspection: normal inspection of the chest Breast Palpation: No nipple discharge Resp Effort & Inspection: normal respiratory effort Auscultation: clear to auscultation bilaterally Cardio Rate: regular rate Rhythm: regular rhythm Heart Sounds: no murmurs Other: Bilateral radials are 1+. Bilateral brachials 2+. Bilateral carotids 3+ I do not detect carotid bruits. Bilateral femorals 3+. Bilateral popliteals 2+. Bilateral DP and PTs 1+ GI Palpation: soft, no hepatosplenomegaly Auscultation: normal bowel sounds Skin Wounds: no wounds Extrem General: no calf tenderness bilaterally Other: Bilateral feet are warm, pink, hypertrophic nails Assessment & Plan Problems 1. Claudication I73.9 2. PAD (peripheral artery disease) I73.9 Plan 68-year-old female. Clearly on noninvasive testing and clinical examination she has findings that would be consistent with peripheral arterial occlusive disease in the range of vascular claudication. However the patient's symptoms and complaints do not completely coincide with the clinical findings. The patient's primary complaint is that she has trouble standing without pain radiating from her back down her thighs and posterior legs to where she has complete fatigue. She does get fatigue when she walks also but she complains of complete leg fatigue bilaterally buttock hips calves. This does not correlate well with her clinical examination with intact femoral pulses and it does not correlate with her noninvasive testing suggesting adequate aorto iliac inflow. I have concerned that the patient has degenerative disc disease and a degree of nerve compression. Possibly there is also component of spinal stenosis. I do not have an answer to that. ROS General General: Yes fatigue; no weight change, appetite, colon cancer, breast cancer or weakness HEENT HEENT: No difficulty swallowing, eye injury, eye surgery, swollen glands or hoarseness Endo Endocrine: Yes diabetes mellitus; no thyroid disease, thyroid cancer, Hair loss, heat intolerance or cold intolerance Skin Skin: No rash or changing moles Breast Breast: No left breast lump, right breast lump, nipple discharge, breast pain, abnormal mammogram, abnormal US or breast enlargement Musc Musculoskeletal: Yes back problems and arthritis; no rheumatoid arthritis, gout or joint pain Cardio Cardiovascular: Yes heart disease, high blood pressure, heart attack and heart stent; no murmur, pacemaker, atrial fibrillation, palpitations, shortness of breat with exertion or chest pain Psych Psychiatric: No depression, anxiety or hearing voices Resp Respiratory: Yes shortness of breath, No sleep apnea, No cough, No COPD, No asthma, No emphysema, No wheezing Gastro Gastrointestinal: No abdominal pain, No nausea or vomiting, No diarrhea, No constipation, No blood in stool, No acid reflux, No hemorrhoids, No ulcers, No gallbladder problem, No black,tarry stools Thanh Hematologic: No blood thinners, No blood disorders, No bleeding, No anemia, No blood clots Neuro Neurologic: No weakness Exam Chest Breast Palpation: No nipple discharge Cardio Heart Sounds: no murmurs Other: Bilateral radials and brachials and carotids are 3+. No carotid bruits. Bilateral femorals difficult to palpate at least 2+. Bilateral popliteals 2+. Left DP and PT 1+. Right DP and PT difficult to palpate Assessment & Plan Problems 1. PAD (peripheral artery disease) I73.9 Plan It is of note that on today's examination the patient is very superficially tender to palpation. I was trying to palpate pulses in her feet popliteal and groin area. Nursing aerial erector was available during the procedure. Upon gentle palpation of her pulse the patient literally would jump from the table. She does have ongoing follow-up with Dr. Lopez Mao regarding the spurs in her back. Patient is also been evaluated by her primary care physician Dr. Annette Mckinley. The patient states that she has had nerve conduction tests which were normal. She is very much interested in pursuing every intervention possible in order to make her legs better. I have offered her a abdominal pelvic left lower extremity arteriogram via retrograde right common femoral artery approach. We discussed potential volar endovascular intervention with angioplasty or stenting or atherectomy. Absolutely no guarantees of success have been offered. She has had an opportunity to ask and have questions answered. We will schedule and proceed at her discretion. CC: Dr. Annette Mckinley and Dr. Lopez Alfredo M.D., F.A.C.S. Coding Level of Care Code Off vis,est,level 3 Diagnoses PAD (peripheral artery disease) I73.9 01/22/19 1445 <Electronically signed by Watson prescott MD> Date _ Watson Alfredo MD I have re-examined the patient. There are no clinical changes since date of exam.
[2019-01-22 14:07] VITALS: BMI 33.4
[2019-02-19 10:57] LABS: Hematocrit 41.2 % (37-47); Mean Corp Hgb Conc 31.6 g/dL (32-36); Mean Corpuscular Hgb 25.5 pg (27.0-32.0); Mean Corpuscular Volume 80.8 fL (81-99); Mean Platelet Vol. 10.7 fl (6.2-12.0); Platelet Count 192 K/mm3 (150-450); RBC Distribution Width CV 14.5 % (11.6-14.6); RBC Distribution Width SD 42.2 fl (35.1-43.9); White Blood Count 6.9 K/mm3 (4.4-11.0)
[2019-02-19 11:27] LABS: Anion Gap 6 (5-15); BUN 23 mg/dL (7-18); Calcium,Total 8.6 mg/dL (8.5-10.1); Chloride 107 mmol/L (98-107); Creatinine, Serum 1.21 mg/dL (0.55-1.02); EST Glomerular Filtration Rate 47 mL/min (>60); Est Glom Filt Rate - Afr Amer 57 mL/min (>60); Glucose 205 mg/dL (74-106); Sodium Level 139 mmol/L (136-145)
[2019-02-28] VITALS (8 sets, daily range): BP systolic 137–163; BP diastolic 71–84; PULSE 69–77; RESP 14–16; TEMP 36.7–36.8; O2SAT 96–100; BMI 34.7
--- NOTE | 2019-02-28 10:32 | HP.PCM_ITS ---
Problem List (1) Claudication Status: Acute (2) PAD (peripheral artery disease) Status: Acute History and Physical Date of Admission: 02/28/19 Patient is a 68 y/o female I am following for PAD and left lower extremity claudication. She presents for an update history and physical. She denies recent hospitalizations or illnesses since last visit. She denies new medications. She notes her last dose of Plavix was yesterday. She has discontinued aspirin several weeks ago due to nose bleeds. Patient's previous history per Dr. Alfredo: NIKUNJ LORD, is a 68 F who presents to the office today for surgical consultation regarding bilateral lower extremity pain at rest and with walking. The patient is referred by Dr. Sylvain Mcdowell and her primary care physician Dr. Annette Mckinley. A written copy of my surgical consult recommendations will be returned to each. Patient states that May 2018 she was admitted with accelerated hypertension. She states that that led to a cardiac catheterization with coronary stents. Apparently she had hoped that this would assist with her lower extremity complaints. The patient states that she has trouble standing without pain emanating from her low back radiating around her abdomen and down her legs. It is so severe that she has to sit. She is able to walk but she additionally complains of severe leg pain and fatigue. She is a long-term diabetic with hypertension. She stopped smoking cigarettes 20 years ago and prior to that was 1 pack/week smoker. She does have hyperlipidemia. On September 21, 2018 at the [facility] she had a resting PVRs. The right DP and PT index at rest were 0.61 and 0.71. The DBI was 0.45. The left DIONISIO for the DP and PT was 0.67 and 0.77. The left TBI was 0.49. This was felt to be in the range of vascular claudication. There is a suspicion of possible bilateral superficial femoral artery occlusive disease. Additional abnormal waveforms identified suggesting possible involvement of the tibialis anterior/dorsalis pedis. The patient states that she is able to lie supine in bed without foot or calf discomfort. When walking she notes that her entire low back hips thighs legs fatigue 68-year-old female. Clearly on noninvasive testing and clinical examination she has findings that would be consistent with peripheral arterial occlusive disease in the range of vascular claudication. However the patient's symptoms and complaints do not completely coincide with the clinical findings. The patient's primary complaint is that she has trouble standing without pain radiating from her back down her thighs and posterior legs to where she has complete fatigue. She does get fatigue when she walks also but she complains of complete leg fatigue bilaterally buttock hips calves. This does not correlate well with her clinical examination with intact femoral pulses and it does not correlate with her noninvasive testing suggesting adequate aorto iliac inflow. I have concerned that the patient has degenerative disc disease and a degree of nerve compression. Possibly there is also component of spinal stenosis. I do not have an answer to that. It is of note that on today's examination the patient is very superficially te nder to palpation. I was trying to palpate pulses in her feet popliteal and groin area. Nursing housekeeping supervisor was available during the procedure. Upon gentle palpation of her pulse the patient literally would jump from the table. She does have ongoing follow-up with Dr. Lopez Mao regarding the spurs in her back. Patient is also been evaluated by her primary care physician Dr. Annette Mckinley. The patient states that she has had nerve conduction tests which were normal. She is very much interested in pursuing every intervention possible in order to make her legs better. I have offered her a abdominal pelvic left lower extremity arteriogram via retrograde right common femoral artery approach. We discussed potential volar endovascular intervention with angioplasty or stenting or atherectomy. Absolutely no guarantees of success have been offered. She has had an opportunity to ask and have questions answered. We will schedule and proceed at her discretion. Intake Vital Signs 02/28/19 Body Mass Index (BMI) 33.4 02/28/19 Height 5 ft 1 in 02/28/19 Weight: 184 lb 02/28/19 Body Mass Index (BMI) 34.8 02/28/19 Blood Pressure 163/78 H 02/28/19 Blood Pressure Location Rt brachial 02/28/19 Respiratory Rate 18 02/28/19 Pulse Rate 80 02/28/19 Pulse Source Monitor 02/28/19 Temperature 98.3 F 02/28/19 Pulse Ox 95 02/28/19 Oxygen Delivery Method room air Intake Visit Reasons: Re-eval Legs/Discuss APLL Chief Complaint: Follow up visit Senior Cytogenetic Technologist Required: No Is patient in pain?: No Allergies metformin Allergy (Verified 01/22/19 14:06) Unknown Medications insulin aspart (U-100) 100 unit/mL (3 mL) subcutaneous pen 10 unit SC TIDCM ml 07/26/17 [History Confirmed 01/22/19] Insulin Detemir [Levemir FlexPen] 10 units SQ QHS 06/22/18 [History Confirmed 01/22/19] Insulin Detemir [Levemir FlexPen] 17 units SQ DAILY 06/22/18 [History Confirmed 01/22/19] Nitroglycerin (INPATIENT USE) [Nitrostat] 0.4 mg SUBLINGUAL Q5M PRN 06/22/18 [History Confirmed 01/22/19] aspirin 81 mg tablet,delayed release 81 mg PO DAILY@0800 #90 tab 07/21/18 [Rx Confirmed 01/22/19] clopidogrel 75 mg tablet 75 mg PO DAILY #90 tab 07/21/18 [Rx Confirmed 01/22/19] hydrochlorothiazide 12.5 mg capsule 12.5 mg PO DAILY 07/21/18 [History Confirmed 01/22/19] metoprolol succinate ER 50 mg tablet,extended release 24 hr 50 mg PO DAILY #90 tab 07/21/18 [Rx Confirmed 01/22/19] simvastatin 20 mg tablet 20 mg PO QHS #90 tab 07/21/18 [Rx Confirmed 01/22/19] amlodipine 10 mg tablet 10 mg PO DAILY #30 tab 09/11/18 [Rx Confirmed 01/22/19] isosorbide mononitrate ER 60 mg tablet,extended release 24 hr 60 mg PO DAILY #30 tab 09/11/18 [Rx Confirmed 01/22/19] [facility] Medical History PAD (peripheral artery disease) (Acute) Non-ST elevation (NSTEMI) myocardial infarction (Resolved 06/22/18) Acute diastolic (congestive) heart failure (Acute) Atherosclerosis of coronary artery of [place] heart without angina pectoris (Chronic) Essential (primary) hypertension (Chronic) Hyperlipidemia (Chronic) Anxiety (Acute) Back problem (Acute) Hepatitis (Acute) Right wrist pain (Acute) Corneal injury (Chronic) Diabetes type 2, controlled (Resolved) Surgical History History of coronary artery stent placement (Resolved 06/23/18) History of total abdominal hysterectomy (Acute) S/P colonoscopy (Acute) Family History Mother Arthritis Father Arthritis Social History (Updated 01/22/19 @ 14:45 by Watson Alfredo MD) Smoking Status: Former smoker second hand exposure: No alcohol intake: never substance use type: does not use ROS General General: Yes fatigue; no weight change, appetite, colon cancer, breast cancer or weakness HEENT HEENT: No difficulty swallowing, eye injury, eye surgery, swollen glands or hoarseness Endo Endocrine: Yes diabetes mellitus; no thyroid disease, thyroid cancer, Hair loss, heat intolerance or cold intolerance Skin Skin: No rash or changing moles Breast Breast: No left breast lump, right breast lump, nipple discharge, breast pain, abnormal mammogram, abnormal US or breast enlargement Musc Musculoskeletal: Yes back problems and arthritis; no rheumatoid arthritis, gout or joint pain Cardio Cardiovascular: Yes heart disease, high blood pressure, heart attack and heart stent; no murmur, pacemaker, atrial fibrillation, palpitations, shortness of breat with exertion or chest pain Psych Psychiatric: No depression, anxiety or hearing voices Resp Respiratory: Yes shortness of breath, No sleep apnea, No cough, No COPD, No as thma, No emphysema, No wheezing Gastro Gastrointestinal: No abdominal pain, No nausea or vomiting, No diarrhea, No constipation, No blood in stool, No acid reflux, No hemorrhoids, No ulcers, No gallbladder problem, No black,tarry stools Thanh Hematologic: No blood thinners, No blood disorders, No bleeding, No anemia, No blood clots Neuro Neurologic: No system reviewed and no additional complaints, except as docu, No as per HPI, No abnormal walking, No abnormal hearing, No abnormal movements, No abnormal speech, No behavioral changes, No burning sensations, No confusion, No seizure-like activity, No unsteadiness, No dizziness, No localized weakness, No frequent falls, No headache(s), No lack of coordination, No loss of vision, No memory loss, No numbness, No other visual disturbances, No radiating pain, No restless legs, No sensory deficit, No fainting, No tingling, No tremor(s), No weakness, No other Exam Const General: cooperative, other (Patient appears to be older than stated age) Nutritional Appearance: overweight Orientation: alert [facility] Head: normal to inspection Chest Chest palpation & inspection: normal inspection of the chest Breast Palpation: No nipple discharge Resp Effort & Inspection: normal respiratory effort Auscultation: clear to auscultation bilaterally Cardio Rate: regular rate Rhythm: regular rhythm Heart Sounds: no murmurs Other: Bilateral radials are 1+. Bilateral brachials 2+. Bilateral carotids 3+ I do not detect carotid bruits. Bilateral femorals 3+. Bilateral popliteals 2+. Bilateral DP and PTs 1+ GI Palpation: soft, no hepatosplenomegaly Auscultation: normal bowel sounds Skin Wounds: no wounds Extrem General: no calf tenderness bilaterally Other: Bilateral feet are warm, pink, hypertrophic nails Impression: Peripheral arterial disease with left lower extremity claudication Plan: Dr. Alfredo will plan to perform an abdominal pelvic left lower extremity arteriogram via retrograde right common femoral artery approach. Patient has ahd the opportunity to ask and have questions answered. Patient verbally understands and agrees to proceed with the plan. Code Visit Inpatient E&M: 73667 Subs Hosp L1 - No charge update H&P
[2019-02-28 13:00] LABS: ACT Activated Clotting Time 131 sec (74-137)
[2019-02-28 13:00] LABS: ACT Activated Clotting Time 213 sec (74-137)
[2019-02-28 13:00] LABS: Bedside Glucose 167 mg/dL (70-110)
[2019-02-28 13:00] LABS: ACT Activated Clotting Time 252 sec (74-137)
--- NOTE | 2019-02-28 13:17 | OP.PCM_ITS ---
Problem List (1) PAD (peripheral artery disease) Status: Acute Report of Operation Date of Procedure: 02/28/19 Pre-Operative Diagnosis: Quality of life limiting bilateral lower extremity peripheral vascular occlusive disease Post-Operative Diagnosis: Multisegmental left lower extremity arterial occlusive disease with occlusion of the left anterior tibial, severe stenosis of the left mid peroneal, severe stenosis of the proximal left posterior tibial, severe calcific disease of the left mid distal superficial femoral artery Surgery/Procedure Performed:: Abdominal pelvic left lower extremity arteriogram with selective access to the left peroneal and left posterior tibial with left peroneal 3 x 40 mm angioplasty and proximal left posterior tibial 3 x 40 mm angioplasty and left superficial femoral LXM Turbo Hawk atherectomy and 4 x 80 mm ever cross angioplasty Description of Surgical Findings:: Timeout and informed consent was obtained. 68-year-old female was taken to the special procedure lab placed on the table. She received 50 mcg fentanyl and 2 mg of Versed is intravenous sedation. The right groin was sterilely prepped draped. Ultrasound was used to identify the right common femoral artery. Under ultrasound guidance 2% lidocaine was instilled total 10 cc was used followed by Seldinger wire advancement. A 5 English short sheath catheter was advanced over a J-wire. An 035 angled Glidewire was used to place a 5 English universal flush catheter into the infrarenal abdominal aorta. Using Visipaque contrast 3 to 15 cc a second for 15 cc an AP aortogram was obtained. Using vein Glidewire the flush catheter was advanced into the left proximal superficial femoral artery. Static views were then obtained of the left lower extremity. Having achieved that an 035 Magic wire was placed in the left superficial femoral artery and then the 5 English sheath was removed and a 7 English destination sheath was placed. I was able to get an angled Glidewire past the area of occlusive disease of the left superficial femoral artery and advanced a 4 English angled glide cath. The patient received 9000 units of heparin and then based upon ACT measurements received an additional 1000 units of heparin in the procedure. A 5 mm spiral device was placed into the left popliteal. LXM Turbo Hawk atherectomy was attempted of the left mid to distal superficial femoral artery just proximal to Garret's canal. Significant difficulty was achieved and obtaining adequate atherectomy. I then placed a 3 x 40 mm Powerflex balloon to balloon angioplasty then reinserted the turbo Hawk. Despite this secondary to the severe calcific and irregular nature of the disease I could not get what I felt was truly adequate atherectomy. I then performed a 4 x 8 mm or ever cross angioplasty of this area. Controlled dissection was viewed and by keeping the balloon inflated to 3 minutes at lower pressures I was able to get in-line flow. I then was able to advance an 035 Glidewire into the left posterior tibial artery and I used the 3 x 40 m Powerflex balloon only to perform angioplasty of the very proximal portion of that vessel. Having achieved that was then laced the angled Gl idewire into the left peroneal artery and performed 3 x 40 mm balloon angioplasty of the mid left peroneal only up to a pressure of 5 cedric of pressure. Completion views now demonstrated improvement in all areas. Sheath was pulled back in an 035 Magic wire was placed. A Perclose device was placed in the right groin hemostasis was achieved and additional pressure was held for hemostasis. No apparent complication. There was a palpable left popliteal pulse at the completion and dopplerable left posterior tibial and peroneal. Total contrast used was 50 cc Images demonstrate a widely patent abdominal aorta renal arteries bilateral internal and external iliacs. Left common femoral profundofemoral and proximal superficial femoral widely patent. There is an area about 6 cm long of severe irregular stenosis of the left mid to distal superficial femoral artery just proximal to Garret's canal. The popliteal is patent. There is a high-grade 90% stenosis of the very proximal left posterior tibial. There is a high-grade area of about 4 cm of up to 90% stenosis of the left mid peroneal. There is occlusion of the left anterior tibial. Subsequent to the atherectomy and angioplasty of the superficial femoral artery there is in-line flow noted with [id number] dissection noted. No extravasation. Subsequent to the angioplasty of the left posterior tibial and peroneal there is improved flow noted with the left posterior tibial and peroneal reaching the dorsum of the foot with digital flow seen. Impression Multisegmental occlusive disease involving the left lower extremity with occlusion of the anterior tibial severe stenosis of the left mid peroneal severe stenosis of the proximal left posterior tibial and irregular severe disease of the left superficial femoral. The left superficial femoral and posterior tibial and peroneal are all improved subsequent to intervention. The patient will be maintained on her clopidogrel therapy. Office follow-up was planned. It would then be investigated as to whether this intervention makes improvement in her symptom complex of difficulty with standing because of pain. Watson Alfredo M.D., F.A.C.S. Type of Anesthesia:: IV Sedation, Local
[2019-02-28] MEDS: Acetaminophen 325 MG Tablet PO (15:39)
--- NOTE | 2019-02-28 19:50 | NURSING ---
full assessment, no abnormalities except weak pedal pulses, post op site intact, no hematoma, no signs of bleeding
--- NOTE | 2019-02-28 19:57 | NURSING ---
IV removed from left hand, post op site intact
== END 2019-02-28 20:25 | disposition home health service (06) ==
LOC: CLSP 08:56 → PCU 15:14
PROVIDERS: Family Provider Internal Medicine; PCP Internal Medicine; Referring Provider Surgery; Visit Provider Surgery
DX: E11.51 Type 2 diabetes mellitus with diabetic peripheral angiopathy without gangrene (principal); I73.9 Peripheral vascular disease, unspecified; E78.5 Hyperlipidemia, unspecified; I25.2 Old myocardial infarction; I11.0 Hypertensive heart disease with heart failure; I50.31 Acute diastolic (congestive) heart failure; I25.10 Atherosclerotic heart disease of native coronary artery without angina pectoris; F41.9 Anxiety disorder, unspecified; Z87.891 Personal history of nicotine dependence; Z79.4 Long term (current) use of insulin; Z79.82 Long term (current) use of aspirin; Z79.899 Other long term (current) drug therapy
CPT/HCPCS: 36200; 36245; 36415; 37225; 37228; 75625; 75710; 76937; 80048; 82962; 85027; 85347; 99152; 99153; J7030; Q9967; C1714; C1725; C1760; C1769; C1884; C1894

== ENCOUNTER 2019-03-26 16:55 | Observation (INO) | payer MEDICARE, OTHER, SELFPAY ==
[2019-02-28 09:28] VITALS: BMI 34.7
[2019-03-26 16:58] VITALS: BP 156/61; PULSE 83; RESP 16; TEMP 36.8; O2SAT 100; BMI 35.4
--- NOTE | 2019-03-26 17:27 | EKG12_ITS ---
Test Reason : Blood Pressure : / mmHG Vent. Rate : 079 BPM Atrial Rate : 079 BPM P-R Int : 168 ms QRS Dur : 084 ms QT Int : 388 ms P-R-T Axes : 039 -07 101 degrees QTc Int : 444 ms Normal sinus rhythm with sinus arrhythmia Non-specific T-wave Abnormality Abnormal ECG Confirmed by JR GUADALUPE, SANTOS ([id number]), editor news ELLIOT COLÓN ([id number]) on 03/28/2019 2:00:06 PM Referred By: NAVA Confirmed By:SANTOS NORRIS MD
--- NOTE | 2019-03-26 17:27 | RAD_ITS ---
STUDY: X-RAY CHEST REASON FOR EXAM: Female, 68 years old. Pain TECHNIQUE: Single frontal view of the chest. COMPARISON: 06/22/2018 FINDINGS: The lungs are clear and expanded. There is no demonstrated pleural abnormality. Stable cardiomediastinal silhouette. Normal mediastinum and stefany. Normal visualized pulmonary arteries. Normal visualized aortic arch and descending thoracic aorta. Normal visualized thoracic spine. There is degenerative osteoarthritis of the bilateral shoulders. Right rotator cuff repair. There is no demonstrated abnormality of the visualized soft tissue structures of the upper abdomen. RAD/Chest 1 View (Portable) IMPRESSION: No acute pulmonary findings. Electronically Signed: Pieter Cintron MD at 18:06 EDT Tel , Service support ,
[2019-03-26] MEDS: Aspirin 325 MG Tablet PO (17:46)
[2019-03-26] MEDS: Ondansetron 4 MG/2 ML Vial IV (17:46)
[2019-03-26] MEDS: Morphine 4 MG/ML Syringe IV (17:47)
[2019-03-26 18:01] LABS: Absolute Lymphocyte Count 2.32 X10^3/uL (0.83-4.51); Absolute Neutrophil Count 6.8 X10^3/uL (2.0-7.7); Basophil# 0.07 X10^3/uL; Basophil% 0.7 % (0-1); Eosinophil# 0.16 X10^3/uL; Eosinophils% 1.6 % (0-5); Hematocrit 42.3 % (37-47); Hemoglobin 13.6 g/dL (12.0-15.0); Lymphocyte # 2.32 X10^3/ul (4.0); Lymphocyte % 22.9 % (19-41); Mean Corp Hgb Conc 32.2 g/dL (32-36); Mean Corpuscular Hgb 26.3 pg (27.0-32.0); Mean Corpuscular Volume 81.7 fL (81-99); Mean Platelet Vol. 11.1 fl (6.2-12.0); Monocyte# 0.73 X10^3/uL; Monocyte% 7.2 % (0-10); NRBC Flagged by Analyzer 0 % (0-5); Neutrophil # 6.81 X10^3/uL (2.7-7.7); Platelet Count 178 K/mm3 (150-450); RBC Distribution Width CV 14.9 % (11.6-14.6); RBC Distribution Width SD 44.5 fl (35.1-43.9); Red Blood Count 5.18 M/mm3 (4.2-5.4); White Blood Count 10.2 K/mm3 (4.4-11.0)
[2019-03-26 18:22] LABS: Anion Gap 5 (5-15); BUN 26 mg/dL (7-18); BUN/Creat Ratio 18.2 RATIO (10-20); Chloride 104 mmol/L (98-107); Creatinine, Serum 1.43 mg/dL (0.55-1.02); EST Glomerular Filtration Rate 39 mL/min (>60); Est Glom Filt Rate - Afr Amer 47 mL/min (>60); Estimated Creatinine Clearance 28.02 ml/min; Glucose 213 mg/dL (74-106); Potassium 4.1 mmol/L (3.5-5.1); Sodium Level 137 mmol/L (136-145)
[2019-03-26 18:25] LABS: D-Dimer Quantitative (DVT/PE) 0.42 FEU/ug/m (0.27-0.49)
--- NOTE | 2019-03-26 18:45 | ED.VISSUMM ---
- ER Visit Summary Date of Service: 03/26/19 Chief Complaint: Muscle spasms, chest pain History of Present Illness: The patient is a 68 F presenting with muscle spasms left side of her neck and chest pain. She states the chest pain has been intermittent over the past 2 days. She states it is worse with exertion. She has associated shortness of breath. She states she has had muscle spasms to the left part of her neck as well. She tried Valium at home with no improvement. Denies fever. Denies other complaints. Physical Examination: Vitals are stable. Patient is afebrile. Alert no acute distress. HEENT exam is unremarkable. Neck is supple. Lungs are clear and equal bilaterally. Heart is regular rate and rhythm. Abdomen is soft nontender nondistended. Extremities are unremarkable. Skin is warm and dry. No focal neurologic deficit. Remainder of exam is unremarkable. Emergency Department Course and Treatment: EKG is sinus rhythm rate of 79 with no acute ischemic changes. Chest x-ray shows no acute process. CBC, chemistries unremarkable other than glucose 213, BUN 26, creatinine 1.43. Troponin is negative. D-dimer negative. Patient was given aspirin, morphine, Zofran IV. On reevaluation she is resting comfortably. Will discuss with the hospitalist for observation. Disposition: Observation Impression: Chest pain This note was generated with [employer] dictation software. It may contain incorrect words, spelling, and punctuation that were not noted in review of the chart prior to signing ED Disposition - Plan for ED Patient: Referrals: Annette Mckinley MD [Primary Care Provider] -
[2019-03-26 18:46] VITALS: BMI 35.4
--- NOTE | 2019-03-26 18:49 | HP.PCM_ITS ---
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-term use Diabetes mellitus complication status: with other specified complication Qualified Code(s): E11.69 - Type 2 diabetes mellitus with other specified complication; Z79.4 - extermination supervisor (current) use of insulin (6) Anxiety Status: Chronic (7) PAD (peripheral artery disease) Status: Chronic (8) History of coronary artery stent placement Status: Chronic Comment: ODY-DVP-Qvul LAD w/ a 3.0 x 38 mm Synergy Stent 06/23/18 (9) Atherosclerosis of coronary artery of [place] heart without angina pectoris Status: Chronic Qualifiers: Coronary Disease-Associated Artery/Lesion type: [place] artery Qualified Code(s): I25.10 - Atherosclerotic heart disease of [place] coronary artery without angina pectoris Comment: WNR-DGT-Rcwm LAD w/ a 3.0 x 38 mm Synergy Stent 06/23/18 (10) Essential (primary) hypertension Status: Chronic (11) Hyperlipidemia Status: Chronic Qualifiers: Hyperlipidemia type: pure hypercholesterolemia Qualified Code(s): E78.00 - Pure hypercholesterolemia, unspecified; E78.0 - Pure hypercholesterolemia History of Present Illness Date of Admission: 03/26/19 Chief Complaint: Chest pain, ? Muscle spasms The patient is a 68 y/o F w/ PMHx: CAD s/p PCI proximal LAD, Obesity, HTN, HLD, Diastolic CHF, Diabetes mellitus type II, PAD, Unclear Hepatitis type, Anxiety and Depression who presents to the [facility] ED on 03/26/19 with history of severe intermittent neck as well as primarily bilateral lower extremity neck spasms and cramps, worse with certain movements, specifically dorsiflexion x3 weeks in addition to onset at same time midsternal nonradiating chest tightness, described as 8 out of 10 with occurrence, primarily with activity with associated dyspnea and diaphoresis but no nausea or emesis, improving with rest. Work-up in the ED included T 98.3, heart rate 83, BP 156/61, respiratory rate 16, 100% room air, CBC with WC 10.2, hemoglobin 13.6, platelet 178 without market shift, d-dimer 0.42, BMP with BUN/creatinine 26/1.43, glucose 213, troponin less than 0.015, chest x-ray with no acute pulmonary findings, EKG with sinus rhythm with no acute evidence of ischemia. In the ED administered aspirin, morphine, Zofran. Past Medical History Past Medical History (Chronic Problems): Chronic Problems (Last Reviewed 03/05/19 @ 08:35 by [employer]) Chronic diastolic CHF (congestive heart failure) (Chronic) Obesity (Chronic) Diabetes mellitus, type II (Chronic) Corneal injury (Chronic) Anxiety (Chronic) PAD (peripheral artery disease) (Chronic) History of coronary artery stent placement (Chronic 06/23/18) VZD-VJQ-Qivr LAD w/ a 3.0 x 38 mm Synergy Stent 06/23/18 Atherosclerosis of coronary artery of [place] heart without angina pectoris (Chronic) JFN-FYE-Ktvx LAD w/ a 3.0 x 38 mm Synergy Stent 06/23/18 Essential (primary) hypertension (Chronic) Hyperlipidemia (Chronic) Medical History: Medical History (Last Reviewed 03/05/19 @ 08:35 by [employer]) Back problem (Acute) M53.9 Hepatitis (Acute) K75.9 Right wrist pain (Acute) M25.531 Corneal injury (Chronic) S05.8X9A Anxiety (Chronic) F41.9 PAD (peripheral artery disease) (Chronic) I73.9 Non-ST elevation (NSTEMI) myocardial infarction (Resolved) Onset Date: 06/22/18 I21.4 Acute diastolic (congestive) heart failure (Acute) I50.31 Atherosclerosis of coronary artery of [place] heart without angina pectoris (Chronic) I25.10 DJL-QTD-Lrli LAD w/ a 3.0 x 38 mm Synergy Stent 06/23/18 Essential (primary) hypertension (Chronic) I10 Hyperlipidemia (Chronic) E78.5 Diabetes type 2, controlled E11.9 Dx : 1997 Last exacerbation : DKA : never Hypoglycemic episode : never ER visit : never Allergies acetaminophen [From [place]] Allergy (Verified 03/26/19 17:02) Other hydrocodone [From [place]] Allergy (Verified 03/26/19 17:02) Other metformin Allergy (Verified 03/05/19 08:36) Unknown Home Medications: Ambulatory Orders Medication Instructions Recorded insulin aspart (U-100) 100 unit/mL 6 unit SC TIDCM ml 07/26/17 (3 mL) subcutaneous pen Insulin Detemir [Levemir FlexPen] 6 units SQ BID 06/22/18 Nitroglycerin (INPATIENT USE) 0.4 mg SUBLINGUAL Q5M PRN 06/22/18 [Nitrostat] clopidogrel 75 mg tablet 75 mg PO DAILY #90 tab 07/21/18 hydrochlorothiazide 12.5 mg capsule 12.5 mg PO DAILY 07/21/18 metoprolol succinate ER 50 mg 50 mg PO DAILY #90 tab 07/21/18 tablet,extended release 24 hr amlodipine 10 mg tablet 10 mg PO DAILY #30 tab 09/11/18 isosorbide mononitrate ER 60 mg 60 mg PO DAILY #30 tab 09/11/18 tablet,extended release 24 hr Diazepam [Valium] 2.5 - 5 mg PO DAILY PRN PRN 03/26/19 Labetalol HCl 200 mg PO BID 03/26/19 Surgical History: Surgical History (Last Updated 03/05/19 @ 08:35 by [employer]) History of APLL (Acute) 02/28/2019 S/P colonoscopy (Acute) Z98.890 History of total abdominal hysterectomy (Acute) Z98.890, Z90.710 History of coronary artery stent placement (Chronic) Onset Date: 06/23/18 Z95.5 JKN-PFN-Aefy LAD w/ a 3.0 x 38 mm Synergy Stent 06/23/18 Surgical History: - - Total abdominal hysterectomy, PCI x1, angioplasty left lower extremity, right rotator cuff repair, left knee arthroscopic surgery. 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 Lives: Spouse/ Significant Other Smoking Status: Former smoker - Patient quit cigarette tobacco usage in 1998 with prior to this about 1 pack every 3 days cigarettes Tobacco Use: Non-smoker Alcohol: None Drugs: None - *Family History Maternal Family History: Family History (Last Reviewed 03/05/19 @ 08:35 by [employer]) Mother Arthritis Father Arthritis History Items: Heart Disease Paternal Family History: Family History (Last Reviewed 03/05/19 @ 08:35 by [employer]ava [employer]) Mother Arthritis Father Arthritis History Items: - - Patient denies any market paternal family history including heart disease, diabetes or cancer. Review of Systems Constitutional: Reports: Malaise, Weakness, Fatigue. Denies: Chills, Fever, Weight Change HEENT: Reports: - - Neck muscle cramping, spasms.. Denies: Head Aches, Sinus Congestion, Sinus Drainage Cardiovascular: Reports: Chest Pain, Chest Tightness. Denies: Light Headedness, Orthopnea, Palpitations, Syncope Respiratory: Reports: Shortness of breath upon exertion. Denies: Cough, Shortness of Breath, Shortness of breath at rest, Sputum production, Wheezing Gastrointestinal: Denies: Abdominal Pain, Nausea, Vomiting Genitourinary: Denies: Dysuria Musculoskeletal: Reports: Leg Pain - Notable bilateral lower extremity muscle cramping, spasms., Neck Pain. Denies: Joint Pain, Joint Tenderness Skin: Denies: Rash, Wounds Neurological: Denies: Numbness, Tingling, Focal weakness Psychiatric: Reports: Anxiety, Depression. Denies: Homicidal Ideations, Suicidal Ideations Hematologic/ Lymphatic: Reports: Easy Bruising, Easy Bleeding VTE Information - Inpt Only VTE Present on Admission: No VTE Mechan Device Prophylaxis: SCD's VTE Pharm Prophylaxis ordered?: Yes Patient Problems: Active and Suspected Problems (Last Reviewed 03/05/19 @ 08:35 by Mi[employer]lava [employer]) Chest pain (Acute) Muscle cramps (Acute) Subjective: Seated upright in ED bed, mildly fatigued appearance, no acute distress, no current chest tightness or ongoing muscle spasms or cramps at this moment. Objective: Physical Examination: General: awake, alert, oriented x 3 and cooperative, seated upright in the ED bed in no apparent distress. Skin: normal color, turgor, no icterus, cyanosis. HEENT: AT/NC, EOMI, PERRLA, mildly dry MM, no carotid bruits or JVD noted. Lungs: CTA bilaterally, moderate effort, mild decrease BL bases, no rales, ronchi or wheezing. Heart: Regular rate and rhythm; no gallop, rub audible, no reproducible chest discomfort upon palpation. Abdomen: soft, obese, NTTP, ND, normal BS, no HSM. Extremities: no cyanosis, clubbing, or edema. Neurological: patient awake, alert, oriented x 3; cognitive function intact; pupils equally reactive to light and accomodation; cranial nerves II-XII grossly normal, moving all 4 extremities, no focal deficits, strength moderately global decrease secondary to acute presentation and complaints, no currently noted muscle spasms or cramps. Psychiatric: affect appears mildly fatigued, no acute evidence of depressive or anxiety feelings. - Physical Exam Vital Signs Temp Pulse Resp BP Pulse Ox 98.3 F 83 16 156/61 H 100 03/26/19 16:58 03/26/19 16:58 03/26/19 16:58 03/26/19 16:58 03/26/19 16:58 Oxygen Delivery Method Room Air Weight: 187 lb 2.759 oz Body Mass Index (BMI) 35.4 Laboratory Tests Past 24 Hrs 03/26/19 03/26/19 03/26/19 17:45 17:45 17:45 WBC 10.2 RBC 5.18 Hgb 13.6 Hct 42.3 MCV 81.7 MCH 26.3 L MCHC 32.2 RDW Std Deviation 44.5 H RDW Coeff of Chelsey 14.9 H Plt Count 178 MPV 11.1 Immature Gran % (Auto) 0.600 Neut % (Auto) 67.0 Lymph % (Auto) 22.9 Adams % (Auto) 7.2 Eos % (Auto) 1.6 Baso % (Auto) 0.7 Absolute Neuts (auto) 6.8 Absolute Lymphs (auto) 2.32 Nucleated RBC % 0 D-Dimer Quant (PE/DVT) 0.42 Sodium 137 Potassium 4.1 Chloride 104 Carbon Dioxide 28.0 Anion Gap 5 BUN 26 H Creatinine 1.43 H Estim Creat Clear Calc 28.02 Est GFR (MDRD) Af Amer 47 L Est GFR (MDRD) Non-Af 39 L BUN/Creatinine Ratio 18.2 Glucose 213 H Calcium 9.0 Troponin I < 0.015 Assessment/Plan All Active Problems (Last Reviewed 03/05/19 @ 08:35 by Miroslava [employer]ting) Chest pain (Acute) Muscle cramps (Acute) History of APLL (Acute) Back problem (Acute) Hepatitis (Acute) Right wrist pain (Acute) S/P colonoscopy (Acute) History of total abdominal hysterectomy (Acute) Abnormal ultrasound of lower extremity (Acute) Claudication (Acute) Non-ST elevation (NSTEMI) myocardial infarction (Resolved 06/22/18) Acute diastolic (congestive) heart failure (Acute) ACS (acute coronary syndrome) (Resolved) Cellulitis of buttock (Resolved) Diverticulitis large intestine (Resolved) Hypertensive urgency (Resolved) The patient is a 68 y/o F w/ PMHx: CAD s/p PCI proximal LAD, Obesity, HTN, HLD, Diastolic CHF, Diabetes mellitus type II, PAD, Unclear Hepatitis type, Anxiety and Depression who presents to the [facility] ED on 03/26/19 with history of severe intermittent neck as well as primarily bilateral lower extremity neck spasms and cramps, worse with certain movements, specifically dorsiflexion x3 weeks in addition to onset at same time midsternal nonradiating chest tightness, described as 8 out of 10 with occurrence, primarily with activity with associated dyspnea and diaphoresis but no nausea or emesis, improving with rest. (1) Chest Pain: Work-up in the ED included T 98.3, heart rate 83, BP 156/61, respiratory rate 16, 100% room air, CBC with WC 10.2, hemoglobin 13.6, platelet 178 without market shift, d-dimer 0.42, BMP with BUN/creatinine 26/1.43, glucose 213, troponin less than 0.015, chest x-ray with no acute pulmonary findings, EKG with sinus rhythm with no acute evidence of ischemia. Will admit to PCU, place on a monitored bed to assure no acute myocardial infarction with serial cardiac enzymes and EKGs. Patient is unable to perform exercise thus will proceed with AM nuclear stress testing. ASA, NG, morphine. FLP in AM. Mag pending. (2) Severe bilateral lower extremity as well as neck spasms, muscle cramps: Unclear possibly related to 1 and atypical, given presentation we will hold hydrochlorothiazide, gently hydrate judiciously given chronic diastolic CHF history noted, obtain magnesium level and supplement if appropriate, utilize low-dose muscle relaxants PRN. (3) Chronic diastolic CHF: We will maintain on aspirin, Plavix, clarification currently on labetalol versus metoprolol as both listed, not in statin therapy, not on MARLENE inhibitor ARB. (4) CAD, PAD: Status post PCI proximal LAD as well as angioplasty to the left lower extremity, continue home aspirin, Plavix, will need clarification as both listed on labetalol and metoprolol, from currently not on statin therapy. (5) Diabetes mellitus type II: Continue home insulin regimen, ADA diet, accu checks w/ ISS. (6) Obesity: Weight loss and lifestyle changes encouraged, nutrition consulted. (7) Hypertension: Continue home regimen including amlodipine, hydrochlorothiazide, isosorbide, clarification pending on labetalol and metoprolol as both listed, PRN hydralazine. (8) Hyperlipidemia: Not on regimen, FLP in a.m. (9) CKD stage III: Admission BUN/Cr 26/1.43, similar to prior regarding Cr, mildly elevated BUN, hydrating, holding HCTZ given severe muscle cramps and spasms temporarily, repeat BMP in AM. (10) DVT Prophylaxis: SCDs, lovenox. Code Visit OBSV E&M: [id number] Initial observation care L3
[2019-03-26 18:58] VITALS: BP 149/70; PULSE 74; RESP 16; O2SAT 98
[2019-03-26 19:35] VITALS: BMI 34.0
[2019-03-26 19:37] VITALS: BP 184/83; PULSE 69; RESP 15; TEMP 37; O2SAT 97
[2019-03-26 20:01] VITALS: PULSE 77
--- NOTE | 2019-03-26 20:20 | EKG12_ITS ---
Test Reason : CP ADMIT Blood Pressure : / mmHG Vent. Rate : 074 BPM Atrial Rate : 074 BPM P-R Int : 164 ms QRS Dur : 082 ms QT Int : 390 ms P-R-T Axes : 049 -11 104 degrees QTc Int : 432 ms Normal sinus rhythm with sinus arrhythmia T wave abnormality, consider lateral ischemia Abnormal ECG Confirmed by JR GUADALUPE, SANTOS ([id number]), associate entertainment editor ELLIOT COLÓN ([id number]) on 03/28/2019 2:26:27 PM Referred By: DR BLACKWOOD Confirmed By:SANTOS NORRIS MD
[2019-03-26] MEDS: LORazepam 0.5 MG Tablet PO (21:35)
[2019-03-26] MEDS: Insulin Lispro 100 UNIT/ML INSULN.PEN SC (21:38)
[2019-03-26 21:45] VITALS: BP 152/74; PULSE 77; RESP 18; TEMP 36.6; O2SAT 96
[2019-03-26] MEDS: 0.9% Normal Saline 1,000 ML 125 ML IV (22:36)
[2019-03-26 22:41] LABS: Bedside Glucose 334 mg/dL (70-110)
[2019-03-27] VITALS (7 sets, daily range): BP systolic 160–166; BP diastolic 78–88; PULSE 68–83; RESP 18; TEMP 36.6–36.8; O2SAT 96–99
[2019-03-27 05:49] LABS: Absolute Lymphocyte Count 2.57 X10^3/uL (0.83-4.51); Absolute Neutrophil Count 5.6 X10^3/uL (2.0-7.7); Basophil# 0.06 X10^3/uL; Basophil% 0.7 % (0-1); Eosinophil# 0.14 X10^3/uL; Eosinophils% 1.5 % (0-5); Hematocrit 39.5 % (37-47); Hemoglobin 12.5 g/dL (12.0-15.0); Lymphocyte # 2.57 X10^3/ul (4.0); Lymphocyte % 28.3 % (19-41); Mean Corp Hgb Conc 31.6 g/dL (32-36); Mean Corpuscular Hgb 25.9 pg (27.0-32.0); Mean Platelet Vol. 10.8 fl (6.2-12.0); Monocyte# 0.67 X10^3/uL; Monocyte% 7.4 % (0-10); NRBC Flagged by Analyzer 0 % (0-5); Neutrophil # 5.59 X10^3/uL (2.7-7.7); Neutrophil % 61.4 % (47-70); Platelet Count 155 K/mm3 (150-450); RBC Distribution Width CV 15.1 % (11.6-14.6); RBC Distribution Width SD 45.5 fl (35.1-43.9); Red Blood Count 4.82 M/mm3 (4.2-5.4); White Blood Count 9.1 K/mm3 (4.4-11.0)
--- NOTE | 2019-03-27 05:55 | EKG12_ITS ---
Test Reason : AM EKG Blood Pressure : / mmHG Vent. Rate : 069 BPM Atrial Rate : 069 BPM P-R Int : 186 ms QRS Dur : 080 ms QT Int : 398 ms P-R-T Axes : 049 -16 111 degrees QTc Int : 426 ms Normal sinus rhythm T wave abnormality, consider lateral ischemia Abnormal ECG Confirmed by JR GUADALUPE, SANTOS ([id number]), mapping editor ELLIOT COLÓN ([id number]) on 03/28/2019 2:22:28 PM Referred By: DR BLACKWOOD Confirmed By:SANTOS NORRIS MD
[2019-03-27 06:02] LABS: Anion Gap 8 (5-15); BUN 28 mg/dL (7-18); Chloride 110 mmol/L (98-107); Cholesterol 215 mg/dL (200); Creatinine, Serum 1.12 mg/dL (0.55-1.02); EST Glomerular Filtration Rate 51 mL/min (>60); Est Glom Filt Rate - Afr Amer 62 mL/min (>60); Estimated Creatinine Clearance 35.77 ml/min; Glucose 268 mg/dL (74-106); High Density Lipoprotein 67 mg/dL; Potassium 4.6 mmol/L (3.5-5.1); Sodium Level 141 mmol/L (136-145); Triglycerides 80 mg/dL; Very Low Density Lipoprotein 16 mg/dL (5-40)
[2019-03-27] MEDS: 0.9% Normal Saline 1,000 ML 125 ML IV (06:09)
[2019-03-27 06:10] LABS: Prothrombin Time (Protime)PT. 12.5 SECONDS (11.7-14.9)
[2019-03-27 06:11] LABS: Partial Thromboplast Time 26.1 Seconds (24.1-36.2)
[2019-03-27 08:30] LABS: Bedside Glucose 228 mg/dL (70-110)
--- NOTE | 2019-03-27 08:30 | NURSING ---
Pt off of floor for stress test
[2019-03-27] MEDS: Aspirin E.C. 81 MG Tablet PO (10:25)
[2019-03-27] MEDS: Isosorbide Mononitrate 60 MG Tablet PO (10:26)
[2019-03-27] MEDS: amLODIPine 10 MG Tablet PO (10:26)
[2019-03-27] MEDS: Metoprolol(XL)Succ 50 MG Tablet PO (10:26)
[2019-03-27] MEDS: Clopidogrel Bisulfate 75 MG Tablet PO (10:26)
--- NOTE | 2019-03-27 10:39 | NURSING ---
pt returned from stress test started on clear liquids
[2019-03-27] MEDS: Insulin Lispro 100 UNIT/ML INSULN.PEN 6 UNIT SC (11:59)
[2019-03-27] MEDS: Insulin Lispro 100 UNIT/ML INSULN.PEN SC (11:59)
[2019-03-27 12:05] LABS: Bedside Glucose 248 mg/dL (70-110)
--- NOTE | 2019-03-27 12:57 | STRESSREP ---
Stress Test Report Date: 03-27-19 Procedure: Pharmacologic stress nuclear imaging study Indications: Chest pain; CAD; status post PCI Consent: Per the patient Procedure: The patient underwent pharmacologic (Regadenoson) evaluation with a peak heart rate of 104 beats per minute (68 %predicted maximal heart rate) and a peak blood pressure of 138/72 mmHg. The baseline ECG demonstrated normal sinus rhythm; nonspecific T wave abnormality. The peak pharmacologic ECG demonstrated no obvious ECG changes. There were no cardiac dysrhythmias pretest, during pharmacologic infusion, or recovery. There was no complaint of chest discomfort during pharmacologic infusion or recovery. The examination was discontinued secondary to completion of protocol. Impression: 1. Pharmacologic (Regadenoson) evaluation 2. Peak pharmacologic ECG with no obvious ECG changes. 3. There were no cardiac dysrhythmias pretest, during pharmacologic infusion, or recovery. 4. Nuclear images pending Myocardial perfusion imaging study: Technique: The patient was injected with 12.0 millicuries of technetium 99m Cardiolite and subsequently rest SPECT Cardiolite nuclear imaging was obtained in the horizontal long, vertical long, and short axis views. The patient underwent pharmacologic (Regadenoson) evaluation with a peak heart rate of 104 beats per minute (68 % percent predicted maximal heart rate) and a peak blood pressure of 138/72 mmHg. The patient was injected with 33.5 millicuries of technetium 99m Cardiolite and subsequently stress SPECT Cardiolite nuclear imaging was obtained in the horizontal long, vertical long, and short axis views. A gated Cardiolite study at peak stress was obtained. Interpretation: Rest and stress SPECT Cardiolite nuclear imaging status post realignment, normalization, and attenuation correction demonstrate relative uniform tracer uptake and myocardial perfusion appearing within normal limits. There is end systolic thickening and brightening. The gated Cardiolite study demonstrates myocardial thickening and inward wall motion. The reported LVEF is 72 %. Impression: 1. Rest and stress SPECT Cardiolite nuclear imaging demonstrate relative uniform tracer uptake and myocardial perfusion appearing within normal limits. 2. The gated Cardiolite study reports an LVEF of 72 %. This note was generated with Medical Joyworksation software. It may contain incorrect words, spelling, and punctuation that were not noted in checking the note before signing.
--- NOTE | 2019-03-27 13:15 | DCINST_ITS ---
- Discharge Diagnoses Current Active Problems: Current Active and Chronic Problems (Last Reviewed 03/05/19 @ 08:35 by Miroslava Painting) Chest pain (Acute) Muscle cramps (Acute) Chronic diastolic CHF (congestive heart failure) (Chronic) Obesity (Chronic) Diabetes mellitus, type II (Chronic) You will use the following diet at home:: Calorie/Carbohydrate Controlled (specify 1200, 1400, etc), Cardiac Discharge Activity: Return to Normal Activity Call your doctor if you observe: Shortness of breath, Dizziness, Fainting spells, Chest pain Allergies/Adverse Reactions: Allergies acetaminophen [From [place]] Allergy (Verified 03/26/19 17:02) Other hydrocodone [From [place]] Allergy (Verified 03/26/19 17:02) Other metformin Allergy (Verified 03/05/19 08:36) Unknown Medications to take at Discharge insulin aspart (U-100) 100 unit/mL (3 mL) subcutaneous pen 6 unit SC TIDCM ml 07/26/17 Insulin Detemir [Levemir FlexPen] 6 units SQ BID 06/22/18 Nitroglycerin (INPATIENT USE) [Nitrostat] 0.4 mg SUBLINGUAL Q5M PRN 06/22/18 clopidogrel 75 mg tablet 75 mg PO DAILY #90 tab 07/21/18 metoprolol succinate ER 50 mg tablet,extended release 24 hr 50 mg PO DAILY #90 tab 07/21/18 amlodipine 10 mg tablet 10 mg PO DAILY #30 tab 09/11/18 isosorbide mononitrate ER 60 mg tablet,extended release 24 hr 60 mg PO DAILY #30 tab 09/11/18 Diazepam [Valium] 2.5 - 5 mg PO DAILY PRN PRN 03/26/19 Labetalol HCl 200 mg PO BID 03/26/19 Tizanidine HCl [Zanaflex] 4 mg PO Q8H PRN #10 tab 03/27/19 The following prescriptions were given: Tizanidine HCl [Zanaflex] 4 mg PO Q8H PRN #10 tab PRN Reason: Muscle Spasm Transmission Status: Pending to [facility] [facility] Primary Care Physician: Annette Mckinley MD [Primary Care Provider] - Please follow up with your Primary Care Physician in: 1 Week Test Results: Test results from this visit will be discussed in further detail at your follow- up appointment, if applicable. Please Follow Up With: Sylvain Mcdowell MD When: As scheduled Please Follow Up With: Watson Alfredo MD When: As scheduled 04/02/19 for PAD follow up Proposed Discharge Date: 03/27/19
--- NOTE | 2019-03-27 13:20 | PCM.DC.SUM ---
<Louise Garcia - Last Filed: 03/27/19 14:33> Discharge Date and Diagnosis Date of Admission: 03/26/19 Date of Discharge: 03/27/19 - Primary Discharge Diagnosis Active and Suspected Problems (Last Reviewed 03/05/19 @ 08:35 by Miroslava Painting) 1. Musculoskeletal chest pain, ACS ruled out 2. Sternocleidomastoid muscle strain/spasm, generalized muscle cramping 3. Chronic diastolic CHF 4. CAD/PAD, history of PCI/lower extremity angioplasty 5. Type 2 diabetes mellitus 6. Chronic kidney disease stage III 7. Hypertension 8. Hyperlipidemia 9. Obesity - Secondary Discharge Diagnosis Chronic Problems (Last Reviewed 03/05/19 @ 08:35 by Miroslava Painting) Chronic diastolic CHF (congestive heart failure) (Chronic) Obesity (Chronic) Diabetes mellitus, type II (Chronic) Corneal injury (Chronic) Anxiety (Chronic) PAD (peripheral artery disease) (Chronic) History of coronary artery stent placement (Chronic 06/23/18) [id number] LAD w/ a 3.0 x 38 mm Synergy Stent 06/23/18 Atherosclerosis of coronary artery of [place] heart without angina pectoris (Chronic) [id number] LAD w/ a 3.0 x 38 mm Synergy Stent 06/23/18 Essential (primary) hypertension (Chronic) Hyperlipidemia (Chronic) Hospital Course and Treatment Imaging Results: Diagnostic Data Chest X-Ray 03/26/19 17:27 IMPRESSION: No acute pulmonary findings. Electronically Signed: Pieter Cintron MD at 18:06 EDT Tel , Service support , Operations: None Procedures: Stress test Summary of Care Provided: The patient is a 68 year old F admitted 03/26/2019 due to chest pain and muscle spasms. 1. Musculoskeletal chest pain, ACS ruled out-troponin negative. EKG without ST-T changes. Chest x-ray without acute process. Patient underwent stress test which was negative for ischemia, LVEF 72%. Follow-up with primary care physician in 1 week. 2. Sternocleidomastoid muscle strain/spasm, generalized muscle cramping-symptoms improved following hydration, discontinuation of HCTZ and addition of PRN Zanaflex. 3. Chronic diastolic CHF-no acute exacerbation. 4. CAD/PAD, history of PCI/lower extremity angioplasty-continue aspirin, Plavix, beta-ramón. Upcoming follow-up with Dr. Alfredo for PAD. Patient follows with Dr. Mcdowell as outpatient, cardiology. 5. Type 2 diabetes mellitus-continue home insulin regimen. 6. Chronic kidney disease stage III-at baseline. 7. Hypertension-stable, continue home amlodipine, isosorbide, labetalol. HCTZ discontinued at discharge secondary to #2. 8. Hyperlipidemia-continue statin regimen. 9. Obesity-encouraged diet and lifestyle modifications. Patient seen and examined prior to discharge. Physical assessment as noted below. Patient is stable for discharge with follow up recommendations as noted above. This patient was seen by ROBERT Fraga under the supervision of Dr. Morrison. - Physical Exam General: Alert, Oriented x3, Cooperative HEENT: Atraumatic, PERRLA, EOMI, Normocephalic Neck: Supple, No JVD, Negative Carotid Bruits Lungs: Clear to auscultation, Normal air movement Cardiovascular: Regular rate, Regular Rhythm, Normal S1, Normal S2, No murmurs Abdomen: Bowel Sounds Present, Soft, Non Tender, Non-Distended Extremities: No clubbing, No cyanosis, No edema, Capillary Refill Less than 3 Seconds Skin: No rashes, No breakdown Musculoskeletal: No Tenderness to Palpation of Joints or Extremities Neurological: Cranial nerves II-XII grossly intact, Neuro grossly intact Psych/Mental Status: Normal Affect, Appropriate Vital Signs Temp Pulse Resp BP Pulse Ox 97.9 F 75 18 166/88 H 96 03/27/19 08:27 03/27/19 10:26 03/27/19 08:27 03/27/19 08:27 03/27/19 08:27 Oxygen Delivery Method Room Air Weight: 180 lb 3.2 oz Body Mass Index (BMI) 34.0 Intake and Output for Last 24 Hours 03/25/19 03/26/19 03/27/19 23:59 23:59 23:59 Intake Total 871.25 / 871.25 1335.84 / 1335.84 Balance 871.25 / 871.25 1335.84 / 1335.84 Laboratory Tests Past 24 Hrs 03/26/19 03/26/19 03/26/19 17:45 17:45 17:45 WBC 10.2 RBC 5.18 Hgb 13.6 Hct 42.3 MCV 81.7 MCH 26.3 L MCHC 32.2 RDW Std Deviation 44.5 H RDW Coeff of [place] 14.9 H Plt Count 178 MPV 11.1 Immature Gran % (Auto) 0.600 Neut % (Auto) 67.0 Lymph % (Auto) 22.9 Centre % (Auto) 7.2 Eos % (Auto) 1.6 Baso % (Auto) 0.7 Absolute Neuts (auto) 6.8 Absolute Lymphs (auto) 2.32 Nucleated RBC % 0 PT INR APTT D-Dimer Quant (PE/DVT) 0.42 Sodium 137 Potassium 4.1 Chloride 104 Carbon Dioxide 28.0 Anion Gap 5 BUN 26 H Creatinine 1.43 H Estim Creat Clear Calc 28.02 Est GFR (MDRD) Af Amer 47 L Est GFR (MDRD) Non-Af 39 L BUN/Creatinine Ratio 18.2 Glucose 213 H Calcium 9.0 Magnesium Troponin I < 0.015 Triglycerides Cholesterol LDL Cholesterol VLDL Cholesterol HDL Cholesterol 03/26/19 03/26/19 03/27/19 20:50 23:10 02:12 WBC RBC Hgb Hct MCV MCH MCHC RDW Std Deviation RDW Coeff of [place] Plt Count MPV Immature Gran % (Auto) Neut % (Auto) Lymph % (Auto) Centre % (Auto) Eos % (Auto) Baso % (Auto) Absolute Neuts (auto) Absolute Lymphs (auto) Nucleated RBC % PT INR APTT D-Dimer Quant (PE/DVT) Sodium Potassium Chloride Carbon Dioxide Anion Gap BUN Creatinine Estim Creat Clear Calc Est GFR (MDRD) Af Amer Est GFR (MDRD) Non-Af BUN/Creatinine Ratio Glucose Calcium Magnesium 2.0 Troponin I < 0.015 < 0.015 < 0.015 Triglycerides Cholesterol LDL Cholesterol VLDL Cholesterol HDL Cholesterol 03/27/19 03/27/19 03/27/19 05:16 05:16 05:16 WBC 9.1 RBC 4.82 Hgb 12.5 Hct 39.5 MCV 82.0 MCH 25.9 L MCHC 31.6 L RDW Std Deviation 45.5 H RDW Coeff of [place] 15.1 H Plt Count 155 MPV 10.8 Immature Gran % (Auto) 0.700 Neut % (Auto) 61.4 Lymph % (Auto) 28.3 Centre % (Auto) 7.4 Eos % (Auto) 1.5 Baso % (Auto) 0.7 Absolute Neuts (auto) 5.6 Absolute Lymphs (auto) 2.57 Nucleated RBC % 0 PT 12.5 INR 1.0 APTT 26.1 D-Dimer Quant (PE/DVT) Sodium 141 Potassium 4.6 Chloride 110 H Carbon Dioxide 23.0 Anion Gap 8 BUN 28 H Creatinine 1.12 H Estim Creat Clear Calc 35.77 Est GFR (MDRD) Af Amer 62 Est GFR (MDRD) Non-Af 51 L BUN/Creatinine Ratio 25.0 H Glucose 268 H Calcium 8.0 L Magnesium Troponin I Triglycerides 80 Cholesterol 215 H LDL Cholesterol 132 H VLDL Cholesterol 16 HDL Cholesterol 67 POC Glucose 03/27/19 03/27/19 03/26/19 11:58 08:23 21:34 POC Glucose 248 H 228 H 334 H Discharge Diet: Low fat/ Low Cholesterol Discharge Activity: Return to Normal Activity Call your doctor if you observe: Shortness of breath, Dizziness, Fainting spells, Chest pain Home Medications: Medications to take at Discharge insulin aspart (U-100) 100 unit/mL (3 mL) subcutaneous pen 6 unit SC TIDCM ml 07/26/17 Insulin Detemir [Levemir FlexPen] 6 units SQ BID 06/22/18 Nitroglycerin (INPATIENT USE) [Nitrostat] 0.4 mg SUBLINGUAL Q5M PRN 06/22/18 clopidogrel 75 mg tablet 75 mg PO DAILY #90 tab 07/21/18 metoprolol succinate ER 50 mg tablet,extended release 24 hr 50 mg PO DAILY #90 tab 07/21/18 amlodipine 10 mg tablet 10 mg PO DAILY #30 tab 09/11/18 isosorbide mononitrate ER 60 mg tablet,extended release 24 hr 60 mg PO DAILY #30 tab 09/11/18 Diazepam [Valium] 2.5 - 5 mg PO DAILY PRN PRN 03/26/19 Labetalol HCl 200 mg PO BID 03/26/19 Tizanidine HCl [Zanaflex] 4 mg PO Q8H PRN #10 tab 03/27/19 Following Prescrptions Were Given to Patient: Tizanidine HCl [Zanaflex] 4 mg PO Q8H PRN #10 tab PRN Reason: Muscle Spasm Transmission Status: Received by [facility] [facility] Primary Care Physician: Annette Mckinley MD [Primary Care Provider] - Please follow up with your Primary Care Physician in: 1 Week Please Follow Up With: Sylvain Mcdowell MD When: As scheduled Please Follow Up With: Watson Alfredo MD When: As scheduled 04/02/19 for PAD follow up Disposition: Home Minutes spent on discharge:: 35 Patient Condition:: Stable Medical Necessity - Tobacco Use Smoking Status: Former smoker - Patient quit cigarette tobacco usage in 1998 with prior to this about 1 pack every 3 days cigarettes Tobacco Use: Non-smoker Meaningful Use Info Meaningful Use Diagnoses (Choose all that apply): None applicable <Miguel Morrison - Last Filed: 03/27/19 15:25> Discharge Date and Diagnosis - Secondary Discharge Diagnosis Chronic Problems (Last Reviewed 03/05/19 @ 08:35 by Miroslava Painting) Chronic diastolic CHF (congestive heart failure) (Chronic) Obesity (Chronic) Diabetes mellitus, type II (Chronic) Corneal injury (Chronic) Anxiety (Chronic) PAD (peripheral artery disease) (Chronic) History of coronary artery stent placement (Chronic 06/23/18) [id number] LAD w/ a 3.0 x 38 mm Synergy Stent 06/23/18 Atherosclerosis of coronary artery of [place] heart without angina pectoris (Chronic) [id number] LAD w/ a 3.0 x 38 mm Synergy Stent 06/23/18 Essential (primary) hypertension (Chronic) Hyperlipidemia (Chronic) Hospital Course and Treatment Operations: None Procedures: Stress test Summary of Care Provided: Patient seen and examined independently. Data reviewed. I agree with the above note by the nurse practitioner. The patient is a 68 year old F presents with left neck and chest pain. Clinically, it is felt to be musculoskeletal as patient is neck pain was along the line of the left sternocleidomastoid. Muscle itself seems very taut and very tender. No evidence of myositis on clinical exam. Patient underwent a stress test that was negative for any coronary ischemia. Patient will be discharged and prescribed Zanaflex to help with muscle spasms. Reassurance was provided. [] - Physical Exam General: Alert, Cooperative Neck: - - Taut and tender left sternocleidomastoid muscle from the junction of the mastoid to the clavicle Psych/Mental Status: Normal Affect, Appropriate Vital Signs Temp Pulse Resp BP Pulse Ox 36.8 C 83 18 162/82 H 96 03/27/19 14:03 03/27/19 14:03 03/27/19 14:03 03/27/19 14:03 03/27/19 14:03 Oxygen Delivery Method Room Air Weight: 81.737 kg Body Mass Index (BMI) 34.0 Intake and Output for Last 24 Hours 03/25/19 03/26/19 03/27/19 23:59 23:59 23:59 Intake Total 871.25 / 871.25 1335.84 / 1335.84 Balance 871.25 / 871.25 1335.84 / 1335.84 Laboratory Tests Past 24 Hrs 03/26/19 03/26/19 03/26/19 17:45 17:45 17:45 WBC 10.2 RBC 5.18 Hgb 13.6 Hct 42.3 MCV 81.7 MCH 26.3 L MCHC 32.2 RDW Std Deviation 44.5 H RDW Coeff of [place] 14.9 H Plt Count 178 MPV 11.1 Immature Gran % (Auto) 0.600 Neut % (Auto) 67.0 Lymph % (Auto) 22.9 Centre % (Auto) 7.2 Eos % (Auto) 1.6 Baso % (Auto) 0.7 Absolute Neuts (auto) 6.8 Absolute Lymphs (auto) 2.32 Nucleated RBC % 0 PT INR APTT D-Dimer Quant (PE/DVT) 0.42 Sodium 137 Potassium 4.1 Chloride 104 Carbon Dioxide 28.0 Anion Gap 5 BUN 26 H Creatinine 1.43 H Estim Creat Clear Calc 28.02 Est GFR (MDRD) Af Amer 47 L Est GFR (MDRD) Non-Af 39 L BUN/Creatinine Ratio 18.2 Glucose 213 H Calcium 9.0 Magnesium Troponin I < 0.015 Triglycerides Cholesterol LDL Cholesterol VLDL Cholesterol HDL Cholesterol 03/26/19 03/26/19 03/27/19 20:50 23:10 02:12 WBC RBC Hgb Hct MCV MCH MCHC RDW Std Deviation RDW Coeff of [place] Plt Count MPV Immature Gran % (Auto) Neut % (Auto) Lymph % (Auto) Centre % (Auto) Eos % (Auto) Baso % (Auto) Absolute Neuts (auto) Absolute Lymphs (auto) Nucleated RBC % PT INR APTT D-Dimer Quant (PE/DVT) Sodium Potassium Chloride Carbon Dioxide Anion Gap BUN Creatinine Estim Creat Clear Calc Est GFR (MDRD) Af Amer Est GFR (MDRD) Non-Af BUN/Creatinine Ratio Glucose Calcium Magnesium 2.0 Troponin I < 0.015 < 0.015 < 0.015 Triglycerides Cholesterol LDL Cholesterol VLDL Cholesterol HDL Cholesterol 03/27/19 03/27/19 03/27/19 05:16 05:16 05:16 WBC 9.1 RBC 4.82 Hgb 12.5 Hct 39.5 MCV 82.0 MCH 25.9 L MCHC 31.6 L RDW Std Deviation 45.5 H RDW Coeff of [place] 15.1 H Plt Count 155 MPV 10.8 Immature Gran % (Auto) 0.700 Neut % (Auto) 61.4 Lymph % (Auto) 28.3 Centre % (Auto) 7.4 Eos % (Auto) 1.5 Baso % (Auto) 0.7 Absolute Neuts (auto) 5.6 Absolute Lymphs (auto) 2.57 Nucleated RBC % 0 PT 12.5 INR 1.0 APTT 26.1 D-Dimer Quant (PE/DVT) Sodium 141 Potassium 4.6 Chloride 110 H Carbon Dioxide 23.0 Anion Gap 8 BUN 28 H Creatinine 1.12 H Estim Creat Clear Calc 35.77 Est GFR (MDRD) Af Amer 62 Est GFR (MDRD) Non-Af 51 L BUN/Creatinine Ratio 25.0 H Glucose 268 H Calcium 8.0 L Magnesium Troponin I Triglycerides 80 Cholesterol 215 H LDL Cholesterol 132 H VLDL Cholesterol 16 HDL Cholesterol 67 POC Glucose 03/27/19 03/27/19 03/26/19 11:58 08:23 21:34 POC Glucose 248 H 228 H 334 H Discharge Diet: Low fat/ Low Cholesterol Discharge Activity: Return to Normal Activity Call your doctor if you observe: Shortness of breath, Dizziness, Fainting spells, Chest pain Disposition: Home Minutes spent on discharge:: 35 Patient Condition:: Stable Medical Necessity - Tobacco Use Smoking Status: Former smoker Tobacco Use: Non-smoker Meaningful Use Info Meaningful Use Diagnoses (Choose all that apply): None applicable Code Visit OBSV E&M: 46698 Observation care discharge
--- NOTE | 2019-03-27 14:53 | CHAPLAIN ---
Type of Pastoral Visit _x__ Initial Visit ___ Follow-up Visit ___ On-call Visit ___ General Patient Visit ___ Spiritual Assessment ___ Family Conference ___ Bereavement ___ Rapid Response ___ Code Blue ___ Other (describe below) Pastoral Care Referral From _x__ Patient ___ Family ___ Nurse ___ Physician ___ Machine Pie Maker ___ Pollution Control Chemist ___ Other (describe below) Sacrament/Intervention _x__ Active listening ___ Anointing ___ Moravian ___ Bereavement ___ Communion _x__ Rosie exploration ___ _x__ Life review _x__ Prayer ___ Reconciliation ___ Sacrament of Sick _x__ Supportive presence ___ Wedding ___ Other (describe below) Pastoral Comments sat with this patient longer than normal as pt described some symptoms she was experiencing and she called for the RN; made sure that pt was doing fine as we talked; RN came to room and this national account manager left then
== END 2019-03-27 13:16 | disposition home or self-care (01) ==
LOC: ED 18:32 → PCU 19:36
PROVIDERS: Admitting Provider Family Medicine; Emergency Provider Emergency Medicine; Family Provider Internal Medicine; PCP Internal Medicine
DX: R07.89 Other chest pain (principal); I50.32 Chronic diastolic (congestive) heart failure; I13.0 Hypertensive heart and chronic kidney disease with heart failure and stage 1 through stage 4 chronic kidney disease, or unspecified chronic kidney disease; E11.51 Type 2 diabetes mellitus with diabetic peripheral angiopathy without gangrene; E11.22 Type 2 diabetes mellitus with diabetic chronic kidney disease; I25.10 Atherosclerotic heart disease of native coronary artery without angina pectoris; S16.1XXA Strain of muscle, fascia and tendon at neck level, initial encounter; M62.838 Other muscle spasm; X58.XXXA Exposure to other specified factors, initial encounter; N18.3 Chronic kidney disease, stage 3 (moderate); E66.9 Obesity, unspecified; Z68.34 Body mass index [BMI] 34.0-34.9, adult; Z71.3 Dietary counseling and surveillance; E78.5 Hyperlipidemia, unspecified; Z95.5 Presence of coronary angioplasty implant and graft; Z79.899 Other long term (current) drug therapy; Z79.4 Long term (current) use of insulin; Z79.02 Long term (current) use of antithrombotics/antiplatelets; F41.9 Anxiety disorder, unspecified; F32.9 Major depressive disorder, single episode, unspecified; Z87.891 Personal history of nicotine dependence; Y93.9 Activity, unspecified; Y92.9 Unspecified place or not applicable
CPT/HCPCS: 36415; 71045; 78452; 80048; 80061; 82962; 83735; 84484; 85025; 85379; 85610; 85730; 93005; 93017; 96361; 96374; 96375; 97802; 99218; 99285; A9500; J7030; J7040; A4216; G0378; J2405; J2785

== ENCOUNTER → 2019-04-02 | Outpatient (CLI) | payer MEDICARE, OTHER, SELFPAY ==
[2019-02-28 09:28] VITALS: BMI 34.7
[2019-03-26 19:35] VITALS: BMI 34.0
--- NOTE | 2019-04-02 09:04 | ART_ITS ---
Reason For Study: PVD Procedure A bilateral lower extremity continuous wave Doppler with analog waveform analysis,segmental pressures,and ankle brachial indexes with exercise. Left Segmental Pressures Left brachial= 188mmHg. Left calf = 173mmHg. Left posterior tibial artery = 155mmHg. Left dorsalis pedis artery = 131mmHg. Left digit = 139 mmHg. The left dorsalis pedis waveforms are biphasic. The left posterior tibial artery waveforms are biphasic. The left thigh is noncompressible. Right Segmental Pressures Right brachial= 174mmHg. Right calf = 167mmHg. Right posterior tibial artery = 144mmHg. Right dorsalis pedis artery = 134mmHg. Right digit = 123 mmHg. The right thigh is noncompressible. Indices The right ankle brachial index by the posterior tibial artery is .77. The right ankle brachial index by the dorsalis pedis is .71. The right digital-brachial index is .65. The right post exercise ankle brachial index is .81. The left ankle brachial index by the posterior tibial artery is .82. The left ankle brachial index by the dorsalis pedis is .7. The left digital-brachial index is .74. The left post exercise ankle brachial index is .88. Interpretation Summary Moderately severe bilateral lower extremity arterial occlusive disease Abnormal resting bilateral digital brachial indices Exercise response normal bilaterally Ordering Physician: Watson Alfredo MD Performed By: KARLA BOOGIE Carlos Manuel
== END | disposition home or self-care (01) ==
LOC: CVS 09:04
PROVIDERS: Family Provider Internal Medicine; PCP Internal Medicine; Referring Provider Surgery; Visit Provider Surgery
DX: I73.9 Peripheral vascular disease, unspecified (principal)
CPT/HCPCS: 93923

== ENCOUNTER 2019-05-23 13:15 | Outpatient (RCR) | payer MEDICARE, OTHER, SELFPAY ==
[2018-10-25 10:28] VITALS: BMI 33.4
== END 2019-05-23 23:59 | disposition home or self-care (01) ==
LOC: DC 13:15
PROVIDERS: Family Provider Internal Medicine; PCP Internal Medicine; Visit Provider Internal Medicine Cardiovascular Disease
DX: Z71.3 Dietary counseling and surveillance (principal); E11.9 Type 2 diabetes mellitus without complications; E78.5 Hyperlipidemia, unspecified; I11.0 Hypertensive heart disease with heart failure; I25.10 Atherosclerotic heart disease of native coronary artery without angina pectoris; I50.31 Acute diastolic (congestive) heart failure
CPT/HCPCS: 97803

== ENCOUNTER 2019-06-10 14:18 | Emergency (ER) | payer MEDICARE, OTHER, SELFPAY ==
[2019-05-29 14:21] VITALS: BMI 34.0
[2019-06-10 14:18] VITALS: BP 151/42; PULSE 72; RESP 18; TEMP 36.7; O2SAT 99; BMI 36.5
--- NOTE | 2019-06-10 14:25 | EKG12_ITS ---
Test Reason : REPEAT Blood Pressure : / mmHG Vent. Rate : 066 BPM Atrial Rate : 066 BPM P-R Int : 186 ms QRS Dur : 080 ms QT Int : 434 ms P-R-T Axes : 048 -22 115 degrees QTc Int : 454 ms Normal sinus rhythm T wave abnormality, consider lateral ischemia Abnormal ECG Confirmed by BRIDGET GUADALUPE, LUIZ ([id number]), assignment editor JAMES MULLEN ([id number]) on 06/11/2019 2:59:08 PM Referred By: NIEVES Confirmed By:LUIZ GILL MD
[2019-06-10 14:35] VITALS: O2SAT 100
--- NOTE | 2019-06-10 14:35 | ED.VISSUMM ---
- ER Visit Summary Date of Service: 06/10/19 Chief Complaint: Chest discomfort History of Present Illness: The patient is a 68 F 3 of CAD with one stent. Also diabetes, hypertension high cholesterol. Patient is on blood thinner Plavix. She states that around 2 AM this morning she was awoken by right shoulder discomfort. Went back to bed it resolved. No shortness of breath at that time. Around 1:00 this afternoon at rest she got anterior chest pain. No diaphoresis. No nausea. Said it felt like a knife being run across her chest. Currently she is symptom-free. Says is intermittent. She did take 3 sublingual nitro initially was not sure if it did anything or not but she said the pain is now resolved. She denies any history of DVT or PE. She did have a negative stress test in March of this year and had a stress test in June of last year. I believe she had a stent at the end of last year. Physical Examination: Alert female no acute distress vital signs stable afebrile. Pulse ox 9 9% on room air no signs of hypoxia. Currently symptom-free pain-free. HEENT exam unremarkable. Neck nontender. Lungs good auscultation bilaterally. Heart regular rate and rhythm no murmur. Chest wall nontender no ecchymosis or bruising no subcu air crepitance. She does have reproducible tenderness on the top of her right shoulder there is no redness or bruising no trauma. She has no reproducible chest wall pain. Abdomen is soft and nontender normal bowel sounds no peritoneal signs. Extremities moves all 4. Calves nontender no edema no cords. Equal symmetrical radial pulses. Neurologically she is awake alert with no focal motor deficits. Test Results: EKG shows a sinus rhythm rate of 75. She does have inverted T waves in lead aVL otherwise EKG is no acute abnormalities and looks very similar to a prior EKG from March this year. Both at the same T wave inversion in aVL. CBC normal white count 6 hemoglobin 12. Chemistries unremarkable potassium of 5.3. Creatinine 1.2. Gap is 6. Glucose elevated 353. Troponin normal. Portable chest x-ray one view shows no acute abnormality read both by myself and the radiologist. Repeat troponin 3 hours after the first again is normal and unchanged. Second EKG was also obtained and it shows no change from the first with a sinus rhythm. Emergency Department Course and Treatment: Patient was treated with aspirin by the squad. She will undergo cardiac work-up. Repeat exam the patient is doing well at 1620 p.m. We will obtain a repeat troponin III hours after the first if that is doing well she will be discharged home. Treatment Plan: Repeat exam the patient is doing well at 1814 p.m. She has had no further episodes of felt comfortable being discharged home. She will return if worse. Otherwise follow-up with her primary care physician. Disposition: Discharge Impression: Acute chest pain atypical of uncertain etiology History of CAD with a cardiac stent on Plavix History of diabetes This note was generated with [employer] dictation software. It may contain incorrect words, spelling, and punctuation that were not noted in review of the chart prior to signing ED Disposition - Plan for ED Patient: Disposition: Home or Assisted Living Instructions: CHEST PAIN, Uncertain Cause Referrals: Annette Mckinley MD [Primary Care Provider] - As soon as possible Additional Instructions: Follow-up with your doctor. Return to the ER feeling worse. Your labs and EKG today were unremarkable.
[2019-06-10 14:48] LABS: Absolute Lymphocyte Count 1.96 X10^3/uL (0.83-4.51); Absolute Neutrophil Count 4.2 X10^3/uL (2.0-7.7); Basophil# 0.06 X10^3/uL; Basophil% 0.9 % (0-1); Eosinophil# 0.14 X10^3/uL; Hematocrit 39.2 % (37-47); Hemoglobin 12.3 g/dL (12.0-15.0); Lymphocyte # 1.96 X10^3/ul (4.0); Lymphocyte % 28.2 % (19-41); Mean Corp Hgb Conc 31.4 g/dL (32-36); Mean Corpuscular Hgb 25.7 pg (27.0-32.0); Mean Corpuscular Volume 81.8 fL (81-99); Mean Platelet Vol. 11.5 fl (6.2-12.0); Monocyte# 0.52 X10^3/uL; Monocyte% 7.5 % (0-10); NRBC Flagged by Analyzer 0 % (0-5); Neutrophil # 4.23 X10^3/uL (2.7-7.7); Platelet Count 198 K/mm3 (150-450); RBC Distribution Width CV 14.1 % (11.6-14.6); RBC Distribution Width SD 41.9 fl (35.1-43.9); Red Blood Count 4.79 M/mm3 (4.2-5.4); White Blood Count 6.9 K/mm3 (4.4-11.0)
--- NOTE | 2019-06-10 15:06 | RAD_ITS ---
STUDY: X-RAY CHEST REASON FOR EXAM: Female, 68 years old. Chest pain x2 days TECHNIQUE: Single AP portable view of the chest. COMPARISON: 03/26/2019 FINDINGS: The lungs are clear and expanded. There is no demonstrated pleural abnormality. Normal size heart. Normal mediastinum and stefany. Normal visualized pulmonary arteries. Normal visualized aortic arch and descending thoracic aorta. Normal visualized thoracic spine. Normal visualized ribs, clavicles, and shoulders. There is no demonstrated abnormality of the visualized soft tissue structures of the upper abdomen. RAD/Chest 1 View (Portable) IMPRESSION: Normal x-ray examination of the chest. Electronically Signed: Philipp Nichole DO at 15:35 EST Tel , Service support ,
[2019-06-10 15:13] LABS: Anion Gap 6 (5-15); BUN 19 mg/dL (7-18); BUN/Creat Ratio 15.1 RATIO (10-20); Calcium,Total 8.8 mg/dL (8.5-10.1); Chloride 105 mmol/L (98-107); Creatinine, Serum 1.26 mg/dL (0.55-1.02); EST Glomerular Filtration Rate 45 mL/min (>60); Est Glom Filt Rate - Afr Amer 54 mL/min (>60); Glucose 353 mg/dL (74-106); Potassium 5.3 mmol/L (3.5-5.1); Sodium Level 137 mmol/L (136-145)
[2019-06-10 15:18] VITALS: BP 166/84; PULSE 71; RESP 16; O2SAT 99
--- NOTE | 2019-06-10 15:41 | EKG12_ITS ---
Test Reason : CP Blood Pressure : / mmHG Vent. Rate : 075 BPM Atrial Rate : 075 BPM P-R Int : 196 ms QRS Dur : 082 ms QT Int : 418 ms P-R-T Axes : 049 -09 118 degrees QTc Int : 466 ms Normal sinus rhythm T wave abnormality, consider lateral ischemia Abnormal ECG Confirmed by BRIDGET GUADALUPE, LUIZ ([id number]), digital editor JAMES MULLEN ([id number]) on 06/11/2019 2:58:59 PM Referred By: ALEAH/NIEVES Confirmed By:LUIZ GILL MD
--- NOTE | 2019-06-10 15:47 | ED.RN ---
TO DRAW DELTA TROPONIN AT 1730; PT NOTIFIED.
--- NOTE | 2019-06-10 16:30 | ED.DEP ---
ED Disposition - Plan for ED Patient: Disposition: Home or Assisted Living Instructions: CHEST PAIN, Uncertain Cause Referrals: Annette Mckinley MD [Primary Care Provider] - As soon as possible Additional Instructions: Follow-up with your doctor. Return to the ER feeling worse. Your labs and EKG today were unremarkable.
[2019-06-10 16:45] VITALS: BP 161/70; PULSE 70; RESP 17
[2019-06-10 17:41] VITALS: BP 163/70; PULSE 67; RESP 18; O2SAT 98
[2019-06-10 18:25] VITALS: BP 169/81; PULSE 67; RESP 16; O2SAT 98
== END 2019-06-10 18:32 | disposition home or self-care (01) ==
PROVIDERS: Emergency Provider Emergency Medicine; Family Provider Internal Medicine; PCP Internal Medicine
DX: R07.89 Other chest pain (principal); I25.10 Atherosclerotic heart disease of native coronary artery without angina pectoris; E11.9 Type 2 diabetes mellitus without complications; Z79.02 Long term (current) use of antithrombotics/antiplatelets; Z95.5 Presence of coronary angioplasty implant and graft; I10 Essential (primary) hypertension
CPT/HCPCS: 36415; 71045; 80048; 84484; 85025; 93005; 99285; J7030; A4216

== ENCOUNTER 2019-08-31 11:42 | Emergency (ER) | payer MEDICARE, OTHER, SELFPAY ==
[2019-06-12 10:36] VITALS: BMI 36.5
[2019-08-31 11:43] VITALS: BP 161/82; PULSE 86; RESP 24; TEMP 36.9; O2SAT 94; BMI 34.4
--- NOTE | 2019-08-31 12:20 | EKG12_ITS ---
Test Reason : SOB Blood Pressure : / mmHG Vent. Rate : 081 BPM Atrial Rate : 081 BPM P-R Int : 170 ms QRS Dur : 078 ms QT Int : 394 ms P-R-T Axes : 056 -06 105 degrees QTc Int : 457 ms Normal sinus rhythm with sinus arrhythmia T wave abnormality, consider lateral ischemia Abnormal ECG Confirmed by DOTTIE SMITH ([id number]), research editor ELLIOT COLÓN ([id number]) on 09/04/2019 1:55:16 PM Referred By: DAIANA Confirmed By:DOTTIE SMITH
[2019-08-31 12:24] VITALS: PULSE 88; RESP 18
[2019-08-31] MEDS: Ipratropium/Albuterol Sulfate 3 ML AMPUL.NEB INHALATION (12:24)
[2019-08-31 12:33] LABS: Absolute Lymphocyte Count 1.75 X10^3/uL (0.83-4.51); Absolute Neutrophil Count 5.3 X10^3/uL (2.0-7.7); Basophil# 0.04 X10^3/uL; Basophil% 0.5 % (0-1); Eosinophils% 1.3 % (0-5); Hematocrit 37.8 % (37-47); Hemoglobin 11.7 g/dL (12.0-15.0); Lymphocyte # 1.75 X10^3/ul (4.0); Lymphocyte % 22.2 % (19-41); Mean Corpuscular Hgb 25.7 pg (27.0-32.0); Mean Corpuscular Volume 83.1 fL (81-99); Mean Platelet Vol. 11.2 fl (6.2-12.0); Monocyte# 0.57 X10^3/uL; Monocyte% 7.2 % (0-10); NRBC Flagged by Analyzer 0 % (0-5); Neutrophil # 5.32 X10^3/uL (2.7-7.7); Neutrophil % 67.4 % (47-70); Platelet Count 221 K/mm3 (150-450); RBC Distribution Width SD 45.2 fl (35.1-43.9); Red Blood Count 4.55 M/mm3 (4.2-5.4); White Blood Count 7.9 K/mm3 (4.4-11.0)
[2019-08-31] MEDS: Aspirin 81 MG TAB.CHEW 324 MG PO (12:35)
--- NOTE | 2019-08-31 12:45 | ED.VISSUMM ---
- ER Visit Summary Date of Service: 08/31/19 Chief Complaint: Shortness of breath History of Present Illness: The patient is a 69 F who presents with shortness of breath that is been waxing and waning since last night. Patient states her breathing is worse with any exertion. Patient admits to a sore throat. Patient denies any cough. Patient admits to some heaviness in her chest. Patient denies any fevers or chills. Nausea but denies any vomiting. Patient denies any diaphoresis. Patient states she feels like she is whistling when she breathes. Physical Examination: Vital signs are stable except for mild tachypnea of 24. Patient is afebrile. Patient is in no acute distress. Oral mucosa is pink and moist. Neck is supple. Trachea is midline. There is no JVD. Heart was regular rate and rhythm. Lungs showed few expiratory wheezes. There is good respiratory effort noted. Abdomen is soft. Bowel sounds are normal. There is no tenderness. Extremities are intact. There is no calf tenderness or edema. Cranial nerves II through XII are intact. There are no focal motor or sensory deficits noted. Test Results: PA and lateral chest x-ray shows mild increase in congestive heart failure. This was interpreted by the radiologist and myself. CBC and comprehensive metabolic profile were obtained. Creatinine was slightly elevated at 1.36 which is similar to previous results. Troponin was obtained and was normal. EKG showed normal sinus rhythm with a rate of 71. There is some T wave inversion in leads I and aVL. This was unchanged compared to previous EKG dated 06/10/2019. Emergency Department Course and Treatment: Patient was given a DuoNeb aerosol here. Patient was feeling somewhat better after this. Patient was given an extra dose of her Lasix here. Patient was instructed to continue her normal Lasix dose at home. Patient was instructed to follow-up with her primary care physician in 3 to 5 days. Patient was instructed to return if worse in any way. Patient understands and is agreeable with the plan. All questions were answered. Disposition: Discharge home Impression: Mild congestive heart failure This note was generated with [employer] dictation software. It may contain incorrect words, spelling, and punctuation that were not noted in review of the chart prior to signing ED Disposition - Plan for ED Patient: Disposition: Home or Assisted Living Diagnosis: Congestive heart failure Instructions: CHF, General Referrals: Annette Mckinley MD [Primary Care Provider] - 3-5 Days
[2019-08-31 12:48] LABS: ALB/GLOB Ratio 0.8 RATIO (0.9-2.4); AST(SGOT) 43 U/L (15-37); Alanine Aminotransfer ALT/SGPT 65 U/L (13-56); Albumin, Serum 3.1 g/dL (3.2-5.0); Alkaline Phosphatase 67 U/L (45-117); Anion Gap 4 (5-15); BUN 24 mg/dL (7-18); BUN/Creat Ratio 17.6 RATIO (10-20); Calcium,Total 8.8 mg/dL (8.5-10.1); Chloride 112 mmol/L (98-107); Creatinine, Serum 1.36 mg/dL (0.55-1.02); EST Glomerular Filtration Rate 41 mL/min (>60); Est Glom Filt Rate - Afr Amer 49 mL/min (>60); Estimated Creatinine Clearance 29.05 ml/min; Glucose 170 mg/dL (74-106); Potassium 4.2 mmol/L (3.5-5.1); Protein, Total 7.1 g/dL (6.4-8.2); Sodium Level 142 mmol/L (136-145)
--- NOTE | 2019-08-31 12:50 | RAD_ITS ---
STUDY: X-RAY CHEST REASON FOR EXAM: Female, 69 years old. SOB, CHEST HEAVINESS; -- STENT TECHNIQUE: PA and lateral views of the chest. COMPARISON: Comparison is made with prior examination dated June 10, 2019. FINDINGS: There is evidence of vascular congestion and a mild degree of CHF. Blunting of both costophrenic angles. There is borderline cardiomegaly. Normal mediastinum and stefany. Normal visualized pulmonary arteries. There is atherosclerotic calcification of the aortic arch with tortuosity. There are diffuse degenerative changes of the visualized thoracic spine. Surgical pins are seen overlying the right humeral head in keeping with prior rotator cuff surgery. There is no demonstrated abnormality of the visualized soft tissue structures of the upper abdomen. RAD/Chest PA and Lateral IMPRESSION: Mild degree of CHF with blunting of both costophrenic angles. Electronically Signed: Teto De La Torre, at 13:11 EST , Service support ,
[2019-08-31 13:30] VITALS: O2SAT 98
[2019-08-31 13:42] VITALS: RESP 16; O2SAT 99
[2019-08-31 14:39] VITALS: BP 150/84; RESP 18; O2SAT 95
[2019-08-31] MEDS: Furosemide 40 MG Tablet PO (15:26)
[2019-08-31 15:27] VITALS: BP 171/97; PULSE 73; RESP 20; O2SAT 97
== END 2019-08-31 15:37 | disposition home or self-care (01) ==
PROVIDERS: Emergency Provider Emergency Medicine; PCP Internal Medicine
DX: I11.0 Hypertensive heart disease with heart failure (principal); I50.9 Heart failure, unspecified; E11.9 Type 2 diabetes mellitus without complications; E78.00 Pure hypercholesterolemia, unspecified; Z79.4 Long term (current) use of insulin; Z79.899 Other long term (current) drug therapy
CPT/HCPCS: 71046; 80053; 84484; 85025; 93005; 94640; 99283; A4216

== ENCOUNTER 2019-09-02 23:46 | Inpatient (IN) | payer MEDICARE, OTHER, SELFPAY ==
[2019-09-02 23:47] VITALS: BP 144/95; PULSE 82; RESP 24; TEMP 36.7; O2SAT 92; BMI 38.1
[2019-09-02 23:51] VITALS: BP 144/95; PULSE 79; RESP 23; TEMP 36.7; O2SAT 94
[2019-09-03] VITALS (33 sets, daily range): BP systolic 93–162; BP diastolic 50–99; PULSE 65–83; RESP 14–23; TEMP 36.7; O2SAT 93–99; BMI 35.1; BMI 35.0
--- NOTE | 2019-09-03 00:06 | RAD_ITS ---
STUDY: X-RAY CHEST REASON FOR EXAM: Female, 69 years old. Shortness of breath. TECHNIQUE: AP portable chest. COMPARISON: August 31, 2019. FINDINGS: The lungs are clear and expanded. There is no demonstrated pleural abnormality. There is mild to moderate cardiac enlargement. Normal mediastinum and stefany. Normal visualized pulmonary arteries. Normal visualized aortic arch and descending thoracic aorta. Normal visualized thoracic spine. Surgical anchors right humeral head. There is no demonstrated abnormality of the visualized soft tissue structures of the upper abdomen. RAD/Chest 1 View (Portable) IMPRESSION: Stable cardiomegaly. Electronically Signed: Irwin Carter MD at 0:47 EST , Service support ,
--- NOTE | 2019-09-03 00:06 | EKG12_ITS ---
Test Reason : SOB Blood Pressure : / mmHG Vent. Rate : 071 BPM Atrial Rate : 071 BPM P-R Int : 186 ms QRS Dur : 078 ms QT Int : 420 ms P-R-T Axes : 041 -06 104 degrees QTc Int : 456 ms Normal sinus rhythm T wave abnormality, consider lateral ischemia Abnormal ECG Confirmed by DOTTIE GUADALUPE, FANNY ([id number]), editor managing newspaper MANDO FINE ([id number]) on 09/03/2019 2:07:11 PM Referred By: DARIO Confirmed By:CHARO SINCLAIR MD
[2019-09-03 00:54] LABS: Absolute Lymphocyte Count 2.13 X10^3/uL (0.83-4.51); Basophil# 0.07 X10^3/uL; Basophil% 0.9 % (0-1); Eosinophil# 0.17 X10^3/uL; Eosinophils% 2.1 % (0-5); Hematocrit 35.3 % (37-47); Hemoglobin 11.2 g/dL (12.0-15.0); Lymphocyte # 2.13 X10^3/ul (4.0); Lymphocyte % 26.1 % (19-41); Mean Corp Hgb Conc 31.7 g/dL (32-36); Mean Corpuscular Hgb 26.3 pg (27.0-32.0); Mean Corpuscular Volume 82.9 fL (81-99); Mean Platelet Vol. 11.4 fl (6.2-12.0); Monocyte# 0.73 X10^3/uL; Monocyte% 8.9 % (0-10); NRBC Flagged by Analyzer 0 % (0-5); Neutrophil # 4.97 X10^3/uL (2.7-7.7); Neutrophil % 60.9 % (47-70); Platelet Count 202 K/mm3 (150-450); RBC Distribution Width CV 15.3 % (11.6-14.6); RBC Distribution Width SD 45.7 fl (35.1-43.9); Red Blood Count 4.26 M/mm3 (4.2-5.4); White Blood Count 8.2 K/mm3 (4.4-11.0)
[2019-09-03] MEDS: Furosemide 40 MG/4 ML Vial IV (01:02)
[2019-09-03 01:07] LABS: Anion Gap 7 (5-15); BUN 29 mg/dL (7-18); Calcium,Total 9.1 mg/dL (8.5-10.1); Chloride 111 mmol/L (98-107); Creatinine, Serum 1.16 mg/dL (0.55-1.02); EST Glomerular Filtration Rate 49 mL/min (>60); Est Glom Filt Rate - Afr Amer 59 mL/min (>60); Estimated Creatinine Clearance 34.05 ml/min; Glucose 229 mg/dL (74-106); Potassium 3.9 mmol/L (3.5-5.1); Sodium Level 142 mmol/L (136-145)
--- NOTE | 2019-09-03 02:42 | ED.DCSUM_ITS ---
History of Present Illness Chief Complaint: Shortness of Breath Informant: Patient, EMS Onset: Today - JPTA Activity at onset: Sleep - awoke w/ sx Timing: Continuous Quality: - - sob Current Severity: Gone Maximum Severity: Severe Worsened by: Exertion Relieved by: Albuterol - by ems Chest Pain: - - heaviness Narrative: Patient awoke with severe chest heaviness and trouble breathing. She states her breathing is much better after an albuterol treatment by EMS. She had similar episode 2 days ago for which she was seen here in the ER. She is still having the chest heaviness that started a little earlier at this time. She states that yesterday, she did pretty well and had no trouble breathing or chest pains. - Past Medical History (1) Atherosclerosis of coronary artery of [place] heart without angina pectoris Status: Chronic Comment: [id number]-[id number] LAD w/ a 3.0 x 38 mm Synergy Stent 06/23/18 (2) Chronic diastolic CHF (congestive heart failure) Status: Chronic (3) Claudication Status: Chronic (4) Essential (primary) hypertension Status: Chronic (5) History of coronary artery stent placement Status: Chronic Comment: FFO-AXD-Lwag LAD w/ a 3.0 x 38 mm Synergy Stent 06/23/18 (6) Hyperlipidemia Status: Chronic (7) Peripheral vascular occlusive disease Status: Chronic Comment: left peroneal and proximal left posterior tibial angioplasty and left superficial femoral atherectomy and angioplasty 02/28/19 (8) Non-ST elevation (NSTEMI) myocardial infarction Status: Resolved Past Medical History - Allergies and Home Meds Allergies/Adverse Reactions: Allergies acetaminophen [From [place]] Allergy (Verified 09/02/19 23:47) Other hydrocodone [From [place]] Allergy (Verified 09/02/19 23:47) Other metformin Allergy (Verified 09/02/19 23:47) Unknown Primary Care Physician: Annette Mckinley MD [Primary Care Provider] - Surgical History: - - Total abdominal hysterectomy, PCI x1, angioplasty left lower extremity, right rotator cuff repair, left knee arthroscopic surgery. Lives: Alone Smoking Status: Former smoker - Family History Paternal Family History: Family History (Last Reviewed 06/12/19 @ 10:[address] Sylvain Mcdowell MD) Mother Arthritis Father Arthritis Family History: Reports: - - Patient denies any market paternal family history including heart disease, diabetes or cancer. Maternal Family History: Family History (Last Reviewed 06/12/19 @ 10:[address] Sylvain Mcdowell MD) Mother Arthritis Father Arthritis Family History: Reports: Heart Disease Review of Systems General: Denies: Chills, Fever, Sweats Eyes: Denies: Visual changes - bilaterally, Diplopia ENT: Denies: Rhinorrhea, Sore throat Cardiovascular: Reports: Chest pain - Nonpleuritic. Denies: Palpitations Respiratory: Reports: Dyspnea, Cough - Today, nonproductive, Dyspnea on exertion, Orthopnea. Denies: Sputum Gastrointestinal: Denies: Abdominal pain, Nausea, Vomiting, Diarrhea, Melena, Hematochezia Genitourinary: Denies: Dysuria, Hematuria, Frequency Musculoskeletal: Denies: Back pain, Swelling, Extremity Pain Skin: Denies: Rash, Wounds Neurological: Denies: Headache, Weakness, Numbness Physical Exam Vital Signs/Narrative: Vital Signs Temp Pulse Resp BP Pulse Ox 09/03/19 01:05 74 17 155/68 H 94 09/03/19 00:07 22 H 94 09/02/19 23:51 98.0 F 79 23 H 144/95 H 94 09/02/19 23:47 98.0 F 82 24 H 144/95 H 92 Inital Vital Signs reviewed: Yes General: Well nourished, Well developed, Obese, No Acute Distress Head: Normocephalic, Atraumatic Eyes: Perrl, EOMI ENT: Moist mucous membranes, No rhinorrhea Neck: Supple, Nontender, No lymphadenopathy, No JVD Cardiovascular: Regular rate, Regular rhythm, No murmurs Respiratory: No distress, CTA bilaterally, Chest nontender Abdomen: Soft, Nontender, Nondistended, Normal bowel sounds Back: Nontender, Normal Inspection Extremities: Nontender, No edema. Negative for: Calf Tenderness Skin: Normal color, No rash Neurological: Alert, Oriented x3, Cranial nerves II-XII grossly intact, Normal Strength, Normal Sensation Psychological: Normal affect, Normal Mood Diagnostic/Tx/Re-eval Impressions Chest X-Ray 09/03/19 00:06 IMPRESSION: Stable cardiomegaly. Electronically Signed: Irwin Carter MD at 0:47 EST , Service support , Chest CTA 09/03/19 03:15 IMPRESSION: No pulmonary embolus or thoracic aortic dissection. New small bilateral pleural effusions. Mild cardiomegaly. Coronary artery calcifications. Minimal pericardial effusion unchanged. Emphysematous changes. Nodules left lobe of the thyroid gland which can be correlated with nonemergent ultrasound. Electronically Signed: Irwin Carter MD at 5:07 EST , Service support , 09/03/19 00:06 Chest 1 View (Portable) [RAD] Stat 09/03/19 03:15 CTA Chest W/WO Contrast [CT] Stat Laboratory Results 09/02/19 09/02/19 09/02/19 23:57 23:57 23:57 WBC 8.2 RBC 4.26 Hgb 11.2 L Hct 35.3 L MCV 82.9 MCH 26.3 L MCHC 31.7 L RDW Std Deviation 45.7 H RDW Coeff of [place] 15.3 H Plt Count 202 MPV 11.4 Immature Gran % (Auto) 1.100 H Neut % (Auto) 60.9 Lymph % (Auto) 26.1 [place] % (Auto) 8.9 Eos % (Auto) 2.1 Baso % (Auto) 0.9 Absolute Neuts (auto) 5.0 Absolute Lymphs (auto) 2.13 Nucleated RBC % 0 D-Dimer Quant (PE/DVT) Sodium 142 Potassium 3.9 Chloride 111 H Carbon Dioxide 24.0 Anion Gap 7 BUN 29 H Creatinine 1.16 H Estim Creat Clear Calc 34.05 Est GFR (MDRD) Af Amer 59 L Est GFR (MDRD) Non-Af 49 L BUN/Creatinine Ratio 25.0 H Glucose 229 H Calcium 9.1 Troponin I < 0.015 B-Natriuretic Peptide 172.0 H 09/02/19 23:57 WBC RBC Hgb Hct MCV MCH MCHC RDW Std Deviation RDW Coeff of [place] Plt Count MPV Immature Gran % (Auto) Neut % (Auto) Lymph % (Auto) [place] % (Auto) Eos % (Auto) Baso % (Auto) Absolute Neuts (auto) Absolute Lymphs (auto) Nucleated RBC % D-Dimer Quant (PE/DVT) 1.76 H* Sodium Potassium Chloride Carbon Dioxide Anion Gap BUN Creatinine Estim Creat Clear Calc Est GFR (MDRD) Af Amer Est GFR (MDRD) Non-Af BUN/Creatinine Ratio Glucose Calcium Troponin I B-Natriuretic Peptide - Rhythm Strip Rhythm Strip: Sinus Rhythm Rate: 81 Ectopy: None - EKG Initial EKG Interpretation: Sinus Rhythm, No Acute Injury Pattern, Non-Specific ST Changes Prior: Unchanged Treatment - Dyspnea: NTG SL Repeat Evaluation: - - cp resolved - Medical Decision Making Given patient's history of diastolic congestive heart failure and her symptoms, she was initially given a dose of Lasix. She was also given a nitroglycerin sublingual. This resulted in complete resolution of her chest heaviness. She did not have any recurrent dyspnea and felt well sitting at rest here in the ER. Nitroglycerin paste was placed on her chest. A d-dimer was sent and significantly elevated so she was sent for CT angiography of the chest. It showed no pulmonary emboli, which was the primary reason for the test. Incidentally it did show very small pleural effusions and pericardial effusion. She is not clinically in tamponade, and I do not think these effusions are the reason for her symptoms tonight. Looking back at her prior cardiac history, she has an LAD stent, but she had lesions in her RCA, circumflex, and elsewhere in her LAD. During her visit in June, she was having some atypical chest pains, and her molder labels wanted her to return for possible repeat heart catheterization if pains continued. The symptoms she was having tonight are arguably more concerning for unstable angina than those, so the plan will be to admit her with cardiology consult. At this time she is pain-free and comfortable with negative enzymes and a nonischemic EKG. ED Disposition - Plan for ED Patient: Disposition: Acute Care Hospital [facility] Diagnosis: Chest pain, unspecified Referrals: Annette Mckinley MD [Primary Care Provider] -
[2019-09-03 03:15] LABS: D-Dimer Quantitative (DVT/PE) 1.76 FEU/ug/m (0.27-0.49)
--- NOTE | 2019-09-03 03:15 | CT_ITS ---
STUDY: CTA CHEST REASON FOR EXAM: Female, 69 years old. Chest pain, dyspnea, elevated d-dimer. RADIATION DOSAGE (If Supplied By Facility): CTDIvol = ( 15.02 ) mGy, DLP = ( 435.17 ) mGycm TECHNIQUE: The examination was performed with the intravenous administration of Isovue 300 100ml. Post-processing of the angiographic images was performed, with multiplanar reformation and 3D reconstruction. Individualized dose optimization techniques were used for this CT. COMPARISON: June 16, 2018. Chest x-ray September 03, 2019. FINDINGS: Normal enhancement of the main pulmonary artery and right and left pulmonary arteries. Normal enhancement of the bilateral peripheral pulmonary arteries. There is no demonstrated pulmonary embolism. Bovine arch which is a normal variant. Mild atherosclerotic calcification of the thoracic aorta. There is no demonstrated aortic dissection. Mild cardiomegaly. Minimal pericardial effusion unchanged. Coronary artery calcifications. Normal mediastinum. Normal hilar regions. Nodules left lobe of thyroid gland. Normal visualized trachea and bronchi. There are now small bilateral pleural effusions, right greater than left. Emphysematous changes. 3.3 cm bulla left lung apex. Normal chest wall structures. Mild degenerative changes of the thoracic spine. Normal visualized upper abdomen. CT/CTA Chest W/WO Contrast IMPRESSION: No pulmonary embolus or thoracic aortic dissection. New small bilateral pleural effusions. Mild cardiomegaly. Coronary artery calcifications. Minimal pericardial effusion unchanged. Emphysematous changes. Nodules left lobe of the thyroid gland which can be correlated with nonemergent ultrasound. Electronically Signed: Irwin Carter MD at 5:07 EST , Service support ,
--- NOTE | 2019-09-03 03:17 | ED.RN ---
Dr Lancaster notified of elevated d dimer.
[2019-09-03] MEDS: Nitroglycerin SL (ED/IMG/CATH) 0.4 MG TABLET SUBLINGUAL (03:23)
[2019-09-03] MEDS: Nitroglycerin Oint 1 INCH PACKET 0.5 INCH TRANSDERM. (05:32)
--- NOTE | 2019-09-03 07:11 | PCM.HP.STD ---
Problem List (1) Chest pain, unspecified Status: Acute (2) Atherosclerosis of coronary artery of [place] heart without angina pectoris Status: Chronic Qualifiers: Coronary Disease-Associated Artery/Lesion type: [place] artery Qualified Code(s): I25.10 - Atherosclerotic heart disease of [place] coronary artery without angina pectoris Comment: [id number]-[id number] LAD w/ a 3.0 x 38 mm Synergy Stent 06/23/18 (3) History of coronary artery stent placement Status: Chronic Comment: [id number]-UNG-Yttc LAD w/ a 3.0 x 38 mm Synergy Stent 06/23/18 (4) Non-ST elevation (NSTEMI) myocardial infarction Status: Resolved (5) Chronic diastolic CHF (congestive heart failure) Status: Chronic (6) Peripheral vascular occlusive disease Status: Chronic Comment: left peroneal and proximal left posterior tibial angioplasty and left superficial femoral atherectomy and angioplasty 02/28/19 (7) Claudication Status: Chronic (8) Essential (primary) hypertension Status: Chronic (9) Hyperlipidemia Status: Chronic Qualifiers: Hyperlipidemia type: pure hypercholesterolemia Qualified Code(s): E78.00 - Pure hypercholesterolemia, unspecified; E78.0 - Pure hypercholesterolemia History of Present Illness Date of Admission: 09/03/19 Chief Complaint: Chest discomfort The patient is a 69 year old F with multiple comorbidities including coronary artery disease with previous stent placement to the proximal LAD lesion on 06/23/2018 who presented with shortness of breath and chest discomfort. Patient symptoms started 3 days prior to admission. Complaint of shortness of breath which was worsening with activity. She also did complain of chest tightness radiating to both breasts. She was seen in the emergency department 3 days prior to her admission and discharged home her symptoms recurred this time was not before. She had an elevated d-dimer in the ED CTA obtained was negative for PE. Given patient past significant history decision was made to admit patient to monitored bed for further management Past Medical History Past Medical History (Chronic Problems): Chronic Problems (Last Reviewed 09/03/19 @ 07:[address] Ahsan Jean MD) Atherosclerosis of coronary artery of [place] heart without angina pectoris (Chronic) IME-ELJ-Rmmi LAD w/ a 3.0 x 38 mm Synergy Stent 06/23/18 History of coronary artery stent placement (Chronic 06/23/18) TEJ-ZHF-Chkk LAD w/ a 3.0 x 38 mm Synergy Stent 06/23/18 Chronic diastolic CHF (congestive heart failure) (Chronic) Peripheral vascular occlusive disease (Chronic) left peroneal and proximal left posterior tibial angioplasty and left superficial femoral atherectomy and angioplasty 02/28/19 Claudication (Chronic) Essential (primary) hypertension (Chronic) Hyperlipidemia (Chronic) Medical History: Medical History (Last Reviewed 09/03/19 @ 07:[address] Ahsan Jean MD) Atherosclerosis of coronary artery of [place] heart without angina pectoris (Chronic) I25.10 MWU-RCU-Yfzs LAD w/ a 3.0 x 38 mm Synergy Stent 06/23/18 Non-ST elevation (NSTEMI) myocardial infarction (Resolved) Onset Date: 06/22/18 I21.4 Chronic diastolic CHF (congestive heart failure) (Chronic) I50.32 Peripheral vascular occlusive disease (Chronic) I73.9 left peroneal and proximal left posterior tibial angioplasty and left superficial femoral atherectomy and angioplasty 02/28/19 Claudication (Chronic) I73.9 Essential (primary) hypertension (Chronic) I10 Hyperlipidemia (Chronic) E78.5 Anxiety F41.9 Back problem M53.9 Chronic kidney disease (CKD) N18.9 Diabetes mellitus, type II E11.9 Hepatitis K75.9 Obesity E66.9 PAD (peripheral artery disease) I73.9 Acute diastolic (congestive) heart failure (Resolved) I50.31 Corneal injury (Resolved) S05.8X9A Diabetes type 2, controlled E11.9 Dx : 1998 Last exacerbation : DKA : never Hypoglycemic episode : never ER visit : never Right wrist pain (Resolved) M25.531 Abnormal ultrasound of lower extremity (Inactive) R93.6 Allergies acetaminophen [From [place]] Allergy (Verified 09/02/19 23:47) Other hydrocodone [From [place]] Allergy (Verified 09/02/19 23:47) Other metformin Allergy (Verified 09/02/19 23:47) Unknown Home Medications: Ambulatory Orders Medication Instructions Recorded insulin aspart U-100 100 unit/mL 8 unit SC BIDCM ml 07/26/17 (3 mL) subcutaneous pen Insulin Detemir [Levemir FlexPen] 11 units SQ DAILY 06/22/18 Nitroglycerin (INPATIENT USE) 0.4 mg SUBLINGUAL Q5M PRN 06/22/18 [Nitrostat] Diazepam [Valium] 2.5 - 5 mg PO DAILY PRN PRN 03/26/19 Labetalol HCl 200 mg PO BID 03/26/19 Tizanidine HCl [Zanaflex] 4 mg PO Q8H PRN #10 tab 03/27/19 simvastatin 20 mg tablet 20 mg PO QHS #90 tab 06/12/19 clopidogrel 75 mg tablet 75 mg PO DAILY #90 tab 08/14/19 lisinopril 20 mg tablet 20 mg PO BID 08/22/19 Acyclovir [Zovirax] 1 applic TOPICAL BID 08/31/19 Ciclopirox 1 applic TP QHS 08/31/19 Fluconazole [Diflucan] 150 mg PO PRN PRN 08/31/19 Furosemide [Lasix] 40 mg PO DAILY 08/31/19 Isosorbide Mononitrate [Isosorbide 30 mg PO DAILY 08/31/19 Mononitrate ER] Lidocaine [Lidocaine 5%] 1 patch TOPICAL DAILY 08/31/19 NIFEdipine [Procardia Xl] 60 mg PO DAILY 08/31/19 Neomycin/Polymyxin B/Dexametha 5 ml OP PRN PRN 08/31/19 [Maxitrol Eye Drops] Triamcinolone Acetonide 1 applicatio TP BID 08/31/19 Surgical History: Surgical History (Last Reviewed 09/03/19 @ 07:[address] Ahsan Jean MD) History of coronary artery stent placement (Chronic) Onset Date: 06/23/18 Z95.5 BHD-ZKE-Odzn LAD w/ a 3.0 x 38 mm Synergy Stent 06/23/18 History of total abdominal hysterectomy Z98.890, Z90.710 History of angioplasty of peripheral vessel Onset Date: 02/28/19 Z98.62 left peroneal and proximal left posterior tibial angioplasty and left superficial femoral atherectomy and angioplasty 02/28/19 S/P colonoscopy (Resolved) Z98.890 Surgical History: - - Total abdominal hysterectomy, PCI x1, angioplasty left lower extremity, right rotator cuff repair, left knee arthroscopic surgery. 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 Ahsan Jean MD) Mother Arthritis Father Arthritis History Items: Heart Disease Paternal Family History: Family History (Last Reviewed 09/03/19 @ 07:[address] Ahsan Jean MD) Mother Arthritis Father Arthritis History Items: - - Patient denies any market paternal family history including heart disease, diabetes or cancer. Review of Systems Constitutional: Denies: Anorexia, Chills, Fever, Night Sweats, Weight Change HEENT: Denies: Head Aches, Sinus Congestion, Sinus Drainage Cardiovascular: Reports: Chest Pain. Denies: Orthopnea, Palpitations, Paroxysmal Noc. Dyspnea Respiratory: Reports: Shortness of Breath. Denies: Cough Gastrointestinal: Denies: Abdominal Pain, Hematemesis, Hematochezia, Nausea, Melena, Vomiting Genitourinary: Denies: Dysuria, Frequency, Hematuria, Urgency Musculoskeletal: Denies: Joint Pain, Joint Tenderness Skin: Denies: Rash Neurological: Denies: Focal weakness, Numbness, Tingling Psychiatric: Denies: Homicidal Ideations, Suicidal Ideations Hematologic/ Lymphatic: Denies: Easy Bruising, Easy Bleeding VTE Information - Inpt Only VTE Present on Admission: No VTE Mechan Device Prophylaxis: None VTE Pharm Prophylaxis ordered?: Yes Patient Problems: Active and Suspected Problems (Last Reviewed 09/03/19 @ 07:[address] Ahsan Jean MD) Chest pain, unspecified (Acute) Objective: GENERAL: cooperative but appears anxious HEENT: Atraumatic; EYES; Anicteric, Normal Conjunctiva NECK; supple, normal thyroid, RESPIRATORY: Diminished to auscultation CARDIOVASCULAR: Regular S1 S2, GI: soft, normoactive bowel sounds, : No Renal angle tenderness; EXTREMITIES: No edema, no clubbing, MUSCULOSKELETAL: no muscle waisting NEURO: Awake; no lateralizing signs. SKIN: No Rash PSYCH; Flat affect - Physical Exam Vitals/I&O's: Vital Signs Temp Pulse Resp BP Pulse Ox 98.0 F 72 22 H 150/99 H 96 09/02/19 23:51 09/03/19 05:32 09/03/19 05:00 09/03/19 05:32 09/03/19 05:00 Oxygen Delivery Method Room Air Weight: 91.6 kg Body Mass Index (BMI) 38.1 Laboratory Results 09/02/19 23:57: WBC 8.2, RBC 4.26, Hgb 11.2 L, Hct 35.3 L, MCV 82.9, MCH 26.3 L, MCHC 31.7 L, RDW Std Deviation 45.7 H, RDW Coeff of [place] 15.3 H, Plt Count 202, MPV 11.4, Immature Gran % (Auto) 1.100 H, Neut % (Auto) 60.9, Lymph % (Auto) 26.1, [place] % (Auto) 8.9, Eos % (Auto) 2.1, Baso % (Auto) 0.9, Absolute Neuts (auto) 5.0, Absolute Lymphs (auto) 2.13, Nucleated RBC % 0 09/02/19 23:57: Sodium 142, Potassium 3.9, Chloride 111 H, Carbon Dioxide 24.0, Anion Gap 7, BUN 29 H, Creatinine 1.16 H, Estim Creat Clear Calc 34.05, Est GFR (MDRD) Af Amer 59 L, Est GFR (MDRD) Non-Af 49 L, BUN/Creatinine Ratio 25.0 H, Glucose 229 H, Calcium 9.1, Troponin I < 0.015 09/02/19 23:57: B-Natriuretic Peptide 172.0 H 09/02/19 23:57: D-Dimer Quant (PE/DVT) 1.76 H* Assessment/Plan All Active Problems (Last Reviewed 09/03/19 @ 07:[address] Ahsan Jean MD) Chest pain, unspecified (Acute) Non-ST elevation (NSTEMI) myocardial infarction (Resolved 06/22/18) ACS (acute coronary syndrome) (Resolved) Acute diastolic (congestive) heart failure (Resolved) Cellulitis of buttock (Resolved) Chest pain (Resolved) Corneal injury (Resolved) Diverticulitis large intestine (Resolved) Hypertensive urgency (Resolved) Muscle cramps (Resolved) Right wrist pain (Resolved) S/P colonoscopy (Resolved) Patient is a 69-year-old lady presented with chest pain 1. Chest pain ?Patient has significant past cardiac historyincluding stent placement to proximal LAD lesion on 06/23/2018. Admitted to monitored bed ordered serial cardiac enzymes. Given patient past significant history consult was placed to cardiology 2. Hypertension ~ blood pressure controlled, home medications continued with dose adjustment as needed 3. Diabetes mellitus type II ~Uncontrolled with hyperglycemia did continue with her long acting insulin, Accu-Cheks a.c. and at bedtime and covered with sliding scale insulin 4. Dyslipidemia ~patient is on statin therapy, continued at home dose 5. Chronic diastolic congestive heart failure ?Stable 6. Obesity with BMI of 38.2 ?Weight loss advised 7. Peripheral arterial disease ?With previous left peroneal and proximal left posterior tibial angioplasty and left superficial femoral atherectomy and angioplasty 02/28/19 8. DVT prophylaxis ?Lovenox Code Visit OBSV E&M: 37234 Initial observation care L3
--- NOTE | 2019-09-03 07:59 | EKG12_ITS ---
Test Reason : Blood Pressure : / mmHG Vent. Rate : 071 BPM Atrial Rate : 071 BPM P-R Int : 174 ms QRS Dur : 078 ms QT Int : 434 ms P-R-T Axes : 028 -11 088 degrees QTc Int : 471 ms Normal sinus rhythm Nonspecific T wave abnormality Abnormal ECG Confirmed by JR GUADALUPE, SANTOS ([id number]), international editorial producer MANDO FINE ([id number]) on 09/05/2019 2:04:05 PM Referred By: LISSA Confirmed By:SANTOS NORRIS MD
[2019-09-03] MEDS: Labetalol 200 MG Tablet PO ×2 (09:22→21:24)
[2019-09-03] MEDS: Lisinopril 20 MG Tablet PO ×2 (09:22→21:24)
[2019-09-03] MEDS: Isosorbide Mononitrate 30 MG Tablet PO ×3 (09:22→21:24)
[2019-09-03] MEDS: DiphenhydrAMINE 25 MG Capsule 50 MG PO (09:22)
[2019-09-03] MEDS: Clopidogrel Bisulfate 75 MG Tablet PO (09:22)
[2019-09-03] MEDS: NIFEdipine 60 MG Tablet PO (09:22)
[2019-09-03] MEDS: 0.9% Normal Saline 1,000 ML 15 ML IV (09:22)
[2019-09-03] MEDS: Aspirin 325 MG Tablet PO (09:22)
--- NOTE | 2019-09-03 09:31 | CON.PCM_ITS ---
Problem List (1) Atherosclerosis of coronary artery of [place] heart without angina pectoris Status: Chronic Qualifiers: Coronary Disease-Associated Artery/Lesion type: [place] artery Qualified Code(s): I25.10 - Atherosclerotic heart disease of [place] coronary artery without angina pectoris Comment: ZML-MSF-Bfjl LAD w/ a 3.0 x 38 mm Synergy Stent 06/23/18 (2) History of coronary artery stent placement Status: Chronic Comment: PWH-NMX-Opxu LAD w/ a 3.0 x 38 mm Synergy Stent 06/23/18 (3) Chronic diastolic CHF (congestive heart failure) Status: Chronic (4) Essential (primary) hypertension Status: Chronic (5) Hyperlipidemia Status: Chronic Qualifiers: Hyperlipidemia type: pure hypercholesterolemia Qualified Code(s): E78.00 - Pure hypercholesterolemia, unspecified; E78.0 - Pure hypercholesterolemia Reason for Consult Date of Consultation: 09/03/19 Reason for Consultation: Unstable angina, hypertension, diabetes, hyper lipidemia, History of Present Illness: The patient is a 69 year old with a history of hypertension, hypercholesterolemia, diabetes, previous smoker who quit around 20 years ago, coronary disease status post angioplasty and drug-eluting stenting to her middle LAD by Dr. Fonseca on 06/23/2018. At that time she was also found to have a diffusely diseased small right coronary artery which apparently was left for medical management. This was superimposed on severe hypertension which was medically managed. Patient only takes her Plavix as taking aspirin causes her to have nosebleeds, but she has been compliant with her medications. Patient underwent previous noninvasive nuclear stress testing 03/27/2019 which was negative inducible ischemia and an EF of 72%. This past Tuesday, the patient developed significant shortness of breath precipitating a visit to the emergency room 08/31/2019 where she received a nebulizer therapy, but also had associated chest pressure as if an elephant was sitting on her chest, and then sent home. Patient initially did well but then yesterday morning developed severe substernal chest pressure as if 2 elephants were sitting on her chest with associated shortness of breath and gasping for air. Patient called the EMS, the patient was brought back to the emergency room where she received another nebulizer therapy which improved her breathing, and a CTA which was negative for pulmonary embolism. Her d-dimer however was elevated. Currently the patient is resting comfortably, no acute distress, no shortness of breath. She took her blood pressure when she was having symptoms at home and the systolic was in the 160s per the patient. She does not take her baby aspirin on a daily basis as dual antiplatelet therapy induces nosebleeds, but she is compliant with her Plavix. Her troponins are negative x2. EKG showed normal sinus rhythm with nonspecific ST segment flattening. No acute changes noted. [] Past Medical History Allergies/Adverse Reactions: Allergies acetaminophen [From [place]] Allergy (Verified 09/02/19 23:47) Other hydrocodone [From [place]] Allergy (Verified 09/02/19 23:47) Other metformin Allergy (Verified 09/02/19 23:47) Unknown Home Medications: Ambulatory Orders Medication Instructions Recorded insulin aspart U-100 100 unit/mL 8 unit SC BIDCM ml 07/26/17 (3 mL) subcutaneous pen Insulin Detemir [Levemir FlexPen] 11 units SQ DAILY 06/22/18 Nitroglycerin (INPATIENT USE) 0.4 mg SUBLINGUAL Q5M PRN 06/22/18 [Nitrostat] Diazepam [Valium] 2.5 - 5 mg PO DAILY PRN PRN 03/26/19 Labetalol HCl 200 mg PO BID 03/26/19 Tizanidine HCl [Zanaflex] 4 mg PO Q8H PRN #10 tab 03/27/19 simvastatin 20 mg tablet 20 mg PO QHS #90 tab 06/12/19 clopidogrel 75 mg tablet 75 mg PO DAILY #90 tab 08/14/19 lisinopril 20 mg tablet 20 mg PO BID 08/22/19 Acyclovir [Zovirax] 1 applic TOPICAL BID 08/31/19 Ciclopirox 1 applic TP QHS 08/31/19 Fluconazole [Diflucan] 150 mg PO PRN PRN 08/31/19 Furosemide [Lasix] 40 mg PO DAILY 08/31/19 Isosorbide Mononitrate [Isosorbide 30 mg PO DAILY 08/31/19 Mononitrate ER] Lidocaine [Lidocaine 5%] 1 patch TOPICAL DAILY 08/31/19 NIFEdipine [Procardia Xl] 60 mg PO DAILY 08/31/19 Neomycin/Polymyxin B/Dexametha 5 ml OP PRN PRN 08/31/19 [Maxitrol Eye Drops] Triamcinolone Acetonide 1 applicatio TP BID 08/31/19 Past Medical History (Chronic Problems): Chronic Problems (Last Reviewed 09/03/19 @ 07:[address] Ahsan Jean MD) Atherosclerosis of coronary artery of [place] heart without angina pectoris (Chronic) [id number] LAD w/ a 3.0 x 38 mm Synergy Stent 06/23/18 History of coronary artery stent placement (Chronic 06/23/18) [id number]-[id number]-Vjsj LAD w/ a 3.0 x 38 mm Synergy Stent 06/23/18 Chronic diastolic CHF (congestive heart failure) (Chronic) Peripheral vascular occlusive disease (Chronic) left peroneal and proximal left posterior tibial angioplasty and left superficial femoral atherectomy and angioplasty 02/28/19 Claudication (Chronic) Essential (primary) hypertension (Chronic) Hyperlipidemia (Chronic) Surgical History: - - Total abdominal hysterectomy, PCI x1, angioplasty left lower extremity, right rotator cuff repair, left knee arthroscopic surgery. 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 Ahsan Jean MD) Mother Arthritis Father Arthritis History Items: Heart Disease Paternal Family History: Family History (Last Reviewed 09/03/19 @ 07:[address] Ahsan Jean MD) Mother Arthritis Father Arthritis History Items: - - Patient denies any market paternal family history including heart disease, diabetes or cancer. Lives: Alone Smoking Status: Former smoker Review of Systems - Review of Systems General: Denies: Fever, Night Sweats, Fatigue Cardiovascular: Reports: Chest Discomfort, Chest Discomfort at Rest, Chest Pressure, Chest Tightness, Chest Heaviness, Shortness of Breath, Shortness of Breath at Rest. Denies: Orthopnea, PND, Peripheral Edema, Palpitations, Lightheadedness, Dizziness, Near Syncope, Syncope Respiratory: Denies: Cough, Sputum Production, Hemoptysis Gastrointestinal: Denies: Hematemesis, Hematochezia, Melena Genitourinary: Denies: Dysuria, Hematuria Skin: Denies: Rash Subjectve: Patient resting comfortably, no acute distress. Objective: Vital Signs Temp Pulse Resp BP Pulse Ox 98.1 F 74 18 162/70 H 94 09/03/19 08:10 09/03/19 08:45 09/03/19 08:10 09/03/19 08:10 09/03/19 08:10 Oxygen Delivery Method Room Air Weight: 185 lb 10.067 oz Body Mass Index (BMI) 35.0 General: Awake, Alert, Oriented x 3 HEENT: PERRL, EOMI, Sclera Non Icteric Neck: Supple, Good ROM, No Lymph Node Enlargement Lungs: Clear to auscultation Cardiovascular: Regular Rhythm, Normal S1, Normal S2, No Murmurs, No Rubs, No Gallops Vascular: No Carotid Bruits, Normal Femoral Pulses, Normal Radial Pulses, Normal Dorsalis Pedal Pulse, Normal Posterior Tibial Pulses Abdomen: Bowel Sounds Present, Soft, Non Tender, No HSM, No Organomegaly Extremities: No Cyanosis, No Clubbing, No edema Neurological: No Focal Motor or Sensory Deficit 09/02/19 23:57: WBC 8.2, RBC 4.26, Hgb 11.2 L, Hct 35.3 L, MCV 82.9, MCH 26.3 L, MCHC 31.7 L, Plt Count 202, MPV 11.4, Immature Gran % (Auto) 1.100 H, Neut % (Auto) 60.9, Lymph % (Auto) 26.1, [place] % (Auto) 8.9, Eos % (Auto) 2.1, Baso % (Auto) 0.9, Absolute Neuts (auto) 5.0, Nucleated RBC % 0 09/02/19 23:57: Sodium 142, Potassium 3.9, Chloride 111 H, Carbon Dioxide 24.0, Anion Gap 7, BUN 29 H, Creatinine 1.16 H, Est GFR (MDRD) Af Amer 59 L, Est GFR (MDRD) Non-Af 49 L, BUN/Creatinine Ratio 25.0 H, Glucose 229 H, Calcium 9.1, Troponin I < 0.015 09/02/19 23:57: B-Natriuretic Peptide 172.0 H 09/02/19 23:57: D-Dimer Quant (PE/DVT) 1.76 H* Rhythm: EKG: ECHO: Stress Test: Cardiac Cath: pending PCI: CT Surgery: Holter monitor: EPS: PPM: CXR: Chest CT Scan: Assessment/Plan 1. Chest pressure: The patient had recurrent substernal chest pressure x2 in the last 48 hours with associated severe shortness of breath and dyspnea which may be pulmonary related although she does have a known history of coronary artery disease. Patient underwent angioplasty and drug-eluting stenting to her LAD in 2017 and apparently was supposed to undergo intervention of her RCA but apparently never did so. Her most recent stress test in May 2019 was negative for inducible ischemia and she has been relatively asymptomatic. Given the patient's constellation of symptoms, risk factors, and recurrent severe substernal chest pressure I recommended that she undergo repeat catheterization and possible intervention of either her RCA or her distal left circumflex if indicated. In addition we will check her patency of her LAD stent as well. The patient will be given 4 baby aspirin's this morning and she is already compliant with her Plavix. Although her d-dimer is elevated, her CT scan apparently showed no pulmonary emboli or dissection. In addition I recommended that she undergo a repeat 2D echo with Doppler to evaluate her LV function and suspected pericardial effusion is noted on the CT scan. 2. Hyperlipidemia: Recommend obtaining a fasting blood profile and continuing statin based medications. 3. Hypertension: Recommend increasing her Imdur to 30 mg p.o. twice daily. 4. Would recommend the patient be evaluated for COPD with pulmonary function test as an outpatient given her previous smoking history. 5. Thank you very much for the opportunity to participate in the cardiac care of your patient. Consultation time took place between 915 and 9:45 AM. Code Visit Inpatient E&M: 13895 Init Hosp L2
[2019-09-03 09:35] LABS: Bedside Glucose 190 mg/dL (70-110)
--- NOTE | 2019-09-03 09:43 | ECHOD_ITS ---
Reason For Study: CHEST PAIN Procedure This was a 2D Doppler, Color Flow transthoracic echocardiogram. Exam performed portable in ICU/CCU. Left Ventricle Normal size and thickness. The estimated ejection fraction is 65 %. Stage 2 diastolic dysfunction. No regional wall motion abnormalities noted. Right Ventricle Normal size and thickness. Normal systolic function. Atria Normal left atrium. Normal right atrium. Normal atrial septum. Mitral Valve Mild diffuse mitral valve thickening. Moderate mitral annular calcification extending into the posterior leaflet. Trivial mitral valve insufficiency. Tricuspid Valve Normal tricuspid valve. Mild (1+) eccentric tricuspid valve insufficiency. Right ventricular systolic pressure estimated to be 51 mmHg. Moderate pulmonary hypertension. Aortic Valve Trisinus/trileaflet aortic valve. Pulmonic Valve Normal pulmonic valve. Great Vessels Normal aortic root. Normal arch. Normal inferior vena cava. Inferior vena cava collapse with sniff. Pericardium/Pleural No pericardial effusion. MMode/2D Measurements & Calculations LVIDd: 4.8 cm IVSd: 1.1 cm Ao root diam: 2.7 cm LVIDs: 3.1 cm LVPWd: 1.1 cm RVDd: 3.5 cm FS: 34.2 % LAV(MOD-bp): 60.0 ml LVAd ap4: 19.3 cm2 SV(MOD-sp4): 29.9 ml LAV(MOD-bp) Indexed: 32.8 ml/m2 EDV(MOD-sp4): 50.3 ml LAV(MOD-sp2): 65.2 ml EDV(sp4-el): 50.7 ml LAV(MOD-sp4): 51.6 ml LVAs ap4: 10.9 cm2 ESV(MOD-sp4): 20.4 ml ESV(sp4-el): 20.0 ml EF(MOD-sp4): 59.5 % EF(sp4-el): 60.5 % SV(sp4-el): 30.7 ml LA A4 area: 19.7 cm2 LA dimension(2D): 3.5 cm RA A4 area: 16.1 cm2 Time Measurements MV dec time: 0.22 sec Doppler Measurements & Calculations MV E max sebastian: 123.6 cm/sec Lat Peak E' Sebastian: 7.3 cm/sec Med Peak E' Sebastian: 6.2 cm/sec MV A max sebastian: 113.3 cm/sec E/E' lat: 16.9 E/E' med: 19.8 MV E/A: 1.1 Ao V2 max: 183.2 cm/sec LV V1 max: 108.1 cm/sec PA V2 max: 121.1 cm/sec Ao max P.4 mmHg LV V1 max P.7 mmHg TR max sebastian: 338.6 cm/sec TR max P.0 mmHg Interpretation Summary The estimated ejection fraction is 65 %. Stage 2 diastolic dysfunction. Trivial mitral valve insufficiency. Mild (1+) eccentric tricuspid valve insufficiency. Right ventricular systolic pressure estimated to be 51 mmHg. Moderate pulmonary hypertension. There is no comparison study available. Ordering Physician: Guido Calero Referring Physician: ABRAHAN GALVAN Performed By: Mayda Morrow RDCS
[2019-09-03 10:31] LABS: Cholesterol 185 mg/dL (200); High Density Lipoprotein 57 mg/dL; Triglycerides 109 mg/dL; Very Low Density Lipoprotein 22 mg/dL (5-40)
--- NOTE | 2019-09-03 10:47 | CL.I_ITS ---
Patient Name: NIKUNJ LORD Study Date: 09/03/2019 Performing: Guido Calero MD Ht: 61 inches 154.94 cm : 1950 Wt: 185.63 lbs 84.2 kg Age: 69 Gender: female BSA: 1.83 PROCEDURE(S) PERFORMED EC71-CHR/COR/LV WN10-ECD W OR WO PTCA, SINGLE CORONARY ARTERY CLINICAL PROFILE AND CO-MORBIDITIES Indications: ACS <= 24 hrs, New Onset Angina <= 2 months, Worsening Angina, Stable Known CAD Heart Failure: None Stress/Imaging Date: 03/27/2019 Stress Test with SPECT MPI: Negative Angina Classification Anginal Classification w/in 2 Weeks: CCS IV CAD Presentations: Unstable angina. Comorbidities/Risk Factors: Hypertension Dyslipidemia Prior PCI Peripheral Arterial Disease Diabetes Mellitus: Diabetes Therapy: Insulin CONCLUSIONS Normal Left Ventricular systolic function LVEF: by LV gram 65 % Elevated Left Ventricular End Diastolic Pressure Non obstructive coronary arteries Single vessel CAD of the mid RCA Successful PTCA/SIVAN of mid RCA with a 2.25 x 38 Promus Synergy, post dilated proximally with a 2.5 x 8 NC balloon; 75%-->0%, no dissection. Successful Mynx Control closure of RFA. RECOMMENDATIONS Referred for immediate PCI Highly recommend quitting all tobacco products Follow up with primary supervisor decorating Risk factor modification ASA Indefinitley Plavix for at least 12 months Routine post interventional care Refer for Outpatient Cardiac Rehab Manual sheath removal per protocol Follow up with Dr. Mcdowell DESCRIPTION OF PROCEDURE The patient arrived to the procedure lab. The risks and benefits of the procedure as well as a full d escription of our services here and lack of surgical backup were fully explained to the patient and/o r their significant other prior to the catheterization. The Timeout was completed, verifying the magno ect patient and procedure. The patient's procedural site was prepped and draped in the usual fashion. Local anesthetic was given subcutaneously to right groin region with Lidocaine 2%. Using a modified Seldinger technique, arterial access was obtained via the right femoral artery, a 4Fr sheath was inse rted. Left Coronary Artery selective angiography was performed in multiple views using a 4 Fr. JL5 c atheter. Right Coronary Artery selective angiography was then performed in multiple views using a 4 F r. 3DRC catheter. Left Ventriculography was performed in PIEDRA projection using a 4 Fr. Pigtail cathete r. LV to AO pullback pressures were then recordedThe images were reviewed and options discussed. A decision was then made to proceed with an Intervention, IVUS or other adjunct procedure. Arterial sheath was exchanged for a 6 Fr Sheath. HS 2 Guide catheter was inserted and engaged int o the RCA. BMW Guide wire was advanced to the RCA. 2.0 X 12 Emerge Balloon catheter was advanced acro ss lesion in the right coronary, mid. PTCA balloon inflated at 6 atms for 10 secs. PTCA balloon infla maria t at 7 atms for 10 secs. PTCA balloon inflated at 8 atms for 10 secs. PTCA balloon inflated at 8 at ms for 10 secs. Angiogram performed post balloon dilatation. 2.25 x 38 Synergy Drug Eluting stent was advanced across the lesion in the right coronary, mid. Angiogram performed pre stent deployment. Ang iogram performed post stent deployment. 2.5 x 8 NC Emerge Balloon catheter was inserted. Balloon cath eter was inserted post stent. Angiogram performed post balloon dilatation. Contrast was injected thro ugh the sheath and the Right Iliac and Femoral artery were assessed for possible closure device. The arterial sheath was pulled and a Mynx closure device was deployed for hemostasis CORONARY ANGIOGRAPHY DOMINANCE: Co- Dominant LEFT HEART ASSESSMENT Left Ventricular Ejection Fraction: by LV Gram 65 % Normal Left Ventricular systolic function Elevated Left Ventricular End Diastolic Pressure LVEDP: 20 mmHg Normal LV wall motion LEFT MAIN: Mild luminal irregularities LEFT ANTERIOR DESCENDING ARTERY: MID LAD: Previously placed stent is patent CIRCUMFLEX ARTERY: DISTAL CIRC: Mild luminal irregularities less than 30% OM 2: Ostial - Moderate luminal irregularities up to 50% RIGHT CORONARY ARTERY: MID RCA: 75 % Stenosis INTERVENTION INFORMATION LESION SITE: RCA (Mid) Lesion Complexity: High/C, lesion at bifurcation: No, thrombus present: No, lesion length: 38 mm, cul prit lesion: Yes Pre Stenosis: 75 % Pre intervention JULITA flow: 3 PROCEDURE: Drug Eluting Stent with pre and post dilatation Post Stenosis: 0 % Post intervention JULITA flow: 3 Lesion Devices: Norris .014 BMW [place]wood Straight 190cm Medtronic 6 Fr HSII 100cm Guide Catheter Barry Sci EMERGE MR 2.00x12 BALLOON Barry Sci Synergy MR SIVAN 2.25x38 Barry Sci NC EMERGE MR 2.50x08 BALLOON COMPLICATIONS No Complications PROCEDURE MEDICATIONS Versed 1 mg IV Oxygen: 2 L/min via nasal cannula Heparin 6000 unit(s) IV 09/03/2019 10:12:04 Nitro 300 mcg IC 09/03/2019 10:13:38 Nitro 200 mcg IC 09/03/2019 10:19:18 Nitro 200 mcg IC 09/03/2019 10:26:45 Nitro Paste 1 in right chest 09/03/2019 10:40:11 IV Bolus: .9 NaCl 150 ml total 09/03/2019 10:39:56 SUMMARY OF HEMODYNAMIC DATA Time AIR REST ECG 09:45:35 AO 169/69 (105) SA 10:03:50 LV 162/-15, 26 10:10:00 LV 146/-2, 19 10:10:05 LVp 151/-4, 21 10:10:10 AOp 156/60 (95) 10:10:15 Signed By Guido Calero MD On 09/03/2019 10:47:38 Guido Calero MD
[2019-09-03 10:50] LABS: ACT Activated Clotting Time 180 sec (74-137)
--- NOTE | 2019-09-03 11:14 | EKG12_ITS ---
Test Reason : POST CATH Blood Pressure : / mmHG Vent. Rate : 074 BPM Atrial Rate : 074 BPM P-R Int : 186 ms QRS Dur : 084 ms QT Int : 430 ms P-R-T Axes : 040 -23 097 degrees QTc Int : 477 ms Normal sinus rhythm with sinus arrhythmia Nonspecific T wave abnormality Prolonged QT Abnormal ECG Confirmed by DOTTIE SMITH ([id number]), news videotape editor ELLIOT COLÓN ([id number]) on 09/05/2019 3:09:03 PM Referred By: LUIS Confirmed By:DOTTIE SMITH
[2019-09-03] MEDS: 0.9% Normal Saline 1,000 ML 150 ML IV (11:15)
[2019-09-03] MEDS: Furosemide 40 MG Tablet PO (11:57)
[2019-09-03 12:01] LABS: Bedside Glucose 185 mg/dL (70-110)
[2019-09-03] MEDS: Insulin Lispro 100 UNIT/ML INSULN.PEN SC ×2 (12:35→16:59)
[2019-09-03] MEDS: Aspirin E.C. 81 MG Tablet PO (13:18)
[2019-09-03] MEDS: Nitroglycerin Oint 1 INCH PACKET TRANSDERM. ×3 (13:18→23:43)
--- NOTE | 2019-09-03 13:33 | CRPHASE1_ITS ---
Patient Communication Former Patient:: Phase I - 2017, Phase II - 12/2018 PHII Cardiac Rehab Discussed with Patient:: Yes Guide to Cardiac Rehab Given to Patient:: Yes Choice Program [facility] PHII:: Communication Given to CR, Refer to [facility] Tobacco Wrapping Machine Tender:: Guido Calero Phase II Cardiac Rehab:: Yes Sessions:: 36 sessions - 3 days/wk, 12 weeks - Patient has been through Cardiac Rehab in the past and is familiar with heart disease. Risk Factors/Lifestyle Family History: Family History (Last Reviewed 09/03/19 @ 07:[address] Ahsan Jean MD) Mother Arthritis Father Arthritis Laboratory Values: Cardiac Rehab Phase I Labs Triglycerides 109 mg/dL (-199) 09/03/19 08:53 Cholesterol 185 mg/dL (200) 09/03/19 08:53 LDL Cholesterol 106 mg/dL (0-130) 09/03/19 08:53 HDL Cholesterol 57 mg/dL (40-) 09/03/19 08:53 Cardiac Rehabilitation Info Cardiac Rehabilitation Program Information: Cardiac Rehabilitation is important for patients like you who are recovering f rom a heart problem. Cardiac rehabilitation programs are recognized as integral to the continued care of the patient with coronary heart disease. The cardiac rehabilitation program is designed to optimize a patient's physical, psychological, and social functioning. Health rn homecare work in cardiac rehabilitation programs and assist you with getting the treatments you need to get stronger and healthier - like exercise, healthy eating habits, and medications. Cardiac rehabilitation has been show to help people with heart problems live longer and have better life enjoyment than people who do not go to cardiac rehabilitation. Please contact the Cardiac Rehabilitation Program at [facility] at in two weeks if you have not heard from them.
--- NOTE | 2019-09-03 13:35 | CRPH1.INSTRU ---
General Education CAD and cardiac anatomy and function:: Patient communicates acknowledgment Explanation of diagnoses and procedures:: Patient communicates acknowledgment Sign/Symptoms of ND:: Patient communicates acknowledgment Antiplatelet therapy: Patient communicates acknowledgment Proper use of NTG-SL: Patient communicates acknowledgment Emergency procedures and activation of EMS: Patient communicates acknowledgment Compliance of all prescribed medications: Patient communicates acknowledgment - Patient has participated in CR in November-December 2018 follwoing previous PCI intervention.
[2019-09-03 16:30] LABS: Bedside Glucose 199 mg/dL (70-110)
[2019-09-03] MEDS: Insulin Lispro 100 UNIT/ML INSULN.PEN 8 UNIT SC (17:34)
[2019-09-03] MEDS: Atorvastatin Calcium 10 MG Tablet PO (21:24)
[2019-09-03 21:26] LABS: Bedside Glucose 114 mg/dL (70-110)
[2019-09-04] VITALS (22 sets, daily range): BP systolic 120–164; BP diastolic 58–122; PULSE 72–81; RESP 14–18; TEMP 36.7–37.2; O2SAT 92–99
[2019-09-04 04:40] LABS: Absolute Lymphocyte Count 1.91 X10^3/uL (0.83-4.51); Absolute Neutrophil Count 4.3 X10^3/uL (2.0-7.7); Basophil# 0.06 X10^3/uL; Basophil% 0.8 % (0-1); Eosinophil# 0.15 X10^3/uL; Hematocrit 33.5 % (37-47); Hemoglobin 10.6 g/dL (12.0-15.0); Lymphocyte # 1.91 X10^3/ul (4.0); Lymphocyte % 25.8 % (19-41); Mean Corp Hgb Conc 31.6 g/dL (32-36); Mean Corpuscular Hgb 26.2 pg (27.0-32.0); Mean Corpuscular Volume 82.9 fL (81-99); Mean Platelet Vol. 11.3 fl (6.2-12.0); Monocyte# 0.87 X10^3/uL; Monocyte% 11.8 % (0-10); NRBC Flagged by Analyzer 0 % (0-5); Neutrophil # 4.33 X10^3/uL (2.7-7.7); Neutrophil % 58.5 % (47-70); Platelet Count 192 K/mm3 (150-450); RBC Distribution Width CV 15.4 % (11.6-14.6); RBC Distribution Width SD 46.5 fl (35.1-43.9); Red Blood Count 4.04 M/mm3 (4.2-5.4); White Blood Count 7.4 K/mm3 (4.4-11.0)
[2019-09-04 04:58] LABS: ALB/GLOB Ratio 0.9 RATIO (0.9-2.4); AST(SGOT) 26 U/L (15-37); Alanine Aminotransfer ALT/SGPT 44 U/L (13-56); Alkaline Phosphatase 54 U/L (45-117); Anion Gap 7 (5-15); BUN 31 mg/dL (7-18); BUN/Creat Ratio 18.9 RATIO (10-20); Calcium,Total 8.3 mg/dL (8.5-10.1); Chloride 111 mmol/L (98-107); Creatinine, Serum 1.64 mg/dL (0.55-1.02); EST Glomerular Filtration Rate 33 mL/min (>60); Est Glom Filt Rate - Afr Amer 40 mL/min (>60); Estimated Creatinine Clearance 24.09 ml/min; Globulin 3.4 g/dL (2.2-4.2); Glucose 190 mg/dL (74-106); Potassium 3.9 mmol/L (3.5-5.1); Protein, Total 6.4 g/dL (6.4-8.2); Sodium Level 142 mmol/L (136-145)
[2019-09-04] MEDS: Nitroglycerin Oint 1 INCH PACKET TRANSDERM. (05:27)
[2019-09-04 07:05] LABS: Bedside Glucose 164 mg/dL (70-110)
[2019-09-04] MEDS: 0.9% Normal Saline 1,000 ML 125 ML IV ×3 (07:56→23:44)
[2019-09-04] MEDS: Insulin Lispro 100 UNIT/ML INSULN.PEN SC ×3 (07:57→20:41)
[2019-09-04] MEDS: Insulin Lispro 100 UNIT/ML INSULN.PEN 8 UNIT SC ×2 (07:57→16:21)
[2019-09-04] MEDS: Aspirin E.C. 81 MG Tablet PO (07:58)
--- NOTE | 2019-09-04 09:43 | PN.CARD_ITS ---
Subjectve: Patient seen and examined feels much better. No further chest pain. Right groin is clean/dry/intact, no thrills, bruits or hematoma. Telemetry with normal sinus rhythm. Hemoglobin and creatinine within nominal limits. Objective: Vital Signs Temp Pulse Resp BP Pulse Ox 98.9 F 78 16 145/70 H 99 09/04/19 08:00 09/04/19 09:00 09/04/19 09:00 09/04/19 09:00 09/04/19 09:00 Oxygen Flow Rate (L/min) 2 Oxygen Delivery Method Room Air Weight: 185 lb 10.067 oz Body Mass Index (BMI) 35.0 Intake and Output for Last 24 Hours 09/02/19 09/03/19 09/04/19 23:59 23:59 23:59 Intake Total 1384.5 / 1384.5 240 / 240 Balance 1384.5 / 1384.5 240 / 240 General: Awake, Alert, Oriented x 3 HEENT: PERRL, EOMI, Sclera Non Icteric Neck: Supple, Good ROM, No Lymph Node Enlargement Lungs: Clear to auscultation Cardiovascular: Regular Rhythm, Normal S1, Normal S2, No Murmurs, No Rubs, No Gallops Vascular: No Carotid Bruits, Normal Femoral Pulses, Normal Radial Pulses, Normal Dorsalis Pedal Pulse, Normal Posterior Tibial Pulses Abdomen: Bowel Sounds Present, Soft, Non Tender, No HSM, No Organomegaly Extremities: No Cyanosis, No Clubbing, No edema Neurological: No Focal Motor or Sensory Deficit 09/03/19 08:53: Triglycerides 109, Cholesterol 185, LDL Cholesterol 106, VLDL Cholesterol 22, HDL Cholesterol 57 09/04/19 04:30: WBC 7.4, RBC 4.04 L, Hgb 10.6 L, Hct 33.5 L, MCV 82.9, MCH 26.2 L, MCHC 31.6 L, Plt Count 192, MPV 11.3, Immature Gran % (Auto) 1.100 H, Neut % (Auto) 58.5, Lymph % (Auto) 25.8, [place] % (Auto) 11.8 H, Eos % (Auto) 2.0, Baso % (Auto) 0.8, Absolute Neuts (auto) 4.3, Nucleated RBC % 0 09/04/19 04:30: Sodium 142, Potassium 3.9, Chloride 111 H, Carbon Dioxide 24.0, Anion Gap 7, BUN 31 H, Creatinine 1.64 H, Est GFR (MDRD) Af Amer 40 L, Est GFR (MDRD) Non-Af 33 L, BUN/Creatinine Ratio 18.9, Glucose 190 H, Calcium 8.3 L, Total Bilirubin 0.40 Rhythm: EKG: ECHO: Stress Test: Cardiac Cath: PCI: CT Surgery: Holter monitor: EPS: PPM: CXR: Chest CT Scan: Medical Necessity - Tobacco Use Smoking Status: Former smoker Assessment/Plan 1. Chest pressure: The patient had recurrent substernal chest pressure x2 in the last 48 hours with associated severe shortness of breath and dyspnea which may be pulmonary related although she does have a known history of coronary artery disease. Patient underwent angioplasty and drug-eluting stenting to her LAD in 2017 and apparently was supposed to undergo intervention of her RCA but apparently never did so. Her most recent stress test in May 2019 was negative for inducible ischemia and she has been relatively asymptomatic. Patient underwent repeat catheterization yesterday, which demonstrated widely patent LAD stent, and worsening 2 tandem lesions in her small right coronary artery. She underwent elective angioplasty and drug-eluting stenting with an excellent result. Her chest pain is completely resolved. I recommended the patient continue with baby aspirin, Plavix, and she be enrolled in cardiac rehab. Although her d-dimer is elevated, her CT scan apparently showed no pulmonary emboli or dissection. In addition I recommended that she undergo a repeat 2D echo with Doppler to evaluate her LV function and suspected pericardial effusion is noted on the CT scan. 2. Hyperlipidemia: Recommend obtaining a fasting blood profile and continuing statin based medications. 3. Hypertension: Recommend increasing her Imdur to 30 mg p.o. twice daily. 4. Would recommend the patient be evaluated for COPD with pulmonary function test as an outpatient given her previous smoking history. 5. Thank you very much for the opportunity to participate in the cardiac care of your patient. Patient may be discharged home and follow-up with Dr. Mcdowell going forward. Code Visit Inpatient E&M: [id number] Subs Hosp L2
--- NOTE | 2019-09-04 10:00 | EKG12_ITS ---
Test Reason : A.M. EKG Blood Pressure : / mmHG Vent. Rate : 074 BPM Atrial Rate : 074 BPM P-R Int : 172 ms QRS Dur : 080 ms QT Int : 424 ms P-R-T Axes : 048 -20 097 degrees QTc Int : 470 ms Normal sinus rhythm T wave abnormality, consider lateral ischemia Prolonged QT Abnormal ECG When compared with ECG of 03-SEP-2019 11:04, MANUAL COMPARISON REQUIRED, DATA IS UNCONFIRMED Confirmed by DOTTIE SMITH ([id number]), brands editor ELLIOT COLÓN ([id number]) on 09/05/2019 3:09:37 PM Referred By: MATHIEU Confirmed By:DOTTIE SMITH
[2019-09-04] MEDS: Isosorbide Mononitrate 30 MG Tablet PO ×2 (10:08→20:40)
[2019-09-04] MEDS: NIFEdipine 60 MG Tablet PO (10:09)
[2019-09-04] MEDS: Lisinopril 20 MG Tablet PO (10:09)
[2019-09-04] MEDS: Labetalol 200 MG Tablet PO ×2 (10:09→20:40)
[2019-09-04] MEDS: Clopidogrel Bisulfate 75 MG Tablet PO (10:09)
[2019-09-04] MEDS: Acetaminophen 325 MG Tablet 650 MG PO ×2 (12:35→21:23)
[2019-09-04 13:26] LABS: Bedside Glucose 138 mg/dL (70-110)
[2019-09-04 14:36] LABS: Anion Gap 6 (5-15); BUN 33 mg/dL (7-18); Calcium,Total 8.5 mg/dL (8.5-10.1); Chloride 111 mmol/L (98-107); Creatinine, Serum 1.94 mg/dL (0.55-1.02); EST Glomerular Filtration Rate 27 mL/min (>60); Est Glom Filt Rate - Afr Amer 33 mL/min (>60); Estimated Creatinine Clearance 20.36 ml/min; Glucose 171 mg/dL (74-106); Potassium 4.4 mmol/L (3.5-5.1); Sodium Level 141 mmol/L (136-145)
--- NOTE | 2019-09-04 15:15 | PCM.PN.HOSP ---
Patient Problems: Active and Suspected Problems (Last Updated 09/04/19 @ 09:25 by Yue Holley) Chest pain, unspecified (Acute) Reason for Visit: Follow-up chest pain and shortness of breath Subjective: Patient is a 69-year-old lady presented with chest pain numbness of breath. Admitted to a monitored bed consultation placed to cardiology patient underwent left heart catheterization. Patient left heart cath did not demonstrate any hemodynamically significant obstructive lesions Patient seen her kidney function is worsening following her left heart catheterization subsequently started on saline with subsequent monitoring of electrolytes Objective: GENERAL: cooperative but appears anxious HEENT: Atraumatic; EYES; Anicteric, Normal Conjunctiva NECK; supple, normal thyroid, RESPIRATORY: Diminished to auscultation CARDIOVASCULAR: Regular S1 S2, GI: soft, normoactive bowel sounds, : No Renal angle tenderness; EXTREMITIES: No edema, no clubbing, MUSCULOSKELETAL: no muscle waisting NEURO: Awake; no lateralizing signs. SKIN: No Rash PSYCH; Flat affect Vitals/I&O's: Vital Signs Temp Pulse Resp BP Pulse Ox 98.2 F 76 18 120/58 L 92 09/04/19 13:26 09/04/19 15:00 09/04/19 15:00 09/04/19 15:00 09/04/19 15:00 Oxygen Flow Rate (L/min) 2 Oxygen Delivery Method Room Air Weight: 84.2 kg Body Mass Index (BMI) 35.0 Intake and Output for Last 24 Hours 09/02/19 09/03/19 09/04/19 23:59 23:59 23:59 Intake Total 1384.5 / 1384.5 240 / 240 Balance 1384.5 / 1384.5 240 / 240 Laboratory Results 09/03/19 16:26: POC Glucose 199 H 09/03/19 21:18: POC Glucose 114 H 09/04/19 04:30: WBC 7.4, RBC 4.04 L, Hgb 10.6 L, Hct 33.5 L, MCV 82.9, MCH 26.2 L, MCHC 31.6 L, RDW Std Deviation 46.5 H, RDW Coeff of [place]sey 15.4 H, Plt Count 192, MPV 11.3, Immature Gran % (Auto) 1.100 H, Neut % (Auto) 58.5, Lymph % (Auto) 25.8, [place] % (Auto) 11.8 H, Eos % (Auto) 2.0, Baso % (Auto) 0.8, Absolute Neuts (auto) 4.3, Absolute Lymphs (auto) 1.91, Nucleated RBC % 0 09/04/19 04:30: Sodium 142, Potassium 3.9, Chloride 111 H, Carbon Dioxide 24.0, Anion Gap 7, BUN 31 H, Creatinine 1.64 H, Estim Creat Clear Calc 24.09, Est GFR (MDRD) Af Amer 40 L, Est GFR (MDRD) Non-Af 33 L, BUN/Creatinine Ratio 18.9, Glucose 190 H, Calcium 8.3 L, Total Bilirubin 0.40, AST 26, ALT 44, Alkaline Phosphatase 54, Total Protein 6.4, Albumin 3.0 L, Globulin 3.4, Albumin/Globulin Ratio 0.9 09/04/19 06:56: POC Glucose 164 H 09/04/19 13:18: POC Glucose 138 H 09/04/19 14:10: Sodium 141, Potassium 4.4, Chloride 111 H, Carbon Dioxide 24.0, Anion Gap 6, BUN 33 H, Creatinine 1.94 H, Estim Creat Clear Calc 20.36, Est GFR (MDRD) Af Amer 33 L, Est GFR (MDRD) Non-Af 27 L, BUN/Creatinine Ratio 17.0, Glucose 171 H, Calcium 8.5 Current Medications Acetaminophen (Tylenol) 650 mg PO Q6H PRN PRN PRN Reason: Pain Score 1-3/10 Last Admin: 09/04/19 12:35 Dose: 650 mg Documented by: Al Hydroxide/Mg Hydroxide (Mylanta Ii) 30 ml PO Q6H PRN PRN PRN Reason: Gastric Burning Albuterol Sulfate (Ventolin Aerosols) 2.5 mg INHALATION Q2H PRN PRN PRN Reason: DYSPNEA/WHEEZING/SOB Aspirin (Ecotrin) 81 mg PO DAILY@0800 [facility] Last Admin: 09/04/19 07:58 Dose: 81 mg Documented by: Atorvastatin Calcium (Lipitor) 10 mg PO QHS [facility] Last Admin: 09/03/19 21:24 Dose: 10 mg Documented by: Atropine Sulfate () 0.5 mg IV UD PRN PRN Reason: HR <50 bpm Clopidogrel Bisulfate (Plavix) 75 mg PO DAILY [facility] Last Admin: 09/04/19 10:09 Dose: 75 mg Documented by: Glucagon () 1 mg IM .X1 PRN PRN Reason: Hypoglycemia Heparin Sodium (Beef Lung) (Heparin 500 Unit/5 Ml (100/Ml)) 500 unit IV UD PRN PRN Reason: HEPARIN FLUSH Dextrose (Dextrose 10%-Water) 250 mls @ 999 mls/hr IV .Q16M PRN; Protocol PRN Reason: HYPOGLYCEMIA Sodium Chloride () 250 mls @ 15 mls/hr IV .[id number] PRN PRN Reason: Saline Flush Sodium Chloride () 250 mls @ 15 mls/hr IV .[id number] PRN PRN Reason: Additional IVPB Infusion Sodium Chloride () 1,000 mls @ 125 mls/hr IV .Q8H [facility] Last Admin: 09/04/19 07:56 Dose: 125 mls/hr Documented by: Insulin Glargine (Lantus (Bkc)) 11 units SC DAILY [facility] Last Admin: 09/04/19 10:09 Dose: 11 units Documented by: Insulin Human Lispro (Humalog Kwikpen (Bkc)) 0 unit SC ACHS [facility]; Protocol Last Admin: 09/04/19 13:26 Dose: Not Given Documented by: Insulin Human Lispro (Humalog Kwikpen (Bkc)) 8 unit SC BIDCM [facility] Last Admin: 09/04/19 07:57 Dose: 8 u Documented by: Isosorbide Mononitrate (Imdur) 30 mg PO BID [facility] Last Admin: 09/04/19 10:08 Dose: 30 mg Documented by: Labetalol HCl (Trandate) 200 mg PO BID [facility] Last Admin: 09/04/19 10:09 Dose: 200 mg Documented by: Labetalol HCl (Trandate) 20 mg IV X1 PRN PRN Reason: SBP > 160 when pulling sheath Lorazepam (Ativan) 1 mg PO Q6H PRN PRN PRN Reason: BACK SPASMS/ANXIETY Melatonin (Melatonin) 3 mg PO QHS PRN PRN PRN Reason: INSOMNIA Metoclopramide HCl (Reglan) 5 mg IV Q6H PRN PRN PRN Reason: NAUSEA/VOMITING Nifedipine (Procardia Xl) 60 mg PO DAILY [facility] Last Admin: 09/04/19 10:09 Dose: 60 mg Documented by: Nitroglycerin (Nitrostat) 0.4 mg SUBLINGUAL Q5M PRN PRN Reason: CARDIAC/CHEST PAIN Ondansetron HCl (Zofran) 4 mg IV Q8H PRN PRN PRN Reason: NAUSEA/VOMITING Sodium Chloride () 10 - 40 ml IV UD PRN PRN Reason: SALINE FLUSH Sodium Chloride () 500 ml IV BOLUS PRN PRN Reason: VASO-VAGAL PROTOCOL Tizanidine HCl (Zanaflex) 4 mg PO Q8H PRN PRN Reason: muscle spasms STROKE Vital Signs/Narrative: Vital Signs Temp Pulse Resp BP BP Pulse Ox 09/04/19 15:00 76 18 120/58 L 92 09/04/19 14:00 76 134/86 H 95 09/04/19 13:26 98.2 F 76 16 123/65 H 96 09/04/19 11:26 73 Medical Necessity - Tobacco Use Smoking Status: Former smoker Assessment/Plan All Active Problems (Last Updated 09/04/19 @ 09:10 by Sadie Frazier) Chest pain, unspecified (Acute) Non-ST elevation (NSTEMI) myocardial infarction (Resolved 06/22/18) ACS (acute coronary syndrome) (Resolved) Acute diastolic (congestive) heart failure (Resolved) Cellulitis of buttock (Resolved) Chest pain (Resolved) Corneal injury (Resolved) Diverticulitis large intestine (Resolved) Hypertensive urgency (Resolved) Muscle cramps (Resolved) Right wrist pain (Resolved) S/P colonoscopy (Resolved) Patient is a 69-year-old lady presented with chest pain 1. Chest pain ?Patient has significant past cardiac history including stent placement to proximal LAD lesion on 06/23/2018. Admitted to monitored bed ordered serial cardiac enzymes. Given patient past significant history consult was placed to cardiology -Patient was seen in consultation by Dr. Calero who did perform left heart catheterization. Patient left heart catheter agency failed to demonstrate any obstructive lesions. 2. Acute kidney injury Suspected to be secondary to contrast-induced nephropathy following patient left heart catheterization. Started on IV fluids with subsequent monitoring of kidney function. Ordered renal duplex and consultation placed to nephrology potential nephrotoxic medications including Lasix and lisinopril discontinued 3. Hypertension ~ blood pressure controlled, home medications continued with dose adjustment as needed 4. Diabetes mellitus type II ~Uncontrolled with hyperglycemia did continue with her long acting insulin, Accu-Cheks a.c. and at bedtime and covered with sliding scale insulin 5. Dyslipidemia ~patient is on statin therapy, continued at home dose 6. Chronic diastolic congestive heart failure ?Stable 7. Obesity with BMI of 38.2 ?Weight loss advised 8. Peripheral arterial disease ?With previous left peroneal and proximal left posterior tibial angioplasty and left superficial femoral atherectomy and angioplasty 02/28/19 9. DVT prophylaxis ?Lovenox Code Visit OBSV E&M: [id number] Subsequent observation care L3
--- NOTE | 2019-09-04 15:21 | US_ITS ---
STUDY: RENAL ULTRASOUND - COMPLETE REASON FOR EXAM: Female, 69 years old. ASHISH TECHNIQUE: Ultrasound evaluation of the kidneys was performed with real-time and static mcghee-scale imaging. COMPARISON: None. FINDINGS: RIGHT KIDNEY: Normal location of the right kidney, which is normal in size. The right kidney measures 10.2 x 5.6 x 4.0 cm. There is thinning cortex of the right kidney. The renal cortex measures 0.8 cm. There is no right renal mass or cyst. There are no right renal calculi. There is no right hydronephrosis. DISTAL RIGHT URETER: There is non-visualization of the distal right ureter. LEFT KIDNEY: Normal location of the left kidney, which is normal in size. The left kidney measures 10.7 x 4.1 x 4.9 cm. There is a normal cortex of the left kidney. The renal cortex measures 1.2 cm. There is no left renal mass or cyst. There are no left renal calculi. There is no left hydronephrosis. DISTAL LEFT URETER: There is non-visualization of the distal left ureter. US/Kidney and Bladder IMPRESSION: Cortical thinning of the right kidney. Electronically Signed: Aron West DO at 21:28 EST Tel [phone], Service support ,
--- NOTE | 2019-09-04 16:06 | CASEMGMT ---
RN CM Assessment Note Presentation: Chest pain, PCI, Stent to RCA Intro role of CM and purpose of RN CM assessment to patient in room. Pt is awake, alert, anxious but able to participate in assessment. Demographics, PCP and Pharmacy verified. Lengthy conversatio with pt as she is concerned re: going home alone. States she has neighbors and friends who look in on her. Voiced concerns re: being on new medications and her shortness of breath with activity. Pt is on room air presently. Voices that she doesn't need a usp. -Discussed PT/OT evaluations and recommendation for further therapy. Reviewed [facility]- pt would like [facility] as this is who her had. Referral ordered for SN,PT/OT and called to Lashawn @ [facility] -Pt using walker here. States she does not have walker @ home and is agreeable to have RN CM order. DME companies reviewed. Pt is agreeable to [facility]. Script on front of chart, Dr. Jean notified to sign. PCP: Dr Mckinley Specialists: Dr. Calero Preferred Pharmacy: [facility] Insurance: SANJAY BRITO Prescription Benefit: yes LNOK : Friend Luci Goldsmith Living Arrangements: Lives in mobile home, 4 steps into home. Pt generally ambulates without device. Independent ADLs/IADLS. Transportation: drives DME: none per pt. Pt will need wheeled walker prior to dc. HHC: [facility] referral made Patient DC goals: Home DC PLAN: Home RN CM advised to contact cm for any concerns/needs that may arise. Pt feeling less anxious re: dc planning since she is not being dc'd today, and [facility] will be seeing pt on dc. Priscilla CERVANTES RN ACM
[2019-09-04 16:45] LABS: Bedside Glucose 177 mg/dL (70-110)
--- NOTE | 2019-09-04 17:00 | PCM.CONS.R ---
Problem List (1) ASHISH (acute kidney injury) Status: Acute Consultation - Renal 09/04/19 PCP/ Referring MD: Requesting physician: Dr Jean Primary care physician: Annette Mckinley MD Reason for Consultation:: ASHISH - History of Present Illness History of Present Illness: The patient is a 69 year old F admitted to hospital yesterday with chest pain and dyspnea. renal consulted for ASHISH. CTA was negative for PE. s/p PCI. breathing is ok now. no tuttle in place. voided about once today. - Allergies Allergies: Allergies acetaminophen [From [place]] Allergy (Verified 09/02/19 23:47) Other hydrocodone [From [place]] Allergy (Verified 09/02/19 23:47) Other metformin Allergy (Verified 09/02/19 23:47) Unknown - Current Medications Current Medications: Current Medications Acetaminophen (Tylenol) 650 mg PO Q6H PRN PRN PRN Reason: Pain Score 1-3/10 Last Admin: 09/04/19 12:35 Dose: 650 mg Documented by: Al Hydroxide/Mg Hydroxide (Mylanta Ii) 30 ml PO Q6H PRN PRN PRN Reason: Gastric Burning Albuterol Sulfate (Ventolin Aerosols) 2.5 mg INHALATION Q2H PRN PRN PRN Reason: DYSPNEA/WHEEZING/SOB Aspirin (Ecotrin) 81 mg PO DAILY@0800 [facility] Last Admin: 09/04/19 07:58 Dose: 81 mg Documented by: Atorvastatin Calcium (Lipitor) 10 mg PO QHS [facility] Last Admin: 09/03/19 21:24 Dose: 10 mg Documented by: Atropine Sulfate () 0.5 mg IV UD PRN PRN Reason: HR <50 bpm Clopidogrel Bisulfate (Plavix) 75 mg PO DAILY [facility] Last Admin: 09/04/19 10:09 Dose: 75 mg Documented by: Glucagon () 1 mg IM .X1 PRN PRN Reason: Hypoglycemia Heparin Sodium (Beef Lung) (Heparin 500 Unit/5 Ml (100/Ml)) 500 unit IV UD PRN PRN Reason: HEPARIN FLUSH Dextrose (Dextrose 10%-Water) 250 mls @ 999 mls/hr IV .Q16M PRN; Protocol PRN Reason: HYPOGLYCEMIA Sodium Chloride () 250 mls @ 15 mls/hr IV .[id number] PRN PRN Reason: Saline Flush Sodium Chloride () 250 mls @ 15 mls/hr IV .[id number] PRN PRN Reason: Additional IVPB Infusion Sodium Chloride () 1,000 mls @ 125 mls/hr IV .Q8H [facility] Last Admin: 09/04/19 16:21 Dose: 125 mls/hr Documented by: Insulin Glargine (Lantus (Bkc)) 11 units SC DAILY [facility] Last Admin: 09/04/19 10:09 Dose: 11 units Documented by: Insulin Human Lispro (Humalog Kwikpen (Bkc)) 0 unit SC ACHS [facility]; Protocol Last Admin: 09/04/19 16:21 Dose: 1 u Documented by: Insulin Human Lispro (Humalog Kwikpen (Bkc)) 8 unit SC BIDCM [facility] Last Admin: 09/04/19 16:21 Dose: 8 u Documented by: Isosorbide Mononitrate (Imdur) 30 mg PO BID [facility] Last Admin: 09/04/19 10:08 Dose: 30 mg Documented by: Labetalol HCl (Trandate) 200 mg PO BID [facility] Last Admin: 09/04/19 10:09 Dose: 200 mg Documented by: Labetalol HCl (Trandate) 20 mg IV X1 PRN PRN Reason: SBP > 160 when pulling sheath Lorazepam (Ativan) 1 mg PO Q6H PRN PRN PRN Reason: BACK SPASMS/ANXIETY Melatonin (Melatonin) 3 mg PO QHS PRN PRN PRN Reason: INSOMNIA Metoclopramide HCl (Reglan) 5 mg IV Q6H PRN PRN PRN Reason: NAUSEA/VOMITING Nifedipine (Procardia Xl) 60 mg PO DAILY [facility] Last Admin: 09/04/19 10:09 Dose: 60 mg Documented by: Nitroglycerin (Nitrostat) 0.4 mg SUBLINGUAL Q5M PRN PRN Reason: CARDIAC/CHEST PAIN Ondansetron HCl (Zofran) 4 mg IV Q8H PRN PRN PRN Reason: NAUSEA/VOMITING Sodium Chloride () 10 - 40 ml IV UD PRN PRN Reason: SALINE FLUSH Sodium Chloride () 500 ml IV BOLUS PRN PRN Reason: VASO-VAGAL PROTOCOL Tizanidine HCl (Zanaflex) 4 mg PO Q8H PRN PRN Reason: muscle spasms - Past Medical History Past Medical History (Chronic Problems): Chronic Problems (Last Updated 09/04/19 @ 09:25 by Yue Holley) Atherosclerosis of coronary artery of [place] heart without angina pectoris (Chronic) History of coronary artery stent placement (Chronic 09/03/19) [id number] LAD w/ a 3.0 x 38 mm Synergy Stent 06/23/18; PTCA/SIVAN of mid RCA with a 2.25 x 38 Promus Synergy 09/03/2019 Chronic diastolic CHF (congestive heart failure) (Chronic) Peripheral vascular occlusive disease (Chronic) left peroneal and proximal left posterior tibial angioplasty and left superficial femoral atherectomy and angioplasty 02/28/19 Claudication (Chronic) Essential (primary) hypertension (Chronic) Hyperlipidemia (Chronic) - Past Surgical History Surgical History: - - Total abdominal hysterectomy, PCI x1, angioplasty left lower extremity, right rotator cuff repair, left knee arthroscopic surgery. - Social History Smoking Status: Former smoker - Family History Maternal Family History: Family History (Last Reviewed 09/03/19 @ 07:[address] Ahsan Jean MD) Mother Arthritis Father Arthritis History Items: Heart Disease Paternal Family History: Family History (Last Reviewed 09/03/19 @ 07:[address] Ahsan Jean MD) Mother Arthritis Father Arthritis History Items: - - Patient denies any market paternal family history including heart disease, diabetes or cancer. Review of Systems Constitutional: Denies: Chills, Fever, Weight Change HEENT: Denies: Head Aches, Sinus Congestion, Sinus Drainage Cardiovascular: Denies: Chest Pain, Palpitations Respiratory: Denies: Cough, Shortness of breath at rest, Sputum production Gastrointestinal: Denies: Abdominal Pain, Nausea, Vomiting Genitourinary: Denies: Dysuria Musculoskeletal: Denies: Joint Pain, Joint Tenderness Skin: Denies: Rash, Wounds Neurological: Denies: Numbness, Tingling, Focal weakness Psychiatric: Denies: Anxiety, Depression, Homicidal Ideations, Suicidal Ideations Hematologic/ Lymphatic: Denies: Easy Bruising, Easy Bleeding Patient Problems: Active and Suspected Problems (Last Updated 09/04/19 @ 09:25 by Yue Holley) ASHISH (acute kidney injury) (Acute) Chest pain, unspecified (Acute) - Physical Exam Vitals/I&O's: Vital Signs Temp Pulse Resp BP Pulse Ox 98.2 F 75 18 120/58 L 92 09/04/19 13:26 09/04/19 15:17 09/04/19 15:00 09/04/19 15:00 09/04/19 15:00 Oxygen Flow Rate (L/min) 2 Oxygen Delivery Method Room Air Weight: 84.2 kg Body Mass Index (BMI) 35.0 Intake and Output for Last 24 Hours 09/02/19 09/03/19 09/04/19 23:59 23:59 23:59 Intake Total 1384.5 / 1384.5 1240 / 1240 Balance 1384.5 / 1384.5 1240 / 1240 General: Alert, Oriented x3, Cooperative HEENT: Atraumatic, PERRLA, EOMI, Normocephalic Neck: Supple, No JVD, Negative Carotid Bruits Lungs: Clear to auscultation, Normal air movement Cardiovascular: Regular rate, No murmurs Abdomen: Bowel Sounds Present, Soft, Non Tender Extremities: No edema, Capillary Refill Less than 3 Seconds Skin: No rashes, No breakdown Musculoskeletal: No Tenderness to Palpation of Joints or Extremities Neurological: Cranial nerves II-XII grossly intact Psych/Mental Status: Normal Affect, Appropriate Laboratory Results 09/03/19 21:18: POC Glucose 114 H 09/04/19 04:30: WBC 7.4, RBC 4.04 L, Hgb 10.6 L, Hct 33.5 L, MCV 82.9, MCH 26.2 L, MCHC 31.6 L, RDW Std Deviation 46.5 H, RDW Coeff of [place] 15.4 H, Plt Count 192, MPV 11.3, Immature Gran % (Auto) 1.100 H, Neut % (Auto) 58.5, Lymph % (Auto) 25.8, [place] % (Auto) 11.8 H, Eos % (Auto) 2.0, Baso % (Auto) 0.8, Absolute Neuts (auto) 4.3, Absolute Lymphs (auto) 1.91, Nucleated RBC % 0 09/04/19 04:30: Sodium 142, Potassium 3.9, Chloride 111 H, Carbon Dioxide 24.0, Anion Gap 7, BUN 31 H, Creatinine 1.64 H, Estim Creat Clear Calc 24.09, Est GFR (MDRD) Af Amer 40 L, Est GFR (MDRD) Non-Af 33 L, BUN/Creatinine Ratio 18.9, Glucose 190 H, Calcium 8.3 L, Total Bilirubin 0.40, AST 26, ALT 44, Alkaline Phosphatase 54, Total Protein 6.4, Albumin 3.0 L, Globulin 3.4, Albumin/Globulin Ratio 0.9 09/04/19 06:56: POC Glucose 164 H 09/04/19 13:18: POC Glucose 138 H 09/04/19 14:10: Sodium 141, Potassium 4.4, Chloride 111 H, Carbon Dioxide 24.0, Anion Gap 6, BUN 33 H, Creatinine 1.94 H, Estim Creat Clear Calc 20.36, Est GFR (MDRD) Af Amer 33 L, Est GFR (MDRD) Non-Af 27 L, BUN/Creatinine Ratio 17.0, Glucose 171 H, Calcium 8.5 09/04/19 16:16: POC Glucose 177 H Current Medications Acetaminophen (Tylenol) 650 mg PO Q6H PRN PRN PRN Reason: Pain Score 1-3/10 Last Admin: 09/04/19 12:35 Dose: 650 mg Documented by: Al Hydroxide/Mg Hydroxide (Mylanta Ii) 30 ml PO Q6H PRN PRN PRN Reason: Gastric Burning Albuterol Sulfate (Ventolin Aerosols) 2.5 mg INHALATION Q2H PRN PRN PRN Reason: DYSPNEA/WHEEZING/SOB Aspirin (Ecotrin) 81 mg PO DAILY@0800 [facility] Last Admin: 09/04/19 07:58 Dose: 81 mg Documented by: Atorvastatin Calcium (Lipitor) 10 mg PO QHS [facility] Last Admin: 09/03/19 21:24 Dose: 10 mg Documented by: Atropine Sulfate () 0.5 mg IV UD PRN PRN Reason: HR <50 bpm Clopidogrel Bisulfate (Plavix) 75 mg PO DAILY [facility] Last Admin: 09/04/19 10:09 Dose: 75 mg Documented by: Glucagon () 1 mg IM .X1 PRN PRN Reason: Hypoglycemia Heparin Sodium (Beef Lung) (Heparin 500 Unit/5 Ml (100/Ml)) 500 unit IV UD PRN PRN Reason: HEPARIN FLUSH Dextrose (Dextrose 10%-Water) 250 mls @ 999 mls/hr IV .Q16M PRN; Protocol PRN Reason: HYPOGLYCEMIA Sodium Chloride () 250 mls @ 15 mls/hr IV .[id number] PRN PRN Reason: Saline Flush Sodium Chloride () 250 mls @ 15 mls/hr IV .[id number] PRN PRN Reason: Additional IVPB Infusion Sodium Chloride () 1,000 mls @ 125 mls/hr IV .Q8H [facility] Last Admin: 09/04/19 16:21 Dose: 125 mls/hr Documented by: Insulin Glargine (Lantus (Bk)) 11 units SC DAILY [facility] Last Admin: 09/04/19 10:09 Dose: 11 units Documented by: Insulin Human Lispro (Humalog Kwikpen ([facility])) 0 unit SC ACHS [facility]; Protocol Last Admin: 09/04/19 16:21 Dose: 1 u Documented by: Insulin Human Lispro (Humalog Kwikpen ([facility])) 8 unit SC BIDCM [facility] Last Admin: 09/04/19 16:21 Dose: 8 u Documented by: Isosorbide Mononitrate (Imdur) 30 mg PO BID [facility] Last Admin: 09/04/19 10:08 Dose: 30 mg Documented by: Labetalol HCl (Trandate) 200 mg PO BID [facility] Last Admin: 09/04/19 10:09 Dose: 200 mg Documented by: Labetalol HCl (Trandate) 20 mg IV X1 PRN PRN Reason: SBP > 160 when pulling sheath Lorazepam (Ativan) 1 mg PO Q6H PRN PRN PRN Reason: BACK SPASMS/ANXIETY Melatonin (Melatonin) 3 mg PO QHS PRN PRN PRN Reason: INSOMNIA Metoclopramide HCl (Reglan) 5 mg IV Q6H PRN PRN PRN Reason: NAUSEA/VOMITING Nifedipine (Procardia Xl) 60 mg PO DAILY [facility] Last Admin: 09/04/19 10:09 Dose: 60 mg Documented by: Nitroglycerin (Nitrostat) 0.4 mg SUBLINGUAL Q5M PRN PRN Reason: CARDIAC/CHEST PAIN Ondansetron HCl (Zofran) 4 mg IV Q8H PRN PRN PRN Reason: NAUSEA/VOMITING Sodium Chloride () 10 - 40 ml IV UD PRN PRN Reason: SALINE FLUSH Sodium Chloride () 500 ml IV BOLUS PRN PRN Reason: VASO-VAGAL PROTOCOL Tizanidine HCl (Zanaflex) 4 mg PO Q8H PRN PRN Reason: muscle spasms Assessment/Plan All Active Problems (Last Updated 09/04/19 @ 09:10 by Sadie Frazier) ASHISH (acute kidney injury) (Acute) Chest pain, unspecified (Acute) Non-ST elevation (NSTEMI) myocardial infarction (Resolved 06/22/18) ACS (acute coronary syndrome) (Resolved) Acute diastolic (congestive) heart failure (Resolved) Cellulitis of buttock (Resolved) Chest pain (Resolved) Corneal injury (Resolved) Diverticulitis large intestine (Resolved) Hypertensive urgency (Resolved) Muscle cramps (Resolved) Right wrist pain (Resolved) S/P colonoscopy (Resolved) ASHISH. baseline creatinine is 1.1 on admission. no prior kidney disease. received CTA and PCI. as per records in total 470 cc of contrast. most likely RASHARD. remains oliguric. will give a dose of IV lasix to see if we can drive urine output. typically peaks in 4-5 days and then improves after. if no urine output by tomorrow, dc IV fluids and let it run the course. no acute indications for [employer] dyspnea. feels ok now. dc fluids if any dyspnea
[2019-09-04] MEDS: Furosemide 100 MG/10 ML Vial 60 MG IV (17:10)
[2019-09-04] MEDS: Atorvastatin Calcium 10 MG Tablet PO (20:40)
[2019-09-04 20:50] LABS: Bedside Glucose 162 mg/dL (70-110)
[2019-09-05] VITALS (11 sets, daily range): BP systolic 145–162; BP diastolic 67–73; PULSE 67–84; RESP 18–20; TEMP 36.8–37.2; O2SAT 96
[2019-09-05 04:17] LABS: Hematocrit 31.1 % (37-47); Hemoglobin 9.7 g/dL (12.0-15.0); Mean Corp Hgb Conc 31.2 g/dL (32-36); Mean Corpuscular Hgb 25.8 pg (27.0-32.0); Mean Corpuscular Volume 82.7 fL (81-99); Platelet Count 181 K/mm3 (150-450); RBC Distribution Width CV 15.5 % (11.6-14.6); RBC Distribution Width SD 46.8 fl (35.1-43.9); Red Blood Count 3.76 M/mm3 (4.2-5.4); White Blood Count 8.8 K/mm3 (4.4-11.0)
[2019-09-05 04:30] LABS: Anion Gap 6 (5-15); BUN 35 mg/dL (7-18); BUN/Creat Ratio 18.4 RATIO (10-20); Calcium,Total 7.8 mg/dL (8.5-10.1); Chloride 115 mmol/L (98-107); EST Glomerular Filtration Rate 28 mL/min (>60); Est Glom Filt Rate - Afr Amer 34 mL/min (>60); Estimated Creatinine Clearance 20.79 ml/min; Glucose 119 mg/dL (74-106); Magnesium 1.9 mg/dL (1.6-2.6); Potassium 3.9 mmol/L (3.5-5.1); Sodium Level 143 mmol/L (136-145)
--- NOTE | 2019-09-05 07:08 | PCM.PN.HOSP ---
Patient Problems: Active and Suspected Problems (Last Updated 09/04/19 @ 09:25 by Yue Holley) ASHISH (acute kidney injury) (Acute) Chest pain, unspecified (Acute) Reason for Visit: Follow-up chest pain and renal failure Subjective: Patient is a 69-year-old lady admitted with chest pain underwent left heart catheterization which failed to demonstrate any hemodynamically significant lesions. Patient subsequently developed acute kidney injury attributed to contrast-induced nephropathy started on IV fluids. Patient kidney function continues to worsen. Ordered renal duplex with consultation placed to nephrology. Objective: GENERAL: cooperative HEENT: Atraumatic; EYES; Anicteric, Normal Conjunctiva NECK; supple, normal thyroid, RESPIRATORY: Diminished to auscultation CARDIOVASCULAR: Regular S1 S2, GI: soft, normoactive bowel sounds, : No Renal angle tenderness; EXTREMITIES: No edema, no clubbing, MUSCULOSKELETAL: no muscle waisting NEURO: Awake; no lateralizing signs. SKIN: No Rash PSYCH; Flat affect Vitals/I&O's: Vital Signs Temp Pulse Resp BP Pulse Ox 98.7 F 80 20 H 145/67 H 96 09/05/19 02:40 09/05/19 04:00 09/05/19 02:40 09/05/19 02:40 09/05/19 02:40 Oxygen Flow Rate (L/min) 2 Oxygen Delivery Method Nasal Cannula Weight: 87 kg Body Mass Index (BMI) 35.0 Intake and Output for Last 24 Hours 09/03/19 09/04/19 09/05/19 23:59 23:59 23:59 Intake Total 1384.5 / 1384.5 2162.92 / 2282.92 953.33 / 953.33 Output Total 200 / 400 800 / 800 Balance 1384.5 / 1384.5 1962.92 / 1882.92 153.33 / 153.33 Laboratory Results 09/04/19 13:18: POC Glucose 138 H 09/04/19 14:10: Sodium 141, Potassium 4.4, Chloride 111 H, Carbon Dioxide 24.0, Anion Gap 6, BUN 33 H, Creatinine 1.94 H, Estim Creat Clear Calc 20.36, Est GFR (MDRD) Af Amer 33 L, Est GFR (MDRD) Non-Af 27 L, BUN/Creatinine Ratio 17.0, Glucose 171 H, Calcium 8.5 09/04/19 16:16: POC Glucose 177 H 09/04/19 20:38: POC Glucose 162 H 09/05/19 04:10: WBC 8.8, RBC 3.76 L, Hgb 9.7 L, Hct 31.1 L, MCV 82.7, MCH 25.8 L, MCHC 31.2 L, RDW Std Deviation 46.8 H, RDW Coeff of [place] 15.5 H, Plt Count 181, MPV 11.0 09/05/19 04:10: Sodium 143, Potassium 3.9, Chloride 115 H, Carbon Dioxide 22.0, Anion Gap 6, BUN 35 H, Creatinine 1.90 H, Estim Creat Clear Calc 20.79, Est GFR (MDRD) Af Amer 34 L, Est GFR (MDRD) Non-Af 28 L, BUN/Creatinine Ratio 18.4, Glucose 119 H, Calcium 7.8 L, Magnesium 1.9 Current Medications Acetaminophen (Tylenol) 650 mg PO Q6H PRN PRN PRN Reason: Pain Score 1-3/10 Last Admin: 09/04/19 21:23 Dose: 650 mg Documented by: Al Hydroxide/Mg Hydroxide (Mylanta Ii) 30 ml PO Q6H PRN PRN PRN Reason: Gastric Burning Albuterol Sulfate (Ventolin Aerosols) 2.5 mg INHALATION Q2H PRN PRN PRN Reason: DYSPNEA/WHEEZING/SOB Aspirin (Ecotrin) 81 mg PO DAILY@0800 [facility] Last Admin: 09/04/19 07:58 Dose: 81 mg Documented by: Atorvastatin Calcium (Lipitor) 10 mg PO QHS [facility] Last Admin: 09/04/19 20:40 Dose: 10 mg Documented by: Atropine Sulfate () 0.5 mg IV UD PRN PRN Reason: HR <50 bpm Clopidogrel Bisulfate (Plavix) 75 mg PO DAILY [facility] Last Admin: 09/04/19 10:09 Dose: 75 mg Documented by: Glucagon () 1 mg IM .X1 PRN PRN Reason: Hypoglycemia Heparin Sodium (Beef Lung) (Heparin 500 Unit/5 Ml (100/Ml)) 500 unit IV UD PRN PRN Reason: HEPARIN FLUSH Dextrose (Dextrose 10%-Water) 250 mls @ 999 mls/hr IV .Q16M PRN; Protocol PRN Reason: HYPOGLYCEMIA Sodium Chloride () 250 mls @ 15 mls/hr IV .[id number] PRN PRN Reason: Saline Flush Sodium Chloride () 250 mls @ 15 mls/hr IV .[id number] PRN PRN Reason: Additional IVPB Infusion Sodium Chloride () 1,000 mls @ 125 mls/hr IV .Q8H [facility] Last Infusion: 09/05/19 06:24 Dose: 125 mls/hr Documented by: Insulin Glargine (Lantus (Bkc)) 11 units SC DAILY [facility] Last Admin: 09/04/19 10:09 Dose: 11 units Documented by: Insulin Human Lispro (Humalog Kwikpen ([facility])) 0 unit SC ACHS [facility]; Protocol Last Admin: 09/04/19 20:41 Dose: 1 u Documented by: Insulin Human Lispro (Humalog Kwikpen ([facility])) 8 unit SC BIDCM [facility] Last Admin: 09/04/19 16:21 Dose: 8 u Documented by: Isosorbide Mononitrate (Imdur) 30 mg PO BID [facility] Last Admin: 09/04/19 20:40 Dose: 30 mg Documented by: Labetalol HCl (Trandate) 200 mg PO BID [facility] Last Admin: 09/04/19 20:40 Dose: 200 mg Documented by: Labetalol HCl (Trandate) 20 mg IV X1 PRN PRN Reason: SBP > 160 when pulling sheath Lorazepam (Ativan) 1 mg PO Q6H PRN PRN PRN Reason: BACK SPASMS/ANXIETY Melatonin (Melatonin) 3 mg PO QHS PRN PRN PRN Reason: INSOMNIA Metoclopramide HCl (Reglan) 5 mg IV Q6H PRN PRN PRN Reason: NAUSEA/VOMITING Nifedipine (Procardia Xl) 60 mg PO DAILY [facility] Last Admin: 09/04/19 10:09 Dose: 60 mg Documented by: Nitroglycerin (Nitrostat) 0.4 mg SUBLINGUAL Q5M PRN PRN Reason: CARDIAC/CHEST PAIN Ondansetron HCl (Zofran) 4 mg IV Q8H PRN PRN PRN Reason: NAUSEA/VOMITING Sodium Chloride () 10 - 40 ml IV UD PRN PRN Reason: SALINE FLUSH Sodium Chloride () 500 ml IV BOLUS PRN PRN Reason: VASO-VAGAL PROTOCOL Tizanidine HCl (Zanaflex) 4 mg PO Q8H PRN PRN Reason: muscle spasms STROKE Vital Signs/Narrative: Vital Signs Pulse 09/05/19 04:00 80 Medical Necessity - Tobacco Use Smoking Status: Former smoker Assessment/Plan All Active Problems (Last Updated 09/04/19 @ 09:10 by Sadie Frazier) ASHISH (acute kidney injury) (Acute) Chest pain, unspecified (Acute) Non-ST elevation (NSTEMI) myocardial infarction (Resolved 06/22/18) ACS (acute coronary syndrome) (Resolved) Acute diastolic (congestive) heart failure (Resolved) Cellulitis of buttock (Resolved) Chest pain (Resolved) Corneal injury (Resolved) Diverticulitis large intestine (Resolved) Hypertensive urgency (Resolved) Muscle cramps (Resolved) Right wrist pain (Resolved) S/P colonoscopy (Resolved) Patient is a 69-year-old lady presented with chest pain 1. Chest pain ?Patient has significant past cardiac history including stent placement to proximal LAD lesion on 06/23/2018. Admitted to monitored bed ordered serial cardiac enzymes. Given patient past significant history consult was placed to cardiology -Patient was seen in consultation by Dr. Calero who did perform left heart catheterization. Patient left heart catheter agency failed to demonstrate any obstructive lesions. -[id number]; remains chest pain-free 2. Acute kidney injury Suspected to be secondary to contrast-induced nephropathy following patient left heart catheterization. Started on IV fluids with subsequent monitoring of kidney function. Ordered renal duplex and consultation placed to nephrology potential nephrotoxic medications including Lasix and lisinopril discontinued -09/05/2019 Patient kidney function continues to worsen. Ordered renal duplex with consultation placed to nephrology. 3. Hypertension ~ blood pressure controlled, home medications continued with dose adjustment as needed 4. Diabetes mellitus type II ~Uncontrolled with hyperglycemia did continue with her long acting insulin, Accu-Cheks a.c. and at bedtime and covered with sliding scale insulin 5. Dyslipidemia ~patient is on statin therapy, continued at home dose 6. Chronic diastolic congestive heart failure ?Stable 7. Obesity with BMI of 38.2 ?Weight loss advised 8. Peripheral arterial disease ?With previous left peroneal and proximal left posterior tibial angioplasty and left superficial femoral atherectomy and angioplasty 02/28/19 9. DVT prophylaxis ?Lovenox Code Visit Inpatient E&M: 56555 Subs Hosp L2
[2019-09-05] MEDS: NIFEdipine 60 MG Tablet PO (07:55)
[2019-09-05] MEDS: Clopidogrel Bisulfate 75 MG Tablet PO (07:55)
[2019-09-05] MEDS: Isosorbide Mononitrate 30 MG Tablet PO ×2 (07:55→20:48)
[2019-09-05] MEDS: Labetalol 200 MG Tablet PO ×2 (07:55→20:49)
[2019-09-05] MEDS: Aspirin E.C. 81 MG Tablet PO (07:55)
[2019-09-05] MEDS: Insulin Lispro 100 UNIT/ML INSULN.PEN 8 UNIT SC ×2 (08:01→16:31)
[2019-09-05 08:16] LABS: Bedside Glucose 135 mg/dL (70-110)
--- NOTE | 2019-09-05 10:00 | EKG12_ITS ---
Test Reason : AM EKG Blood Pressure : / mmHG Vent. Rate : 074 BPM Atrial Rate : 074 BPM P-R Int : 184 ms QRS Dur : 078 ms QT Int : 416 ms P-R-T Axes : 032 -14 101 degrees QTc Int : 461 ms Normal sinus rhythm T wave abnormality, consider lateral ischemia Abnormal ECG When compared with ECG of 04-SEP-2019 04:51, MANUAL COMPARISON REQUIRED, DATA IS UNCONFIRMED Confirmed by DOTTIE GUADALUPE, FANNY ([id number]), design editor MANDO FINE ([id number]) on 09/10/2019 8:56:55 AM Referred By: MATHIEU Confirmed By:CHARO SINCLAIR MD
[2019-09-05] MEDS: Insulin Lispro 100 UNIT/ML INSULN.PEN SC ×2 (11:22→20:54)
[2019-09-05 11:26] LABS: Bedside Glucose 161 mg/dL (70-110)
--- NOTE | 2019-09-05 11:26 | PN.RENAL_ITS ---
Patient Problems: Active and Suspected Problems (Last Updated 09/04/19 @ 09:25 by Yue Holley) ASHISH (acute kidney injury) (Acute) Chest pain, unspecified (Acute) Subjective: No new complaints. - Physical Exam Vitals/I&O's: Vital Signs Temp Pulse Resp BP Pulse Ox 98.2 F 76 18 146/73 H 96 09/05/19 08:40 09/05/19 08:40 09/05/19 08:40 09/05/19 08:40 09/05/19 08:40 Oxygen Flow Rate (L/min) 2 Oxygen Delivery Method Room Air Weight: 87 kg Body Mass Index (BMI) 35.0 Intake and Output for Last 24 Hours 09/03/19 09/04/19 09/05/19 23:59 23:59 23:59 Intake Total 1384.5 / 1384.5 2162.92 / 2282.92 1120.00 / 1120.00 Output Total 200 / 400 800 / 800 Balance 1384.5 / 1384.5 1962.92 / 1882.92 320.00 / 320.00 General: Alert, Oriented x3, Cooperative HEENT: Atraumatic, PERRLA, EOMI, Normocephalic Neck: Supple, No JVD, Negative Carotid Bruits Lungs: Clear to auscultation, Normal air movement Cardiovascular: Regular rate, No murmurs Abdomen: Bowel Sounds Present, Soft, Non Tender Extremities: No edema, Capillary Refill Less than 3 Seconds Skin: No rashes, No breakdown Musculoskeletal: No Tenderness to Palpation of Joints or Extremities Neurological: Cranial nerves II-XII grossly intact Psych/Mental Status: Normal Affect, Appropriate Laboratory Results 09/04/19 13:18: POC Glucose 138 H 09/04/19 14:10: Sodium 141, Potassium 4.4, Chloride 111 H, Carbon Dioxide 24.0, Anion Gap 6, BUN 33 H, Creatinine 1.94 H, Estim Creat Clear Calc 20.36, Est GFR (MDRD) Af Amer 33 L, Est GFR (MDRD) Non-Af 27 L, BUN/Creatinine Ratio 17.0, Glucose 171 H, Calcium 8.5 09/04/19 16:16: POC Glucose 177 H 09/04/19 20:38: POC Glucose 162 H 09/05/19 04:10: WBC 8.8, RBC 3.76 L, Hgb 9.7 L, Hct 31.1 L, MCV 82.7, MCH 25.8 L , MCHC 31.2 L, RDW Std Deviation 46.8 H, RDW Coeff of Chelsey 15.5 H, Plt Count 181, MPV 11.0 09/05/19 04:10: Sodium 143, Potassium 3.9, Chloride 115 H, Carbon Dioxide 22.0, Anion Gap 6, BUN 35 H, Creatinine 1.90 H, Estim Creat Clear Calc 20.79, Est GFR (MDRD) Af Amer 34 L, Est GFR (MDRD) Non-Af 28 L, BUN/Creatinine Ratio 18.4, Glucose 119 H, Calcium 7.8 L, Magnesium 1.9 09/05/19 08:00: POC Glucose 135 H 09/05/19 11:20: POC Glucose 161 H Current Medications Acetaminophen (Tylenol) 650 mg PO Q6H PRN PRN PRN Reason: Pain Score 1-3/10 Last Admin: 09/04/19 21:23 Dose: 650 mg Documented by: Al Hydroxide/Mg Hydroxide (Mylanta Ii) 30 ml PO Q6H PRN PRN PRN Reason: Gastric Burning Albuterol Sulfate (Ventolin Aerosols) 2.5 mg INHALATION Q2H PRN PRN PRN Reason: DYSPNEA/WHEEZING/SOB Aspirin (Ecotrin) 81 mg PO DAILY@0800 [facility] Last Admin: 09/05/19 07:55 Dose: 81 mg Documented by: Atorvastatin Calcium (Lipitor) 10 mg PO QHS [facility] Last Admin: 09/04/19 20:40 Dose: 10 mg Documented by: Atropine Sulfate () 0.5 mg IV UD PRN PRN Reason: HR <50 bpm Clopidogrel Bisulfate (Plavix) 75 mg PO DAILY [facility] Last Admin: 09/05/19 07:55 Dose: 75 mg Documented by: Glucagon () 1 mg IM .X1 PRN PRN Reason: Hypoglycemia Heparin Sodium (Beef Lung) (Heparin 500 Unit/5 Ml (100/Ml)) 500 unit IV UD PRN PRN Reason: HEPARIN FLUSH Dextrose (Dextrose 10%-Water) 250 mls @ 999 mls/hr IV .Q16M PRN; Protocol PRN Reason: HYPOGLYCEMIA Sodium Chloride () 250 mls @ 15 mls/hr IV .[id number] PRN PRN Reason: Saline Flush Sodium Chloride () 250 mls @ 15 mls/hr IV .[id number] PRN PRN Reason: Additional IVPB Infusion Sodium Chloride () 1,000 mls @ 125 mls/hr IV .Q8H [facility] Last Infusion: 09/05/19 08:02 Dose: Infused Documented by: Insulin Glargine (Lantus (Bkc)) 11 units SC DAILY [facility] Last Admin: 09/05/19 07:56 Dose: 11 units Documented by: Insulin Human Lispro (Humalog Kwikpen (Bk)) 0 unit SC ACHS [facility]; Protocol Last Admin: 09/05/19 11:22 Dose: 1 u Documented by: Insulin Human Lispro (Humalog Kwikpen ([facility])) 8 unit SC BIDCM [facility] Last Admin: 09/05/19 08:01 Dose: 8 u Documented by: Isosorbide Mononitrate (Imdur) 30 mg PO BID [facility] Last Admin: 09/05/19 07:55 Dose: 30 mg Documented by: Labetalol HCl (Trandate) 200 mg PO BID [facility] Last Admin: 09/05/19 07:55 Dose: 200 mg Documented by: Labetalol HCl (Trandate) 20 mg IV X1 PRN PRN Reason: SBP > 160 when pulling sheath Lorazepam (Ativan) 1 mg PO Q6H PRN PRN PRN Reason: BACK SPASMS/ANXIETY Melatonin (Melatonin) 3 mg PO QHS PRN PRN PRN Reason: INSOMNIA Metoclopramide HCl (Reglan) 5 mg IV Q6H PRN PRN PRN Reason: NAUSEA/VOMITING Nifedipine (Procardia Xl) 60 mg PO DAILY [facility] Last Admin: 09/05/19 07:55 Dose: 60 mg Documented by: Nitroglycerin (Nitrostat) 0.4 mg SUBLINGUAL Q5M PRN PRN Reason: CARDIAC/CHEST PAIN Ondansetron HCl (Zofran) 4 mg IV Q8H PRN PRN PRN Reason: NAUSEA/VOMITING Sodium Chloride () 10 - 40 ml IV UD PRN PRN Reason: SALINE FLUSH Sodium Chloride () 500 ml IV BOLUS PRN PRN Reason: VASO-VAGAL PROTOCOL Tizanidine HCl (Zanaflex) 4 mg PO Q8H PRN PRN Reason: muscle spasms Medical Necessity - Tobacco Use Smoking Status: Former smoker Assessment/Plan All Active Problems (Last Updated 09/04/19 @ 09:10 by Sadie Frazier) ASHISH (acute kidney injury) (Acute) Chest pain, unspecified (Acute) Non-ST elevation (NSTEMI) myocardial infarction (Resolved 06/22/18) ACS (acute coronary syndrome) (Resolved) Acute diastolic (congestive) heart failure (Resolved) Cellulitis of buttock (Resolved) Chest pain (Resolved) Corneal injury (Resolved) Diverticulitis large intestine (Resolved) Hypertensive urgency (Resolved) Muscle cramps (Resolved) Right wrist pain (Resolved) S/P colonoscopy (Resolved) ASHISH. baseline creatinine is 1.1 on admission. no prior kidney disease. received CTA and PCI. as per records in total 470 cc of contrast. most likely RASHARD. Creatinine today is about the same as yesterday. Urine output has improved. Clinically looks euvolemic. IV fluids have been discontinued. No need for diuretics today. Hopefully renal function will improve.
--- NOTE | 2019-09-05 14:41 | CASEMGMT ---
AMY ADORNO NOTE: Script obtained for walker [place] [facility] [place]. Anticipate pt will discharge tomorrow. Call placed [place] [facility] and she was made aware. Plan is to have walker faxed 2/ AM prior to discharge. Tamara CERVANTES RN CM
[2019-09-05 16:41] LABS: Bedside Glucose 136 mg/dL (70-110)
[2019-09-05] MEDS: Atorvastatin Calcium 10 MG Tablet PO (20:49)
[2019-09-05] MEDS: Acetaminophen 325 MG Tablet 650 MG PO (20:54)
[2019-09-05] MEDS: Albuterol 2.5 MG/3 ML VIAL.NEB. INHALATION (22:51)
[2019-09-06] VITALS (13 sets, daily range): BP systolic 140–163; BP diastolic 61–78; PULSE 68–85; RESP 18; TEMP 36.6–37.1; O2SAT 94–100
[2019-09-06 00:45] LABS: Bedside Glucose 178 mg/dL (70-110)
[2019-09-06 05:56] LABS: Hematocrit 31.2 % (37-47); Hemoglobin 9.9 g/dL (12.0-15.0); Mean Corp Hgb Conc 31.7 g/dL (32-36); Mean Corpuscular Hgb 26.1 pg (27.0-32.0); Mean Corpuscular Volume 82.1 fL (81-99); Mean Platelet Vol. 10.2 fl (6.2-12.0); Platelet Count 172 K/mm3 (150-450); RBC Distribution Width CV 15.5 % (11.6-14.6); RBC Distribution Width SD 46.5 fl (35.1-43.9); White Blood Count 7.6 K/mm3 (4.4-11.0)
[2019-09-06 06:13] LABS: Anion Gap 6 (5-15); BUN 33 mg/dL (7-18); BUN/Creat Ratio 19.4 RATIO (10-20); Calcium,Total 8.1 mg/dL (8.5-10.1); Chloride 115 mmol/L (98-107); EST Glomerular Filtration Rate 32 mL/min (>60); Est Glom Filt Rate - Afr Amer 38 mL/min (>60); Estimated Creatinine Clearance 23.24 ml/min; Glucose 101 mg/dL (74-106); Potassium 4.2 mmol/L (3.5-5.1); Sodium Level 143 mmol/L (136-145)
--- NOTE | 2019-09-06 07:24 | PCM.PN.HOSP ---
Patient Problems: Active and Suspected Problems (Last Updated 09/04/19 @ 09:25 by Yue Holley) ASHISH (acute kidney injury) (Acute) Chest pain, unspecified (Acute) Reason for Visit: Follow-up chest pain and shortness of breath Subjective: Patient seen did complain of having had a episode .. Went into respiratory distress according to the patient. Patient requested consultation with pulmonary medicine. Objective: GENERAL: cooperative HEENT: Atraumatic; EYES; Anicteric, Normal Conjunctiva NECK; supple, normal thyroid, RESPIRATORY: Diminished to auscultation CARDIOVASCULAR: Regular S1 S2, GI: soft, normoactive bowel sounds, : No Renal angle tenderness; EXTREMITIES: No edema, no clubbing, MUSCULOSKELETAL: no muscle waisting NEURO: Awake; no lateralizing signs. SKIN: No Rash PSYCH; Flat affect Vitals/I&O's: Vital Signs Temp Pulse Resp BP Pulse Ox 98.4 F 72 18 140/61 H 97 09/06/19 03:00 09/06/19 04:00 09/06/19 03:00 09/06/19 03:00 09/06/19 03:00 Oxygen Flow Rate (L/min) 2 Oxygen Delivery Method Room Air Weight: 87 kg Body Mass Index (BMI) 35.0 Intake and Output for Last 24 Hours 09/04/19 09/05/19 09/06/19 23:59 23:59 23:59 Intake Total 2162.92 / 2282.92 1840.00 / 2320.00 600 / 600 Output Total 200 / 400 1425 / 1975 850 / 850 Balance 1962.92 / 1882.92 415.00 / 345.00 -250 / -250 Laboratory Results 09/05/19 08:00: POC Glucose 135 H 09/05/19 11:20: POC Glucose 161 H 09/05/19 16:29: POC Glucose 136 H 09/05/19 20:54: POC Glucose 178 H 09/06/19 05:00: WBC 7.6, RBC 3.80 L, Hgb 9.9 L, Hct 31.2 L, MCV 82.1, MCH 26.1 L, MCHC 31.7 L, RDW Std Deviation 46.5 H, RDW Coeff of Chelsey 15.5 H, Plt Count 172, MPV 10.2 09/06/19 05:00: Sodium 143, Potassium 4.2, Chloride 115 H, Carbon Dioxide 22.0, Anion Gap 6, BUN 33 H, Creatinine 1.70 H, Estim Creat Clear Calc 23.24, Est GFR (MDRD) Af Amer 38 L, Est GFR (MDRD) Non-Af 32 L, BUN/Creatinine Ratio 19.4, Glucose 101, Calcium 8.1 L Current Medications Acetaminophen (Tylenol) 650 mg PO Q6H PRN PRN PRN Reason: Pain Score 1-3/10 Last Admin: 09/05/19 20:54 Dose: 650 mg Documented by: Al Hydroxide/Mg Hydroxide (Mylanta Ii) 30 ml PO Q6H PRN PRN PRN Reason: Gastric Burning Albuterol Sulfate (Ventolin Aerosols) 2.5 mg INHALATION Q2H PRN PRN PRN Reason: DYSPNEA/WHEEZING/SOB Last Admin: 09/05/19 22:51 Dose: 2.5 mg Documented by: Aspirin (Ecotrin) 81 mg PO DAILY@0800 [facility] Last Admin: 09/05/19 07:55 Dose: 81 mg Documented by: Atorvastatin Calcium (Lipitor) 10 mg PO QHS [facility] Last Admin: 09/05/19 20:49 Dose: 10 mg Documented by: Atropine Sulfate () 0.5 mg IV UD PRN PRN Reason: HR <50 bpm Clopidogrel Bisulfate (Plavix) 75 mg PO DAILY [facility] Last Admin: 09/05/19 07:55 Dose: 75 mg Documented by: Glucagon () 1 mg IM .X1 PRN PRN Reason: Hypoglycemia Heparin Sodium (Beef Lung) (Heparin 500 Unit/5 Ml (100/Ml)) 500 unit IV UD PRN PRN Reason: HEPARIN FLUSH Dextrose (Dextrose 10%-Water) 250 mls @ 999 mls/hr IV .Q16M PRN; Protocol PRN Reason: HYPOGLYCEMIA Sodium Chloride () 250 mls @ 15 mls/hr IV .[id number] PRN PRN Reason: Saline Flush Sodium Chloride () 250 mls @ 15 mls/hr IV .[id number] PRN PRN Reason: Additional IVPB Infusion Insulin Glargine (Lantus ([facility])) 11 units SC DAILY [facility] Last Admin: 09/05/19 07:56 Dose: 11 units Documented by: Insulin Human Lispro (Humalog Kwikpen ([facility])) 0 unit SC ACHS [facility]; Protocol Last Admin: 09/05/19 20:54 Dose: 1 u Documented by: Insulin Human Lispro (Humalog Kwikpen (Bk)) [facility] Last Admin: 09/05/19 16:31 Dose: 8 u Documented by: Isosorbide Mononitrate (Imdur) 30 mg PO BID [facility] Last Admin: 09/05/19 20:48 Dose: 30 mg Documented by: Labetalol HCl (Trandate) 200 mg PO BID [facility] Last Admin: 09/05/19 20:49 Dose: 200 mg Documented by: Labetalol HCl (Trandate) 20 mg IV X1 PRN PRN Reason: SBP > 160 when pulling sheath Lorazepam (Ativan) 1 mg PO Q6H PRN PRN PRN Reason: BACK SPASMS/ANXIETY Melatonin (Melatonin) 3 mg PO QHS PRN PRN PRN Reason: INSOMNIA Metoclopramide HCl (Reglan) 5 mg IV Q6H PRN PRN PRN Reason: NAUSEA/VOMITING Nifedipine (Procardia Xl) 60 mg PO DAILY [facility] Last Admin: 09/05/19 07:55 Dose: 60 mg Documented by: Nitroglycerin (Nitrostat) 0.4 mg SUBLINGUAL Q5M PRN PRN Reason: CARDIAC/CHEST PAIN Ondansetron HCl (Zofran) 4 mg IV Q8H PRN PRN PRN Reason: NAUSEA/VOMITING Sodium Chloride () 10 - 40 ml IV UD PRN PRN Reason: SALINE FLUSH Sodium Chloride () 500 ml IV BOLUS PRN PRN Reason: VASO-VAGAL PROTOCOL Tizanidine HCl (Zanaflex) 4 mg PO Q8H PRN PRN Reason: muscle spasms STROKE Vital Signs/Narrative: Vital Signs Pulse 09/06/19 04:00 72 Medical Necessity - Tobacco Use Smoking Status: Former smoker Assessment/Plan All Active Problems (Last Updated 09/04/19 @ 09:10 by Sadie Frazier) ASHISH (acute kidney injury) (Acute) Chest pain, unspecified (Acute) Non-ST elevation (NSTEMI) myocardial infarction (Resolved 06/22/18) ACS (acute coronary syndrome) (Resolved) Acute diastolic (congestive) heart failure (Resolved) Cellulitis of buttock (Resolved) Chest pain (Resolved) Corneal injury (Resolved) Diverticulitis large intestine (Resolved) Hypertensive urgency (Resolved) Muscle cramps (Resolved) Right wrist pain (Resolved) S/P colonoscopy (Resolved) Patient is a 69-year-old lady presented with chest pain 1. Chest pain ?Patient has significant past cardiac history including stent placement to proximal LAD lesion on 06/23/2018. Admitted to monitored bed ordered serial cardiac enzymes. Given patient past significant history consult was placed to cardiology -Patient was seen in consultation by Dr. Calero who did perform left heart catheterization. Patient left heart catheter agency failed to demonstrate any obstructive lesions. -2620; remains chest pain-free 2. Dyspnea ?Patient requested consultation with pulmonary medicine. Do suspect underlying sleep apnea did discuss with patient about the importance of undergoing a sleep study as outpatient 3. Acute kidney injury Suspected to be secondary to contrast-induced nephropathy following patient left heart catheterization. Started on IV fluids with subsequent monitoring of kidney function. Ordered renal duplex and consultation placed to nephrology potential nephrotoxic medications including Lasix and lisinopril discontinued -09/05/2019 Patient kidney function continues to worsen. Ordered renal duplex with consultation placed to nephrology. -09/06/2019 creatinine down to 1.7. Renal ultrasound obtained the day prior demonstrated cortical thinning of the right kidney. 4. Hypertension ~ blood pressure controlled, home medications continued with dose adjustment as needed 5. Diabetes mellitus type II ~Uncontrolled with hyperglycemia did continue with her long acting insulin, Accu-Cheks a.c. and at bedtime and covered with sliding scale insulin 6. Dyslipidemia ~patient is on statin therapy, continued at home dose 7. Chronic diastolic congestive heart failure ?Stable 8. Obesity with BMI of 38.2 ?Weight loss advised 9. Peripheral arterial disease ?With previous left peroneal and proximal left posterior tibial angioplasty and left superficial femoral atherectomy and angioplasty 02/28/19 10. DVT prophylaxis ?Lovenox Code Visit Inpatient E&M: 75571 Subs Hosp L2
[2019-09-06] MEDS: Insulin Lispro 100 UNIT/ML INSULN.PEN 8 UNIT SC ×2 (07:54→17:02)
[2019-09-06] MEDS: Aspirin E.C. 81 MG Tablet PO (07:55)
[2019-09-06] MEDS: Isosorbide Mononitrate 30 MG Tablet PO ×2 (07:55→21:24)
[2019-09-06] MEDS: Labetalol 200 MG Tablet PO ×2 (07:55→21:24)
[2019-09-06] MEDS: NIFEdipine 60 MG Tablet PO (07:56)
[2019-09-06] MEDS: Clopidogrel Bisulfate 75 MG Tablet PO (07:56)
--- NOTE | 2019-09-06 08:16 | PCM.CONS.PUL ---
Reason for Consult Date of Consultation: 09/06/19 Reason for Consultation: Shortness of Breath / ? Sleep Apnea History of Present Illness: The patient is a 69-year-old female, with a history as outlined below, who presented to the emergency department on September 03 with complaints of shortness of breath. The patient does have a previous smoking history of 0.5 packs/day x 20 years. She quit smoking completely in 1998. 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 She does not carry a diagnosis of COPD or asthma. She does report the presence of baseline exertional shortness of breath. The patient does have a known history of coronary artery disease status post PCI in the past. She has underlying heart failure with preserved ejection fraction as well. A CTA chest obtained in the emergency department revealed no evidence for pulmonary embolism. There was incidental note of bilateral emphysematous changes, nevertheless. The patient was subsequently evaluated by cardiology and underwent cardiac catheterization with drug-eluting stent placement to the mid RCA. The patient's hospital course has only been complicated by the development of what is likely contrast induced nephropathy. Nursing staff did report that last evening, the patient did experience periodic oxygen desaturations with sleeping. They also reported the presence of audible snoring. The patient does report that in her home environment, upon awakening in the morning, she does not feel refreshed and restored. She does report the presence of daytime hypersomnolence along with frequent napping. She has never completed a sleep study in the past. [place] Sleepiness Scale 0= would never doze or sleep 1= slight chance of dozing or sleeping 2= moderate chance of dozing or sleeping 3= high chance of dozing or sleeping Sitting and readin Watching TV: 3 Sitting inactive in public place: 0 Being a passenger in a car: 1 Lying down in the afternoon: 3 Sitting and talking to someone: 0 Sitting quietly after lunch: 2 Stopped for a few minutes in traffic: 0 Total Score: 10 ESS Interpretation: 1 to 6 points: Normal Sleep 7 to 8 points: Average Sleepiness 9 to 24 points: Abnormal Sleepiness Past Medical History Past Medical History (Chronic Problems): Chronic Problems (Last Updated 09/04/19 @ 09:25 by Yue Holley) Atherosclerosis of coronary artery of [place] heart without angina pectoris (Chronic) History of coronary artery stent placement (Chronic 02/24/20) [id number] LAD w/ a 3.0 x 38 mm Synergy Stent 06/23/18; PTCA/SIVAN of mid RCA with a 2.25 x 38 Promus Synergy 09/03/2019 Chronic diastolic CHF (congestive heart failure) (Chronic) Peripheral vascular occlusive disease (Chronic) left peroneal and proximal left posterior tibial angioplasty and left superficial femoral atherectomy and angioplasty 02/28/19 Claudication (Chronic) Essential (primary) hypertension (Chronic) Hyperlipidemia (Chronic) Medical History: Medical History (Last Updated 09/04/19 @ 09:25 by Yue Holley) Atherosclerosis of coronary artery of [place] heart without angina pectoris (Chronic) I25.10 Non-ST elevation (NSTEMI) myocardial infarction (Resolved) Onset Date: 06/22/18 I21.4 Chronic diastolic CHF (congestive heart failure) (Chronic) I50.32 Peripheral vascular occlusive disease (Chronic) I73.9 left peroneal and proximal left posterior tibial angioplasty and left superficial femoral atherectomy and angioplasty 02/28/19 Claudication (Chronic) I73.9 Essential (primary) hypertension (Chronic) I10 Hyperlipidemia (Chronic) E78.5 Anxiety F41.9 Back problem M53.9 Chronic kidney disease (CKD) N18.9 Diabetes mellitus, type II E11.9 Hepatitis K75.9 Obesity E66.9 PAD (peripheral artery disease) I73.9 Acute diastolic (congestive) heart failure (Resolved) I50.31 Corneal injury (Resolved) S05.8X9A Diabetes type 2, controlled E11.9 Dx : 1997 Last exacerbation : DKA : never Hypoglycemic episode : never ER visit : never Right wrist pain (Resolved) M25.531 Abnormal ultrasound of lower extremity (Inactive) R93.6 Allergies acetaminophen [From [facility]] Allergy (Verified 09/02/19 23:47) Other hydrocodone [From [facility]] Allergy (Verified 09/02/19 23:47) Other metformin Allergy (Verified 09/02/19 23:47) Unknown Home Medications: Ambulatory Orders Medication Instructions Recorded insulin aspart U-100 100 unit/mL 8 unit SC BIDCM ml 07/26/17 (3 mL) subcutaneous pen Insulin Detemir [Levemir FlexPen] 11 units SQ DAILY 06/22/18 Nitroglycerin (INPATIENT USE) 0.4 mg SUBLINGUAL Q5M PRN 06/22/18 [Nitrostat] Diazepam [Valium] 2.5 - 5 mg PO DAILY PRN PRN 03/26/19 Labetalol HCl 200 mg PO BID 03/26/19 Tizanidine HCl [Zanaflex] 4 mg PO Q8H PRN #10 tab 03/27/19 simvastatin 20 mg tablet 20 mg PO QHS #90 tab 06/12/19 clopidogrel 75 mg tablet 75 mg PO DAILY #90 tab 08/14/19 lisinopril 20 mg tablet 20 mg PO BID 08/22/19 Acyclovir [Zovirax] 1 applic TOPICAL BID 08/31/19 Ciclopirox 1 applic TP QHS 08/31/19 Fluconazole [Diflucan] 150 mg PO PRN PRN 08/31/19 Furosemide [Lasix] 40 mg PO DAILY 08/31/19 Isosorbide Mononitrate [Isosorbide 30 mg PO DAILY 08/31/19 Mononitrate ER] Lidocaine [Lidocaine 5%] 1 patch TOPICAL DAILY 08/31/19 NIFEdipine [Procardia Xl] 60 mg PO DAILY 08/31/19 Neomycin/Polymyxin B/Dexametha 5 ml OP PRN PRN 08/31/19 [Maxitrol Eye Drops] Triamcinolone Acetonide 1 applicatio TP BID 08/31/19 Surgical History: Surgical History (Last Updated 09/04/19 @ 09:10 by Sadie Frazier) History of coronary artery stent placement (Chronic) Onset Date: 09/03/19 Z95.5 DIP-ZHW-Ccam LAD w/ a 3.0 x 38 mm Synergy Stent 06/23/18; PTCA/SIVAN of mid RCA with a 2.25 x 38 Promus Synergy 09/03/2019 History of total abdominal hysterectomy Z98.890, Z90.710 History of angioplasty of peripheral vessel Onset Date: 02/28/19 Z98.62 left peroneal and proximal left posterior tibial angioplasty and left superficial femoral atherectomy and angioplasty 02/28/19 S/P colonoscopy (Resolved) Z98.890 Surgical History: - - Total abdominal hysterectomy, PCI x1, angioplasty left lower extremity, right rotator cuff repair, left knee arthroscopic surgery. 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 Ahsan Jean MD) Mother Arthritis Father Arthritis History Items: Heart Disease Paternal Family History: Family History (Last Reviewed 09/03/19 @ 07:[address] Ahsan Jean MD) Mother Arthritis Father Arthritis History Items: - - Patient denies any market paternal family history including heart disease, diabetes or cancer. Review of Systems Constitutional: Denies: Chills, Fever, Weight Change HEENT: Denies: Head Aches, Sinus Congestion, Sinus Drainage Cardiovascular: Reports: Chest Pain Respiratory: Reports: Shortness of Breath. Denies: Cough Gastrointestinal: Denies: Abdominal Pain, Nausea, Vomiting Genitourinary: Denies: Dysuria Musculoskeletal: Denies: Joint Pain, Joint Tenderness Skin: Denies: Rash, Wounds Neurological: Denies: Numbness, Tingling, Focal weakness Psychiatric: Reports: Anxiety Hematologic/ Lymphatic: Reports: Adenopathy Patient Problems: Active and Suspected Problems (Last Updated 09/04/19 @ 09:25 by Yue Holley) ASHISH (acute kidney injury) (Acute) Chest pain, unspecified (Acute) Objective: The patient's most recent lab work, culture data and imaging studies have all been personally reviewed. - Physical Exam Vitals/I&O's: Vital Signs Temp Pulse Resp BP Pulse Ox 98.4 F 72 18 140/61 H 97 09/06/19 03:00 09/06/19 04:00 09/06/19 03:00 09/06/19 03:00 09/06/19 03:00 Oxygen Flow Rate (L/min) 2 Oxygen Delivery Method Room Air Weight: 191 lb 12.835 oz Body Mass Index (BMI) 35.0 Intake and Output for Last 24 Hours 09/04/19 09/05/19 09/06/19 23:59 23:59 23:59 Intake Total 2162.92 / 2282.92 1840.00 / 2320.00 600 / 600 Output Total 200 / 400 1425 / 1975 850 / 850 Balance 1962.92 / 1882.92 415.00 / 345.00 -250 / -250 General: Alert, Oriented x3, Cooperative, No apparent distress, - - Sitting in bedside recliner HEENT: Atraumatic, PERRLA, Normocephalic Oral: No Gingival or Mucosal Lesions/ Ulcerations Neck: Supple, No Nodes, Trachea Midline Lungs: No rhonchi, No wheeze, No rales, Diminished Cardiovascular: Regular rate, Regular Rhythm, Normal S1, Normal S2 Abdomen: Bowel Sounds Present, Soft, Non Tender, Obese Extremities: No clubbing, No cyanosis, No edema Skin: No breakdown Musculoskeletal: No Tenderness to Palpation of Joints or Extremities Lymphatic: No Cervical, Supraclavicular, or Inguinal Adenopathy Neurological: Cranial nerves II-XII grossly intact, Neuro grossly intact Psych/Mental Status: Alert and oriented to time, place, person, mood and affect Labs (Last 48 Hours) 09/04/19 09/04/19 09/04/19 13:18 14:10 16:16 WBC RBC Hgb Hct MCV MCH MCHC RDW Std Deviation RDW Coeff of Chelsey Plt Count MPV Sodium 141 Potassium 4.4 Chloride 111 H Carbon Dioxide 24.0 Anion Gap 6 BUN 33 H Creatinine 1.94 H Estim Creat Clear Calc 20.36 Est GFR (MDRD) Af Amer 33 L Est GFR (MDRD) Non-Af 27 L BUN/Creatinine Ratio 17.0 Glucose 171 H Calcium 8.5 Magnesium POC Glucose 138 H 177 H 09/04/19 09/05/19 09/05/19 20:38 04:10 04:10 WBC 8.8 RBC 3.76 L Hgb 9.7 L Hct 31.1 L MCV 82.7 MCH 25.8 L MCHC 31.2 L RDW Std Deviation 46.8 H RDW Coeff of Chelsey 15.5 H Plt Count 181 MPV 11.0 Sodium 143 Potassium 3.9 Chloride 115 H Carbon Dioxide 22.0 Anion Gap 6 BUN 35 H Creatinine 1.90 H Estim Creat Clear Calc 20.79 Est GFR (MDRD) Af Amer 34 L Est GFR (MDRD) Non-Af 28 L BUN/Creatinine Ratio 18.4 Glucose 119 H Calcium 7.8 L Magnesium 1.9 POC Glucose 162 H 09/05/19 09/05/19 09/05/19 08:00 11:20 16:29 WBC RBC Hgb Hct MCV MCH MCHC RDW Std Deviation RDW Coeff of Chelsey Plt Count MPV Sodium Potassium Chloride Carbon Dioxide Anion Gap BUN Creatinine Estim Creat Clear Calc Est GFR (MDRD) Af Amer Est GFR (MDRD) Non-Af BUN/Creatinine Ratio Glucose Calcium Magnesium POC Glucose 135 H 161 H 136 H 09/05/19 09/06/19 09/06/19 20:54 05:00 05:00 WBC 7.6 RBC 3.80 L Hgb 9.9 L Hct 31.2 L MCV 82.1 MCH 26.1 L MCHC 31.7 L RDW Std Deviation 46.5 H RDW Coeff of Chelsey 15.5 H Plt Count 172 MPV 10.2 Sodium 143 Potassium 4.2 Chloride 115 H Carbon Dioxide 22.0 Anion Gap 6 BUN 33 H Creatinine 1.70 H Estim Creat Clear Calc 23.24 Est GFR (MDRD) Af Amer 38 L Est GFR (MDRD) Non-Af 32 L BUN/Creatinine Ratio 19.4 Glucose 101 Calcium 8.1 L Magnesium POC Glucose 178 H Clinical Impression(s) from Imaging Studies Chest X-Ray 09/03/19 00:06 IMPRESSION: Stable cardiomegaly. Electronically Signed: Irwin Carter MD at 0:47 EST , Service support , Chest CTA 09/03/19 03:15 IMPRESSION: No pulmonary embolus or thoracic aortic dissection. New small bilateral pleural effusions. Mild cardiomegaly. Coronary artery calcifications. Minimal pericardial effusion unchanged. Emphysematous changes. Nodules left lobe of the thyroid gland which can be correlated with nonemergent ultrasound. Electronically Signed: Irwin Carter MD at 5:07 EST , Service support , Renal Ultrasound 09/04/19 15:21 IMPRESSION: Cortical thinning of the right kidney. Electronically Signed: Aron West DO at 21:28 EST Tel [phone], Service support , Current Medications Acetaminophen (Tylenol) 650 mg PO Q6H PRN PRN PRN Reason: Pain Score 1-3/10 Last Admin: 09/05/19 20:54 Dose: 650 mg Documented by: Al Hydroxide/Mg Hydroxide (Mylanta Ii) 30 ml PO Q6H PRN PRN PRN Reason: Gastric Burning Albuterol Sulfate (Ventolin Aerosols) 2.5 mg INHALATION Q2H PRN PRN PRN Reason: DYSPNEA/WHEEZING/SOB Last Admin: 09/05/19 22:51 Dose: 2.5 mg Documented by: Aspirin (Ecotrin) 81 mg PO DAILY@0800 [facility] Last Admin: 09/06/19 07:55 Dose: 81 mg Documented by: Atorvastatin Calcium (Lipitor) 10 mg PO QHS [facility] Last Admin: 09/05/19 20:49 Dose: 10 mg Documented by: Atropine Sulfate () 0.5 mg IV UD PRN PRN Reason: HR <50 bpm Clopidogrel Bisulfate (Plavix) 75 mg PO DAILY [facility] Last Admin: 09/06/19 07:56 Dose: 75 mg Documented by: Glucagon () 1 mg IM .X1 PRN PRN Reason: Hypoglycemia Heparin Sodium (Beef Lung) (Heparin 500 Unit/5 Ml (100/Ml)) 500 unit IV UD PRN PRN Reason: HEPARIN FLUSH Dextrose (Dextrose 10%-Water) 250 mls @ 999 mls/hr IV .Q16M PRN; Protocol PRN Reason: HYPOGLYCEMIA Sodium Chloride () 250 mls @ 15 mls/hr IV .[id number] PRN PRN Reason: Saline Flush Sodium Chloride () 250 mls @ 15 mls/hr IV .[id number] PRN PRN Reason: Additional IVPB Infusion Insulin Glargine (Lantus (Bkc)) 11 units SC DAILY [facility] Last Admin: 09/06/19 07:56 Dose: 11 units Documented by: Insulin Human Lispro (Humalog Kwikpen (Bkc)) 0 unit SC ACHS [facility]; Protocol Last Admin: 09/05/19 20:54 Dose: 1 u Documented by: Insulin Human Lispro (Humalog Kwikpen (Bkc)) 8 unit SC BIDCM [facility] Last Admin: 09/06/19 07:54 Dose: 8 u Documented by: Isosorbide Mononitrate (Imdur) 30 mg PO BID [facility] Last Admin: 09/06/19 07:55 Dose: 30 mg Documented by: Labetalol HCl (Trandate) 200 mg PO BID [facility] Last Admin: 09/06/19 07:55 Dose: 200 mg Documented by: Labetalol HCl (Trandate) 20 mg IV X1 PRN PRN Reason: SBP > 160 when pulling sheath Lorazepam (Ativan) 1 mg PO Q6H PRN PRN PRN Reason: BACK SPASMS/ANXIETY Melatonin (Melatonin) 3 mg PO QHS PRN PRN PRN Reason: INSOMNIA Metoclopramide HCl (Reglan) 5 mg IV Q6H PRN PRN PRN Reason: NAUSEA/VOMITING Nifedipine (Procardia Xl) 60 mg PO DAILY [facility] Last Admin: 09/06/19 07:56 Dose: 60 mg Documented by: Nitroglycerin (Nitrostat) 0.4 mg SUBLINGUAL Q5M PRN PRN Reason: CARDIAC/CHEST PAIN Ondansetron HCl (Zofran) 4 mg IV Q8H PRN PRN PRN Reason: NAUSEA/VOMITING Sodium Chloride () 10 - 40 ml IV UD PRN PRN Reason: SALINE FLUSH Sodium Chloride () 500 ml IV BOLUS PRN PRN Reason: VASO-VAGAL PROTOCOL Tizanidine HCl (Zanaflex) 4 mg PO Q8H PRN PRN Reason: muscle spasms Assessment/Plan All Active Problems (Last Updated 09/04/19 @ 09:10 by Sadie Frazier) ASHISH (acute kidney injury) (Acute) Chest pain, unspecified (Acute) Non-ST elevation (NSTEMI) myocardial infarction (Resolved 06/22/18) ACS (acute coronary syndrome) (Resolved) Acute diastolic (congestive) heart failure (Resolved) Cellulitis of buttock (Resolved) Chest pain (Resolved) Corneal injury (Resolved) Diverticulitis large intestine (Resolved) Hypertensive urgency (Resolved) Muscle cramps (Resolved) Right wrist pain (Resolved) S/P colonoscopy (Resolved) RECOMMENDATIONS: 1. Upon discharge from the hospital, please send the patient home with a prescription for albuterol metered-dose inhaler 2 belies every 4 hours as needed. 2. The patient is currently scheduled to follow-up in the pulmonary medicine clinic on TuesdaySeptember 20 @ 12:45. 3. Upon follow-up in the pulmonary medicine clinic will place orders to obtain baseline pulmonary function studies along with a diagnostic polysomnogram to evaluate for the presence of sleep apnea. 4. Given the patient's lack of active pulmonary or ICU needs, will sign off at this time. Please call with any additional questions. IMPRESSIONS: 1. Shortness of breath Likely cardiac in etiology. However, given the patient's prior smoking history, I cannot discount the possibility of an underlying pulmonary etiology. The patient does have some emphysematous changes noted on CT chest. At this time, I would recommend that she follow-up in the pulmonary medicine clinic upon discharge from the hospital. At that time, we will obtain baseline pulmonary function studies. In addition to the aforementioned, I would recommend that the patient be discharged home with an albuterol metered-dose inhaler to be utilized every 4 hours as needed for shortness of breath. 2. Concern for sleep apnea Nursing staff reported periodic oxygen desaturations overnight along with audible snoring. The patient has an elevated [place] sleepiness score and endorses nonrestorative sleep and daytime hypersomnolence. Therefore, upon follow-up in the pulmonary medicine clinic will obtain a dedicated polysomnogram to evaluate for the presence of sleep disordered breathing. The patient is in agreement with this plan. 3. Coronary artery disease The patient did undergo successful drug-eluting stent placement to RCA during this hospitalization. Continue current medical recommendations per cardiology. 4. Acute kidney injury, likely contrast induced nephropathy Continue current supportive measures per nephrology recommendations. This note was generated with [employer]ive[employer] software. It may contain incorrect words, spelling, and punctuation that were not noted in checking the note before signing. Code Visit Inpatient E&M: 25481 Init Hosp L3
--- NOTE | 2019-09-06 10:00 | EKG12_ITS ---
Test Reason : AM EKG Blood Pressure : / mmHG Vent. Rate : 078 BPM Atrial Rate : 078 BPM P-R Int : 186 ms QRS Dur : 080 ms QT Int : 410 ms P-R-T Axes : 051 -16 090 degrees QTc Int : 467 ms Normal sinus rhythm Nonspecific T wave abnormality Abnormal ECG Confirmed by JR GUADALUPE, SANTOS ([id number]), book editor ELLIOT COLÓN ([id number]) on 09/12/2019 1:55:39 PM Referred By: MATHIEU Confirmed By:SANTOS NORRIS MD
[2019-09-06 11:30] LABS: Bedside Glucose 109 mg/dL (70-110)
[2019-09-06] MEDS: Insulin Lispro 100 UNIT/ML INSULN.PEN SC (11:30)
[2019-09-06 11:56] LABS: Bedside Glucose 163 mg/dL (70-110)
--- NOTE | 2019-09-06 13:03 | PN.RENAL_ITS ---
Patient Problems: Active and Suspected Problems (Last Updated 09/04/19 @ 09:25 by Yue Holley) ASHISH (acute kidney injury) (Acute) Chest pain, unspecified (Acute) Subjective: No new complaints - Physical Exam Vitals/I&O's: Vital Signs Temp Pulse Resp BP Pulse Ox 97.8 F 74 18 151/71 H 97 09/06/19 09:00 09/06/19 10:59 09/06/19 09:00 09/06/19 09:00 09/06/19 09:00 Oxygen Flow Rate (L/min) 2 Oxygen Delivery Method Room Air Weight: 87 kg Body Mass Index (BMI) 35.0 Intake and Output for Last 24 Hours 09/04/19 09/05/19 09/06/19 23:59 23:59 23:59 Intake Total 2162.92 / 2282.92 1840.00 / 2320.00 600 / 600 Output Total 200 / 400 1425 / 1975 850 / 850 Balance 1962.92 / 1882.92 415.00 / 345.00 -250 / -250 General: Alert, Oriented x3, Cooperative HEENT: Atraumatic, PERRLA, EOMI, Normocephalic Neck: Supple, No JVD, Negative Carotid Bruits Lungs: Clear to auscultation, Normal air movement Cardiovascular: Regular rate, No murmurs Abdomen: Bowel Sounds Present, Soft, Non Tender Extremities: No edema, Capillary Refill Less than 3 Seconds Skin: No rashes, No breakdown Musculoskeletal: No Tenderness to Palpation of Joints or Extremities Neurological: Cranial nerves II-XII grossly intact Psych/Mental Status: Normal Affect, Appropriate Laboratory Results 09/05/19 16:29: POC Glucose 136 H 09/05/19 20:54: POC Glucose 178 H 09/06/19 05:00: WBC 7.6, RBC 3.80 L, Hgb 9.9 L, Hct 31.2 L, MCV 82.1, MCH 26.1 L , MCHC 31.7 L, RDW Std Deviation 46.5 H, RDW Coeff of Chelsey 15.5 H, Plt Count 172, MPV 10.2 09/06/19 05:00: Sodium 143, Potassium 4.2, Chloride 115 H, Carbon Dioxide 22.0, Anion Gap 6, BUN 33 H, Creatinine 1.70 H, Estim Creat Clear Calc 23.24, Est GFR (MDRD) Af Amer 38 L, Est GFR (MDRD) Non-Af 32 L, BUN/Creatinine Ratio 19.4, Glucose 101, Calcium 8.1 L 09/06/19 07:52: POC Glucose 109 09/06/19 11:29: POC Glucose 163 H Current Medications Acetaminophen (Tylenol) 650 mg PO Q6H PRN PRN PRN Reason: Pain Score 1-3/10 Last Admin: 09/05/19 20:54 Dose: 650 mg Documented by: Al Hydroxide/Mg Hydroxide (Mylanta Ii) 30 ml PO Q6H PRN PRN PRN Reason: Gastric Burning Albuterol Sulfate (Ventolin Aerosols) 2.5 mg INHALATION Q2H PRN PRN PRN Reason: DYSPNEA/WHEEZING/SOB Last Admin: 09/05/19 22:51 Dose: 2.5 mg Documented by: Aspirin (Ecotrin) 81 mg PO DAILY@0800 [facility] Last Admin: 09/06/19 07:55 Dose: 81 mg Documented by: Atorvastatin Calcium (Lipitor) 10 mg PO QHS [facility] Last Admin: 09/05/19 20:49 Dose: 10 mg Documented by: Atropine Sulfate () 0.5 mg IV UD PRN PRN Reason: HR <50 bpm Clopidogrel Bisulfate (Plavix) 75 mg PO DAILY [facility] Last Admin: 09/06/19 07:56 Dose: 75 mg Documented by: Glucagon () 1 mg IM .X1 PRN PRN Reason: Hypoglycemia Heparin Sodium (Beef Lung) (Heparin 500 Unit/5 Ml (100/Ml)) 500 unit IV UD PRN PRN Reason: HEPARIN FLUSH Dextrose (Dextrose 10%-Water) 250 mls @ 999 mls/hr IV .Q16M PRN; Protocol PRN Reason: HYPOGLYCEMIA Sodium Chloride () 250 mls @ 15 mls/hr IV .[id number] PRN PRN Reason: Saline Flush Sodium Chloride () 250 mls @ 15 mls/hr IV .[id number] PRN PRN Reason: Additional IVPB Infusion Insulin Glargine (Lantus ([facility])) 11 units SC DAILY [facility] Last Admin: 09/06/19 07:56 Dose: 11 units Documented by: Insulin Human Lispro (Humalog Kwikpen ([facility])) 0 unit SC ACHS [facility]; Protocol Last Admin: 09/06/19 11:30 Dose: 1 u Documented by: Insulin Human Lispro (Humalog Kwikpen (Bkc)) [facility] Last Admin: 09/06/19 07:54 Dose: 8 u Documented by: Isosorbide Mononitrate (Imdur) 30 mg PO BID [facility] Last Admin: 09/06/19 07:55 Dose: 30 mg Documented by: Labetalol HCl (Trandate) 200 mg PO BID [facility] Last Admin: 09/06/19 07:55 Dose: 200 mg Documented by: Labetalol HCl (Trandate) 20 mg IV X1 PRN PRN Reason: SBP > 160 when pulling sheath Lorazepam (Ativan) 1 mg PO Q6H PRN PRN PRN Reason: BACK SPASMS/ANXIETY Melatonin (Melatonin) 3 mg PO QHS PRN PRN PRN Reason: INSOMNIA Metoclopramide HCl (Reglan) 5 mg IV Q6H PRN PRN PRN Reason: NAUSEA/VOMITING Nifedipine (Procardia Xl) 60 mg PO DAILY [facility] Last Admin: 09/06/19 07:56 Dose: 60 mg Documented by: Nitroglycerin (Nitrostat) 0.4 mg SUBLINGUAL Q5M PRN PRN Reason: CARDIAC/CHEST PAIN Ondansetron HCl (Zofran) 4 mg IV Q8H PRN PRN PRN Reason: NAUSEA/VOMITING Sodium Chloride () 10 - 40 ml IV UD PRN PRN Reason: SALINE FLUSH Sodium Chloride () 500 ml IV BOLUS PRN PRN Reason: VASO-VAGAL PROTOCOL Tizanidine HCl (Zanaflex) 4 mg PO Q8H PRN PRN Reason: muscle spasms Medical Necessity - Tobacco Use Smoking Status: Former smoker Assessment/Plan All Active Problems (Last Updated 09/04/19 @ 09:10 by Sadie Frazier) ASHISH (acute kidney injury) (Acute) Chest pain, unspecified (Acute) Non-ST elevation (NSTEMI) myocardial infarction (Resolved 06/22/18) ACS (acute coronary syndrome) (Resolved) Acute diastolic (congestive) heart failure (Resolved) Cellulitis of buttock (Resolved) Chest pain (Resolved) Corneal injury (Resolved) Diverticulitis large intestine (Resolved) Hypertensive urgency (Resolved) Muscle cramps (Resolved) Right wrist pain (Resolved) S/P colonoscopy (Resolved) ASHISH. baseline creatinine is 1.1 on admission. no prior kidney disease. received CTA and PCI. as per records in total 470 cc of contrast. most likely RASHARD. Creatinine today is better. Urine output has improved. Clinically looks euvolemic. IV fluids have been discontinued. No need for diuretics today. Hopefully renal function will improve.
[2019-09-06 17:11] LABS: Bedside Glucose 104 mg/dL (70-110)
[2019-09-06] MEDS: Acetaminophen 325 MG Tablet 650 MG PO (20:19)
[2019-09-06] MEDS: Atorvastatin Calcium 10 MG Tablet PO (21:27)
[2019-09-07] VITALS (7 sets, daily range): BP systolic 141–161; BP diastolic 61–98; PULSE 71–83; RESP 18–20; TEMP 36.4–37; O2SAT 91–99
[2019-09-07 02:20] LABS: Bedside Glucose 95 mg/dL (70-110)
[2019-09-07 07:56] LABS: Hematocrit 31.6 % (37-47); Hemoglobin 9.8 g/dL (12.0-15.0); Mean Corpuscular Hgb 25.9 pg (27.0-32.0); Mean Corpuscular Volume 83.4 fL (81-99); Mean Platelet Vol. 9.9 fl (6.2-12.0); Platelet Count 179 K/mm3 (150-450); RBC Distribution Width CV 15.7 % (11.6-14.6); RBC Distribution Width SD 47.2 fl (35.1-43.9); Red Blood Count 3.79 M/mm3 (4.2-5.4); White Blood Count 7.4 K/mm3 (4.4-11.0)
[2019-09-07 08:10] LABS: Anion Gap 3 (5-15); BUN 27 mg/dL (7-18); Calcium,Total 8.6 mg/dL (8.5-10.1); Chloride 116 mmol/L (98-107); Creatinine, Serum 1.59 mg/dL (0.55-1.02); EST Glomerular Filtration Rate 34 mL/min (>60); Est Glom Filt Rate - Afr Amer 41 mL/min (>60); Estimated Creatinine Clearance 24.84 ml/min; Glucose 102 mg/dL (74-106); Potassium 4.4 mmol/L (3.5-5.1); Sodium Level 144 mmol/L (136-145)
[2019-09-07] MEDS: Isosorbide Mononitrate 30 MG Tablet PO (08:58)
[2019-09-07] MEDS: NIFEdipine 60 MG Tablet PO (08:58)
[2019-09-07] MEDS: Clopidogrel Bisulfate 75 MG Tablet PO (08:59)
[2019-09-07] MEDS: Aspirin E.C. 81 MG Tablet PO (08:59)
[2019-09-07] MEDS: Labetalol 200 MG Tablet PO (08:59)
[2019-09-07 09:45] LABS: Bedside Glucose 115 mg/dL (70-110)
--- NOTE | 2019-09-07 11:23 | PCM.DC ---
- Discharge Diagnoses Current Active Problems: Current Active and Chronic Problems (Last Updated 09/04/19 @ 09:25 by Yue Holley) ASIHSH (acute kidney injury) (Acute) Chest pain, unspecified (Acute) You will use the following diet at home:: Calorie/Carbohydrate Controlled (specify 1200, 1400, etc) - 1800 Your food should be the consistency of: Regular Discharge Activity: Return to Normal Activity Allergies/Adverse Reactions: Allergies acetaminophen [From [place]] Allergy (Verified 09/02/19 23:47) Other hydrocodone [From [place]] Allergy (Verified 09/02/19 23:47) Other metformin Allergy (Verified 09/02/19 23:47) Unknown Medications to take at Discharge insulin aspart U-100 100 unit/mL (3 mL) subcutaneous pen 8 unit SC BIDCM ml 07/26/17 Insulin Detemir [Levemir FlexPen] 11 units SQ DAILY 06/22/18 Nitroglycerin (INPATIENT USE) [Nitrostat] 0.4 mg SUBLINGUAL Q5M PRN 06/22/18 Diazepam [Valium] 2.5 - 5 mg PO DAILY PRN PRN 03/26/19 Labetalol HCl 200 mg PO BID 03/26/19 Tizanidine HCl [Zanaflex] 4 mg PO Q8H PRN #10 tab 03/27/19 simvastatin 20 mg tablet 20 mg PO QHS #90 tab 06/12/19 clopidogrel 75 mg tablet 75 mg PO DAILY #90 tab 08/14/19 Acyclovir [Zovirax] 1 applic TOPICAL BID 08/31/19 Ciclopirox 1 applic TP QHS 08/31/19 Fluconazole [Diflucan] 150 mg PO PRN PRN 08/31/19 Isosorbide Mononitrate [Isosorbide Mononitrate ER] 30 mg PO DAILY 08/31/19 Lidocaine [Lidocaine 5%] 1 patch TOPICAL DAILY 08/31/19 NIFEdipine [Procardia Xl] 60 mg PO DAILY 08/31/19 Neomycin/Polymyxin B/Dexametha [Maxitrol Eye Drops] 5 ml OP PRN PRN 08/31/19 Triamcinolone Acetonide 1 applicatio TP BID 08/31/19 Albuterol IH (ProAir) [Proair Hfa] 2 puff INHALATION Q4H PRN PRN #1 inhaler 09/07/19 Isosorbide Mononitrate [Imdur] 30 mg PO BID #120 tab 09/07/19 The following prescriptions were given: Isosorbide Mononitrate [Imdur] 30 mg PO BID #120 tab Transmission Status: Pending to [facility] Albuterol IH (ProAir) [Proair Hfa] 2 puff INHALATION Q4H PRN PRN #1 inhaler PRN Reason: Dyspnea/Wheezing/Sob Transmission Status: Pending to [facility] Orders to be completed after discharge: Phase II, Outpatient Cardiac Rehab Location: None Selected Primary Care Physician: Annette Mckinley MD [Primary Care Provider] - Please follow up with your Primary Care Physician in: in 3-5 days Test Results: Test results from this visit will be discussed in further detail at your follow-up appointment, if applicable. Please Follow Up With: Carlos Adamson DO When: in 2-3 weeks Please Follow Up With: Aroldo Urrutia MD When: in 1-2 weeks for follow up of kidney function Proposed Discharge Date: 09/07/19
--- NOTE | 2019-09-07 11:25 | PCM.DC.SUM ---
Discharge Date and Diagnosis - Problem List Patient Problems: Active and Suspected Problems (Last Updated 09/04/19 @ 09:25 by Yue Holley) ASHISH (acute kidney injury) (Acute) Chest pain, unspecified (Acute) Date of Admission: 09/03/19 Date of Discharge: 09/07/19 - Primary Discharge Diagnosis Active and Suspected Problems (Last Updated 09/04/19 @ 09:25 by Yue Holley) ASHISH (acute kidney injury) (Acute) Chest pain, unspecified (Acute) - Secondary Discharge Diagnosis Chronic Problems (Last Updated 09/04/19 @ 09:25 by Yue Holley) Atherosclerosis of coronary artery of [place] heart without angina pectoris (Chronic) History of coronary artery stent placement (Chronic 09/03/19) XVT-LSP-Naus LAD w/ a 3.0 x 38 mm Synergy Stent 06/23/18; PTCA/SIVAN of mid RCA with a 2.25 x 38 Promus Synergy 09/03/2019 Chronic diastolic CHF (congestive heart failure) (Chronic) Peripheral vascular occlusive disease (Chronic) left peroneal and proximal left posterior tibial angioplasty and left superficial femoral atherectomy and angioplasty 02/28/19 Claudication (Chronic) Essential (primary) hypertension (Chronic) Hyperlipidemia (Chronic) Hospital Course and Treatment Imaging Results: Clinical Impression(s) from Imaging Studies Chest X-Ray 09/03/19 00:06 IMPRESSION: Stable cardiomegaly. Electronically Signed: Irwin Carter MD at 0:47 EST , Service support , Chest CTA 09/03/19 03:15 IMPRESSION: No pulmonary embolus or thoracic aortic dissection. New small bilateral pleural effusions. Mild cardiomegaly. Coronary artery calcifications. Minimal pericardial effusion unchanged. Emphysematous changes. Nodules left lobe of the thyroid gland which can be correlated with nonemergent ultrasound. Electronically Signed: Irwin Carter MD at 5:07 EST , Service support , Renal Ultrasound 09/04/19 15:21 IMPRESSION: Cortical thinning of the right kidney. Electronically Signed: Aron West DO at 21:28 EST Tel [phone], Service support , Operations: None Summary of Care Provided: 1. Chest pain ?Patient has significant past cardiac history including stent placement to proximal LAD lesion on 06/23/2018. Admitted to monitored bed ordered serial cardiac enzymes. Given patient past significant history consult was placed to cardiology -Patient was seen in consultation by Dr. Calero who did perform left heart catheterization. Patient left heart catheter agency failed to demonstrate any obstructive lesions. - 09/05/2019; remains chest pain-free 2. Dyspnea ?Patient requested consultation with pulmonary medicine. Do suspect underlying sleep apnea did discuss with patient about the importance of undergoing a sleep study as outpatient -09/06/2019: Patient seen her breathing remarkably improved. Plan is for patient to be discharged home with follow-up with pulmonary medicine and for possible sleep study as outpatient 3. Acute kidney injury Suspected to be secondary to contrast-induced nephropathy following patient left heart catheterization. Started on IV fluids with subsequent monitoring of kidney function. Ordered renal duplex and consultation placed to nephrology potential nephrotoxic medications including Lasix and lisinopril discontinued -09/05/2019 Patient kidney function continues to worsen. Ordered renal duplex with consultation placed to nephrology. -09/06/2019 creatinine down to 1.7. Renal ultrasound obtained the day prior demonstrated cortical thinning of the right kidney. 09/06/2019; kidney function continues to improve. Patient to follow-up with Dr. Katie Sanchez for repeat labs and subsequent management 4. Hypertension ~ blood pressure controlled, home medications continued with dose adjustment as needed 5. Diabetes mellitus type II ~Uncontrolled with hyperglycemia did continue with her long acting insulin, Accu-Cheks a.c. and at bedtime and covered with sliding scale insulin 6. Dyslipidemia ~patient is on statin therapy, continued at home dose 7. Chronic diastolic congestive heart failure ?Stable 8. Obesity with BMI of 38.2 ?Weight loss advised 9. Peripheral arterial disease ?With previous left peroneal and proximal left posterior tibial angioplasty and left superficial femoral atherectomy and angioplasty 02/28/19 10. DVT prophylaxis ?Lovenox Patient Problems: Active and Suspected Problems (Last Updated 09/04/19 @ 09:25 by Yue Holley) ASHISH (acute kidney injury) (Acute) Chest pain, unspecified (Acute) Objective: GENERAL: cooperative HEENT: Atraumatic; EYES; Anicteric, Normal Conjunctiva NECK; supple, normal thyroid, RESPIRATORY: Diminished to auscultation CARDIOVASCULAR: Regular S1 S2, GI: soft, normoactive bowel sounds, : No Renal angle tenderness; EXTREMITIES: No edema, no clubbing, MUSCULOSKELETAL: no muscle waisting NEURO: Awake; no lateralizing signs. SKIN: No Rash PSYCH; Flat affect - Physical Exam Vitals/I&O's: Vital Signs Temp Pulse Resp BP Pulse Ox 98.6 F 80 20 H 155/78 H 98 09/07/19 08:50 09/07/19 08:50 09/07/19 08:50 09/07/19 08:50 09/07/19 08:50 Oxygen Flow Rate (L/min) 2 Oxygen Delivery Method Room Air Weight: 88.7 kg Body Mass Index (BMI) 35.0 Intake and Output for Last 24 Hours 09/05/19 09/06/19 09/07/19 23:59 23:59 23:59 Intake Total 1840.00 / 2320.00 700 / 700 100 / 100 Output Total 1425 / 1975 850 / 850 Balance 415.00 / 345.00 -150 / -150 100 / 100 Laboratory Results 09/06/19 07:52: POC Glucose 109 09/06/19 11:29: POC Glucose 163 H 09/06/19 16:57: POC Glucose 104 09/07/19 01:55: POC Glucose 95 09/07/19 07:45: WBC 7.4, RBC 3.79 L, Hgb 9.8 L, Hct 31.6 L, MCV 83.4, MCH 25.9 L, MCHC 31.0 L, RDW Std Deviation 47.2 H, RDW Coeff of Chelsey 15.7 H, Plt Count 179, MPV 9.9 09/07/19 07:45: Sodium 144, Potassium 4.4, Chloride 116 H, Carbon Dioxide 25.0, Anion Gap 3 L, BUN 27 H, Creatinine 1.59 H, Estim Creat Clear Calc 24.84, Est GFR (MDRD) Af Amer 41 L, Est GFR (MDRD) Non-Af 34 L, BUN/Creatinine Ratio 17.0, Glucose 102, Calcium 8.6 09/07/19 08:47: POC Glucose 115 H Current Medications Acetaminophen (Tylenol) 650 mg PO Q6H PRN PRN PRN Reason: Pain Score 1-3/10 Last Admin: 09/06/19 20:19 Dose: 650 mg Documented by: Al Hydroxide/Mg Hydroxide (Mylanta Ii) 30 ml PO Q6H PRN PRN PRN Reason: Gastric Burning Albuterol Sulfate (Ventolin Aerosols) 2.5 mg INHALATION Q2H PRN PRN PRN Reason: DYSPNEA/WHEEZING/SOB Last Admin: 09/05/19 22:51 Dose: 2.5 mg Documented by: Aspirin (Ecotrin) 81 mg PO DAILY@0800 [facility] Last Admin: 09/07/19 08:59 Dose: 81 mg Documented by: Atorvastatin Calcium (Lipitor) 10 mg PO QHS [facility] Last Admin: 09/06/19 21:27 Dose: 10 mg Documented by: Atropine Sulfate () 0.5 mg IV UD PRN PRN Reason: HR <50 bpm Clopidogrel Bisulfate (Plavix) 75 mg PO DAILY [facility] Last Admin: 09/07/19 08:59 Dose: 75 mg Documented by: Glucagon () 1 mg IM .X1 PRN PRN Reason: Hypoglycemia Heparin Sodium (Beef Lung) (Heparin 500 Unit/5 Ml (100/Ml)) 500 unit IV UD PRN PRN Reason: HEPARIN FLUSH Dextrose (Dextrose 10%-Water) 250 mls @ 999 mls/hr IV .Q16M PRN; Protocol PRN Reason: HYPOGLYCEMIA Sodium Chloride () 250 mls @ 15 mls/hr IV .[id number] PRN PRN Reason: Saline Flush Sodium Chloride () 250 mls @ 15 mls/hr IV .[id number] PRN PRN Reason: Additional IVPB Infusion Insulin Glargine (Lantus (Bkc)) 11 units SC DAILY [facility] Last Admin: 09/07/19 08:59 Dose: 11 units Documented by: Insulin Human Lispro (Humalog Kwikpen (Bkc)) 0 unit SC ACHS [facility]; Protocol Last Admin: 09/07/19 08:56 Dose: Not Given Documented by: Insulin Human Lispro (Humalog Kwikpen (Bkc)) 8 unit SC BIDCM [facility] Last Admin: 09/07/19 08:57 Dose: Not Given Documented by: Isosorbide Mononitrate (Imdur) 30 mg PO BID [facility] Last Admin: 09/07/19 08:58 Dose: 30 mg Documented by: Labetalol HCl (Trandate) 200 mg PO BID [facility] Last Admin: 09/07/19 08:59 Dose: 200 mg Documented by: Labetalol HCl (Trandate) 20 mg IV X1 PRN PRN Reason: SBP > 160 when pulling sheath Lorazepam (Ativan) 1 mg PO Q6H PRN PRN PRN Reason: BACK SPASMS/ANXIETY Melatonin (Melatonin) 3 mg PO QHS PRN PRN PRN Reason: INSOMNIA Metoclopramide HCl (Reglan) 5 mg IV Q6H PRN PRN PRN Reason: NAUSEA/VOMITING Nifedipine (Procardia Xl) 60 mg PO DAILY [facility] Last Admin: 09/07/19 08:58 Dose: 60 mg Documented by: Nitroglycerin (Nitrostat) 0.4 mg SUBLINGUAL Q5M PRN PRN Reason: CARDIAC/CHEST PAIN Ondansetron HCl (Zofran) 4 mg IV Q8H PRN PRN PRN Reason: NAUSEA/VOMITING Sodium Chloride () 10 - 40 ml IV UD PRN PRN Reason: SALINE FLUSH Sodium Chloride () 500 ml IV BOLUS PRN PRN Reason: VASO-VAGAL PROTOCOL Tizanidine HCl (Zanaflex) 4 mg PO Q8H PRN PRN Reason: muscle spasms Discharge Diet: 1800 Calorie Control Diet Discharge Activity: Return to Normal Activity Home Medications: Medications to take at Discharge insulin aspart U-100 100 unit/mL (3 mL) subcutaneous pen 8 unit SC BIDCM ml 07/26/17 Insulin Detemir [Levemir FlexPen] 11 units SQ DAILY 06/22/18 Nitroglycerin (INPATIENT USE) [Nitrostat] 0.4 mg SUBLINGUAL Q5M PRN 06/22/18 Diazepam [Valium] 2.5 - 5 mg PO DAILY PRN PRN 03/26/19 Labetalol HCl 200 mg PO BID 03/26/19 Tizanidine HCl [Zanaflex] 4 mg PO Q8H PRN #10 tab 03/27/19 simvastatin 20 mg tablet 20 mg PO QHS #90 tab 06/12/19 clopidogrel 75 mg tablet 75 mg PO DAILY #90 tab 08/14/19 Acyclovir [Zovirax] 1 applic TOPICAL BID 08/31/19 Ciclopirox 1 applic TP QHS 08/31/19 Fluconazole [Diflucan] 150 mg PO PRN PRN 08/31/19 Isosorbide Mononitrate [Isosorbide Mononitrate ER] 30 mg PO DAILY 08/31/19 Lidocaine [Lidocaine 5%] 1 patch TOPICAL DAILY 08/31/19 NIFEdipine [Procardia Xl] 60 mg PO DAILY 08/31/19 Neomycin/Polymyxin B/Dexametha [Maxitrol Eye Drops] 5 ml OP PRN PRN 08/31/19 Triamcinolone Acetonide 1 applicatio TP BID 08/31/19 Albuterol IH (ProAir) [Proair Hfa] 2 puff INHALATION Q4H PRN PRN #1 inhaler 09/07/19 Isosorbide Mononitrate [Imdur] 30 mg PO BID #120 tab 09/07/19 Following Prescrptions Were Given to Patient: Isosorbide Mononitrate [Imdur] 30 mg PO BID #120 tab Transmission Status: Pending to [facility] Albuterol IH (ProAir) [Proair Hfa] 2 puff INHALATION Q4H PRN PRN #1 inhaler PRN Reason: Dyspnea/Wheezing/Sob Transmission Status: Pending to [facility] Other Amb Orders: Phase II, Outpatient Cardiac Rehab Location: None Selected Primary Care Physician: Annette Mckinley MD [Primary Care Provider] - Please follow up with your Primary Care Physician in: in 3-5 days Please Follow Up With: Carlos Adamson DO When: in 2-3 weeks Please Follow Up With: Aroldo Urrutia MD When: in 1-2 weeks for follow up of kidney function Minutes spent on discharge:: 35 Patient Condition:: Stable Medical Necessity - Tobacco Use Smoking Status: Former smoker Meaningful Use Info Meaningful Use Diagnoses (Choose all that apply): None applicable Code Visit Inpatient E&M: 01854 Disch Hosp
[2019-09-07] MEDS: Insulin Lispro 100 UNIT/ML INSULN.PEN SC (12:16)
[2019-09-07 13:51] LABS: Bedside Glucose 218 mg/dL (70-110)
--- NOTE | 2019-09-07 14:47 | PCM.PN.REN ---
Patient Problems: Active and Suspected Problems (Last Updated 09/04/19 @ 09:25 by Yue Holley) ASHISH (acute kidney injury) (Acute) Chest pain, unspecified (Acute) Subjective: No new complaints - Physical Exam Vitals/I&O's: Vital Signs Temp Pulse Resp BP Pulse Ox 98 F 83 20 H 161/61 H 95 09/07/19 14:31 09/07/19 14:31 09/07/19 14:31 09/07/19 14:31 09/07/19 14:31 Oxygen Flow Rate (L/min) 2 Oxygen Delivery Method Room Air Weight: 88.7 kg Body Mass Index (BMI) 35.0 Intake and Output for Last 24 Hours 09/05/19 09/06/19 09/07/19 23:59 23:59 23:59 Intake Total 1840.00 / 2320.00 700 / 700 580 / 580 Output Total 1425 / 1975 850 / 850 Balance 415.00 / 345.00 -150 / -150 580 / 580 General: Alert, Oriented x3, Cooperative HEENT: Atraumatic, PERRLA, EOMI, Normocephalic Neck: Supple, No JVD, Negative Carotid Bruits Lungs: Clear to auscultation, Normal air movement Cardiovascular: Regular rate, No murmurs Abdomen: Bowel Sounds Present, Soft, Non Tender Extremities: No edema, Capillary Refill Less than 3 Seconds Skin: No rashes, No breakdown Musculoskeletal: No Tenderness to Palpation of Joints or Extremities Neurological: Cranial nerves II-XII grossly intact Psych/Mental Status: Normal Affect, Appropriate Laboratory Results 09/06/19 16:57: POC Glucose 104 09/07/19 01:55: POC Glucose 95 09/07/19 07:45: WBC 7.4, RBC 3.79 L, Hgb 9.8 L, Hct 31.6 L, MCV 83.4, MCH 25.9 L, MCHC 31.0 L, RDW Std Deviation 47.2 H, RDW Coeff of Chelsey 15.7 H, Plt Count 179, MPV 9.9 09/07/19 07:45: Sodium 144, Potassium 4.4, Chloride 116 H, Carbon Dioxide 25.0, Anion Gap 3 L, BUN 27 H, Creatinine 1.59 H, Estim Creat Clear Calc 24.84, Est GFR (MDRD) Af Amer 41 L, Est GFR (MDRD) Non-Af 34 L, BUN/Creatinine Ratio 17.0, Glucose 102, Calcium 8.6 09/07/19 08:47: POC Glucose 115 H 09/07/19 12:14: POC Glucose 218 H Current Medications Acetaminophen (Tylenol) 650 mg PO Q6H PRN PRN PRN Reason: Pain Score 1-3/10 Last Admin: 09/06/19 20:19 Dose: 650 mg Documented by: Al Hydroxide/Mg Hydroxide (Mylanta Ii) 30 ml PO Q6H PRN PRN PRN Reason: Gastric Burning Albuterol Sulfate (Ventolin Aerosols) 2.5 mg INHALATION Q2H PRN PRN PRN Reason: DYSPNEA/WHEEZING/SOB Last Admin: 09/05/19 22:51 Dose: 2.5 mg Documented by: Aspirin (Ecotrin) 81 mg PO DAILY@0800 [facility] Last Admin: 09/07/19 08:59 Dose: 81 mg Documented by: Atorvastatin Calcium (Lipitor) 10 mg PO QHS [facility] Last Admin: 09/06/19 21:27 Dose: 10 mg Documented by: Atropine Sulfate () 0.5 mg IV UD PRN PRN Reason: HR <50 bpm Clopidogrel Bisulfate (Plavix) 75 mg PO DAILY [facility] Last Admin: 09/07/19 08:59 Dose: 75 mg Documented by: Glucagon () 1 mg IM .X1 PRN PRN Reason: Hypoglycemia Heparin Sodium (Beef Lung) (Heparin 500 Unit/5 Ml (100/Ml)) 500 unit IV UD PRN PRN Reason: HEPARIN FLUSH Dextrose (Dextrose 10%-Water) 250 mls @ 999 mls/hr IV .Q16M PRN; Protocol PRN Reason: HYPOGLYCEMIA Sodium Chloride () 250 mls @ 15 mls/hr IV .[id number] PRN PRN Reason: Saline Flush Sodium Chloride () 250 mls @ 15 mls/hr IV .[id number] PRN PRN Reason: Additional IVPB Infusion Insulin Glargine (Lantus ([facility])) 11 units SC DAILY [facility] Last Admin: 09/07/19 08:59 Dose: 11 units Documented by: Insulin Human Lispro (Humalog Kwikpen ([facility])) 0 unit SC [facility]; Protocol Last Admin: 09/07/19 12:16 Dose: 2 u Documented by: Insulin Human Lispro (Humalog Kwikpen (Bkc)) [facility] Last Admin: 09/07/19 08:57 Dose: Not Given Documented by: Isosorbide Mononitrate (Imdur) 30 mg PO BID [facility] Last Admin: 09/07/19 08:58 Dose: 30 mg Documented by: Labetalol HCl (Trandate) 200 mg PO BID [facility] Last Admin: 09/07/19 08:59 Dose: 200 mg Documented by: Labetalol HCl (Trandate) 20 mg IV X1 PRN PRN Reason: SBP > 160 when pulling sheath Lorazepam (Ativan) 1 mg PO Q6H PRN PRN PRN Reason: BACK SPASMS/ANXIETY Melatonin (Melatonin) 3 mg PO QHS PRN PRN PRN Reason: INSOMNIA Metoclopramide HCl (Reglan) 5 mg IV Q6H PRN PRN PRN Reason: NAUSEA/VOMITING Nifedipine (Procardia Xl) 60 mg PO DAILY [facility] Last Admin: 09/07/19 08:58 Dose: 60 mg Documented by: Nitroglycerin (Nitrostat) 0.4 mg SUBLINGUAL Q5M PRN PRN Reason: CARDIAC/CHEST PAIN Ondansetron HCl (Zofran) 4 mg IV Q8H PRN PRN PRN Reason: NAUSEA/VOMITING Sodium Chloride () 10 - 40 ml IV UD PRN PRN Reason: SALINE FLUSH Sodium Chloride () 500 ml IV BOLUS PRN PRN Reason: VASO-VAGAL PROTOCOL Tizanidine HCl (Zanaflex) 4 mg PO Q8H PRN PRN Reason: muscle spasms Medical Necessity - Tobacco Use Smoking Status: Former smoker Assessment/Plan All Active Problems (Last Updated 09/04/19 @ 09:10 by Sadie Frazier) ASHISH (acute kidney injury) (Acute) Chest pain, unspecified (Acute) Non-ST elevation (NSTEMI) myocardial infarction (Resolved 06/22/18) ACS (acute coronary syndrome) (Resolved) Acute diastolic (congestive) heart failure (Resolved) Cellulitis of buttock (Resolved) Chest pain (Resolved) Corneal injury (Resolved) Diverticulitis large intestine (Resolved) Hypertensive urgency (Resolved) Muscle cramps (Resolved) Right wrist pain (Resolved) S/P colonoscopy (Resolved) ASHISH. baseline creatinine is 1.1 on admission. no prior kidney disease. received CTA and PCI. as per records in total 470 cc of contrast. most likely RASHARD. Creatinine today is better. Urine output has improved. Clinically looks euvolemic. IV fluids have been discontinued. No need for diuretics today. Discharge home today. will Arrange follow-up in 1 to 2 weeks.
--- NOTE | 2019-09-10 15:15 | CASEMGMT ---
RN KYREE Discharge F/U Phone Call LACE: 13 Strata: 3 Discharge date: 09/07/19 Call date: 09/10/19 Call time: [id number] Duration: Less than 1 minute Admission dx: Chest pain Pt answered phone and stated that HHC was there at this time with pt. Pt voices no further questions/concerns/needs at this time and this RN KYREE then got off the phone so that [facility] could complete start of care. [place] AMY ADORNO
== END 2019-09-07 15:00 | disposition home or self-care (01) | DRG 247 ==
LOC: ED 09-03 05:21 → PCU 09-03 07:38 → ICU 09-04 08:46 → PCU 09-04 10:18 → ICU 09-05 12:25 → PCU 09-06 15:52
PROVIDERS: Admitting Provider Internal Medicine; Emergency Provider Emergency Medicine; PCP Internal Medicine; Visit Provider Internal Medicine
DX: I25.110 Atherosclerotic heart disease of native coronary artery with unstable angina pectoris (principal); N17.9 Acute kidney failure, unspecified; I50.32 Chronic diastolic (congestive) heart failure; I11.0 Hypertensive heart disease with heart failure; R06.00 Dyspnea, unspecified; N14.1 Nephropathy induced by other drugs, medicaments and biological substances; T50.8X5A Adverse effect of diagnostic agents, initial encounter; E11.51 Type 2 diabetes mellitus with diabetic peripheral angiopathy without gangrene; E66.9 Obesity, unspecified; E78.5 Hyperlipidemia, unspecified; Z95.5 Presence of coronary angioplasty implant and graft; I25.2 Old myocardial infarction; Z87.891 Personal history of nicotine dependence; Z79.4 Long term (current) use of insulin; F41.9 Anxiety disorder, unspecified; Z79.899 Other long term (current) drug therapy; Z68.38 Body mass index [BMI] 38.0-38.9, adult; E11.65 Type 2 diabetes mellitus with hyperglycemia; Z79.02 Long term (current) use of antithrombotics/antiplatelets; G47.10 Hypersomnia, unspecified
CPT/HCPCS: 36415; 71045; 71275; 76770; 80048; 80053; 80061; 82962; 83735; 83880; 84484; 85025; 85027; 85347; 85379; 92928; 93005; 93306; 93458; 94640; 94760; 97116; 97163; 97166; 97530; 97535; 97802; 99152; 99153; 99285; C1760; J7030; Q9967; A4216; C1725; C1769; C1874; C1887; C1894; C9600; J1940

== ENCOUNTER 2019-09-18 16:33 | Inpatient (IN) | payer MEDICARE, OTHER, SELFPAY ==
[2019-09-03 08:14] VITALS: BMI 35.0
[2019-09-18] VITALS (20 sets, daily range): BP systolic 0–160; BP diastolic 0–107; PULSE 66–79; RESP 12–20; TEMP 35.2–36.8; O2SAT 93–100; BMI 36.5; BMI 30.4; BMI 30.5
--- NOTE | 2019-09-18 16:44 | EKG12_ITS ---
Test Reason : SOB Blood Pressure : / mmHG Vent. Rate : 072 BPM Atrial Rate : 072 BPM P-R Int : 172 ms QRS Dur : 078 ms QT Int : 412 ms P-R-T Axes : 051 002 086 degrees QTc Int : 451 ms Normal sinus rhythm Nonspecific T wave abnormality Abnormal ECG Confirmed by DOTTIE GUADALUPE, FANNY ([id number]), fashion editor ELLIOT COLÓN ([id number]) on 09/21/2019 1:05:11 PM Referred By: FAN Confirmed By:CHARO SINCLAIR MD
[2019-09-18] MEDS: Rocuronium Bromide 50 MG/5 ML Vial 100 MG IV (16:57)
[2019-09-18] MEDS: Propofol 10MG/Ml 1,000 MG/100 ML Bottle 6.5 MG CONT INF (17:00)
--- NOTE | 2019-09-18 17:04 | ED.VIS.GEN ---
History of Present Illness Chief Complaint: Shortness of Breath Informant: Continuous Improvement Analyst Limited by: [place] Onset: Today Context: Sudden Onset Narrative: Patient is a 77-year-old female with history of coronary artery disease most recently with a stent placed in RCA 2 weeks ago, hypertension, diabetes mellitus, hyperlipidemia, diastolic heart failure and reactive airway disease presenting with respiratory arrest. Patient called the EMS earlier today for shortness of breath. They gave her an aerosol treatment and the patient declined further transport. She called them again later this afternoon for worsening shortness of breath. Patient was walking to the ambulance when she suddenly had respiratory arrest. EMS states she stopped breathing and her pulse went down into the 40s. They did start bagging her immediately and placed an oral airway. Patient then became combative and spit out the oral airway. She was not however following commands they discontinued to bag her with an Ambu bag. Patient then arrived to the emergency room. No other history is obtained at this point. Patient does live home alone. Past Medical History - Allergies and Home Meds Allergies/Adverse Reactions: Allergies acetaminophen [From [place]] Allergy (Verified 09/02/19 23:47) Other hydrocodone [From [place]] Allergy (Verified 09/02/19 23:47) Other metformin Allergy (Verified 09/02/19 23:47) Unknown Past Medical History: - - Diastolic heart failure, hypertension, hyperlipidemia, coronary artery disease, Diabetes mellitus and suspected reactive airway disease Surgical History: - - Total abdominal hysterectomy, PCI x1, angioplasty left lower extremity, right rotator cuff repair, left knee arthroscopic surgery. Smoking Status: Former smoker - Family History Paternal Family History: Family History (Last Reviewed 09/03/19 @ 07:[address] Ahsan Jean MD) Mother Arthritis Father Arthritis Family History: Reports: - - Patient denies any market paternal family history including heart disease, diabetes or cancer. Maternal Family History: Family History (Last Reviewed 09/03/19 @ 07:[address] Ahsan Jean MD) Mother Arthritis Father Arthritis Family History: Reports: Heart Disease Review of Systems ROS: Unable to Obtain - Mental status change, respiratory distress Physical Exam Vital Signs/Narrative: Vital Signs Temp Pulse BP Pulse Ox 09/18/19 16:45 160/107 H 09/18/19 16:35 97.5 F L 79 0/0 L 95 Inital Vital Signs reviewed: Yes General: Obese, Acute Distress Head: Normocephalic, Atraumatic Eyes: Perrl. Negative for: Scleral icterus ENT: No rhinorrhea, Dry mucous membranes Neck: Supple, No JVD Cardiovascular: Regular rate, Regular rhythm, No murmurs Respiratory: Diminished, Decreased Air Movement - Very limited air movement, - - Respiratory distress. Negative for: Rhonchi, Wheezing Abdomen: Soft, Nontender, Nondistended Extremities: Nontender, No edema Skin: Normal color, No rash, Diaphoresis Neurological: Confused, Disoriented, - - Patient unable to answer any questions and only grunts in response, she is spontaneous movement of all her extremities and seems to withdraw from pain Diagnostic/Tx/Re-eval Chest X-Ray - ED: 1 View, Read by ED Physician, Read by Radiologist, Right Infiltrate Clinical Impression(s) from Imaging Studies Chest X-Ray 09/18/19 17:05 IMPRESSION: Lines and tubes as above. Patchy right basilar opacity is nonspecific and may represent pneumonia in the appropriate clinical setting. Electronically Signed: Graeme Gardner, at 17:45 EDT Tel , Service support , Laboratory Data 09/18/19 09/18/19 09/18/19 17:06 17:15 17:15 WBC 13.1 H RBC 3.79 L Hgb 9.7 L Hct 32.8 L MCV 86.5 MCH 25.6 L MCHC 29.6 L RDW Std Deviation 48.7 H RDW Coeff of Chelsey 15.3 H Plt Count 213 MPV 10.4 Immature Gran % (Auto) 1.200 H Neut % (Auto) 78.2 H Lymph % (Auto) 11.6 L [place] % (Auto) 5.9 Eos % (Auto) 2.9 Baso % (Auto) 0.2 Absolute Neuts (auto) 10.2 H Absolute Lymphs (auto) 1.51 Nucleated RBC % 0 Specimen Type Sample Site pH Bicarbonate Actual POC Total CO2 Base Excess O2 Saturation O2 % ABG pCO2 ABG pO2 Respiration Rate O2 Delivery Device Vent Mode Tidal Volume POC PEEP Blood Gas Notified Whom Blood Gas Notified Time Sodium 141 Potassium 4.2 Chloride 110 H Carbon Dioxide 27.0 Anion Gap 4 L BUN 12 Creatinine 1.16 H Estim Creat Clear Calc 45.52 Est GFR (MDRD) Af Amer 59 L Est GFR (MDRD) Non-Af 49 L BUN/Creatinine Ratio 10.3 Glucose 100 Lactic Acid Calcium 8.9 Troponin I 0.019 B-Natriuretic Peptide 156.4 H 09/18/19 09/18/19 17:30 17:40 WBC RBC Hgb Hct MCV MCH MCHC RDW Std Deviation RDW Coeff of Chelsey Plt Count MPV Immature Gran % (Auto) Neut % (Auto) Lymph % (Auto) [place] % (Auto) Eos % (Auto) Baso % (Auto) Absolute Neuts (auto) Absolute Lymphs (auto) Nucleated RBC % Specimen Type ART Sample Site L Brachial pH 7.25 L Bicarbonate Actual 27.6 H POC Total CO2 30 Base Excess 0 O2 Saturation 99 O2 % 70 ABG pCO2 62.5 H ABG pO2 180 H Respiration Rate 12 O2 Delivery Device Vent Vent Mode A-C Tidal Volume 450 POC PEEP 5 Blood Gas Notified Whom ED MD Blood Gas Notified Time 1735 Sodium Potassium Chloride Carbon Dioxide Anion Gap BUN Creatinine Estim Creat Clear Calc Est GFR (MDRD) Af Amer Est GFR (MDRD) Non-Af BUN/Creatinine Ratio Glucose Lactic Acid 1.4 Calcium Troponin I B-Natriuretic Peptide - Rhythm Strip Rhythm Strip: Sinus Rhythm Rate: 72 Ectopy: None - EKG Initial EKG Interpretation: Sinus Rhythm, - - Normal sinus rhythm at a rate of 72 Normal axis Normal intervals T wave inversion and aVL Compared to prior EKG on 09/06/2019 no acute changes - Medical Decision Making Patient arrives in respiratory distress. She is altered. I suspect patient is severely hypercapnic. Patient had respiratory arrest per EMS but did not have cardiac arrest. Patient is stabilized, IV access obtained and she is intubated for further airway control. ABG performed 20 minutes after intubation shows hypercapnic respiratory acidosis. She is not hypoxic however. Of note patient desaturated very quickly during intubation attempts. Patient does have a mild leukocytosis as well as a infiltrate in her right lower lobe. This is likely the cause of her hypoxia. She is also significantly constricted breath sounds. She is given Solu-Medrol as well as albuterol treatment. After albuterol treatment she has more wheezing but less diminished breath sounds. She is given vancomycin and Rocephin to cover for bacterial pneumonia. Patient is admitted to medicine service with consult to ICU, Dr. Adamson. She is stabilized. Condition is discussed with her emergency contact, Rossi. Patient does meet criteria for severe sepsis because of her respiratory failure secondary to pneumonia. Her lactate however is normal. - Critical Care Time Critical care time (excluding procedures): 30-74 minutes - 40, Discussing w/Consultants, Performing Direct Patient Care at Bedside - Patient required frequent evaluation for her respiratory distress excluding time spent intubating. Reviewed labs with admitting physician as well as spoke with critical care doctor, Dr. Adamson. Also discussed with patient's emergency contact, Traci. Performed bedside titration of ventilation settings. Procedures Procedure(s): Intubation. Patient preoxygenated with Ambu bag up to 100%. She is placed on continuous pulse ox and telemetry monitoring. She is sedated with ketamine and attempt using video laryngoscopy was made to intubate. I had partial visualization of the cords however I was unable to pass the ET tube. Patient started to become bradycardic. She was oxygenated again with Ambu bag and once her vital signs improved rocuronium was given and second attempt to intubate. This time I had better visualization and was able to visualize passing 7.5 cm ET tube past the cords. ET tube was 23 cm at the lip patient equal chest rise, condensation in the tube, equal breath sounds and and capnography changes. No immediate complications. Chest x-ray obtained to verify placement. ED Disposition - Plan for ED Patient: Disposition: Acute Care [facility] Diagnosis: Acute respiratory failure with hypoxia and hypercapnia, Right lower lobe pneumonia, Severe sepsis
--- NOTE | 2019-09-18 17:05 | RAD_ITS ---
STUDY: X-RAY CHEST REASON FOR EXAM: Female, 69 years old. ETT placement, OGT placement, respiratory distress TECHNIQUE: Frontal view COMPARISON: 09/03/2019. FINDINGS: Endotracheal tube tip in the mid thoracic trachea. Enteric tube entering the stomach with tip not visualized. Cardiac silhouette unremarkable. Pulmonary vascularity unremarkable. Aorta atherosclerotic. Patchy opacity is noted at the right base. No pleural effusions. Upper abdomen unremarkable. Osseous structures intact. No pneumothorax. RAD/Chest 1 View (Portable) IMPRESSION: Lines and tubes as above. Patchy right basilar opacity is nonspecific and may represent pneumonia in the appropriate clinical setting. Electronically Signed: Graeme Gardner, at 17:45 EDT Tel , Service support ,
[2019-09-18 17:25] LABS: Absolute Lymphocyte Count 1.51 X10^3/uL (0.83-4.51); Absolute Neutrophil Count 10.2 X10^3/uL (2.0-7.7); Basophil# 0.03 X10^3/uL; Basophil% 0.2 % (0-1); Eosinophil# 0.38 X10^3/uL; Eosinophils% 2.9 % (0-5); Hematocrit 32.8 % (37-47); Hemoglobin 9.7 g/dL (12.0-15.0); Lymphocyte # 1.51 X10^3/ul (4.0); Lymphocyte % 11.6 % (19-41); Mean Corp Hgb Conc 29.6 g/dL (32-36); Mean Corpuscular Hgb 25.6 pg (27.0-32.0); Mean Corpuscular Volume 86.5 fL (81-99); Mean Platelet Vol. 10.4 fl (6.2-12.0); Monocyte# 0.77 X10^3/uL; Monocyte% 5.9 % (0-10); NRBC Flagged by Analyzer 0 % (0-5); Neutrophil # 10.22 X10^3/uL (2.7-7.7); Neutrophil % 78.2 % (47-70); Platelet Count 213 K/mm3 (150-450); RBC Distribution Width CV 15.3 % (11.6-14.6); RBC Distribution Width SD 48.7 fl (35.1-43.9); Red Blood Count 3.79 M/mm3 (4.2-5.4); White Blood Count 13.1 K/mm3 (4.4-11.0)
[2019-09-18 17:39] LABS: Anion Gap 4 (5-15); BUN 12 mg/dL (7-18); BUN/Creat Ratio 10.3 RATIO (10-20); Calcium,Total 8.9 mg/dL (8.5-10.1); Chloride 110 mmol/L (98-107); Creatinine, Serum 1.16 mg/dL (0.55-1.02); EST Glomerular Filtration Rate 49 mL/min (>60); Est Glom Filt Rate - Afr Amer 59 mL/min (>60); Estimated Creatinine Clearance 45.52 ml/min; Glucose 100 mg/dL (74-106); Potassium 4.2 mmol/L (3.5-5.1); Sodium Level 141 mmol/L (136-145)
[2019-09-18 17:45] LABS: Base Excess 0 mmol/L (-2 to +2); Bicarbonate 27.6 mmol/L (22-26); Blood Gas Specimen Type ART; FI02 70; Mode A-C; O2 Delivery Device Vent; PEEP 5; PO2 180 mmHG (75-100); RR 12; SITE L Brachial; SO2 99 % (95-99); Time Given 1735; Total Carbon Dioxide 30 mmol/L; Vt 450; pCO2 62.5 mmHg (35-45); pH 7.25 (7.35-7.45)
[2019-09-18 17:47] LABS: BNP,B-Type NATRIURETIC PEPTIDE 156.4 pg/mL (0-100)
[2019-09-18] MEDS: Ipratropium/Albuterol Sulfate 3 ML AMPUL.NEB INHALATION ×3 (17:52→23:20)
--- NOTE | 2019-09-18 18:02 | HP.PCM_ITS ---
Problem List (1) Acute respiratory failure with hypoxia and hypercapnia Status: Acute (2) Right lower lobe pneumonia Status: Acute (3) ASHISH (acute kidney injury) Status: Inactive (4) Chest pain, unspecified Status: Inactive (5) Atherosclerosis of coronary artery of [place] heart without angina pectoris Status: Chronic Qualifiers: Coronary Disease-Associated Artery/Lesion type: [place] artery Qualified Code(s): I25.10 - Atherosclerotic heart disease of [place] coronary artery without angina pectoris (6) History of coronary artery stent placement Status: Chronic Comment: [id number] LAD w/ a 3.0 x 38 mm Synergy Stent 06/23/18; PTCA/SIVAN of mid RCA with a 2.25 x 38 Promus Synergy 09/03/2019 (7) Non-ST elevation (NSTEMI) myocardial infarction Status: Resolved (8) Chronic diastolic CHF (congestive heart failure) Status: Chronic (9) Peripheral vascular occlusive disease Status: Chronic Comment: left peroneal and proximal left posterior tibial angioplasty and left superficial femoral atherectomy and angioplasty 02/28/19 (10) Claudication Status: Chronic (11) Essential (primary) hypertension Status: Chronic (12) Hyperlipidemia Status: Chronic Qualifiers: Hyperlipidemia type: pure hypercholesterolemia Qualified Code(s): E78.00 - Pure hypercholesterolemia, unspecified; E78.0 - Pure hypercholesterolemia History of Present Illness Date of Admission: 09/18/19 Chief Complaint: Progressive worsening of shortness of breath for 1 to 2 days The patient is a 69 year old F with history of acute chest pain and acute kidney injury for which she was admitted in August 2019 and had PCI in mid RCA in June 2018 brought in by EMS for shortness of breath. Prior to that, patient called EMS for shortness of breath and was treated with aerosol and patient declined further transport to ER. In afternoon patient got more short of breath and had respiratory arrest for which oral airway was placed by EMS and then transported to ER. Patient was subsequently intubated in ED. Patient lives alone. Her friend Ms. Luci Goldsmith [phone] was called According to her, after recent discharge, patient used to get dyspnea on exertion and chest tightness on walking and also loud snoring during sleep. I think, she was also scheduled for sleep study. After first EMS visit, second time she was more short of breath, coughing and rattling and could not breathe. She has been coughing for a few days but does not know about fever or chills. In ED, patient was afebrile, heart rate in 70s, blood pressure 124/57, intubated currently on 50% FiO2 Chest x-ray independently reviewed shows patchy right basilar opacity. EKG shows normal sinus rhythm at 72 bpm. QTc 451 ms. Past Medical History Past Medical History (Chronic Problems): Chronic Problems (Last Updated 09/04/19 @ 09:25 by Yue Holley) Atherosclerosis of coronary artery of [place] heart without angina pectoris (Chronic) History of coronary artery stent placement (Chronic 09/03/19) [id number] LAD w/ a 3.0 x 38 mm Synergy Stent 06/23/18; PTCA/SIVAN of mid RCA with a 2.25 x 38 Promus Synergy 09/03/2019 Chronic diastolic CHF (congestive heart failure) (Chronic) Peripheral vascular occlusive disease (Chronic) left peroneal and proximal left posterior tibial angioplasty and left superficial femoral atherectomy and angioplasty 02/28/19 Claudication (Chronic) Essential (primary) hypertension (Chronic) Hyperlipidemia (Chronic) Medical History: Medical History (Last Updated 09/04/19 @ 09:25 by Yue Holley) Atherosclerosis of coronary artery of [place] heart without angina pectoris (Chronic) I25.10 Non-ST elevation (NSTEMI) myocardial infarction (Resolved) Onset Date: 06/22/18 I21.4 Chronic diastolic CHF (congestive heart failure) (Chronic) I50.32 Peripheral vascular occlusive disease (Chronic) I73.9 left peroneal and proximal left posterior tibial angioplasty and left superficial femoral atherectomy and angioplasty 02/28/19 Claudication (Chronic) I73.9 Essential (primary) hypertension (Chronic) I10 Hyperlipidemia (Chronic) E78.5 Anxiety F41.9 Back problem M53.9 Chronic kidney disease (CKD) N18.9 Diabetes mellitus, type II E11.9 Hepatitis K75.9 Obesity E66.9 PAD (peripheral artery disease) I73.9 Acute diastolic (congestive) heart failure (Resolved) I50.31 Corneal injury (Resolved) S05.8X9A Diabetes type 2, controlled E11.9 Dx : 1998 Last exacerbation : DKA : never Hypoglycemic episode : never ER visit : never Right wrist pain (Resolved) M25.531 Abnormal ultrasound of lower extremity (Inactive) R93.6 Allergies acetaminophen [From [place]] Allergy (Verified 09/02/19 23:47) Other hydrocodone [From [place]] Allergy (Verified 09/02/19 23:47) Other metformin Allergy (Verified 09/02/19 23:47) Unknown Home Medications: Ambulatory Orders Medication Instructions Recorded insulin aspart U-100 100 unit/mL 8 unit SC BIDCM ml 07/26/17 (3 mL) subcutaneous pen Insulin Detemir [Levemir FlexPen] 11 units SQ DAILY 06/22/18 Nitroglycerin (INPATIENT USE) 0.4 mg SUBLINGUAL Q5M PRN 06/22/18 [Nitrostat] Diazepam [Valium] 2.5 - 5 mg PO DAILY PRN PRN 03/26/19 Labetalol HCl 200 mg PO BID 03/26/19 Tizanidine HCl [Zanaflex] 4 mg PO Q8H PRN #10 tab 03/27/19 simvastatin 20 mg tablet 20 mg PO QHS #90 tab 06/12/19 clopidogrel 75 mg tablet 75 mg PO DAILY #90 tab 08/14/19 Acyclovir [Zovirax] 1 applic TOPICAL BID 08/31/19 Ciclopirox 1 applic TP QHS 08/31/19 Fluconazole [Diflucan] 150 mg PO PRN PRN 08/31/19 Isosorbide Mononitrate [Isosorbide 30 mg PO DAILY 08/31/19 Mononitrate ER] Lidocaine [Lidocaine 5%] 1 patch TOPICAL DAILY 08/31/19 NIFEdipine [Procardia Xl] 60 mg PO DAILY 08/31/19 Neomycin/Polymyxin B/Dexametha 5 ml OP PRN PRN 08/31/19 [Maxitrol Eye Drops] Triamcinolone Acetonide 1 applicatio TP BID 08/31/19 Albuterol IH (ProAir) [Proair Hfa] 2 puff INHALATION Q4H PRN PRN #1 09/07/19 inhaler Isosorbide Mononitrate [Imdur] 30 mg PO BID #120 tab 09/07/19 Surgical History: Surgical History (Last Updated 09/04/19 @ 09:10 by Sadie Frazier) History of coronary artery stent placement (Chronic) Onset Date: 09/03/19 Z95.5 [id number] LAD w/ a 3.0 x 38 mm Synergy Stent 06/23/18; PTCA/SIVAN of mid RCA with a 2.25 x 38 Promus Synergy 09/03/2019 History of total abdominal hysterectomy Z98.890, Z90.710 History of angioplasty of peripheral vessel Onset Date: 02/28/19 Z98.62 left peroneal and proximal left posterior tibial angioplasty and left superficial femoral atherectomy and angioplasty 02/28/19 S/P colonoscopy (Resolved) Z98.890 Surgical History: - - Total abdominal hysterectomy, PCI x1, angioplasty left lower extremity, right rotator cuff repair, left knee arthroscopic surgery. 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 Ahsan Jean MD) Mother Arthritis Father Arthritis History Items: Heart Disease Paternal Family History: Family History (Last Reviewed 09/03/19 @ 07:[address] Ahsan Jean MD) Mother Arthritis Father Arthritis History Items: - - Patient denies any market paternal family history including heart disease, diabetes or cancer. Review of Systems Unable to obtain accurate/complete ROS d/t: Patient is intubated and sedated VTE Information - Inpt Only VTE Present on Admission: No VTE Mechan Device Prophylaxis: SCD's VTE Pharm Prophylaxis ordered?: Yes Patient Problems: Active and Suspected Problems (Last Updated 09/04/19 @ 09:25 by Yue Holley) Acute respiratory failure with hypoxia and hypercapnia (Acute) Right lower lobe pneumonia (Acute) - Physical Exam Vitals/I&O's: Vital Signs Temp Pulse Resp BP Pulse Ox 96.7 F L 74 12 124/57 H 100 09/18/19 17:39 09/18/19 17:44 09/18/19 17:39 09/18/19 17:39 09/18/19 17:44 Oxygen Delivery Method Mechanical Ventilator Weight: 240 lb Body Mass Index (BMI) 36.5 Finger Stick Blood Glucose 92 General: - - Sedated and intubated HEENT: Atraumatic, PERRLA, Normocephalic Neck: Supple, No JVD, Negative Carotid Bruits Lungs: No rhonchi, No wheeze, No rales, Diminished - On vent support. Cardiovascular: Regular rate, Regular Rhythm, Normal S1, Normal S2, No murmurs Abdomen: Bowel Sounds Present, Soft, Non Tender, Non-Distended, - - [place] catheter inserted in ED. Yellowish urine in [place] catheter tube Extremities: Capillary Refill Less than 3 Seconds, Edema, - Skin: No rashes, No breakdown Musculoskeletal: No Tenderness to Palpation of Joints or Extremities, Arthritic Changes Lymphatic: No Cervical, Supraclavicular, or Inguinal Adenopathy Neurological: - - Neuro exam unobtainable as patient is on sedative Laboratory Results 09/18/19 17:06: Sodium 141, Potassium 4.2, Chloride 110 H, Carbon Dioxide 27.0, Anion Gap 4 L, BUN 12, Creatinine 1.16 H, Estim Creat Clear Calc 45.52, Est GFR (MDRD) Af Amer 59 L, Est GFR (MDRD) Non-Af 49 L, BUN/Creatinine Ratio 10.3, Glucose 100, Calcium 8.9, Troponin I 0.019 09/18/19 17:15: WBC 13.1 H, RBC 3.79 L, Hgb 9.7 L, Hct 32.8 L, MCV 86.5, MCH 25.6 L, MCHC 29.6 L, RDW Std Deviation 48.7 H, RDW Coeff of Chelsey 15.3 H, Plt Count 213, MPV 10.4, Immature Gran % (Auto) 1.200 H, Neut % (Auto) 78.2 H, Lymph % (Auto) 11.6 L, [place] % (Auto) 5.9, Eos % (Auto) 2.9, Baso % (Auto) 0.2, Absolute Neuts (auto) 10.2 H, Absolute Lymphs (auto) 1.51, Nucleated RBC % 0 09/18/19 17:15: B-Natriuretic Peptide 156.4 H 09/18/19 17:30: Lactic Acid Pending 09/18/19 17:40: Specimen Type ART, Sample Site L Brachial, pH 7.25 L, Bicarbonate Actual 27.6 H, POC Total CO2 30, Base Excess 0, O2 Saturation 99, O2 % 70, ABG pCO2 62.5 H, ABG pO2 180 H, Respiration Rate 12, O2 Delivery Device Vent, Vent Mode A-C, Tidal Volume 450, POC PEEP 5, Blood Gas Notified Whom ED , Blood Gas Notified Time 1738 Current Medications Propofol (Diprivan) 1,000 mg in 100 mls @ 6.532 mls/hr CONT INF .Q12H MÓNICA; Protocol Last Admin: 09/18/19 17:00 Dose: 10 mcg/kg/min, 6.5 mls/hr Documented by: Vancomycin HCl 1,750 mg/ (Dextrose) 285 mls @ 250 mls/hr IV X1 ONE Stop: 09/18/19 19:00 Piperacillin Sod/Tazobactam (Sod 4.5 gm/ Sodium Chloride) 100 mls @ 200 mls/hr IV X1 ONE Stop: 09/18/19 18:21 Assessment/Plan All Active Problems (Last Updated 09/04/19 @ 09:10 by Sadie Frazier) Acute respiratory failure with hypoxia and hypercapnia (Acute) Right lower lobe pneumonia (Acute) Non-ST elevation (NSTEMI) myocardial infarction (Resolved 06/22/18) ACS (acute coronary syndrome) (Resolved) Acute diastolic (congestive) heart failure (Resolved) Cellulitis of buttock (Resolved) Chest pain (Resolved) Corneal injury (Resolved) Diverticulitis large intestine (Resolved) Hypertensive urgency (Resolved) Muscle cramps (Resolved) Right wrist pain (Resolved) S/P colonoscopy (Resolved) The patient is a 69 year old F with history of acute chest pain and acute kidney injury for which she was admitted in August 2019 and had PCI in mid RCA in June 2018 brought in by EMS for shortness of breath. In ED, patient was afebrile, heart rate in 70s, blood pressure 124/57, intubated currently on 50% FiO2 Chest x-ray independently reviewed shows patchy right basilar opacity. EKG shows normal sinus rhythm at 72 bpm. QTc 451 ms. 1. Acute hypoxic and hypercarbic respiratory failure probably secondary to pneumonia possible COPD exacerbation: ABG postintubation, 7.25/60 2/180 on 70% FiO2. Currently on 50% FiO2. Campus Security Officer has been informed. Vent setting management as per ruby on rails engineer. 2. Right lower lobe pneumonia: Patient is started empirically on broad-spectrum antibiotic vancomycin and Zosyn. Panculture with blood cultures x2, respiratory panel, UA with urine culture, and sputum culture ordered. 3. Possible COPD, obstructive sleep apnea: Patient quit smoking 25 years ago, possibly started in teenage therefore about 25 pack years of smoking. Bronchodilator, IV Solu-Medrol, chest physiotherapy. 4. Recent atypical chest pain with proximal LAD and stenting June 2018. Patient had recent left heart cath which failed to demonstrate any obstructive lesion. During recent admission, non-STEMI was ruled out with 3 NEGATIVE serial troponin enzymes. 5. Recent acute kidney injury suspected due to contrast-induced nephropathy after left heart cath: This was managed with IV fluid, seen by abstract checker and kidney function improved. Today BUN/creatinine 12/1.16. It was 27/1.6 at time of discharge on 09/07. 6. Hypertension blood pressure controlled. 7. Diabetes mellitus type II: Last A1c 9.5% on June 2018. Uncontrolled with hyperglycemia. Accu-Cheks and cover with Humalog sliding scale insulin. 8. Dyslipidemia patient is on statin therapy, continued at home dose 9. Chronic diastolic congestive heart failure Last echo on 09/03/2019 Interpretation Summary The estimated ejection fraction is 65 %. Stage 2 diastolic dysfunction. Trivial mitral valve insufficiency. Mild (1+) eccentric tricuspid valve insufficiency. Right ventricular systolic pressure estimated to be 51 mmHg. Moderate pulmonary hypertension. There is no comparison study available. 10. Obesity with BMI of 38.2 11. Peripheral arterial disease ?Patient had left peroneal and proximal left posterior tibial angioplasty and left superficial femoral atherectomy and angioplasty 02/28/19 12. DVT prophylaxis ?Lovenox 40 mg subcu daily. Advance directive/living will: Patient does not have advanced living will. Next of kin her friend, Ms. Goldsmith, Luci whom I talked to. Currently she is intubated on ventilator. Full code. Continue CPR, central venous catheter insertion or vasopressor if needed, DC shock and tube feeding. Full code. Total time spent in [id number] encounter in discussion of advanced directive 16 minutes. Laboratory Results 09/18/19 17:06: Sodium 141, Potassium 4.2, Chloride 110 H, Carbon Dioxide 27.0, Anion Gap 4 L, BUN 12, Creatinine 1.16 H, Estim Creat Clear Calc 45.52, Est GFR (MDRD) Af Amer 59 L, Est GFR (MDRD) Non-Af 49 L, BUN/Creatinine Ratio 10.3, Glucose 100, Calcium 8.9, Troponin I 0.019 09/18/19 17:15: WBC 13.1 H, RBC 3.79 L, Hgb 9.7 L, Hct 32.8 L, MCV 86.5, MCH 25.6 L, MCHC 29.6 L, RDW Std Deviation 48.7 H, RDW Coeff of [place] 15.3 H, Plt Count 213, MPV 10.4, Immature Gran % (Auto) 1.200 H, Neut % (Auto) 78.2 H, Lymph % (Auto) 11.6 L, [place] % (Auto) 5.9, Eos % (Auto) 2.9, Baso % (Auto) 0.2, Absolute Neuts (auto) 10.2 H, Absolute Lymphs (auto) 1.51, Nucleated RBC % 0 09/18/19 17:15: B-Natriuretic Peptide 156.4 H 09/18/19 17:30: Lactic Acid 1.4 09/18/19 17:40: Specimen Type ART, Sample Site L Brachial, pH 7.25 L, Bicarbonate Actual 27.6 H, POC Total CO2 30, Base Excess 0, O2 Saturation 99, O2 % 70, ABG pCO2 62.5 H, ABG pO2 180 H, Respiration Rate 12, O2 Delivery Device Vent, Vent Mode A-C, Tidal Volume 450, POC PEEP 5, Blood Gas Notified Whom ED MD, Blood Gas Notified Time 1732 Clinical Impression(s) from Imaging Studies Chest X-Ray 09/18/19 17:05 IMPRESSION: Lines and tubes as above. Patchy right basilar opacity is nonspecific and may represent pneumonia in the appropriate clinical setting. Inpatient E&M: 22805 Init Hosp L3 Procedures: 65985 Advncd Care Plan 30 Min
[2019-09-18 18:04] LABS: Lactic Acid 1.4 mmol/L (0.4-1.9)
[2019-09-18] MEDS: MethylPREDNISolone 125 MG/2 ML Vial IV (19:20)
[2019-09-18] MEDS: 0.9% Normal Saline 1,000 ML 100 ML IV (20:07)
[2019-09-18 20:10] LABS: Magnesium 2.1 mg/dL (1.6-2.6)
[2019-09-18 20:16] LABS: Base Excess 1 mmol/L (-2 to +2); Bicarbonate 25.8 mmol/L (22-26); Blood Gas Specimen Type ART; FI02 60; Mode A-C; O2 Delivery Device Vent; PEEP 5; PO2 170 mmHG (75-100); RR 14; SITE L Radial; SO2 99 % (95-99); Total Carbon Dioxide 27 mmol/L; Vt 450; pCO2 43.4 mmHg (35-45); pH 7.38 (7.35-7.45)
--- NOTE | 2019-09-18 20:20 | PCM.RX.CS ---
Consult Pharmacy has been consulted to manage selected antiobiotic: Vancomycin Type of Consult: New start Labs: Sodium 141 mmol/L (136-145) 09/18/19 17:06 Potassium 4.2 mmol/L (3.5-5.1) 09/18/19 17:06 Chloride 110 mmol/L (98-107) H 09/18/19 17:06 Carbon Dioxide 27.0 mmol/L (21.0-32.0) 09/18/19 17:06 Anion Gap 4 (5-15) L 09/18/19 17:06 BUN 12 mg/dL (7-18) 09/18/19 17:06 Creatinine 1.16 mg/dL (0.55-1.02) H 09/18/19 17:06 Est GFR (MDRD) Af Amer 59 mL/min (>60) L 09/18/19 17:06 Est GFR (MDRD) Non-Af 49 mL/min (>60) L 09/18/19 17:06 BUN/Creatinine Ratio 10.3 RATIO (-) 09/18/19 17:06 Glucose 100 mg/dL (74-106) 09/18/19 17:06 Weight used for dosin kg Estimated Creatinine Clearance: 42 mL/min Goal Trough: 15-20 mcg/mL Pharmacy Plan for Drug Dosing: Vancomycin 1750mg IV x1 given in ED. 750mg IV q12h with trough prior to 4th dose per policy. Pharmacy Service will continue to monitor and adjust dosing as required. Follow-Up Labs: Trough Vancomycin - 09/19 @ 0630
--- NOTE | 2019-09-18 20:40 | CPS ---
lavaged and suctioned to obtain sputum sample
[2019-09-18] MEDS: Atorvastatin Calcium 10 MG Tablet PO (22:55)
[2019-09-18] MEDS: Lisinopril 20 MG Tablet PO (22:55)
[2019-09-18 23:26] LABS: Bedside Glucose 101 mg/dL (70-110)
[2019-09-19] VITALS (43 sets, daily range): BP systolic 110–162; BP diastolic 54–108; PULSE 63–88; RESP 14–22; TEMP 36.2–37.6; O2SAT 95–100
[2019-09-19 02:46] LABS: Probe Check PASS
[2019-09-19 02:47] LABS: M R Staph aureus DNA By PCR POSITIVE (Negative)
[2019-09-19] MEDS: Ipratropium/Albuterol Sulfate 3 ML AMPUL.NEB INHALATION ×6 (03:05→22:40)
[2019-09-19] MEDS: Propofol 10MG/Ml 1,000 MG/100 ML Bottle 13.1 MG CONT INF (03:30)
[2019-09-19 03:33] LABS: Absolute Lymphocyte Count 1.19 X10^3/uL (0.83-4.51); Absolute Neutrophil Count 16.2 X10^3/uL (2.0-7.7); Basophil# 0.04 X10^3/uL; Basophil% 0.2 % (0-1); Eosinophil# 0.05 X10^3/uL; Eosinophils% 0.3 % (0-5); Hematocrit 34.7 % (37-47); Hemoglobin 10.8 g/dL (12.0-15.0); Lymphocyte # 1.19 X10^3/ul (4.0); Lymphocyte % 6.6 % (19-41); Mean Corp Hgb Conc 31.1 g/dL (32-36); Mean Corpuscular Hgb 26.1 pg (27.0-32.0); Mean Corpuscular Volume 83.8 fL (81-99); Mean Platelet Vol. 10.5 fl (6.2-12.0); Monocyte% 1.7 % (0-10); NRBC Flagged by Analyzer 0 % (0-5); Neutrophil # 16.24 X10^3/uL (2.7-7.7); Neutrophil % 90.1 % (47-70); Platelet Count 227 K/mm3 (150-450); RBC Distribution Width CV 15.5 % (11.6-14.6); RBC Distribution Width SD 46.1 fl (35.1-43.9); Red Blood Count 4.14 M/mm3 (4.2-5.4)
[2019-09-19 05:04] LABS: AST(SGOT) 20 U/L (15-37); Alanine Aminotransfer ALT/SGPT 24 U/L (13-56); Albumin, Serum 2.9 g/dL (3.2-5.0); Alkaline Phosphatase 63 U/L (45-117); Anion Gap 10 (5-15); BUN 14 mg/dL (7-18); BUN/Creat Ratio 12.5 RATIO (10-20); Bilirubin, Direct 0.17 mg/dL (0.00-0.30); Calcium,Total 8.3 mg/dL (8.5-10.1); Chloride 111 mmol/L (98-107); Creatinine, Serum 1.12 mg/dL (0.55-1.02); EST Glomerular Filtration Rate 51 mL/min (>60); Est Glom Filt Rate - Afr Amer 62 mL/min (>60); Estimated Creatinine Clearance 43.75 ml/min; Globulin 3.9 g/dL (2.2-4.2); Glucose 170 mg/dL (74-106); Potassium 4.1 mmol/L (3.5-5.1); Protein, Total 6.8 g/dL (6.4-8.2); Sodium Level 142 mmol/L (136-145); Thyroid Stim Hormone (TSH) 0.44 uIU/mL (0.358-3.74)
[2019-09-19] MEDS: TITRATION PARAMETER CHANGE 1 EACH IV (06:07)
[2019-09-19 06:26] LABS: Bedside Glucose 201 mg/dL (70-110)
--- NOTE | 2019-09-19 06:27 | CON.PCM_ITS ---
Reason for Consult Date of Consultation: 09/19/19 Reason for Consultation: Acute combined respiratory failure History of Present Illness: The patient is a 69-year-old female, with a history as outlined below, who presented to the emergency department on September 17 with complaints of rather acute onset shortness of breath. The patient was recently admitted to the hospital September 03- after having presented to the hospital with shortness of breath as well. The patient was subsequently evaluated by cardiology and underwent catheterization with drug-eluting stent placement to the mid RCA. Her hospital course was complicated by the development of contrast-induced nephropathy. She does have a prior smoking history of 0.5 packs/day x 20 years, having quit smoking completely in 1998. She has never been formally diagnosed with COPD or asthma in the past. She has underlying heart failure with preserved ejection fraction as well. CTA chest obtained during her previous hospitalization did reveal evidence of bilateral emphysematous changes. In addition, she had findings and symptoms during her prior hospitalization concerning for underlying sleep disordered breathing. The patient was instructed to follow-up in the pulmonary medicine clinic upon discharge from the hospital. She is currently scheduled to be seen on September 20. On presentation to the emergency department, the patient was noted to be afebrile and hemodynamically stable. The patient did arrive to the emergency d epartment in al[place] respiratory distress. She was emergently intubated on arrival. Laboratory evaluation revealed an elevated white blood cell count to 13,000. Arterial blood gas obtained immediately after intubation revealed a pH of 7.25 with a corresponding PCO2 of 62 and PO2 of 180. Chemistry profile was notable for a creatinine of 1.16, which is actually better than her previous documented creatinine. Troponin was negative. BNP was only mildly elevated to 156. Lactate was within normal limits. MRSA screen was positive. Plain film chest x-ray revealed a right basilar airspace opacity. The patient was placed on broad-spectrum antimicrobials and subsequently admitted to the medical intensive care unit for further management. Past Medical History Past Medical History (Chronic Problems): Chronic Problems (Last Updated 09/04/19 @ 09:25 by Yue Holley) Atherosclerosis of coronary artery of [place] heart without angina pectoris (Chronic) History of coronary artery stent placement (Chronic 09/03/19) [id number] LAD w/ a 3.0 x 38 mm Synergy Stent 06/23/18; PTCA/SIVAN of mid RCA with a 2.25 x 38 Promus Synergy 09/03/2019 Chronic diastolic CHF (congestive heart failure) (Chronic) Peripheral vascular occlusive disease (Chronic) left peroneal and proximal left posterior tibial angioplasty and left superficial femoral atherectomy and angioplasty 02/28/19 Claudication (Chronic) Essential (primary) hypertension (Chronic) Hyperlipidemia (Chronic) Medical History: Medical History (Last Updated 09/04/19 @ 09:25 by Yue Holley) Atherosclerosis of coronary artery of [place] heart without angina pectoris (Chronic) I25.10 Non-ST elevation (NSTEMI) myocardial infarction (Resolved) Onset Date: 06/22/18 I21.4 Chronic diastolic CHF (congestive heart failure) (Chronic) I50.32 Peripheral vascular occlusive disease (Chronic) I73.9 left peroneal and proximal left posterior tibial angioplasty and left superficial femoral atherectomy and angioplasty 02/28/19 Claudication (Chronic) I73.9 Essential (primary) hypertension (Chronic) I10 Hyperlipidemia (Chronic) E78.5 Anxiety F41.9 Back problem M53.9 Chronic kidney disease (CKD) N18.9 Diabetes mellitus, type II E11.9 Hepatitis K75.9 Obesity E66.9 PAD (peripheral artery disease) I73.9 Acute diastolic (congestive) heart failure (Resolved) I50.31 Corneal injury (Resolved) S05.8X9A Diabetes type 2, controlled E11.9 Dx : 1997 Last exacerbation : DKA : never Hypoglycemic episode : never ER visit : never Right wrist pain (Resolved) M25.531 Abnormal ultrasound of lower extremity (Inactive) R93.6 Allergies acetaminophen [From [place]] Allergy (Verified 09/02/19 23:47) Other hydrocodone [From [place]] Allergy (Verified 09/02/19 23:47) Other metformin Allergy (Verified 09/02/19 23:47) Unknown Home Medications: Ambulatory Orders Medication Instructions Recorded insulin aspart U-100 100 unit/mL 10 unit SC TIDCM ml 07/26/17 (3 mL) subcutaneous pen Nitroglycerin (INPATIENT USE) 0.4 mg SUBLINGUAL Q5M PRN 06/22/18 [Nitrostat] Tizanidine HCl [Zanaflex] 4 mg PO Q8H PRN #10 tab 03/27/19 Isosorbide Mononitrate [Isosorbide 60 mg PO DAILY 08/31/19 Mononitrate ER] Albuterol Inhaler [Ventolin Hfa 2 puff INHALATION Q4H PRN PRN 09/18/19 (SP)] Amlodipine [Norvasc] 10 mg PO DAILY 09/18/19 Clopidogrel Bisulfate [Clopidogrel] 75 mg PO DAILY 09/18/19 Isosorbide Mononitrate [Imdur] 30 mg PO BID 09/18/19 Lisinopril 20 mg PO BID 09/18/19 Metoprolol Succinate [Toprol Xl] 50 mg PO DAILY 09/18/19 Simvastatin 20 mg PO QHS 09/18/19 traMADol [Ultram (G)] 50 mg PO BID PRN PRN 09/18/19 Surgical History: Surgical History (Last Updated 09/04/19 @ 09:10 by Sadie Frazier) History of coronary artery stent placement (Chronic) Onset Date: 09/03/19 Z95.5 [id number] LAD w/ a 3.0 x 38 mm Synergy Stent 06/23/18; PTCA/SIVAN of mid RCA with a 2.25 x 38 Promus Synergy 09/03/2019 History of total abdominal hysterectomy Z98.890, Z90.710 History of angioplasty of peripheral vessel Onset Date: 02/28/19 Z98.62 left peroneal and proximal left posterior tibial angioplasty and left superficial femoral atherectomy and angioplasty 02/28/19 S/P colonoscopy (Resolved) Z98.890 Surgical History: - - Total abdominal hysterectomy, PCI x1, angioplasty left lower extremity, right rotator cuff repair, left knee arthroscopic surgery. Psychiatric History: Anxiety, Depression [employer] History: No pertinent [employer] history Smoking Status: Former smoker - *Family History Maternal Family History: Family History (Last Reviewed 09/03/19 @ 07:[address] Ashan Jean MD) Mother Arthritis Father Arthritis History Items: Heart Disease Paternal Family History: Family History (Last Reviewed 09/03/19 @ 07:[address] Ahsan Jean MD) Mother Arthritis Father Arthritis History Items: - - Patient denies any market paternal family history including heart disease, diabetes or cancer. Review of Systems Unable to obtain accurate/complete ROS d/t: Due to current intubation and mechanical ventilation status. Patient Problems: Active and Suspected Problems (Last Updated 09/04/19 @ 09:25 by Yue Kilner) Acute respiratory failure with hypoxia and hypercapnia (Acute) Right lower lobe pneumonia (Acute) Severe sepsis (Acute) Objective: The patient's most recent lab work, culture data and imaging studies have all been personally reviewed. Strep and urine Legionella antigens were negative. Respiratory viral panel is pending. Blood and sputum cultures are pending. Surface echocardiogram from September 03 revealed an ejection fraction of 65% and stage II diastolic dysfunction. Right ventricular systolic pressure was estimated to be 51 mmHg. - Physical Exam Vitals/I&O's: Vital Signs Temp Pulse Resp BP Pulse Ox 98.8 F 77 15 144/108 H 100 09/19/19 06:00 09/19/19 06:00 09/19/19 06:00 09/19/19 06:00 09/19/19 06:00 Oxygen Delivery Method Mechanical Ventilator Weight: 190 lb 14.725 oz Body Mass Index (BMI) 30.4 Finger Stick Blood Glucose 92 Intake and Output for Last 24 Hours 09/17/19 09/18/19 09/19/19 23:59 23:59 23:59 Intake Total 683.01 / 686.29 1131.89 / 1131.89 Output Total 350 / 350 Balance 683.01 / 486.29 781.89 / 781.89 General: - - Intubated, sedated mechanically ventilated. HEENT: Atraumatic, PERRLA, Normocephalic Oral: No Gingival or Mucosal Lesions/ Ulcerations, - - Endotracheal and OG tubes in place Neck: Supple, No Nodes, Trachea Midline Lungs: No rhonchi, No wheeze, No rales, Diminished Cardiovascular: Regular rate, Regular Rhythm, Normal S1, Normal S2 Abdomen: Bowel Sounds Present, Soft, Non Tender, Obese Extremities: No clubbing, No cyanosis Skin: No breakdown Musculoskeletal: No Tenderness to Palpation of Joints or Extremities Lymphatic: No Cervical, Supraclavicular, or Inguinal Adenopathy Neurological: - - No focal neurological deficits. Currently sedated on the vent. Labs (Last 48 Hours) 09/18/19 09/18/19 09/18/19 17:06 17:06 17:15 WBC 13.1 H RBC 3.79 L Hgb 9.7 L Hct 32.8 L MCV 86.5 MCH 25.6 L MCHC 29.6 L RDW Std Deviation 48.7 H RDW Coeff of [place]sey 15.3 H Plt Count 213 MPV 10.4 Immature Gran % (Auto) 1.200 H Neut % (Auto) 78.2 H Lymph % (Auto) 11.6 L [place] % (Auto) 5.9 Eos % (Auto) 2.9 Baso % (Auto) 0.2 Absolute Neuts (auto) 10.2 H Absolute Lymphs (auto) 1.51 Nucleated RBC % 0 Specimen Type Sample Site pH Bicarbonate Actual POC Total CO2 Base Excess O2 Saturation O2 % ABG pCO2 ABG pO2 Respiration Rate O2 Delivery Device Vent Mode Tidal Volume POC PEEP Blood Gas Notified Whom Blood Gas Notified Time Sodium 141 Potassium 4.2 Chloride 110 H Carbon Dioxide 27.0 Anion Gap 4 L BUN 12 Creatinine 1.16 H Estim Creat Clear Calc 45.52 Est GFR (MDRD) Af Amer 59 L Est GFR (MDRD) Non-Af 49 L BUN/Creatinine Ratio 10.3 Glucose 100 Lactic Acid Calcium 8.9 Magnesium 2.1 Total Bilirubin Direct Bilirubin AST ALT Alkaline Phosphatase Troponin I 0.019 B-Natriuretic Peptide Total Protein Albumin Globulin TSH MRSA (PCR) POC Glucose 09/18/19 09/18/19 09/18/19 17:15 17:30 17:40 WBC RBC Hgb Hct MCV MCH MCHC RDW Std Deviation RDW Coeff of [place]sey Plt Count MPV Immature Gran % (Auto) Neut % (Auto) Lymph % (Auto) [place] % (Auto) Eos % (Auto) Baso % (Auto) Absolute Neuts (auto) Absolute Lymphs (auto) Nucleated RBC % Specimen Type ART Sample Site L Brachial pH 7.25 L Bicarbonate Actual 27.6 H POC Total CO2 30 Base Excess 0 O2 Saturation 99 O2 % 70 ABG pCO2 62.5 H ABG pO2 180 H Respiration Rate 12 O2 Delivery Device Vent Vent Mode A-C Tidal Volume 450 POC PEEP 5 Blood Gas Notified Whom ED MD Blood Gas Notified Time 1735 Sodium Potassium Chloride Carbon Dioxide Anion Gap BUN Creatinine Estim Creat Clear Calc Est GFR (MDRD) Af Amer Est GFR (MDRD) Non-Af BUN/Creatinine Ratio Glucose Lactic Acid 1.4 Calcium Magnesium Total Bilirubin Direct Bilirubin AST ALT Alkaline Phosphatase Troponin I B-Natriuretic Peptide 156.4 H Total Protein Albumin Globulin TSH MRSA (PCR) POC Glucose 09/18/19 09/18/19 09/18/19 20:10 21:27 23:00 WBC RBC Hgb Hct MCV MCH MCHC RDW Std Deviation RDW Coeff of [place]sey Plt Count MPV Immature Gran % (Auto) Neut % (Auto) Lymph % (Auto) [place] % (Auto) Eos % (Auto) Baso % (Auto) Absolute Neuts (auto) Absolute Lymphs (auto) Nucleated RBC % Specimen Type ART Sample Site L Radial pH 7.38 Bicarbonate Actual 25.8 POC Total CO2 27 Base Excess 1 O2 Saturation 99 O2 % 60 ABG pCO2 43.4 ABG pO2 170 H Respiration Rate 14 O2 Delivery Device Vent Vent Mode A-C Tidal Volume 450 POC PEEP 5 Blood Gas Notified Whom [facility] Blood Gas Notified Time Sodium Potassium Chloride Carbon Dioxide Anion Gap BUN Creatinine Estim Creat Clear Calc Est GFR (MDRD) Af Amer Est GFR (MDRD) Non-Af BUN/Creatinine Ratio Glucose Lactic Acid Calcium Magnesium Total Bilirubin Direct Bilirubin AST ALT Alkaline Phosphatase Troponin I < 0.015 B-Natriuretic Peptide Total Protein Albumin Globulin TSH MRSA (PCR) POSITIVE H POC Glucose 09/18/19 09/19/19 09/19/19 23:09 00:00 03:14 WBC RBC Hgb Hct MCV MCH MCHC RDW Std Deviation RDW Coeff of [place]sey Plt Count MPV Immature Gran % (Auto) Neut % (Auto) Lymph % (Auto) [place] % (Auto) Eos % (Auto) Baso % (Auto) Absolute Neuts (auto) Absolute Lymphs (auto) Nucleated RBC % Specimen Type Sample Site pH Bicarbonate Actual POC Total CO2 Base Excess O2 Saturation O2 % ABG pCO2 ABG pO2 Respiration Rate O2 Delivery Device Vent Mode Tidal Volume POC PEEP Blood Gas Notified Whom Blood Gas Notified Time Sodium 142 Potassium 4.1 Chloride 111 H Carbon Dioxide 21.0 Anion Gap 10 BUN 14 Creatinine 1.12 H Estim Creat Clear Calc 43.75 Est GFR (MDRD) Af Amer 62 Est GFR (MDRD) Non-Af 51 L BUN/Creatinine Ratio 12.5 Glucose 170 H Lactic Acid Calcium 8.3 L Magnesium Total Bilirubin 0.70 Direct Bilirubin 0.17 AST 20 ALT 24 Alkaline Phosphatase 63 Troponin I 0.021 B-Natriuretic Peptide Total Protein 6.8 Albumin 2.9 L Globulin 3.9 TSH 0.44 MRSA (PCR) POC Glucose 101 09/19/19 09/19/19 09/19/19 03:14 03:14 06:21 WBC 18.0 H RBC 4.14 L Hgb 10.8 L Hct 34.7 L MCV 83.8 MCH 26.1 L MCHC 31.1 L D RDW Std Deviation 46.1 H RDW Coeff of [place]sey 15.5 H Plt Count 227 MPV 10.5 Immature Gran % (Auto) 1.100 H Neut % (Auto) 90.1 H Lymph % (Auto) 6.6 L [place] % (Auto) 1.7 Eos % (Auto) 0.3 Baso % (Auto) 0.2 Absolute Neuts (auto) 16.2 H Absolute Lymphs (auto) 1.19 Nucleated RBC % 0 Specimen Type Sample Site pH Bicarbonate Actual POC Total CO2 Base Excess O2 Saturation O2 % ABG pCO2 ABG pO2 Respiration Rate O2 Delivery Device Vent Mode Tidal Volume POC PEEP Blood Gas Notified Whom Blood Gas Notified Time Sodium Potassium Chloride Carbon Dioxide Anion Gap BUN Creatinine Estim Creat Clear Calc Est GFR (MDRD) Af Amer Est GFR (MDRD) Non-Af BUN/Creatinine Ratio Glucose Lactic Acid Calcium Magnesium Total Bilirubin Direct Bilirubin AST ALT Alkaline Phosphatase Troponin I < 0.015 B-Natriuretic Peptide Total Protein Albumin Globulin TSH MRSA (PCR) POC Glucose 201 H Microbiology 09/18/19 20:15 Urine Catheter - [place] Streptococcus pneumoniae Antigen (M - Final 09/18/19 20:15 Urine Catheter - [place] Legionella Antigen - Final Clinical Impression(s) from Imaging Studies Chest X-Ray 09/18/19 17:05 IMPRESSION: Lines and tubes as above. Patchy right basilar opacity is nonspecific and may represent pneumonia in the appropriate clinical setting. Electronically Signed: Graeme Gardner, at 17:45 EDT Tel , Service support , Current Medications Acetaminophen (Tylenol) 650 mg RECTAL Q4H PRN PRN PRN Reason: Pain Score 1-10/Temp > 100.7 F Albuterol Sulfate (Ventolin Aerosols) 2.5 mg INHALATION Q2H PRN PRN PRN Reason: SOB/Wheezing Albuterol/Ipratropium (Duoneb) 3 ml INHALATION Q4H.RT MÓNICA Last Admin: 09/19/19 03:05 Dose: 3 ml Documented by: Amlodipine Besylate (Norvasc) 10 mg PO DAILY [facility] Atorvastatin Calcium (Lipitor) 10 mg PO QHS [facility] Last Admin: 09/18/19 22:55 Dose: 10 mg Documented by: Clopidogrel Bisulfate (Plavix) 75 mg PO DAILY [facility] Dextrose (D50w Syringe) 0 gm IV X1 PRN; Protocol PRN Reason: Hypoglycemia Glucagon () 1 mg IM .X1 PRN PRN Reason: Hypoglycemia Propofol (Diprivan) 1,000 mg in 100 mls @ 5.196 mls/hr CONT INF .Q12H [facility]; Protocol Last Titration: 09/19/19 06:00 Dose: 20 mcg/kg/min, 10.4 mls/hr Documented by: Piperacillin Sod/Tazobactam (Sod 3.375 gm/ Sodium Chloride) 50 mls @ 12.5 mls/hr IV Q8 [facility] Stop: 09/25/19 22:01 Last Admin: 09/19/19 05:37 Dose: 12.5 mls/hr Documented by: Vancomycin IV Pharmacy to Dose (1 ea/ Sodium Chloride) 500 mls @ 250 mls/hr IV PRN PRN; Protocol Sodium Chloride () 250 mls @ 15 mls/hr IV .[id number] PRN PRN Reason: Saline Flush Sodium Chloride () 250 mls @ 15 mls/hr IV .[id number] PRN PRN Reason: Additional IVPB Infusion Vancomycin HCl 750 mg/ Sodium (Chloride) 265 mls @ 250 mls/hr IV Q12H [facility] Fentanyl () 100 mls @ 2.5 mls/hr IV UD [facility]; Protocol Insulin Human Lispro (Humalog Kwikpen (Bkc)) 0 unit SC ACHS [facility]; Protocol Last Admin: 09/18/19 22:55 Dose: Not Given Documented by: Isosorbide Mononitrate (Imdur) 60 mg PO DAILY [facility] Lisinopril (Zestril) 20 mg PO BID [facility] Last Admin: 09/18/19 22:55 Dose: 20 mg Documented by: Metoprolol Succinate (Toprol Xl (Beta Stefanie)) 50 mg PO DAILY [facility] Morphine Sulfate () 2 mg IV Q3H PRN PRN PRN Reason: Pain Score 4-10/10 Nitroglycerin (Nitrostat) 0.4 mg SUBLINGUAL Q5M PRN PRN Reason: CARDIAC/CHEST PAIN Prochlorperazine Edisylate (Compazine Iv) 5 mg IV Q4H PRN PRN PRN Reason: Breakthrough Nausea/Vomiting Senna/Docusate Sodium (Senokot-S, Jennifer-Colace) 2 tablet NG BID PRN PRN Reason: Constipation Sodium Chloride () 10 - 40 ml IV UD PRN PRN Reason: SALINE FLUSH Tizanidine HCl (Zanaflex) 4 mg PO Q8H PRN PRN PRN Reason: Muscle Spasm Tramadol HCl (Ultram) 50 mg PO BID PRN PRN PRN Reason: NOT SPECIFIED Assessment/Plan Active and Suspected Problems (Last Updated 09/04/19 @ 09:25 by Yue Holley) Acute respiratory failure with hypoxia and hypercapnia (Acute) Right lower lobe pneumonia (Acute) Severe sepsis (Acute) RECOMMENDATIONS: 1. Continue empiric antimicrobials, pending infectious work-up. 2. Wean FiO2 to maintain oxygen saturations at or above 90%. 3. Continue scheduled bronchodilators. 4. Start tube feeds today. 5. Continue propofol and fentanyl for sedation. 6. Plan for paired spontaneous awakening and breathing trials beginning tomorrow. 7. Continue appropriate ICU prophylaxis. IMPRESSIONS: 1. Acute combined respiratory failure Appears to be most likely secondary to healthcare associated pneumonia along with possible obstructive lung disease with exacerbation. The patient will be continued on current supportive measures including invasive mechanical ventilatory support along with broad-spectrum antimicrobials, pending infectious work-up. The patient will also be continued on scheduled bronchodilators as well. FiO2 will be weaned to maintain oxygen saturations at or above 90%. Tube feeds can be initiated today from my perspective. Propofol and fentanyl will be continued for sedation. Plan to begin spontaneous awakening and breathing trials beginning tomorrow. 2. Possible sleep disordered breathing During the patient's previous hospitalizations he was identified as being high risk for sleep apnea. Therefore, once she has been successfully extubated, she will be placed empirically on nocturnal BiPAP therapy. Outpatient diagnostic polysomnogram is recommended. 3. Coronary artery disease status post recent PCI/heart failure with preserved ejection fraction/pulmonary hypertension Continue baseline cardiac medications. 4. Obesity/diabetes mellitus/hyperlipidemia/peripheral arterial disease Complicates care, management, recovery and prognosis. Continue sliding scale insulin coverage. Physical therapy to work with the patient. TIME: 40 minutes of critical care time, independent of procedures, was spent addressing the patient's acute combined respiratory failure, possible sleep disordered breathing, coronary artery disease, heart failure with preserved ejection fraction, pulmonary hypertension, review of all data and collaboration with the care team. ([id number]) [id number] Critical care first hour
[2019-09-19] MEDS: Insulin Lispro 100 UNIT/ML INSULN.PEN SC ×4 (06:28→23:21)
[2019-09-19] MEDS: fentaNYL drip 100 ML 2.5 MCG IV (06:30)
--- NOTE | 2019-09-19 07:52 | PCM.PN.HOSP ---
Patient Problems: Active and Suspected Problems (Last Updated 09/04/19 @ 09:25 by Yue Holley) Acute respiratory failure with hypoxia and hypercapnia (Acute) Right lower lobe pneumonia (Acute) Severe sepsis (Acute) Reason for Visit: Acute respiratory failure Subjective: Patient is a 69-year-old lady admitted with progressive shortness of breath and assessment of acute hypoxic and hypercapnic respiratory failure made patient intubated in the ED and admitted to the intensive care unit Objective: GENERAL: Awake on the vent HEENT: Atraumatic; EYES; Anicteric, Normal Conjunctiva NECK; supple, normal thyroid, RESPIRATORY: Diminished to auscultation CARDIOVASCULAR: Regular S1 S2, GI: soft, normoactive bowel sounds, : No Renal angle tenderness; EXTREMITIES: No edema, no clubbing, MUSCULOSKELETAL: no muscle waisting NEURO: On The vent SKIN: No Rash PSYCH; unable to assess Vitals/I&O's: Vital Signs Temp Pulse Resp BP Pulse Ox 99.3 F H 83 16 158/68 H 100 09/19/19 07:00 09/19/19 07:29 09/19/19 07:00 09/19/19 07:00 09/19/19 07:00 Oxygen Delivery Method Mechanical Ventilator Weight: 86.6 kg Body Mass Index (BMI) 30.4 Finger Stick Blood Glucose 92 Intake and Output for Last 24 Hours 09/17/19 09/18/19 09/19/19 23:59 23:59 23:59 Intake Total 683.01 / 686.29 1143.54 / 1143.54 Output Total 350 / 350 Balance 683.01 / 486.29 793.54 / 793.54 Microbiology Past 72 Hours 09/18/19 20:15 Urine Catheter - [place] Streptococcus pneumoniae Antigen (M - Final 09/18/19 20:15 Urine Catheter - [place] Legionella Antigen - Final Laboratory Results 09/18/19 17:06: Sodium 141, Potassium 4.2, Chloride 110 H, Carbon Dioxide 27.0, Anion Gap 4 L, BUN 12, Creatinine 1.16 H, Estim Creat Clear Calc 45.52, Est GFR (MDRD) Af Amer 59 L, Est GFR (MDRD) Non-Af 49 L, BUN/Creatinine Ratio 10.3, Glucose 100, Calcium 8.9, Troponin I 0.019 09/18/19 17:06: Magnesium 2.1 09/18/19 17:15: WBC 13.1 H, RBC 3.79 L, Hgb 9.7 L, Hct 32.8 L, MCV 86.5, MCH 25.6 L, MCHC 29.6 L, RDW Std Deviation 48.7 H, RDW Coeff of Chelsey 15.3 H, Plt Count 213, MPV 10.4, Immature Gran % (Auto) 1.200 H, Neut % (Auto) 78.2 H, Lymph % (Auto) 11.6 L, [place] % (Auto) 5.9, Eos % (Auto) 2.9, Baso % (Auto) 0.2, Absolute Neuts (auto) 10.2 H, Absolute Lymphs (auto) 1.51, Nucleated RBC % 0 09/18/19 17:15: B-Natriuretic Peptide 156.4 H 09/18/19 17:30: Lactic Acid 1.4 09/18/19 17:40: Specimen Type ART, Sample Site L Brachial, pH 7.25 L, Bicarbonate Actual 27.6 H, POC Total CO2 30, Base Excess 0, O2 Saturation 99, O2 % 70, ABG pCO2 62.5 H, ABG pO2 180 H, Respiration Rate 12, O2 Delivery Device Vent, Vent Mode A-C, Tidal Volume 450, POC PEEP 5, Blood Gas Notified Whom ED , Blood Gas Notified Time 1735 09/18/19 20:10: Specimen Type ART, Sample Site L Radial, pH 7.38, Bicarbonate Actual 25.8, POC Total CO2 27, Base Excess 1, O2 Saturation 99, O2 % 60, ABG pCO2 43.4, ABG pO2 170 H, Respiration Rate 14, O2 Delivery Device Vent, Vent Mode A-C, Tidal Volume 450, POC PEEP 5, Blood Gas Notified Whom HOSP 09/18/19 21:27: Troponin I < 0.015 09/18/19 23:00: MRSA (PCR) POSITIVE H 09/18/19 23:09: POC Glucose 101 09/19/19 00:00: Troponin I 0.021 09/19/19 03:14: Sodium 142, Potassium 4.1, Chloride 111 H, Carbon Dioxide 21.0, Anion Gap 10, BUN 14, Creatinine 1.12 H, Estim Creat Clear Calc 43.75, Est GFR (MDRD) Af Amer 62, Est GFR (MDRD) Non-Af 51 L, BUN/Creatinine Ratio 12.5, Glucose 170 H, Calcium 8.3 L, Total Bilirubin 0.70, Direct Bilirubin 0.17, AST 20, ALT 24, Alkaline Phosphatase 63, Total Protein 6.8, Albumin 2.9 L, Globulin 3.9, TSH 0.44 09/19/19 03:14: WBC 18.0 H, RBC 4.14 L, Hgb 10.8 L, Hct 34.7 L, MCV 83.8, MCH 26.1 L, MCHC 31.1 L D, RDW Std Deviation 46.1 H, RDW Coeff of Chelsey 15.5 H, Plt Count 227, MPV 10.5, Immature Gran % (Auto) 1.100 H, Neut % (Auto) 90.1 H, Lymph % (Auto) 6.6 L, [place] % (Auto) 1.7, Eos % (Auto) 0.3, Baso % (Auto) 0.2, Absolute Neuts (auto) 16.2 H, Absolute Lymphs (auto) 1.19, Nucleated RBC % 0 09/19/19 03:14: Troponin I < 0.015 09/19/19 06:21: POC Glucose 201 H Current Medications Acetaminophen (Tylenol) 650 mg RECTAL Q4H PRN PRN PRN Reason: Pain Score 1-10/Temp > 100.7 F Albuterol Sulfate (Ventolin Aerosols) 2.5 mg INHALATION Q2H PRN PRN PRN Reason: SOB/Wheezing Albuterol/Ipratropium (Duoneb) 3 ml INHALATION Q4H.RT MÓNICA Last Admin: 09/19/19 07:32 Dose: 3 ml Documented by: Amlodipine Besylate (Norvasc) 10 mg GT DAILY [facility] Atorvastatin Calcium (Lipitor) 10 mg GT QHS [facility] Clopidogrel Bisulfate (Plavix) 75 mg GT DAILY [facility] Dextrose (D50w Syringe) 0 gm IV X1 PRN; Protocol PRN Reason: Hypoglycemia Enoxaparin Sodium (Lovenox) 40 mg SC DAILY [facility] Famotidine (Pepcid) 20 mg GT DAILY [facility] Glucagon () 1 mg IM .X1 PRN PRN Reason: Hypoglycemia Propofol (Diprivan) 1,000 mg in 100 mls @ 5.196 mls/hr CONT INF .Q12H [facility]; Protocol Last Titration: 09/19/19 07:00 Dose: 20 mcg/kg/min, 10.4 mls/hr Documented by: Piperacillin Sod/Tazobactam (Sod 3.375 gm/ Sodium Chloride) 50 mls @ 12.5 mls/hr IV Q8 [facility] Stop: 09/25/19 22:01 Last Admin: 09/19/19 05:37 Dose: 12.5 mls/hr Documented by: Vancomycin IV Pharmacy to Dose (1 ea/ Sodium Chloride) 500 mls @ 250 mls/hr IV PRN PRN; Protocol Sodium Chloride () 250 mls @ 15 mls/hr IV .[id number] PRN PRN Reason: Saline Flush Sodium Chloride () 250 mls @ 15 mls/hr IV .[id number] PRN PRN Reason: Additional IVPB Infusion Vancomycin HCl 750 mg/ Sodium (Chloride) 265 mls @ 250 mls/hr IV Q12H [facility] Fentanyl () 100 mls @ 2.5 mls/hr IV UD [facility]; Protocol Last Titration: 09/19/19 07:00 Dose: 25 mcg/hr, 2.5 mls/hr Documented by: Insulin Human Lispro (Humalog Kwikpen (Bkc)) 0 unit SC ACHS [facility]; Protocol Last Admin: 09/19/19 06:28 Dose: 4 u Documented by: Isosorbide Mononitrate (Imdur) 60 mg PO DAILY [facility] Lisinopril (Zestril) 20 mg GT BID [facility] Metoprolol Succinate (Toprol Xl (Beta Stefanie)) 50 mg PO DAILY [facility] Nitroglycerin (Nitrostat) 0.4 mg SUBLINGUAL Q5M PRN PRN Reason: CARDIAC/CHEST PAIN Prochlorperazine Edisylate (Compazine Iv) 5 mg IV Q4H PRN PRN PRN Reason: Breakthrough Nausea/Vomiting Senna/Docusate Sodium (Senokot-S, Jennifer-Colace) 2 tablet NG BID PRN PRN Reason: Constipation Sodium Chloride () 10 - 40 ml IV UD PRN PRN Reason: SALINE FLUSH STROKE Vital Signs/Narrative: Vital Signs Temp Pulse Resp BP Pulse Ox 09/19/19 07:29 83 09/19/19 07:00 99.3 F H 74 16 158/68 H 100 09/19/19 06:00 98.8 F 77 15 144/108 H 100 09/19/19 05:15 72 14 100 09/19/19 05:00 98.6 F 69 14 160/60 H 99 09/19/19 04:00 99.0 F 77 14 160/69 H 100 Medical Necessity - Tobacco Use Smoking Status: Former smoker Assessment/Plan All Active Problems (Last Updated 09/04/19 @ 09:10 by Sadie Frazier) Acute respiratory failure with hypoxia and hypercapnia (Acute) Right lower lobe pneumonia (Acute) Severe sepsis (Acute) Non-ST elevation (NSTEMI) myocardial infarction (Resolved 06/22/18) ACS (acute coronary syndrome) (Resolved) Acute diastolic (congestive) heart failure (Resolved) Cellulitis of buttock (Resolved) Chest pain (Resolved) Corneal injury (Resolved) Diverticulitis large intestine (Resolved) Hypertensive urgency (Resolved) Muscle cramps (Resolved) Right wrist pain (Resolved) S/P colonoscopy (Resolved) Patient is a 69-year-old lady admitted with progressive shortness of breath and assessment of acute hypoxic and hypercapnic respiratory failure made patient intubated in the ED and admitted to the intensive care unit 1. Acute hypoxic and hypercapnic respiratory failure ?Secondary to combination of pneumonia and COPD exacerbation patient was intubated prior to being admitted to the intensive care unit with consultation placed to compounding technician. 2. Community-acquired pneumonia ?Chest x-ray demonstrated right lower lobe pneumonia. Admitted to the intensive care unit where patient is currently being managed with broad-spectrum antibiotic therapy (vancomycin and Zosyn) after cultures have been taken. Patient was intubated as stated above. Vent management deferred to pulmonary medicine 3. COPD with acute exacerbation ?Management as discussed above in addition to use of systemic steroids 4. Chronic diastolic heart failure ?Echo obtained on 09/03/2019 demonstrated features consistent with diastolic dysfunction as well as ejection fraction of 65% 5. Pulmonary hypertension - Echo obtained on 09/03/2019 demonstrated Right ventricular systolic pressure estimated to be 51 mmHg consistent With Moderate pulmonary hypertension. 6. Coronary artery disease ?With history of previous PCI/SIVAN recent left heart catheterization on 09/04/2019 failed to demonstrate any hemodynamically significant lesions. 7. Hypertension - blood pressure controlled, home medications continued with dose adjustment as needed 8. Diabetes mellitus type II - Uncontrolled with hyperglycemia did continue with her long acting insulin, [id number] and covered with sliding scale insulin 9. Dyslipidemia - patient is on statin therapy, 10. Obesity with BMI of 38.2 ?Plan is to advise on weight loss following extubation 11. Peripheral arterial disease ?With previous left peroneal and proximal left posterior tibial angioplasty and left superficial femoral atherectomy and angioplasty 02/28/19 12. DVT prophylaxis ?Lovenox Clinical Impression(s) from Imaging Studies Chest X-Ray 09/18/19 17:05 IMPRESSION: Lines and tubes as above. Patchy right basilar opacity is nonspecific and may represent pneumonia in the appropriate clinical setting. Electronically Signed: Graeme Gardner, at 17:45 EDT Tel , Service support , Inpatient E&M: [id number] Subs Hosp L3
[2019-09-19] MEDS: Propofol 10MG/Ml 1,000 MG/100 ML Bottle 10.4 MG CONT INF ×2 (09:14→16:32)
[2019-09-19] MEDS: Clopidogrel Bisulfate 75 MG Tablet GT (09:15)
[2019-09-19] MEDS: Enoxaparin 40 MG/0.4 ML Syringe SC (09:15)
[2019-09-19] MEDS: Lisinopril 20 MG Tablet GT ×2 (09:15→21:16)
[2019-09-19] MEDS: Famotidine 20 MG Tablet GT (09:15)
[2019-09-19] MEDS: amLODIPine 10 MG Tablet GT (09:15)
[2019-09-19] MEDS: Chlorhexidine 15 ML PO ×2 (09:36→21:09)
[2019-09-19] MEDS: Metoprolol Tartrate 25 MG Tablet PO ×2 (09:37→21:15)
--- NOTE | 2019-09-19 10:36 | CASEMGMT ---
RN CM Readmission Note Previous Admission: 09/04/2019-09/07/2019 Diagnosis: Acute Kidney Injury, chest pain DC Disposition: Home with [facility] Appts for f/u made. Pt had appt with Dr. Adamson on 09.21.2019- called to cancel. Will need rescheduled on dc. Current Admission Presentation: Respiratory Arrest. Ventilator Intro role of CM and purpose of RN CM assessment to patient's listed contact Luci Goldsmith- she states she is pt's neighbor and very good friend. She states pt was doing very well after last admission until few days ago when she began having increased shortness of breath. RN CM asked if pt had children. Per friend, pt has son/daughter in [place] and [place], both are estranged and she does not have names or numbers. Pt also has a sister she is reportedly close to in [place]. Sister's name is Evelin Zafar in [place], [place]. (Name given to HELEN Stephens for contact). Per friend, she is not aware if pt has Living Will or DPOA. None are on file @ [facility]. Friend stated she attempted to contact sister through [employer], but has not heard from her yet. DC PLAN: undetermined. CM to continue to follow and assist with dc planning when needed. Priscilla CERVANTES RN ACM
--- NOTE | 2019-09-19 10:42 | CASEMGMT ---
Addendum entered by Melany Diaz 09/19/19 13:22: Pt's sister Evelin called back ([phone]), states she thinks her sister Tori Mac is here. SW confirmed that yes, pt is here in the hospital in the ICU. She states she is pt's decision maker if anything were to happen, the papers are at the bank. As per pt's sister, one child has not spoken w/the pt in 20 years and wants no involvement, this child is in [place]. And, the other child is homeless in [place]. SW gave pt's sister the ICU number should she want to call, and will update the demographics with her information. LEIGH ANN Up Original Note: CM called pt's neighbor, she states pt has two children who are estranged in [place] and [place]. Neighbor states pt is close to her sister Evelin Zafar in [place], [place] but does not have her number. SW did a search online, found a Evelin Zafar in [facility] with the address of [address] [place] [address] in [facility], with phone numbers listed as [phone], and [phone]. SW called and left messages both places to call SW stating she may have a loved one here in the hospital(as we don't know for certain this is the correct Evelin Zafar or the correct number), the first number voice mail did state the number was Evelin's. SW will await call back. LEIGH ANN Up
[2019-09-19] MEDS: Vital AF 1.2 Cal Liquid 1,000 ML 60 ML GT (11:53)
[2019-09-19 12:16] LABS: Bedside Glucose 190 mg/dL (70-110)
[2019-09-19 17:25] LABS: Bedside Glucose 179 mg/dL (70-110)
[2019-09-19] MEDS: Atorvastatin Calcium 10 MG Tablet GT (21:15)
[2019-09-19] MEDS: Propofol 10MG/Ml 1,000 MG/100 ML Bottle 13 MG CONT INF (23:20)
[2019-09-19 23:21] LABS: Bedside Glucose 163 mg/dL (70-110)
[2019-09-20] VITALS (39 sets, daily range): BP systolic 115–176; BP diastolic 5–103; PULSE 63–103; RESP 13–25; TEMP 36.3–37.7; O2SAT 91–100
[2019-09-20] MEDS: fentaNYL drip 100 ML 10 MCG IV (01:29)
[2019-09-20] MEDS: Ipratropium/Albuterol Sulfate 3 ML AMPUL.NEB INHALATION ×5 (03:13→19:57)
[2019-09-20] MEDS: TITRATION PARAMETER CHANGE 1 EACH IV (04:03)
[2019-09-20] MEDS: Insulin Lispro 100 UNIT/ML INSULN.PEN SC ×4 (05:12→21:04)
[2019-09-20 05:25] LABS: Bedside Glucose 187 mg/dL (70-110)
--- NOTE | 2019-09-20 06:39 | PN_ITS ---
Subjective: The patient was seen and examined at the bedside this morning. Events from the last 24 hours have been reviewed. The patient is currently afebrile, hemodynamically stable and maintaining appropriate oxygen saturations on spontaneous mode of mechanical ventilation with an FiO2 requirement of 30%. The patient has done well this morning on her spontaneous breathing trial. All sedation is currently on hold. The patient is currently alert and able to follow commands appropriately. No significant secretion output from the endotracheal tube was noted by the nursing staff. Objective: The patient's most recent lab work, culture data and imaging studies have all been personally reviewed. Respiratory viral panel was negative. Strep and urine Legionella antigens were negative. Sputum culture appears to be normal respiratory ledy. Surface echocardiogram revealed stage II diastolic dysfunction with an ejection fraction of 65%. Right ventricular systolic pressure was estimated to be 51 mmHg. General: - - Remains intubated and mechanically ventilated. Currently tolerating spontaneous mode of mechanical ventilation without issue. HEENT: Atraumatic, PERRLA, Normocephalic Oral: No Gingival or Mucosal Lesions/ Ulcerations, - - Endotracheal and OG tubes remain in place. Neck: Supple, No Nodes, Trachea Midline Lungs: - - Clear across anterior lung hartley without appreciable wheezes, rales or rhonchi. Cardiovascular: Regular rate, Regular Rhythm, Normal S1, Normal S2, No murmurs Abdomen: Bowel Sounds Present, Soft, Non Tender, Obese Extremities: No clubbing, No cyanosis, Edema Skin: No breakdown Musculoskeletal: No Tenderness to Palpation of Joints or Extremities, No Muscle Wasting Lymphatic: No Cervical, Supraclavicular, or Inguinal Adenopathy Neurological: - - No focal neurological deficits. Currently alert and able to follow commands appropriately. Vital Signs Temp Pulse Resp BP Pulse Ox 98.7 F 83 13 165/65 H 95 09/20/19 05:00 09/20/19 06:00 09/20/19 06:00 09/20/19 06:00 09/20/19 06:00 Oxygen Delivery Method Mechanical Ventilator Weight: 192 lb 14.472 oz Body Mass Index (BMI) 30.4 Finger Stick Blood Glucose 92 Intake and Output for Last 24 Hours 09/18/19 09/19/19 09/20/19 23:59 23:59 23:59 Intake Total 683.01 / 686.29 2686.62 / 2712.79 502.67 / 502.67 Output Total 1025 / 1025 300 / 300 Balance 683.01 / 486.29 1661.62 / 1687.79 202.67 / 202.67 Labs (Last 48 Hours) 09/18/19 09/18/19 09/18/19 17:06 17:06 17:15 WBC 13.1 H RBC 3.79 L Hgb 9.7 L Hct 32.8 L MCV 86.5 MCH 25.6 L MCHC 29.6 L RDW Std Deviation 48.7 H RDW Coeff of Chelsey 15.3 H Plt Count 213 MPV 10.4 Immature Gran % (Auto) 1.200 H Neut % (Auto) 78.2 H Lymph % (Auto) 11.6 L [place] % (Auto) 5.9 Eos % (Auto) 2.9 Baso % (Auto) 0.2 Absolute Neuts (auto) 10.2 H Absolute Lymphs (auto) 1.51 Nucleated RBC % 0 Specimen Type Sample Site pH Bicarbonate Actual POC Total CO2 Base Excess O2 Saturation O2 % ABG pCO2 ABG pO2 Respiration Rate O2 Delivery Device Vent Mode Tidal Volume POC PEEP Blood Gas Notified Whom Blood Gas Notified Time Sodium 141 Potassium 4.2 Chloride 110 H Carbon Dioxide 27.0 Anion Gap 4 L BUN 12 Creatinine 1.16 H Estim Creat Clear Calc 45.52 Est GFR (MDRD) Af Amer 59 L Est GFR (MDRD) Non-Af 49 L BUN/Creatinine Ratio 10.3 Glucose 100 Lactic Acid Calcium 8.9 Magnesium 2.1 Total Bilirubin Direct Bilirubin AST ALT Alkaline Phosphatase Troponin I 0.019 B-Natriuretic Peptide Total Protein Albumin Globulin TSH MRSA (PCR) POC Glucose 09/18/19 09/18/19 09/18/19 17:15 17:30 17:40 WBC RBC Hgb Hct MCV MCH MCHC RDW Std Deviation RDW Coeff of Chelsey Plt Count MPV Immature Gran % (Auto) Neut % (Auto) Lymph % (Auto) [place] % (Auto) Eos % (Auto) Baso % (Auto) Absolute Neuts (auto) Absolute Lymphs (auto) Nucleated RBC % Specimen Type ART Sample Site L Brachial pH 7.25 L Bicarbonate Actual 27.6 H POC Total CO2 30 Base Excess 0 O2 Saturation 99 O2 % 70 ABG pCO2 62.5 H ABG pO2 180 H Respiration Rate 12 O2 Delivery Device Vent Vent Mode A-C Tidal Volume 450 POC PEEP 5 Blood Gas Notified Whom ED MD Blood Gas Notified Time 1735 Sodium Potassium Chloride Carbon Dioxide Anion Gap BUN Creatinine Estim Creat Clear Calc Est GFR (MDRD) Af Amer Est GFR (MDRD) Non-Af BUN/Creatinine Ratio Glucose Lactic Acid 1.4 Calcium Magnesium Total Bilirubin Direct Bilirubin AST ALT Alkaline Phosphatase Troponin I B-Natriuretic Peptide 156.4 H Total Protein Albumin Globulin TSH MRSA (PCR) POC Glucose 09/18/19 09/18/19 09/18/19 20:10 21:27 23:00 WBC RBC Hgb Hct MCV MCH MCHC RDW Std Deviation RDW Coeff of Chelsey Plt Count MPV Immature Gran % (Auto) Neut % (Auto) Lymph % (Auto) [place] % (Auto) Eos % (Auto) Baso % (Auto) Absolute Neuts (auto) Absolute Lymphs (auto) Nucleated RBC % Specimen Type ART Sample Site L Radial pH 7.38 Bicarbonate Actual 25.8 POC Total CO2 27 Base Excess 1 O2 Saturation 99 O2 % 60 ABG pCO2 43.4 ABG pO2 170 H Respiration Rate 14 O2 Delivery Device Vent Vent Mode A-C Tidal Volume 450 POC PEEP 5 Blood Gas Notified Whom [facility] MD Blood Gas Notified Time Sodium Potassium Chloride Carbon Dioxide Anion Gap BUN Creatinine Estim Creat Clear Calc Est GFR (MDRD) Af Amer Est GFR (MDRD) Non-Af BUN/Creatinine Ratio Glucose Lactic Acid Calcium Magnesium Total Bilirubin Direct Bilirubin AST ALT Alkaline Phosphatase Troponin I < 0.015 B-Natriuretic Peptide Total Protein Albumin Globulin TSH MRSA (PCR) POSITIVE H POC Glucose 09/18/19 09/19/19 09/19/19 23:09 00:00 03:14 WBC RBC Hgb Hct MCV MCH MCHC RDW Std Deviation RDW Coeff of Chelsey Plt Count MPV Immature Gran % (Auto) Neut % (Auto) Lymph % (Auto) [place] % (Auto) Eos % (Auto) Baso % (Auto) Absolute Neuts (auto) Absolute Lymphs (auto) Nucleated RBC % Specimen Type Sample Site pH Bicarbonate Actual POC Total CO2 Base Excess O2 Saturation O2 % ABG pCO2 ABG pO2 Respiration Rate O2 Delivery Device Vent Mode Tidal Volume POC PEEP Blood Gas Notified Whom Blood Gas Notified Time Sodium 142 Potassium 4.1 Chloride 111 H Carbon Dioxide 21.0 Anion Gap 10 BUN 14 Creatinine 1.12 H Estim Creat Clear Calc 43.75 Est GFR (MDRD) Af Amer 62 Est GFR (MDRD) Non-Af 51 L BUN/Creatinine Ratio 12.5 Glucose 170 H Lactic Acid Calcium 8.3 L Magnesium Total Bilirubin 0.70 Direct Bilirubin 0.17 AST 20 ALT 24 Alkaline Phosphatase 63 Troponin I 0.021 B-Natriuretic Peptide Total Protein 6.8 Albumin 2.9 L Globulin 3.9 TSH 0.44 MRSA (PCR) POC Glucose 101 09/19/19 09/19/19 09/19/19 03:14 03:14 06:21 WBC 18.0 H RBC 4.14 L Hgb 10.8 L Hct 34.7 L MCV 83.8 MCH 26.1 L MCHC 31.1 L D RDW Std Deviation 46.1 H RDW Coeff of Chelsey 15.5 H Plt Count 227 MPV 10.5 Immature Gran % (Auto) 1.100 H Neut % (Auto) 90.1 H Lymph % (Auto) 6.6 L [place] % (Auto) 1.7 Eos % (Auto) 0.3 Baso % (Auto) 0.2 Absolute Neuts (auto) 16.2 H Absolute Lymphs (auto) 1.19 Nucleated RBC % 0 Specimen Type Sample Site pH Bicarbonate Actual POC Total CO2 Base Excess O2 Saturation O2 % ABG pCO2 ABG pO2 Respiration Rate O2 Delivery Device Vent Mode Tidal Volume POC PEEP Blood Gas Notified Whom Blood Gas Notified Time Sodium Potassium Chloride Carbon Dioxide Anion Gap BUN Creatinine Estim Creat Clear Calc Est GFR (MDRD) Af Amer Est GFR (MDRD) Non-Af BUN/Creatinine Ratio Glucose Lactic Acid Calcium Magnesium Total Bilirubin Direct Bilirubin AST ALT Alkaline Phosphatase Troponin I < 0.015 B-Natriuretic Peptide Total Protein Albumin Globulin TSH MRSA (PCR) POC Glucose 201 H 09/19/19 09/19/19 09/19/19 11:50 17:16 23:18 WBC RBC Hgb Hct MCV MCH MCHC RDW Std Deviation RDW Coeff of Chelsey Plt Count MPV Immature Gran % (Auto) Neut % (Auto) Lymph % (Auto) [place] % (Auto) Eos % (Auto) Baso % (Auto) Absolute Neuts (auto) Absolute Lymphs (auto) Nucleated RBC % Specimen Type Sample Site pH Bicarbonate Actual POC Total CO2 Base Excess O2 Saturation O2 % ABG pCO2 ABG pO2 Respiration Rate O2 Delivery Device Vent Mode Tidal Volume POC PEEP Blood Gas Notified Whom Blood Gas Notified Time Sodium Potassium Chloride Carbon Dioxide Anion Gap BUN Creatinine Estim Creat Clear Calc Est GFR (MDRD) Af Amer Est GFR (MDRD) Non-Af BUN/Creatinine Ratio Glucose Lactic Acid Calcium Magnesium Total Bilirubin Direct Bilirubin AST ALT Alkaline Phosphatase Troponin I B-Natriuretic Peptide Total Protein Albumin Globulin TSH MRSA (PCR) POC Glucose 190 H 179 H 163 H 09/20/19 05:10 WBC RBC Hgb Hct MCV MCH MCHC RDW Std Deviation RDW Coeff of Chelsey Plt Count MPV Immature Gran % (Auto) Neut % (Auto) Lymph % (Auto) [place] % (Auto) Eos % (Auto) Baso % (Auto) Absolute Neuts (auto) Absolute Lymphs (auto) Nucleated RBC % Specimen Type Sample Site pH Bicarbonate Actual POC Total CO2 Base Excess O2 Saturation O2 % ABG pCO2 ABG pO2 Respiration Rate O2 Delivery Device Vent Mode Tidal Volume POC PEEP Blood Gas Notified Whom Blood Gas Notified Time Sodium Potassium Chloride Carbon Dioxide Anion Gap BUN Creatinine Estim Creat Clear Calc Est GFR (MDRD) Af Amer Est GFR (MDRD) Non-Af BUN/Creatinine Ratio Glucose Lactic Acid Calcium Magnesium Total Bilirubin Direct Bilirubin AST ALT Alkaline Phosphatase Troponin I B-Natriuretic Peptide Total Protein Albumin Globulin TSH MRSA (PCR) POC Glucose 187 H Microbiology 09/18/19 20:15 Urine Catheter - [place] Streptococcus pneumoniae Antigen (M - Final 09/18/19 20:15 Urine Catheter - [place] Legionella Antigen - Final 09/18/19 20:50 Sputum, Induced/Lukens Gram Stain - Final 09/18/19 20:50 Sputum, Induced/Lukens Respiratory Culture - Preliminary Appears to be normal respiratory ledy. Further studies to follow. 09/18/19 20:15 Mucosa - Nose Respiratory Panel (PCR) - Final Clinical Impression(s) from Imaging Studies Chest X-Ray 09/18/19 17:05 IMPRESSION: Lines and tubes as above. Patchy right basilar opacity is nonspecific and may represent pneumonia in the appropriate clinical setting. Electronically Signed: Graeme Gardner, at 17:45 EDT Tel , Service support , Medical Necessity - Tobacco Use Smoking Status: Former smoker Assessment/Plan All Active Problems (Last Updated 09/04/19 @ 09:10 by Sadie A Karin) Acute respiratory failure with hypoxia and hypercapnia (Acute) Right lower lobe pneumonia (Acute) Severe sepsis (Acute) Non-ST elevation (NSTEMI) myocardial infarction (Resolved 06/22/18) ACS (acute coronary syndrome) (Resolved) Acute diastolic (congestive) heart failure (Resolved) Cellulitis of buttock (Resolved) Chest pain (Resolved) Corneal injury (Resolved) Diverticulitis large intestine (Resolved) Hypertensive urgency (Resolved) Muscle cramps (Resolved) Right wrist pain (Resolved) S/P colonoscopy (Resolved) RECOMMENDATIONS: 1. Proceed with a trial of extubation this morning. 2. Once extubated, wean supplemental oxygen to maintain saturations at or above 90%. 3. Perform bedside swallow evaluation and advance diet accordingly. 4. Encourage incentive spirometer use and mobilize patient as tolerated. 5. Continue empiric antimicrobials, with plans to complete a 7-day treatment course. 6. Continue scheduled bronchodilators. 7. Continue appropriate prophylaxis. IMPRESSIONS: 1. Acute combined respiratory failure Appears to be most likely secondary to healthcare associated pneumonia along with possible obstructive lung disease with exacerbation. The patient has improved from a respiratory perspective and will be extubated this morning. Once extubated, will wean supplemental oxygen to maintain saturations at or above 90%. Bedside swallow evaluation will be completed prior to advancing diet. The patient will be continued on bronchodilators and broad-spectrum antimicrobials for now. 2. Possible sleep disordered breathing During the patient's previous hospitalizations he was identified as being high risk for sleep apnea. Therefore, once she has been successfully extubated, she will be placed empirically on nocturnal BiPAP therapy. Outpatient diagnostic polysomnogram is recommended. 3. Coronary artery disease status post recent PCI/heart failure with preserved ejection fraction/pulmonary hypertension Continue baseline cardiac medications. 4. Obesity/diabetes mellitus/hyperlipidemia/peripheral arterial disease Complicates care, management, recovery and prognosis. Continue sliding scale insulin coverage. Physical therapy to work with the patient. TIME: 38 minutes of critical care time, independent of procedures, was spent addressing the patient's acute combined respiratory failure, possible sleep disordered breathing, coronary artery disease, heart failure with preserved ejection fraction, pulmonary hypertension, review of all data and collaboration with the care team. [id number]) [id number] Critical care first hour
--- NOTE | 2019-09-20 06:52 | NURSING ---
Patient was extubated this morning, and placed on 2L NC and is tolerating this just fine. Patient has no complaints of pain or needs at this time.
--- NOTE | 2019-09-20 07:26 | PN_ITS ---
Patient Problems: Active and Suspected Problems (Last Updated 09/04/19 @ 09:25 by Yue Holley) Acute respiratory failure with hypoxia and hypercapnia (Acute) Right lower lobe pneumonia (Acute) Severe sepsis (Acute) Reason for Visit: Follow-up respiratory failure Subjective: Patient successfully weaned off the vent this a.m. Objective: GENERAL: Awake on the vent HEENT: Atraumatic; EYES; Anicteric, Normal Conjunctiva NECK; supple, normal thyroid, RESPIRATORY: Diminished to auscultation CARDIOVASCULAR: Regular S1 S2, GI: soft, normoactive bowel sounds, : No Renal angle tenderness; EXTREMITIES: No edema, no clubbing, MUSCULOSKELETAL: no muscle waisting NEURO: On The vent SKIN: No Rash PSYCH; unable to assess Vitals/I&O's: Vital Signs Temp Pulse Resp BP Pulse Ox 98.7 F 88 23 H 156/66 H 97 09/20/19 05:00 09/20/19 07:00 09/20/19 07:00 09/20/19 07:00 09/20/19 07:00 Oxygen Flow Rate (L/min) 2 Oxygen Delivery Method Nasal Cannula Weight: 87.5 kg Body Mass Index (BMI) 30.4 Finger Stick Blood Glucose 92 Intake and Output for Last 24 Hours 09/18/19 09/19/19 09/20/19 23:59 23:59 23:59 Intake Total 683.01 / 686.29 2686.62 / 2712.79 502.67 / 502.67 Output Total 1025 / 1025 300 / 300 Balance 683.01 / 486.29 1661.62 / 1687.79 202.67 / 202.67 Microbiology Past 72 Hours 09/18/19 20:15 Urine Catheter - [place] Streptococcus pneumoniae Antigen (M - Final 09/18/19 20:15 Urine Catheter - [place] Legionella Antigen - Final 09/18/19 20:50 Sputum, Induced/Lukens Gram Stain - Final 09/18/19 20:50 Sputum, Induced/Lukens Respiratory Culture - Preliminary Appears to be normal respiratory ledy. Further studies to follow. 09/18/19 20:15 Mucosa - Nose Respiratory Panel (PCR) - Final Laboratory Results 09/19/19 11:50: POC Glucose 190 H 09/19/19 17:16: POC Glucose 179 H 09/19/19 23:18: POC Glucose 163 H 09/20/19 05:10: POC Glucose 187 H Current Medications Acetaminophen (Tylenol) 650 mg PO Q4H PRN PRN PRN Reason: Pain Score 1-10/Temp > 100.7 F Albuterol Sulfate (Ventolin Aerosols) 2.5 mg INHALATION Q2H PRN PRN PRN Reason: SOB/Wheezing Albuterol/Ipratropium (Duoneb) 3 ml INHALATION Q4H.RT [facility] Last Admin: 09/20/19 06:55 Dose: 3 ml Documented by: Amlodipine Besylate (Norvasc) 10 mg PO DAILY [facility] Atorvastatin Calcium (Lipitor) 10 mg PO QHS [facility] Clopidogrel Bisulfate (Plavix) 75 mg PO DAILY [facility] Dextrose (D50w Syringe) 0 gm IV X1 PRN; Protocol PRN Reason: Hypoglycemia Enoxaparin Sodium (Lovenox) 40 mg SC DAILY [facility] Last Admin: 09/19/19 09:15 Dose: 40 mg Documented by: Glucagon () 1 mg IM .X1 PRN PRN Reason: Hypoglycemia Piperacillin Sod/Tazobactam (Sod 3.375 gm/ Sodium Chloride) 50 mls @ 12.5 mls/hr IV Q8 [facility] Stop: 09/25/19 22:01 Last Admin: 09/20/19 05:12 Dose: 12.5 mls/hr Documented by: Vancomycin IV Pharmacy to Dose (1 ea/ Sodium Chloride) 500 mls @ 250 mls/hr IV PRN PRN; Protocol Sodium Chloride () 250 mls @ 15 mls/hr IV .[id number] PRN PRN Reason: Saline Flush Sodium Chloride () 250 mls @ 15 mls/hr IV .[id number] PRN PRN Reason: Additional IVPB Infusion Vancomycin HCl 750 mg/ Sodium (Chloride) 265 mls @ 250 mls/hr IV Q12H [facility] Last Infusion: 09/19/19 22:12 Dose: Infused Documented by: Insulin Human Lispro (Humalog Kwikpen (Bkc)) 0 unit SC ACHS [facility]; Protocol Lisinopril (Zestril) 20 mg PO BID [facility] Metoprolol Tartrate (Lopressor (Beta Stefanie)) 25 mg PO BID [facility] Last Admin: 09/19/19 21:15 Dose: 25 mg Documented by: Nitroglycerin (Nitrostat) 0.4 mg SUBLINGUAL Q5M PRN PRN Reason: CARDIAC/CHEST PAIN Prochlorperazine Edisylate (Compazine Iv) 5 mg IV Q4H PRN PRN PRN Reason: Breakthrough Nausea/Vomiting Sodium Chloride () 10 - 40 ml IV UD PRN PRN Reason: SALINE FLUSH STROKE Vital Signs/Narrative: Vital Signs Temp Pulse Resp BP Pulse Ox 09/20/19 07:00 88 23 H 156/66 H 97 09/20/19 06:00 83 13 165/65 H 95 09/20/19 05:15 16 09/20/19 05:00 98.7 F 76 15 168/60 H 94 09/20/19 04:00 98.7 F 68 14 139/61 H 96 Medical Necessity - Tobacco Use Smoking Status: Former smoker Assessment/Plan All Active Problems (Last Updated 09/04/19 @ 09:10 by Sadie Frazier) Acute respiratory failure with hypoxia and hypercapnia (Acute) Right lower lobe pneumonia (Acute) Severe sepsis (Acute) Non-ST elevation (NSTEMI) myocardial infarction (Resolved 06/22/18) ACS (acute coronary syndrome) (Resolved) Acute diastolic (congestive) heart failure (Resolved) Cellulitis of buttock (Resolved) Chest pain (Resolved) Corneal injury (Resolved) Diverticulitis large intestine (Resolved) Hypertensive urgency (Resolved) Muscle cramps (Resolved) Right wrist pain (Resolved) S/P colonoscopy (Resolved) Patient is a 69-year-old lady admitted with progressive shortness of breath and assessment of acute hypoxic and hypercapnic respiratory failure made patient intubated in the ED and admitted to the intensive care unit 1. Acute hypoxic and hypercapnic respiratory failure ?Secondary to combination of pneumonia and COPD exacerbation patient was intubated prior to being admitted to the intensive care unit with consultation placed to telegraph messenger. -09/20/2019: Patient seen successfully weaned off the vent 2. Community-acquired pneumonia ?Chest x-ray demonstrated right lower lobe pneumonia. Admitted to the intensive care unit where patient is currently being managed with broad-spectrum antibiotic therapy (vancomycin and Zosyn) after cultures have been taken. Patient was intubated as stated above. Vent management deferred to pulmonary medicine -09/20/2019; patient seen cultures have remained negative to date. As stated above patient was weaned off the vent this a.m. 3. COPD with acute exacerbation ?Management as discussed above in addition to use of systemic steroids 4. Chronic diastolic heart failure ?Echo obtained on 09/03/2019 demonstrated features consistent with diastolic dysfunction as well as ejection fraction of 65% 5. Pulmonary hypertension - Echo obtained on 09/03/2019 demonstrated Right ventricular systolic pressure estimated to be 51 mmHg consistent With Moderate pulmonary hypertension. 6. Coronary artery disease ?With history of previous PCI/SIVAN recent left heart catheterization on 09/04/2019 failed to demonstrate any hemodynamically significant lesions. 7. Hypertension - blood pressure controlled, home medications continued with dose adjustment as needed 8. Diabetes mellitus type II - Uncontrolled with hyperglycemia did continue with her long acting insulin, [id number] and covered with sliding scale insulin 9. Dyslipidemia - patient is on statin therapy, 10. Obesity with BMI of 38.2 ?Plan is to advise on weight loss following extubation 11. Peripheral arterial disease ?With previous left peroneal and proximal left posterior tibial angioplasty and left superficial femoral atherectomy and angioplasty 02/28/19 12. DVT prophylaxis ?Lovenox Active Medications Acetaminophen (Tylenol) 650 mg PO Q4H PRN PRN PRN Reason: Pain Score 1-10/Temp > 100.7 F Albuterol Sulfate (Ventolin Aerosols) 2.5 mg INHALATION Q2H PRN PRN PRN Reason: SOB/Wheezing Albuterol/Ipratropium (Duoneb) 3 ml INHALATION Q4H.RT [facility] Last Admin: 09/20/19 11:31 Dose: 3 ml Documented by: Amlodipine Besylate (Norvasc) 10 mg PO DAILY [facility] Last Admin: 09/20/19 10:39 Dose: 10 mg Documented by: Atorvastatin Calcium (Lipitor) 10 mg PO QHS [facility] Clopidogrel Bisulfate (Plavix) 75 mg PO DAILY [facility] Last Admin: 09/20/19 10:39 Dose: 75 mg Documented by: Dextrose (D50w Syringe) 0 gm IV X1 PRN; Protocol PRN Reason: Hypoglycemia Enoxaparin Sodium (Lovenox) 40 mg SC DAILY [facility] Last Admin: 09/20/19 10:38 Dose: 40 mg Documented by: Glucagon () 1 mg IM .X1 PRN PRN Reason: Hypoglycemia Piperacillin Sod/Tazobactam (Sod 3.375 gm/ Sodium Chloride) 50 mls @ 12.5 mls/hr IV Q8 [facility] Stop: 09/25/19 22:01 Last Infusion: 09/20/19 09:30 Dose: Infused Documented by: Vancomycin IV Pharmacy to Dose (1 ea/ Sodium Chloride) 500 mls @ 250 mls/hr IV PRN PRN; Protocol Sodium Chloride () 250 mls @ 15 mls/hr IV .[id number] PRN PRN Reason: Saline Flush Sodium Chloride () 250 mls @ 15 mls/hr IV .[id number] PRN PRN Reason: Additional IVPB Infusion Vancomycin HCl 750 mg/ Sodium (Chloride) 265 mls @ 250 mls/hr IV Q12H [facility] Last Infusion: 09/20/19 11:42 Dose: Infused Documented by: Insulin Human Lispro (Humalog Beanpen (Bkc)) 0 unit SC ACHS [facility]; Protocol Last Admin: 09/20/19 12:01 Dose: 2 u Documented by: Isosorbide Mononitrate (Imdur) 60 mg PO DAILY [facility] Last Admin: 09/20/19 10:40 Dose: 60 mg Documented by: Lisinopril (Zestril) 20 mg PO BID [facility] Last Admin: 09/20/19 10:40 Dose: 20 mg Documented by: Metoprolol Succinate (Toprol Xl (Beta Stefanie)) 50 mg PO DAILY [facility] Last Admin: 09/20/19 10:39 Dose: 50 mg Documented by: Nitroglycerin (Nitrostat) 0.4 mg SUBLINGUAL Q5M PRN PRN Reason: CARDIAC/CHEST PAIN Prochlorperazine Edisylate (Compazine Iv) 5 mg IV Q4H PRN PRN PRN Reason: Breakthrough Nausea/Vomiting Sodium Chloride () 10 - 40 ml IV UD PRN PRN Reason: SALINE FLUSH Inpatient E&M: 12869 Subs Hosp L2
[2019-09-20 10:06] LABS: Bedside Glucose 92 mg/dL (70-110)
[2019-09-20 10:24] LABS: Vancomycin, Trough Level 16.6 ug/mL (5.0-15.0)
[2019-09-20] MEDS: Enoxaparin 40 MG/0.4 ML Syringe SC (10:38)
[2019-09-20] MEDS: Clopidogrel Bisulfate 75 MG Tablet PO (10:39)
[2019-09-20] MEDS: Metoprolol(XL)Succ 50 MG Tablet PO (10:39)
[2019-09-20] MEDS: amLODIPine 10 MG Tablet PO (10:39)
[2019-09-20] MEDS: Isosorbide Mononitrate 60 MG Tablet PO (10:40)
[2019-09-20] MEDS: Lisinopril 20 MG Tablet PO ×2 (10:40→21:05)
--- NOTE | 2019-09-20 10:48 | PCM.RX.CS ---
Consult Pharmacy has been consulted to manage selected antiobiotic: Vancomycin Type of Consult: Follow-up Suspected Infection: Pneumonia Prior Doses of Antibiotics Received/Current Regimen: VANCOMYCIN 750MG IV Q12: 09/18 @2108, 09/19 @1038 Labs: Sodium 142 mmol/L (136-145) 09/19/19 03:14 Potassium 4.1 mmol/L (3.5-5.1) 09/19/19 03:14 Chloride 111 mmol/L (98-107) H 09/19/19 03:14 Carbon Dioxide 21.0 mmol/L (21.0-32.0) 09/19/19 03:14 Anion Gap 10 (5-15) 09/19/19 03:14 BUN 14 mg/dL (7-18) 09/19/19 03:14 Creatinine 1.12 mg/dL (0.55-1.02) H 09/19/19 03:14 Est GFR (MDRD) Af Amer 62 mL/min (>60) 09/19/19 03:14 Est GFR (MDRD) Non-Af 51 mL/min (>60) L 09/19/19 03:14 BUN/Creatinine Ratio 12.5 RATIO (10-20) 09/19/19 03:14 Glucose 170 mg/dL (74-106) H 09/19/19 03:14 Vancomycin Trough 16.6 ug/mL (5.0-15.0) H 09/20/19 09:30 Microbiology: Microbiology 09/18/19 20:15 Urine Catheter - [place] Streptococcus pneumoniae Antigen (M - Final 09/18/19 20:15 Urine Catheter - [place] Legionella Antigen - Final 09/18/19 20:50 Sputum, Induced/[place] Gram Stain - Final 09/18/19 20:50 Sputum, Induced/[place] Respiratory Culture - Preliminary Appears to be normal respiratory ledy. Further studies to follow. 09/18/19 20:15 Mucosa - Nose Respiratory Panel (PCR) - Final Goal Trough: 15-20 mcg/mL Pharmacy Plan for Drug Dosing: The patient had a trough drawn which resulted in a value of 16.6 (drawn ~12.5hrs from last dose). This is within the patient's goal trough of 15-20. Will plan on continuing current vancomycin dosing. Will draw a trough in 4 days per protocol to reassess. PLAN/RECOMMENDATIONS 1. Continue vancomycin 750mg IV Q12hrs 2. Trough scheduled 09/24/19 @0930 to assess dosing at that time 3. Pharmacy Service will continue to monitor and adjust dosing as required.
[2019-09-20 12:05] LABS: Bedside Glucose 190 mg/dL (70-110)
--- NOTE | 2019-09-20 14:26 | CASEMGMT ---
RN CM Note: Intro role of CM to patient who is known to CM from previous admission. Discussed events leading to her emergency transport to [facility] ER. Pt stated she had been feeling poorly day prior, but did not contact physician at that time. She did call CM and leave message (CM not available) to request a nebulizer. RN KYREE discussed calling Home Health Nurse or physician when symptoms worsen and not waiting if symptoms do not resolve in timely matter. Pt states she understands and thought it would get better. AMY ADORNO let her know appt with Dr. Adamson for tomorrow was cancelled and can be rescheduled on discharge. Dr. Adamson updated that pt had requested a nebulizer and will evaluate appropriateness of need closer to dc. Pt is aware and understands. -Pt's sister is coming from [place] to stay with her this weekend. -Pt is agreeable to resume [facility] HHS on dc. (RN PT OT) Priscilla TORRESN RN ACM
[2019-09-20 16:40] LABS: Bedside Glucose 181 mg/dL (70-110)
[2019-09-20] MEDS: Atorvastatin Calcium 10 MG Tablet PO (21:05)
[2019-09-20 21:15] LABS: Bedside Glucose 169 mg/dL (70-110)
[2019-09-21] VITALS (35 sets, daily range): BP systolic 145–186; BP diastolic 61–104; PULSE 78–96; RESP 12–24; TEMP 36.8–37.5; O2SAT 91–100
[2019-09-21] MEDS: 0.9% Saline Lock 10 ML Syringe IV ×3 (00:11→22:19)
[2019-09-21] MEDS: hydrALAZINE 20 MG/ML Vial 10 MG IV ×2 (00:11→05:28)
[2019-09-21 06:50] LABS: Bedside Glucose 141 mg/dL (70-110)
[2019-09-21] MEDS: Ipratropium/Albuterol Sulfate 3 ML AMPUL.NEB INHALATION ×4 (06:54→21:19)
--- NOTE | 2019-09-21 06:58 | PN_ITS ---
Subjective: The patient was seen and examined at the bedside this morning. Events from the last 24 hours have been reviewed. The patient is currently afebrile, hemodynamically stable and maintaining appropriate oxygen saturations on room air. The patient has done well clinically following extubation yesterday. She is without complaints of shortness of breath this morning. Objective: The patient's most recent lab work, culture data and imaging studies have all been personally reviewed. Respiratory viral panel was negative. Strep and urine Legionella antigens were negative. Sputum culture appears to be normal respiratory ledy. Surface echocardiogram revealed stage II diastolic dysfunction with an ejection fraction of 65%. Right ventricular systolic pressure was estimated to be 51 mmHg. General: Alert, Cooperative, No apparent distress HEENT: Atraumatic, PERRLA, Normocephalic Oral: No Gingival or Mucosal Lesions/ Ulcerations Neck: Supple, No Nodes, Trachea Midline Lungs: No rhonchi, No wheeze, No rales, Diminished, Tachypneic Cardiovascular: Regular rate, Regular Rhythm, Normal S1, Normal S2, No murmurs Abdomen: Bowel Sounds Present, Soft, Non Tender, Obese Extremities: No clubbing, No cyanosis, Edema Skin: No breakdown Musculoskeletal: No Tenderness to Palpation of Joints or Extremities Lymphatic: No Cervical, Supraclavicular, or Inguinal Adenopathy Neurological: Cranial nerves II-XII grossly intact, Neuro grossly intact Psych/Mental Status: Alert and oriented to time, place, person, mood and affect Vital Signs Temp Pulse Resp BP Pulse Ox 98.2 F 87 19 H 168/64 H 95 09/21/19 04:00 09/21/19 06:00 09/21/19 06:00 09/21/19 06:00 09/21/19 06:00 Oxygen Flow Rate (L/min) 1 Oxygen Delivery Method Room Air Weight: 194 lb 0.108 oz Body Mass Index (BMI) 30.4 Finger Stick Blood Glucose 92 Intake and Output for Last 24 Hours 09/19/19 09/20/19 09/21/19 23:59 23:59 23:59 Intake Total 2686.62 / 2712.79 1962.67 / 1962.67 270 / 270 Output Total 1025 / 1025 1750 / 1750 350 / 350 Balance 1661.62 / 1687.79 212.67 / 212.67 -80 / -80 Labs (Last 48 Hours) 09/18/19 09/19/19 09/19/19 16:38 11:50 17:16 Vancomycin Trough POC Glucose 92 190 H 179 H 09/19/19 09/20/19 09/20/19 23:18 05:10 09:30 Vancomycin Trough 16.6 H POC Glucose 163 H 187 H 09/20/19 09/20/19 09/20/19 11:59 16:30 21:02 Vancomycin Trough POC Glucose 190 H 181 H 169 H 09/21/19 06:47 Vancomycin Trough POC Glucose 141 H Microbiology 09/18/19 20:15 Urine Catheter - [place] Streptococcus pneumoniae Antigen (M - Final 09/18/19 20:15 Urine Catheter - [place] Legionella Antigen - Final 09/18/19 20:50 Sputum, Induced/Lukens Gram Stain - Final 09/18/19 20:50 Sputum, Induced/Lukens Respiratory Culture - Preliminary Appears to be normal respiratory ledy. Further studies to follow. 09/18/19 20:15 Mucosa - Nose Respiratory Panel (PCR) - Final Clinical Impression(s) from Imaging Studies Chest X-Ray 09/18/19 17:05 IMPRESSION: Lines and tubes as above. Patchy right basilar opacity is nonspecific and may represent pneumonia in the appropriate clinical setting. Electronically Signed: Graeme Gardner, at 17:45 EDT Tel , Service support , Medical Necessity - Tobacco Use Smoking Status: Former smoker Assessment/Plan All Active Problems (Last Updated 09/04/19 @ 09:10 by Sadie Frazier) Acute respiratory failure with hypoxia and hypercapnia (Acute) Right lower lobe pneumonia (Acute) Severe sepsis (Acute) Non-ST elevation (NSTEMI) myocardial infarction (Resolved 06/22/18) ACS (acute coronary syndrome) (Resolved) Acute diastolic (congestive) heart failure (Resolved) Cellulitis of buttock (Resolved) Chest pain (Resolved) Corneal injury (Resolved) Diverticulitis large intestine (Resolved) Hypertensive urgency (Resolved) Muscle cramps (Resolved) Right wrist pain (Resolved) S/P colonoscopy (Resolved) RECOMMENDATIONS: 1. We will discontinue Zosyn and vancomycin and transition the patient to p.o. Levaquin with plans to complete 5 additional days of treatment. 2. Encourage incentive spirometer use and mobilize patient as tolerated. 3. Continue scheduled bronchodilators. 4. Continue appropriate prophylaxis. 5. Perform walking oximetry study prior to consideration for discharge home. 6. Outpatient pulmonary follow-up within 2 weeks of discharge is warranted. 7. The patient is medically stable for transfer out of the intensive care unit. IMPRESSIONS: 1. Acute combined respiratory failure Resolved. Appears to be most likely secondary to healthcare associated pneumonia along with possible obstructive lung disease with exacerbation. The patient has improved from a respiratory perspective and was able to be extubated from invasive mechanical ventilatory support on September 19. She has done well from a respiratory perspective following extubation. At this time, given that her infectious work-up has been negative, will discontinue vancomycin and Zosyn and transition the patient to p.o. Levaquin with plans to complete 5 additional days of treatment. Continue to encourage incentive spirometer use and mobilize patient as tolerated. 2. Possible sleep disordered breathing During the patient's previous hospitalizations he was identified as being high risk for sleep apnea. Orders for empiric BiPAP therapy with naps and nightly have been placed. The patient will require outpatient polysomnogram upon discharge. 3. Coronary artery disease status post recent PCI/heart failure with preserved ejection fraction/pulmonary hypertension Continue baseline cardiac medications. The patient may require additional antihypertensives, given that her pressures remain on the high side. 4. Obesity/diabetes mellitus/hyperlipidemia/peripheral arterial disease Complicates care, management, recovery and prognosis. Continue sliding scale insulin coverage. Physical therapy to work with the patient. This note was generated with [employer] dictation software. It may contain incorrect words, spelling, and punctuation that were not noted in checking the note before signing. Inpatient E&M: 50920 [facility] L3
--- NOTE | 2019-09-21 07:57 | PN_ITS ---
Patient Problems: Active and Suspected Problems (Last Updated 09/04/19 @ 09:25 by Yue Holley) Acute respiratory failure with hypoxia and hypercapnia (Acute) Right lower lobe pneumonia (Acute) Severe sepsis (Acute) Reason for Visit: Acute hypoxic respiratory failure, progressive worsening shortness of breath, dyspnea on exertion intubated in ER Follow-up post extubation Objective: Patient was extubated yesterday on 09/20/2019. Blood pressure is high. 178/68, 164/61. Still mild short of breath with feeling of chest congestion. Respiratory rate 20 to 24/min on 2 L of oxygen. Vitals/I&O's: Vital Signs Temp Pulse Resp BP Pulse Ox 98.2 F 93 17 182/79 H 92 09/21/19 04:00 09/21/19 07:28 09/21/19 07:00 09/21/19 07:00 09/21/19 07:00 Oxygen Flow Rate (L/min) 1 Oxygen Delivery Method Room Air Weight: 194 lb 0.108 oz Body Mass Index (BMI) 30.4 Finger Stick Blood Glucose 92 Intake and Output for Last 24 Hours 09/19/19 09/20/19 09/21/19 23:59 23:59 23:59 Intake Total 2686.62 / 2712.79 1962.67 / 1962.67 270 / 270 Output Total 1025 / 1025 1750 / 1750 350 / 350 Balance 1661.62 / 1687.79 212.67 / 212.67 -80 / -80 General: Alert, Oriented x3, Cooperative HEENT: Atraumatic, PERRLA, EOMI, Normocephalic Oral: No Gingival or Mucosal Lesions/ Ulcerations, Dry Mucosa Neck: Supple, No JVD, Negative Carotid Bruits Lungs: Clear to auscultation, Diminished, Rhonchi, Tachypneic Cardiovascular: Regular rate, Regular Rhythm, Normal S1, Normal S2, No murmurs Abdomen: Bowel Sounds Present, Soft, Non Tender, Non-Distended Extremities: Capillary Refill Less than 3 Seconds, Edema Skin: No rashes, No breakdown Musculoskeletal: No Tenderness to Palpation of Joints or Extremities, Arthritic Changes Neurological: Cranial nerves II-XII grossly intact, Deep Tendon Reflexes 2+/4 and Symmetrical, Neuro grossly intact Psych/Mental Status: Normal Affect, Appropriate Microbiology Past 72 Hours 09/18/19 20:15 Urine Catheter - [place] Streptococcus pneumoniae Antigen (M - Final 09/18/19 20:15 Urine Catheter - [place] Legionella Antigen - Final 09/18/19 20:50 Sputum, Induced/Lukens Gram Stain - Final 09/18/19 20:50 Sputum, Induced/Lukens Respiratory Culture - Preliminary Appears to be normal respiratory ledy. Further studies to follow. 09/18/19 20:15 Mucosa - Nose Respiratory Panel (PCR) - Final Laboratory Results 09/18/19 16:38: POC Glucose 92 09/20/19 09:30: Vancomycin Trough 16.6 H 09/20/19 11:59: POC Glucose 190 H 09/20/19 16:30: POC Glucose 181 H 09/20/19 21:02: POC Glucose 169 H 09/21/19 06:47: POC Glucose 141 H Current Medications Acetaminophen (Tylenol) 650 mg PO Q4H PRN PRN PRN Reason: Pain Score 1-10/Temp > 100.7 F Albuterol Sulfate (Ventolin Aerosols) 2.5 mg INHALATION Q2H PRN PRN PRN Reason: SOB/Wheezing Albuterol/Ipratropium (Duoneb) 3 ml INHALATION Q4H.RT [facility] Last Admin: 09/21/19 06:54 Dose: 3 ml Documented by: Amlodipine Besylate (Norvasc) 10 mg PO DAILY [facility] Last Admin: 09/20/19 10:39 Dose: 10 mg Documented by: Atorvastatin Calcium (Lipitor) 10 mg PO QHS [facility] Last Admin: 09/20/19 21:05 Dose: 10 mg Documented by: Clopidogrel Bisulfate (Plavix) 75 mg PO DAILY [facility] Last Admin: 09/20/19 10:39 Dose: 75 mg Documented by: Dextrose (D50w Syringe) 0 gm IV X1 PRN; Protocol PRN Reason: Hypoglycemia Enoxaparin Sodium (Lovenox) 40 mg SC DAILY [facility] Last Admin: 09/20/19 10:38 Dose: 40 mg Documented by: Glucagon () 1 mg IM .X1 PRN PRN Reason: Hypoglycemia Hydralazine HCl (Apresoline Iv) 10 mg IV Q4H PRN PRN PRN Reason: SBP > 160 Last Admin: 09/21/19 05:28 Dose: 10 mg Documented by: Sodium Chloride () 250 mls @ 15 mls/hr IV .[id number] PRN PRN Reason: Saline Flush Sodium Chloride () 250 mls @ 15 mls/hr IV .[id number] PRN PRN Reason: Additional IVPB Infusion Insulin Human Lispro (Humalog Kwikpen (Bkc)) 0 unit SC ACHS [facility]; Protocol Last Admin: 09/21/19 07:54 Dose: Not Given Documented by: Isosorbide Mononitrate (Imdur) 60 mg PO DAILY [facility] Last Admin: 09/20/19 10:40 Dose: 60 mg Documented by: Levofloxacin (Levaquin Tablet) 750 mg PO Q48 [facility] Lisinopril (Zestril) 20 mg PO BID [facility] Last Admin: 09/20/19 21:05 Dose: 20 mg Documented by: Metoprolol Succinate (Toprol Xl (Beta Stefanie)) 50 mg PO DAILY [facility] Last Admin: 09/20/19 10:39 Dose: 50 mg Documented by: Nitroglycerin (Nitrostat) 0.4 mg SUBLINGUAL Q5M PRN PRN Reason: CARDIAC/CHEST PAIN Prochlorperazine Edisylate (Compazine Iv) 5 mg IV Q4H PRN PRN PRN Reason: Breakthrough Nausea/Vomiting Sodium Chloride () 10 - 40 ml IV UD PRN PRN Reason: SALINE FLUSH Last Admin: 09/21/19 05:29 Dose: 20 ml Documented by: STROKE Vital Signs/Narrative: Vital Signs Temp Pulse Resp BP Pulse Ox 09/21/19 07:28 93 09/21/19 07:00 88 17 182/79 H 92 09/21/19 06:00 87 19 H 168/64 H 95 09/21/19 05:33 186/97 H 09/21/19 05:28 89 09/21/19 05:00 87 24 H 177/82 H 94 09/21/19 04:00 98.2 F 80 17 168/74 H 93 Medical Necessity - Tobacco Use Smoking Status: Former smoker Assessment/Plan All Active Problems (Last Updated 09/04/19 @ 09:10 by Sadie Frazier) Acute respiratory failure with hypoxia and hypercapnia (Acute) Right lower lobe pneumonia (Acute) Severe sepsis (Acute) Non-ST elevation (NSTEMI) myocardial infarction (Resolved 06/22/18) ACS (acute coronary syndrome) (Resolved) Acute diastolic (congestive) heart failure (Resolved) Cellulitis of buttock (Resolved) Chest pain (Resolved) Corneal injury (Resolved) Diverticulitis large intestine (Resolved) Hypertensive urgency (Resolved) Muscle cramps (Resolved) Right wrist pain (Resolved) S/P colonoscopy (Resolved) The patient is a 69 year old F with history of acute chest pain and acute kidney injury for which she was admitted in August 2019 and had PCI in mid RCA in June 2018 brought in by EMS for shortness of breath. In ED, patient was afebrile, heart rate in 70s, blood pressure 124/57, intubated currently on 50% FiO2 Chest x-ray independently reviewed shows patchy right basilar opacity. EKG shows normal sinus rhythm at 72 bpm. QTc 451 ms. 1. Acute hypoxic and hypercarbic respiratory failure probably secondary to pneumonia possible COPD exacerbation: ABG postintubation, 7.25/60 2/180 on 70% FiO2. On 09/20: Post extubation. On 2 L of oxygen. On BiPAP with naps and night. Patient requires outpatient polysomnogram after discharge. 2. Right lower lobe pneumonia: Patient is started empirically on broad-spectrum antibiotic vancomycin and Zosyn. Panculture with blood cultures x2, respiratory panel, UA with urine culture, and sputum culture ordered. 09/20: Urinary antigens are negative. Sputum culture reported mixed normal respiratory ledy. Respiratory panel negative. Blood cultures x2 are negative for more than 48 hours 3. Possible COPD, obstructive sleep apnea: Patient quit smoking 25 years ago, possibly started in teenage therefore about 25 pack years of smoking. Bronchodilator, IV Solu-Medrol, chest physiotherapy. 4. History of atypical chest pain with proximal LAD and stenting June 2018 with chronic heart failure with preserved EF/diastolic heart failure, moderate pulmonary hypertension. Patient had recent left heart cath which failed to demonstrate any obstructive lesion. Echo on 09/03/2019 Interpretation Summary The estimated ejection fraction is 65 %. Stage 2 diastolic dysfunction. Trivial mitral valve insufficiency. Mild (1+) eccentric tricuspid valve insufficiency. Right ventricular systolic pressure estimated to be 51 mmHg. Moderate pulmonary hypertension. There is no comparison study available. 5. Recent acute kidney injury suspected due to contrast-induced nephropathy after left heart cath: This was managed with IV fluid, seen by travel specialist and kidney function improved. Today BUN/creatinine 12/1.16. It was 27/1.6 at time of discharge on 09/07. CBC and BMP ordered 6. Hypertension Blood pressure high. 7. Diabetes mellitus type II: Last A1c 9.5% on June 2018. Uncontrolled with hyperglycemia. Accu-Cheks and cover with Humalog sliding scale insulin. 8. Dyslipidemia patient is on statin therapy, continued at home dose 9. Obesity with BMI of 38.2 10. Peripheral arterial disease ?Patient had left peroneal and proximal left posterior tibial angioplasty and left superficial femoral atherectomy and angioplasty 02/28/19 11. DVT prophylaxis ?Lovenox 40 mg subcu daily. Advance directive/living will: Patient does not have advanced living will. Next of kin her friend, Ms. GoldsmithLuci whom I talked to. Currently she is intubated on ventilator. Full code. Continue CPR, central venous catheter insertion or vasopressor if needed, DC shock and tube feeding. Full code. Total time spent in [id number] encounter in discussion of advanced directive 16 minutes. Laboratory Results 09/18/19 17:06: Sodium 141, Potassium 4.2, Chloride 110 H, Carbon Dioxide 27.0, Anion Gap 4 L, BUN 12, Creatinine 1.16 H, Estim Creat Clear Calc 45.52, Est GFR (MDRD) Af Amer 59 L, Est GFR (MDRD) Non-Af 49 L, BUN/Creatinine Ratio 10.3, Glucose 100, Calcium 8.9, Troponin I 0.019 09/18/19 17:15: WBC 13.1 H, RBC 3.79 L, Hgb 9.7 L, Hct 32.8 L, MCV 86.5, MCH 25.6 L, MCHC 29.6 L, RDW Std Deviation 48.7 H, RDW Coeff of Chelsey 15.3 H, Plt Count 213, MPV 10.4, Immature Gran % (Auto) 1.200 H, Neut % (Auto) 78.2 H, Lymph % (Auto) 11.6 L, [place] % (Auto) 5.9, Eos % (Auto) 2.9, Baso % (Auto) 0.2, Absolute Neuts (auto) 10.2 H, Absolute Lymphs (auto) 1.51, Nucleated RBC % 0 09/18/19 17:15: B-Natriuretic Peptide 156.4 H 09/18/19 17:30: Lactic Acid 1.4 09/18/19 17:40: Specimen Type ART, Sample Site L Brachial, pH 7.25 L, Bicarbonate Actual 27.6 H, POC Total CO2 30, Base Excess 0, O2 Saturation 99, O2 % 70, ABG pCO2 62.5 H, ABG pO2 180 H, Respiration Rate 12, O2 Delivery Device Vent, Vent Mode A-C, Tidal Volume 450, POC PEEP 5, Blood Gas Notified Whom ED MD, Blood Gas Notified Time 173 Clinical Impression(s) from Imaging Studies Chest X-Ray 09/18/19 17:05 IMPRESSION: Lines and tubes as above. Patchy right basilar opacity is nonspecific and may represent pneumonia in the appropriate clinical setting. Inpatient E&M: 40021 [facility] L3
[2019-09-21] MEDS: Lisinopril 20 MG Tablet PO (08:24)
[2019-09-21] MEDS: Isosorbide Mononitrate 60 MG Tablet PO (08:24)
[2019-09-21] MEDS: Metoprolol(XL)Succ 50 MG Tablet PO (08:24)
[2019-09-21] MEDS: amLODIPine 10 MG Tablet PO (08:25)
[2019-09-21] MEDS: Clopidogrel Bisulfate 75 MG Tablet PO (08:25)
--- NOTE | 2019-09-21 10:10 | CASEMGMT ---
Addendum entered by Joshua Escobedo 09/21/19 10:51: DME choice if needed was [facility]. Priscilla BURGERM Original Note: RN Case Mngr Note: Plan is home with [facility] for nursing and PT. Pt also said her sister is flying up from [place] this weekend to stay with her. Home oxygen testing recommended on dc. Priscilla CERVANTES RN ACM
[2019-09-21 10:31] LABS: Anion Gap 6 (5-15); BUN 16 mg/dL (7-18); BUN/Creat Ratio 13.3 RATIO (10-20); Calcium,Total 8.2 mg/dL (8.5-10.1); Chloride 115 mmol/L (98-107); EST Glomerular Filtration Rate 47 mL/min (>60); Est Glom Filt Rate - Afr Amer 57 mL/min (>60); Estimated Creatinine Clearance 40.84 ml/min; Glucose 239 mg/dL (74-106); Potassium 3.8 mmol/L (3.5-5.1); Sodium Level 144 mmol/L (136-145)
[2019-09-21] MEDS: Glucerna Shake 120 ML LIQUID PO ×3 (11:12→22:19)
[2019-09-21] MEDS: levoFLOXacin 750 MG Tablet PO (11:13)
[2019-09-21] MEDS: Enoxaparin 40 MG/0.4 ML Syringe SC (11:13)
[2019-09-21] MEDS: Insulin Lispro 100 UNIT/ML INSULN.PEN SC ×3 (11:48→22:18)
[2019-09-21] MEDS: hydroCHLOROthiazide 12.5mg 12.5 MG PO (11:48)
[2019-09-21 11:56] LABS: Bedside Glucose 173 mg/dL (70-110)
[2019-09-21] MEDS: hydrALAZINE 50 MG Tablet PO ×2 (16:12→22:18)
[2019-09-21 16:25] LABS: Bedside Glucose 157 mg/dL (70-110)
[2019-09-21] MEDS: Acetaminophen 325 MG Tablet 650 MG PO (20:49)
[2019-09-21] MEDS: Atorvastatin Calcium 10 MG Tablet PO (22:18)
[2019-09-21 22:36] LABS: Bedside Glucose 214 mg/dL (70-110)
--- NOTE | 2019-09-21 23:31 | NURSING ---
PATIENT DID NOT TOLERATE BIPAP WOKE UP ANXIOUS AND HAD RN TAKE OFF MASK. REFUSING TO PUT BACK ON.
[2019-09-22] VITALS (13 sets, daily range): BP systolic 116–180; BP diastolic 50–86; PULSE 80–95; RESP 16–18; TEMP 36.9–37.5; O2SAT 84–99
[2019-09-22 06:48] LABS: Absolute Lymphocyte Count 1.51 X10^3/uL (0.83-4.51); Absolute Neutrophil Count 6.3 X10^3/uL (2.0-7.7); Basophil# 0.04 X10^3/uL; Basophil% 0.4 % (0-1); Eosinophil# 0.86 X10^3/uL; Eosinophils% 8.8 % (0-5); Hematocrit 31.4 % (37-47); Hemoglobin 9.5 g/dL (12.0-15.0); Lymphocyte # 1.51 X10^3/ul (4.0); Lymphocyte % 15.5 % (19-41); Mean Corp Hgb Conc 30.3 g/dL (32-36); Mean Corpuscular Hgb 25.1 pg (27.0-32.0); Mean Corpuscular Volume 83.1 fL (81-99); Mean Platelet Vol. 10.5 fl (6.2-12.0); Monocyte# 1.03 X10^3/uL; Monocyte% 10.6 % (0-10); NRBC Flagged by Analyzer 0 % (0-5); Neutrophil # 6.27 X10^3/uL (2.7-7.7); Neutrophil % 64.2 % (47-70); Platelet Count 190 K/mm3 (150-450); RBC Distribution Width CV 15.5 % (11.6-14.6); RBC Distribution Width SD 46.9 fl (35.1-43.9); Red Blood Count 3.78 M/mm3 (4.2-5.4); White Blood Count 9.8 K/mm3 (4.4-11.0)
[2019-09-22 06:51] LABS: Bedside Glucose 128 mg/dL (70-110)
[2019-09-22 07:01] LABS: Anion Gap 6 (5-15); BUN 12 mg/dL (7-18); BUN/Creat Ratio 12.7 RATIO (10-20); Calcium,Total 8.3 mg/dL (8.5-10.1); Chloride 112 mmol/L (98-107); Creatinine, Serum 0.95 mg/dL (0.55-1.02); EST Glomerular Filtration Rate 62 mL/min (>60); Est Glom Filt Rate - Afr Amer 75 mL/min (>60); Estimated Creatinine Clearance 51.58 ml/min; Glucose 127 mg/dL (74-106); Potassium 3.8 mmol/L (3.5-5.1); Sodium Level 144 mmol/L (136-145)
--- NOTE | 2019-09-22 08:42 | PCM.PN.PUL ---
Subjective: The patient was seen and examined at the bedside this morning. Events from the last 24 hours have been reviewed. The patient is currently afebrile, hemodynamically stable and maintaining appropriate oxygen saturations on room air. Objective: The patient's most recent lab work, culture data and imaging studies have all been personally reviewed. Respiratory viral panel was negative. Strep and urine Legionella antigens were negative. Sputum culture appears to be normal respiratory ledy. Surface echocardiogram revealed stage II diastolic dysfunction with an ejection fraction of 65%. Right ventricular systolic pressure was estimated to be 51 mmHg. - Physical Exam Vitals/I&O's: Vital Signs Temp Pulse Resp BP Pulse Ox 99.5 F H 80 18 162/70 H 91 09/22/19 04:15 09/22/19 07:18 09/22/19 04:15 09/22/19 04:15 09/22/19 08:03 Oxygen Flow Rate (L/min) 1 Oxygen Delivery Method Room Air Weight: 187 lb 13.341 oz Body Mass Index (BMI) 30.4 Finger Stick Blood Glucose 92 Intake and Output for Last 24 Hours 09/20/19 09/21/19 09/22/19 23:59 23:59 23:59 Intake Total 1962.67 / 1962.67 1280 / 1280 100 / 100 Output Total 1750 / 1750 1400 / 1400 Balance 212.67 / 212.67 -120 / -120 100 / 100 General: Alert, Oriented x3, Cooperative, No apparent distress, - - Sitting in bedside recliner. HEENT: Atraumatic, PERRLA, Normocephalic Oral: No Gingival or Mucosal Lesions/ Ulcerations Neck: Supple, No Nodes, Trachea Midline Lungs: No rhonchi, No wheeze, No rales, Diminished Cardiovascular: Regular rate, Regular Rhythm, Normal S1, Normal S2, No murmurs Abdomen: Bowel Sounds Present, Soft, Non Tender, Obese Extremities: No clubbing, No cyanosis Skin: No breakdown Musculoskeletal: No Tenderness to Palpation of Joints or Extremities, No Muscle Wasting Lymphatic: No Cervical, Supraclavicular, or Inguinal Adenopathy Neurological: Cranial nerves II-XII grossly intact, Neuro grossly intact Psych/Mental Status: Alert and oriented to time, place, person, mood and affect Labs (Last 48 Hours) 09/18/19 09/20/19 09/20/19 16:38 09:30 11:59 WBC RBC Hgb Hct MCV MCH MCHC RDW Std Deviation RDW Coeff of Chlesey Plt Count MPV Immature Gran % (Auto) Neut % (Auto) Lymph % (Auto) Cotton % (Auto) Eos % (Auto) Baso % (Auto) Absolute Neuts (auto) Absolute Lymphs (auto) Nucleated RBC % Sodium Potassium Chloride Carbon Dioxide Anion Gap BUN Creatinine Estim Creat Clear Calc Est GFR (MDRD) Af Amer Est GFR (MDRD) Non-Af BUN/Creatinine Ratio Glucose Calcium Vancomycin Trough 16.6 H POC Glucose 92 190 H 09/20/19 09/20/19 09/21/19 16:30 21:02 06:47 WBC RBC Hgb Hct MCV MCH MCHC RDW Std Deviation RDW Coeff of Chelsey Plt Count MPV Immature Gran % (Auto) Neut % (Auto) Lymph % (Auto) Cotton % (Auto) Eos % (Auto) Baso % (Auto) Absolute Neuts (auto) Absolute Lymphs (auto) Nucleated RBC % Sodium Potassium Chloride Carbon Dioxide Anion Gap BUN Creatinine Estim Creat Clear Calc Est GFR (MDRD) Af Amer Est GFR (MDRD) Non-Af BUN/Creatinine Ratio Glucose Calcium Vancomycin Trough POC Glucose 181 H 169 H 141 H 09/21/19 09/21/19 09/21/19 09:55 11:48 16:16 WBC RBC Hgb Hct MCV MCH MCHC RDW Std Deviation RDW Coeff of Chelsey Plt Count MPV Immature Gran % (Auto) Neut % (Auto) Lymph % (Auto) Cotton % (Auto) Eos % (Auto) Baso % (Auto) Absolute Neuts (auto) Absolute Lymphs (auto) Nucleated RBC % Sodium 144 Potassium 3.8 Chloride 115 H Carbon Dioxide 23.0 Anion Gap 6 BUN 16 Creatinine 1.20 H Estim Creat Clear Calc 40.84 Est GFR (MDRD) Af Amer 57 L Est GFR (MDRD) Non-Af 47 L BUN/Creatinine Ratio 13.3 Glucose 239 H Calcium 8.2 L Vancomycin Trough POC Glucose 173 H 157 H 09/21/19 09/22/19 09/22/19 22:17 06:00 06:00 WBC 9.8 RBC 3.78 L Hgb 9.5 L Hct 31.4 L MCV 83.1 MCH 25.1 L MCHC 30.3 L RDW Std Deviation 46.9 H RDW Coeff of Chelsey 15.5 H Plt Count 190 MPV 10.5 Immature Gran % (Auto) 0.500 Neut % (Auto) 64.2 Lymph % (Auto) 15.5 L Cotton % (Auto) 10.6 H Eos % (Auto) 8.8 H Baso % (Auto) 0.4 Absolute Neuts (auto) 6.3 Absolute Lymphs (auto) 1.51 Nucleated RBC % 0 Sodium 144 Potassium 3.8 Chloride 112 H Carbon Dioxide 26.0 Anion Gap 6 BUN 12 Creatinine 0.95 Estim Creat Clear Calc 51.58 Est GFR (MDRD) Af Amer 75 Est GFR (MDRD) Non-Af 62 BUN/Creatinine Ratio 12.7 Glucose 127 H Calcium 8.3 L Vancomycin Trough POC Glucose 214 H 09/22/19 06:44 WBC RBC Hgb Hct MCV MCH MCHC RDW Std Deviation RDW Coeff of Chelsey Plt Count MPV Immature Gran % (Auto) Neut % (Auto) Lymph % (Auto) Cotton % (Auto) Eos % (Auto) Baso % (Auto) Absolute Neuts (auto) Absolute Lymphs (auto) Nucleated RBC % Sodium Potassium Chloride Carbon Dioxide Anion Gap BUN Creatinine Estim Creat Clear Calc Est GFR (MDRD) Af Amer Est GFR (MDRD) Non-Af BUN/Creatinine Ratio Glucose Calcium Vancomycin Trough POC Glucose 128 H Microbiology 09/18/19 17:30 Blood Culture (Wb) #2 - Right Hand Blood Culture - Preliminary No growth in 48 hours. 09/18/19 17:15 Blood Culture (Wb) - Left Hand Blood Culture - Preliminary No growth in 48 hours. 09/18/19 20:50 Sputum, Induced/Lukens Gram Stain - Final 09/18/19 20:50 Sputum, Induced/Lukens Respiratory Culture - Final Mixed normal respiratory ledy. No Streptococcus pneumoniae, beta-hemolytic Streptococcus or Staphylococcus aureus isolated. Clinical Impression(s) from Imaging Studies Chest X-Ray 09/18/19 17:05 IMPRESSION: Lines and tubes as above. Patchy right basilar opacity is nonspecific and may represent pneumonia in the appropriate clinical setting. Electronically Signed: Graeme Gardner, at 17:45 EDT Tel , Service support , Current Medications Acetaminophen (Tylenol) 650 mg PO Q4H PRN PRN PRN Reason: Pain Score 1-10/Temp > 100.7 F Last Admin: 09/21/19 20:49 Dose: 650 mg Documented by: Albuterol Sulfate (Ventolin Aerosols) 2.5 mg INHALATION Q2H PRN PRN PRN Reason: SOB/Wheezing Albuterol/Ipratropium (Duoneb) 3 ml INHALATION Q4H.RT [facility] Last Admin: 09/22/19 07:20 Dose: Not Given Documented by: Amlodipine Besylate (Norvasc) 10 mg PO DAILY [facility] Last Admin: 09/21/19 08:25 Dose: 10 mg Documented by: Atorvastatin Calcium (Lipitor) 10 mg PO QHS [facility] Last Admin: 09/21/19 22:18 Dose: 10 mg Documented by: Clopidogrel Bisulfate (Plavix) 75 mg PO DAILY [facility] Last Admin: 09/21/19 08:25 Dose: 75 mg Documented by: Dextrose (D50w Syringe) 0 gm IV X1 PRN; Protocol PRN Reason: Hypoglycemia Enoxaparin Sodium (Lovenox) 40 mg SC DAILY [facility] Last Admin: 09/21/19 11:13 Dose: 40 mg Documented by: Glucagon () 1 mg IM .X1 PRN PRN Reason: Hypoglycemia Hydralazine HCl (Apresoline Iv) 10 mg IV Q4H PRN PRN PRN Reason: SBP > 180 Hydralazine HCl (Apresoline) 50 mg PO BID [facility] Last Admin: 09/21/19 22:18 Dose: 50 mg Documented by: Hydrochlorothiazide () 12.5 mg PO DAILY [facility] Last Admin: 09/21/19 11:48 Dose: 12.5 mg Documented by: Sodium Chloride () 250 mls @ 15 mls/hr IV .[id number] PRN PRN Reason: Saline Flush Sodium Chloride () 250 mls @ 15 mls/hr IV .[id number] PRN PRN Reason: Additional IVPB Infusion Insulin Human Lispro (Humalog Kwikpen (Bkc)) 0 unit SC ACHS [facility]; Protocol Last Admin: 09/22/19 06:47 Dose: Not Given Documented by: Isosorbide Mononitrate (Imdur) 60 mg PO DAILY [facility] Last Admin: 09/21/19 08:24 Dose: 60 mg Documented by: Levofloxacin (Levaquin Tablet) 750 mg PO Q48 [facility] Last Admin: 09/21/19 11:13 Dose: 750 mg Documented by: Lisinopril (Zestril) 20 mg PO DAILY [facility] Metoprolol Succinate (Toprol Xl (Beta Stefanie)) 50 mg PO DAILY [facility] Last Admin: 09/21/19 08:24 Dose: 50 mg Documented by: Nitroglycerin (Nitrostat) 0.4 mg SUBLINGUAL Q5M PRN PRN Reason: CARDIAC/CHEST PAIN Nutritional Formula (Lactose Free) (Glucerna Shake) 120 ml PO 4X/DAY [facility] Last Admin: 09/21/19 22:19 Dose: 120 ml Documented by: Prochlorperazine Edisylate (Compazine Iv) 5 mg IV Q4H PRN PRN PRN Reason: Breakthrough Nausea/Vomiting Sodium Chloride () 10 - 40 ml IV UD PRN PRN Reason: SALINE FLUSH Last Admin: 09/21/19 22:19 Dose: 10 ml Documented by: Medical Necessity - Tobacco Use Smoking Status: Former smoker Assessment/Plan All Active Problems (Last Updated 09/04/19 @ 09:10 by Sadie Frazier) Acute respiratory failure with hypoxia and hypercapnia (Acute) Right lower lobe pneumonia (Acute) Severe sepsis (Acute) Non-ST elevation (NSTEMI) myocardial infarction (Resolved 06/22/18) ACS (acute coronary syndrome) (Resolved) Acute diastolic (congestive) heart failure (Resolved) Cellulitis of buttock (Resolved) Chest pain (Resolved) Corneal injury (Resolved) Diverticulitis large intestine (Resolved) Hypertensive urgency (Resolved) Muscle cramps (Resolved) Right wrist pain (Resolved) S/P colonoscopy (Resolved) RECOMMENDATIONS: 1. Continue Levaquin. Plan to complete a total of 7 days of treatment. 2. Encourage incentive spirometer use and mobilize patient as tolerated. 3. Continue scheduled bronchodilators. 4. Continue appropriate prophylaxis. 5. Perform walking oximetry study prior to consideration for discharge home. 6. The patient can likely be discharged home today with plans to follow-up in the pulmonary medicine clinic in 2 weeks. IMPRESSIONS: 1. Acute combined respiratory failure Resolved. Appears to be most likely secondary to healthcare associated pneumonia along with possible obstructive lung disease with exacerbation. The patient has improved from a respiratory perspective and was able to be extubated from invasive mechanical ventilatory support on September 19. She has done well from a respiratory perspective following extubation. The patient is currently on Levaquin therapy with plans to complete for an additional 4 days to complete a 1 week treatment course. Perform walking oximetry study prior to consideration for discharge home. If stable, the patient will be discharged home today with plans to follow-up in the pulmonary medicine clinic in 2 weeks. 2. Possible sleep disordered breathing During the patient's previous hospitalizations he was identified as being high risk for sleep apnea. Orders for empiric BiPAP therapy with naps and nightly have been placed. The patient will require outpatient polysomnogram upon discharge. 3. Coronary artery disease status post recent PCI/heart failure with preserved ejection fraction/pulmonary hypertension Continue baseline cardiac medications. The patient may require additional antihypertensives, given that her pressures remain on the high side. 4. Obesity/diabetes mellitus/hyperlipidemia/peripheral arterial disease Complicates care, management, recovery and prognosis. Continue sliding scale insulin coverage. Physical therapy to work with the patient. This note was generated with stylemarks dictation software. It may contain incorrect words, spelling, and punctuation that were not noted in checking the note before signing. Inpatient E&M: 51618 Subs Hosp L2
[2019-09-22] MEDS: hydroCHLOROthiazide 12.5mg 12.5 MG PO (10:24)
[2019-09-22] MEDS: hydrALAZINE 50 MG Tablet PO ×2 (10:24→15:21)
[2019-09-22] MEDS: amLODIPine 10 MG Tablet PO (10:24)
[2019-09-22] MEDS: Isosorbide Mononitrate 60 MG Tablet PO (10:24)
[2019-09-22] MEDS: Metoprolol(XL)Succ 50 MG Tablet PO (10:25)
[2019-09-22] MEDS: Clopidogrel Bisulfate 75 MG Tablet PO (10:25)
[2019-09-22] MEDS: Lisinopril 20 MG Tablet PO (10:25)
[2019-09-22] MEDS: Glucerna Shake 120 ML LIQUID PO (10:27)
[2019-09-22] MEDS: Enoxaparin 40 MG/0.4 ML Syringe SC (10:28)
[2019-09-22] MEDS: Ipratropium/Albuterol Sulfate 3 ML AMPUL.NEB INHALATION (10:58)
--- NOTE | 2019-09-22 11:12 | CM.UR ---
Participated in interdisciplinary rounds. Discharge plan is home with [facility]. Sister is flying in and is supposed to land around 2pm this afternoon. Dr. Peter explained that per pulm she is ok to go home however Dr. Peter wants to get her BP better under control. Moi Gamino RN, CCM.
--- NOTE | 2019-09-22 11:15 | CASEMGMT ---
Social Work Participating in PCU rounding. Patient plans to discharge to home with home health care service when medically cleared. Patient reporting that patient sister, Evelin is in the air and will arrive at 1400 today. Patient identifying no needs. Richardson JAMESON, GILDA
--- NOTE | 2019-09-22 12:00 | PCM.PN.HOSP ---
Patient Problems: Active and Suspected Problems (Last Updated 09/04/19 @ 09:25 by Yue Holley) Acute respiratory failure with hypoxia and hypercapnia (Acute) Right lower lobe pneumonia (Acute) Severe sepsis (Acute) Reason for Visit: Acute hypoxic respiratory failure. Uncontrolled hypertension Blood pressure was 173/82, 178/60 2 in the morning is controlled currently 116/50. Has been in 150s for last 2 times Objective: Patient blood pressure is still high, 180 systolic even on 4 antihypertensive medications, lisinopril, HCTZ, amlodipine and Toprol. It seems patient blood pressure is uncontrolled probably secondary to obstructive sleep apnea although she had anxiety and panic attack on BiPAP yesterday. Shortness of breath is improved. Vitals/I&O's: Vital Signs Temp Pulse Resp BP Pulse Ox 98.9 F 84 16 180/61 H 84 09/22/19 10:08 09/22/19 11:27 09/22/19 11:27 09/22/19 10:25 09/22/19 11:24 Oxygen Flow Rate (L/min) [ 0 AMBULATING on Room Air] Oxygen Flow Rate (L/min) 1 Oxygen Delivery Method Room Air Weight: 187 lb 13.341 oz Body Mass Index (BMI) 30.4 Finger Stick Blood Glucose 92 Intake and Output for Last 24 Hours 09/20/19 09/21/19 09/22/19 23:59 23:59 23:59 Intake Total 1962.67 / 1962.67 1280 / 1280 100 / 100 Output Total 1750 / 1750 1400 / 1400 Balance 212.67 / 212.67 -120 / -120 100 / 100 General: Alert, Oriented x3, Cooperative HEENT: Atraumatic, PERRLA, EOMI, Normocephalic Neck: Supple, No JVD, Negative Carotid Bruits Lungs: Clear to auscultation, No rhonchi, No wheeze, No rales, Diminished Cardiovascular: Regular rate, Regular Rhythm, Normal S1, Normal S2, No murmurs Abdomen: Bowel Sounds Present, Soft, Non Tender, Non-Distended Extremities: Capillary Refill Less than 3 Seconds, Edema Skin: No rashes, No breakdown Musculoskeletal: No Tenderness to Palpation of Joints or Extremities, Arthritic Changes Neurological: Cranial nerves II-XII grossly intact Psych/Mental Status: Normal Affect, Appropriate Microbiology Past 72 Hours 09/18/19 17:30 Blood Culture (Wb) #2 - Right Hand Blood Culture - Preliminary No growth in 48 hours. 09/18/19 17:15 Blood Culture (Wb) - Left Hand Blood Culture - Preliminary No growth in 48 hours. 09/18/19 20:50 Sputum, Induced/Lukens Gram Stain - Final 09/18/19 20:50 Sputum, Induced/Lukens Respiratory Culture - Final Mixed normal respiratory ledy. No Streptococcus pneumoniae, beta-hemolytic Streptococcus or Staphylococcus aureus isolated. 09/18/19 20:15 Urine Catheter - [place] Streptococcus pneumoniae Antigen (M - Final 09/18/19 20:15 Urine Catheter - [place] Legionella Antigen - Final 09/18/19 20:15 Mucosa - Nose Respiratory Panel (PCR) - Final Laboratory Results 09/21/19 16:16: POC Glucose 157 H 09/21/19 22:17: POC Glucose 214 H 09/22/19 06:00: WBC 9.8, RBC 3.78 L, Hgb 9.5 L, Hct 31.4 L, MCV 83.1, MCH 25.1 L, MCHC 30.3 L, RDW Std Deviation 46.9 H, RDW Coeff of Chelsey 15.5 H, Plt Count 190, MPV 10.5, Immature Gran % (Auto) 0.500, Neut % (Auto) 64.2, Lymph % (Auto) 15.5 L, Moore % (Auto) 10.6 H, Eos % (Auto) 8.8 H, Baso % (Auto) 0.4, Absolute Neuts (auto) 6.3, Absolute Lymphs (auto) 1.51, Nucleated RBC % 0 09/22/19 06:00: Sodium 144, Potassium 3.8, Chloride 112 H, Carbon Dioxide 26.0, Anion Gap 6, BUN 12, Creatinine 0.95, Estim Creat Clear Calc 51.58, Est GFR (MDRD) Af Amer 75, Est GFR (MDRD) Non-Af 62, BUN/Creatinine Ratio 12.7, Glucose 127 H, Calcium 8.3 L 09/22/19 06:44: POC Glucose 128 H Current Medications Acetaminophen (Tylenol) 650 mg PO Q4H PRN PRN PRN Reason: Pain Score 1-10/Temp > 100.7 F Last Admin: 09/21/19 20:49 Dose: 650 mg Documented by: Albuterol Sulfate (Ventolin Aerosols) 2.5 mg INHALATION Q2H PRN PRN PRN Reason: SOB/Wheezing Albuterol/Ipratropium (Duoneb) 3 ml INHALATION Q4H.RT [facility] Last Admin: 09/22/19 10:58 Dose: 3 ml Documented by: Amlodipine Besylate (Norvasc) 10 mg PO DAILY [facility] Last Admin: 09/22/19 10:24 Dose: 10 mg Documented by: Atorvastatin Calcium (Lipitor) 10 mg PO QHS [facility] Last Admin: 09/21/19 22:18 Dose: 10 mg Documented by: Clopidogrel Bisulfate (Plavix) 75 mg PO DAILY [facility] Last Admin: 09/22/19 10:25 Dose: 75 mg Documented by: Dextrose (D50w Syringe) 0 gm IV X1 PRN; Protocol PRN Reason: Hypoglycemia Enoxaparin Sodium (Lovenox) 40 mg SC DAILY [facility] Last Admin: 09/22/19 10:28 Dose: 40 mg Documented by: Glucagon () 1 mg IM .X1 PRN PRN Reason: Hypoglycemia Hydralazine HCl (Apresoline) 50 mg PO TID [facility] Hydralazine HCl (Apresoline Iv) 10 mg IV Q4H PRN PRN PRN Reason: SBP GREATER THAN 170 Hydrochlorothiazide () 25 mg PO DAILY [facility] Hydrochlorothiazide () 12.5 mg PO X1 ONE Stop: 09/22/19 12:00 Sodium Chloride () 250 mls @ 15 mls/hr IV .[id number] PRN PRN Reason: Saline Flush Sodium Chloride () 250 mls @ 15 mls/hr IV .[id number] PRN PRN Reason: Additional IVPB Infusion Insulin Human Lispro (Humalog Kwikpen (Bkc)) 0 unit SC ACHS [facility]; Protocol Last Admin: 09/22/19 06:47 Dose: Not Given Documented by: Isosorbide Mononitrate (Imdur) 60 mg PO DAILY [facility] Last Admin: 09/22/19 10:24 Dose: 60 mg Documented by: Levofloxacin (Levaquin Tablet) 750 mg PO Q48 [facility] Last Admin: 09/21/19 11:13 Dose: 750 mg Documented by: Lisinopril (Zestril) 20 mg PO BID [facility] Metoprolol Succinate (Toprol Xl (Beta Stefanie)) 50 mg PO DAILY [facility] Last Admin: 09/22/19 10:25 Dose: 50 mg Documented by: Nitroglycerin (Nitrostat) 0.4 mg SUBLINGUAL Q5M PRN PRN Reason: CARDIAC/CHEST PAIN Nutritional Formula (Lactose Free) (Glucerna Shake) 120 ml PO 4X/DAY [facility] Last Admin: 09/22/19 10:27 Dose: 120 ml Documented by: Prochlorperazine Edisylate (Compazine Iv) 5 mg IV Q4H PRN PRN PRN Reason: Breakthrough Nausea/Vomiting Sodium Chloride () 10 - 40 ml IV UD PRN PRN Reason: SALINE FLUSH Last Admin: 09/21/19 22:19 Dose: 10 ml Documented by: STROKE Vital Signs/Narrative: Vital Signs Temp Pulse Resp BP Pulse Ox Pulse Ox 09/22/19 11:27 84 16 09/22/19 11:24 84 09/22/19 10:25 85 180/61 H 09/22/19 10:24 85 180/61 H 09/22/19 10:08 98.9 F 85 17 180/61 H 94 09/22/19 08:03 91 Medical Necessity - Tobacco Use Smoking Status: Former smoker Assessment/Plan All Active Problems (Last Updated 09/04/19 @ 09:10 by Sadie Frazier) Acute respiratory failure with hypoxia and hypercapnia (Acute) Right lower lobe pneumonia (Acute) Severe sepsis (Acute) Non-ST elevation (NSTEMI) myocardial infarction (Resolved 06/22/18) ACS (acute coronary syndrome) (Resolved) Acute diastolic (congestive) heart failure (Resolved) Cellulitis of buttock (Resolved) Chest pain (Resolved) Corneal injury (Resolved) Diverticulitis large intestine (Resolved) Hypertensive urgency (Resolved) Muscle cramps (Resolved) Right wrist pain (Resolved) S/P colonoscopy (Resolved) The patient is a 69 year old F with history of acute chest pain and acute kidney injury for which she was admitted in August 2019 and had PCI in mid RCA in June 2018 brought in by EMS for shortness of breath. In ED, patient was afebrile, heart rate in 70s, blood pressure 124/57, intubated currently on 50% FiO2 Chest x-ray independently reviewed shows patchy right basilar opacity. EKG shows normal sinus rhythm at 72 bpm. QTc 451 ms. 1. Acute hypoxic and hypercarbic respiratory failure probably secondary to pneumonia possible COPD exacerbation: ABG postintubation, 7.25/60 2/180 on 70% FiO2. On 09/20: Post extubation. On 2 L of oxygen. On BiPAP with naps and night. Patient requires outpatient polysomnogram after discharge. 2. Right lower lobe pneumonia: Patient is started empirically on broad-spectrum antibiotic vancomycin and Zosyn. Panculture with blood cultures x2, respiratory panel, UA with urine culture, and sputum culture ordered. 09/20: Urinary antigens are negative. Sputum culture reported mixed normal respiratory ledy. Respiratory panel negative. Blood cultures x2 are negative for more than 48 hours 3. Possible COPD, obstructive sleep apnea: Patient quit smoking 25 years ago, possibly started in teenage therefore about 25 pack years of smoking. Bronchodilator, IV Solu-Medrol, chest physiotherapy. 4. History of atypical chest pain with proximal LAD and stenting June 2018 with chronic heart failure with preserved EF/diastolic heart failure, moderate pulmonary hypertension. Patient had recent left heart cath which failed to demonstrate any obstructive lesion. Echo on 09/03/2019 Interpretation Summary The estimated ejection fraction is 65 %. Stage 2 diastolic dysfunction. Trivial mitral valve insufficiency. Mild (1+) eccentric tricuspid valve insufficiency. Right ventricular systolic pressure estimated to be 51 mmHg. Moderate pulmonary hypertension. There is no comparison study available. 5. Recent acute kidney injury suspected due to contrast-induced nephropathy after left heart cath: This was managed with IV fluid, seen by cook helper meat and kidney function improved. Today BUN/creatinine 12/1.16. It was 27/1.6 at time of discharge on 09/07. CBC and BMP ordered 6. Hypertension Blood pressure was high in the morning but later on controlled. 7. Diabetes mellitus type II: Last A1c 9.5% on June 2018. Uncontrolled with hyperglycemia. Accu-Cheks and cover with Humalog sliding scale insulin. 8. Dyslipidemia patient is on statin therapy, continued at home dose 9. Obesity with BMI of 38.2 10. Peripheral arterial disease ?Patient had left peroneal and proximal left posterior tibial angioplasty and left superficial femoral atherectomy and angioplasty 02/28/19 11. DVT prophylaxis ?Lovenox 40 mg subcu daily. Advance directive/living will: Patient does not have advanced living will. Next of kin her friend, Ms. Goldsmith, Luci whom I talked to. Currently she is intubated on ventilator. Full code. Continue CPR, central venous catheter insertion or vasopressor if needed, DC shock and tube feeding. Full code. Total time spent in [id number] encounter in discussion of advanced directive 16 minutes. Patient has been discharged today. Please see discharge summary Laboratory Results 09/18/19 17:06: Sodium 141, Potassium 4.2, Chloride 110 H, Carbon Dioxide 27.0, Anion Gap 4 L, BUN 12, Creatinine 1.16 H, Estim Creat Clear Calc 45.52, Est GFR (MDRD) Af Amer 59 L, Est GFR (MDRD) Non-Af 49 L, BUN/Creatinine Ratio 10.3, Glucose 100, Calcium 8.9, Troponin I 0.019 09/18/19 17:15: WBC 13.1 H, RBC 3.79 L, Hgb 9.7 L, Hct 32.8 L, MCV 86.5, MCH 25.6 L, MCHC 29.6 L, RDW Std Deviation 48.7 H, RDW Coeff of Chelsey 15.3 H, Plt Count 213, MPV 10.4, Immature Gran % (Auto) 1.200 H, Neut % (Auto) 78.2 H, Lymph % (Auto) 11.6 L, Moore % (Auto) 5.9, Eos % (Auto) 2.9, Baso % (Auto) 0.2, Absolute Neuts (auto) 10.2 H, Absolute Lymphs (auto) 1.51, Nucleated RBC % 0 09/18/19 17:15: B-Natriuretic Peptide 156.4 H 09/18/19 17:30: Lactic Acid 1.4 09/18/19 17:40: Specimen Type ART, Sample Site L Brachial, pH 7.25 L, Bicarbonate Actual 27.6 H, POC Total CO2 30, Base Excess 0, O2 Saturation 99, O2 % 70, ABG pCO2 62.5 H, ABG pO2 180 H, Respiration Rate 12, O2 Delivery Device Vent, Vent Mode A-C, Tidal Volume 450, POC PEEP 5, Blood Gas Notified Whom ED MD, Blood Gas Notified Time 1735 Clinical Impression(s) from Imaging Studies Chest X-Ray 09/18/19 17:05 IMPRESSION: Lines and tubes as above. Patchy right basilar opacity is nonspecific and may represent pneumonia in the appropriate clinical setting.
[2019-09-22 12:16] LABS: Bedside Glucose 212 mg/dL (70-110)
[2019-09-22] MEDS: Insulin Lispro 100 UNIT/ML INSULN.PEN SC (12:28)
--- NOTE | 2019-09-22 13:10 | DCINST_ITS ---
- Discharge Diagnoses Current Active Problems: Current Active and Chronic Problems (Last Updated 09/04/19 @ 09:25 by Yue Holley) Acute respiratory failure with hypoxia and hypercapnia (Acute) Right lower lobe pneumonia (Acute) Severe sepsis (Acute) You will use the following diet at home:: Calorie/Carbohydrate Controlled (specify 1200, 1400, etc) - 1800 ADA diet, Cardiac Your food should be the consistency of: Regular Discharge Activity: May Not Drive - for 2 weeks until sees PCP Call your doctor if you observe: Fever of 101 or Higher, Coldness, Increased Pain, Inability to urinate, Inability to have a bowel movement, Shortness of b reath, Dizziness, Swelling in the ankles, Prolonged hiccoughing, Increased palpitations (irregular heartbeat) Additional Instructions: Continue incentive spirometry and chest physiotherapy at home. Outpatient sleep study and PFT and pulmonary clinic visit. Allergies/Adverse Reactions: Allergies acetaminophen [From [place]] Allergy (Verified 09/02/19 23:47) Other hydrocodone [From [place]] Allergy (Verified 09/02/19 23:47) Other metformin Allergy (Verified 09/02/19 23:47) Unknown Medications to take at Discharge insulin aspart U-100 100 unit/mL (3 mL) subcutaneous pen 10 unit SC TIDCM ml 07/26/17 Nitroglycerin (INPATIENT USE) [Nitrostat] 0.4 mg SUBLINGUAL Q5M PRN 06/22/18 Tizanidine HCl [Zanaflex] 4 mg PO Q8H PRN #10 tab 03/27/19 Isosorbide Mononitrate [Isosorbide Mononitrate ER] 60 mg PO DAILY 08/31/19 Albuterol Inhaler [Ventolin Hfa] 2 puff INHALATION Q4H PRN PRN 09/18/19 Amlodipine [Norvasc] 10 mg PO DAILY 09/18/19 Clopidogrel Bisulfate [Clopidogrel] 75 mg PO DAILY 09/18/19 Lisinopril 20 mg PO BID 09/18/19 Metoprolol Succinate [Toprol Xl] 50 mg PO DAILY 09/18/19 Simvastatin 20 mg PO QHS 09/18/19 traMADol [Ultram] 50 mg PO BID PRN PRN 09/18/19 Hydrochlorothiazide [Hctz] 12.5 mg PO DAILY #30 tab 09/22/19 levoFLOXacin tablet [Levaquin tablet] 750 mg PO Q48 #2 tab 09/22/19 The following prescriptions were given: Hydrochlorothiazide [Hctz] 12.5 mg PO DAILY #30 tab Transmission Status: Pending to [facility] levoFLOXacin tablet [Levaquin tablet] 750 mg PO Q48 #2 tab Transmission Status: Pending to [facility] Primary Care Physician: Annette Mckinley MD [Primary Care Provider] - Please follow up with your Primary Care Physician in: IN 1-2 WEEK Test Results: Test results from this visit will be discussed in further detail at your follow- up appointment, if applicable. Please Follow Up With: Carlos Adamson, DO When: KORINA Godfrey in 2 weeks
--- NOTE | 2019-09-22 13:13 | DS.PCM_ITS ---
Discharge Date and Diagnosis - Problem List Patient Problems: Active and Suspected Problems (Last Updated 09/04/19 @ 09:25 by Yue Holley) Acute respiratory failure with hypoxia and hypercapnia (Acute) Right lower lobe pneumonia (Acute) Severe sepsis (Acute) Date of Admission: 09/18/19 Date of Discharge: 09/22/19 - Primary Discharge Diagnosis Active and Suspected Problems (Last Updated 09/04/19 @ 09:25 by Yue Holley) Acute respiratory failure with hypoxia and hypercapnia (Acute) Right lower lobe pneumonia (Acute) Severe sepsis (Acute) - Secondary Discharge Diagnosis Chronic Problems (Last Updated 09/04/19 @ 09:25 by Yue Holley) Atherosclerosis of coronary artery of [place] heart without angina pectoris (Chronic) History of coronary artery stent placement (Chronic 09/03/19) UQT-NAE-Eudn LAD w/ a 3.0 x 38 mm Synergy Stent 06/23/18; PTCA/SIVAN of mid RCA with a 2.25 x 38 Promus Synergy 09/03/2019 Chronic diastolic CHF (congestive heart failure) (Chronic) Peripheral vascular occlusive disease (Chronic) left peroneal and proximal left posterior tibial angioplasty and left superficial femoral atherectomy and angioplasty 02/28/19 Claudication (Chronic) Essential (primary) hypertension (Chronic) Hyperlipidemia (Chronic) Hospital Course and Treatment Operations: None Summary of Care Provided: [] The patient is a 69 year old F with history of acute chest pain and acute kidney injury for which she was admitted in August 2019 and had PCI in mid RCA in June 2018 brought in by EMS for shortness of breath. In ED, patient was afebrile, heart rate in 70s, blood pressure 124/57, intubated currently on 50% FiO2 Chest x-ray independently reviewed shows patchy right basilar opacity. EKG shows normal sinus rhythm at 72 bpm. QTc 451 ms. 1. Acute hypoxic and hypercarbic respiratory failure probably secondary to pneumonia possible COPD exacerbation: ABG postintubation, 7.25/60 2/180 on 70% FiO2. On 09/20: Post extubation. On 2 L of oxygen. On BiPAP with naps and night. Patient requires outpatient polysomnogram after discharge. 09/21: Respiratory status is much better. Discharge home. Interdisciplinary rounds was done and advised to follow-up in pulmonary clinic in 2 weeks for sleep study and PFT. Patient requires home oxygen. Pulse ox 84% on room air on ambulation, 98% ambulating on 4 L of oxygen, 94% on room air at rest. Patient is ambulatory in home and in the community and requires home oxygen with portability. 2. Right lower lobe pneumonia: Patient is started empirically on broad-spectrum antibiotic vancomycin and Zosyn. 09/20: Urinary antigens are negative. Sputum culture reported mixed normal respiratory ledy. Respiratory panel negative. Blood cultures x2 are negative for more than 48 hours 3. Possible COPD, obstructive sleep apnea: Patient quit smoking 25 years ago, possibly started in teenage therefore about 25 pack years of smoking. Bronchodilator, IV Solu-Medrol, chest physiotherapy. 4. History of atypical chest pain with proximal LAD and stenting June 2018 with chronic heart failure with preserved EF/diastolic heart failure, moderate pulmonary hypertension. Patient had recent left heart cath which failed to demonstrate any obstructive lesion. Echo on 09/03/2019 Interpretation Summary The estimated ejection fraction is 65 %. Stage 2 diastolic dysfunction. Trivial mitral valve insufficiency. Mild (1+) eccentric tricuspid valve insufficiency. Right ventricular systolic pressure estimated to be 51 mmHg. Moderate pulmonary hypertension. There is no comparison study available. 5. Recent acute kidney injury suspected due to contrast-induced nephropathy after left heart cath: This was managed with IV fluid, seen by paper reeler and kidney function improved. Today BUN/creatinine 12/1.16. It was 27/1.6 at time of discharge on 09/07. CBC and BMP ordered 6. Hypertension Blood pressure was high in the morning but later on controlled. Discharged on additional hypertensive medication HCTZ 12.5 mg daily. Prescription given 7. Diabetes mellitus type II: Last A1c 9.5% on June 2018. Uncontrolled with hyperglycemia. Accu-Cheks and cover with Humalog sliding scale insulin. 8. Dyslipidemia patient is on statin therapy, continued at home dose 9. Obesity with BMI of 38.2 10. Peripheral arterial disease ?Patient had left peroneal and proximal left posterior tibial angioplasty and left superficial femoral atherectomy and angioplasty 02/28/19 11. DVT prophylaxis ?Lovenox 40 mg subcu daily. Full code. Discharge medication reconciliation done. Discharge follow-up instructions completed. Discharge process discussed with the patient and all questions were answered to patient's satisfaction. Discharged home. Prescription sent to the patient's pharmacy. Total time spent, exact 35 minutes on discharge meds reconciliation, examination, coordination of care with nurses and ancillary staff, review of imaging and blood test and discussion with the patient on follow-up instructions L Microbiology Past 72 Hours 09/18/19 17:30 Blood Culture (Wb) #2 - Right Hand Blood Culture - Preliminary No growth in 48 hours. 09/18/19 17:15 Blood Culture (Wb) - Left Hand Blood Culture - Preliminary No growth in 48 hours. 09/18/19 20:50 Sputum, Induced/[place] Gram Stain - Final 09/18/19 20:50 Sputum, Induced/[place] Respiratory Culture - Final Mixed normal respiratory ledy. No Streptococcus pneumoniae, beta-hemolytic Streptococcus or Staphylococcus aureus isolated. 09/18/19 20:15 Urine Catheter - [place] Streptococcus pneumoniae Antigen (M - Final 09/18/19 20:15 Urine Catheter - [place] Legionella Antigen - Final 09/18/19 20:15 Mucosa - Nose Respiratory Panel (PCR) - Final Laboratory Results 09/21/19 16:16: POC Glucose 157 H 09/21/19 22:17: POC Glucose 214 H 09/22/19 06:00: WBC 9.8, RBC 3.78 L, Hgb 9.5 L, Hct 31.4 L, MCV 83.1, MCH 25.1 L , MCHC 30.3 L, RDW Std Deviation 46.9 H, RDW Coeff of [place] 15.5 H, Plt Count 190, MPV 10.5, Immature Gran % (Auto) 0.500, Neut % (Auto) 64.2, Lymph % (Auto) 15.5 L, Hawkins % (Auto) 10.6 H, Eos % (Auto) 8.8 H, Baso % (Auto) 0.4, Absolute Neuts (auto) 6.3, Absolute Lymphs (auto) 1.51, Nucleated RBC % 0 09/22/19 06:00: Sodium 144, Potassium 3.8, Chloride 112 H, Carbon Dioxide 26.0, Anion Gap 6, BUN 12, Creatinine 0.95, Estim Creat Clear Calc 51.58, Est GFR (MDRD) Af Amer 75, Est GFR (MDRD) Non-Af 62, BUN/Creatinine Ratio 12.7, Glucose 127 H, Calcium 8.3 L 09/22/19 06:44: POC Glucose 128 H 09/22/19 12:09: POC Glucose 212 H Clinical Impression(s) from Imaging Studies Chest X-Ray 09/18/19 17:05 IMPRESSION: Lines and tubes as above. Patchy right basilar opacity is nonspecific and may represent pneumonia in the appropriate clinical setting. Patient Problems: Active and Suspected Problems (Last Updated 09/04/19 @ 09:25 by Yue Holley) Acute respiratory failure with hypoxia and hypercapnia (Acute) Right lower lobe pneumonia (Acute) Severe sepsis (Acute) Subjective: Please see progress note of today. Her blood pressure is controlled. - Physical Exam Vitals/I&O's: Vital Signs Temp Pulse Resp BP Pulse Ox 98.9 F 84 16 116/50 L 84 09/22/19 10:08 09/22/19 11:27 09/22/19 11:27 09/22/19 12:20 09/22/19 11:24 Oxygen Flow Rate (L/min) [ 4 AMBULATION with Oxygen] Oxygen Flow Rate (L/min) [At 0 REST on Room Air] Oxygen Flow Rate (L/min) [ 0 AMBULATING on Room Air] Oxygen Flow Rate (L/min) 1 Oxygen Delivery Method Room Air Weight: 187 lb 13.341 oz Body Mass Index (BMI) 30.4 Finger Stick Blood Glucose 92 Intake and Output for Last 24 Hours 09/20/19 09/21/19 09/22/19 23:59 23:59 23:59 Intake Total 1962.67 / 1962.67 1280 / 1280 580 / 580 Output Total 1750 / 1750 1400 / 1400 Balance 212.67 / 212.67 -120 / -120 580 / 580 Microbiology Past 72 Hours 09/18/19 17:30 Blood Culture (Wb) #2 - Right Hand Blood Culture - Preliminary No growth in 48 hours. 09/18/19 17:15 Blood Culture (Wb) - Left Hand Blood Culture - Preliminary No growth in 48 hours. 09/18/19 20:50 Sputum, Induced/[place] Gram Stain - Final 09/18/19 20:50 Sputum, Induced/[place] Respiratory Culture - Final Mixed normal respiratory ledy. No Streptococcus pneumoniae, beta-hemolytic Streptococcus or Staphylococcus aureus isolated. 09/18/19 20:15 Urine Catheter - [place] Streptococcus pneumoniae Antigen (M - Final 09/18/19 20:15 Urine Catheter - [place] Legionella Antigen - Final 09/18/19 20:15 Mucosa - Nose Respiratory Panel (PCR) - Final Laboratory Results 09/21/19 16:16: POC Glucose 157 H 09/21/19 22:17: POC Glucose 214 H 09/22/19 06:00: WBC 9.8, RBC 3.78 L, Hgb 9.5 L, Hct 31.4 L, MCV 83.1, MCH 25.1 L , MCHC 30.3 L, RDW Std Deviation 46.9 H, RDW Coeff of [place] 15.5 H, Plt Count 190, MPV 10.5, Immature Gran % (Auto) 0.500, Neut % (Auto) 64.2, Lymph % (Auto) 15.5 L, Hawkins % (Auto) 10.6 H, Eos % (Auto) 8.8 H, Baso % (Auto) 0.4, Absolute Neuts (auto) 6.3, Absolute Lymphs (auto) 1.51, Nucleated RBC % 0 09/22/19 06:00: Sodium 144, Potassium 3.8, Chloride 112 H, Carbon Dioxide 26.0, Anion Gap 6, BUN 12, Creatinine 0.95, Estim Creat Clear Calc 51.58, Est GFR (MDRD) Af Amer 75, Est GFR (MDRD) Non-Af 62, BUN/Creatinine Ratio 12.7, Glucose 127 H, Calcium 8.3 L 09/22/19 06:44: POC Glucose 128 H 09/22/19 12:09: POC Glucose 212 H Current Medications Acetaminophen (Tylenol) 650 mg PO Q4H PRN PRN PRN Reason: Pain Score 1-10/Temp > 100.7 F Last Admin: 09/21/19 20:49 Dose: 650 mg Documented by: Albuterol Sulfate (Ventolin Aerosols) 2.5 mg INHALATION Q2H PRN PRN PRN Reason: SOB/Wheezing Albuterol/Ipratropium (Duoneb) 3 ml INHALATION Q4H.RT [facility] Last Admin: 09/22/19 10:58 Dose: 3 ml Documented by: Amlodipine Besylate (Norvasc) 10 mg PO DAILY [facility] Last Admin: 09/22/19 10:24 Dose: 10 mg Documented by: Atorvastatin Calcium (Lipitor) 10 mg PO QHS [facility] Last Admin: 09/21/19 22:18 Dose: 10 mg Documented by: Clopidogrel Bisulfate (Plavix) 75 mg PO DAILY [facility] Last Admin: 09/22/19 10:25 Dose: 75 mg Documented by: Dextrose (D50w Syringe) 0 gm IV X1 PRN; Protocol PRN Reason: Hypoglycemia Enoxaparin Sodium (Lovenox) 40 mg SC DAILY [facility] Last Admin: 09/22/19 10:28 Dose: 40 mg Documented by: Glucagon () 1 mg IM .X1 PRN PRN Reason: Hypoglycemia Hydralazine HCl (Apresoline) 50 mg PO TID [facility] Hydralazine HCl (Apresoline Iv) 10 mg IV Q4H PRN PRN PRN Reason: SBP GREATER THAN 170 Hydrochlorothiazide (Hctz) 25 mg PO DAILY [facility] Sodium Chloride () 250 mls @ 15 mls/hr IV .[id number] PRN PRN Reason: Saline Flush Sodium Chloride () 250 mls @ 15 mls/hr IV .[id number] PRN PRN Reason: Additional IVPB Infusion Insulin Human Lispro (Humalog Kwikpen (Bkc)) 0 unit SC ACHS [facility]; Protocol Last Admin: 09/22/19 12:28 Dose: 4 u Documented by: Isosorbide Mononitrate (Imdur) 60 mg PO DAILY [facility] Last Admin: 09/22/19 10:24 Dose: 60 mg Documented by: Levofloxacin (Levaquin Tablet) 750 mg PO Q48 [facility] Last Admin: 09/21/19 11:13 Dose: 750 mg Documented by: Lisinopril (Zestril) 20 mg PO BID [facility] Metoprolol Succinate (Toprol Xl (Beta Stefanie)) 50 mg PO DAILY [facility] Last Admin: 09/22/19 10:25 Dose: 50 mg Documented by: Nitroglycerin (Nitrostat) 0.4 mg SUBLINGUAL Q5M PRN PRN Reason: CARDIAC/CHEST PAIN Nutritional Formula (Lactose Free) (Glucerna Shake) 120 ml PO 4X/DAY [facility] Last Admin: 09/22/19 10:27 Dose: 120 ml Documented by: Prochlorperazine Edisylate (Compazine Iv) 5 mg IV Q4H PRN PRN PRN Reason: Breakthrough Nausea/Vomiting Sodium Chloride () 10 - 40 ml IV UD PRN PRN Reason: SALINE FLUSH Last Admin: 09/21/19 22:19 Dose: 10 ml Documented by: Discharge Activity: May Not Drive - for 2 weeks until sees PCP Call your doctor if you observe: Fever of 101 or Higher, Coldness, Increased Pain, Inability to urinate, Inability to have a bowel movement, Shortness of breath, Dizziness, Swelling in the ankles, Prolonged hiccoughing, Increased palpitations (irregular heartbeat) Home Medications: Medications to take at Discharge insulin aspart U-100 100 unit/mL (3 mL) subcutaneous pen 10 unit SC TIDCM ml 07/26/17 Nitroglycerin (INPATIENT USE) [Nitrostat] 0.4 mg SUBLINGUAL Q5M PRN 06/22/18 Tizanidine HCl [Zanaflex] 4 mg PO Q8H PRN #10 tab 03/27/19 Isosorbide Mononitrate [Isosorbide Mononitrate ER] 60 mg PO DAILY 08/31/19 Albuterol Inhaler [Ventolin Hfa] 2 puff INHALATION Q4H PRN PRN 09/18/19 Amlodipine [Norvasc] 10 mg PO DAILY 09/18/19 Clopidogrel Bisulfate [Clopidogrel] 75 mg PO DAILY 09/18/19 Lisinopril 20 mg PO BID 09/18/19 Metoprolol Succinate [Toprol Xl] 50 mg PO DAILY 09/18/19 Simvastatin 20 mg PO QHS 09/18/19 traMADol [Ultram] 50 mg PO BID PRN PRN 09/18/19 Hydrochlorothiazide [Hctz] 12.5 mg PO DAILY #30 tab 09/22/19 levoFLOXacin tablet [Levaquin tablet] 750 mg PO Q48 #2 tab 09/22/19 Following Prescrptions Were Given to Patient: Hydrochlorothiazide [Hctz] 12.5 mg PO DAILY #30 tab Transmission Status: Received by MARTHA MESSINA [facility] levoFLOXacin tablet [Levaquin tablet] 750 mg PO Q48 #2 tab Transmission Status: Received by MARTHA OROKarmen [facility] Primary Care Physician: Annette Mckinley MD [Primary Care Provider] - Please follow up with your Primary Care Physician in: IN 1-2 WEEK Please Follow Up With: Carlos Adamson, DO When: KORINA Godfrey in 2 weeks Medical Necessity - Tobacco Use Smoking Status: Former smoker Meaningful Use Info Meaningful Use Diagnoses (Choose all that apply): None applicable Inpatient E&M: 51459 Disch Hosp
--- NOTE | 2019-09-25 14:20 | CASEMGMT ---
DC DATE: 09.22.2019 DC DISPOSITION: Home DC DIAGNOSIS: Pneumonia LACE/STRATA: 15/ F/U APPTS MADE PRIOR TO DC: no, pt states she will make appointments tomorrow when [facility] nurse comes out. RN CM offered to assist, but pt declined. PRESCRIPTIONS ACQUIRED BY PT: yes Intro role of CM to patient via phone. Pt states she is doing well, no concerns and [facility] nurse is seeing her. No care improvement suggestions given. Priscilla TORRESN RN ACM
== END 2019-09-22 16:50 | disposition home or self-care (01) | DRG 871 ==
LOC: ED 17:20 → ICU 19:45 → PCU 09-21 18:20
PROVIDERS: Admitting Provider Internal Medicine; Emergency Provider Emergency Medicine; PCP Internal Medicine; Visit Provider Internal Medicine
DX: A41.9 Sepsis, unspecified organism (principal); J96.01 Acute respiratory failure with hypoxia; J18.9 Pneumonia, unspecified organism; J96.02 Acute respiratory failure with hypercapnia; J44.0 Chronic obstructive pulmonary disease with (acute) lower respiratory infection; J44.1 Chronic obstructive pulmonary disease with (acute) exacerbation; I50.32 Chronic diastolic (congestive) heart failure; R65.20 Severe sepsis without septic shock; E78.5 Hyperlipidemia, unspecified; E66.9 Obesity, unspecified; I25.10 Atherosclerotic heart disease of native coronary artery without angina pectoris; I11.0 Hypertensive heart disease with heart failure; E11.51 Type 2 diabetes mellitus with diabetic peripheral angiopathy without gangrene; E11.65 Type 2 diabetes mellitus with hyperglycemia; I27.20 Pulmonary hypertension, unspecified; Z79.4 Long term (current) use of insulin; Z87.891 Personal history of nicotine dependence; Z95.5 Presence of coronary angioplasty implant and graft; Z68.30 Body mass index [BMI] 30.0-30.9, adult
CPT/HCPCS: 31500; 31720; 36415; 36600; 51702; 71045; 80048; 80076; 80202; 82803; 82962; 83605; 83735; 83880; 84443; 84484; 85025; 87040; 87070; 87205; 87449; 87633; 87641; 93005; 94002; 94003; 94640; 94660; 94762; 97116; 97162; 97163; 97167; 97530; 97802; 97803; 99251; 99285; J7030; J7040; J7050; A4216; G0463

== ENCOUNTER → 2019-11-15 | Outpatient (CLI) | payer MEDICARE, OTHER, SELFPAY ==
[2019-09-03 08:14] VITALS: BMI 35.0
[2019-09-28 10:25] VITALS: BMI 34.0
--- NOTE | 2019-11-15 10:08 | PCM.CR.HP2 ---
CR - History & Physical - General Arrival date:: 11/15/19 Arrival time:: 10:00 Date of Referral:: 09/03/19 Date of CR Evaluation:: 11/15/19 Referring Physician: BRIDGET Primary Diagnosis: PCI W/STENTING - History of Present Cardiac Event Onset Date: Enter Onset Date of cardiac illnesses in Comment field below Current stable Angina Pectoris:: No Acute Myocardial Infarction within 12 months:: Yes - 09/03/2019 PTCA or coronary stenting:: Yes - 09/03/2019 Type of Symptoms:: CHEST PAIN, UNSPECIFIED Interventions with present event:: PNEUMONIA AT THE SAME TIME OF HAVING THE STENTS. - Medications Home Medications: Ambulatory Orders Medication Instructions Recorded insulin aspart U-100 100 unit/mL 10 unit SC TIDCM ml 07/26/17 (3 mL) subcutaneous pen Nitroglycerin (INPATIENT USE) 0.4 mg SUBLINGUAL Q5M PRN 06/22/18 [Nitrostat] Tizanidine HCl [Zanaflex] 4 mg PO Q8H PRN #10 tab 03/27/19 Isosorbide Mononitrate [Isosorbide 60 mg PO DAILY 08/31/19 Mononitrate ER] Albuterol Inhaler [Ventolin Hfa] 2 puff INHALATION Q4H PRN PRN 09/18/19 Amlodipine [Norvasc] 10 mg PO DAILY 09/18/19 Clopidogrel Bisulfate [Clopidogrel] 75 mg PO DAILY 09/18/19 Lisinopril 20 mg PO BID 09/18/19 Metoprolol Succinate [Toprol Xl] 50 mg PO DAILY 09/18/19 Simvastatin 20 mg PO QHS 09/18/19 traMADol [Ultram] 50 mg PO BID PRN PRN 09/18/19 - Allergies Allergies/Adverse Reactions: Allergies acetaminophen [From [place]] Allergy (Verified 09/28/19 10:25) Other hydrocodone [From [place]] Allergy (Verified 09/28/19 10:25) Other metformin Allergy (Verified 09/28/19 10:25) Unknown - Sleep Disorder Evaluation Hx of Sleep Apnea: No Do you snore loudly (louder than talking or can be heard through closed doors)?: No Do you often feel tired/ fatigued/ sleepy during daytime?: Yes Has anyone observed you stop breathing during sleep?: No History of Hypertension (for STOP score): Yes STOP Results: Positive Advanced Directives - Advanced Directives Power of Outside Production Inspector: Yes - SISTER IS P.O.A. Living Will: Yes Advance Directives Information Provided: No Advance Directives on File: Yes DNR Order?:: No - MOLST See MOLST form: No Past Medical History - Past Medical Illness Medical History: Past Medical History (Last Reviewed 09/28/19 @ 12:[address] Sylvain Mcdowell MD) Atherosclerosis of coronary artery of [place] heart without angina pectoris (Chronic) I25.10 Non-ST elevation (NSTEMI) myocardial infarction (Resolved) Onset Date: 06/22/18 I21.4 Chronic diastolic CHF (congestive heart failure) (Chronic) I50.32 Peripheral vascular occlusive disease (Chronic) I73.9 left peroneal and proximal left posterior tibial angioplasty and left superficial femoral atherectomy and angioplasty 02/28/19 Claudication (Chronic) I73.9 Essential (primary) hypertension (Chronic) I10 Hyperlipidemia (Chronic) E78.5 Anxiety F41.9 Back problem M53.9 Chronic kidney disease (CKD) N18.9 Diabetes mellitus, type II E11.9 Hepatitis K75.9 Obesity E66.9 PAD (peripheral artery disease) I73.9 Acute diastolic (congestive) heart failure (Resolved) I50.31 Corneal injury (Resolved) S05.8X9A Diabetes type 2, controlled E11.9 Dx : 1997 Last exacerbation : DKA : never Hypoglycemic episode : never ER visit : never Right wrist pain (Resolved) M25.531 Abnormal ultrasound of lower extremity (Inactive) R93.6 - Past Surgical History Surgical History: Past Surgical History (Last Reviewed 09/28/19 @ 12:[address] Sylvain Mcdowell MD) History of coronary artery stent placement (Chronic) Onset Date: 09/03/19 Z95.5 [id number] LAD w/ a 3.0 x 38 mm Synergy Stent 06/23/18; PTCA/SIVAN of mid RCA with a 2.25 x 38 Promus Synergy 09/03/2019 History of total abdominal hysterectomy Z98.890, Z90.710 History of angioplasty of peripheral vessel Onset Date: 02/28/19 Z98.62 left peroneal and proximal left posterior tibial angioplasty and left superficial femoral atherectomy and angioplasty 02/28/19 S/P colonoscopy (Resolved) Z98.890 Surgical History: - - Total abdominal hysterectomy, PCI x1, angioplasty left lower extremity, right rotator cuff repair, left knee arthroscopic surgery. - Family History Summary Family History: Family History (Last Reviewed 09/28/19 @ 12:[address] Sylvain Mcdowell MD) Mother Arthritis Father Arthritis Social History - Smoking History Smoking Status: Former smoker - QUIT SMOKING IN 1998 - Alcohol Use Alcohol Usage: No - Substance Abuse Hx Substance Use: No - Occupation Occupation (List type of work in comments):: Retired - Hobbies, Recreation, Social Activities Hobbies: Sewing - CROCHETING, SEWING, NEEDLE WORK, Reading, Watch TV, Other Recreational Activities: I am able to engage in all my recreational activities - BUT HAVE TO DO THEM IN SMALL AMOUNTS OF TIME Social Environment - Status Marital Status: - Current Living Arrangements Living Environment:: Alone - Children How many children do you have?: 2 Do any of your children live nearby?: No - [place] - Safety Do you feel safe in your surroundings?: Yes - Assistance Do you need any assistance at home?: NO Review of Systems - Review of Systems Hints: Right click = Denies (Slash). Left click = Reports ([place]) Review of Present Symptoms: Reports: Heart Arrhythmia/Irregularities - NORMAL SINUS RHYTHM W/SINUS ARRYTHMIA, Appetite - Normal, Appetite - Special Diet, Sleep - Normal. Denies: Shortness of Breath at Rest, Shortness of Breath with Exertion, Angina, Dizziness/Lightheadedness, Fatigue - Pain Is Patient Pain Free?: Yes Pain Location: none Risk Factor Assessment - Vital Signs Respiratory Rate: 20 Pulse Ox: 98 Blood Pressure: 155/78 - Pulse Pulse Rate: 80 - Hypertension Blood Pressure Sitting - Left Arm: 155/78 - Blood Cholesterol/Lipids Total Cholesterol (mg/dL) Goal = less than 200 mg/dL: 185 HDL Cholesterol (mg/dL) Goal = less than 40 mg/dL: 57 LDL Cholesterol (mg/dL) Goal = less than 70 mg/dL: 106 Triglycerides (mg/dL) Goal = less than 150 mg/dL: 109 - Diabetes Diabetic History: Type II, Insulin Dependent Nutrition Referral for Diabetes: Yes - Obesity Height: 5 ft 1 in Weight:: 191 lb Weight in Pounds: 191.0 lbs Weight Source: Estimated by Patient Body Mass Index (BMI): 36.1 Nutritional Referral for Obesity: Yes - Physical Inactivity Physical Inactivity: None - Risk Stratification Risk Guidelines: Lowest Risk: Risk Factor for Dyslipidemia, Risk Factor for Diabetes, Risk Factor for Sedentary Lifestyle, Risk Factor for Depression, Highest Risk: Risk Factor for Obesity - For Smoking Smoking Risk Guidelines: Smoking Low Risk: None or quit greater than 6 months ago. Smoking Moderate Risk: Smoker or quit 6 months or less ago. Smoking High Risk: Smoker - For Dyslipidemia Dyslipidemia Risk Guidelines: Low Risk: Moderate Risk: High Risk: 15-25% fat 25.1-29% fat >/= 30% fat. <7% sat fat 7-9% sat fat >9% sat fat. <150 mg chol 150-299 mg chol >/= 300 mg chol. LDL <100 LDL 100-129 LDL >/= 130. Chol/HDL ratio <5.0 Chol/HDL ratio 5.0-6.0 Chol/HDL ratio >6.0. Triglycerides <100 Triglycerides 100-149 Triglycerides >/= 150 - For Diabetes Mellitus Diabetes Risk Guidelines: Diabetes Low Risk: HgA1c <6.5% and/or FBG <120. Diabetes Moderate Risk: HgA1c 6.6-7.9% and/or FBG 120-180. Diabetes High Risk: HgA1c >/= 8% and/or FBG >180 - For Obesity/Overweight Obesity/Overweight Risk Guidelines: Obesity Low Risk: BMI <25.0. Obesity Moderate Risk: BMI 25-29.9. Obesity High Risk: BMI >/= 30.0 - For Hypertension Hypertension Risk Guidelines: Hypertension Low Risk: Systolic <120 and Diastolic <80. Hypertension Moderate Risk: Systolic 120-139 and Diastolic 80-89. Hypertension High Risk: Systolic >/= 140 and Diastolic >/= 90 - For Sedentary Lifestyle Sedentary Lifestyle Risk Guidelines: Sedentary Lifestyle Low Risk: >/= 1,500 kcal/week. Sedentary Lifestyle Moderate Risk: 700-1,499 kcal/week. Sedentary Lifestyle High Risk: < 700 kcal/week - For Depression Depression Risk Guidelines: Depression Low Risk: Not clinically depressed. Depression Moderate Risk: Mildly depressed. Depression High Risk: Clinically depressed - Family History Family History: Family History (Last Reviewed 09/28/19 @ 12:[address] Sylvain Mcdowell MD) Mother Arthritis Father Arthritis Motivation - Motivation to Participate On a scale of 1 to 10, how prepared are you to commit to attending program?: 10 What do you see as barriers to successfully being able to complete the program?: NONE What do you see as the benefits of succesfully completing the program? In other words, what do you hope to get out of participating in the program?: STRONGER HEALTHIER Are there issues you are dealing with that will interfere with completing the program?: LOWER BACK AND HIPS; Do you have a spouse or signficant other, family or friends who will help support you to complete the program?: YES
--- NOTE | 2019-11-15 10:09 | CR.ITP_ITS ---
Diagnosis - General Information Admitting Diagnosis: NSTEMI, PCI W/CORONARY STENT Secondary Diagnosis: I10, E78.5, DM TYPE II, I25.10 Personal Learning Style:: Audio/Visual, Written Barriers to Learning: Vision Impairment Stage of change r/t lifestyle modifications:: Action Gave educational material for:: Treating Heart Disease, Emotions & Heart Disease, Stress Management & Relaxation, Sleep Disorders & Heart Disease, How The Heart Works, What it means to have Heart Disease, How Coronary Artery Disease is Diagnosed, Heart Procedures, What Heart Medications Do, Risk Factors & Modifications, Living an Active Life, Nutrition - Education/Goals Individual Counseling: Initial Assessment: Abnormal Cholesterol Levels, High Blood Pressure, Overweight/Obesity, Diabetes, Hypertension, Sedentary Lifestyle Cardiac Rehabilitation Goals: 1. Maintain the individual as the primary focus of care. 2. To improve the patient's quality of life. 3. Identification of cardiac risk factors and provide cardiac risk factor management. 4. Enhance the psychosocial status of the patient. 5. Reconditioning enough to allow the patient to resume customary activities. 6. Control symptoms of cardiac disease Personal Goals: Initial Assessment: Improve management of stress and emotions, Improve energy level, Participate in home exercise program, Get back to work, or to resume activities faster, Improve knowledge of cardiac disease, Improve muscle strength and endurance, Improve diet and eating habits (eat healthier), Control risk factors (learn risk factor modification) Scale for measuring improvement of personal goals: Enter appropriate number in Comments. 2 = Unchanged. 3 = Slightly Better. 4 = Moderate Improvement. 5 = Met my Goal - Diagnosis & Disease Process Outcomes/Goals: Pt IDs own risk factors & lifestyle modifications by Session 10, Verbalizes symptoms of angina & response by session 3., Pt independently manages Plan/Interventions: Assist Pt to ID & engage in lifestyle modification to reduce CVD risk, Instruct on individual risk factors, Review symptoms of angina & emergency actions, Review secondary diagnosis & identify educational needs. - Safety Referral to Physical Therapy: No Referral to [facility] Case Management: No Fall Risk Assessed:: Yes Assistive Devices:: Wheelchair - FOR LONG DISTANCES DUE TO LOWER BACK PAIN AND HIPS ONLY Exercise - Initial Assessment - Visit Date of Eval: 11/15/19 - SCHEDULED TO START 11/26/2019 Mets: Pre-: >5 METS for 30 minutes by discharge - Physician Prescribed Exercise Modalities: Treadmill, Airdyne, NuStep, SciFit Frequency: 3x/week for 12 weeks [36 sessions] Intensity: 60-80% of age predicted maximum heart rate reserve Current METSs:: 3 Target Heart Rate:: 97-127 EKG Type: NSR W/SINUS ARRYTHMIA PROLONGED QT - Outcomes & Goals Goals:: Verbalizes understanding of THR, RPE & goal METS by session 6, Documents in home exercise log/reports 30 min aerobic 5 day/wk by DC, Demonstrates accurate pulse taking by DC - Intervention & Plan Exercise Program Goals: Instruct on personal THR & RPE, Instruct on MET level & personal MET goal, Instruct on home exercise - Physical Activity Home Exercise Physical Activity - Home Exercise: Safe Exercise, Warm-up, Self-monitoring, Cool-Down, Home Exercise > 30 min Daily, Sitting Time <3 hours/daily - Outcomes & Goals Outcomes/Goals: Demonstrates correct Warm-up/exercise Cool-Down (S3) if = 2.5 METs, Verbalizes symptoms of exercise intolerance by Session 3 (S3), Demonstrate safe equipment use (S3) & follows exercise prescrition (6) - Intervention & Plan Plan/Intervention: Instruct warm-up & cool-down if exercising at > 2 METs, Instruct on symptoms of exercise intolerance & actions to take, Instruct & monitor on saf, Assess intial functional capacity & safety risk Nutrition - Initial Assessment - Program Goals Nutrition Program Goals: LDL <100 optimal. 100 - 129 Near optimal. 130 - 159 Borderline High. 160 - 189 High. Total Cholesterol <200 desirable. 200 - 239 Borderline High. >/= 240 High. HDL < 40 Low >/=60 High. Triglycerides <150 desirable. <199 optimal. VlDL 5 - 40. HgbA1C <7%. BMI <25 Patient has diagnosis of Hyperlipidemia (ICD E78)?: Yes - Visit Date of Assessment:: 11/15/19 - Cholesterol/Lipids Triglycerides (mg/dL): 109 Total Cholesterol (mg/dL): 185 LDL Cholesterol (mg/dL): 106 HDL Cholesterol (mg/dL): 57 Determine presence & major risk factors that modify LDL goal: Hypertension or hypertensive medication, Age men > 45 years; women >/= 55 years Outcomes/Goals: Pt IDs own risk factors & lifestyle modifications by Session 10, Verbalizes symptoms of angina & response by session 3., Pt independently manages Intervention/Plan: Instruct on personal lipid levels & lipid goals/NCEP guidelines, Instruct on cholesterol Referral to dietitian:: Yes - Diabetes (Other Core Measures) Diabetes Type: Diagnosis Type II ICD-10 E11 Fasting blood glucose:: 190 Insulin dependent injection/pump?: Yes - INSULIN DAILY Do you monitor your blood sugar at home?: Yes Referral to Diabetic Clinic:: Yes Outcomes/Goals:: Able to state symptoms of, Able to state, Able to state Intervention/Plan:: Instruct on, Refer to, Instruct on - Weight Mgt (Other Care) Not Applicable: Yes Height: 5 ft 1 in Weight:: 185 lb BMI: 34.9 Diagnosis Overweight/Obesity BMI> 30% ICD-10 E66: Yes Diagnosis High BMI/Morbid Obesity BMI> 35% ICD-10 Z68: Yes Outcomes/Goals: Pt sets, maintains & shows weight loss goal & trend during rehab Intervention/Plan: Instruct on ideal BMI & set weight loss goal w/patient, Assist pt to ID & incorporate diet changes for weight loss by S9, Refer to Structured Weight Loss program as appropriate, Encourage goal of using 250- 300dcal per session for weight loss - Healthy Eating Habits Outcomes/Goals:: Consume diet rich in vegs,fruits,whole grain/high fiber,fish,lean meat, Limit sat/trans fats,cholesterol & added salts & sugars Intervention/Plan:: Assess current eating habits - Education Gave educational materials for:: Signs & symptoms of hypoglycemia, Signs & symptoms of hyperglycemia, Relate diabetes to coronary artery disease, Healthy eating Medical - Initial Assessment - Visit Date of Eval: 11/15/19 - Medication Compliance Preventative Medication(s):: Aspirin, Clopidogrel/P2Y12 inhibit, Statin/lipid H/O mental health issues: depression, anxiety, or addiction?: No Doesn?t believe in the benefits of treatment?: No Believes medications are unnecessary or harmful?: No Has a concern about medication side effects?: No Expresses concern over the cost of medications?: No Outcomes/Goals: Verbalizes medications,desired effect & common side effects @ DC, Pt self-reports following medication regimen, Keeps card in wallet w/medications listed by DC Interventions/plans: Instruct on medication effects & side effects, Review medication list w/patient every two weeks, Instruct importance of taking meds as ordered & assist problem solving - Tobacco Use Tobacco Use: Non-smoker - Hypertension Hypertension Diagnosis:: Hypertension ICD-10 I10 Resting Blood Pressure:: 155/78 [place] Heart [employer] Hypertension Guidelines: [place] Heart Association Hypertension Guidelines. Normal BP Less than 120/80. Elevated BP 120/80. Hypertension Stage 1: BP 130-139/80-89. Hypertesnion Stage 2: BP 140 or higher/90 or higher. Hypertension Crisis: BP higher than 180/120 Outcomes/Goals: Able to verbalize/achieve optimal blood pressure <130/80, Incorporates diet changes & exercise for blood pressure control by DC Interventions/plan: Instruct on optimal blood pressure, hypertension & medications, Instruct on effects of sodium, alcohol, stress, exercise &hypertension - Tobacco Cessation Referral Smoking Cessation Referral:: No Individual Education/Counseling:: No Education Schedule Given:: Yes Psychosocial - Initial Assess - VIsit Date of Eval: 11/15/19 Not Applicable: Yes History of previous Mental disease:: No - Target Goals Target Goals: Assess presence or absence of depression. Using a valid screening tool, maximizes coping skills. Positive support system - Psychosocial Test Tool Used:: [employer] QOL Cardiac, PHQ-9 Questionnaire phq-9 Severity: Severity. 1-4 Minimal Depression. 5-9 Mild Depression. 10-14 Moderate Depression. 15-19 Moderately Sever Depression. 20-27 Severe Depression. Rule: - Referral to Behavioral Health PS - Interventions: Yes Attend Stress Management Classes, No Referral to Behavioral Health if PHQ-9 score >9:, No Referral to [facility], No Referral to Physician if PHQ-9 if score is 5-9: - Outcomes/Goals: See list Psychosocial Outcomes/Goals:: ID's personal stressors & 2 strategies to manage stress by discharge - Intervention/Plan: See List Interventions/Plan:: Assess stressors,coping strategies & signs of derpression on admission, Instruct/assist pt to develop coping & personal stress Mgt strategies, Instruct patient to recognize signs & symptoms of depression, Instruct patient to recog Patient Health Questionnaire Initial Assessment 1. Little interest or pleasure in doing things: More than half the days 2. Feeling down, depressed, or hopeless: Not at all 3. Trouble falling or staying asleep, or sleeping too much: Several days 4. Feeling tired or having little energy: More than half the days 5. Poor appetite or overeating: Not at all 6. Feeling bad about yourself -- or that you are a failure or have let yourself or your family down: Not at all 7. Trouble concentrating on things, such as reading the newspaper or watching television: Not at all 8. Moving or speaking so slowly that other people could have noticed. Or the opposite - being so fidgety or restless that you have been moving around a lot more than usual: Not at all 9. Thoughts that you would be better off , or of hurting yourself in some way: Not at all How difficult have these problems made it for you to do your work, take care of things at home, or get along with other people?: Not difficult at all Total Score: 5 JANE-Q SV Test - Statements CAD is a disease of the arteries in the heart: False Examples of risk factors for heart disease: True Angina is chest pain or discomfort: True The benefits of resistance training include: True Eating more meat and dairy products: False Anti-platelet medications such as aspirin are important: True The only effective way to manage stress: True An exercise warm-up slowly increases heart rate: True Prepared, processed foods usually have high sodium: True Depression is common after a heart attack: True The statin medications lower cholesterol: True To control blood pressure, lower the amount of sodium: True If someone gets chest discomfort during walking: False Transfats are partially hydrogenated vegetable oils: True Sleep apnea that is not treated increases the risk: True To control cholesterol, one should become a vegetarian: False Someone knows if he/she is exercising at the right level: True Diabetes cannot be prevented with exercise & health eating: False Stress is a large risk for heart attack: True A diet that can help lower blood pressure is rich in: True - Total Score Total Correct Responses: 18 Self-Efficacy Initial Assessment We would like to know how confident you are in doing certain activities. Please select your confidence level for:: Select your confidence level for the following using the scale 1-10 where 1 is not at all confident and 10 is totally confident. Your score is the average of all 6 responses. Fatigue: How confident are you that you can keep the fatigue caused by your disease from interfering with the things you want to do? Select Number: 10 Physical Discomfort or Pain: How confident are you that you can keep the physical discomfort or pain of your disease from interfering with the things you want to do? Select Number: 10 Emotional Distress: How confident are you that you can keep the emotional distress caused by your disease from interfering with the things you want to do? Select Number: 10 Other Symptoms or Health Problems: How confident are you that you can keep other symptoms or health problems from interfering with the things you want to do? Select Number: 8 Different Tasks and Activities: How confident are you that you can do the diff erent tasks and activities needed to manage your health condition so as to reduce your need to see a doctor? Select Number: 10 Medication: How confident are you that you can do things other than just taking medication to reduce how much your illness affects your everyday life? Select Number: 10 Total Score:: 9 Nutrition Survey - Nutrition Survey Instructions Scoring Instructions: Scoring is as follows: Yes = 1 points. No = 0 point. Patient score that is >/=12 is considered to be at potential nutritional risk and could benefit from a referral to a registered dietitian. - Nutrition Survey Initial Have you lost >10 lbs over the past 2 months without trying?: No Are you following a special diet at home for diabetes, low fat, or low salt?: Yes Are you interested in meeting with a dietitian for help understanding your diet?: No Do you eat less than 3 meals a day?: Yes Do you eat fatty meats (ham[place], sausage, ribs, etc), fried foods, desserts, large amounts of salad dressings, margarine, butter, or cheese most days?: Yes Do you have food allergies? [Enter types in comment field]: No Do you eat in restaurants more than 3 times a week?: No Do you season food with salt, seasoning salt, or garlic salt?: No Do you used canned, boxed, frozen meals, or soups, seasoning packets?: No Total Score:: 3
[2019-11-15 10:32] VITALS: BP 155/78; PULSE 80; RESP 20; O2SAT 98; BMI 36.1
[2019-11-15 10:59] VITALS: BP 155/78; BMI 34.9
== END | disposition home or self-care (01) ==
LOC: CR 10:02
PROVIDERS: PCP Internal Medicine; Visit Provider Internal Medicine Cardiovascular Disease
DX: Z95.5 Presence of coronary angioplasty implant and graft (principal)

== ENCOUNTER 2019-11-19 12:34 | Observation (INO) | payer MEDICARE, OTHER, SELFPAY ==
[2019-11-15 10:32] VITALS: BMI 36.1
[2019-11-15 10:59] VITALS: BMI 34.9
[2019-11-19] VITALS (9 sets, daily range): BP systolic 119–185; BP diastolic 68–97; PULSE 69–88; RESP 14–22; TEMP 36.7–37.2; O2SAT 95–98; BMI 33.6; BMI 33.4
--- NOTE | 2019-11-19 13:08 | EKG12_ITS ---
Test Reason : Blood Pressure : / mmHG Vent. Rate : 072 BPM Atrial Rate : 072 BPM P-R Int : 158 ms QRS Dur : 086 ms QT Int : 400 ms P-R-T Axes : 049 -09 101 degrees QTc Int : 438 ms Normal sinus rhythm T wave abnormality, consider lateral ischemia Abnormal ECG Confirmed by DOTTIE SMITH ([id number]), videotape editor JAMES MULLEN ([id number]) on 11/26/2019 1:44:02 PM Referred By: DARIO Confirmed By:DOTTIE SMITH
--- NOTE | 2019-11-19 13:08 | CT_ITS ---
STUDY: CT BRAIN WITHOUT CONTRAST REASON FOR EXAM: Female, 69 years old. DIZZINESS AND ATAXIA SINCE YESTERDAY. RADIATION DOSAGE (If Supplied By Facility): CTDIvol = ( 44.99 ) mGy, DLP = ( 745.49 ) mGycm TECHNIQUE: Transaxial CT imaging of the brain was performed without administration of intravenous contrast material. Individualized dose optimization techniques were used for this CT. COMPARISON: No relevant priors. FINDINGS: Normal soft tissue structures. There is hyperostosis frontalis internus. There is mild cerebral atrophy with widening of the extra-axial spaces and ventricular dilatation. There are areas of decreased attenuation within the white matter tracts of the supratentorial brain, consistent with microvascular disease changes. Normal basal ganglia and thalami. Normal brainstem. Normal cerebellum. There is no intracranial hemorrhage. There are no findings of an acute ischemic infarction. Atherosclerotic calcification of the cavernous portions of the internal carotid arteries bilaterally. Normal visualized paranasal sinuses. CT/Brain/Head without Contrast IMPRESSION: Chronic involutional changes of the brain. Electronically Signed: Teto De La Torre, at 15:03 EDT , Service support ,
--- NOTE | 2019-11-19 13:25 | ED.DCSUM_ITS ---
- ER Visit Summary Date of Service: 11/19/19 Chief Complaint: Dizziness History of Present Illness: The patient is a 69 F who presents with dizziness that began yesterday. Patient states it is gotten worse today. Patient states that she feels like she is moving and spinning. Patient states this is worse with sudden movements such as standing and turning her head. Patient states this is better when she sits and rests. Patient denies any changes in her vision. Patient denies any nausea or vomiting. Patient does admit to a headache. Patient denies any chest pain or shortness of breath. Physical Examination: Vital signs are stable. Patient is afebrile. Patient is in no acute distress. Pupils are equal, round, and reactive to light bilaterally. Extraocular muscles are intact. There is no nystagmus noted. Oral mucosa is pink and moist. Neck is supple. Trachea is midline. There is no JVD. Heart was regular rate and rhythm. Lungs are clear and equal bilaterally. Abdomen is soft. Bowel sounds are normal. Cranial nerves II through XII are intact. There are no focal motor or sensory deficits. Test Results: CT scan of the brain was obtained. There are chronic changes but no acute intracranial abnormality. This was interpreted by the radiologist and reviewed by myself. EKG showed normal sinus rhythm with a rate of 72. There are nonspecific ST-T wave changes. This was unchanged compared to previous EKG dated 09/18/2019. CBC shows a mild leukocytosis of 12.2. BUN was slightly elevated at 33 and creatinine was slightly elevated at 1.26. These were consistent with prior results. Urinalysis does not show any evidence of urinary tract infection. Troponin was normal. Emergency Department Course and Treatment: Patient was given a dose of Valium here. Patient had no improvement of her dizziness with this. Patient was given a repeat dose of Valium. Patient was still dizzy with any position change. Case was discussed with the hospitalist. He will admit the patient to his [facility]. Patient understands and is agreeable with the plan. All questions were answered. Disposition: Admit to hospital Impression: 1. Intractable vertigo This note was generated with [employer] software. It may contain incorrect words, spelling, and punctuation that were not noted in review of the chart prior to signing ED Disposition - Plan for ED Patient: Referrals: Annette Mckinley MD [Primary Care Provider] -
[2019-11-19 14:19] LABS: Absolute Lymphocyte Count 2.42 X10^3/uL (0.83-4.51); Absolute Neutrophil Count 8.5 X10^3/uL (2.0-7.7); Basophil# 0.03 X10^3/uL; Basophil% 0.2 % (0-1); Eosinophil# 0.02 X10^3/uL; Eosinophils% 0.2 % (0-5); Hematocrit 42.2 % (37-47); Hemoglobin 13.6 g/dL (12.0-15.0); Lymphocyte # 2.42 X10^3/ul (4.0); Lymphocyte % 19.9 % (19-41); Mean Corp Hgb Conc 32.2 g/dL (32-36); Mean Corpuscular Hgb 25.5 pg (27.0-32.0); Mean Platelet Vol. 10.7 fl (6.2-12.0); Monocyte# 1.14 X10^3/uL; Monocyte% 9.4 % (0-10); NRBC Flagged by Analyzer 0 % (0-5); Neutrophil # 8.48 X10^3/uL (2.7-7.7); Neutrophil % 69.5 % (47-70); Platelet Count 216 K/mm3 (150-450); RBC Distribution Width CV 14.6 % (11.6-14.6); Red Blood Count 5.34 M/mm3 (4.2-5.4); White Blood Count 12.2 K/mm3 (4.4-11.0)
[2019-11-19] MEDS: 0.9% Normal Saline 1,000 ML 1000 ML IV (14:24)
[2019-11-19] MEDS: diazePAM 5 MG Tablet 2.5 MG PO ×2 (14:24→15:42)
[2019-11-19 14:59] LABS: Anion Gap 7 (5-15); BUN 33 mg/dL (7-18); BUN/Creat Ratio 26.2 RATIO (10-20); Calcium,Total 9.3 mg/dL (8.5-10.1); Chloride 110 mmol/L (98-107); Creatinine, Serum 1.26 mg/dL (0.55-1.02); EST Glomerular Filtration Rate 45 mL/min (>60); Est Glom Filt Rate - Afr Amer 54 mL/min (>60); Estimated Creatinine Clearance 31.35 ml/min; Glucose 150 mg/dL (74-106); Potassium 4.3 mmol/L (3.5-5.1); Sodium Level 139 mmol/L (136-145)
[2019-11-19 15:27] LABS: Mucous, Urine 0 SEEN /hpf (<or=2+); White Blood Cells 0 SEEN /hpf (0-5)
[2019-11-19 15:36] LABS: Color, Urine Yellow (Yellow); Glucose, Dipstick 50 mg/dl (Normal); Ketone-Dipstick Negative (Negative); Leukocyte Esterase-Dipstick 25 /ul (Negative); Nitrite-Dipstick Negative (Negative); Occult Blood-Urine 150 /ul (Negative); Protein-Dipstick 500 mg/dl (Negative); Urine Bilirubin Dipstick Negative (Negative); Urine Clarity Sl. Cloudy (Clear); Urine Urobilinogen Normal (Normal)
[2019-11-19 15:51] LABS: Amorphous Sediment 1+; Bacteria 1+ /hpf (None Seen); Red Blood Cells-Urine 5-10 SEEN /hpf (0-5); Squamous Epithelial Cells - UA 5-10 SEEN /hpf (5-10)
--- NOTE | 2019-11-19 16:57 | NURSING ---
PCU OBS INTRACTABLE VERTIGO ASHELFAH
--- NOTE | 2019-11-19 17:05 | PCM.HP.STD ---
Problem List (1) Atherosclerosis of coronary artery of [place] heart without angina pectoris Status: Chronic Qualifiers: (2) History of coronary artery stent placement Status: Chronic Comment: [id number] LAD w/ a 3.0 x 38 mm Synergy Stent 06/23/18; PTCA/SIVAN of mid RCA with a 2.25 x 38 Promus Synergy 09/03/2019 (3) Chronic diastolic CHF (congestive heart failure) Status: Chronic (4) Peripheral vascular occlusive disease Status: Chronic Comment: left peroneal and proximal left posterior tibial angioplasty and left superficial femoral atherectomy and angioplasty 02/28/19 (5) Essential (primary) hypertension Status: Chronic (6) Hyperlipidemia Status: Chronic Qualifiers: History of Present Illness Date of Admission: 11/19/19 Chief Complaint: Dizziness. The patient is a 69 year old F with past medical history as mentioned above presented to the emergency room because of dizziness. Patient mentioned that her symptoms started last night with dizziness, described as spinning, intermittent, increased with head movement as well as imbalance and she has not been able to ambulate and relieving factors. She reported associated blurred vision and seeing double when looking to the left side. She denied nausea or vomiting. She denied ear pain, discharge or change in hearing. She denied numbness or tingling. She denied focal arm or leg weakness. In the emergency department, her vital signs were stable. Her routine blood work was remarkable for minimal leukocytosis, BUN of 33 and creatinine of 1.26 which are chronic. EKG revealed normal sinus rhythm without evidence of acute ischemic changes or cardiac arrhythmias. Troponin was negative. CT scan brain showed no acute findings. She is being admitted for intractable vertigo for treatment. Past Medical History Past Medical History (Chronic Problems): Chronic Problems (Last Updated 11/19/19 @ 17:[address] Samina Alston MD) Atherosclerosis of coronary artery of [place] heart without angina pectoris (Chronic) History of coronary artery stent placement (Chronic 09/03/19) [id number] LAD w/ a 3.0 x 38 mm Synergy Stent 06/23/18; PTCA/SIVAN of mid RCA with a 2.25 x 38 Promus Synergy 09/03/2019 Non-ST elevation (NSTEMI) myocardial infarction (Chronic 06/22/18) Chronic diastolic CHF (congestive heart failure) (Chronic) Peripheral vascular occlusive disease (Chronic) left peroneal and proximal left posterior tibial angioplasty and left superficial femoral atherectomy and angioplasty 02/28/19 Claudication (Chronic) Essential (primary) hypertension (Chronic) Hyperlipidemia (Chronic) Medical History: Medical History (Last Updated 11/19/19 @ 17:[address] Samina Alston MD) Atherosclerosis of coronary artery of [place] heart without angina pectoris (Chronic) I25.10 Non-ST elevation (NSTEMI) myocardial infarction (Chronic) Onset Date: 06/22/18 I21.4 Chronic diastolic CHF (congestive heart failure) (Chronic) I50.32 Peripheral vascular occlusive disease (Chronic) I73.9 left peroneal and proximal left posterior tibial angioplasty and left superficial femoral atherectomy and angioplasty 02/28/19 Claudication (Chronic) I73.9 Essential (primary) hypertension (Chronic) I10 Hyperlipidemia (Chronic) E78.5 Anxiety F41.9 Back problem M53.9 Chronic kidney disease (CKD) N18.9 Diabetes mellitus, type II E11.9 Hepatitis K75.9 Obesity E66.9 PAD (peripheral artery disease) I73.9 Diabetes type 2, controlled E11.9 Dx : 1998 Last exacerbation : DKA : never Hypoglycemic episode : never ER visit : never Abnormal ultrasound of lower extremity (Inactive) R93.6 Allergies acetaminophen [From [place]] Allergy (Verified 11/19/19 12:42) Upset Stomach aspirin Allergy (Verified 11/19/19 12:42) Bleeding hydrocodone [From [place]] Allergy (Verified 11/19/19 12:42) Upset Stomach metformin Allergy (Verified 11/19/19 12:42) Nausea Home Medications: Ambulatory Orders Medication Instructions Recorded insulin aspart U-100 100 unit/mL 10 unit SC TIDCM ml 07/26/17 (3 mL) subcutaneous pen Nitroglycerin (INPATIENT USE) 0.4 mg SUBLINGUAL Q5M PRN 06/22/18 [Nitrostat] Isosorbide Mononitrate [Isosorbide 60 mg PO DAILY 08/31/19 Mononitrate ER] Albuterol Inhaler [Ventolin Hfa] 2 puff INHALATION Q4H PRN PRN 09/18/19 Amlodipine [Norvasc] 10 mg PO DAILY 09/18/19 Clopidogrel Bisulfate [Clopidogrel] 75 mg PO DAILY 09/18/19 Lisinopril 20 mg PO BID 09/18/19 Metoprolol Succinate [Toprol Xl] 50 mg PO DAILY 09/18/19 Simvastatin 20 mg PO QHS 09/18/19 Hydrochlorothiazide [Hctz] 12.5 mg PO DAILY 11/19/19 Surgical History: Surgical History (Last Updated 11/19/19 @ 17:[address] Samina Alston MD) History of coronary artery stent placement (Chronic) Onset Date: 09/03/19 Z95.5 [id number] LAD w/ a 3.0 x 38 mm Synergy Stent 06/23/18; PTCA/SIVAN of mid RCA with a 2.25 x 38 Promus Synergy 09/03/2019 History of total abdominal hysterectomy Z98.890, Z90.710 History of angioplasty of peripheral vessel Onset Date: 02/28/19 Z98.62 left peroneal and proximal left posterior tibial angioplasty and left superficial femoral atherectomy and angioplasty 02/28/19 S/P colonoscopy (Inactive) Z98.890 Surgical History: - - Total abdominal hysterectomy, PCI x1, angioplasty left lower extremity, right rotator cuff repair, left knee arthroscopic surgery. 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 Samina Alston MD) Mother Arthritis Father Arthritis History Items: - - Patient denies any market paternal family history including heart disease, diabetes or cancer. Maternal Family History: Family History (Last Reviewed 11/19/19 @ 17:[address] Samina Alston MD) Mother Arthritis Father Arthritis History Items: Heart Disease Review of Systems Constitutional: Denies: Anorexia, Chills, Fever, Weakness Eyes: Reports: Double vision. Denies: Blurred vision, Drainage, Redness HEENT: Denies: Difficulty Hearing, Ear Pain, Eye Pain, Nasal Congestion, Sore Throat Cardiovascular: Denies: Chest Pain, Chest Pressure, Chest Tightness, Heaviness, Light Headedness, Palpitations, Syncope Respiratory: Denies: Cough, Pleuritic Pain, Shortness of Breath, Sputum production, Wheezing Gastrointestinal: Denies: Abdominal Pain, Constipation, Diarrhea, Nausea, Vomiting Genitourinary: Denies: Dysuria, Frequency, Hematuria Musculoskeletal: Denies: Arm Pain, Back Pain, Foot Pain Skin: Denies: Dryness, Rash Neurological: Reports: Balance problems, Double vision, Headaches. Denies: Change in Speech, Slurred speech, Confusion, Focal weakness, Incoordination, Numbness, Tingling Psychiatric: Denies: Anxiety, Depression Endocrine: Denies: Change in Body Habitus, Polydipsia, Polyuria VTE Information - Inpt Only VTE Present on Admission: No VTE Mechan Device Prophylaxis: None VTE Pharm Prophylaxis ordered?: Yes - Physical Exam Vitals/I&O's: Vital Signs Temp Pulse Resp BP Pulse Ox 98.2 F 72 17 135/97 H 98 11/19/19 12:38 11/19/19 16:00 11/19/19 16:00 11/19/19 16:00 11/19/19 16:00 Oxygen Delivery Method Room Air Weight: 179 lb 7.3 oz Body Mass Index (BMI) 33.6 Finger Stick Blood Glucose 92 Intake and Output for Last 24 Hours 11/17/19 11/18/19 11/19/19 23:59 23:59 23:59 Intake Total 1000 / 1000 Balance 1000 / 1000 General: Alert, Oriented x3, Cooperative, No apparent distress HEENT: Atraumatic, PERRLA, EOMI, Normocephalic Oral: Moist Mucosa, No Gingival or Mucosal Lesions/ Ulcerations Neck: Supple, No JVD, Negative Carotid Bruits, Trachea Midline, Thyroid Normal Size and Texture Lungs: Clear to auscultation, Normal air movement, No rhonchi, No wheeze, No rales, Diminished Cardiovascular: Regular rate, Regular Rhythm, Normal S1, Normal S2, PMI Normal Abdomen: Bowel Sounds Present, Soft, Non Tender, Non-Distended, No Hepato-splenomegaly Extremities: No clubbing, No cyanosis, No edema Skin: No rashes, No breakdown Lymphatic: No Cervical, Supraclavicular, or Inguinal Adenopathy Neurological: Cranial nerves II-XII grossly intact, Motor Exam 5/5 strength throughout, - - Diplopia on looking to left side. Psych/Mental Status: Normal Affect, Appropriate, Alert and oriented to time, place, person, mood and affect Laboratory Results 11/19/19 14:10: WBC 12.2 H, RBC 5.34, Hgb 13.6, Hct 42.2, MCV 79.0 L, MCH 25.5 L, MCHC 32.2, RDW Std Deviation 41.0, RDW Coeff of [place] 14.6, Plt Count 216, MPV 10.7, Immature Gran % (Auto) 0.800, Neut % (Auto) 69.5, Lymph % (Auto) 19.9, [place] % (Auto) 9.4, Eos % (Auto) 0.2, Baso % (Auto) 0.2, Absolute Neuts (auto) 8.5 H, Absolute Lymphs (auto) 2.42, Nucleated RBC % 0 11/19/19 14:10: Sodium Cancelled, Potassium Cancelled, Chloride Cancelled, Carbon Dioxide Cancelled, Anion Gap Cancelled, BUN Cancelled, Creatinine Cancelled, Estim Creat Clear Calc Cancelled, Est GFR (MDRD) Af Amer Cancelled, Est GFR (MDRD) Non-Af Cancelled, BUN/Creatinine Ratio Cancelled, Glucose Cancelled, Calcium Cancelled, Troponin I Cancelled 11/19/19 14:35: Sodium 139, Potassium 4.3, Chloride 110 H, Carbon Dioxide 22.0, Anion Gap 7, BUN 33 H, Creatinine 1.26 H, Estim Creat Clear Calc 31.35, Est GFR (MDRD) Af Amer 54 L, Est GFR (MDRD) Non-Af 45 L, BUN/Creatinine Ratio 26.2 H, Glucose 150 H, Calcium 9.3, Troponin I < 0.015 11/19/19 15:21: Urine Color Yellow, Urine Clarity Sl. Cloudy, Urine pH 6.0, Ur Specific [place] 1.010, Urine Protein 500 H, Urine Glucose (UA) 50 H, Urine Ketones Negative, Urine Occult Blood 150 H, Urine Nitrite Negative, Urine Bilirubin Negative, Urine Urobilinogen Normal, Ur Leukocyte Esterase 25 H, Urine RBC 5-10 SEEN, Urine WBC 0 SEEN, Ur Squamous Epith Cells 5-10 SEEN, Amorphous Sediment 1+, Urine Bacteria 1+, Urine Mucus 0 SEEN Clinical Impression(s) from Imaging Studies Brain CT 11/19/19 13:08 IMPRESSION: Chronic involutional changes of the brain. Electronically Signed: Teto De La Torre, at 15:03 EDT , Service support , Assessment/Plan This is a 69 years old female patient presented to the emergency room because of dizziness described as vertigo and she is being admitted for treatment. #1 intractable vertigo: Probably peripheral, no findings suggestive of stroke. Vital signs are stable, blood pressure under control. CT scan brain showed no acute findings. She received 2 doses of Valium in the ED with no improvement. Plan: Admit to PCU observation, cardiac monitoring, gentle IV fluids for hydration, IV Zofran PRN, Antivert PRN, Valium as needed, repeat CBC and BMP tomorrow morning, PT OT evaluation and treatment, vestibular therapy. #2 CAD status post stents: EKG reviewed, no acute changes. Troponin is negative. Continue Plavix, statins, lisinopril, nitrate and metoprolol. #3 type 2 diabetes mellitus: ADA diet, Accu-Cheks, insulin sliding scale, continue home doses of insulin aspart. #4 peripheral vascular disease, status post angioplasty. Stable, continue Plavix and statins. #5 hypertension: Stable, continue HCTZ, Norvasc, lisinopril and metoprolol. #6 hyperlipidemia: Continue statins. #7 stage III chronic kidney disease: Baseline creatinine has been around 1.2 to 1.7 mg/dL. Admission creatinine is 1.26, stable at baseline. #8 DVT prophylaxis: Subcu heparin. This note was generated with [employer] dictation software. It may contain incorrect words, spelling, and punctuation that were not noted in checking the note before signing. OBSV E&M: 15494 Initial observation care L3
[2019-11-19] MEDS: Meclizine HCl 25 MG Tablet PO (20:15)
[2019-11-19] MEDS: 0.9% Normal Saline 1,000 ML 75 ML IV (20:20)
[2019-11-19 21:26] LABS: Bedside Glucose 390 mg/dL (70-110)
[2019-11-19] MEDS: Heparin Injection (Vial) 5,000 UNIT/ML VIAL 5000 UNIT SC (21:33)
[2019-11-19] MEDS: Insulin Lispro 100 UNIT/ML INSULN.PEN SC (21:34)
[2019-11-19] MEDS: Acetaminophen 325 MG Tablet 650 MG PO (21:36)
[2019-11-19] MEDS: Atorvastatin Calcium 10 MG Tablet PO (21:37)
[2019-11-19] MEDS: Lisinopril 20 MG Tablet PO (21:37)
[2019-11-19] MEDS: diazePAM 2 MG Tablet PO (21:42)
[2019-11-20] VITALS (9 sets, daily range): BP systolic 117–187; BP diastolic 56–89; PULSE 63–91; RESP 14–18; TEMP 36.6–36.8; O2SAT 94–99
[2019-11-20] MEDS: Heparin Injection (Vial) 5,000 UNIT/ML VIAL 5000 UNIT SC (05:40)
[2019-11-20] MEDS: Meclizine HCl 25 MG Tablet PO ×2 (05:40→11:57)
[2019-11-20 07:04] LABS: Absolute Lymphocyte Count 2.18 X10^3/uL (0.83-4.51); Absolute Neutrophil Count 6.5 X10^3/uL (2.0-7.7); Basophil# 0.03 X10^3/uL; Basophil% 0.3 % (0-1); Eosinophil# 0.05 X10^3/uL; Eosinophils% 0.5 % (0-5); Hematocrit 42.6 % (37-47); Hemoglobin 13.3 g/dL (12.0-15.0); Lymphocyte # 2.18 X10^3/ul (4.0); Lymphocyte % 23.2 % (19-41); Mean Corp Hgb Conc 31.2 g/dL (32-36); Mean Corpuscular Hgb 25.2 pg (27.0-32.0); Mean Corpuscular Volume 80.7 fL (81-99); Mean Platelet Vol. 11.2 fl (6.2-12.0); Monocyte% 6.4 % (0-10); NRBC Flagged by Analyzer 0 % (0-5); Neutrophil # 6.45 X10^3/uL (2.7-7.7); Neutrophil % 68.9 % (47-70); Platelet Count 165 K/mm3 (150-450); RBC Distribution Width CV 14.5 % (11.6-14.6); RBC Distribution Width SD 41.8 fl (35.1-43.9); Red Blood Count 5.28 M/mm3 (4.2-5.4); White Blood Count 9.4 K/mm3 (4.4-11.0)
[2019-11-20 07:30] LABS: Anion Gap 7 (5-15); BUN 30 mg/dL (7-18); BUN/Creat Ratio 26.1 RATIO (10-20); Calcium,Total 8.4 mg/dL (8.5-10.1); Chloride 108 mmol/L (98-107); Creatinine, Serum 1.15 mg/dL (0.55-1.02); EST Glomerular Filtration Rate 50 mL/min (>60); Est Glom Filt Rate - Afr Amer 60 mL/min (>60); Glucose 280 mg/dL (74-106); Potassium 4.5 mmol/L (3.5-5.1); Sodium Level 135 mmol/L (136-145)
[2019-11-20] MEDS: Clopidogrel Bisulfate 75 MG Tablet PO (08:19)
[2019-11-20] MEDS: Metoprolol(XL)Succ 50 MG Tablet PO (08:19)
[2019-11-20] MEDS: hydroCHLOROthiazide 12.5mg 12.5 MG PO (08:19)
[2019-11-20] MEDS: Isosorbide Mononitrate 60 MG Tablet PO (08:20)
[2019-11-20] MEDS: Lisinopril 20 MG Tablet PO (08:20)
[2019-11-20] MEDS: amLODIPine 10 MG Tablet PO (08:20)
[2019-11-20] MEDS: Insulin Lispro 100 UNIT/ML INSULN.PEN SC ×2 (08:21→12:00)
[2019-11-20] MEDS: Insulin Lispro 100 UNIT/ML INSULN.PEN 10 UNIT SC ×2 (08:21→12:00)
[2019-11-20 08:30] LABS: Bedside Glucose 267 mg/dL (70-110)
[2019-11-20] MEDS: diazePAM 2 MG Tablet PO (10:18)
--- NOTE | 2019-11-20 11:21 | DCINST_ITS ---
You will use the following diet at home:: Calorie/Carbohydrate Controlled (specify 1200, 1400, etc) - 1800 parris., Cardiac Your food should be the consistency of: Regular Discharge Activity: Return to Normal Activity Weight Bearing Status: Weight bearing as tolerated Call your doctor if you observe: Fever of 101 or Higher, Shortness of breath, Dizziness, Fainting spells, Chest pain, Increased palpitations (irregular heartbeat), Uncontrolled pain Instructions: ED BPV Vertigo Allergies/Adverse Reactions: Allergies acetaminophen [From [place]] Allergy (Verified 11/19/19 12:42) Upset Stomach aspirin Allergy (Verified 11/19/19 12:42) Bleeding hydrocodone [From [place]] Allergy (Verified 11/19/19 12:42) Upset Stomach metformin Allergy (Verified 11/19/19 12:42) Nausea Medications to take at Discharge insulin aspart U-100 100 unit/mL (3 mL) subcutaneous pen 15 unit SC TIDCM ml 07/26/17 Nitroglycerin (INPATIENT USE) [Nitrostat] 0.4 mg SUBLINGUAL Q5M PRN 06/22/18 Isosorbide Mononitrate [Isosorbide Mononitrate ER] 60 mg PO DAILY 08/31/19 Amlodipine [Norvasc] 10 mg PO DAILY 09/18/19 Clopidogrel Bisulfate [Clopidogrel] 75 mg PO DAILY 09/18/19 Lisinopril 20 mg PO BID 09/18/19 Metoprolol Succinate [Toprol Xl] 50 mg PO DAILY 09/18/19 Simvastatin 20 mg PO QHS 09/18/19 Hydrochlorothiazide [Hctz] 12.5 mg PO DAILY 11/19/19 Meclizine HCl [Antivert] 25 mg PO TID PRN PRN #14 tab 11/20/19 The following prescriptions were given: Meclizine HCl [Antivert] 25 mg PO TID PRN PRN #14 tab PRN Reason: Vertigo Transmission Status: Pending to [facility] [facility] Primary Care Physician: Annette Mckinley MD [Primary Care Provider] - Please follow up with your Primary Care Physician in: 1 week. Test Results: Test results from this visit will be discussed in further detail at your follow- up appointment, if applicable.
--- NOTE | 2019-11-20 11:55 | PHA.DC.MC ---
Pharmacy Service has performed discharge medication reconciliation and counseling for this patient. 1. MECLIZINE 25MG PO TID PRN VERTIGO The patient's discharge medication list was reviewed for discrepancies and discrepancies were resolved. Home Medications insulin aspart U-100 100 unit/mL (3 mL) subcutaneous pen 15 unit SC TIDCM ml 07/26/17 Nitroglycerin (INPATIENT USE) [Nitrostat] 0.4 mg SUBLINGUAL Q5M PRN 06/22/18 Isosorbide Mononitrate [Isosorbide Mononitrate ER] 60 mg PO DAILY 08/31/19 Amlodipine [Norvasc] 10 mg PO DAILY 09/18/19 Clopidogrel Bisulfate [Clopidogrel] 75 mg PO DAILY 09/18/19 Lisinopril 20 mg PO BID 09/18/19 Metoprolol Succinate [Toprol Xl] 50 mg PO DAILY 09/18/19 Simvastatin 20 mg PO QHS 09/18/19 Hydrochlorothiazide [Hctz] 12.5 mg PO DAILY 11/19/19 Meclizine HCl [Antivert] 25 mg PO TID PRN PRN #14 tab 11/20/19 The patient was counseled on the following discharge medications and changes in medications for homegoing were reviewed. The Reason for Use, instructions for use, and potential side effects were reviewed for all new medications. The patient's questions regarding all of their medications were answered. The patient was able to verbally demonstrate an understanding of their discharge medications.
[2019-11-20 12:21] LABS: Bedside Glucose 337 mg/dL (70-110)
--- NOTE | 2019-11-20 15:15 | PCM.DC.SUM ---
Discharge Date and Diagnosis Date of Admission: 11/19/19 Date of Discharge: 11/20/19 - Primary Discharge Diagnosis Vertigo attributed to BPPV. - Secondary Discharge Diagnosis Chronic Problems (Last Updated 11/19/19 @ 17:[address] Samina Alston MD) Atherosclerosis of coronary artery of [place] heart without angina pectoris (Chronic) History of coronary artery stent placement (Chronic 09/03/19) [id number] LAD w/ a 3.0 x 38 mm Synergy Stent 06/23/18; PTCA/SIVAN of mid RCA with a 2.25 x 38 Promus Synergy 09/03/2019 Non-ST elevation (NSTEMI) myocardial infarction (Chronic 06/22/18) Chronic diastolic CHF (congestive heart failure) (Chronic) Peripheral vascular occlusive disease (Chronic) left peroneal and proximal left posterior tibial angioplasty and left superficial femoral atherectomy and angioplasty 02/28/19 Claudication (Chronic) Essential (primary) hypertension (Chronic) Hyperlipidemia (Chronic) Hospital Course and Treatment Imaging Results: Clinical Impression(s) from Imaging Studies Brain CT 11/19/19 13:08 IMPRESSION: Chronic involutional changes of the brain. Electronically Signed: Teto Wil, at 15:03 EDT , Service support , Operations: None Procedures: EKG Summary of Care Provided: Patient seen and examined on day of discharge and appeared to be stable to be discharged home. She mentioned that the vertigo is getting better especially with Antivert. Valium is not effective. She has been able to go to the bathroom. Her vital signs are stable. The patient is a 69 year old F presented to the emergency room because of dizziness that was described as spinning sensation and she was admitted as a case of vertigo due to benign peripheral paroxysmal vertigo. On admission, CT scan brain done and showed no acute findings. Her routine blood work was remarkable for mild leukocytosis which resolved and creatinine of 1.26 which is chronic and also improved. She had no symptoms suggestive of acute stroke. Her vital signs for admission were stable and her blood pressure under control. Her symptoms attributed to BPV. She was treated with Antivert and Valium as needed as well as IV antiemetics. On the day of discharge, patient reported that her symptoms is significantly improved. She was able to ambulate to the bathroom back and forth and she was taken for short walk and she did okay. Patient discharged home in a stable condition, discharged on Antivert PRN for vertigo, continued on her previous home medications without any changes, recommended follow-up with PCP in 1 week. - Physical Exam Vitals/I&O's: Vital Signs Temp Pulse Resp BP Pulse Ox 98 F 87 15 117/89 H 99 11/20/19 14:29 11/20/19 14:29 11/20/19 14:29 11/20/19 14:29 11/20/19 14:29 Oxygen Delivery Method Room Air Weight: 172 lb 8 oz Body Mass Index (BMI) 33.4 Finger Stick Blood Glucose 92 Intake and Output for Last 24 Hours 11/18/19 11/19/19 11/20/19 23:59 23:59 23:59 Intake Total 1513.75 / 1513.75 1313.75 / 1313.75 Output Total 475 / 475 Balance 1513.75 / 1513.75 838.75 / 838.75 General: Alert, Oriented x3, Cooperative, No apparent distress HEENT: Atraumatic, PERRLA, EOMI, Normocephalic Oral: Moist Mucosa, No Gingival or Mucosal Lesions/ Ulcerations Neck: Supple, No JVD, Negative Carotid Bruits, Trachea Midline, Thyroid Normal Size and Texture Lungs: Clear to auscultation, Normal air movement, No rhonchi, No wheeze, No rales, Diminished Cardiovascular: Regular rate, Regular Rhythm, Normal S1, Normal S2, PMI Normal Abdomen: Bowel Sounds Present, Soft, Non Tender, Non-Distended, No Hepato-splenomegaly Extremities: No clubbing, No cyanosis, No edema Skin: No rashes, No breakdown Lymphatic: No Cervical, Supraclavicular, or Inguinal Adenopathy Neurological: Cranial nerves II-XII grossly intact, Motor Exam 5/5 strength throughout Psych/Mental Status: Normal Affect, Appropriate Laboratory Results 11/19/19 15:21: Urine Color Yellow, Urine Clarity Sl. Cloudy, Urine pH 6.0, Ur Specific [place] 1.010, Urine Protein 500 H, Urine Glucose (UA) 50 H, Urine Ketones Negative, Urine Occult Blood 150 H, Urine Nitrite Negative, Urine Bilirubin Negative, Urine Urobilinogen Normal, Ur Leukocyte Esterase 25 H, Urine RBC 5-10 SEEN, Urine WBC 0 SEEN, Ur Squamous Epith Cells 5-10 SEEN, Amorphous Sediment 1+, Urine Bacteria 1+, Urine Mucus 0 SEEN 11/19/19 21:18: POC Glucose 390 H 11/20/19 06:13: WBC 9.4, RBC 5.28, Hgb 13.3, Hct 42.6, MCV 80.7 L, MCH 25.2 L, MCHC 31.2 L, RDW Std Deviation 41.8, RDW Coeff of [place] 14.5, Plt Count 165, MPV 11.2, Immature Gran % (Auto) 0.700, Neut % (Auto) 68.9, Lymph % (Auto) 23.2, [place] % (Auto) 6.4, Eos % (Auto) 0.5, Baso % (Auto) 0.3, Absolute Neuts (auto) 6.5, Absolute Lymphs (auto) 2.18, Nucleated RBC % 0 11/20/19 06:13: Sodium 135 L, Potassium 4.5, Chloride 108 H, Carbon Dioxide 20.0 L, Anion Gap 7, BUN 30 H, Creatinine 1.15 H, Estim Creat Clear Calc 32.70, Est GFR (MDRD) Af Amer 60, Est GFR (MDRD) Non-Af 50 L, BUN/Creatinine Ratio 26.1 H, Glucose 280 H, Calcium 8.4 L 11/20/19 08:17: POC Glucose 267 H 11/20/19 11:59: POC Glucose 337 H Discharge Activity: Return to Normal Activity Weight Bearing Status: Weight bearing as tolerated Call your doctor if you observe: Fever of 101 or Higher, Shortness of breath, Dizziness, Fainting spells, Chest pain, Increased palpitations (irregular heartbeat), Uncontrolled pain Home Medications: Medications to take at Discharge insulin aspart U-100 100 unit/mL (3 mL) subcutaneous pen 15 unit SC TIDCM ml 07/26/17 Nitroglycerin (INPATIENT USE) [Nitrostat] 0.4 mg SUBLINGUAL Q5M PRN 06/22/18 Isosorbide Mononitrate [Isosorbide Mononitrate ER] 60 mg PO DAILY 08/31/19 Amlodipine [Norvasc] 10 mg PO DAILY 09/18/19 Clopidogrel Bisulfate [Clopidogrel] 75 mg PO DAILY 09/18/19 Lisinopril 20 mg PO BID 09/18/19 Metoprolol Succinate [Toprol Xl] 50 mg PO DAILY 09/18/19 Simvastatin 20 mg PO QHS 09/18/19 Hydrochlorothiazide [Hctz] 12.5 mg PO DAILY 11/19/19 Meclizine HCl [Antivert] 25 mg PO TID PRN PRN #14 tab 11/20/19 Following Prescrptions Were Given to Patient: Meclizine HCl [Antivert] 25 mg PO TID PRN PRN #14 tab PRN Reason: Vertigo Transmission Status: Received by [facility] [facility] Primary Care Physician: Annette Mckinley MD [Primary Care Provider] - Please follow up with your Primary Care Physician in: 1 week. Patient Instructions: ED BPV Vertigo Disposition: Home Minutes spent on discharge:: 26 Patient Condition:: Stable Medical Necessity - Tobacco Use Smoking Status: Former smoker Meaningful Use Info Meaningful Use Diagnoses (Choose all that apply): None applicable OBSV E&M: 02610 Observation care discharge
== END 2019-11-20 11:22 | disposition home or self-care (01) ==
LOC: ED 14:12 → PCU 17:24
PROVIDERS: Admitting Provider Hospitalist; Emergency Provider Emergency Medicine; PCP Internal Medicine; Visit Provider Hospitalist
DX: H81.10 Benign paroxysmal vertigo, unspecified ear (principal); I25.10 Atherosclerotic heart disease of native coronary artery without angina pectoris; I25.2 Old myocardial infarction; I50.32 Chronic diastolic (congestive) heart failure; I13.0 Hypertensive heart and chronic kidney disease with heart failure and stage 1 through stage 4 chronic kidney disease, or unspecified chronic kidney disease; E78.5 Hyperlipidemia, unspecified; E11.22 Type 2 diabetes mellitus with diabetic chronic kidney disease; N18.3 Chronic kidney disease, stage 3 (moderate); E11.51 Type 2 diabetes mellitus with diabetic peripheral angiopathy without gangrene; E66.9 Obesity, unspecified; Z68.33 Body mass index [BMI] 33.0-33.9, adult; Z87.891 Personal history of nicotine dependence; Z79.4 Long term (current) use of insulin; Z79.899 Other long term (current) drug therapy; Z79.02 Long term (current) use of antithrombotics/antiplatelets
CPT/HCPCS: 36415; 70450; 80048; 81001; 82962; 84484; 85025; 93005; 96360; 96361; 96372; 97161; 97166; 99218; 99285; J7030; A4216; G0378

== ENCOUNTER 2019-11-26 06:21 | Outpatient (RCR) | payer MEDICARE, OTHER, SELFPAY ==
[2019-11-15 10:32] VITALS: BMI 36.1
[2019-11-15 10:59] VITALS: BMI 34.9
[2019-11-19 18:02] VITALS: BMI 33.4
== END 2019-12-09 23:59 ==
LOC: CR 06:21
PROVIDERS: PCP Internal Medicine; Referring Provider Internal Medicine Cardiovascular Disease; Visit Provider Internal Medicine Cardiovascular Disease
DX: Z95.5 Presence of coronary angioplasty implant and graft (principal)
CPT/HCPCS: 93798

== ENCOUNTER 2020-01-07 08:00 | Outpatient (RCR) | payer MEDICARE, OTHER, SELFPAY ==
[2019-11-15 10:59] VITALS: BMI 34.9
[2019-11-19 18:02] VITALS: BMI 33.4
== END 2020-01-08 23:59 ==
LOC: CR 08:00
PROVIDERS: PCP Internal Medicine; Referring Provider Internal Medicine Cardiovascular Disease; Visit Provider Internal Medicine Cardiovascular Disease
DX: Z95.5 Presence of coronary angioplasty implant and graft (principal)
CPT/HCPCS: 93798

== ENCOUNTER 2020-02-08 08:00 | Outpatient (RCR) | payer MEDICARE, OTHER, SELFPAY ==
[2019-11-15 10:59] VITALS: BMI 34.9
[2019-12-12 09:17] VITALS: BMI 33.8
--- NOTE | 2020-01-16 13:51 | CR.ITP_ITS ---
Diagnosis - General Information Admitting Diagnosis: PCI WITH STENT Personal Learning Style:: Audio/Visual, Written Barriers to Learning: Vision Impairment Stage of change r/t lifestyle modifications:: Action Gave educational material for:: Treating Heart Disease, Emotions & Heart Disease, Stress Management & Relaxation, Sleep Disorders & Heart Disease, How The Heart Works, What it means to have Heart Disease, How Coronary Artery Disease is Diagnosed, Heart Procedures, What Heart Medications Do, Risk Factors & Modifications, Living an Active Life, Nutrition - Education/Goals Cardiac Rehabilitation Goals: 1. Maintain the individual as the primary focus of care. 2. To improve the patient's quality of life. 3. Identification of cardiac risk factors and provide cardiac risk factor management. 4. Enhance the psychosocial status of the patient. 5. Reconditioning enough to allow the patient to resume customary activities. 6. Control symptoms of cardiac disease Scale for measuring improvement of personal goals: Enter appropriate number in Comments. 2 = Unchanged. 3 = Slightly Better. 4 = Moderate Improvement. 5 = Met my Goal - Diagnosis & Disease Process 30 day Reassessments:: Progressing 30 day Reassessments:: Progressing 30 day Reassessments:: Progressing 30 day Reassessments:: Progressing Final Reassessments:: Progressing - Safety Referral to Physical Therapy: No Referral to [facility] Case Management: No Fall Risk Assessed:: Yes Assistive Devices:: Wheelchair - FOR LONG DISTANCES ONLY Exercise - 60-day Assessment - Visit Date of Eval: 01/16/20 Session #:: 8 - Physician Prescribed Exercise Modalities: NuStep, SciFit Frequency: 3x/week for 12 weeks [36 sessions] Intensity: 60-80% of age predicted maximum heart rate reserve Current METSs:: 3 Target Heart Rate:: 97-127 Current RPE:: 13 Maximum Excercise HR:: 103 Maximum Exercise Blood Pressure: 128/68 EKG Type: NSR - Outcomes & Goals Goals:: Verbalizes understanding of THR, RPE & goal METS by session 6, Documents in home exercise log/reports 30 min aerobic 5 day/wk by DC, Demonstrates accurate pulse taking by DC, Other additional outcome/goals: see below - Intervention & Plan Exercise Program Goals: Instruct on personal THR & RPE, Instruct on MET level & personal MET goal, Show patient to take own pulse /validate performance until accurate, Instruct on home exercise, Other additional plan/int - 30-day Reassessments 30 day Reassessments:: Progressing - Physical Activity Home Exercise Physical Activity - Home Exercise: Safe Exercise, Warm-up, Self-monitoring, Cool-Down, Home Exercise > 30 min Daily, Sitting Time <3 hours/daily - Outcomes & Goals Outcomes/Goals: Demonstrates correct Warm-up/exercise Cool-Down (S3) if = 2.5 METs, Verbalizes symptoms of exercise intolerance by Session 3 (S3), Demonstrate safe equipment use (S3) & follows exercise prescrition (6), Other: See below - Intervention & Plan Plan/Intervention: Instruct warm-up & cool-down if exercising at > 2 METs, Instruct on symptoms of exercise intolerance & actions to take, Instruct & monitor on saf, Assess intial functional capacity & safety risk, Other See below - 30-day Reassessments 30 day Reassessments:: Progressing Nutrition - 60-Day Assessment - Program Goals Nutrition Program Goals: LDL <100 optimal. 100 - 129 Near optimal. 130 - 159 Borderline High. 160 - 189 High. Total Cholesterol <200 desirable. 200 - 239 Borderline High. >/= 240 High. HDL < 40 Low >/=60 High. Triglycerides <150 desirable. <199 optimal. VlDL 5 - 40. HgbA1C <7%. BMI <25 Patient has diagnosis of Hyperlipidemia (ICD E78)?: Yes - Cholesterol/Lipids Determine presence & major risk factors that modify LDL goal: Hypertension or hypertensive medication Outcomes/Goals: Pt IDs own risk factors & lifestyle modifications by Session 10, Verbalizes symptoms of angina & response by session 3., Pt independently manages, Other Additional Outcomes/Goals: Intervention/Plan: Advocate for lipid panel cholesterol medication if applicable, Instruct on personal lipid levels & lipid goals/NCEP guidelines, Instruct on cholesterol, Other additional plan/int Referral to dietitian:: Yes 30-day Reassessments:: Progressing - Diabetes (Other Core Measures) Diabetes Type: Diagnosis Type II ICD-10 E11 Insulin dependent injection/pump?: Yes Do you monitor your blood sugar at home?: Yes Referral to Diabetic Clinic:: Yes Outcomes/Goals:: Able to state symptoms of, Able to state, Able to state, Other additional Intervention/Plan:: Instruct on, Refer to, Instruct on, Other 30-day Reassessments:: Progressing - Weight Mgt (Other Care) Height: 5 ft 1 in Weight:: 83.915 kg BMI: 34.9 Diagnosis Overweight/Obesity BMI> 30% ICD-10 E66: Yes Outcomes/Goals: Pt sets, maintains & shows weight loss goal & trend during rehab, Other additional outcomes/goals Intervention/Plan: Instruct on ideal BMI & set weight loss goal w/patient, Assist pt to ID & incorporate diet changes for weight loss by S9, Refer to Structured Weight Loss program as appropriate, Encourage goal of using 250- 300dcal per session for weight loss, Other additional plan/interventions 30 day Reassessments:: Progressing - Healthy Eating Habits Will attend diet classes:: Yes Outcomes/Goals:: Consume diet rich in vegs,fruits,whole grain/high fiber,fish,lean meat, Limit sat/trans fats,cholesterol & added salts & sugars, Other additional outcome/goals: Intervention/Plan:: Assess current eating habits, Other Additional plan/interventions 30-day Reassessments:: Progressing Medical- 60-Day Assessment - Visit Date of Eval: 01/16/20 Session #:: 8 - Medication Compliance Preventative Medication(s):: Aspirin, Clopidogrel/P2Y12 inhibit, Statin/lipid H/O mental health issues: depression, anxiety, or addiction?: No Doesn?t believe in the benefits of treatment?: No Believes medications are unnecessary or harmful?: No Has a concern about medication side effects?: No Expresses concern over the cost of medications?: No Outcomes/Goals: Verbalizes medications,desired effect & common side effects @ DC, Pt self-reports following medication regimen, Keeps card in wallet w/medications listed by DC, Other additional outcome/goals: Interventions/plans: Instruct on medication effects & side effects, Review medication list w/patient every two weeks, Instruct importance of taking meds as ordered & assist problem solving, Other additional 30-day Reassessments:: Progressing - Tobacco Use Tobacco Use: Non-smoker - Hypertension Hypertension Diagnosis:: Hypertension ICD-10 I10 [place] [employer] Hypertension Guidelines: [place] [employer] Hypertension Guidelines. Normal BP Less than 120/80. Elevated BP 120/80. Hypertension Stage 1: BP 130-139/80-89. Hypertesnion Stage 2: BP 140 or higher/90 or higher. Hypertension Crisis: BP higher than 180/120 Outcomes/Goals: Able to verbalize/achieve optimal blood pressure <130/80, Incorporates diet changes & exercise for blood pressure control by DC, Other a dditional outcomes/goals Interventions/plan: Instruct on optimal blood pressure, hypertension & medications, Instruct on effects of sodium, alcohol, stress, exercise &hyperten vivian, Other additional plan/interventions 30 day Reassessments:: Progressing - Tobacco Cessation Referral Smoking Cessation Referral:: No Individual Education/Counseling:: No Education Schedule Given:: Yes Psychosocial - 60-Day Assess - VIsit Date of Eval: 01/16/20 Session #:: 8 History of previous Mental disease:: No - Target Goals Target Goals: Assess presence or absence of depression. Using a valid screening tool, maximizes coping skills. Positive support system - Psychosocial Test Tool Used:: [employer] QOL Cardiac, PHQ-9 Questionnaire phq-9 Severity: Severity. 1-4 Minimal Depression. 5-9 Mild Depression. 10-14 Moderate Depression. 15-19 Moderately Sever Depression. 20-27 Severe Depression. Rule: - Outcomes/Goals: See list Psychosocial Outcomes/Goals:: ID's personal stressors & 2 strategies to manage s tress by discharge, Other Additional outcome/goals: - Intervention/Plan: See List Interventions/Plan:: Assess stressors,coping strategies & signs of derpression on admission, Instruct/assist pt to develop coping & personal stress Mgt strategies, Refer to Behavioral Health if appropriate, Refer to Physician if appropriate, Instruct patient to recognize signs & symptoms of depression, Instruct patient to recog, Other additional plan/intervention - 30-day Reassessments: 30 day Reassessments:: Progressing Patient Health Questionnaire 60-Day Re-eval Assessment 1. Little interest or pleasure in doing things: More than half the days 2. Feeling down, depressed, or hopeless: Not at all 3. Trouble falling or staying asleep, or sleeping too much: Several days 4. Feeling tired or having little energy: More than half the days 5. Poor appetite or overeating: Not at all 6. Feeling bad about yourself -- or that you are a failure or have let yourself or your family down: Not at all 7. Trouble concentrating on things, such as reading the newspaper or watching television: Not at all 8. Moving or speaking so slowly that other people could have noticed. Or the opposite - being so fidgety or restless that you have been moving around a lot more than usual: Not at all 9. Thoughts that you would be better off , or of hurting yourself in some way: Not at all How difficult have these problems made it for you to do your work, take care of things at home, or get along with other people?: Not difficult at all Total Score: 5 Self-Efficacy 60-Day Re-eval Assessment We would like to know how confident you are in doing certain activities. Please select your confidence level for:: Select your confidence level for the following using the scale 1-10 where 1 is not at all confident and 10 is totally confident. Your score is the average of all 6 responses. Fatigue: How confident are you that you can keep the fatigue caused by your di sease from interfering with the things you want to do? Select Number: 10 Physical Discomfort or Pain: How confident are you that you can keep the phys ical discomfort or pain of your disease from interfering with the things you want to do? Select Number: 10 Emotional Distress: How confident are you that you can keep the emotional distress caused by your disease from interfering with the things you want to do? Select Number: 10 Other Symptoms or Health Problems: How confident are you that you can keep other symptoms or health problems from interfering with the things you want to do? Select Number: 8 Different Tasks and Activities: How confident are you that you can do the different tasks and activities needed to manage your health condition so as to reduce your need to see a doctor? Select Number: 10 Medication: How confident are you that you can do things other than just taking medication to reduce how much your illness affects your everyday life? Select Number: 10 Total Score:: 9
[2020-01-16 14:01] VITALS: BMI 34.9
== END 2020-02-08 23:59 ==
LOC: CR 08:00
PROVIDERS: PCP Internal Medicine; Referring Provider Internal Medicine Cardiovascular Disease; Visit Provider Internal Medicine Cardiovascular Disease
DX: Z95.5 Presence of coronary angioplasty implant and graft (principal)
CPT/HCPCS: 93798

== ENCOUNTER 2020-03-10 08:00 | Outpatient (RCR) | payer MEDICARE, OTHER, SELFPAY ==
[2019-12-12 09:17] VITALS: BMI 33.8
[2020-01-16 14:01] VITALS: BMI 34.9
--- NOTE | 2020-02-14 09:29 | CR.ITP_ITS ---
Exercise - 60-day Assessment - Visit Date of Eval: 02/14/20 Session #:: 19 - Physician Prescribed Exercise Modalities: Treadmill, NuStep, SciFit Frequency: 3x/week for 12 weeks [36 sessions] Intensity: 60-80% of age predicted maximum heart rate reserve Current METSs:: 4.0 Target Heart Rate:: 97-127 Current RPE:: 13 Maximum Excercise HR:: 94 Resting Blood Pressure: 164/84 - had not taken morning medications Maximum Exercise Blood Pressure: 164/84 EKG Type: NSR T-wave inversion/prolonged PT interval. - Outcomes & Goals Goals:: Verbalizes understanding of THR, RPE & goal METS by session 6, Documents in home exercise log/reports 30 min aerobic 5 day/wk by DC, Demonstrates accurate pulse taking by DC - Intervention & Plan Exercise Program Goals: Instruct on personal THR & RPE, Instruct on MET level & personal MET goal, Show patient to take own pulse /validate performance until accurate, Instruct on home exercise - 30-day Reassessments 30 day Reassessments:: Progressing - Physical Activity Home Exercise Physical Activity - Home Exercise: Safe Exercise, Warm-up, Self-monitoring, Cool-Down, Home Exercise > 30 min Daily, Sitting Time <3 hours/daily - Outcomes & Goals Outcomes/Goals: Demonstrates correct Warm-up/exercise Cool-Down (S3) if = 2.5 METs, Verbalizes symptoms of exercise intolerance by Session 3 (S3), Demonstrate safe equipment use (S3) & follows exercise prescrition (6) - Intervention & Plan Plan/Intervention: Instruct warm-up & cool-down if exercising at > 2 METs, Instruct on symptoms of exercise intolerance & actions to take, Instruct & monitor on saf, Assess intial functional capacity & safety risk - 30-day Reassessments 30 day Reassessments:: Progressing Nutrition - 60-Day Assessment - Program Goals Nutrition Program Goals: LDL <100 optimal. 100 - 129 Near optimal. 130 - 159 Borderline High. 160 - 189 High. Total Cholesterol <200 desirable. 200 - 239 Borderline High. >/= 240 High. HDL < 40 Low >/=60 High. Triglycerides <150 desirable. <199 optimal. VlDL 5 - 40. HgbA1C <7%. BMI <25 Patient has diagnosis of Hyperlipidemia (ICD E78)?: Yes - Visit Date of Assessment:: 02/14/20 Session #:: 19 - Cholesterol/Lipids Determine presence & major risk factors that modify LDL goal: Hypertension or hypertensive medication, Low HDL cholesterol <40 mg/dL*, Family history of premature CHD in Male < 55 years: female <65 yearsFa, Age men > 45 years; women >/= 55 years Outcomes/Goals: Pt IDs own risk factors & lifestyle modifications by Session 10, Verbalizes symptoms of angina & response by session 3., Pt independently manages Intervention/Plan: Instruct on personal lipid levels & lipid goals/NCEP guidelines, Instruct on cholesterol Referral to dietitian:: No - Patient declined services 30-day Reassessments:: Progressing - Diabetes (Other Core Measures) Diabetes Type: Diagnosis Type II ICD-10 E11 Insulin dependent injection/pump?: Yes Non-Insulin Dependent?: Yes - metformin Do you monitor your blood sugar at home?: Yes Referral to Diabetic Clinic:: No - patient declined services Outcomes/Goals:: Able to state symptoms of, Able to state, Able to state Intervention/Plan:: Instruct on, Instruct on 30-day Reassessments:: Progressing - Weight Mgt (Other Care) Not Applicable: Yes Height: 5 ft 1 in Weight:: 184 lb BMI: 34.7 Diagnosis Overweight/Obesity BMI> 30% ICD-10 E66: Yes Diagnosis High BMI/Morbid Obesity BMI> 35% ICD-10 Z68: No Outcomes/Goals: Pt sets, maintains & shows weight loss goal & trend during rehab Intervention/Plan: Instruct on ideal BMI & set weight loss goal w/patient, Assist pt to ID & incorporate diet changes for weight loss by S9, Encourage goal of using 250-300dcal per session for weight loss 30 day Reassessments:: Progressing - Healthy Eating Habits Will attend diet classes:: Yes Outcomes/Goals:: Consume diet rich in vegs,fruits,whole grain/high fiber,fish,lean meat, Limit sat/trans fats,cholesterol & added salts & sugars Intervention/Plan:: Assess current eating habits 30-day Reassessments:: Progressing - Education Gave educational materials for:: Signs & symptoms of hypoglycemia, Signs & symptoms of hyperglycemia, Relate diabetes to coronary artery disease, Healthy eating Medical- 60-Day Assessment - Visit Date of Eval: 02/14/20 Session #:: 19 - Medication Compliance Preventative Medication(s):: Aspirin, Clopidogrel/P2Y12 inhibit, Statin/lipid, Beta ramnó H/O mental health issues: depression, anxiety, or addiction?: No Doesn?t believe in the benefits of treatment?: No Believes medications are unnecessary or harmful?: No Has a concern about medication side effects?: No Outcomes/Goals: Verbalizes medications,desired effect & common side effects @ DC, Pt self-reports following medication regimen, Keeps card in wallet w/medications listed by DC Interventions/plans: Instruct on medication effects & side effects, Review medication list w/patient every two weeks, Instruct importance of taking meds as ordered & assist problem solving 30-day Reassessments:: Progressing - Tobacco Use Tobacco Use: Non-smoker - Hypertension Hypertension Diagnosis:: Hypertension ICD-10 I10 Resting Blood Pressure:: 164/84 - Stage II; does not take medications regularly as prescribed. [place] [employer] Hypertension Guidelines: [place] [employer] Hypertension Guidelines. Normal BP Less than 120/80. Elevated BP 120/80. Hypertension Stage 1: BP 130-139/80-89. Hypertesnion Stage 2: BP 140 or higher/90 or higher. Hypertension Crisis: BP higher than 180/120 Peak Exercise Blood Pressure:: 164/84 Outcomes/Goals: Able to verbalize/achieve optimal blood pressure <130/80, Incorporates diet changes & exercise for blood pressure control by DC Interventions/plan: Instruct on optimal blood pressure, hypertension & medications 30 day Reassessments:: Progressing - Tobacco Cessation Referral Smoking Cessation Referral:: No Education Schedule Given:: Yes Psychosocial - 60-Day Assess - VIsit Date of Eval: 02/14/20 Session #:: 29 Not Applicable: Yes History of previous Mental disease:: No - Target Goals Target Goals: Assess presence or absence of depression. Using a valid screening tool, maximizes coping skills. Positive support system - Psychosocial Test Tool Used:: [employer] QOL Cardiac, PHQ-9 Questionnaire phq-9 Severity: Severity. 1-4 Minimal Depression. 5-9 Mild Depression. 10-14 Moderate Depression. 15-19 Moderately Sever Depression. 20-27 Severe Depression. Rule: - Referral to Behavioral Health PS - Interventions: Yes Attend Stress Management Classes, No Referral to Behavioral Health if PHQ-9 score >9:, No Referral to [facility], No Referral to Physician if PHQ-9 if score is 5-9: - Outcomes/Goals: See list Psychosocial Outcomes/Goals:: ID's personal stressors & 2 strategies to manage stress by discharge - Intervention/Plan: See List Interventions/Plan:: Assess stressors,coping strategies & signs of derpression on admission, Instruct/assist pt to develop coping & personal stress Mgt strategies, Instruct patient to recognize signs & symptoms of depression, Instruct patient to recog - 30-day Reassessments: 30 day Reassessments:: Progressing Patient Health Questionnaire 60-Day Re-eval Assessment 1. Little interest or pleasure in doing things: More than half the days 2. Feeling down, depressed, or hopeless: Not at all 3. Trouble falling or staying asleep, or sleeping too much: Several days 4. Feeling tired or having little energy: More than half the days 5. Poor appetite or overeating: Not at all 6. Feeling bad about yourself -- or that you are a failure or have let yourself or your family down: Not at all 7. Trouble concentrating on things, such as reading the newspaper or watching television: Not at all 8. Moving or speaking so slowly that other people could have noticed. Or the opposite - being so fidgety or restless that you have been moving around a lot more than usual: Not at all 9. Thoughts that you would be better off , or of hurting yourself in some way: Not at all How difficult have these problems made it for you to do your work, take care of things at home, or get along with other people?: Somewhat difficult Total Score: 5 Self-Efficacy 60-Day Re-eval Assessment We would like to know how confident you are in doing certain activities. Please select your confidence level for:: Select your confidence level for the following using the scale 1-10 where 1 is not at all confident and 10 is totally confident. Your score is the average of all 6 responses. Fatigue: How confident are you that you can keep the fatigue caused by your disease from interfering with the things you want to do? Select Number: 10 Physical Discomfort or Pain: How confident are you that you can keep the physical discomfort or pain of your disease from interfering with the things you want to do? Emotional Distress: How confident are you that you can keep the emotional distress caused by your disease from interfering with the things you want to do? Select Number: 10 Other Symptoms or Health Problems: How confident are you that you can keep other symptoms or health problems from interfering with the things you want to do? Select Number: 10 Different Tasks and Activities: How confident are you that you can do the different tasks and activities needed to manage your health condition so as to reduce your need to see a doctor? Select Number: 8 Medication: How confident are you that you can do things other than just taking medication to reduce how much your illness affects your everyday life? Select Number: 10
[2020-02-14 09:44] VITALS: BP 164/84; BMI 34.7
== END 2020-03-10 23:59 ==
LOC: CR 08:00
PROVIDERS: PCP Internal Medicine; Referring Provider Internal Medicine Cardiovascular Disease; Visit Provider Internal Medicine Cardiovascular Disease
DX: Z95.5 Presence of coronary angioplasty implant and graft (principal)
CPT/HCPCS: 93798

== ENCOUNTER 2020-03-21 08:00 | Outpatient (RCR) | payer MEDICARE, OTHER, SELFPAY ==
[2019-12-12 09:17] VITALS: BMI 33.8
[2020-02-14 09:44] VITALS: BMI 34.7
[2020-03-11 00:33] VITALS: BP 164/84
== END 2020-04-09 23:59 ==
LOC: CR 08:00
PROVIDERS: PCP Internal Medicine; Referring Provider Internal Medicine Cardiovascular Disease; Visit Provider Internal Medicine Cardiovascular Disease
DX: Z95.5 Presence of coronary angioplasty implant and graft (principal)
CPT/HCPCS: 93798

== ENCOUNTER → 2020-03-25 | Outpatient (CLI) | payer MEDICARE, OTHER, SELFPAY ==
[2019-12-12 09:17] VITALS: BMI 33.8
[2020-02-14 09:44] VITALS: BMI 34.7
== END | disposition home or self-care (01) ==
PROVIDERS: Visit Provider Dermatology
DX: L02.215 Cutaneous abscess of perineum (principal)
CPT/HCPCS: 87070; 87077; 87186; 87205

== ENCOUNTER → 2020-04-01 | Outpatient (CLI) | payer MEDICARE, OTHER, SELFPAY ==
[2020-02-14 09:44] VITALS: BMI 34.7
[2020-04-01 09:46] VITALS: BMI 34.9
[2020-04-01 11:53] LABS: ALB/GLOB Ratio 0.8 RATIO (0.9-2.4); AST(SGOT) 32 U/L (15-37); Alanine Aminotransfer ALT/SGPT 33 U/L (13-56); Albumin, Serum 3.4 g/dL (3.2-5.0); Alkaline Phosphatase 69 U/L (45-117); Anion Gap 5 (5-15); BUN 31 mg/dL (7-18); BUN/Creat Ratio 22.3 RATIO (10-20); Calcium,Total 9.2 mg/dL (8.5-10.1); Chloride 107 mmol/L (98-107); Cholesterol 210 mg/dL (200); Creatinine, Serum 1.39 mg/dL (0.55-1.02); EST Glomerular Filtration Rate 40 mL/min (>60); Est Glom Filt Rate - Afr Amer 48 mL/min (>60); Globulin 4.2 g/dL (2.2-4.2); Glucose 221 mg/dL (74-106); High Density Lipoprotein 67 mg/dL; Magnesium 2.1 mg/dL (1.6-2.6); Potassium 4.2 mmol/L (3.5-5.1); Protein, Total 7.6 g/dL (6.4-8.2); Sodium Level 140 mmol/L (136-145); Triglycerides 145 mg/dL; Very Low Density Lipoprotein 29 mg/dL (5-40)
== END | disposition home or self-care (01) ==
PROVIDERS: PCP Internal Medicine; Referring Provider Physician Assistant Medical; Visit Provider Physician Assistant Medical
DX: I10 Essential (primary) hypertension (principal); I25.10 Atherosclerotic heart disease of native coronary artery without angina pectoris; M62.838 Other muscle spasm
CPT/HCPCS: 36415; 80053; 80061; 83735

== ENCOUNTER → 2020-04-15 | Outpatient (CLI) | payer MEDICARE, OTHER, SELFPAY ==
[2020-02-14 09:44] VITALS: BMI 34.7
[2020-04-01 09:46] VITALS: BMI 34.9
== END | disposition home or self-care (01) ==
LOC: CVS 09:27
PROVIDERS: PCP Internal Medicine; Referring Provider Surgery; Visit Provider Surgery
DX: I73.9 Peripheral vascular disease, unspecified (principal)
CPT/HCPCS: 93924

== ENCOUNTER → 2020-07-02 09:07 | Outpatient (CLI) | payer MEDICARE, OTHER, SELFPAY ==
[2020-02-14 09:44] VITALS: BMI 34.7
[2020-04-21 11:16] VITALS: BMI 34.9
[2020-07-02 10:42] LABS: Albumin, Serum 3.1 g/dL (3.2-5.0); BUN 26 mg/dL (7-18); BUN/Creat Ratio 21.5 RATIO (10-20); Calcium,Total 8.6 mg/dL (8.5-10.1); Chloride 106 mmol/L (98-107); Creatinine, Serum 1.21 mg/dL (0.55-1.02); EST Glomerular Filtration Rate 47 mL/min (>60); Est Glom Filt Rate - Afr Amer 56 mL/min (>60); Glucose 187 mg/dL (74-106); Phosphorus 3.2 mg/dL (2.5-4.9); Potassium 4.4 mmol/L (3.5-5.1); Sodium Level 139 mmol/L (136-145)
== END ==
PROVIDERS: PCP Internal Medicine; Referring Provider Internal Medicine Nephrology; Visit Provider Internal Medicine Nephrology
DX: N17.9 Acute kidney failure, unspecified (principal)
CPT/HCPCS: 36415; 80069

== ENCOUNTER → 2020-08-13 11:21 | Outpatient (CLI) | payer MEDICARE, OTHER, SELFPAY ==
[2020-02-14 09:44] VITALS: BMI 34.7
[2020-04-21 11:16] VITALS: BMI 34.9
[2020-08-13 12:43] LABS: Amphetamine Urine VISTA NEGATIVE (<1000 ng/mL); Barbiturate Urine VISTA NEGATIVE (< 200 ng/mL); Benzodiazepine Urine VISTA POSITIVE (< 200 ng/mL); Cocaine Urine VISTA NEGATIVE (< 300 ng/mL); Ecstacy Urine VISTA NEGATIVE (< 500 ng/mL); Methadone Urine VISTA NEGATIVE (< 300 ng/mL); PCP Urine VISTA NEGATIVE (< 25 ng/mL); THC Urine VISTA NEGATIVE (< 50 ng/mL); Vista UDS pH Range 6
== END ==
PROVIDERS: PCP Internal Medicine; Referring Provider Anesthesiology Pain Medicine; Visit Provider Anesthesiology Pain Medicine
DX: F11.20 Opioid dependence, uncomplicated (principal)
CPT/HCPCS: 80307

== ENCOUNTER → 2020-12-25 10:20 | Outpatient (CLI) | payer MEDICARE, OTHER, SELFPAY ==
[2020-02-14 09:44] VITALS: BMI 34.7
[2020-12-25 09:15] VITALS: BMI 35.5
[2020-12-25 12:21] LABS: AST(SGOT) 33 U/L (15-37); Alanine Aminotransfer ALT/SGPT 26 U/L (13-56); Albumin, Serum 3.1 g/dL (3.2-5.0); Alkaline Phosphatase 74 U/L (45-117); Bilirubin, Direct 0.09 mg/dL (0.00-0.30); Cholesterol 170 mg/dL (200); Globulin 4.1 g/dL (2.2-4.2); High Density Lipoprotein 49 mg/dL; Protein, Total 7.2 g/dL (6.4-8.2); Triglycerides 137 mg/dL; Very Low Density Lipoprotein 27 mg/dL (5-40)
== END ==
PROVIDERS: PCP Internal Medicine; Referring Provider Internal Medicine Cardiovascular Disease; Visit Provider Internal Medicine Cardiovascular Disease
DX: E78.00 Pure hypercholesterolemia, unspecified (principal)
CPT/HCPCS: 36415; 80061; 80076

== ENCOUNTER → 2021-03-31 | Outpatient (CLI) | payer MEDICARE, OTHER, SELFPAY ==
[2020-02-14 09:44] VITALS: BMI 34.7
--- NOTE | 2021-03-30 09:00 | FLU_PTH ---
PATIENT: NIKUNJ LORD LOC: [facility] U#:[id number] AGE/SX: 70/F ROOM: RE03/31/[address]: Dr. Thania Jorge MD : 1950 BED: DIS: 03/31/2021 SPEC #: [id number] RECD: 03/31/21 10:07 STATUS: JOLIE JEANNETTE #: [id number] AMALIA: 03/30/21 09:[address]: Thania Jorge DEPT: CYTOLOGY RECD BY: Dona Zaldivar ENTERED: 03/31/21 13:06 SP TYPE: Fluid OTHR DR: Dr. Annette Mckinley MD Tissues: A - Thyroid gland, NOS B - Thyroid gland, NOS Procedures: Special Stain Group II Surgery Specimen Level IV Cytospin Fluid Cytology Other HEADER OPERATION: Ultrasound-guided fine needle aspiration of left thyroid PRE-OP DIAGNOSIS: Thyroid nodule TISSUE SUBMITTED: A ? FNA left thyroid nodule fluid, B - FNA left thyroid nodule x6 slides DIAGNOSIS CYTOLOGY A. Left thyroid nodule fluid, ultrasound-guided FNA (cytospin and cell block): Consistent with benign follicular/colloid nodule. Adequate for evaluation. B. Left thyroid nodule, ultrasound-guided FNA (smears): Consistent with benign follicular/colloid nodule. Adequate for evaluation. SJ:abbey 04/01/2021 COMMENT Correlation with clinical, radiologic findings and appropriate follow up are necessary. CYTOLOGY STUDY Slides are reviewed. CYTOLOGY GROSS A - Received is 15 ml of brown cloudy fluid labeled with the patient's name and and designated per the requisition as left thyroid. Submitted for cytology preparation including cell block. B - Received are six smears labeled with the patient's name and designated per the requisition as left thyroid. Submitted for staining. / [facility] 03/31/2021 TC:5 CPT: 65695, 69776, 13674
== END | disposition home or self-care (01) ==
LOC: LABSPEC 10:24
PROVIDERS: PCP Internal Medicine; Referring Provider Surgery; Visit Provider Surgery
DX: E04.1 Nontoxic single thyroid nodule (principal)
CPT/HCPCS: 88108; 88161; 88305; 88313

== ENCOUNTER → 2021-04-10 10:37 | Outpatient (CLI) | payer MEDICARE, OTHER, SELFPAY ==
[2020-02-14 09:44] VITALS: BMI 34.7
[2021-04-10 12:59] LABS: Amphetamine Urine VISTA NEGATIVE (<1000 ng/mL); Barbiturate Urine VISTA NEGATIVE (< 200 ng/mL); Benzodiazepine Urine VISTA POSITIVE (< 200 ng/mL); Cocaine Urine VISTA NEGATIVE (< 300 ng/mL); Ecstacy Urine VISTA NEGATIVE (< 500 ng/mL); Methadone Urine VISTA NEGATIVE (< 300 ng/mL); PCP Urine VISTA NEGATIVE (< 25 ng/mL); THC Urine VISTA NEGATIVE (< 50 ng/mL); Vista UDS pH Range 5
== END ==
LOC: LAB 04-09 10:17 → LAB.FUTURE 10:37 → LAB 10:42
PROVIDERS: PCP Internal Medicine; Referring Provider Anesthesiology Pain Medicine; Visit Provider Anesthesiology Pain Medicine
DX: F11.20 Opioid dependence, uncomplicated (principal)
CPT/HCPCS: 80307

== ENCOUNTER 2021-07-18 10:29 | Inpatient (IN) | payer MEDICARE, OTHER, SELFPAY ==
[2020-02-14 09:44] VITALS: BMI 34.7
[2021-07-18] VITALS (8 sets, daily range): BP systolic 154–172; BP diastolic 68–94; PULSE 81–102; RESP 14–18; TEMP 36.5–37.9; O2SAT 54–100; BMI 34.5; BMI 33.3
--- NOTE | 2021-07-18 10:43 | EKG12_ITS ---
Test Reason : Blood Pressure : / mmHG Vent. Rate : 091 BPM Atrial Rate : 091 BPM P-R Int : 150 ms QRS Dur : 072 ms QT Int : 384 ms P-R-T Axes : 043 -31 073 degrees QTc Int : 472 ms Normal sinus rhythm Left axis deviation Poor R wave progression Abnormal ECG Confirmed by JR GUADALUPE, SANTOS ([id number]), news copy editor MANDO FINE ([id number]) on 07/22/2021 11:37:06 AM Referred By: NIEVES/LUCIA Confirmed By:SANTOS NORRIS MD
--- NOTE | 2021-07-18 10:45 | EX.ED.DYSGE1 ---
HPI History of Present Illness Chief Complaint: Weakness Informant: patient Onset/Context/Timing Onset: Days Context: Gradual Onset Timing: Continuous Current Severity: Moderate Maximum Severity: Moderate Narrative Narrative: 70-year-old female with a complicated past medical history including diabetes, NV with 2 cardiac stents on Plavix, hypertension, peripheral vascular disease and chronic kidney disease. Tested positive for Covid about 3 days ago and started having symptoms about 5 days ago. She presents to the emergency department today with generalized weakness and shortness of breath. Her pulse ox on room air is 54%. She is normally not on any oxygen at home. She is also been having nausea vomiting and diarrhea. She tested +3 days ago at the [facility] urgent care. Prior similar symptoms: No Recent Illness/Hospitalization: No PFSH PFS Medical History Anxiety Atherosclerosis of coronary artery of [place] heart without angina pectoris Chronic diastolic CHF (congestive heart failure) Chronic kidney disease (CKD) Claudication Diabetes mellitus, type II Essential (primary) hypertension Hepatitis Hyperlipidemia Non-ST elevation (NSTEMI) myocardial infarction (06/22/18) Obesity Peripheral vascular occlusive disease Secondary pulmonary arterial hypertension Home Medications insulin aspart U-100 100 unit/mL (3 mL) subcutaneous pen 15 unit SC TIDCM ml 07/26/17 [History Last Taken 11/18/19] meclizine 25 mg PO TID PRN PRN #14 tab 11/20/19 [Rx Last Taken Unknown] amlodipine 10 mg tablet See Rx Instructions .ROUTE .COMPLEX #90 tablet 12/25/20 [Rx Last Taken Unknown] clopidogrel 75 mg tablet 75 mg PO DAILY #90 tab 12/25/20 [Rx Last Taken Unknown] isosorbide mononitrate 60 mg tablet,extended release 24 hr 60 mg PO DAILY #90 tab 12/25/20 [Rx Last Taken Unknown] lisinopril 20 mg tablet 20 mg PO BID #180 tab 12/25/20 [Rx Last Taken Unknown] metoprolol succinate 50 mg tablet,extended release 24 hr See Rx Instructions .ROUTE .COMPLEX #90 tablet 12/25/20 [Rx Last Taken Unknown] simvastatin 20 mg tablet See Rx Instructions .ROUTE .COMPLEX #90 tablet 12/25/20 [Rx Last Taken Unknown] nitroglycerin 0.4 mg sublingual tablet 0.4 mg SUBLINGUAL Q5M PRN #25 tab 06/26/21 [Rx Last Taken Unknown] Allergy/AdvReac Type Severity Reaction Status Date / Time acetaminophen [From [place]] Allergy Upset Verified 07/18/21 10:31 Stomach aspirin Allergy Bleeding Verified 07/18/21 10:31 hydrocodone [From [place]] Allergy Upset Verified 07/18/21 10:31 Stomach metformin Allergy Nausea Verified 07/18/21 10:31 Family History Mother Arthritis Father Arthritis Surgical History History of angioplasty of peripheral vessel (02/28/19) History of coronary artery stent placement (09/03/19) History of total abdominal hysterectomy S/P colonoscopy Social History Smoking Status: Former smoker second hand exposure: No alcohol intake: never substance use type: does not use ROS ROS ED ROS Narrative Fever and chills. Cough. Shortness of breath. Nausea, vomiting and diarrhea. Review of Systems ROS Unobtainable: Denies due to encephalopathy Constitutional Constitutional ED: Reports chills and fever(s) Eyes Eyes: Denies change in vision ENT ENT ED: Denies ear pain or sore throat Cardiovascular Cardiovascular: Denies chest pain or palpitations Respiratory/Chest Respiratory/Chest: Reports cough and dyspnea Gastrointestinal Gastrointestinal: Reports diarrhea, nausea and vomiting; Denies abdominal pain or constipation Genitourinary Genitourinary ED: Denies dysuria or hematuria Musculoskeletal Musculoskeletal: Reports myalgias Integumentary Denies rash Neurologic Neurologic: Denies headache(s) Psychiatric Psychiatric: Denies depression Endocrine Endocrinology: Denies polyuria Allergic/Immunologic Allergic/Immunologic ED: Denies urticaria EXAM Physical Exam Narrative Exam Narrative: 70-year-old female vital signs temperature 100.2 pulse ox 54% on room air obviously hypoxic. H EENT exam moist remembers. Neck nontender. No JVD. Lungs clear to auscultation bilaterally. Heart regular rhythm rate about 100 no murmur. Chest were nontender. Abdomen soft nontender. Normal bowel sounds no peritoneal signs. Moving all 4 extremities. Calves are nontender without edema or cords. Neurologically she is awake and alert. Const Vital Signs: 07/18/21 10:32 07/18/21 10:39 07/18/21 10:43 Temperature 100.2 F H 100.2 F H Temperature Source Oral Oral Pulse Rate 102 H 97 Respiratory Rate 18 14 Respiratory Effort Short of Breath Respiratory Pattern Normal Blood Pressure 154/85 H 154/85 H Blood Pressure Mean 108 108 Pulse Ox 54 100 Oxygen Delivery Method Room Air Nasal Cannula Oxygen Flow Rate (L/min) 4 07/18/21 11:45 Temperature Temperature Source Pulse Rate Respiratory Rate Respiratory Effort Respiratory Pattern Blood Pressure Blood Pressure Mean Pulse Ox 100 Oxygen Delivery Method Nasal Cannula Oxygen Flow Rate (L/min) 3.5 Positive well nourished, well developed and obese; Negative for cachectic, contractures or unkempt General Appearance ED: well developed; Negative for unkempt, cachectic, contractures, cyanotic, diaphoretic, NAD or pallor Nutritional Appearance: obese; Negative for cachectic HEENT Reports moist mucous membranes Negative for trauma or tenderness Eyes PERRL and EOMs intact bilaterally General Eye ED: Negative for pale conjunctiva or scleral icterus Neck no lymphadenopathy, supple and no JVD General: Negative for tenderness Chest Wall inspection of chest normal and palpation of chest normal Resp normal respiratory effort and clear to auscultation bilaterally Effort and Inspection: Negative for pain with movement Auscultation: Negative for rales, rhonchi or wheezes Cardio regular rate, regular rhythm, S1 normal heart sound, S2 normal heart sound and no murmurs GI normal to inspection, nondistended, normoactive bowel sounds, non-tender, non-distended and no masses Auscultation: normoactive bowel sounds Palpation: soft; Negative for tender, guarding or rebound tenderness present Back/Spine no CVA tenderness General Back: Negative for CVA tenderness Cervical Spine: Negative for cervical spine tenderness Thoracic Spine / Upper Back: Negative for thoracic spinal tenderness Extremity normal to inspection General Extremety ED: Negative for edema or tenderness General Extremity: Negative for edema Neuro oriented x3 and CN's II-XII intact bilaterally Sensorium / Orientation: alert; Negative for orientation impaired, lethargic or stuporous Motor Exam: strength 5/5 throughout Psych mental status grossly normal Appearance: Negative for unkempt Mood & Affect: Negative for depressed or tearful Skin no rashes or lesions noted and no wounds General Skin Exam: Negative for jaundice or pallor MDM MDM MDM Narrative Medical decision making narrative: 70-year-old hypoxic tested Covid +3 days ago. She has not received monoclonal antibodies nor been on any steroids. Labs and x-ray to be obtained. Most likely she is going to need to be admitted. She will be started on Decadron given IV fluids. Lab Data Attestation: I reviewed the patient's lab results. Lab results narrative: CBC shows a white count of 4. Hemoglobin 13.8. Platelets are low at 110. D-dimer is elevated 1.36. Electrolytes show a gap of 9 BUN of 56 creatinine 2.87. Due to her renal function we will be unable to do a CTA at this time. Liver enzymes are unremarkable at this time. Chest x-ray has bilateral infiltrates consistent with Covid pneumonitis. Labs: Laboratory Results - last 24 hr 07/18/21 07/18/21 07/18/21 10:55 10:55 10:55 WBC 4.4 RBC 5.57 H Hgb 13.8 Hct 45.0 MCV 80.8 L MCH 24.8 L MCHC 30.7 L RDW Std Deviation 43.4 RDW Coeff of [place] 14.8 H Plt Count 110 L MPV 10.8 Immature Gran % (Auto) 0.500 Neut % (Auto) 59.2 Lymph % (Auto) 27.8 [place] % (Auto) 12.0 H Eos % (Auto) 0.0 Baso % (Auto) 0.5 Absolute Neuts (auto) 2.6 Absolute Lymphs (auto) 1.23 Nucleated RBC % 0 D-Dimer Quant (PE/DVT) 1.36 H* Sodium 139 Potassium 4.5 Chloride 108 H Carbon Dioxide 22.0 Anion Gap 9 BUN 56 H Creatinine 2.87 H Estim Creat Clear Calc 13.57 Est GFR (MDRD) Af Amer 21 L Est GFR (MDRD) Non-Af 17 L BUN/Creatinine Ratio 19.5 Glucose 175 H Calcium 8.3 L Total Bilirubin 0.40 AST 37 ALT 23 Alkaline Phosphatase 53 Total Protein 7.0 Albumin 2.6 L Globulin 4.4 H Albumin/Globulin Ratio 0.6 L Radiography Chest X-Ray - ED: 1 View, Read by ED Physician, Right Infiltrate and Left Infiltrate Diagnostic Testing: Chest x-ray portable, single 1 view interpreted by myself shows bilateral infiltrates consistent with Covid pneumonitis. Rhythm Strip Rhythm Strip: Sinus Rhythm Rate: 91 Ectopy: None EKG Initial EKG: Attestation: I personally reviewed and interpreted this EKG as follows: Interpretation: Sinus Rhythm and No Acute Injury Pattern Comments: Normal sinus rhythm rate of 91 no acute signs of NV or ischemia. Discharge Plan Triage Chief Complaint: Weakness ED Provider: Alexei Blair Dx/Rx/DC Orders Prescriptions: No Action insulin aspart U-100 [Novolog Flexpen U-100 Insulin] 100 unit/mL insulin pen 15 unit SC TIDCM RF: 0 amlodipine 10 mg tablet See Rx Instructions .ROUTE .COMPLEX Qty: 90 RF: 3 clopidogrel 75 mg tablet 75 mg PO DAILY Qty: 90 RF: 3 isosorbide mononitrate 60 mg tablet extended release 24 hr 60 mg PO DAILY Qty: 90 RF: 3 lisinopril 20 mg tablet 20 mg PO BID Qty: 180 RF: 3 metoprolol succinate 50 mg tablet extended release 24 hr See Rx Instructions .ROUTE .COMPLEX Qty: 90 RF: 3 simvastatin 20 mg tablet See Rx Instructions .ROUTE .COMPLEX Qty: 90 RF: 3 nitroglycerin 0.4 mg tablet, sublingual 0.4 mg sublingual Q5M PRN (Reason: Chest Pain) Qty: 25 RF: 3 meclizine 25 MG tablet 25 mg PO TID PRN PRN (Reason: Vertigo) Qty: 14 RF: 0 Primary Care Provider: Annette Mckinley
[2021-07-18] MEDS: 0.9% Normal Saline 1,000 ML 1000 ML IV (10:53)
[2021-07-18] MEDS: dexAMETHasone 10 MG/ML Vial IV (10:54)
[2021-07-18] MEDS: Acetaminophen 325 MG Tablet 650 MG PO ×2 (10:54→21:27)
[2021-07-18 11:09] LABS: Absolute Lymphocyte Count 1.23 X10^3/uL (0.83-4.51); Absolute Neutrophil Count 2.6 X10^3/uL (2.0-7.7); Basophil# 0.02 X10^3/uL; Basophil% 0.5 % (0-1); Hemoglobin 13.8 g/dL (12.0-15.0); Lymphocyte # 1.23 X10^3/ul (0.83-4.51); Lymphocyte % 27.8 % (19-41); Mean Corp Hgb Conc 30.7 g/dL (32-36); Mean Corpuscular Hgb 24.8 pg (27.0-32.0); Mean Corpuscular Volume 80.8 fL (81-99); Mean Platelet Vol. 10.8 fl (6.2-12.0); Monocyte# 0.53 X10^3/uL; NRBC Flagged by Analyzer 0 % (0-5); Neutrophil # 2.62 X10^3/uL (2.7-7.7); Neutrophil % 59.2 % (47-70); Platelet Count 110 K/mm3 (150-450); RBC Distribution Width CV 14.8 % (11.6-14.6); RBC Distribution Width SD 43.4 fl (35.1-43.9); Red Blood Count 5.57 M/mm3 (4.2-5.4); White Blood Count 4.4 K/mm3 (4.4-11.0)
[2021-07-18 11:20] LABS: D-Dimer Quantitative (DVT/PE) 1.36 FEU/ug/m (0.27-0.49)
[2021-07-18 11:26] LABS: ALB/GLOB Ratio 0.6 RATIO (0.9-2.4); AST(SGOT) 37 U/L (15-37); Alanine Aminotransfer ALT/SGPT 23 U/L (13-56); Albumin, Serum 2.6 g/dL (3.2-5.0); Alkaline Phosphatase 53 U/L (45-117); Anion Gap 9 (5-15); BUN 56 mg/dL (7-18); BUN/Creat Ratio 19.5 RATIO (10-20); Calcium,Total 8.3 mg/dL (8.5-10.1); Chloride 108 mmol/L (98-107); Creatinine, Serum 2.87 mg/dL (0.55-1.02); EST Glomerular Filtration Rate 17 mL/min (>60); Est Glom Filt Rate - Afr Amer 21 mL/min (>60); Estimated Creatinine Clearance 13.57 ml/min; Globulin 4.4 g/dL (2.2-4.2); Glucose 175 mg/dL (74-106); Potassium 4.5 mmol/L (3.5-5.1); Sodium Level 139 mmol/L (136-145)
--- NOTE | 2021-07-18 11:35 | RAD_ITS ---
STUDY: X-RAY CHEST REASON FOR EXAM: Female, 70 years old. History of Covid 19 TECHNIQUE: Single AP portable view of the chest. COMPARISON: 09/18/2019. FINDINGS: Patchy infiltrates predominantly in the right lower lung could reflect recurrent pneumonia. There is no demonstrated pleural abnormality. There is borderline cardiomegaly. Normal mediastinum and stefany. Normal visualized pulmonary arteries. 3 Unchanged osseous structures. There is no demonstrated abnormality of the visualized soft tissue structures of the upper abdomen. RAD/Chest 1 View (Portable) IMPRESSION: Bilateral lower lungs infiltrates concerning for pneumonia. Electronically Signed: Ludwig Lujan, at 12:14 EST Tel , Service support ,
--- NOTE | 2021-07-18 12:22 | HP.PCM.HOS_ITS ---
HPI - General General Date of Admission: 07/18/21 Date of Service: 07/18/21 Chief Complaint: Generalized weakness, shortness of breath - 1 week HPI Narrative NIKUNJ LORD, is a 70 F who presents with the above. Patient is unvaccinated. She started having fever, chills, diarrhea ongoing for more than 1 week. Per and lives alone. She tested positive for Covid about 3 days prior to admission. Her pulse ox was 54% on room air. She improved on 4 L of oxygen. She admits to having had diarrhea, nausea and vomiting but that has resolved by the last 2 days. Admitting chest x-ray showed bilateral lung infiltrates. Admitting creatinine was 2.87. Previous creatinine in 2019 was 1.21. Patient denies any knowledge of any kidney insufficiency [facility] Medical History Anxiety Atherosclerosis of coronary artery of [place] heart without angina pectoris Chronic diastolic CHF (congestive heart failure) Chronic kidney disease (CKD) Claudication Diabetes mellitus, type II Essential (primary) hypertension Hepatitis Hyperlipidemia Non-ST elevation (NSTEMI) myocardial infarction (06/22/18) Obesity Peripheral vascular occlusive disease Secondary pulmonary arterial hypertension Home Medications insulin aspart U-100 100 unit/mL (3 mL) subcutaneous pen 15 unit SC TIDCM ml 07/26/17 [History Last Taken 11/18/19] meclizine 25 mg PO TID PRN PRN #14 tab 11/20/19 [Rx Last Taken Unknown] amlodipine 10 mg tablet See Rx Instructions .ROUTE .COMPLEX #90 tablet 12/25/20 [Rx Last Taken Unknown] clopidogrel 75 mg tablet 75 mg PO DAILY #90 tab 12/25/20 [Rx Last Taken Unknown] isosorbide mononitrate 60 mg tablet,extended release 24 hr 60 mg PO DAILY #90 tab 12/25/20 [Rx Last Taken Unknown] lisinopril 20 mg tablet 20 mg PO BID #180 tab 12/25/20 [Rx Last Taken Unknown] metoprolol succinate 50 mg tablet,extended release 24 hr See Rx Instructions .ROUTE .COMPLEX #90 tablet 12/25/20 [Rx Last Taken Unknown] simvastatin 20 mg tablet See Rx Instructions .ROUTE .COMPLEX #90 tablet 12/25/20 [Rx Last Taken Unknown] nitroglycerin 0.4 mg sublingual tablet 0.4 mg SUBLINGUAL Q5M PRN #25 tab 06/10 01/28 [Rx Last Taken Unknown] Allergy/AdvReac Type Severity Reaction Status Date / Time acetaminophen [From [place]] Allergy Upset Verified 07/18/21 10:31 Stomach aspirin Allergy Bleeding Verified 07/18/21 10:31 hydrocodone [From [place]] Allergy Upset Verified 07/18/21 10:31 Stomach metformin Allergy Nausea Verified 07/18/21 10:31 Family History Mother Arthritis Father Arthritis Surgical History History of angioplasty of peripheral vessel (02/28/19) History of coronary artery stent placement (09/03/19) History of total abdominal hysterectomy S/P colonoscopy Social History Smoking Status: Former smoker second hand exposure: No alcohol intake: never substance use type: does not use ROS ROS Narrative Constitutional: Reports: Malaise, Weakness, Fatigue. Denies: Anorexia, Chills, Fever, Night Sweats, Weight Change Eyes: Denies: Blurred vision, Cataracts, Conjunctivae Inflammation, Pain, Redness, Vision Change HEENT: Denies: Difficulty Hearing, Difficulty Swallowing, Head Aches, Hearing Changes, Sinus Congestion, Sinus Drainage Cardiovascular: Denies: Chest Pain, Orthopnea, Palpitations Respiratory: Admits to: Cough, Shortness of breath at rest,Denies: Sputum production Gastrointestinal: Denies: Abdominal Pain, Nausea, Vomiting Genitourinary: Denies: Dysuria Musculoskeletal: Denies: Joint Pain, Joint stiffness, Joint swelling, Joint Tenderness Skin: Denies: Rash, Wounds Neurological: Denies: Numbness, Tingling, Focal weakness Vital Signs Vital Signs Vital Signs: 07/18/21 10:32 07/18/21 10:39 07/18/21 10:43 Temperature 100.2 F H 100.2 F H Temperature Source Oral Oral Pulse Rate 102 H 97 Respiratory Rate 18 14 Respiratory Effort Short of Breath Respiratory Pattern Normal Blood Pressure 154/85 H 154/85 H Blood Pressure Mean 108 108 Pulse Ox 54 100 Oxygen Delivery Method Room Air Nasal Cannula Oxygen Flow Rate (L/min) 4 07/18/21 11:45 Temperature Temperature Source Pulse Rate Respiratory Rate Respiratory Effort Respiratory Pattern Blood Pressure Blood Pressure Mean Pulse Ox 100 Oxygen Delivery Method Nasal Cannula Oxygen Flow Rate (L/min) 3.5 Weight Weight: 83 kg Body Mass Index (BMI) 34.5 Results Lab / Micro Data Result Diagrams: 07/19/21 14:12 07/19/21 14:12 Labs: Laboratory Results - last 24 hr 07/18/21 10:55: WBC 4.4, RBC 5.57 H, Hgb 13.8, Hct 45.0, MCV 80.8 L, MCH 24.8 L, MCHC 30.7 L, RDW Std Deviation 43.4, RDW Coeff of [place] 14.8 H, Plt Count 110 L, MPV 10.8, Immature Gran % (Auto) 0.500, Neut % (Auto) 59.2, Lymph % (Auto) 27.8, [place] % (Auto) 12.0 H, Eos % (Auto) 0.0, Baso % (Auto) 0.5, Absolute Neuts (auto) 2.6, Absolute Lymphs (auto) 1.23, Nucleated RBC % 0 07/18/21 10:55: D-Dimer Quant (PE/DVT) 1.36 H* 07/18/21 10:55: Sodium 139, Potassium 4.5, Chloride 108 H, Carbon Dioxide 22.0, Anion Gap 9, BUN 56 H, Creatinine 2.87 H, Estim Creat Clear Calc 13.57, Est GFR (MDRD) Af Amer 21 L, Est GFR (MDRD) Non-Af 17 L, BUN/Creatinine Ratio 19.5, Glucose 175 H, Calcium 8.3 L, Total Bilirubin 0.40, AST 37, ALT 23, Alkaline Phosphatase 53, Total Protein 7.0, Albumin 2.6 L, Globulin 4.4 H, Albumin/Globulin Ratio 0.6 L Rhythm Strip Rhythm Strip: Sinus Rhythm Rate: 91 Ectopy: None Radiology Impression Chest X-Ray 07/18/21 11:35 IMPRESSION: Bilateral lower lungs infiltrates concerning for pneumonia. Electronically Signed: Ludwig Lujan, at 12:14 EST Tel , Service support , Assessment & Plan Assessment/Plan (1) Pneumonia due to COVID-19 virus: (2) Hypoxia: (3) Acute kidney injury: PLAN: 1. Acute hypoxic respiratory failure secondary to acute COVID-19 pneumonia Patient is unvaccinated, on 4 L of oxygen Added on dexamethasone, will continue same Not a candidate for remdesivir on account of acute kidney injury Continue to encourage use of incentive spirometer 2. Acute kidney injury on CKD stage 3a, prerenal likely secondary to dehydration from previous diarrhea Admitting creatinine 2.87, baseline creatinine between 1.11.2 Will start on gentle IV fluids, repeat blood work in a.m. Hold lisinopril 3. Type DM, continue home regimen with insulin sliding 4. Rest of her chronic medical conditions CAD status post stent/chronic diastolic CHF/pulmonary hypertension/hypertension/hyperlipidemia remained stable. Continue simvastatin, metoprolol, Plavix, amlodipine I discussed and explained in details the various types of CODE STATUS-full code, DNR CCA, DNR CC. Patient chose to be DNR CCA, no intubation. Time spent discussing CODE STATUS 16 minutes Charges/Coding Visit Charges Inpatient E&M: 70924 Init Hosp L3 Procedures Hospitalists Procedures: 25223 Advncd Care Plan 30 Min
[2021-07-18 12:23] LABS: Mucous, Urine 0 SEEN /hpf (<or=2+)
[2021-07-18 12:38] LABS: Color, Urine Straw (Yellow); Glucose, Dipstick Normal (Normal); Ketone-Dipstick Negative (Negative); Leukocyte Esterase-Dipstick 500 /ul (Negative); Nitrite-Dipstick Negative (Negative); Occult Blood-Urine 10 /ul (Negative); Protein-Dipstick 500 mg/dl (Negative); Urine Bilirubin Dipstick Negative (Negative); Urine Clarity Sl. Cloudy (Clear); Urine Urobilinogen Normal (Normal)
[2021-07-18 12:48] LABS: Bacteria 1+ /hpf (None Seen); Red Blood Cells-Urine 0-5 SEEN /hpf (0-5); Squamous Epithelial Cells - UA 0-5 SEEN /hpf (5-10); White Blood Cells 25-50 SEEN /hpf (0-5)
[2021-07-18] MEDS: 0.9% Normal Saline 1,000 ML 100 ML IV ×2 (14:47→23:58)
[2021-07-18 15:26] LABS: Bedside Glucose 229 mg/dL (70-110)
[2021-07-18] MEDS: Glucerna Shake 120 ML LIQUID PO (16:49)
[2021-07-18] MEDS: Insulin Lispro 100 UNIT/ML INSULN.PEN SC ×2 (16:50→21:27)
[2021-07-18] MEDS: Insulin Lispro 100 UNIT/ML INSULN.PEN 15 UNIT SC (16:50)
[2021-07-18] MEDS: Atorvastatin Calcium 10 MG Tablet PO (21:27)
[2021-07-18 21:50] LABS: Bedside Glucose 254 mg/dL (70-110)
[2021-07-19] VITALS (13 sets, daily range): BP systolic 141–185; BP diastolic 59–81; PULSE 69–88; RESP 16–20; TEMP 36.6–36.9; O2SAT 94–98
[2021-07-19] MEDS: hydrALAZINE 20 MG/ML Vial 5 MG IV ×2 (00:07→03:26)
[2021-07-19] MEDS: Insulin Lispro 100 UNIT/ML INSULN.PEN 15 UNIT SC ×3 (08:32→17:30)
[2021-07-19] MEDS: Insulin Lispro 100 UNIT/ML INSULN.PEN SC ×3 (08:33→17:30)
[2021-07-19 08:55] LABS: Bedside Glucose 215 mg/dL (70-110)
[2021-07-19] MEDS: 0.9% Normal Saline 1,000 ML 100 ML IV ×2 (12:18→20:32)
[2021-07-19] MEDS: Clopidogrel Bisulfate 75 MG Tablet PO (12:20)
[2021-07-19] MEDS: Isosorbide Mononitrate 60 MG Tablet PO (12:20)
[2021-07-19] MEDS: amLODIPine 10 MG Tablet PO (12:20)
[2021-07-19] MEDS: dexAMETHasone 4 MG Tablet 6 MG PO (12:20)
[2021-07-19] MEDS: Metoprolol(XL)Succ 50 MG Tablet PO (12:20)
[2021-07-19 12:40] LABS: Bedside Glucose 150 mg/dL (70-110)
[2021-07-19 14:18] LABS: Absolute Lymphocyte Count 1.16 X10^3/uL (0.83-4.51); Absolute Neutrophil Count 3.7 X10^3/uL (2.0-7.7); Basophil# 0.01 X10^3/uL; Basophil% 0.2 % (0-1); Hematocrit 41.8 % (37-47); Hemoglobin 13.2 g/dL (12.0-15.0); Lymphocyte # 1.16 X10^3/ul (0.83-4.51); Lymphocyte % 21.7 % (19-41); Mean Corp Hgb Conc 31.6 g/dL (32-36); Mean Corpuscular Hgb 25.8 pg (27.0-32.0); Mean Corpuscular Volume 81.6 fL (81-99); Mean Platelet Vol. 11.2 fl (6.2-12.0); Monocyte# 0.46 X10^3/uL; Monocyte% 8.6 % (0-10); NRBC Flagged by Analyzer 0 % (0-5); Neutrophil # 3.67 X10^3/uL (2.7-7.7); Neutrophil % 68.8 % (47-70); Platelet Count 134 K/mm3 (150-450); RBC Distribution Width CV 14.8 % (11.6-14.6); RBC Distribution Width SD 44.3 fl (35.1-43.9); Red Blood Count 5.12 M/mm3 (4.2-5.4); White Blood Count 5.3 K/mm3 (4.4-11.0)
[2021-07-19 14:34] LABS: ALB/GLOB Ratio 0.7 RATIO (0.9-2.4); AST(SGOT) 32 U/L (15-37); Alanine Aminotransfer ALT/SGPT 22 U/L (13-56); Albumin, Serum 2.3 g/dL (3.2-5.0); Alkaline Phosphatase 50 U/L (45-117); Anion Gap 12 (5-15); BUN 70 mg/dL (7-18); BUN/Creat Ratio 23.7 RATIO (10-20); Calcium,Total 7.2 mg/dL (8.5-10.1); Chloride 109 mmol/L (98-107); Creatinine, Serum 2.95 mg/dL (0.55-1.02); EST Glomerular Filtration Rate 17 mL/min (>60); Est Glom Filt Rate - Afr Amer 20 mL/min (>60); Globulin 3.5 g/dL (2.2-4.2); Glucose 223 mg/dL (74-106); Potassium 4.6 mmol/L (3.5-5.1); Protein, Total 5.8 g/dL (6.4-8.2); Sodium Level 139 mmol/L (136-145)
--- NOTE | 2021-07-19 16:55 | PN.HOSP_ITS ---
Subjective Subjective Follow-up on acute hypoxic respiratory failure/acute COVID-19 pneumonia/acute kidney injury: Patient was seen and examined. She feels improved. She is being weaned off of oxygen. Her renal function however has gotten worse. She remains on IV fluids. She denied any fever or chills. Objective Data Objective Data Vital Signs: Vital Signs Temp Pulse Resp BP Pulse Ox 98 F 81 18 152/67 H 94 07/19/21 15:00 07/19/21 15:00 07/19/21 15:00 07/19/21 15:00 07/19/21 15:00 Oxygen Flow Rate (L/min) 1 Oxygen Delivery Method Room Air Weight: 80.7 kg Body Mass Index (BMI) 33.3 Intake & Output: Intake and Output for Last 24 Hours 07/17/21 07/18/21 07/19/21 23:59 23:59 23:59 Intake Total 2168.33 / 2168.33 1400 / 1400 Output Total 125 / 125 200 / 200 Balance 2043.33 / 2043.33 1200 / 1200 Medical Nutrition Assessment Dietitian: Malnutrition Criteria Met Start: 07/18/21 17:53 Freq: Status: Active Protocol: Document 07/18/21 17:53 RMA (Rec: 07/18/21 17:53 RMA [id number]) Nutrition Malnutrition Evidence of Malnutrition Exists Yes Malnutrition (severe): Acute Illness/Injury Evidenced By Suboptimal Energy Intake ( Severe),Weight Loss (Severe) Clinical Problem Acute Disease or Injury Related Malnutrition Etiology Severe protein/calorie malnutrition in the context of acute illness related to decreased appetite and inadequate oral intake Signs/Symptoms as evidenced by 2% wt loss x less than 1 week and PO meeting less than 50% estimated nutrition needs Status Active Problem Recommendation Dietitian Recommendations/Changes Will adjust diet to 2000 calorie; consistent carbohydrate; cardiac. Will d/c 120ml glucerna shake TID with medpass and add to meal trays TID. Lab / Micro Data Result Diagrams: 07/19/21 14:12 07/19/21 14:12 Labs: Laboratory Results - last 24 hr 07/18/21 21:19: POC Glucose 254 H 07/19/21 08:31: POC Glucose 215 H 07/19/21 12:23: POC Glucose 150 H 07/19/21 14:12: WBC 5.3, RBC 5.12, Hgb 13.2, Hct 41.8, MCV 81.6, MCH 25.8 L, MCHC 31.6 L, RDW Std Deviation 44.3 H, RDW Coeff of [place] 14.8 H, Plt Count 134 L, MPV 11.2, Immature Gran % (Auto) 0.700, Neut % (Auto) 68.8, Lymph % (Auto) 21.7, [place] % (Auto) 8.6, Eos % (Auto) 0.0, Baso % (Auto) 0.2, Absolute Neuts (auto) 3.7, Absolute Lymphs (auto) 1.16, Nucleated RBC % 0 07/19/21 14:12: Sodium 139, Potassium 4.6, Chloride 109 H, Carbon Dioxide 18.0 L , Anion Gap 12, BUN 70 H, Creatinine 2.95 H, Estim Creat Clear Calc 13.20, Est GFR (MDRD) Af Amer 20 L, Est GFR (MDRD) Non-Af 17 L, BUN/Creatinine Ratio 23.7 H , Glucose 223 H, Calcium 7.2 L, Total Bilirubin 0.30, AST 32, ALT 22, Alkaline Phosphatase 50, Total Protein 5.8 L, Albumin 2.3 L, Globulin 3.5, Albumin/Globulin Ratio 0.7 L Rhythm Strip Rhythm Strip: Sinus Rhythm Rate: 91 Ectopy: None Physical Exam Narrative Physical exam: General: Alert, Oriented x3, Cooperative, No apparent distress, Well developed HEENT: Atraumatic Oral: Moist Mucosa Neck: Supple Lungs: Diminished to auscultation Cardiovascular: HS I+II, regular, no murmurs Abdomen: Bowel Sounds Present, Soft, Non Tender Extremities: No edema Assessment & Plan Assessment/Plan (1) Pneumonia due to COVID-19 virus: (2) Hypoxia: (3) Acute kidney injury: PLAN: 1. Acute hypoxic respiratory failure secondary to acute COVID-19 pneumonia, appears improved Patient is unvaccinated, currently off oxygen Continue on dexamethasone Not a candidate for remdesivir on account of acute kidney injury Continue to encourage use of incentive spirometer 2. Acute kidney injury on CKD stage 3a, prerenal likely secondary to dehydration from previous diarrhea, worsening Creatinine today is 2.95, admitting creatinine 2.87, baseline creatinine between 1.11.2 Continue on gentle IV fluids, repeat blood work in a.m. Continue to hold lisinopril Repeat blood work in a.m. 3. Type DM, continue home regimen with insulin sliding 4. Rest of her chronic medical conditions CAD status post stent/chronic diastolic CHF/pulmonary hypertension/hypertension/hyperlipidemia remained stable. Continue simvastatin, metoprolol, Plavix, amlodipine Charges/Coding Visit Charges Inpatient E&M: 94130 Subs Hosp L2
[2021-07-19] MEDS: Enoxaparin 80 MG/0.8 ML Syringe SC (17:29)
[2021-07-19 17:51] LABS: Bedside Glucose 163 mg/dL (70-110)
--- NOTE | 2021-07-19 19:00 | PCS.PANDOC ---
PANDEMIC DOCUMENTATION INITIATED: Date: 02/23/2021 Time: 190 Emergency documentation initiated 07/19/21 @ 1900
[2021-07-19] MEDS: Atorvastatin Calcium 10 MG Tablet PO (20:29)
[2021-07-19 21:01] LABS: Bedside Glucose 131 mg/dL (70-110)
[2021-07-20] VITALS (16 sets, daily range): BP systolic 137–180; BP diastolic 66–80; PULSE 64–83; RESP 18–20; TEMP 36.6–37.2; O2SAT 88–97
[2021-07-20] MEDS: hydrALAZINE 20 MG/ML Vial 5 MG IV ×2 (03:34→21:49)
[2021-07-20] MEDS: 0.9% Normal Saline 1,000 ML 100 ML IV ×2 (06:37→16:25)
[2021-07-20 06:57] LABS: Absolute Lymphocyte Count 1.11 X10^3/uL (0.83-4.51); Absolute Neutrophil Count 3.2 X10^3/uL (2.0-7.7); Hematocrit 39.3 % (37-47); Hemoglobin 12.2 g/dL (12.0-15.0); Lymphocyte # 1.11 X10^3/ul (0.83-4.51); Lymphocyte % 22.8 % (19-41); Mean Corpuscular Hgb 25.1 pg (27.0-32.0); Mean Corpuscular Volume 80.9 fL (81-99); Mean Platelet Vol. 11.6 fl (6.2-12.0); Monocyte# 0.48 X10^3/uL; Monocyte% 9.9 % (0-10); NRBC Flagged by Analyzer 0 % (0-5); Neutrophil # 3.23 X10^3/uL (2.7-7.7); Neutrophil % 66.5 % (47-70); Platelet Count 135 K/mm3 (150-450); RBC Distribution Width CV 14.7 % (11.6-14.6); RBC Distribution Width SD 43.1 fl (35.1-43.9); Red Blood Count 4.86 M/mm3 (4.2-5.4); White Blood Count 4.9 K/mm3 (4.4-11.0)
[2021-07-20 07:18] LABS: ALB/GLOB Ratio 0.6 RATIO (0.9-2.4); AST(SGOT) 27 U/L (15-37); Alanine Aminotransfer ALT/SGPT 20 U/L (13-56); Alkaline Phosphatase 45 U/L (45-117); Anion Gap 8 (5-15); BUN 77 mg/dL (7-18); BUN/Creat Ratio 28.2 RATIO (10-20); Calcium,Total 7.2 mg/dL (8.5-10.1); Chloride 113 mmol/L (98-107); Creatinine, Serum 2.73 mg/dL (0.55-1.02); EST Glomerular Filtration Rate 18 mL/min (>60); Est Glom Filt Rate - Afr Amer 22 mL/min (>60); Estimated Creatinine Clearance 14.26 ml/min; Globulin 3.6 g/dL (2.2-4.2); Glucose 107 mg/dL (74-106); Potassium 4.6 mmol/L (3.5-5.1); Protein, Total 5.6 g/dL (6.4-8.2); Sodium Level 139 mmol/L (136-145)
[2021-07-20] MEDS: Enoxaparin 80 MG/0.8 ML Syringe SC (08:18)
[2021-07-20] MEDS: dexAMETHasone 4 MG Tablet 6 MG PO (08:18)
[2021-07-20] MEDS: amLODIPine 10 MG Tablet PO (08:19)
[2021-07-20] MEDS: Clopidogrel Bisulfate 75 MG Tablet PO (08:19)
[2021-07-20] MEDS: Metoprolol(XL)Succ 100 MG Tablet PO (08:19)
[2021-07-20] MEDS: Isosorbide Mononitrate 60 MG Tablet PO (08:19)
[2021-07-20] MEDS: Insulin Lispro 100 UNIT/ML INSULN.PEN 15 UNIT SC (08:19)
[2021-07-20 08:30] LABS: Bedside Glucose 101 mg/dL (70-110)
--- NOTE | 2021-07-20 13:12 | US_ITS ---
STUDY: RENAL ULTRASOUND - COMPLETE REASON FOR EXAM: Female, 70 years old. ASHISH COVID TECHNIQUE: Ultrasound evaluation of the kidneys was performed with real-time and static mcghee-scale imaging. COMPARISON: None. FINDINGS: RIGHT KIDNEY: Normal location of the right kidney, which is normal in size. The right kidney measures 10.4 x 4.9 cm. There is a normal cortex of the right kidney. The renal cortex measures 1.2 cm. There is no right renal mass or cyst. There are no right renal calculi. There is no right hydronephrosis. DISTAL RIGHT URETER: There is non-visualization of the distal right ureter. There is no demonstrated right ureterovesical junction calculus. There is a visualized right ureteral jet. LEFT KIDNEY: Normal location of the left kidney, which is normal in size. The left kidney measures 10.1 x 5.1 cm. There is a normal cortex of the left kidney. The renal cortex measures 1 cm. There is no left renal mass or cyst. There are no left renal calculi. There is no left hydronephrosis. DISTAL LEFT URETER: There is non-visualization of the distal left ureter. There is no demonstrated left ureterovesical junction calculus. There is a visualized left ureteral jet. AORTA: There is obscuration of the abdominal aorta by overlying bowel gas I.V.C.: The IVC is obscured. BLADDER: The distended urinary bladder has a volume of 141 ml. There is a normal wall thickness of the distended urinary bladder. There is no demonstrated mass within the urinary bladder. There are no demonstrated bladder calculi. US/Kidney and Bladder IMPRESSION: There are no acute findings. Electronically Signed: Jordon Pappas MD at 18:44 EST , Service support ,
[2021-07-20 13:56] LABS: Bedside Glucose 73 mg/dL (70-110)
--- NOTE | 2021-07-20 15:15 | CASEMGMT ---
AMY ADORNO Assessment: Face to Face with pt for initial transition planning/care coordination assessment. AMY ADORNO introduced self and role at [facility], pt voices understanding and consents to assessment. Pt is A/O x4 and answers all questions appropriately at this time. Pt sitting up in chair on RA in no distress. Care providers, pharmacy, and demographics verified/updated. Admitting Dx: COVID/ASHISH PCP:Elías Specialists:Pt denies. Preferred Pharmacy: [facility] Insurance: [employer] [place] Prescription Benefit: yes LW/HPOA: Pt states she just completed a LW/DPOA and the DPOA is her sister, Evelin Zfaar. She states that she needs to get a copy to her and to the hospital. LNOK: Lucisunitha Goldsmith, friend; Evelin Zafar, sister Living Arrangements: Pt lives alone in a mobile home with 4 steps to enter with rails on both sides. Pt reports she is I in ADL's and denies concerns at home. Transportation: Pt does not drive. She uses [employer] for transportation to medical appts. DME/HHC/SNF: Pt has a walker at home but does not use. She has a shower chair and a BGM that scans. She has supplies for BGM as well as her insulin and needles. Pt has had [facility] HHC in the past and denies SNF stays. Pt states no concerns with going home at time of dc. Pt states no further concerns/needs. CM to follow. Advised pt to ask CM if any further question/concerns/needs arise, voices understanding. Pt first test positive for COVID at [facility]. Pt just got off the phone with her sister who is calling [employer] to have meals delivered to her home. Provided pt with a local in network list of DME companies should pt be dc'd on O2, pt denies preference. Pt Goal: Home Plan:Home
--- NOTE | 2021-07-20 15:40 | PN.HOSP_ITS ---
Subjective Subjective Patient seen and examined. She complained of nausea. She had no other complaints. She had a bowel movement today after 4 days. She is on room air. Cr has trended down slightly. Review of systems otherwise negative. Objective Data Objective Data Vital Signs: Vital Signs Temp Pulse Resp BP Pulse Ox 99 F 82 20 H 137/75 H 91 07/20/21 13:48 07/20/21 13:48 07/20/21 13:48 07/20/21 13:48 07/20/21 13:48 Oxygen Flow Rate (L/min) 1 Oxygen Delivery Method Room Air Weight: 177 lb 14.609 oz Body Mass Index (BMI) 33.3 Intake & Output: Intake and Output for Last 24 Hours 07/18/21 07/19/21 07/20/21 23:59 23:59 23:59 Intake Total 2168.33 / 2168.33 2523.33 / 2773.33 1250 / 1250 Output Total 125 / 125 400 / 700 950 / 950 Balance 2043.33 / 2043.33 2123.33 / 2073.33 300 / 300 Medical Nutrition Assessment Dietitian: Malnutrition Criteria Met Start: 07/18/21 17:53 Freq: Status: Active Protocol: Document 07/18/21 17:53 RMA (Rec: 07/18/21 17:53 RMA [id number]) Nutrition Malnutrition Evidence of Malnutrition Exists Yes Malnutrition (severe): Acute Illness/Injury Evidenced By Suboptimal Energy Intake ( Severe),Weight Loss (Severe) Clinical Problem Acute Disease or Injury Related Malnutrition Etiology Severe protein/calorie malnutrition in the context of acute illness related to decreased appetite and inadequate oral intake Signs/Symptoms as evidenced by 2% wt loss x less than 1 week and PO meeting less than 50% estimated nutrition needs Status Active Problem Recommendation Dietitian Recommendations/Changes Will adjust diet to 2000 calorie; consistent carbohydrate; cardiac. Will d/c 120ml glucerna shake TID with medpass and add to meal trays TID. Lab / Micro Data Result Diagrams: 07/20/21 06:40 07/20/21 06:40 Labs: Laboratory Results - last 24 hr 07/19/21 17:27: POC Glucose 163 H 07/19/21 20:26: POC Glucose 131 H 07/20/21 06:40: WBC 4.9, RBC 4.86, Hgb 12.2, Hct 39.3, MCV 80.9 L, MCH 25.1 L, MCHC 31.0 L, RDW Std Deviation 43.1, RDW Coeff of Chelsey 14.7 H, Plt Count 135 L, MPV 11.6, Immature Gran % (Auto) 0.800, Neut % (Auto) 66.5, Lymph % (Auto) 22.8, [place] % (Auto) 9.9, Eos % (Auto) 0.0, Baso % (Auto) 0.0, Absolute Neuts (auto) 3.2, Absolute Lymphs (auto) 1.11, Nucleated RBC % 0 07/20/21 06:40: Sodium 139, Potassium 4.6, Chloride 113 H, Carbon Dioxide 18.0 L , Anion Gap 8, BUN 77 H, Creatinine 2.73 H, Estim Creat Clear Calc 14.26, Est GFR (MDRD) Af Amer 22 L, Est GFR (MDRD) Non-Af 18 L, BUN/Creatinine Ratio 28.2 H , Glucose 107 H, Calcium 7.2 L, Total Bilirubin 0.30, AST 27, ALT 20, Alkaline Phosphatase 45, Total Protein 5.6 L, Albumin 2.0 L, Globulin 3.6, Albumin/Globulin Ratio 0.6 L 07/20/21 08:15: POC Glucose 101 07/20/21 12:27: POC Glucose 73 Rhythm Strip Rhythm Strip: Sinus Rhythm Rate: 91 Ectopy: None Physical Exam Const alert, oriented x3 and no apparent distress Exam Limitations: no limitations HEENT head/scalp atraumatic and moist oral mucous membranes Head and Scalp: normocephalic Eyes PERRL, EOMs intact bilaterally and conjunctivae normal Neck no lymphadenopathy and supple Resp normal respiratory effort, no retractions, no use of accessory muscles and clear to auscultation bilaterally Cardio regular rate, regular rhythm, S1 normal heart sound, S2 normal heart sound and no murmurs GI normal to inspection, nondistended, normoactive bowel sounds, soft to palpation, non-tender and non-distended Extremity normal to inspection, full ROM and no clubbing, cyanosis or edema Peripheral Pulses: Yes pulses 2+ throughout Skin no rashes or lesions noted Neuro oriented x3, CN's II-XII intact bilaterally and moves all extremities Sensorium / Orientation: awake and alert Psych affect normal Assessment & Plan Assessment/Plan (1) Pneumonia due to COVID-19 virus: (2) Hypoxia: (3) Acute kidney injury: PLAN: #Acute hypoxic respiratory insufficiency due to COVID-19 pneumonia * Resolved. Now on room air. * On dexamethasone. Not a candidate for remdesivir due to kidney function. * Give oxygen as needed and titrate to maintain saturation above 90%. Breathing treatments bronchodilators. * #ASHISH on CKD stage III * Admitting creatinine was 2.87 and creatinine trended up to 2.95. Cr today is down to 2.73 * Her baseline creatinine in the record is from 2 years ago and so I am not sure whether there is upward trend in her creatinine is a worsening of his CKD versus an ASHISH on CKD. * Patient is being hydrated with IV fluid normal saline 100 cc/h. Lisinopril on hold. * Patient did have a renal ultrasound in 2019 which showed cortical thinning of the right kidney. I will get a repeat renal ultrasound and also check urine electrolytes to calculate Fe urea. Urinalysis showed proteinuria. * Consider nephrology consult if kidney function worsens. * She is not cumulative positive balance by 4.46 L; however, her weight has gone down by 5 pounds since admission, so I am doubtful about the accuracy of the intake output data * #Non-anion gap metabolic acidosis. Bicarb is 18 with anion gap of 8. This is likely due to impaired kidney function. Will monitor. #CAD s/p stents: On Plavix and metoprolol as well as statin and Imdur #Hypertension: On amlodipine and metoprolol #Hyperlipidemia: On statin DVT prophylaxis: switch from lovenox to heparin o/a of impaired kidney function Charges/Coding Visit Charges Inpatient E&M: 44239 Subs Hosp L2
[2021-07-20] MEDS: Insulin Lispro 100 UNIT/ML INSULN.PEN SC ×2 (16:22→21:50)
[2021-07-20] MEDS: Acetaminophen 325 MG Tablet 650 MG PO (16:22)
[2021-07-20 16:40] LABS: Bedside Glucose 207 mg/dL (70-110)
--- NOTE | 2021-07-20 16:43 | NURSING ---
Patient was assisted to BR and back to bed. Pulse ox was consistently in the mid 80's. 2L 02 applied and sp02 is up to 93%. Will monitor.
[2021-07-20 20:08] LABS: Urea Nitrogen, Urine 543 mg/dL (NO RANGE EST.)
[2021-07-20] MEDS: Atorvastatin Calcium 10 MG Tablet PO (21:49)
[2021-07-20] MEDS: Heparin Injection (Vial) 5,000 UNIT/ML VIAL 5000 UNIT SC (21:49)
[2021-07-20 22:20] LABS: Bedside Glucose 223 mg/dL (70-110)
[2021-07-21] VITALS (20 sets, daily range): BP systolic 140–208; BP diastolic 61–105; PULSE 67–96; RESP 12–55; TEMP 36.8–37.4; O2SAT 85–99
--- NOTE | 2021-07-21 03:43 | NURSING ---
0130 PT DESAT'D ON MONITOR. FO0UND TO BE ON BSC WITH O2 REMOVED AND AT 60%. DISCUSSED IMPORTANCE OF KEEPING O2 TUBING IN NOSE TO MAINTAIN SAFE SPO2 LEVELS. SPO2 LEVEL RESORTED TO 90% AND PT RETURNED TO BED. BED EXIT ON. 0200 SPO2 LEVEL ON MONITOR IS 80%. ASSISTED PT W/I.S. AND BREATHING EXERCISES. ATTEMPTED OT USE DIFFERENT MONITORS, BUT ALL SHOW LOW SPO2. 0245 PT REMOVED O2 TUBING WHILE IN BED AND DESATT'D TO LOW 70S. THIS RN REPLACED TUBING. PT USED I.S. RECOVERED TO 90% 0330 PT SHOWED 65% ON MONITOR. RN FOUND PT WITH O2 ON, LYING PERPENDICULAR IN THE BED WITH LOW SPO2. REPOSITIONED IN BED. PT KEPT STATING SHE NEEDED TO USE THE BR, BUT RN REMINDED HER THAT BREATHING IS MORE IMPORTANT AT THIS TIME. AND SHE NEEDS TO FOCUS ON BREATHING UNTIL HER SPO2 HAS RETURNED. MAINTAINED SPO2 LEVEL <85% FOR 20M. RESP CALLED. 0355 SPO2 REMAINS AT <85% CONSISTENTLY. NON-REBREATHER WITH 10L BLED IN PLACED ON TOP OF 10L NC. [employer] TO NOTIFY DR MADSEN. 3886. PT SPO2 IMPROVED ENOUGH TO ASSIST TO BSC W/NON-REBREATHER & NC IN PLACE. RETURNED TO BED AND SPO2 MAINTAINED AT >80% WITH SATS BETWEEN 85-95%. NON-REBREATHER W/10L AND NC W/10 STILL APPLIED. WILL MONITOR.
[2021-07-21] MEDS: 0.9% Saline Lock 10 ML Syringe IV ×5 (04:25→20:09)
[2021-07-21] MEDS: Furosemide 20 MG/2 ML VIAL IV (04:25)
[2021-07-21] MEDS: LORazepam 0.5 MG Tablet PO (05:24)
[2021-07-21] MEDS: Heparin Injection (Vial) 5,000 UNIT/ML VIAL 5000 UNIT SC ×3 (05:25→20:10)
--- NOTE | 2021-07-21 07:51 | RAD_ITS ---
STUDY: X-RAY CHEST REASON FOR EXAM: Female, 70 years old. Acute hypoxic respiratory failure TECHNIQUE: Single AP portable view of the chest. COMPARISON: Comparison is made with prior study dated July 2021. FINDINGS: EKG electrodes are seen. There now is evidence of diffuse bilateral pulmonary infiltrates as compared to prior study. There is no demonstrated pleural abnormality. There is mild cardiac enlargement. Normal mediastinum and steafny. Normal visualized pulmonary arteries. Normal visualized aortic arch and descending thoracic aorta. There are diffuse degenerative changes of the visualized thoracic spine. Prior right rotator cuff surgery. There is no demonstrated abnormality of the visualized soft tissue structures of the upper abdomen. RAD/Chest 1 View (Portable) IMPRESSION: Diffuse bilateral pulmonary infiltrates. Electronically Signed: Teto De La Torre MD at 11:53 EST , Service support ,
[2021-07-21] MEDS: Insulin Lispro 100 UNIT/ML INSULN.PEN SC ×4 (08:44→20:11)
[2021-07-21] MEDS: Furosemide 40 MG/4 ML Vial IV ×2 (08:58→16:47)
[2021-07-21] MEDS: hydrALAZINE 20 MG/ML Vial 5 MG IV ×3 (08:58→20:09)
[2021-07-21] MEDS: Metoprolol(XL)Succ 100 MG Tablet PO (09:00)
[2021-07-21] MEDS: Clopidogrel Bisulfate 75 MG Tablet PO (09:00)
[2021-07-21] MEDS: Isosorbide Mononitrate 60 MG Tablet PO (09:00)
[2021-07-21] MEDS: amLODIPine 10 MG Tablet PO (09:01)
[2021-07-21] MEDS: dexAMETHasone 4 MG Tablet 6 MG PO (09:01)
[2021-07-21] MEDS: LORazepam 2 MG/ML Syringe 1 MG IV (09:10)
[2021-07-21 09:46] LABS: Bedside Glucose 168 mg/dL (70-110)
--- NOTE | 2021-07-21 10:04 | NURSING ---
Addendum entered by Eda Serrano 07/21/21 10:09: BP IMPROVED AFTER IV HYDRALAZINE. RESTING W/EYES CLOSED AT THIS TIME Original Note: PT NOW ON BIPAP. ICU STAFF HERE TO DRAW LABS AND VBG. SPO2 94. PT REMINDED MULTIPLE TIMES TO LEAVE BIPAP ON
--- NOTE | 2021-07-21 11:17 | PN.HOSP_ITS ---
Subjective Subjective Patient seen and examined. SHe became acutely short of breath overnight, and had to be put on oxygen. Her fluids were discontinued, and she was given a dose of lasix. This morning, she remains short of breath, and was on 13L of oxygen at time I reviewed her, with nonrebreather mask as well. She was very anxious and agitated. She denied any chest pain, palpitations, dizziness, nausea or vomiting. Review of systems is otherwise negative. She is in positive balance by 6.296L. Lab unable to draw blood sample this morning. Objective Data Objective Data Vital Signs: Vital Signs Temp Pulse Resp BP Pulse Ox 98.2 F 70 55 H 140/76 H 93 07/21/21 09:19 07/21/21 09:27 07/21/21 09:27 07/21/21 09:19 07/21/21 09:27 Oxygen Flow Rate (L/min) 93 Oxygen Delivery Method Bi-pap Weight: 177 lb 14.609 oz Body Mass Index (BMI) 33.3 Intake & Output: Intake and Output for Last 24 Hours 07/19/21 07/20/21 07/21/21 23:59 23:59 23:59 Intake Total 2523.33 / 2773.33 3080 / 3080 Output Total 400 / 700 950 / 950 Balance 2123.33 / 2073.33 2130 / 2130 Medical Nutrition Assessment Dietitian: Malnutrition Criteria Met Start: 07/18/21 17:53 Freq: Status: Active Protocol: Document 07/18/21 17:53 RMA (Rec: 07/18/21 17:53 RMA [id number]) Nutrition Malnutrition Evidence of Malnutrition Exists Yes Malnutrition (severe): Acute Illness/Injury Evidenced By Suboptimal Energy Intake ( Severe),Weight Loss (Severe) Clinical Problem Acute Disease or Injury Related Malnutrition Etiology Severe protein/calorie malnutrition in the context of acute illness related to decreased appetite and inadequate oral intake Signs/Symptoms as evidenced by 2% wt loss x less than 1 week and PO meeting less than 50% estimated nutrition needs Status Active Problem Recommendation Dietitian Recommendations/Changes Will adjust diet to 2000 calorie; consistent carbohydrate; cardiac. Will d/c 120ml glucerna shake TID with medpass and add to meal trays TID. Lab / Micro Data Result Diagrams: 07/20/21 06:40 07/20/21 06:40 Labs: Laboratory Results - last 24 hr 07/20/21 12:27: POC Glucose 73 07/20/21 16:21: POC Glucose 207 H 07/20/21 19:45: Urine Creatinine 64.00, Urine Urea Nitrogen 543 07/20/21 21:40: POC Glucose 223 H 07/21/21 08:41: POC Glucose 168 H Radiography Diagnostic Testing: Radiology Impression Renal Ultrasound 07/20/21 13:12 IMPRESSION: There are no acute findings. Electronically Signed: Jordon Pappas MD at 18:44 EST , Service support , Rhythm Strip Rhythm Strip: Sinus Rhythm Rate: 91 Ectopy: None Physical Exam Const alert and oriented x3 Constitutional Narrative: agitated, distressed Exam Limitations: no limitations HEENT head/scalp atraumatic and moist oral mucous membranes Head and Scalp: normocephalic Eyes PERRL, EOMs intact bilaterally and conjunctivae normal Neck no lymphadenopathy and supple Resp Resp Narrative: tachypneic, coarse crackles in all lung h[place], on 13L of oxygen at time of review Cardio regular rate, regular rhythm, S1 normal heart sound, S2 normal heart sound and no murmurs GI normal to inspection, nondistended, normoactive bowel sounds, soft to palpation, non-tender and non-distended Extremity normal to inspection, full ROM and no clubbing, cyanosis or edema Peripheral Pulses: Yes pulses 2+ throughout Skin no rashes or lesions noted Neuro oriented x3, CN's II-XII intact bilaterally and moves all extremities Sensorium / Orientation: awake and alert Psych Mood & Affect: anxious Assessment & Plan Assessment/Plan (1) Pneumonia due to COVID-19 virus: (2) Hypoxia: (3) Acute kidney injury: PLAN: #Acute hypoxic respiratory failure due to COVID-19 pneumonia and fluid overload * became acutely short of breath overnight, requiring increasing amounts of oxygen * now on 13L of oxygen with nonrebreather mask in addition * stat cxr today showed bilateral infiltrates with bilateral obliteration of costophrenic angles, per my review * stat abg ordered, and BIPAP stat ordered. Patient started on IV lasix 40mg * pulmonology consulted. Patient started on remdesivir. Continue decadron * Titrate oxygen to maintain saturation above 90%. Breathing treatments bronchodilators. * #ASHISH on CKD stage III * Admitting creatinine was 2.87 and creatinine trended up to 2.95; it subsequently came down to .73 * Her baseline creatinine in the record is from 2 years ago and so I am not sure whether there is upward trend in her creatinine is a worsening of his CKD versus an ASHISH on CKD. * Lisinopril on hold. * renal USG done yesterday was normal * kidney function pending today * fluids discontinued due to fluid overload * kidneys being challenged with IV lasix * labs pending today. if Cr have trended upwards some more, will consult nephrology * * #Non-anion gap metabolic acidosis * Labs pending today This is likely due to impaired kidney function. Will monitor. #CAD s/p stents: On Plavix and metoprolol as well as statin and Imdur #Hypertension: On amlodipine and metoprolol #Hyperlipidemia: On statin DVT prophylaxis: heparin Charges/Coding Visit Charges Inpatient E&M: 99416 Subs Hosp L3
[2021-07-21 11:31] LABS: Bedside Glucose 220 mg/dL (70-110)
[2021-07-21] MEDS: QUEtiapine 25 MG Tablet PO ×2 (12:06→20:10)
--- NOTE | 2021-07-21 13:33 | CON.PCM.CC_ITS ---
Assessment & Plan Assessment/Plan (1) Pneumonia due to COVID-19 virus: PLAN: RECOMMENDATIONS: 1. Continue BiPAP therapy and wean FiO2 for saturations greater than 90%. 2. Obtain arterial blood gas. 3. Check procalcitonin and BNP. 4. The patient should be made n.p.o. for now. 5. Aggressive diuresis per hospitalist discretion. Discontinue IV fluids. 6. Start empiric antimicrobials. 7. Recommend goals of care discussion with the patient's family. IMPRESSIONS: 1. Acute hypoxemic respiratory failure secondary to COVID-19 pneumonia The patient was admitted to the hospital on July 18 with COVID-19 pneumonia with symptom onset sometime around July 15. She was subsequently placed on remdesivir and Decadron. However, the patient was initially treated with IV fluids and is now overall net positive from a volume perspective. Her repeat chest imaging from this morning demonstrated significant worsening in her bilateral infiltrates. Recommend aggressive diuresis as tolerated by hemodynamics and renal function. Discontinue IV fluids. Start empiric antimicrobials. Check BNP and procalcitonin. 2. Encephalopathy Likely metabolic in etiology. Check ABG to evaluate for CO2 retention. 3. Acute on chronic kidney disease Likely secondary to ATN in the setting of #1. Continue attempts at diuresis as tolerated by hemodynamics and renal function. 4. Advanced age/unvaccinated status/coronary artery disease/hypertension/hyperlipidemia Complicates care, management, recovery and prognosis. Continue home medications as indicated. This note was generated with [employer] dictation software. It may contain incorrect words, spelling, and punctuation that were not noted in checking the note before signing. HPI Consult Data Date of Consult: 07/21/21 HPI Narrative Reason for Consultation: Acute hypoxemic respiratory failure HPI Narrative: The patient is a 70-year-old female, with a history as outlined below, who presented to the emergency department via EMS on July 18 with generalized malaise and shortness of breath. The patient has a known history of coronary artery disease status post PCI to her LAD in 2017. In 2019, she underwent stenting to her right coronary artery as well. She has a known history of heart failure with preserved ejection fraction along with pulmonary hypertension. The patient is unvaccinated against coronavirus. On presentation to the emergency department, the patient was noted to have a low-grade fever but was otherwise hemodynamically stable. Initial laboratory evaluation showed no evidence of a leukocytosis. D-dimer was noted to be 1.36. Chemistry profile was notable for a creatinine of 2.87. Urine analysis was notable for leukocyte esterase and 1+ urine bacteria. The patient was initially placed on continuous IV fluids along with remdesivir and Decadron. The patient's hospitalization has been complicated by worsening hypoxemia. The patient is now requiring noninvasive positive pressure ventilatory support. She is currently documented to be overall net +6.5 L for the hospitalization. [facility] Medical History Anxiety Atherosclerosis of coronary artery of [place] heart without angina pectoris Chronic diastolic CHF (congestive heart failure) Chronic kidney disease (CKD) Claudication Diabetes mellitus, type II Essential (primary) hypertension Hepatitis Hyperlipidemia Non-ST elevation (NSTEMI) myocardial infarction (06/22/18) Obesity Peripheral vascular occlusive disease Secondary pulmonary arterial hypertension Home Medications insulin aspart U-100 100 unit/mL (3 mL) subcutaneous pen 15 unit SC TIDCM ml 07/26/17 [History Last Taken 11/18/19] meclizine 25 mg PO TID PRN PRN #14 tab 11/20/19 [Rx Last Taken Unknown] amlodipine 10 mg tablet See Rx Instructions .ROUTE .COMPLEX #90 tablet 12/25/20 [Rx Last Taken Unknown] clopidogrel 75 mg tablet 75 mg PO DAILY #90 tab 12/25/20 [Rx Last Taken Unknown] isosorbide mononitrate 60 mg tablet,extended release 24 hr 60 mg PO DAILY #90 tab 12/25/20 [Rx Last Taken Unknown] lisinopril 20 mg tablet 20 mg PO BID #180 tab 12/25/20 [Rx Last Taken Unknown] metoprolol succinate 50 mg tablet,extended release 24 hr See Rx Instructions .ROUTE .COMPLEX #90 tablet 12/25/20 [Rx Last Taken Unknown] simvastatin 20 mg tablet See Rx Instructions .ROUTE .COMPLEX #90 tablet 12/25/20 [Rx Last Taken Unknown] nitroglycerin 0.4 mg sublingual tablet 0.4 mg SUBLINGUAL Q5M PRN #25 tab 06/26/21 [Rx Last Taken Unknown] Allergy/AdvReac Type Severity Reaction Status Date / Time acetaminophen [From [place]] Allergy Upset Verified 07/18/21 10:31 Stomach aspirin Allergy Bleeding Verified 07/18/21 10:31 hydrocodone [From [place]] Allergy Upset Verified 07/18/21 10:31 Stomach metformin Allergy Nausea Verified 07/18/21 10:31 Family History Mother Arthritis Father Arthritis Surgical History History of angioplasty of peripheral vessel (02/28/19) History of coronary artery stent placement (09/03/19) History of total abdominal hysterectomy S/P colonoscopy Social History Smoking Status: Former smoker second hand exposure: No alcohol intake: never substance use type: does not use ROS Review of Systems ROS Unobtainable: due to mental status Physical Exam Const General Appearance: lethargic, ill appearing and on BiPAP Orientation / Consciousness: confused Nutritional Appearance: obese HEENT normocephalic and head/scalp atraumatic Eyes PERRL and EOMs intact bilaterally Neck supple General: trachea midline Chest inspection of chest normal Resp Effort and Inspection: tachypneic Auscultation: rales and diminished lung sounds Cardio regular rate and regular rhythm GI normal to inspection, nondistended, normoactive bowel sounds Extremity General Extremity: edema; Negative for clubbing Skin no rashes or lesions noted Neuro moves all extremities Psych Activity / Motor Behavior: restless Medical Records Data Medical Nutrition Assessment Dietitian: Malnutrition Criteria Met Start: 07/18/21 17:53 Freq: Status: Active Protocol: Document 07/18/21 17:53 RMA (Rec: 07/18/21 17:53 RMA [id number]) Nutrition Malnutrition Evidence of Malnutrition Exists Yes Malnutrition (severe): Acute Illness/Injury Evidenced By Suboptimal Energy Intake ( Severe),Weight Loss (Severe) Clinical Problem Acute Disease or Injury Related Malnutrition Etiology Severe protein/calorie malnutrition in the context of acute illness related to decreased appetite and inadequate oral intake Signs/Symptoms as evidenced by 2% wt loss x less than 1 week and PO meeting less than 50% estimated nutrition needs Status Active Problem Recommendation Dietitian Recommendations/Changes Will adjust diet to 2000 calorie; consistent carbohydrate; cardiac. Will d/c 120ml glucerna shake TID with medpass and add to meal trays TID. Lab / Micro Data Result Diagrams: 07/20/21 06:40 07/20/21 06:40 Labs: Laboratory Results - last 24 hr 07/20/21 12:27: POC Glucose 73 07/20/21 16:21: POC Glucose 207 H 07/20/21 19:45: Urine Creatinine 64.00, Urine Urea Nitrogen 543 07/20/21 21:40: POC Glucose 223 H 07/21/21 08:41: POC Glucose 168 H 07/21/21 10:58: POC Glucose 220 H Rhythm Strip Rhythm Strip: Sinus Rhythm Rate: 91 Ectopy: None Radiology Impression Renal Ultrasound 07/20/21 13:12 IMPRESSION: There are no acute findings. Electronically Signed: Jordon Pappas MD at 18:44 EST , Service support , Chest X-Ray 07/21/21 07:51 IMPRESSION: Diffuse bilateral pulmonary infiltrates. Electronically Signed: Teto De La Torre MD at 11:53 EST , Service support , Charges/Coding Visit Charges Inpatient E&M: 48932 Init Hosp L3
--- NOTE | 2021-07-21 15:54 | NURSING ---
assistant signal maintainer called again at this time for an ETA for midline. Answering service stated they would send a message to the nurse again, awaiting a call back.
--- NOTE | 2021-07-21 16:38 | NURSING ---
pt had removed bipap to side of her face and was hollering to take it off. refused bipap for about 3 minutes, spo2 showed 45%. pt finally agreed to have bipap put back on.
[2021-07-21 16:51] LABS: Allen Test Positive; Base Excess -13 mmol/L (-2 to +2); Blood Gas Specimen Type ART; FI02 100; O2 Delivery Device BiPAP; PEEP 10; PO2 71 mmHG (75-100); RR 12; SITE L Radial; SO2 92 % (95-99); Total Carbon Dioxide 15 mmol/L; pCO2 31.4 mmHg (35-45); pH 7.26 (7.35-7.45)
[2021-07-21 17:05] LABS: Bedside Glucose 259 mg/dL (70-110)
[2021-07-21] MEDS: Atorvastatin Calcium 10 MG Tablet PO (20:10)
[2021-07-21 20:36] LABS: Bedside Glucose 291 mg/dL (70-110)
--- NOTE | 2021-07-21 20:41 | NURSING ---
Patient keeps ripping off BIPAP, will not allow this RN to put back on, keeps putting hands in the way and turning head. This RN explained to patient that if she does not wear BIPAP she could . Patient able to tolerate and allow this RN to put on NRB at 15L. Sp02 currently at 88%.
--- NOTE | 2021-07-21 20:50 | NURSING ---
pt restless, took off bipap resisting staff replacing it. already had katerina, primary rn in with pt, cps called to assist will notify
--- NOTE | 2021-07-21 20:51 | NURSING ---
Sp02 at 47% with NRB at 15L. This RN was able to get BIPAP at 100% back on.
--- NOTE | 2021-07-21 20:53 | NURSING ---
spoke to regarding pox and pt removing bipap, see physician notification.
--- NOTE | 2021-07-21 20:53 | NURSING ---
Acess RN did not feel comfortable placing midline at this time d/t patients current respiratory status.
--- NOTE | 2021-07-21 20:55 | PCM.HOSP.N ---
Hospitalist Note Patient agitated, not tolerating BiPAP well. Even having difficulty laying flat for midline insertion attempts. Will attempt low-dose Ativan x1 to see if can improve with agitation as patient did have Seroquel without marked improvement. Patient's family updated per day hospitalist about ongoing decline and family is aware that BiPAP may not be effective with current DNR CCA no intubation, no aggressive intervention status. Discussed with nursing staff and did recommend given her current situation that family be allowed to see her as eminent decline is suspected.
[2021-07-21] MEDS: LORazepam 2 MG/ML Syringe 0.5 MG IV (21:05)
--- NOTE | 2021-07-21 21:10 | NURSING ---
called pt sister basia updated on pt condition not wanting to wear O2 or bipap, pt had ativan to help calm her. Sister aware from call from naresh hopson that pt may not make it through this illness. Sister wants pt wishes to be followed no intubation and if pt does not want to wear bipap it is ok. sister aware that pt may without it. no family live in [place] to come and see pt. sister states she agrees with following pt code status and keeping her comfortable. primary rn aware
--- NOTE | 2021-07-21 21:24 | PCM.RX.CS ---
Consult Pharmacy has been consulted to manage selected antiobiotic: Vancomycin Type of Consult: New start Labs: Sodium 139 mmol/L (136-145) 07/20/21 06:40 Potassium 4.6 mmol/L (3.5-5.1) 07/20/21 06:40 Chloride 113 mmol/L (98-107) H 07/20/21 06:40 Carbon Dioxide 18.0 mmol/L (21.0-32.0) L 07/20/21 06:40 Anion Gap 8 (5-15) 07/20/21 06:40 BUN 77 mg/dL (7-18) H 07/20/21 06:40 Creatinine 2.73 mg/dL (0.55-1.02) H 07/20/21 06:40 Est GFR (MDRD) Af Amer 22 mL/min (>60) L 07/20/21 06:40 Est GFR (MDRD) Non-Af 18 mL/min (>60) L 07/20/21 06:40 BUN/Creatinine Ratio 28.2 RATIO (10-20) H 07/20/21 06:40 Glucose 107 mg/dL (74-106) H 07/20/21 06:40 Goal Trough: 15-20 mcg/mL Pharmacy Plan for Drug Dosing: Pt received a x1 dose of 2000mg on 07/21/21 at 1629. Due to pts crcl being <20 mls/min recommend no further doses until a random level is drawn to assess clearance. Pharmacy Service will continue to monitor and adjust dosing as required. Follow-Up Labs: Trough Vancomycin - 07/23/21 at 0600
[2021-07-22] VITALS (12 sets, daily range): BP systolic 139; BP diastolic 60; PULSE 43–79; RESP 12–37; TEMP 36.4–36.7; O2SAT 64–95
--- NOTE | 2021-07-22 03:16 | CPS ---
pt has ratkeith, RN aware
[2021-07-22] MEDS: Morphine 2 MG/ML Syringe IV (04:06)
[2021-07-22] MEDS: Ondansetron 4 MG/2 ML Vial IV (04:09)
[2021-07-22] MEDS: 0.9% Saline Lock 10 ML Syringe IV (04:09)
--- NOTE | 2021-07-22 04:22 | NURSING ---
spoke to pt sister to update her on pt condition, pox in high 70's on bipap, pt unresponsive verballly, has been restless with arms morphine given as a comfort measure. offered to transfer call in to pt room and rn will hold phone to pt ear for sister to talk to pt. sister agreed and was very appreciative. primary rn in with pt holding phone to pt ear. 2 friends are listed on pt demographic list sister states that she has been in contact with these 2 friends and they are aware of pt condition.
--- NOTE | 2021-07-22 04:47 | NURSING ---
Spoke with friend Luci Goldsmith about patients decline, she is aware of situation. This RN and musical instrument supervisor allowed her to come and visit. This RN explained to her that she will be required to wear PPE provied to her. She is okay with this. ARMORED CABLE MACHINE OPERATOR called and updated.
[2021-07-22] MEDS: Furosemide 40 MG/4 ML Vial IV (10:35)
--- NOTE | 2021-07-22 11:12 | CASEMGMT ---
Pt did tell case management that her sister, Evelin Zafar is her healthcare POA, and she needs to get copies to the hospital. LEIGH ANN Up
[2021-07-22 11:31] LABS: Bedside Glucose 141 mg/dL (70-110)
--- NOTE | 2021-07-22 12:01 | NURSING ---
remdesivir is not on the unit
--- NOTE | 2021-07-22 13:06 | NURSING ---
pt passed while this nurse was off unit. geraldo greeen rn/charge and gurdeep john lpn verified .
--- NOTE | 2021-07-22 15:00 | PCM.DC.SUM ---
Providers Date of Admission: 07/18/21 Primary Care Physician: Dr. Annette Mckinley MD Consultations 07/21/21 08:45 Consult: Batch Operator / Pulmonary Medicine Routine Consulting Provider: Pulmonary Medicine barry Coker Reason for Consult: acute hypoxic respiratory failure EMERGENT Consult: No Notified: Yes Date Notified: 07/21/21 Time Notified: 08:45 Method of Notification: Text Reason For Visit: COVID/ASHISH Diagnosis Discharge Diagnosis (1) Pneumonia due to COVID-19 virus: Status: Acute Code(s): U07.1 - COVID-19; J12.82 - Pneumonia due to coronavirus disease 2019 Medications at Discharge Home Medications insulin aspart U-100 100 unit/mL (3 mL) subcutaneous pen 15 unit SC TIDCM ml 07/26/17 meclizine 25 mg PO TID PRN PRN #14 tab 11/20/19 amlodipine 10 mg tablet See Rx Instructions .ROUTE .COMPLEX #90 tablet 12/25/20 clopidogrel 75 mg tablet 75 mg PO DAILY #90 tab 12/25/20 isosorbide mononitrate 60 mg tablet,extended release 24 hr 60 mg PO DAILY #90 tab 12/25/20 lisinopril 20 mg tablet 20 mg PO BID #180 tab 12/25/20 metoprolol succinate 50 mg tablet,extended release 24 hr See Rx Instructions .ROUTE .COMPLEX #90 tablet 12/25/20 simvastatin 20 mg tablet See Rx Instructions .ROUTE .COMPLEX #90 tablet 12/25/20 nitroglycerin 0.4 mg sublingual tablet 0.4 mg SUBLINGUAL Q5M PRN #25 tab 06/26/21 Hospital Course Operations None Procedures None Summary of Care Provided Minutes Spent on Discharge: 45 Weight / BMI Weight Weight: 177 lb 14.609 oz Body Mass Index (BMI) 33.3 ABG / Lab / Microbiology Data Result Diagrams: 07/20/21 06:40 07/20/21 06:40 Laboratory: Laboratory Results - last 24 hr 07/21/21 16:26: POC Glucose 259 H 07/21/21 20:01: POC Glucose 291 H 07/22/21 10:32: POC Glucose 141 H ABG: ABG 07/21/21 16:42 Specimen Type ART Sample Site L Radial pH 7.26 L Bicarbonate Actual 14.0 L Total CO2 15 Base Excess -13 L O2 Saturation 92 L O2 % 100 ABG pCO2 31.4 L ABG pO2 71 L Chilo Test Positive Respiration Rate 12 O2 Delivery Device BiPAP POC PEEP 10 Clinical Comments 23/04 12 Discharge Plan Admission Admit Date/Time: 07/18/21 12:17 Attending Provider: Jennifer Davis Primary Care Provider: Annette Mckinley Consulting Providers: Shaheed Lau ; Carlos Adamson ; Shara Godfrey INVOICE CLASSIFICATION CLERK Disposition Disposition (needs filled in before D/C Order can be placed):
--- NOTE | 2021-07-22 15:05 | EXP.PCM_ITS ---
Preliminary Cause of Preliminary Cause of Preliminary Cause of : Acute hypoxic respiratory failure due to COVID-19 pneumonia. Date of Admission: 07/18/21 Principle Diagnosis Problem List: Active and Suspected Problems (Updated 07/18/21 @ 12:[address] Alexei Blair MD) Pneumonia due to COVID-19 virus (Acute) Hypoxia (Acute) Acute kidney injury (Acute) History of CA (myocardial infarction) (Acute) History of diabetes mellitus (Acute) Hospital Course Patient is a 70 y/o F with a past medical history as outlined was admitted through the ED on 07/18/2021 with a complaint of weakness and shortness of breath which have been going on for about a week. She had associated fever and chills as well as diarrhea. Patient was unvaccinated and had tested positive for COVID about 3 days prior to admission. On admission she was saturating at 54% on room air and improved on 4 L of oxygen. Chest x-ray showed bilateral lung inf iltrates and creatinine on admission was 2.87. Creatinine in 2019 had been seen to be 1.21. She was admitted and managed for acute hypoxic respiratory failure due to COVID-19 infection. She was started on Decadron and due to impaired kidney function, she could not get remdesivir. She was started on hydration with IV fluids. Patient was gradually weaned down to room air. Patient however BECAME acutely short of breath on 07/20/2021 and this was thought to be a combination of fluid overload as she had been receiving fluids as well as worsening of her COVID status. Patient was placed on oxygen and subsequently required up to 15 L of oxygen. She was transitioned to BiPAP. Patient insisted on being DNR CCA despite counseling that if she needed intubation and she did not get it, she would . Patient was placed on BiPAP but she kept on yanking of the BiPAP mask and was noncompliant. Patient's condition was discussed with the next of kin her Sister Evelin in [place] who wanted patient's wishes to be respected. Patient remained lethargic and obtunded and noncompliant with BiPAP. Patient on 07/22/2021 at 12:48 PM. Cause of is acute hypoxic respiratory failure due to COVID-19 pneumonia. Visit Charges Inpatient E&M: [id number] Disch Hosp
== END 2021-07-22 13:33 | DRG 177 ==
LOC: ED 12:22 → MS3 14:21
PROVIDERS: Admitting Provider Internal Medicine; Emergency Provider Emergency Medicine; PCP Internal Medicine; Visit Provider Student in an Organized Health Care Education/Training Program
DX: U07.1 COVID-19 (principal); J12.82 Pneumonia due to coronavirus disease 2019; J96.01 Acute respiratory failure with hypoxia; E43 Unspecified severe protein-calorie malnutrition; G93.41 Metabolic encephalopathy; N17.9 Acute kidney failure, unspecified; I13.0 Hypertensive heart and chronic kidney disease with heart failure and stage 1 through stage 4 chronic kidney disease, or unspecified chronic kidney disease; I50.32 Chronic diastolic (congestive) heart failure; I27.20 Pulmonary hypertension, unspecified; E11.22 Type 2 diabetes mellitus with diabetic chronic kidney disease; Z79.4 Long term (current) use of insulin; E11.51 Type 2 diabetes mellitus with diabetic peripheral angiopathy without gangrene; N18.31 Chronic kidney disease, stage 3a; E78.5 Hyperlipidemia, unspecified; I25.10 Atherosclerotic heart disease of native coronary artery without angina pectoris; I25.2 Old myocardial infarction; F41.9 Anxiety disorder, unspecified; E87.70 Fluid overload, unspecified; Z79.02 Long term (current) use of antithrombotics/antiplatelets; Z95.5 Presence of coronary angioplasty implant and graft; E66.9 Obesity, unspecified; Z68.33 Body mass index [BMI] 33.0-33.9, adult
CPT/HCPCS: 36415; 36600; 71045; 76770; 80053; 81001; 82570; 82803; 82962; 84540; 85025; 85379; 87086; 93005; 94002; 94003; 94762; 97116; 97162; 97165; 97530; 97802; 99251; 99285; J7030; J7040; J7050; A4216; G0463; J0248; J1940; J2405